=== PATIENT | female | born 1995 | race Caucasian/White ===

== ENCOUNTER 2023-02-17 13:00 | Outpatient (OUT) | payer BC, SELFPAY ==
--- NOTE | 2023-02-17 13:05 | US_ITS ---
[address] [address] Patient Name: DARRIUS VERGARA MRN: [id number] date: 1995 Sex: F Assigned Patient Location: US Current Patient Location: US Accession/Order Number: [id number] Exam Date: 02/17/2023 13:05 Report Date: 02/17/2023 15:37 At the request of: KATHY KIMBLE Procedure: US OB transvaginal EXAMINATION: US OB transvaginal HISTORY: MISSED MENSES COMPARISON: No relevant comparison available. FINDINGS: GESTATIONAL SAC: Present and normal appearing. YOLK SAC: Present and normal appearing. POLE: Present and normal appearing. CARDIAC: Present. UTERUS: Normal size and appearance. OVARIES: Right: Normal. Left: Normal. CERVIX: 3.3 cm in length and closed. CUL-DE-SAC: Normal. OTHER: None. AGE BY LMP: 8 weeks 3 days LASHELL BY LMP: 09/26/2023 AGE BY US CRL: 8 weeks 2 days LASHELL BY US CRL: 09/27/2023 US/US OB transvaginal IMPRESSION: 1. Single live intrauterine . Electronically authenticated by: CR MORENO Date: 02/17/2023 15:37
== END 2023-02-17 13:01 | disposition home or self-care (01) ==
LOC: US 13:00
PROVIDERS: Visit Provider Obstetrics & Gynecology
DX: Z34.91 Encounter for supervision of normal pregnancy, unspecified, first trimester (principal); Z3A.08 8 weeks gestation of pregnancy; N92.6 Irregular menstruation, unspecified
CPT/HCPCS: 76817

== ENCOUNTER 2023-03-01 14:10 | Outpatient (OUT) | payer BC, SELFPAY ==
--- OUTSIDE RECORDS SUMMARY | 2023-03-01 14:13 | XMS_ITS | CCD ---
Author Name Unknown Address [address] [place] [address] Organization [facility] Care Team Providers [facility] Manager Name Role Phone Mirna Bennett Primary Care Provider NO FAMILY, PHYSICIAN Primary Care Provider Unava Jammie Levy Attending Provider Mirna Bennett Primary Care Provider [phone] SAMSA, ANA Admitting Unavailable SAMSA, ANA Attending Unavailable SAMSA, ANA Consulting Unavailable SAMSA, ANA Admitting Unavailable SAMSA, ANA Attending Unavailable SAMSA, ANA Consulting Unavailable AGUBOSIM, KELSEY Consulting Unavailable RAAD, YARITZA Consulting Unavailable DR KATHY KIMBLE Admitting Unavailable SHYANNE, DR CHAVEZ Attending Unavailable DR KATHY KIMBLE Consulting Unavailable Julieth Winkler Unavailable Jammie Terry Unavailable Mirna Bennett MD Primary Care Provider ELICIA GONZALEZ Referring Unavailable MIRNA BENNETT Primary Care Unavailable ELICIA GONZALEZ Referring Unavailable MIRNA BENNETT Primary Care Unavailable Allergies Allergy Classification Reported Allergen(s) Allergy Type Date of Onset Reaction(s) Facility (2 sources) Amoxicillin-Pot Clavulanate Propensity to adverse reactions to drug 7 Other (See Comments) [facility] Phone: (3 sources) Bismuth-Containin g Compounds Propensity to adverse reactions to drug 6 [facility] Phone: (1 source) bismuth subsalicylate Drug Allergy 8 [facility] Repository (5 sources) bismuth subsalicylate Drug Allergy 1 hives, Other (See Comments) [facility] Medications Current Medications Medication Drug Class(es) Dates Sig (Normalized) Sig (Original) amoxicillin 500 mg oral capsule (1 source) Penicillin-class Antibacterial Start: 04-12-2022 take 1 capsule by mouth every eight hours Amoxicillin 500 MG 1 capsule Orally three times a day for 10 day(s) Mar, Active citalopram 10 mg oral tablet (4 sources) Serotonin Reuptake Inhibitor Start: 11-01-2017 take 1 tablet by mouth once daily citalopram (CELEXA) 10 MG tablet Take 1 tablet by mouth daily 30 tablet 3 12/17/2019 Active 21 day ethinyl estradiol 0.306332 mg/hr / etonogestrel 0.005 mg/hr vaginal system (7 sources) Progestin, Estrogen Start: 06-13-2018 NUVARING 0.12-0.015 MG/24HR vaginal ring NuvaRing Active fluocinonide 0.5 mg/ml topical cream (2 sources) Corticosteroid Start: 07-24-2019 fluocinonide (LIDEX) 0.05 % cream Apply topically 2 times daily. 60 g 1 07/24/2019 Active hydrocortisone 10 mg/ml / neomycin 3.5 mg/ml / polymyxin b 27705 unt/ml otic suspension (1 source) Aminoglycoside Antibacterial, Polymyxin-class Antibacterial, Corticosteroid Start: 04-12-2022 Ovlypfdy-Gwzhcztby-MX 3.5-49681-2 3 drops left ear Three times a day for 7 days Mar, Active ibuprofen 800 mg oral tablet (3 sources) Nonsteroidal Anti-inflammatory Drug Start: 07-03-2018 take 1 tablet by mouth three times daily as needed ibuprofen (ADVIL;MOTRIN) 800 MG tablet Take 800 mg by mouth 3 times daily as needed 0 07/03/2018 Active methylPREDNISolone 4 mg oral tablet (1 source) Corticosteroid Start: 11-30-2021 methylPREDNISolone 4 MG as directed Orally Once a day for 6 days Nov, Active omeprazole 20 mg delayed release oral capsule (4 sources) Proton Pump Inhibitor Start: 12-17-2019 take 1 capsule by mouth twice daily omeprazole (PRILOSEC) 20 MG delayed release capsule Take 1 capsule by mouth 2 times daily 30 capsule 3 12/17/2019 Active Start: 11-01-2017 take 1 capsule by mo [facility] once daily omeprazole (PRILOSEC) 40 MG delayed release capsule TAKE 1 CAPSULE BY MOUTH DAILY 30 capsule 1 11/01/2017 Active Phentermine (1 source) Sympathomimetic Amine Anorectic Adipex-P Active 0.25 mg, 0.5 mg dose 1.5 ml semaglutide 1.34 mg/ml pen injector (1 source) Ozempic (0.25 or 0.5 MG/DOSE) 2 MG/1.5ML Subcutaneous for 56 Days Active triamcinolone acetonide 1 mg/ml topical cream (2 sources) Corticosteroid Start: 06-29-2018 triamcinolone (KENALOG) 0.1 % cream Indications: Bug bite, initial encounter Apply topically 2 times daily. 45 g 0 06/29/2018 Active Wrist Splint/Right XL - (1 source) Wrist Splint/Rig ht XL - as directed Active Completed/Discontinued Medications Medication Drug Class(es) Dates Sig (Normalized) Sig (Original) ioversol (OPTIRAY) 74 % injection 100 mL (1 source) Start: 02-12-2022 End: 02-12-2022 ioversol (OPTIRAY) 74 % injection 100 mL promethazine hydrochloride 25 mg oral tablet (4 sources) Phenothiazine Start: 01-25-2022 End: 02-14-2022 take 1 tablet by mouth four times daily as needed for nausea promethazine (PHENERGAN) 25 MG tablet Take 1 tablet by mouth 4 times daily as needed for Nausea 40 tablet 1 01/25/2022 02/14/2022 Phenergan Active Problems Active Problems Problem Classification Problem Date Documented Date Episodic/Chronic Abdominal pain (2 sources) Right upper quadrant pain; Translations: [RUQ pain] Episodic Allergic reactions (3 sources) Atopic dermatitis; Translations: [Intrinsic (allergic) eczema] Onset: 07-24-2019 07-24-2019 Chronic Anxiety disorders (3 sources) Mixed anxiety and depressive disorder; Translations: [Other specified anxiety disorders] Onset: 05-26-2015 05-26-2015 Chronic Esophageal disorders (3 sources) Gastroesophageal reflux disease; Translations: [Gastro-esophageal reflux disease without esophagitis] Onset: 04-27-2016 04-27-2016 Chronic Immunizations and screening for infectious disease (5 sources) Encounter for screening for human papillomavirus (HPV); Translations: [Contact with and (suspected) exposure to other viral communicable diseases] Onset: 08-13-2021 Resolved: 11-11-2021 Episodic Other connective tissue disease (1 source) Trochanteric bursitis of left hip; Translations: [Trochanteric bursitis, left hip] Onset: 01-25-2022 01-25-2022 Episodic Other ear and sense organ disorders (1 source) Unspecified acute noninfective otitis externa, left ear Episodic Other injuries and conditions due to external causes (4 sources) Food in respiratory tract, part unspecified causing asphyxiation, initial encounter; Translations: [FOOD RESP TRACT PRT UNS ASPHYX INIT] Onset: 06-04-2021 Episodic Other lower respiratory disease (1 source) Dyspnea, unspecified; Translations: [DYSPNEA UNSPECIFIED] Onset: 06-09-2021 Episodic Other nutritional; endocrine; and metabolic disorders (1 source) Obesity, unspecified; Translations: [OBESITY UNSPECIFIED] Onset: 06-09-2021 Chronic Other nutritional; endocrine; and metabolic disorders (1 source) Body mass index (BMI) 33.0-33.9, adult; Translations: [BODY MASS INDEX BMI 33.0-33.9 ADULT] Onset: 06-09-2021 Chronic Other screening for suspected conditions (not mental disorders or infectious disease) (4 sources) Encounter for screening for malignant neoplasm of cervix; Translations: [ENC SCREENING MALIG NEOPLASM CERV] Onset: 08-12-2021 Episodic Other skin disorders (1 source) Foreign body granuloma of the skin and subcutaneous tissue Episodic Otitis media and related conditions (1 source) Otitis media, unspecified, left ear Episodic Sprains and strains (2 sources) Acetabular labrum tear; Translations: [Other sprain of left hip, initial encounter] Onset: 02-12-2022 Episodic Substance-related disorders (1 source) Nicotine dependence, cigarettes, uncomplicated; Translations: [NICOTINE DEPEND CIGARETTES UNCOMP] Onset: 06-09-2021 Chronic Unclassified (1 source) COUGH, UNSPECIFIED; Translations: [COUGH, UNSPECIFIED] Onset: 06-09-2021 Unclassified (1 source) PERSONAL HISTORY OF COVID-19; Translations: [PERSONAL HISTORY OF COVID-19] Onset: 06-09-2021 Unclassified (1 source) CONTACT W/AND (SUSP) EXPOS COVID-19; Translations: [CONTACT W/AND (SUSP) EXPOS COVID-19] Onset: 06-04-2021 Past or Other Problems Problem Classification Problem Date Documented Da te Episodic/Chronic Esophageal disorders (3 sources) Chalasia of lower esophageal sphincter; 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] Onset: 02-29-2016 12-01-2016 Episodic Nausea and vomiting (3 sources) Nausea and vomiting; Translations: [Nausea with vomiting, unspecified] Onset: 10-13-2016 10-13-2016 Episodic Other and unspecified benign neoplasm (3 sources) Benign neoplastic disease; Translations: [Melanocytic nevi, unspecified] Onset: 05-26-2015 05-26-2015 Episodic Other connective tissue disease (1 source) Pain in left finger(s) Onset: 08-17-2021 Resolved: 08-17-2021 Episodic Other connective tissue disease (1 source) Other enthesopathies, not elsewhere classified Onset: 08-17-2021 Resolved: 08-17-2021 Episodic Other infections; including parasitic (3 sources) Infestation by Sarcoptes scabiei rosmery hominis; Translations: [Scabies] Onset: 05-26-2015 Resolved: 09-29-2016 09-29-2016 Episodic Other non-traumatic joint disorders (2 sources) Knee pain; Translations: [Knee pain] Onset: 05-26-2015 05-26-2015 Episodic Other non-traumatic joint disorders (1 source) Pain in unspecified knee; Translations: [Pain in joint, lower leg] Onset: 05-26-2015 05-26-2015 Episodic Unclassified (2 sources) Patient encounter status; Translations: [Visit for gynecologic examination] Onset: 05-26-2015 Resolved: 11-24-2017 11-24-2017 Viral infection (3 sources) Plane wart; Translations: [Other viral warts] Onset: 05-26-2015 05-26-2015 Episodic Viral infection (1 source) COVID-19 Onset: 11-11-2021 Resolved: 11-11-2021 Results Test Name Value Interpretation Reference Range Facility IR INJ ARTHROGRAM HIP LEFTon 02-13-2022 IR INJ ARTHROGRAM HIP LEFT EXAMINATION: FLUOROSCOPIC GUIDED LEFT HIP ARTHROGRAM, 02/12/2022 8:45 am COMPARISON: None. HISTORY: ORDERING SYSTEM PROVIDED HISTORY: Tear of left acetabular labrum, initial encounter TECHNOLOGIST PROVIDED HISTORY: Is the patient ?->No FLUOROSCOPY DOSE AND TYPE OR TIME AND EXPOSURES: 54 seconds; D AP 83 cGy cm2 PROCEDURE: ELEMENTARY TUTOR: Gaudencio Chávez MD Informed consent was obtained and universal protocol was observed. Time out was performed with confirmation of patient identity, procedure to be performed and site. A skin entry site was selected with fluoroscopy. Under standard sterile condition, local anesthesia with subcutaneous 1% lidocaine was administered. A 22 gauge spinal needle was inserted into the left hip joint under fluoroscopic guidance. Approximately 15 mL of a standard mixture of iodinated contrast and gadolinium (0.2 cc ProHance in 50 cc Optiray 300) was injected. The needle was removed, spot images were obtained and a sterile bandage was placed. Spot views show adequate filling of the joint space. Patient is sent for subsequent MRI. EBL: None IMPRESSION: Successful fluoroscopic-guided left hip arthrogram. Patient was transferred to MRI for further imaging. Interpreted by: Gaudencio Chávez MD Signed by: Gaudencio Chávez MD 02/12/22 Final result Normal [facility] IR INJ ARTHROGRAM HIP LEFTon 02-12-2022 Successful fluoroscopic-guided left hip arthrogram. Patient was transferred to MRI for further imaging. [facility] RIS CONSOLIDATED EXAMINATION: FLUOROSCOPIC GUIDED LEFT HIP ARTHROGRAM, 02/12/2022 8:45 am COMPARISON: None. HISTORY: ORDERING SYSTEM PROVIDED HISTORY: Tear of left acetabular labrum, initial encounter TECHNOLOGIST PROVIDED HISTORY: Is the patient ?->No FLUOROSCOPY DOSE AND TYPE OR TIME AND EXPOSURES: 54 seconds; D AP 83 cGy cm2 PROCEDURE: ELEMENTARY TUTOR: Gaudencio Chávez MD Informed consent was obtained and universal protocol was observed. Time out was performed with confirmation of patient identity, procedure to be performed and site. A skin entry site was selected with fluoroscopy. Under standard sterile condition, local anesthesia with subcutaneous 1% lidocaine was administered. A 22 gauge spinal needle was inserted into the left hip joint under fluoroscopic guidance. Approximately 15 mL of a standard mixture of iodinated contrast and gadolinium (0.2 cc ProHance in 50 cc Optiray 300) was injected. The needle was removed, spot images were obtained and a sterile bandage was placed. Spot views show adequate filling of the joint space. Patient is sent for subsequent MRI. EBL: None [facility] RIS Gaudencio Escalona MD - 02/12/2022 EXAMINATION: FLUOROSCOPIC GUIDED LEFT HIP ARTHROGRAM, 02/12/2022 8:45 am COMPARISON: None. HISTORY: ORDERING SYSTEM PROVIDED HISTORY: Tear of left acetabular labrum, initial encounter TECHNOLOGIST PROVIDED HISTORY: Is the patient ?->No FLUOROSCOPY DOSE AND TYPE OR TIME AND EXPOSURES: 54 seconds; D AP 83 cGy cm2 PROCEDURE: ELEMENTARY TUTOR: Gaudencio Chávez MD Informed consent was obtained and universal protocol was observed. Time out was performed with confirmation of patient identity, procedure to be performed and site. A skin entry site was selected with fluoroscopy. Under standard sterile condition, local anesthesia with subcutaneous 1% lidocaine was administered. A 22 gauge spinal needle was inserted into the left hip joint under fluoroscopic guidance. Approximately 15 mL of a standard mixture of iodinated contrast and gadolinium (0.2 cc ProHance in 50 cc Optiray 300) was injected. The needle was removed, spot images were obtained and a sterile bandage was placed. Spot views show adequate filling of the joint space. Patient is sent for subsequent MRI. EBL: None IMPRESSION: Successful fluoroscopic-guided left hip arthrogram. Patient was transferred to MRI for further imaging. [facility] Phone: Radiology Study observation (narrative) [facility] Phone: IR INJ ARTHROGRAM HIP LEFTOr dered By: Gaudencio Chávez on 02-12-2022 [facility] Phone: MRI HIP LEFT W CONTRASTon MRI HIP LEFT W CONTRAST EXAMINATION: MRI OF THE LEFT HIP WITH CONTRAST, 02/12/2022 9:23 am TECHNIQUE: Multiplanar multisequence MRI of the left hip was performed with the administration of intravenous contrast. COMPARISON: Left hip plain radiographs from 12/14/2021, left hip arthrogram from 02/12/2022 HISTORY: ORDERING SYSTEM PROVIDED HISTORY: Tear of left acetabular labrum, initial encounter TECHNOLOGIST PROVIDED HISTORY: STAT Creatinine as needed:->No 26-year-old female with suspected left acetabular labral tear FINDINGS: BONE MARROW: Bone marrow signal intensity within the visualized osseous structures is within normal limits. No left femoral head AVN. HIP JOINT: Moderate contrast in the left hip joint space consistent with preceding arthrogram. Left femoral head properly located within the left acetabulum without clear evidence for acute fracture, dislocation or femoral head flattening. LABRUM: No left acetabular labral tear. No paralabral cyst formation. BURSAE: No significant fluid in the left iliopsoas or greater trochanteric bursa. SCIATIC NERVE: Visualized left-sided sciatic nerve demonstrates normal course, contour, and caliber on limited coronal T1-weighted imaging. MUSCLES / TENDONS: Visualized muscles/tendons appear grossly intact without evidence of tearing. INTRAPELVIC CONTENTS / SOFT TISSUES: Limited images of the intrapelvic contents demonstrate no acute abnormality. IMPRESSION: 1. No left acetabular labral tear or paralabral cyst formation. 2. No acute osseous abnormality. No left femoral head AVN. RECOMMENDATIONS: Unavailable Interpreted by: Anthony Villanueva MD Signed by: Anthony Villanueva MD 02/12/22 Final result Normal [facility] SARS-CoV-2 (COVID-19) RNA NA A+probe Ql (Resp)on 11-11-2021 SARS-CoV-2 (COVID-19) RNA ANNABELLE+probe Ql (Unsp spec) Positive [facility] Other PAP ACOG PANEL 2: 21 to 29on 08-17-2021 . . Normal [facility] Comment on above: Performed By: #### [id number] #### [facility] [address] [address] [address] Cesar Young Age Gdln ACOG Testing - Normal [facility] Comment on above: Performed By: #### [id number] #### [facility] [address] [place], [place] [address] Dr. Cesar Young DIAGNOSIS: Comment [facility] Comment on above: Result Comment: NEGA TIVE FOR INTRAEPITHELIAL LESION OR MALIGNANCY. Performed By: #### [id number] #### [facility] [address] [place], [place] [address] Dr. Cesar Young Methodology: Comment [facility] Comment on above: Result Comment: This liquid based ThinPrep(R) pap test was screened with the use of an image guided system. Performed By: #### [id number] #### [facility] [address] [place] [address] Dr. Cesar Young Note: Comment Normal [facility] Comment on above: Result Comment: The Pap smear is a screening test designed to aid in the detection of premalignant and malignant conditions of the uterine cervix. It is not a diagnostic procedure and should not be used as the sole means of detecting cervical cancer. Both false-positive and false-negative reports do occur. . Performed By: #### [id number] #### [facility] [address] [place] [address] Dr. Cesar Young Performed by: Comment Normal [facility] Comment on above: Result Comment: Linda Taveras, Value Advisor (ASCP) Performed By: #### [id number] #### [facility] [address] [place] [address] Dr. Cesar Young Reflex Criteria: Comment Normal [facility] Comment on above: Result Comment: The HPV DNA reflex criteria were not met with this specimen result therefore, no HPV testing was performed. . Performed By: #### [id number] #### [facility] [address] [place] [address] Dr. Cesar Young Specimen adequacy: Comment Normal [facility] Comment on above: Result Comment: Sati sfactory for evaluation. Endocervical and/or squamous metaplastic cells (endocervical component) are present. Performed By: #### [id number] #### [facility] [address] [place] [address] Dr. Cesar Young XR hand LT min 3V*on 022 XR hand LT min 3V* [facility] [place] [address] [place] [address] XRay Report Signed Patient: Vianey Chen MR#: [id number] 0 : 1995 Acct:[id number] Age/Sex: 26 / F ADM Date: 08/17/21 Loc: XDUCLY Room: Type: [facility] Attending Dr: Julieth Winkler NP-C Copies to: DAVID Salmeron Ordering Provider: DAVID Salmeron Date of Service: 08/17/21 XR/XR hand LT min 3V*: Pain of left thumb LEFT HAND - 4 views CLINICAL DATA: Patient injured left hand yesterday and has bruising, pain and swelling over the metacarpal phalangeal joint of the thumb and at the distal first metacarpal COMPARISON: None AP, lateral and oblique views were obtained along with a supplemental lateral view at the thumb. There is no evidence of fracture or dislocation. There are no significant soft tissue abnormalities. XR/XR hand LT min 3V* IMPRESSION: NO ACUTE BONY INJURY. Impression dictated by: Ailin Borrego M.D.08/17/2021 2:53 PM Dictation Location: [place] [address] Transcribed By: [facility] 08/17/21 1453 Dictated By: Ailin Borrego MD 08/17/21 1451 Signed By: 08/17/21 145 Normal [facility] XR hand LT min 3V* [facility] Other XR hand LT min 3V* [facility] Other XR hand LT min 3V* [address] [place] [address] [facility] Other XR hand LT min 3V* [place] [address] [facility] Other XR hand LT min 3V* XRay Report [facility] Other XR hand LT min 3V* Signed [facility] Other XR hand LT min 3V* Patient: Vianey Chen MR#: [id number] [facility] Other XR hand LT min 3V* 0 [facility] Other XR hand LT min 3V* : 1995 Acct:[id number] [facility] Other XR hand LT min 3V* Age/Sex: 26 / F ADM Date: 08/17/21 [facility] Other XR hand LT min 3V* Loc: XDUCLY Room: Type: [facility] Other XR hand LT min 3V* Attending Dr: Julieth HERNANDEZ [facility] Other XR hand LT min 3V* Copies to: DAVID Salmeron [facility] Other XR hand LT min 3V* Ordering Provider: DAVID Salmeron [facility] Other XR hand LT min 3V* Date of Service: 08/17/21 [facility] Other XR hand LT min 3V* XR/XR hand LT min 3V*: Pain of left thumb [facility] Other XR hand LT min 3V* LEFT HAND - 4 views [facility] Other XR hand LT min 3V* CLINICAL DATA: Patient injured left hand yesterday and has bruising, pain and swelling over the [facility] Other XR hand LT min 3V* metacarpal phalangea l joint of the thumb and at the distal first metacarpal [facility] Other XR hand LT min 3V* COMPARISON: None [facility] Other XR hand LT min 3V* AP, lateral and oblique views were obtained along with a supplemental lateral view at the thumb. [facility] Other XR hand LT min 3V* There is no evidence of fracture or dislocation. There are no significant soft tissue [facility] Other XR hand LT min 3V* abnormalities. No rt [employer] Other XR hand LT min 3V* XR/XR hand LT min 3V* [facility] Other XR hand LT min 3V* IMPRESSION: [facility] Other XR hand LT min 3V* NO ACUTE BONY INJURY. [facility] Other XR hand LT min 3V* Impression dictated by: Ailin Borrego M.D.08/17/2021 2:53 PM [facility] Other XR hand LT min 3V* Dictation Location: [facility] Other XR hand LT min 3V* Transcribed By: PWS 08/17/21 1453 [facility] Other XR hand LT min 3V* Dictated By: Ailin Borrego MD 08/17/21 145 [employer] Other XR hand LT min 3V* Signed By: [facility] Other XR hand LT min 3V* 08/17/21 1453 [facility] Other PREG HCG QUALon 06-04-2021 , QUAL Negative Normal NEGATIVE [facility] Comment on above: Performed By: #### P REG #### [facility] [address] [address] [address] Cesar Young [facility]on SARS-CoV-2 (COVID-19) RNA ANNABELLE+probe Ql (Unsp spec) Not detected Normal NOT DETECTED [facility] Comment on above: Result Comment: This test is not yet approved or cleared by the [place] FDA. When there are no FDA-approved or cleared tests available, and other criteria are met, FDA can make tests available under an emergency access mechanism called an Emergency Use Authorization (EUA). The EUA for this test is supported by the Service Cleaner of Health and Human Service's (HHS's) declaration that circumstances exist to justify the emergency use of in vitro diagnostics for the detection and/or diagnosis of the virus that causes COVID-19. This EUA will remain in effect (meaning this test can be used) for the duration of the COVID-19 declaration justifying emergency of IVDs, unless it is terminated or revoked by FDA (after which the test may no longer be used). When diagnostic testing is negative, the possibility of a false negative should be considered in the context of a patient's recent exposures and the presence of clinical signs and symptoms consistent with SARS-CoV-2. Performed By: #### [facility] #### [facility] [address] [place], [place] [address] Dr. Cesar Young [id number] 03-28-2021 SARS-CoV-2 (COVID-19) RNA ANNABELLE+probe Ql (Unsp spec) Normal [facility] Comment on above: Performed By: #### C OVID #### [address] [address] [place] [address] Consultant Intern: Vijay Tinsley MD SARS-CoV-2 (COVID-19) RNA ANNABELLE+probe Ql (Unsp spec) Detected Abnormal [facility] Comment on above: Result Comment: The specimen is POSITIVE for SARS-Cov-2, the novel coronavirus associated with COVID-19. Millie SARS-CoV-2 for use on the [employer]/8800 Systems is a real-time RT-PCR test intended for the qualitative detection of nucleic acids from SARS-CoV-2 in clinician-collected nasal, nasopharyngeal, and oropharyngeal swab specimens from individuals who meet COVID-19 clinical and/or epidemiological criteria. [facility] SARS-CoV-2 is for use only under Emergency Use Authorization (EUA) in laboratories certified under Clinical Laboratory Improvement Amendments of 1988 (CLIA), 42 U.S.C. ?263a, that meet requirements to perform high or moderate complexity tests. An individual without symptoms of COVID-19 and who is not shedding SARS-CoV-2 virus would expect to have a negative (not detected) result in this assay. Fact sheet for Healthcare Providers: https://www.fda.gov/media/416050/download Fact sheet for Patients: https://www.fda.gov/media/596140/download METHODOLOGY: RT-PCR Results reported to the appropriate Health Department Performed By: #### C OVID #### [facility] [address] [place], [place] [address] Consultant Intern: Vijay Tinsley MD [id number] 03-27-2021 SARS-CoV-2 (COVID-19) RNA ANNABELLE+probe Ql (Unsp spec) NOT REPORTED Normal [facility] Comment on above: Performed By: #### C OVID #### [facility] [address] [place] [address] Consultant Intern: Vijay Tinsley MD CBC Auto Differentialon 04-01 Basophils (Bld) [#/Vol] 0.10 10*3/uL [facility] Phone: Basophils/100 WBC (Bld) 1 % 0 - 2 % [facility] Phone: Differential Type NOT REPORTED [facility] Phone: Eosinophils (Bld) [#/Vol] 0.20 10*3/uL [facility] Phone: Eosinophils/100 WBC (Bld) 2 % 0 - 4 % [facility] Phone: Erythrocyte distribution width (RBC) [Ratio] 13.9 % 11.5 - 14.9 % [facility] Phone: Hematocrit (Bld) [Volume fraction] 43.1 % 36 - 46 % [facility] Phone: Hemoglobin (Bld) [Mass/Vol] 14.2 g/dL 12 - 16 g/dL [facility] Phone: Lymphocytes (Bld) [#/Vol] 2.10 10*3/uL [facility] Phone: Lymphocytes/100 WBC (Bld) 25 % 24 - 44 % [facility] Phone: MCH (RBC) [Entitic mass] 28.7 pg 26 - 34 pg [facility] Phone: MCHC (RBC) [Mass/Vol] 33.0 g/dL 31 - 37 g/dL [facility] Work Phone: MCV (RBC) [Entitic vol] 87.2 fL 80 - 100 fL [email or web address] Work Phone: Monocytes (Bld) [#/Vol] 0.60 10*3/uL [facility] Work Phone: Monocytes/100 WBC (Bld) 7 % 1 - 7 % [email or web address] Work Phone: Platelet mean volume (Bld) [Entitic vol] 7.7 fL 6 - 12 fL [email or web address] Work Phone: Platelets (Bld) [#/Vol] 359 10*3/uL [email or web address] Work Phone: Platelets (Bld) [#/Vol] NOT REPORTED [facility] Work Phone: RBC (Bld) [#/Vol] 4.94 10*6/uL 4 - 5.2 m/uL [facility] Work Phone: RBC morphology finding Nom (Bld) NOT REPORTED [facility] Work Phone: Segmented neutrophils/100 WBC (Bld) 65 % 36 - 66 % [facility] Work Phone: Segs Absolute 5.40 [facility] Work Phone: WBC (Bld) [#/Vol] NOT REPORTED per 100 WBC [facility] Work Phone: WBC (Bld) [#/Vol] 8.4 10*3/uL [facility] Work Phone: WBC Morphology NOT REPORTED [facility] Work Phone: Comprehensive Metabolic Pane dawit 04-24-2020 Albumin [Mass/Vol] 3.9 g/dL 3.5 - 5.2 g/dL [facility] Work Phone: Albumin/Globulin [Mass ratio] NOT REPORTED [facility] Work Phone: ALP [Catalytic activity/Vol] 59 U/L 35 - 104 U/L [facility] Phone: ALT [Catalytic activity/Vol] 19 U/L 5 - 33 U/L [facility] Phone: Anion gap [Moles/Vol] 10 mmol/L 9 - 17 mmol/L [facility] Phone: AST [Catalytic activity/Vol] 15 U/L <32 [facility] Phone: Bilirubin Ql (U) <0.15 Low 0.3 - 1.2 mg/dL [facility] Phone: Bun/Cre Ratio NOT REPORTED [facility] Work Phone: Calcium [Mass/Vol] 9.2 mg/dL 8.6 - 10. 4 mg/dL [facility] Phone: Chloride [Moles/Vol] 104 mmol/L 98 - 107 mmol/L [facility] Phone: CO2 [Moles/Vol] 25 mmol/L 20 - 31 mmol/L [facility] Phone: Creatinine [Mass/Vol] 0.68 mg/dL 0.5 - 0.9 mg/dL [facility] Phone: GFR >60 >60 mL/min [facility] Phone: GFR Non- >60 >60 mL/min [facility] Phone: GFR/1.73 sq M predicted among non-blacks MDRD (S/P/Bld) [Vol rate/Area] [facility] Phone: Comment on above: Average GFR for 20-2 9 years old: 116 mL/min/1.73sq m Chronic Kidney Disease: <60 mL/min/1.73sq m Kidney failure: <15 mL/min/1.73sq m eGFR calculated using average adult body mass. Additional eGFR calculator available at: http://www.COCC.com/multiple_crcl_2012.htm GFR/1.73 sq M predicted among non-blacks MDRD (S/P/Bld) [Vol rate/Area] NOT REPORTED [facility] Phone: Glucose [Mass/Vol] 135 mg/dL High 70 - 99 mg/dL [facility] [employer] Phone: Interpretation and review of laboratory results Abnormal [facility] Phone: Potassium [Moles/Vol] 3.7 mmol/L 3.7 - 5.3 mmol/L [facility] Phone: Protein [Mass/Vol] 7.1 g/dL 6.4 - 8.3 g/dL [employer] Phone: Sodium [Moles/Vol] 139 mmol/L 135 - 144 mmol/L [facility] Phone: Urea nitrogen [Mass/Vol] 11 mg/dL 6 - 20 mg/dL [facility] Phone: Otheron 04-24-2020 Immature granulocytes (Bld) [#/Vol] NOT REPORTED 0 % [facility] Phone: US GALLBLADDER RUQon 04-24- 021 Unremarkable right upper quadrant ultrasound. [facility] Phone: EXAMINATION: RIGHT UPPER QUADRANT ULTRASOUND 04/24/2020 8:04 am COMPARISON: None. HISTORY: ORDERING SYSTEM PROVIDED HISTORY: RUQ pain FINDINGS: LIVER: The liver demonstrates normal echogenicity without evidence of intrahepatic biliary ductal dilatation. Liver length is 15.1 cm. Portal vein demonstrates hepatopetal flow. BILIARY SYSTEM: Gallbladder is unremarkable without evidence of pericholecystic fluid, wall thickening or stones. Negative sonographic Nelson's sign. Common bile duct is within normal limits measuring 4 mm. RIGHT KIDNEY: The right kidney is grossly unremarkable without evidence of hydronephrosis. PANCREAS: Visualized portions of the pancreas are unremarkable. OTHER: No evidence of right upper quadrant ascites. [facility] Phone: Erick, [employer] Incoming Radiant Results From [employer] - 04/24/2020 8:18 AM EST EXAMINATION: RIGHT UPPER QUADRANT ULTRASOUND 04/24/2020 8:04 am COMPARISON: None. HISTORY: ORDERING SYSTEM PROVIDED HISTORY: RUQ pain FINDINGS: LIVER: The liver demonstrates normal echogenicity without evidence of intrahepatic biliary ductal dilatation. Liver length is 15.1 cm. Portal vein demonstrates hepatopetal flow. BILIARY SYSTEM: Gallbladder is unremarkable without evidence of pericholecystic fluid, wall thickening or stones. Negative sonographic Nelson's sign. Common bile duct is within normal limits measuring 4 mm. RIGHT KIDNEY: The right kidney is grossly unremarkable without evidence of hydronephrosis. PANCREAS: Visualized portions of the pancreas are unremarkable. OTHER: No evidence of right upper quadrant ascites. IMPRESSION: Unremarkable right upper quadrant ultrasound. [facility] Phone: Vital Signs Date Time Vital Sign Value Performing Clinician Facility 04-12-2022 10:30-0500 Body height 152.4 cm Julieth Agarwalmond Other [facility] Other 04-12-2022 10:30-0500 Body mass index (BMI) [Ratio] 41.59 kg/m2 Julieth Agarwalmond Other [facility] Other 04-12-2022 10:30-0500 Body temperature 98.5 [degF] Julieth Agarwalmond Other [facility] Other 04-12-2022 10:30-0500 Body weight 96.62 kg Julieth Agarwalmond Other [facility] Other 04-12-2022 10:30-0500 Diastolic blood pressure 87 mm[Hg] Julieth Agarwalmond Other [facility] Other 04-12-2022 10:30-0500 Respiratory rate 18 /min Julieth Cathi Other [facility] 04-12-2022 10:30-0500 SaO2% (BldA) [Mass fraction] 98 % Julieth Winkler Other [facility] 04-12-2022 10:30-0500 Systolic blood pressure 141 mm[Hg] Julieth Winlker Other [facility] 11-30-2021 17:00-0400 Body height 152.4 cm Jammie Mara Other [facility] Other 11-30-2021 17:00-0400 Body mass index (BMI) [Ratio] 39.06 kg/m2 Jammie Mara Other [facility] 11-30-2021 17:00-0400 Body temperature 97.6 [degF] Jammie Terry Other [facility] Other 11-30-2021 17:00-0400 Body weight 90.72 kg Jammie Mara Other [facility] Other 11-30-2021 17:00-0400 Diastolic blood pressure 84 mm[Hg] Jammie Terry Other [facility] Other 11-30-2021 17:00-0400 Respiratory rate 18 /min Jammie Mara Other [facility] Other 11-30-2021 17:00-0400 SaO2% (BldA) [Mass fraction] 99 % Jammie Terry Other [facility] 11-30-2021 17:00-0400 Systolic blood pressure 132 mm[Hg] Jammie Terry Other [facility] 11-11-2021 10:30-0400 Body height 152.4 cm Julieth Winkler Other [facility] Other 11-11-2021 10:30-0400 Body mass index (BMI) [Ratio] 37.1 kg/m2 Julieth Cathi Other [facility] Other 11-11-2021 10:30-0400 Body temperature 98.1 [degF] Julieth Cathi Other [facility] 11-11-2021 10:30-0400 Body weight 86.18 kg Julieth Agarwalmond Other [facility] Other 11-11-2021 10:30-0400 Respiratory rate 18 /min Julieth Winkler Other [facility] Other 11-11-2021 10:30-0400 SaO2% (BldA) [Mass fraction] 99 % Julieth Winkler Other [facility] 08-17-2021 14:55-0400 Body height 152.4 cm Julieth Cathi Other [facility] 08-17-2021 14:55-0400 Body mass index (BMI) [Ratio] 39.84 kg/m2 Julieth Cathi Other [facility] 08-17-2021 14:55-0400 Body temperature 97.8 [degF] Julieth Cathi Other [facility] Other 08-17-2021 14:55-0400 Body weight 92.53 kg Julieth Winkler Other [facility] Other 08-17-2021 14:55-0400 Diastolic blood pressure 74 mm[Hg] Julieth Winkler Other [facility] 08-17-2021 14:55-0400 Respiratory rate 18 /min Julieth Winkler Other [facility] 08-17-2021 14:55-0400 SaO2% (BldA) [Mass fraction] 99 % Julieth Winkler Other [facility] Other 08-17-2021 14:55-0400 Systolic blood pressure 134 mm[Hg] Julieth Winkler Other [facility] Other Encounters Encounter Date Encounter Type Care Provider Facility Start: 02-17-2023 End: 02-17-2023 ambulatory Not Available Start: 04-12-2022 End: 04-12-2022 ambulatory Julieth Winkler Other [facility] Other Start: 04-12-2022 Office outpatient vi sit 15 minutes Julieth Winkler [facility] Start: 02-12-2022 End: 02-15-2022 ambulatory ELICIA GONZALEZ [facility] Start: 02-12-2022 End: 02-14-2022 Subsequent hospital visit by physician [facility] Ir Nurse 1 [facility] Special Procedures Comment on above: Tear of left acetabu lar labrum, initial encounter Start: 11-30-2021 End: 11-30-2021 ambulatory Jammie Terry Other [facility] Other Start: 11-30-2021 Office outpatient vi sit 15 minutes Jammie Terry [facility] Start: 11-11-2021 End: 11-11-2021 ambulatory Julieth Winkler Other [facility] Start: 11-11-2021 Office outpatient vi sit 15 minutes Julieth Cathi [facility] Start: 08-17-2021 End: 08-17-2021 ambulatory Julieth Winkler Other [facility] Start: 08-17-2021 Office outpatient vi sit 15 minutes Julieth Cathi [facility] Start: 08-12-2021 End: 08-12-[address] KATHY KIMBLE Facility:[facility]1 Start: 06-04-2021 Encounter for preprocedural laboratory examination [facility] Start: 06-04-2021 End: 06-04-2021 ambulatory [facility] Facility:[facility]1 Start: 06-02-2021 End: 06-03-2021 ambulatory [facility] Facility:[facility] Start: 06-02-2021 End: 06-03-2021 Encounter for preprocedural laboratory examination [facility] Facility:[facility] Start: 07-01-2020 End: 07-01-2020 Patient encounter procedure PHYSICIAN NO FAMILY -Ultrasound [facility] Start: 06-27-2020 End: 06-27-2020 Patient encounter procedure [facility]IC[facility] Start: 04-24-2020 End: 04-24-2020 Subsequent hospital visit by physician Mirna FERNÁNDEZ Laboratory Comment on above: RUQ pain Start: 04-24-2020 End: 04-26-2020 Subsequent hospital visit by physician Ultrasound Rm 105 [facility] Ultrasound Comment on above: RUQ pain Start: 05-26-2015 End: 11-24-2017 Patient encounter status [facility] 104 [facility] Procedures Date Procedure Procedure Detail Performing Clinician Start: 02-12-2022 IR ARTHROGRAM HIP LEFT Elicia Gonzalez [facility] Work Phone: Start: 06-27-2020 Plain X-ray of left tibia and left fibula PHYSICIAN NO FAMILY Start: 06-27-2020 Radiologic examinati on of knee PHYSICIAN NO FAMILY Start: 04-24-2020 Blood count complete auto&auto difrntl wbc Camron Alicea Work Phone: Start: 04-24-2020 Comprehensive metabo lic panel Camron Alicea Work Phone: Start: 04-24-2020 Us abdominal real ti me w/image limited Camron Alicea Work Phone: Plan of Treatment Date Care Activity Detail Author Start: 03-27-2022 Depression Monitoring Depression Mon itoring [facility] Start: 09-28-2021 Influenza vaccination Flu vaccine (# 1) [facility] Start: 04-22-2021 Influenza vaccination Flu vaccine (# 1) [facility] Phone: Comment on above: Postponed from 10/29 (Patient Refused) Start: 04-22-2021 Pneumococcal 0-64 ye ars Vaccine (1 of 1 - PPSV23) Pneumococcal 0-64 years Vaccine (1 of 1 - PPSV23) [facility] Phone: Comment on above: Postponed from 02/19 (Patient Refused) Start: 04-07-2021 DTaP/Tdap/Td vaccine (7 - Td or Tdap) DTaP/Tdap/Td vaccine (7 - Td or Tdap) [facility] Start: 04-07-2021 DTaP/Tdap/Td vaccine (7 - Td) DTaP/Tdap/Td vaccine (7 - Td) [facility] Phone: Start: 07-01-2020 Duplex scan of lower limb veins US venous duplex LE [facility] Start: 02-20-2016 Screening for malign ant neoplasm of cervix [facility] Start: 2013 Hepatitis C screening Hepatitis C sc reen [employer] Start: 2010 HIV screening HIV screen [facility] [employer] Start: 2001 Pneumococcal 0-64 ye ars Vaccine (1 - PCV) Pneumococcal 0-64 years Vaccine (1 - PCV) [facility] Start: 1995 COVID-19 Vaccine (#1) COVID-19 Vacci ne (#1) [employer] Start: 1995 Hepatitis C screening Hepatitis C sc melissaanya [facility] Phone: End: 02-12-2022 IR INJ ARTHROGRAM HIP LEFT IR INJ ARTHROGRAM HIP LEFT Imaging Routine Tear of left acetabular labrum, initial encounter 1 Occurrences starting 02/12/2022 until 02/12/2022 [facility] Phone: Comment on above: 1 Occurrences starti ng 02/12/2022 until 02/12/2022 Immunizations Immunization Date Immunization Notes Care Provider Fa lilia 04-07-2011 human papilloma viru s vaccine, quadrivalent [facility] Phone: 04-07-2011 tetanus toxoid, redu julia diphtheria toxoid, and acellular pertussis vaccine, adsorbed [facility] Phone: 02-04-2010 influenza virus vacc ine, unspecified formulation [facility] Phone: 12-23-2009 human papilloma viru s vaccine, quadrivalent [facility] Phone: 12-23-2009 meningococcal ACWY vaccine, unspecified formulation [facility] Phone: 04-23-2009 human papilloma viru s vaccine, quadrivalent [facility] Phone: 10-21-2000 diphtheria, tetanus toxoids and acellular pertussis vaccine [facility] Phone: 10-21-2000 measles, mumps and r ubella virus vaccine [facility] Phone: 07-25-1997 diphtheria, tetanus toxoids and acellular pertussis vaccine [facility] Phone: 07-25-1997 hepatitis B vaccine, adult dosage [facility] Phone: 07-25-1997 hepatitis B vaccine, unspecified formulation [facility] Phone: 07-25-1997 Hib, unspecified [facility] Bennett [facility] Work Phone: 07-19-1997 poliovirus vaccine, unspecified formulation Mirna Bennett [facility] Work Phone: 09-27-1996 diphtheria, tetanus toxoids and acellular pertussis vaccine Mirna Bennett [facility] Work Phone: 09-27-1996 Hib, unspecified Mirna Bennett [facility] Work Phone: 09-27-1996 measles, mumps and r ubella virus vaccine [facility] [employer] Phone: 09-27-1996 poliovirus vaccine, unspecified formulation Mirna Bennett [facility] Work Phone: 1995 diphtheria, tetanus toxoids and acellular pertussis vaccine Mirna Bennett [facility] Work Phone: 1995 Hib, unspecified Mirna Bennett [facility] Work Phone: 1995 poliovirus vaccine, unspecified formulation Mirna Bennett [facility] [employer] Phone: 1995 diphtheria, tetanus toxoids and acellular pertussis vaccine Mirna Bennett [facility] [employer] Phone: 1995 hepatitis B vaccine, adult dosage [facility] Work Phone: 1995 hepatitis B vaccine, unspecified formulation [facility] Work Phone: 1995 Hib, unspecified Mirna Bennett [facility] Work Phone: 1995 poliovirus vaccine, unspecified formulation Mirna [facility] Work Phone: 1995 hepatitis B vaccine, adult dosage [facility] Work Phone: 1995 hepatitis B vaccine, unspecified formulation Mirna [facility] Work Phone: Payers Date Payer Category Payer Unknown [id number] 2.16.84 [id number] 1995 Unknown [id number] 2.16.84 [id number] 1995 Unknown [id number] 2.16.84 [id number] 1995 Unknown [id number] 2.16.8 [id number] 1995 Unknown [id number] 2.16.8 [id number] 1995 Unknown [id number] 1959 Unknown [id number] Self-pay Self Pay [id number] Unknown Self Pay [id number] Unknown Self Pay [id number] Social History Date Type Detail Facility Start: 04-22-2020 End: 12-16-2021 Tobacco smoking status LAIS Current every day smoker MAI MCCLELLAND [employer] History of tobacco use Cigarette Smoker [facility] [employer] Phone: Start: 04-22-2020 End: 12-16-2021 Cigarettes smoked current (pack per day) - Reported [facility] Phone: Start: 04-22-2020 End: 12-16-2021 Tobacco use and exposure Never used [facility] Phone: Start: 04-22-2020 End: 02-05-2022 Alcohol intake Current drinker of alcohol (finding) [facility] Phone: Start: 03-24-2015 Alcohol Comment occasional [employer] Work Phone: Start: 1995 Sex Assigned At Not on file M [employer] Work Phone: Start: 1995 Sex Assigned At Female F [facility] Sex Assigned At Sex Assigned At Bir th [facility] Other Start: 02-03-2022 History SDOH Physica l Activity DPW 0 [facility] Phone: Start: 03-27-2021 History SDOH Financial 5 [facility] Phone: Start: 02-03-2022 History SDOH IPV Fear 2 [facility] Phone: Start: 03-27-2021 History SDOH Food Worry 1 [facility] Phone: Start: 01-26-2022 End: 02-05-2022 Exposure to SARS-CoV-2 (event) Not sure [employer] Goals Date Patient Goal Desired Activity /State Evaluation note 04-12-2022 Note Date & Type Note Facility 04-12-2022 Evaluation note Encounter Date Diagnosis Assessment Notes Mar, Left otitis media, unspecified otitis media type (ICD-10 - H66.92) Middle ear infection: adult home care material was printed Drink plenty fluids, get plenty of rest. Take the amoxicillin as prescribed until gone. Use eardrops as prescribed. Take Tylenol or Motrin as needed for aches pains or fevers. Follow-up with your family physician if no improvement in 2 to 3 days. Mar, Acute otitis externa of left ear, unspecified type (ICD-10 - H60.502) [facility] Other History of Present illness Narrative 02-12-2022 Analia Sin RN - 02/12/2022 8:30 AM EST Note Date & Type Note Facility 02-12-2022 History of Presen t illness Narrative Patient tolerated left hip injections without distress. Dry dressing to site. Patient to MRI for further imaging. documented in this encounter [email or web address] Work Phone: Evaluation note 11-30-2021 Note Date & Type Note Facility 11-30-2021 Evaluation note Encounter Date Diagnosis Assessment Notes Nov, Tattoo reaction (ICD-10 - L92.3) Use medication as directed. complete all doses. Recommend unscented soap to area [facility] Other Evaluation note 11-11-2021 Note Date & Type Note Facility 11-11-2021 Evaluation note Encounter Date Diagnosis Assessment Notes Oct, Contact with and (suspected) exposure to other viral communicable diseases (ICD-10 - Z20.828) Oct, COVID-19 (ICD-10 - U07.1) Discharge Instructions for COVID-19 (Suspected or Confirmed ) material was printed Drink plenty fluids, get plenty of rest. Take Tylenol or Motrin as needed for aches pains or fever. You must quarantine for 5 days after the onset of your symptoms of COVID. Follow-up with your family physician if no improvement in 2 to 3 days. [facility] Other Evaluation note 08-17-2021 Note Date & Type Note Facility 08-17-2021 Evaluation note Encounter Date Diagnosis Assessment Notes Jul, Pain of left thumb (ICD-10 - M79.645) Jul, Thumb tendonitis (ICD-10 - M77.8) Jul, Other Wear the splint is much as possible. Take ibuprofen up to 600 mg up to 3 times a day with food as needed for pain and swelling. Follow-up with your family physician if no improvement in 5 to 7 days, Tendonitis home care material was printed [facility] Other Evaluation note Note Date & Type Note Facility Evaluation note No Assessments Information [facility] Evaluation note Note Date & Type Note Facility Evaluation note Diagnosis Tear of left acetabular labrum, initial encounter documented in this encounter [employer] Phone: History general Narrative - Reported Note Date & Type Note Facility History general Narrative - Reported Type Surgical History laparoscopy female Surgical History appendectomy Surgical History bronchoscopy [facility] Other History general Narrative - Reported Note Date & Type Note Facility History general Narrative - Reported Type Medical History Esophageal reflux Surgical History laparoscopy female Surgical History appendectomy Surgical History bronchoscopy [facility] Other Hospital Discharge instructions Attachments Note Date & Type Note Facility Hospital Discharge instructions The following attachments cannot be sent through Care Everywhere.Joint Injections (Czech)documented in this encounter [facility] Phone: Assessments Diagnosis RUQ pain Abdominal pain, right upper quadrant Diagnosis RUQ pain Abdominal pain, right upper quadrant Advance Directives No Advanced Directives Records FoundDocuments on File Type Date Recorded Patient Lead Radiologic Technologist Expl anation ACP-Advance Directive ACP-Power of Stock Buyer Documents on File Type Date Recorded Patient Lead Radiologic Technologist Expl anation ACP-Advance Directive ACP-Power of Stock Buyer Advance Directive Response Recorded Date/ Time Advance Directives No October 09, 2017 12:18pm Reason for Referral Status Reason Specialty Diagnoses / Procedures Referre d By Contact Referred To Contact Closed Radiology Diagnoses RUQ pain Procedures [place] [address] [place] [address] Specialty Diagnoses / Procedures Referred By Contac t Referred To Contact Radiology Diagnoses Tear of left acetabular labrum, initial encounter Procedures IR [place] [address] [place] [address] Referral ID Status Reason Start Date Expiration Date Visits Re quested Visits Authorized [id number] Closed 02/12/2022 02/12/2023 1 1 Specialty Diagnoses / Procedures Referred By Contac t Referred To Contact Radiology Diagnoses Tear of left acetabular labrum, initial encounter S73.192A (ICD-10-CM) - Tear of left acetabular labrum, initial encounter Procedures IR INJ ARTHROGRAM HIP LEFT OR INJECTION HIP ARTHROGRAM [id number] - OR [place]JE[place] [address] [place] [address] Referral ID Status Reason Start Date Expiration Date Visits Re quested Visits Authorized [id number] Closed 02/05/2022 02/05/2023 1 1 Chief Complaint and Reason for Visit Chief Complaint Tenderness of left c retirement Summary Purpose Family History No Family History Records FoundNo Family History Records FoundNo Family History Records FoundNo Family History Records FoundNo Family History Records Found Additional Source Comments Reason for Visit (unrecogniz ed section and content) Status Reason Specialty Diagnoses / Procedures Referre d By Contact Referred To Contact Closed Radiology Diagnoses RUQ pain Procedures [place] [address] [place] [phone] Specialty Diagnoses / Procedures Referred By Contac t Referred To Contact Radiology Diagnoses Tear of left acetabular labrum, initial encounter S73.192A (ICD-10-CM) - Tear of left acetabular labrum, initial encounter Procedures IR INJ ARTHROGRAM HIP LEFT OR INJECTION HIP ARTHROGRAM [id number] - OR [place] [address] [place] [address] Referral ID Status Reason Start Date Expiration Date Visits Re quested Visits Authorized [id number] Closed 02/05/2022 02/05/2023 1 1 INFORMATION SOURCE (unrecogn ized section and content) DATE CREATED AUTHOR 03/29/2021 [facility] DATE CREATED AUTHOR AUTHOR'S ORGANIZ ATION 08/17/2021 [facility] DATE CREATED AUTHOR AUTHOR'S ORGANIZ ATION 08/18/2021 [facility] DATE CREATED AUTHOR AUTHOR'S ORGANIZ ATION 02/18/2022 [facility] DATE CREATED AUTHOR AUTHOR'S ORGANIZ ATION 02/18/2023 [facility] EP[employer] Care Teams (unrecognized sec tion and content) Senior Center Manager Relationship Specialty [place] [id number] [address] [address] [place] [address] [place] [address] PCP - General Family Medicine 03/11/15 FOR RECORDS PERTAINING TO PATIENTS WHO ARE OR HAVE BEEN ENROLLED IN A CHEMICAL DEPENDENCY/SUBSTANCEABUSE PROGRAM, SOME INFORMATION MAY BE OMITTED. This clinical summary was aggregated from multiple sources. Caution should be exercised in using it in the provision of clinical care. This summary normalizes information from multiple sources, and as a consequence, information in this document may materially change the coding, format and clinical context of patient data. In addition, data may be omitted in some cases. CLINICAL DECISIONS SHOULD BE BASED ON THE PRIMARY CLINICAL RECORDS. [employer] provides no warranty or guarantee of the accuracy or completeness of information in this document.
[2023-03-01 14:31] LABS: BOX Test Sent Out Y
[2023-03-01 14:33] LABS: Basophils Absolute Auto 0.1 10^3/uL (0.0-0.1); Basophils Percent Auto 0.6 % (0.2-2.0); Eosinophils Absolute Auto 0.1 10^3/uL (0.0-0.7); Eosinophils Percent Auto 0.9 % (0.9-7.0); Immature Granulocytes Abs Auto 0.03 10^3/uL (0.00-0.03); Immature Granulocytes Pct Auto 0.3 % (0.0-0.5); Lymphocytes Absolute Auto 1.9 10^3/uL (1.2-3.8); Lymphocytes Percent Auto 19.4 % (20.5-60.0); Mean Corpuscular HGB Conc 33.3 g/dL (29.9-35.2); Mean Corpuscular Hemoglobin 29.9 pg (26.7-34.0); Mean Corpuscular Volume 89.7 fL (81.0-99.0); Mean Platelet Volume 9.8 fL (9.5-13.5); Monocytes Absolute Auto 0.6 10^3/uL (0.3-0.8); Monocytes Percent Auto 5.8 % (1.7-12.0); Neutrophils Absolute Auto 7.3 10^3/uL (1.4-6.5); Platelet Count 355 10^3/uL (150-450); Red Blood Count 4.68 10^6/uL (4.20-5.40); Red Cell Distribution Width 13.3 % (11.0-15.0)
[2023-03-01 15:59] LABS: Estimated Average Glucose 100 mg/dL; Glycohemoglobin A1C 5.1 % (4.5-6.2)
[2023-03-01 16:58] LABS: Thyroid Stimulating Hormone 1.055 uIU/mL (0.358-3.740)
[2023-03-02 07:09] LABS: HBsAg Screen Negative (Negative); HIV Ab/p24 Ag Screen Non Reactive (Non Reactive)
[2023-03-02 08:10] LABS: HCV Ab Non Reactive (Non Reactive)
[2023-03-02 12:08] LABS: Rapid Plasma Reagin, Quant Non Reactive titer (NonRea<1:1)
== END 2023-03-01 14:11 | disposition home or self-care (01) ==
LOC: LAB 14:10
PROVIDERS: Visit Provider Obstetrics & Gynecology
DX: N92.6 Irregular menstruation, unspecified (principal); Z36.0 Encounter for antenatal screening for chromosomal anomalies
CPT/HCPCS: 36415; 83036; 84443; 85025; 86592; 86762; 86803; 86850; 86900; 86901; 87086; 87340; 87389

== ENCOUNTER 2023-04-14 21:38 | Outpatient (REF) | payer BC, SELFPAY ==
--- OUTSIDE RECORDS SUMMARY | 2023-04-14 21:42 | XMS_ITS | CCD ---
Author Name Unknown Address [address] [place] [address] Organization [facility] Care Team Providers Care Printed Circuit Board Panels Developer Name Role Phone Mirna Bennett Primary Care Provider NO FAMILY, PHYSICIAN Primary Care Provider Unava Jammie Levy Attending Provider Mirna eBnnett Primary Care Provider SAMSA, ANA Admitting Unavailable SAMSA ANA Attending Unavailable SAMSA, ANA Consulting Unavailable SAMSA, ANA Admitting Unavailable SAMSA, ANA Attending Unavailable SAMSA, ANA Consulting Unavailable AGUBOSIM, KELSEY Consulting Unavailable RAAD, YARITZA Consulting Unavailable DR KATHY KIMBLE Admitting Unavailable DR KATHY KIBMLE Attending Unavailable DR KATHY KIMBLE Consulting Unavailable Julieth Winkler Unavailable Jammie Terry Unavailable Mirna Bennett MD Primary Care Provider ELICIA GONZALEZ Referring Unavailable MIRNA BENNETT Primary Care Unavailable ELICIA GONZALEZ Referring Unavailable MIRNA BENNETT Primary Care Unavailable KATHY KIMBLE Attending Unavailable Allergies Allergy Classification Reported Allergen(s) Allergy Type Date of Onset Reaction(s) Facility (2 sources) Amoxicillin-Pot Clavulanate Propensity to adverse reactions to drug 7 Other (See Comments) [facility] Phone: (3 sources) Bismuth-Containin g Compounds Propensity to adverse reactions to drug 6 Hives [facility] Phone: (1 source) bismuth subsalicylate Drug Allergy 8 [facility] Rep[facility] (5 sources) bismuth subsalicylate Drug Allergy 1 hives, Other (See Comments) [facility] Medications Current Medications Medication Drug Class(es) Dates [...] 3 12/17/2019 Active 21 day ethinyl estradiol 0.508283 mg/hr / etonogestrel 0.005 mg/hr vaginal system (7 sources) Progestin, Estrogen Start: 06-13-2018 NUVARING 0.12-0.015 MG/24HR vaginal ring NuvaRing Active fluocinonide 0.5 mg/ml topical cream (2 sources) Corticosteroid Start: 07-24-2019 fluocinonide (LIDEX) 0.05 % cream Apply topically 2 times daily. 60 g 1 07/24/2019 Active hydrocortisone 10 mg/ml / neomycin 3.5 mg/ml / polymyxin b 11997 unt/ml otic suspension (1 source) Aminoglycoside Antibacterial, Polymyxin-class Antibacterial, Corticosteroid Start: 04-12-2022 Ulhcmwog-Iugrrkgdd-YH 3.5-68749-7 3 drops left ear Three times a [...] Active Start: 11-01-2017 take 1 capsule by [facility] once daily omeprazole (PRILOSEC) 40 MG delayed [...] seconds; D AP 83 cGy cm2 PROCEDURE: OCCUPATIONAL HEALTH SPECIALIST: Gaudencio Chávez MD Informed consent was obtained [...] Gaudencio Chávez MD 02/12/22 Final result Normal [facility] [place] IR INJ ARTHROGRAM HIP LEFTon 02-12-2022 Successful fluoroscopic-guided left hip arthrogram. Patient was transferred to MRI for further imaging. [facility] RIS CONSOLIDATED EXAMINATION: FLUOROSCOPIC GUIDED LEFT HIP ARTHROGRAM, 02/12/2022 8:45 am COMPARISON: None. HISTORY: ORDERING SYSTEM PROVIDED HISTORY: Tear of left acetabular labrum, initial encounter TECHNOLOGIST PROVIDED HISTORY: Is the patient ?->No FLUOROSCOPY DOSE AND TYPE OR TIME AND EXPOSURES: 54 seconds; D AP 83 cGy cm2 PROCEDURE: OCCUPATIONAL HEALTH SPECIALIST: Gaudencio Chávez MD Informed consent was obtained [...] is sent for subsequent MRI. EBL: None [facility] Gaudencio Chávez MD - 02/12/2022 EXAMINATION: FLUOROSCOPIC GUIDED LEFT HIP ARTHROGRAM, 02/12/2022 8:45 am COMPARISON: None. HISTORY: ORDERING SYSTEM PROVIDED HISTORY: Tear of left acetabular labrum, initial encounter TECHNOLOGIST PROVIDED HISTORY: Is the patient ?->No FLUOROSCOPY DOSE AND TYPE OR TIME AND EXPOSURES: 54 seconds; D AP 83 cGy cm2 PROCEDURE: OCCUPATIONAL HEALTH SPECIALIST: Gaudencio Chávez MD Informed consent was obtained [...] was transferred to MRI for further imaging. [employer] Phone: Radiology Study observation (narrative) [facility] Phone: IR INJ ARTHROGRAM HIP LEFTOr dered By: Gaudencio Chávez on 02-12-2022 [employer] Phone: MRI HIP LEFT W CONTRASTon MRI [...] Anthony Villanueva MD 02/12/22 Final result Normal [facility] SARS-CoV-2 (COVID-19) RNA NA A+probe Ql (Resp)on 11-11-2021 SARS-CoV-2 (COVID-19) RNA ANNABELLE+probe Ql (Unsp spec) Positive [facility] Other PAP ACOG PANEL 2: 21 to 29on 08-17-2021 . . Normal [facility] Comment on above: Performed By: #### [id number] #### [facility] [address] [address] [address] Cesar Young Age Gdln ACOG Testing - Normal [facility] Comment on above: Performed By: #### [id number] #### [facility] [address] [place], [place] [address] Dr. Cesar Young DIAGNOSIS: Comment [facility] Comment on above: Result Comment: NEGA TIVE FOR INTRAEPITHELIAL LESION OR MALIGNANCY. Performed By: #### [id number] #### [facility] [address] [address] [address] Cesar Young Methodology: Comment [facility] Comment on above: Result Comment: This liquid based ThinPrep(R) pap test was screened with the use of an image guided system. Performed By: #### 4 [id number] #### [facility] [address] [place] [address] Dr. Cesar Young Note: Comment Normal [facility] Comment on above: Result Comment: The Pap smear is a screening test designed to aid in the detection of premalignant and malignant conditions of the uterine cervix. It is not a diagnostic procedure and should not be used as the sole means of detecting cervical cancer. Both false-positive and false-negative reports do occur. . Performed By: #### [id number] #### [facility] [address] [place] [address] Dr. Cesar Young Performed by: Comment Normal [facility] Comment on above: Result Comment: Linda Taveras Machine Operator Hop Worker (ASCP) Performed By: #### 4 [id number] #### [facility] [address] [place] [address] Dr. Cesar Young Reflex Criteria: Comment Normal [facility] Comment on above: Result Comment: The HPV DNA reflex criteria were not met with this specimen result therefore, no HPV testing was performed. . Performed By: #### 4 [id number] #### [facility] [address] [place] [address] Dr. Cesar Young Specimen adequacy: Comment Normal [facility] Comment on above: Result Comment: Sati sfactory for evaluation. Endocervical and/or squamous metaplastic cells (endocervical component) are present. Performed By: #### 4 [id number] #### [facility] [address] [place] [address] Dr. Cesar Young XR hand LT min 3V*on 022 XR hand LT min 3V* [facility] Main [place] [address] [place] [address] XRay Report Signed Patient: Vianey Chen MR#: [id number] 0 : 1995 Acct:[id number] Age/Sex: 26 / F ADM Date: 08/17/21 Loc: XDUCLY Room: Type: [facility] Attending Dr: Juliethmark HERNANDEZ Copies to: DAVID Salmeron Ordering Provider: DAVID [...] Ailin Borrego M.D.08/17/2021 2:53 PM Dictation Location: [place] [address] Transcribed By: [facility] 08/17/21 145 Dictated By: Ailin Borrego MD 08/17/21 145 Signed By: 08/17/21 145 Normal [facility] XR hand LT min 3V* [facility] [employer] Other XR hand LT min 3V* [facility] [employer] Other XR hand LT min 3V* [address] [place] [address] [place] [employer] Other XR hand LT min 3V* [place] [address] [facility] Other XR hand LT min 3V* XRay Report [facility] Other XR hand LT min 3V* Signed [facility] Other XR hand LT min 3V* Patient: Vianey Chen MR#: [id number] [place] [employer] Other XR hand LT min 3V* 0 [facility] Other XR hand LT min 3V* : 1995 Acct:[id number] [facility] Other XR hand LT min 3V* Age/Sex: 26 / F ADM Date: 08/17/21 [facility] Other XR hand LT min 3V* Loc: XDUCLY Room: Type: REG CLI [facility] Other XR hand LT min 3V* Attending Dr: Julieth HERNANDEZ [facility] Other XR hand LT min 3V* Copies to: DAVID Salmeron [facility] Other XR hand LT min 3V* Ordering Provider: DAVID Salmeron [employer] Other XR hand LT min 3V* Date of Service: 08/17/21 [facility] [employer] Other XR hand LT min 3V* XR/XR hand LT min 3V*: Pain of left thumb [employer] Other XR hand LT min 3V* LEFT HAND - 4 views [employer] Other XR hand LT min 3V* CLINICAL DATA: Patient injured left hand yesterday and has bruising, pain and swelling over the [employer] Other XR hand LT min 3V* metacarpal phalangea l joint of the thumb and at the distal first metacarpal [employer] Other XR hand LT min 3V* COMPARISON: None [facility] Other XR hand LT min 3V* AP, lateral and oblique views were obtained along with a supplemental lateral view at the thumb. [employer] Other XR hand LT min 3V* There is no evidence of fracture or dislocation. There are no significant soft tissue [employer] Other XR hand LT min 3V* abnormalities. No rt [employer] Other XR hand LT min 3V* XR/XR hand LT min 3V* [employer] Other XR hand LT min 3V* IMPRESSION: [employer] Other XR hand LT min 3V* NO ACUTE BONY INJURY. [facility] Other XR hand LT min 3V* Impression dictated by: Ailin Borrego M.D.08/17/2021 2:53 PM [facility] Other XR hand LT min 3V* Dictation Location: [facility] [employer] Other XR hand LT min 3V* Transcribed By: GONZALO 08/17/21 1453 [employer] Other XR hand LT min 3V* Dictated By: Ailin Borrego MD 08/17/21 145 [employer] Other XR hand LT min 3V* Signed By: [facility] Other XR hand LT min 3V* 08/17/[address] [place] [address] [employer] Other PREG HCG QUALon 06-04-2021 , QUAL Negative Normal NEGATIVE [facility] Comment on above: Performed By: #### P REG #### [facility] [address] [address] [address] Cesar Young Covid-19 PCR (CVDTB)on SARS-CoV-2 (COVID-19) RNA ANNABELLE+probe Ql (Unsp spec) Not detected Normal NOT DETECTED [facility] Comment on above: Result Comment: This test is not yet approved or cleared by the [place] FDA. When there are no FDA-approved or cleared tests available, and other criteria are met, FDA can make tests available under an emergency access mechanism called an Emergency Use Authorization (EUA). The EUA for this test is supported by the [place] of Health and Human Service's (HHS's) declaration [...] consistent with SARS-CoV-2. Performed By: #### C [facility] #### [facility] [address] [place], [place] [address] Dr. Cesar Young [id number] 03-28-2021 SARS-CoV-2 (COVID-19) RNA ANNABELLE+probe Ql (Unsp spec) Normal [facility] Comment on above: Performed By: #### C OVID #### [facility] [address] [place] [address] Mft: Vijay Tinsley MD SARS-CoV-2 (COVID-19) RNA ANNABELLE+probe Ql (Unsp spec) Detected Abnormal NOTDET [facility] Comment on above: Result Comment: The specimen is POSITIVE for SARS-Cov-2, the novel coronavirus associated with COVID-19. Millie SARS-CoV-2 for use on the Millie 6800/8800 Systems is a real-time RT-PCR test intended [...] this assay. Fact sheet for Healthcare Providers: https://www.fda.gov/media/608660/download Fact sheet for Patients: https://www.fda.gov/media/155364/download METHODOLOGY: RT-PCR Results reported to the appropriate Health Department Performed By: #### C OVID #### [facility] [address] [place], [place] [id number] Mft: Vijay Tinsley MD [id number] 03-27-2021 SARS-CoV-2 (COVID-19) RNA ANNABELLE+probe Ql (Unsp spec) NOT REPORTED Normal [facility] Comment on above: Performed By: #### C OVID #### [facility] [address] [place] [address] Mft: Vijay Tinsley MD CBC Auto Differentialon 04-01 Basophils (Bld) [#/Vol] 0.10 10*3/uL [facility] Phone: Basophils/100 WBC (Bld) 1 % 0 - 2 % [facility] Phone: Differential Type NOT REPORTED [facility] Phone: Eosinophils (Bld) [#/Vol] 0.20 10*3/uL [facility] Phone: Eosinophils/100 WBC (Bld) 2 % 0 - 4 % [facility] Phone: Erythrocyte distribution width (RBC) [Ratio] 13.9 % 11.5 - 14.9 % [facility] Phone: Hematocrit (Bld) [Volume fraction] 43.1 % 36 - 46 % [facility] Phone: Hemoglobin (Bld) [Mass/Vol] 14.2 g/dL 12 - 16 g/dL [facility] Phone: Lymphocytes (Bld) [#/Vol] 2.10 10*3/uL [facility] Phone: Lymphocytes/100 WBC (Bld) 25 % 24 - 44 % [facility] Phone: MCH (RBC) [Entitic mass] 28.7 pg 26 - 34 pg [facility] Phone: MCHC (RBC) [Mass/Vol] 33.0 g/dL 31 - 37 g/dL [employer] Work Phone: MCV (RBC) [Entitic vol] 87.2 fL 80 - 100 fL [facility] Work Phone: Monocytes (Bld) [#/Vol] 0.60 10*3/uL [facility] Work Phone: Monocytes/100 WBC (Bld) 7 % 1 - 7 % [facility] Work Phone: Platelet mean volume (Bld) [Entitic vol] 7.7 fL 6 - 12 fL [facility] Work Phone: Platelets (Bld) [#/Vol] 359 10*3/uL [facility] Work Phone: Platelets (Bld) [#/Vol] NOT REPORTED [facility] [employer] Work Phone: RBC (Bld) [#/Vol] 4.94 10*6/uL 4 - 5.2 m/uL [facility] [employer] Work Phone: RBC morphology finding Nom (Bld) NOT REPORTED [facility] [employer] Work Phone: Segmented neutrophils/100 WBC (Bld) 65 % 36 - 66 % [facility] Work Phone: Segs Absolute 5.40 [facility] Work Phone: WBC (Bld) [#/Vol] NOT REPORTED per 100 WBC [facility] [employer] Work Phone: WBC (Bld) [#/Vol] 8.4 10*3/uL [facility] [employer] Work Phone: WBC Morphology NOT REPORTED [facility] Work Phone: Comprehensive Metabolic Pane dawit 04-24-2020 Albumin [Mass/Vol] 3.9 g/dL 3.5 - 5.2 g/dL [facility] [employer] Work Phone: Albumin/Globulin [Mass ratio] NOT REPORTED [facility] Phone: ALP [Catalytic activity/Vol] 59 U/L 35 - 104 U/L [employer] Work Phone: ALT [Catalytic activity/Vol] 19 U/L 5 - 33 U/L [facility] Phone: Anion gap [Moles/Vol] 10 mmol/L 9 - 17 mmol/L [facility] Phone: AST [Catalytic activity/Vol] 15 U/L <32 [facility] Phone: Bilirubin Ql (U) <0.15 Low 0.3 - 1.2 mg/dL [facility] Phone: Bun/Cre Ratio NOT REPORTED [employer] [facility] Work Phone: Calcium [Mass/Vol] 9.2 mg/dL 8.6 - 10. 4 mg/dL [facility] Phone: Chloride [Moles/Vol] 104 mmol/L 98 - 107 mmol/L [facility] Phone: CO2 [Moles/Vol] 25 mmol/L 20 - 31 mmol/L [facility] Phone: Creatinine [Mass/Vol] 0.68 mg/dL 0.5 - 0.9 mg/dL [facility] Phone: GFR >60 >60 mL/min [facility] Phone: GFR Non- >60 >60 mL/min [facility] Phone: GFR/1.73 sq M predicted among non-blacks MDRD (S/P/Bld) [Vol rate/Area] [facility] Phone: Comment on above: Average GFR for 20-2 9 years old: 116 mL/min/1.73sq m Chronic Kidney Disease: <60 mL/min/1.73sq m Kidney failure: <15 mL/min/1.73sq m eGFR calculated using average adult body mass. Additional eGFR calculator available at: http://www.[facility].Months Of Me/multiple_crcl_2012.htm GFR/1.73 sq M predicted among non-blacks MDRD (S/P/Bld) [Vol rate/Area] NOT REPORTED [facility] Phone: Glucose [Mass/Vol] 135 mg/dL High 70 - 99 mg/dL [facility] [employer] Phone: Interpretation and review of laboratory results Abnormal [facility] Phone: Potassium [Moles/Vol] 3.7 mmol/L 3.7 - 5.3 mmol/L [facility] Phone: Protein [Mass/Vol] 7.1 g/dL 6.4 - 8.3 g/dL [employer] Phone: Sodium [Moles/Vol] 139 mmol/L 135 - 144 mmol/L [facility] Phone: Urea nitrogen [Mass/Vol] 11 mg/dL 6 - 20 mg/dL [facility] Phone: Otheron 04-24-2020 Immature granulocytes (Bld) [#/Vol] NOT REPORTED 0 % [facility] Phone: US GALLBLADDER RUQon 04-24- 021 Unremarkable right upper quadrant ultrasound. [facility] Phone: EXAMINATION: RIGHT UPPER QUADRANT ULTRASOUND 04/24/2020 [...] No evidence of right upper quadrant ascites. [facility] Phone: Erick, Mhpn Incoming Radiant Results From [facility] - 04/24/2020 8:18 AM EST EXAMINATION: RIGHT [...] ascites. IMPRESSION: Unremarkable right upper quadrant ultrasound. [facility] Phone: Vital Signs Date Time Vital Sign Value Performing Clinician Facility 04-12-2022 10:30-0500 Body height 152.4 cm Julieth Agarwalmond Other [facility] Other 04-12-2022 10:30-0500 Body mass index (BMI) [Ratio] 41.59 kg/m2 Julieth Agarwalmond Other [facility] Other 04-12-2022 10:30-0500 Body temperature 98.5 [degF] Julieth Agarwalmond Other [facility] Other 04-12-2022 10:30-0500 Body weight 96.62 kg Julieth Agarwalmond Other [facility] Other 04-12-2022 10:30-0500 Diastolic blood pressure 87 mm[Hg] Julieth Agarwalmond Other [facility] Other 04-12-2022 10:30-0500 Respiratory rate 18 /min Julieth Agarwalmond Other [facility] Other 04-12-2022 10:30-0500 SaO2% (BldA) [Mass fraction] 98 % Julieth Winkler Other [facility] Other 04-12-2022 10:30-0500 Systolic blood pressure 141 mm[Hg] Julieth Winkler Other [facility] Other 11-30-2021 17:00-0400 Body height 152.4 cm Jammie Phelpsault Other [facility] Other 11-30-2021 17:00-0400 Body mass index (BMI) [Ratio] 39.06 kg/m2 Jammie Phelpsault Other [facility] Other 11-30-2021 17:00-0400 Body temperature 97.6 [degF] Jammie Mara Other [facility] Other 11-30-2021 17:00-0400 Body weight 90.72 kg Jammie Phelpsault Other [facility] Other 11-30-2021 17:00-0400 Diastolic blood pressure 84 mm[Hg] Jammie Mara Other [facility] Other 11-30-2021 17:00-0400 Respiratory rate 18 /min Jammie Mara Other [facility] Other 11-30-2021 17:00-0400 SaO2% (BldA) [Mass fraction] 99 % Jammie Mara Other [facility] Other 11-30-2021 17:00-0400 Systolic blood pressure 132 mm[Hg] Jammie Terry Other [facility] Other 11-11-2021 10:30-0400 Body height 152.4 cm Julieth Winkler Other [facility] Other 11-11-2021 10:30-0400 Body mass index (BMI) [Ratio] 37.1 kg/m2 Julieth Cathi Other [facility] Other 11-11-2021 10:30-0400 Body temperature 98.1 [degF] Julieth Cathi Other [facility] Other 11-11-2021 10:30-0400 Body weight 86.18 kg Julieth Cathi Other [facility] Other 11-11-2021 10:30-0400 Respiratory rate 18 /min Julieth Cathi Other [facility] Other 11-11-2021 10:30-0400 SaO2% (BldA) [Mass fraction] 99 % Julieth Cathi Other [facility] Other 08-17-2021 14:55-0400 Body height 152.4 cm Julieth Cathi Other [facility] Other 08-17-2021 14:55-0400 Body mass index (BMI) [Ratio] 39.84 kg/m2 Julieth Cathi Other [facility] Other 08-17-2021 14:55-0400 Body temperature 97.8 [degF] Julieth Cathi Other [facility] Other 08-17-2021 14:55-0400 Body weight 92.53 kg Julieth Agarwalmond Other [facility] Other 08-17-2021 14:55-0400 Diastolic blood pressure 74 mm[Hg] Julieth Cathi Other [facility] Other 08-17-2021 14:55-0400 Respiratory rate 18 /min Julieth Cathi Other [facility] Other 08-17-2021 14:55-0400 SaO2% (BldA) [Mass fraction] 99 % Julieth Cathi Other [facility] Other 08-17-2021 14:55-0400 Systolic blood pressure 134 mm[Hg] Julieth Cathi Other [facility] Other Encounters Encounter Date Encounter Type Care Provider Facility Start: 03-17-2023 End: 03-17-2023 ambulatory KATHY SHYANNE Not Available Start: 02-17-2023 End: 02-17-2023 ambulatory KATHY SHYANNE Not Available Start: 04-12-2022 End: 04-12-2022 ambulatory Julieth Cathi Other [facility] Other Start: 04-12-2022 Office outpatient vi sit 15 minutes Julieth Winkler [facility] Start: 02-12-2022 End: 02-15-2022 ambulatory ELICIA GONZALEZ [facility] [place] Start: 02-12-2022 End: 02-14-2022 Subsequent hospital visit by physician [facility] Nurse 1 [facility] Special Procedures Comment on above: Tear of left acetabu lar labrum, initial encounter Start: 11-30-2021 End: 11-30-2021 ambulatory Jammie Terry Other [facility] Other Start: 11-30-2021 Office outpatient vi sit 15 minutes Jammie Terry [facility] Start: 11-11-2021 End: 11-11-2021 ambulatory Julieth Winkler Other [facility] Other Start: 11-11-2021 Office outpatient vi sit 15 minutes Julieth Cathi [facility] Start: 08-17-2021 End: 08-17-2021 ambulatory Julieth Agarwalmond Other [facility] Other Start: 08-17-2021 Office outpatient vi sit 15 minutes Julieth Cathi [facility] Start: 08-12-2021 End: 08-12-[address] KATHY KIMBLE Facility:[facility] Start: 06-04-2021 Encounter for preprocedural laboratory examination [facility] Start: 06-04-2021 End: 06-04-2021 ambulatory [facility] Facility:[facility]1 Start: 06-02-2021 End: 06-03-2021 ambulatory [facility] Facility:[facility]1 Start: 06-02-2021 End: 06-03-2021 Encounter for preprocedural laboratory examination [facility] Facility: Start: 07-01-2020 End: 07-01-2020 Patient encounter procedure PHYSICIAN NO FAMILY -Ultrasound [facility] Start: 06-27-2020 End: 06-27-2020 Patient encounter procedure PHYSICIAN NO FAMILY -[facility] Start: 04-24-2020 End: 04-24-2020 Subsequent hospital visit by physician Mirna FERNÁNDEZ Laboratory Comment on above: RUQ pain Start: 04-24-2020 End: 04-26-2020 Subsequent hospital visit by physician [facility] 105 [facility] Ultrasound Comment on above: RUQ pain Start: 05-26-2015 End: 11-24-2017 Patient encounter status [facility] 104 [facility] Procedures Date Procedure Procedure Detail Performing Clinician Start: 02-12-2022 IR ARTHROGRAM HIP LEFT Elicia REEVES Work Phone: Start: 06-27-2020 Plain X-ray of left tibia and left fibula PHYSICIAN NO FAMILY Start: 06-27-2020 Radiologic examinati on of knee PHYSICIAN NO FAMILY Start: 04-24-2020 Blood count complete auto&auto difrntl wbc Camron Faye Alicea Work Phone: Start: 04-24-2020 Comprehensive metabo lic panel Camron Alicea Work Phone: Start: 04-24-2020 Us abdominal real ti me w/image limited Camron Faye [facility] Work Phone: Plan of Treatment Date Care Activity Detail Author Start: 03-27-2022 Depression Monitoring Depression Mon itoring [employer] Start: 09-28-2021 Influenza vaccination Flu vaccine (# 1) [employer] Start: 04-22-2021 Influenza vaccination Flu vaccine (# 1) [employer] Phone: Comment on above: Postponed from 10/29 (Patient Refused) Start: 04-22-2021 Pneumococcal 0-64 ye ars Vaccine (1 of 1 - PPSV23) Pneumococcal 0-64 years Vaccine (1 of 1 - PPSV23) [employer] Phone: Comment on above: Postponed from 02/19 (Patient Refused) Start: 04-07-2021 DTaP/Tdap/Td vaccine (7 - Td or Tdap) DTaP/Tdap/Td vaccine (7 - Td or Tdap) [employer] Start: 04-07-2021 DTaP/Tdap/Td vaccine (7 - Td) DTaP/Tdap/Td vaccine (7 - Td) [employer] Phone: Start: 07-01-2020 Duplex scan of lower limb veins US venous duplex LE [facility] Start: 02-20-2016 Screening for malign ant neoplasm of cervix [employer] Start: 2013 Hepatitis C screening Hepatitis C sc reen [employer] Start: 2010 HIV screening HIV screen [facility] [employer] [employer] Start: 2001 Pneumococcal 0-64 ye ars Vaccine (1 - PCV) Pneumococcal 0-64 years Vaccine (1 - PCV) [employer] Start: 1995 COVID-19 Vaccine (#1) COVID-19 Vacci ne (#1) [employer] Start: 1995 Hepatitis C screening Hepatitis C sc jyothi [employer] Phone: End: 02-12-2022 IR INJ ARTHROGRAM HIP LEFT IR INJ ARTHROGRAM HIP LEFT Imaging Routine Tear of left acetabular labrum, initial encounter 1 Occurrences starting 02/12/2022 until 02/12/2022 [employer] Phone: Comment on above: 1 Occurrences starti ng 02/12/2022 until 02/12/2022 Immunizations Immunization Date Immunization Notes Care Provider Parker rodrigues 04-07-2011 human papilloma viru s vaccine, quadrivalent [employer] Phone: 04-07-2011 tetanus toxoid, redu julia diphtheria toxoid, and acellular pertussis vaccine, adsorbed [employer] Phone: 02-04-2010 influenza virus vacc ine, unspecified formulation [employer] Phone: 12-23-2009 human papilloma viru s vaccine, quadrivalent [employer] Phone: 12-23-2009 meningococcal ACWY vaccine, unspecified formulation [employer] Phone: 04-23-2009 human papilloma viru s vaccine, quadrivalent [employer] Phone: 10-21-2000 diphtheria, tetanus toxoids and acellular pertussis vaccine [employer] Phone: 10-21-2000 measles, mumps and r ubella virus vaccine [employer] Phone: 07-25-1997 diphtheria, tetanus toxoids and acellular pertussis vaccine [employer] Phone: 07-25-1997 hepatitis B vaccine, adult dosage [facility] [employer] Work Phone: 07-25-1997 hepatitis B vaccine, unspecified formulation Mirna Bennett [facility] Work Phone: 07-25-1997 Hib, unspecified [facility] Work Phone: 07-19-1997 poliovirus vaccine, unspecified formulation Mirna Bennett [facility] Work Phone: 09-27-1996 diphtheria, tetanus toxoids and acellular pertussis vaccine Mirna [facility] Work Phone: 09-27-1996 Hib, unspecified Mirna Bennett [facility] Work Phone: 09-27-1996 measles, mumps and r ubella virus vaccine [facility] Work Phone: 09-27-1996 poliovirus vaccine, unspecified formulation Mirna [facility] Work Phone: 1995 diphtheria, tetanus toxoids and acellular pertussis vaccine Mirna [facility] Work Phone: 1995 Hib, unspecified Mirna Bennett [facility] Work Phone: 1995 poliovirus vaccine, unspecified formulation [facility] Work Phone: 1995 diphtheria, tetanus toxoids and acellular pertussis vaccine Mirna [facility] Work Phone: 1995 hepatitis B vaccine, adult dosage [facility] Work Phone: 1995 hepatitis B vaccine, unspecified formulation Mirna [facility] Work Phone: 1995 Hib, unspecified Mirna Bennett [facility] Work Phone: 1995 poliovirus vaccine, unspecified formulation Mirna [facility] Work Phone: 1995 hepatitis B vaccine, adult dosage [facility] Work Phone: 1995 hepatitis B vaccine, unspecified formulation [facility] Bennett [facility] Work Phone: Payers Date Payer Category Payer Unknown [id number] 2.16.84 [id number] 1995 Unknown [id number] 2.16.84 [id number] 1995 Unknown [id number] 2.16.84 [id number] 1995 Unknown [id number] 2.16.8 [id number] 1995 Unknown [id number] 2.16.8 [id number] 1995 Unknown [id number] 2.16.84 [id number] 1995 Unknown [id number] 1959 Unknown [id number] Self-pay Self Pay [id number] Unknown Self Pay [id number] Unknown Self Pay [id number] Social History Date Type Detail Facility Start: 04-22-2020 End: 12-16-2021 Tobacco smoking status NCIS Current every day smoker [facility] of tobacco use Cigarette Smoker [facility] [employer] Phone: Start: 04-22-2020 End: 12-16-2021 Cigarettes smoked current (pack per day) - Reported [facility] Work Phone: Start: 04-22-2020 End: 12-16-2021 Tobacco use and exposure Never used [employer] Phone: Start: 04-22-2020 End: 02-05-2022 Alcohol intake Current drinker of alcohol (finding) [employer] Phone: Start: 03-24-2015 Alcohol Comment occasional [employer] Work Phone: Start: 1995 Sex Assigned At Not on file [employer] Work Phone: Start: 1995 Sex Assigned At Female F [facility] Sex Assigned At Sex Assigned At Bir th [facility] Other Start: 02-03-2022 History SDOH Physica l Activity DPW 0 [facility]ON [employer] Phone: Start: 03-27-2021 History SDOH Financial 5 BON [employer] Work Phone: Start: 02-03-2022 History SDOH IPV Fear 2 B ON [employer] Phone: Start: 03-27-2021 History SDOH Food Worry 1 [facility] [employer] Phone: Start: 01-26-2022 End: 02-05-2022 Exposure to SARS-CoV-2 (event) Not sure [facility] [employer] Goals Date Patient Goal Desired Activity /State [...] left ear, unspecified type (ICD-10 - H60.502) [employer] Other History of Present illness Narrative 02-12-2022 Analia Sin RN - 02/12/2022 8:30 AM EST Note Date & Type Note Facility 02-12-2022 History of Presen t illness Narrative Patient tolerated left hip injections without distress. Dry dressing to site. Patient to MRI for further imaging. documented in this encounter [employer] Phone: Evaluation note 11-30-2021 Note Date & Type Note Facility 11-30-2021 Evaluation note Encounter Date Diagnosis Assessment Notes Nov, Tattoo reaction (ICD-10 - L92.3) Use medication as directed. complete all doses. Recommend unscented soap to [facility] [employer] Other Evaluation note 11-11-2021 Note Date & [...] no improvement in 2 to 3 days. [employer] Other Evaluation note 08-17-2021 Note Date & [...] days, Tendonitis home care material was printed [employer] Other Evaluation note Note Date & Type Note Facility Evaluation note No Assessments Information Avail able [facility] Evaluation note Note Date & Type Note Facility Evaluation note Diagnosis Tear of left acetabular labrum, initial encounter documented in this encounter [employer] Phone: History general Narrative - Reported Note Date & Type Note Facility History general Narrative - Reported Type Surgical History laparoscopy female Surgical History appendectomy Surgical History bronchoscopy [employer] Other History general Narrative - Reported Note Date & Type Note Facility History general Narrative - Reported Type Medical History Esophageal reflux Surgical History laparoscopy female Surgical History appendectomy Surgical History bronchoscopy [employer] Other Hospital Discharge instructions Attachments Note Date & Type Note Facility Hospital Discharge instructions The following attachments cannot be sent through Care Everywhere.Joint Injections (Uzbek)documented in this encounter [employer] Phone: Assessments Diagnosis RUQ pain Abdominal pain, right upper quadrant Diagnosis RUQ pain Abdominal pain, right upper quadrant Advance Directives No Advanced Directives Records FoundDocuments on File Type Date Recorded 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 ACP-Advance Directive ACP-Power of Pipe Layer Documents on File Type Date Recorded 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 ACP-Advance Directive ACP-Power of Pipe Layer Advance Directive Response Recorded Date/ Time Advance Directives No October 09, 2017 12:18pm Reason for Referral Status Reason Specialty Diagnoses / Procedures Referre d By Contact Referred To Contact Closed Radiology Diagnoses RUQ pain Procedures [place] [address] [facility] [place] [address] Specialty Diagnoses / Procedures Referred By Contac t Referred To Contact Radiology Diagnoses Tear of left acetabular labrum, initial encounter Procedures IR INJ [place] [address] [place] [address] Referral ID Status Reason Start Date Expiration Date Visits Re quested Visits Authorized [id number] Closed 02/12/2022 02/12/2023 1 1 Specialty Diagnoses / Procedures Referred By Contac t Referred To Contact Radiology Diagnoses Tear of left acetabular labrum, initial encounter S73.192A (ICD-10-CM) - Tear of left acetabular labrum, initial encounter Procedures IR INJ ARTHROGRAM HIP LEFT MD INJECTION HIP ARTHROGRAM [id number] - MD [place]JECTION [place] [address] [place] [address] Referral ID Status Reason Start Date Expiration Date Visits Re quested Visits Authorized [id number] Closed 02/05/2022 02/05/2023 1 1 Chief Complaint and Reason for Visit Chief Complaint Tenderness of left c sancho Summary Purpose Family History No Family History Records FoundNo Family History Records FoundNo Family History Records FoundNo Family History Records FoundNo Family History Records Found Additional Source Comments Reason for Visit (unrecogniz ed section and content) Status Reason Specialty Diagnoses / Procedures Referre d By Contact Referred To Contact Closed Radiology Diagnoses RUQ pain Procedures [place] [address] [place] [address] Specialty Diagnoses / Procedures Referred By Hiltonac t Referred To Contact Radiology Diagnoses Tear of left acetabular labrum, initial encounter S73.192A (ICD-10-CM) - Tear of left acetabular labrum, initial encounter Procedures IR INJ ARTHROGRAM HIP LEFT MD INJECTION HIP ARTHROGRAM [id number] - MD [place]JE[place] [address] [place] [address] Referral ID Status Reason Start Date Expiration Date Visits Re quested Visits Authorized [id number] Closed 02/05/2022 02/05/2023 1 1 INFORMATION SOURCE (unrecogn ized section and content) DATE CREATED AUTHOR 03/29/2021 [facility] DATE CREATED AUTHOR AUTHOR'S ORGANIZ ATION 08/17/2021 [facility] DATE CREATED AUTHOR AUTHOR'S ORGANIZ ATION 08/18/2021 [facility] DATE CREATED AUTHOR AUTHOR'S ORGANIZ ATION 02/18/2022 [facility] DATE CREATED AUTHOR AUTHOR'S ORGANIZ ATION 03/18/2023 [facility] Care Teams (unrecognized sec tion and content) [employer] Developer Relationship Specialty [place] [address] [facility] [place] [address] PCP - General Family Medicine 03/11/15 FOR [...] BE BASED ON THE PRIMARY CLINICAL RECORDS. [employer] provides no warranty or guarantee of the accuracy or completeness of information in this document.
[2023-04-19 14:09] LABS: Age Gdln ACOG Testing Note (.); IGP, rfx Aptima HPV ASCU Note (.)
== END 2023-04-14 21:39 | disposition home or self-care (01) ==
LOC: LAB 21:38
PROVIDERS: Visit Provider Obstetrics & Gynecology
DX: Z01.419 Encounter for gynecological examination (general) (routine) without abnormal findings (principal)
CPT/HCPCS: G0145

== ENCOUNTER 2023-05-12 09:16 | Outpatient (OUT) | payer BC, SELFPAY ==
--- NOTE | 2023-05-12 09:17 | US_ITS ---
[address] [address] Patient Name: DARRIUS VERGARA MRN: [id number] date: 1995 Sex: F Assigned Patient Location: [facility] Current Patient Location: [facility] Accession/Order Number: [id number] Exam Date: 05/12/2023 09:18 Report Date: 05/12/2023 11:05 At the request of: KATHY KIMBLE Procedure: US OB anatomy EXAMINATION: US OB anatomy, US OB cervical length HISTORY: anatomic survey Z36.89 COMPARISON: No relevant comparison available. TECHNIQUE: Transabdominal sonographic examination was performed for obstetrical and evaluation. FINDINGS: Number: 1 Heart Rate: 141.0 bpm H.B. /min Amniotic Fluid Volume: Subjectively normal Placental Location: Posterior with lower margin 3.6 cm from os. Cervix Length: 2.6 cm, closed. ANATOMY: Normal Structures -cerebellum, choroid plexus, cisterna magna, lateral cerebral ventricles, orbits, midline falx, hard palate, stomach, kidneys, bladder, umbilical cord insertion into abdomen, three-vessel cord, cervical spine, thoracic spine, lumbar spine, sacral spine, right upper extremity, left upper extremity, right lower extremity, left lower extremity. SUBOPTIMALLY SEEN: Four-chamber heart and cardiac outflow tracts, nasal bones, feet and ankles. ABNORMALITIES: None BIOMETRY: BPD: 4.8 cm 20 weeks 4 days ; 53% HC: 18.2 cm 20 weeks 4 days; 49% AC: 15.6 cm 20 weeks 5 days; 55% FL: 3.2 cm 19 weeks 6 days; 24% EFW:350.2 grams; 43% FL/AC: 20.4 FL/BPD: 66.3 HC/AC: 1.2 GESTATIONAL AGE: Age by EDC: 20 weeks 3 days LASHELL by EDC: 09/26/2023 Age by current US: 20 weeks 3 days LASHELL by current US: 09/26/2023 US/US OB anatomy IMPRESSION: 1. Single live intrauterine with growth detailed above. 2. Short cervix 2.6 cm in length. 3. Inadequate evaluation of the four-chamber heart, cardiac outflow tracts, nasal bones, and the feet and ankles due to patient body habitus and position. Ankles were crossed during entire time of the study; clubfoot cannot be excluded. Electronically authenticated by: CR MORENO Date: 05/12/2023 11:05
--- NOTE | 2023-05-12 09:18 | US_ITS ---
[address] [address] Patient Name: DARRIUS VERGARA MRN: [id number] date: 1995 Sex: F Assigned Patient Location: [facility] Current Patient Location: [facility] Accession/Order Number: [id number] Exam Date: 05/12/2023 09:18 Report Date: 05/12/2023 11:05 At the request of: KATHY KIMBLE Procedure: US OB cervical length EXAMINATION: US OB anatomy, US OB cervical length HISTORY: anatomic survey Z36.89 COMPARISON: No relevant comparison available. TECHNIQUE: Transabdominal sonographic examination was performed for obstetrical and evaluation. FINDINGS: Number: 1 Heart Rate: 141.0 bpm H.B. /min Amniotic Fluid Volume: Subjectively normal Placental Location: Posterior with lower margin 3.6 cm from os. Cervix Length: 2.6 cm, closed. ANATOMY: Normal Structures -cerebellum, choroid plexus, cisterna magna, lateral cerebral ventricles, orbits, midline falx, hard palate, stomach, kidneys, bladder, umbilical cord insertion into abdomen, three-vessel cord, cervical spine, thoracic spine, lumbar spine, sacral spine, right upper extremity, left upper extremity, right lower extremity, left lower extremity. SUBOPTIMALLY SEEN: Four-chamber heart and cardiac outflow tracts, nasal bones, feet and ankles. ABNORMALITIES: None BIOMETRY: BPD: 4.8 cm 20 weeks 4 days ; 53% HC: 18.2 cm 20 weeks 4 days; 49% AC: 15.6 cm 20 weeks 5 days; 55% FL: 3.2 cm 19 weeks 6 days; 24% EFW:350.2 grams; 43% FL/AC: 20.4 FL/BPD: 66.3 HC/AC: 1.2 GESTATIONAL AGE: Age by EDC: 20 weeks 3 days LASHELL by EDC: 09/26/2023 Age by current US: 20 weeks 3 days LASHELL by current US: 09/26/2023 US/US OB cervical length IMPRESSION: 1. Single live intrauterine with growth detailed above. 2. Short cervix 2.6 cm in length. 3. Inadequate evaluation of the four-chamber heart, cardiac outflow tracts, nasal bones, and the feet and ankles due to patient body habitus and position. Ankles were crossed during entire time of the study; clubfoot cannot be excluded. Electronically authenticated by: CR MORENO Date: 05/12/2023 11:05
--- OUTSIDE RECORDS SUMMARY | 2023-05-12 09:25 | XMS_ITS | CCD ---
Author Name Unknown Address [address] [place] [address] Organization [facility] Care Team Providers Care Jet Blade Polisher Name Role Phone Mirna Bennett Primary Care Provider NO FAMILY, PHYSICIAN Primary Care Provider Unava Jammie Levy Attending Provider [phone] Mirna Bennett Primary Care Provider SAMSA, ANA Admitting Unavailable SAMSA ANA Attending Unavailable SAMSA ANA Consulting Unavailable SAMSA ANA Admitting Unavailable SAMSA ANA Attending Unavailable SAMSA ANA Consulting Unavailable AGUBOSIM, KELSEY Consulting Unavailable RAAD, YARITZA Consulting Unavailable DR KATHY PERRY Admitting Unavailable DR KATHY PERRY Attending Unavailable DR KATHY PERRY Consulting Unavailable Julieth Winkler Unavailable Jammie Terry Unavailable Mirna Bennett MD Primary Care Provider ELICIA GONZALEZ Referring Unavailable MIRNA BENNETT Primary Care Unavailable ELICIA GONZALEZ Referring Unavailable MIRNA BENNETT Primary Care Unavailable Unavailable Primary Care Provider UnavailKATHY Stapleton Attending Unavailable KATHY PERRY Attending Unavailable Allergies Allergy Classification Reported Allergen(s) Allergy Type Date of Onset Reaction(s) Facility (2 sources) Amoxicillin-Pot Clavulanate Propensity to adverse reactions to drug 11-17-19 17 Other (See Comments) [facility] Phone: (3 sources) Bismuth-Containin g Compounds Propensity to adverse reactions to drug 03-24-19 16 Hives [facility] Phone: (1 source) bismuth subsalicylate Drug Allergy 10-10-19 18 [facility] (5 sources) bismuth subsalicylate Drug Allergy 12-03-19 21 hives, Other (See Comments) [facility] (2 sources) bismuth subsalicylate Drug Allergy 12-03-19 21 Hives [facility] Work Phone: (2 sources) Bismuth-Containin g Compounds Drug Intolerance 03-24-19 16 Hives [facility] Medications Current Medications Medication Drug Class(es) Dates [...] 3 12/17/2019 Active 21 day ethinyl estradiol 0.281039 mg/hr / etonogestrel 0.005 mg/hr vaginal system (7 sources) Progestin, Estrogen Start: 06-13-2018 NUVARING 0.12-0.015 MG/24HR vaginal ring NuvaRing Active fluocinonide 0.5 mg/ml topical cream (2 sources) Corticosteroid Start: 07-24-2019 fluocinonide (LIDEX) 0.05 % cream Apply topically 2 times daily. 60 g 1 07/24/2019 Active hydrocortisone 10 mg/ml / neomycin 3.5 mg/ml / polymyxin b 84311 unt/ml otic suspension (1 source) Aminoglycoside Antibacterial, Polymyxin-class Antibacterial, Corticosteroid Start: 04-12-2022 Nrlczuvf-Nlszxlwwh-ML 3.5-66366-4 3 drops left ear Three times a [...] Start: 11-01-2017 take 1 capsule by mo ut once daily omeprazole (PRILOSEC) 40 MG delayed release capsule TAKE 1 CAPSULE BY MOUTH DAILY 30 capsule 1 11/01/2017 Active Phentermine (1 source) Sympathomimetic Amine Anorectic Adipex-P Active Vit-Fe Fumarate-FA ( Plus/Iron) 27-1 MG tablet (2 sources) Start: 023 End: 024 take 1 tablet by mouth in the morning Vit-Fe Fumarate-FA ( Plus/Iron) 27-1 MG tablet Indications: Missed menses Take 1 tablet by mouth in the morning. 90 tablet 3 02/17/2023 02/17/2024 Active 0.25 mg, 0.5 mg dose 1.5 ml semaglutide 1.34 mg/ml pen injector (1 source) Ozempic (0.25 or 0.5 MG/DOSE) 2 MG/1.5ML Subcutaneous for 56 Days Active triamcinolone acetonide 1 mg/ml topical cream (2 sources) Corticosteroid Start: 019 triamcinolone (KENALOG) 0.1 % cream Indications: Bug [...] Chronic Immunizations and screening for infectious disease (7 sources) Encounter for screening for human papillomavirus (HPV); Translations: [Contact with and (suspected) exposure to other viral communicable diseases] Onset: 08-13-2021 Resolved: 11-11-2021 Episodic Joint disorders and dislocations; trauma-related (2 sources) Chondromalacia of patella; Translations: [Chondromalacia patellae, unspecified knee] Onset: 08-16-2022 08-16-2022 Chronic Other connective tissue disease (1 source) Trochanteric [...] BMI 33.0-33.9 ADULT] Onset: 06-09-2021 Chronic Other and delivery including normal (2 sources) Second trimester ; Translations: [Encounter for supervision of normal , unspecified, second trimester] 04-14-2023 Episodic Other screening for suspected conditions (not mental disorders or infectious disease) (8 sources) Encounter for screening for malignant neoplasm of cervix; Translations: [Patient encounter status] Onset: 08-12-2021 Episodic Other skin disorders (1 source) Foreign body granuloma of the skin and subcutaneous tissue Episodic Otitis media and related conditions (1 source) Otitis media, unspecified, left ear Episodic Sprains and strains (2 sources) Acetabular labrum tear; Translations: [Other sprain of left hip, initial encounter] Onset: 02-12-2022 Episodic Substance-related disorders (3 sources) Nicotine dependence, cigarettes, uncomplicated; Translations: [Smoker] Onset: 06-09-2021 08-16-2022 Chronic Unclassified (1 source) COUGH, UNSPECIFIED; Translations: [...] Test Name Value Interpretation Reference Range Facility Urinalysis macro (dipstick) panel (U)on 04-14-2023 Bilirubin, UA Negative Negative - 4(70) +++ mg/dL [facility] Blood, UA Negative Negative - 50 Bill/mcL [facility] Clarity, UA Clear [facility] re Color, UA Yellow [facility] Glucose, UA Negative Negative - 1999(110) ++++ mg/dL [facility] Interpretation and review of laboratory results Abnormal [facility] Ketones, UA Positive Negative - 160(16) ++++ mg/dL [facility] Comment on above: 40 mg Leukocytes, UA Negative Negative - 500+++ Simon/mcL [facility] Nitrite, UA Negative Negative - Positive [facility] pH, UA 7.0 5 - 9 [facility] Protein, UA Trace Negative - 1999(20) ++++ mg/dL [facility] Spec Grav, UA 1.025 1 - 1.03 [facility] Urobilinogen, UA 0.2 0.2 - 12 mg/dL [facility] IR INJ ARTHROGRAM HIP LEFTon 02-13-2022 IR INJ ARTHROGRAM HIP LEFT EXAMINATION: FLUOROSCOPIC GUIDED LEFT HIP ARTHROGRAM, 02/12/2022 8:45 am COMPARISON: None. HISTORY: ORDERING SYSTEM PROVIDED HISTORY: Tear of left acetabular labrum, initial encounter TECHNOLOGIST PROVIDED HISTORY: Is the patient ?->No FLUOROSCOPY DOSE AND TYPE OR TIME AND EXPOSURES: 54 seconds; D AP 83 cGy cm2 PROCEDURE: LIVE GAMES DEALER: Gaudencio Chávez MD Informed consent was obtained [...] Gaudencio Chávez MD 02/12/22 Final result Normal [facility] IR INJ ARTHROGRAM HIP LEFTon 02-12-2022 Successful fluoroscopic-guided left hip arthrogram. Patient was transferred to MRI for further imaging. [facility] RIS CONSOLIDATED EXAMINATION: FLUOROSCOPIC GUIDED LEFT HIP ARTHROGRAM, 02/12/2022 8:45 am COMPARISON: None. HISTORY: ORDERING SYSTEM PROVIDED HISTORY: Tear of left acetabular labrum, initial encounter TECHNOLOGIST PROVIDED HISTORY: Is the patient ?->No FLUOROSCOPY DOSE AND TYPE OR TIME AND EXPOSURES: 54 seconds; D AP 83 cGy cm2 PROCEDURE: LIVE GAMES DEALER: Gaudencio Chávez MD Informed consent was obtained [...] is sent for subsequent MRI. EBL: None [facility] Gaudencio Chávez MD - 02/12/2022 EXAMINATION: FLUOROSCOPIC GUIDED LEFT HIP ARTHROGRAM, 02/12/2022 8:45 am COMPARISON: None. HISTORY: ORDERING SYSTEM PROVIDED HISTORY: Tear of left acetabular labrum, initial encounter TECHNOLOGIST PROVIDED HISTORY: Is the patient ?->No FLUOROSCOPY DOSE AND TYPE OR TIME AND EXPOSURES: 54 seconds; D AP 83 cGy cm2 PROCEDURE: LIVE GAMES DEALER: Gaudencio Chávez MD Informed consent was obtained [...] was transferred to MRI for further imaging. [facility] Work Phone: Radiology Study observation (narrative) [employer] Phone: IR INJ ARTHROGRAM HIP LEFTOr dered By: Gaudencio Chávez on 02-12-2022 [facility] Work Phone: MRI HIP LEFT W CONTRASTon MRI [...] Anthony Villanueva MD 02/12/22 Final result Normal [facility] SARS-CoV-2 (COVID-19) RNA NA A+probe Ql (Resp)on 11-11-2021 SARS-CoV-2 (COVID-19) RNA ANNABELLE+probe Ql (Unsp spec) Positive [facility] Other PAP ACOG PANEL 2: 21 to 29on 08-17-2021 . . [facility] Comment on above: Performed By: #### [id number] #### [facility] [address] [address] [address] Cesar Young Age Gdln ACOG Testing - Normal [facility] Comment on above: Performed By: #### [id number] #### [facility] [address] [place], [place] [address] Dr. Cesar Young DIAGNOSIS: Comment [facility] Comment on above: Result Comment: NEGA TIVE FOR INTRAEPITHELIAL LESION OR MALIGNANCY. Performed By: #### [id number] #### [facility] [address] [address] [address] Cesar Young Methodology: Comment [facility] Comment on above: Result Comment: This liquid based ThinPrep(R) pap test was screened with the use of an image guided system. Performed By: #### [id number] #### [facility] [address] [place] [address] Dr. Cesar Young Note: Comment Normal [facility] Comment on above: Result Comment: The Pap smear is a screening test designed to aid in the detection of premalignant and malignant conditions of the uterine cervix. It is not a diagnostic procedure and should not be used as the sole means of detecting cervical cancer. Both false-positive and false-negative reports do occur. . Performed By: #### [id number] #### [facility] [address] [place] [address] Dr. Cesar Young Performed by: Comment Normal [facility] Comment on above: Result Comment: Linda Taveras Pcas (ASCP) Performed By: #### [id number] #### [facility] [address] [place] [address] Dr. Cesar Young Reflex Criteria: Comment Normal [facility] Comment on above: Result Comment: The HPV DNA reflex criteria were not met with this specimen result therefore, no HPV testing was performed. . Performed By: #### 4 [id number] #### [facility] [address] [place] [address] Dr. Cesar Young Specimen adequacy: Comment Normal [facility] Comment on above: Result Comment: Sati sfactory for evaluation. Endocervical and/or squamous metaplastic cells (endocervical component) are present. Performed By: #### [id number] #### [facility] [address] [place] [address] Dr. Cesar Young XR hand LT min 3V*on 022 XR hand LT min 3V* [facility] Main [place] [address] [place] [address] XRay Report Signed Patient: Vianey Chen MR#: [id number] 0 : 1995 Acct:[id number] Age/Sex: 26 / F ADM Date: 08/17/21 Loc: XDUCLY [facility] Dr: Julieth HERNANDEZ Copies to: DAVID Salmeron Ordering Provider: [...] Ailin Borrego M.D.08/17/2021 2:53 PM Dictation Location: [place] [address] Transcribed By: [facility] 08/17/21 1453 Dictated By: Ailin Borrego MD 08/17/21 145 Signed By: 08/17/21 145 Normal [facility] XR hand LT min 3V* [facility] [place] [employer] Other XR hand LT min 3V* [facility] [employer] Other XR hand LT min 3V* [address] [place] [address] [employer] Other XR hand LT min 3V* [place] [address] [facility] Other XR hand LT min 3V* XRay Report [facility] Other XR hand LT min 3V* Signed [facility] Other XR hand LT min 3V* Patient: Vianey Chen MR#: [id number] [employer] Other XR hand LT min 3V* 0 [facility] Other XR hand LT min 3V* : 1995 Acct:[id number] [facility] Other XR hand LT min 3V* Age/Sex: 26 / F ADM Date: 08/17/21 [facility] Other XR hand LT min 3V* Loc: XDUCLY Room: Type: REG CLI [facility] Other XR hand LT min 3V* Attending Dr: Julieth HERNANDEZ [facility] Other XR hand LT min 3V* Copies to: DAVID Salmeron [facility] Other XR hand LT min 3V* Ordering Provider: DAVID Salmeron [facility] Other XR hand LT min 3V* Date of Service: 08/17/21 [facility] Other XR hand LT min 3V* XR/XR hand LT min 3V*: Pain of left thumb [facility] Other XR hand LT min 3V* LEFT HAND - 4 views [facility] Other XR hand LT min 3V* CLINICAL DATA: Patient injured left hand yesterday and has bruising, pain and swelling over the [facility] Other XR hand LT min 3V* metacarpal phalangea l joint of the thumb and at the distal first metacarpal [facility] Other XR hand LT min 3V* COMPARISON: None [facility] Other XR hand LT min 3V* AP, lateral and oblique views were obtained along with a supplemental lateral view at the thumb. [facility] Other XR hand LT min 3V* There is no evidence of fracture or dislocation. There are no significant soft tissue [facility] Other XR hand LT min 3V* abnormalities. No rt [employer] Other XR hand LT min 3V* XR/XR hand LT min 3V* [facility] Other XR hand LT min 3V* IMPRESSION: [facility] Other XR hand LT min 3V* NO ACUTE BONY INJURY. [facility] Other XR hand LT min 3V* Impression dictated by: Ailin Borrego M.D.08/17/2021 2:53 PM [facility] Other XR hand LT min 3V* Dictation Location: [facility] Other XR hand LT min 3V* Transcribed By: GONZALO 08/17/21 [facility] Other XR hand LT min 3V* Dictated By: Ailin Borrego MD 08/17/21 [facility] Other XR hand LT min 3V* Signed By: [facility] Other XR hand LT min 3V* 08/17/[address] [place] [address] [employer] Other PREG HCG QUALon 06-04-2021 , QUAL Negative Normal NEGATIVE [facility] Comment on above: Performed By: #### P REG #### [facility] [address] [address] [address] Cesar Young Covid-19 PCR (CVDTB)on SARS-CoV-2 (COVID-19) RNA ANNABELLE+probe Ql (Unsp spec) Not detected Normal NOT DETECTED [facility] Comment on above: Result Comment: This test is not yet approved or cleared by the [place] FDA. When there are no FDA-approved or cleared tests available, and other criteria are met, FDA can make tests available under an emergency access mechanism called an Emergency Use Authorization (EUA). The EUA for this test is supported by the [place] of Health and Human Service's (HHS's) declaration [...] consistent with SARS-CoV-2. Performed By: #### [facility] #### [facility] [address] [place], [place] [address] Dr. Cesar Young [id number] 03-28-2021 SARS-CoV-2 (COVID-19) RNA ANNABELLE+probe Ql (Unsp spec) Normal [facility] Comment on above: Performed By: #### C OVID #### [facility] [address] [place] [address] Jeweler Apprentice: Vijay Tinsley MD SARS-CoV-2 (COVID-19) RNA ANNABELLE+probe Ql (Unsp spec) Detected Abnormal NOTDET [facility] Comment on above: Result Comment: The specimen [...] this assay. Fact sheet for Healthcare Providers: https://www.fda.gov/media/481281/download Fact sheet for Patients: https://www.fda.gov/media/068387/download METHODOLOGY: RT-PCR Results reported to the appropriate Health Department Performed By: #### C OVID #### [facility] [address] [place], [place] [id number] Jeweler Apprentice: Vijay Tinsley MD [id number] 03-27-2021 SARS-CoV-2 (COVID-19) RNA ANNABELLE+probe Ql (Unsp spec) NOT REPORTED Normal [facility] Comment on above: Performed By: #### C OVID #### [facility] [address] [place] [address] Jeweler Apprentice: Vijay Tinsley MD CBC Auto Differentialon 04-01 Basophils (Bld) [#/Vol] 0.10 10*3/uL [facility] Phone: Basophils/100 WBC (Bld) 1 % 0 - 2 % [facility] Phone: Differential Type NOT REPORTED [facility] Phone: Eosinophils (Bld) [#/Vol] 0.20 10*3/uL [facility] Phone: Eosinophils/100 WBC (Bld) 2 % 0 - 4 % [facility] Phone: Erythrocyte distribution width (RBC) [Ratio] 13.9 % 11.5 - 14.9 % [facility] Phone: Hematocrit (Bld) [Volume fraction] 43.1 % 36 - 46 % [facility] Phone: Hemoglobin (Bld) [Mass/Vol] 14.2 g/dL 12 - 16 g/dL [facility] Phone: Lymphocytes (Bld) [#/Vol] 2.10 10*3/uL [facility] Phone: Lymphocytes/100 WBC (Bld) 25 % 24 - 44 % [facility] Phone: MCH (RBC) [Entitic mass] 28.7 pg 26 - 34 pg [facility] Phone: MCHC (RBC) [Mass/Vol] 33.0 g/dL 31 - 37 g/dL [facility] Work Phone: MCV (RBC) [Entitic vol] 87.2 fL 80 - 100 fL [facility] Phone: Monocytes (Bld) [#/Vol] 0.60 10*3/uL [facility] [employer] Work Phone: Monocytes/100 WBC (Bld) 7 % 1 - 7 % [facility] Phone: Platelet mean volume (Bld) [Entitic vol] 7.7 fL 6 - 12 fL [facility] Phone: Platelets (Bld) [#/Vol] 359 10*3/uL [facility] [employer] Work Phone: Platelets (Bld) [#/Vol] NOT REPORTED [facility] Work Phone: RBC (Bld) [#/Vol] 4.94 10*6/uL 4 - 5.2 m/uL [facility] [employer] Work Phone: RBC morphology finding Nom (Bld) NOT REPORTED [facility] Work Phone: Segmented neutrophils/100 WBC (Bld) 65 % 36 - 66 % [facility] [employer] Work Phone: Segs Absolute 5.40 [facility] Work Phone: WBC (Bld) [#/Vol] NOT REPORTED per 100 WBC [facility] [employer] Work Phone: WBC (Bld) [#/Vol] 8.4 10*3/uL [facility] [employer] Work Phone: WBC Morphology NOT REPORTED [facility] Work Phone: Comprehensive Metabolic Pane dawit 04-24-2020 Albumin [Mass/Vol] 3.9 g/dL 3.5 - 5.2 g/dL [facility] [employer] Work Phone: Albumin/Globulin [Mass ratio] NOT REPORTED [facility] Phone: ALP [Catalytic activity/Vol] 59 U/L 35 - 104 U/L [facility] Work Phone: ALT [Catalytic activity/Vol] 19 U/L 5 - 33 U/L [facility] Phone: Anion gap [Moles/Vol] 10 mmol/L 9 - 17 mmol/L [facility] Phone: AST [Catalytic activity/Vol] 15 U/L <32 [facility] Phone: Bilirubin Ql (U) <0.15 Low 0.3 - 1.2 mg/dL [facility] Phone: Bun/Cre Ratio NOT REPORTED [employer] [facility] Work Phone: Calcium [Mass/Vol] 9.2 mg/dL 8.6 - 10. 4 mg/dL [facility] Phone: Chloride [Moles/Vol] 104 mmol/L 98 - 107 mmol/L [facility] Phone: CO2 [Moles/Vol] 25 mmol/L 20 - 31 mmol/L [facility] Phone: Creatinine [Mass/Vol] 0.68 mg/dL 0.5 - 0.9 mg/dL [facility] Phone: GFR >60 >60 mL/min [facility] Phone: GFR Non- >60 >60 mL/min [facility] Phone: GFR/1.73 sq M predicted among non-blacks MDRD (S/P/Bld) [Vol rate/Area] [facility] Phone: Comment on above: Average GFR for 20-2 9 years old: 116 mL/min/1.73sq m Chronic Kidney Disease: <60 mL/min/1.73sq m Kidney failure: <15 mL/min/1.73sq m eGFR calculated using average adult body mass. Additional eGFR calculator available at: http://www.[employer].Cook Taste Eat/multiple_crcl_2012.htm GFR/1.73 sq M predicted among non-blacks MDRD (S/P/Bld) [Vol rate/Area] NOT REPORTED [facility] Phone: Glucose [Mass/Vol] 135 mg/dL High 70 - 99 mg/dL [facility] [employer] Phone: Interpretation and review of laboratory results Abnormal [facility] Phone: Potassium [Moles/Vol] 3.7 mmol/L 3.7 - 5.3 mmol/L [facility] Phone: Protein [Mass/Vol] 7.1 g/dL 6.4 - 8.3 g/dL [facility] [employer] Phone: Sodium [Moles/Vol] 139 mmol/L 135 - 144 mmol/L [facility] Phone: Urea nitrogen [Mass/Vol] 11 mg/dL 6 - 20 mg/dL [facility] Phone: Otheron 04-24-2020 Immature granulocytes (Bld) [#/Vol] NOT REPORTED 0 % [facility] Phone: US GALLBLADDER RUQon 04-24- 021 Unremarkable right upper quadrant ultrasound. [facility] Phone: EXAMINATION: RIGHT UPPER QUADRANT ULTRASOUND 04/24/2020 [...] No evidence of right upper quadrant ascites. [facility] Phone: Erick, [facility] Incoming Radiant Results From [employer] [facility] - 04/24/2020 8:18 AM EST EXAMINATION: RIGHT [...] ascites. IMPRESSION: Unremarkable right upper quadrant ultrasound. [facility] Phone: Vital Signs Date Time Vital Sign Value Performing Clinician Facility 04-14-2023 10:54-0500 Body mass index (BMI) [Ratio] 44.14 kg/m2 [facility] Phone: [facility] 04-14-2023 10:54-0500 Body weight 102.51 kg [facility] Phone: [facility] 04-14-2023 10:54-0500 Diastolic blood pressure 70 mm[Hg] [facility] Phone: [facility] 04-14-2023 10:54-0500 Systolic blood pressure 120 mm[Hg] [facility] Phone: [facility] 04-12-2022 10:30-0500 Body height 152.4 cm Julieth Winkler Other [facility] Other 04-12-2022 10:30-0500 Body mass index (BMI) [Ratio] 41.59 kg/m2 Jluieth Winkler Other [facility] Other 04-12-2022 10:30-0500 Body temperature 98.5 [degF] Julieth Agarwalmond Other [facility] Other 04-12-2022 10:30-0500 Body weight 96.62 kg Julieth Winkler Other [facility] Other 04-12-2022 10:30-0500 Diastolic blood pressure 87 mm[Hg] Julieth Cathi Other [facility] Other 04-12-2022 10:30-0500 Respiratory rate 18 /min Julieth Agarwalmond Other [facility] Other 04-12-2022 10:30-0500 SaO2% (BldA) [Mass fraction] 98 % Julieth Winkler Other [facility] Other 04-12-2022 10:30-0500 Systolic blood pressure 141 mm[Hg] Julieth Winkler Other [facility] Other 11-30-2021 17:00-0400 Body height 152.4 cm Jammie Phelpsault Other [facility] Other 11-30-2021 17:00-0400 Body mass index (BMI) [Ratio] 39.06 kg/m2 Jammie Mara Other [facility] Other 11-30-2021 17:00-0400 Body temperature 97.6 [degF] Jammie Terry Other [facility] Other 11-30-2021 17:00-0400 Body weight 90.72 kg Jammie Mara Other [facility] Other 11-30-2021 17:00-0400 Diastolic blood pressure 84 mm[Hg] Jammie Terry Other [facility] Other 11-30-2021 17:00-0400 Respiratory rate 18 /min Jammie Terry Other [facility] Other 11-30-2021 17:00-0400 SaO2% (BldA) [Mass fraction] 99 % Jammie Terry Other [facility] Other 11-30-2021 17:00-0400 Systolic blood pressure 132 mm[Hg] Jammie Terry Other [facility] Other 11-11-2021 10:30-0400 Body height 152.4 cm Julieth Agarwalmond Other [facility] Other 11-11-2021 10:30-0400 Body mass index (BMI) [Ratio] 37.1 kg/m2 Julieth Agarwalmond Other [facility] Other 11-11-2021 10:30-0400 Body temperature 98.1 [degF] Julieth Agarwalmond Other [facility] Other 11-11-2021 10:30-0400 Body weight 86.18 kg Julieth Agarwalmond Other [facility] Other 11-11-2021 10:30-0400 Respiratory rate 18 /min Julieth Agarwalmond Other [facility] Other 11-11-2021 10:30-0400 SaO2% (BldA) [Mass fraction] 99 % Julieth Cathi Other [facility] Other 08-17-2021 14:55-0400 Body height 152.4 cm Julieth Winkler Other [facility] Other 08-17-2021 14:55-0400 Body mass index (BMI) [Ratio] 39.84 kg/m2 Julieth Winkler Other [facility] Other 08-17-2021 14:55-0400 Body temperature 97.8 [degF] Julieth Winkler Other [facility] Other 08-17-2021 14:55-0400 Body weight 92.53 kg Julieth Agarwalmond Other [facility] Other 08-17-2021 14:55-0400 Diastolic blood pressure 74 mm[Hg] Julieth Agarwalmond Other [facility] Other 08-17-2021 14:55-0400 Respiratory rate 18 /min Julieth Winkler Other [facility] Other 08-17-2021 14:55-0400 SaO2% (BldA) [Mass fraction] 99 % Julieth Winkler Other [facility] Other 08-17-2021 14:55-0400 Systolic blood pressure 134 mm[Hg] Julieth Cathi Other [facility] Other Encounters Encounter Date Encounter Type Care Provider Facility Start: 04-14-2023 End: 04-14-2023 ambulatory KATHY PERRY Not Available Start: 04-14-2023 End: 04-14-2023 Patient encounter procedure Kathy Perry DO Work Phone: [facility] Start: 04-14-2023 End: 04-14-2023 Periodic preventive med est patient 18-39 yrs Kathy Perry DO Work Phone: [facility] Comment on above: Well woman exam with routine gynecological exam; Exposure to STD; Encounter for anatomic survey; Need for maternal serum alpha-protein (MSAFP) screening; Second trimester Start: 03-17-2023 End: 03-17-2023 ambulatory KATHY PERRY Not Available Start: 02-17-2023 End: 02-17-2023 ambulatory KATHY SHYANNE Not Available Start: 04-12-2022 End: 04-12-2022 ambulatory Julieth Winkler Other [facility] Other Start: 04-12-2022 Office outpatient vi sit 15 minutes Julieth Cathi [facility] Start: 02-12-2022 End: 02-15-2022 ambulatory [facility] Start: 02-12-2022 End: 02-14-2022 Subsequent hospital visit by physician [facility] Nurse [facility] Special Procedures Comment on above: Tear of left acetabu lar labrum, initial encounter Start: 11-30-2021 End: 11-30-2021 ambulatory Jammie Terry Other [facility] Other Start: 11-30-2021 Office outpatient vi sit 15 minutes Jammie Terry [facility] Start: 11-11-2021 End: 11-11-2021 ambulatory Julieth Winkler Other [facility] Other Start: 11-11-2021 Office outpatient vi sit 15 minutes Julieth Cathi [facility] Start: 08-17-2021 End: 08-17-2021 ambulatory Julieth Winkler Other [facility] Other Start: 08-17-2021 Office outpatient vi sit 15 minutes Julieth Cathi [facility] Start: 08-12-2021 End: 06-15-[address] KATHY PERRY Facility:H1 Start: 06-04-2021 Encounter for preprocedural laboratory examination [facility] Start: 06-04-2021 End: 06-04-2021 ambulatory ANA [facility] Facility:H1 Start: 06-02-2021 End: 06-03-[address] [facility] Facility:H1 Start: 06-02-2021 End: 06-03-2021 Encounter for preprocedural laboratory examination ANA [facility] Facility: Start: 07-01-2020 End: 07-01-2020 Patient encounter procedure PHYSICIAN NO FAMILY -[facility] [place] Start: 06-27-2020 End: 06-27-2020 Patient encounter procedure [facility]YSICIAN [facility] Start: 04-24-2020 End: 04-24-2020 Subsequent hospital visit by physician Mirna FERNÁNDEZ Laboratory Comment on above: RUQ pain Start: 04-24-2020 End: 04-26-2020 Subsequent hospital visit by physician Ultrasound Rm [facility] Ultrasound Comment on above: RUQ pain Start: 05-26-2015 End: 11-24-2017 Patient encounter status [facility] Procedures Date Procedure Procedure Detail Performing Clinician Start: 04-14-2023 Urnls dip stick/tabl et rgnt non-auto w/o micrscp Kathy Perry DO Work Phone: Start: 02-12-2022 IR ARTHROGRAM HIP LEFT Elicia [...] Treatment Date Care Activity Detail Author Start: 04-14-2023 End: 05-13-2023 Alpha fetoprotein, maternal Alpha fetoprotein, maternal Lab Routine Need for maternal serum alpha-protein (MSAFP) screening Expected: 04/14/2023 (Approximate), Expires: 05/13/2023 [facility] Comment on above: Expected: 04/14/2023 (Approximate), Expires: 05/13/2023 Start: 04-14-2023 End: 04-14-2024 US for US OB ANATOMY SINGLE W US OB CERVICAL LENGTH Imaging Routine Encounter for anatomic survey Expected: 04/14/2023 (Approximate), Expires: 04/14/2024 [facility] Comment on above: Expected: 04/14/2023 (Approximate), Expires: 04/14/2024 Start: 03-27-2022 Depression Monitoring [facility] Start: 09-28-2021 Influenza vaccination Flu vaccine (# 1) [facility] [employer] Start: 04-22-2021 Influenza vaccination Flu vaccine (# 1) [employer] Phone: Comment on above: Postponed from 10/29 (Patient Refused) Start: 04-22-2021 Pneumococcal 0-64 ye ars Vaccine (1 of 1 - PPSV23) Pneumococcal 0-64 years Vaccine (1 of 1 - PPSV23) [employer] Phone: Comment on above: Postponed from 02/19 (Patient Refused) Start: 04-07-2021 DTaP/Tdap/Td vaccine (7 - Td or Tdap) DTaP/Tdap/Td vaccine (7 - Td or Tdap) [facility] Start: 04-07-2021 DTaP/Tdap/Td vaccine (7 - Td) DTaP/Tdap/Td vaccine (7 - Td) [employer] Phone: Start: 07-01-2020 Duplex scan of lower limb veins US venous duplex LE [facility] Start: 02-20-2016 Screening for malign ant neoplasm of cervix [facility] Start: 2013 Hepatitis C screening Hepatitis C sc reen [facility] Start: 2010 HIV screening HIV screen [facility] [employer] Start: 2001 Pneumococcal 0-64 ye ars Vaccine (1 - PCV) Pneumococcal 0-64 years Vaccine (1 - PCV) [facility] [employer] Start: 1995 COVID-19 Vaccine (#1) COVID-19 Vacci ne (#1) [facility] Start: 1995 Hepatitis C screening Hepatitis C ut jyothi [employer] Phone: CHLAMYDIA TRACHOMATI S (GENITO/STI) CHLAMYDIA TRACHOMATIS (GENITO/STI) Lab Routine Exposure to STD Ordered: 04/14/2023 [facility] Comment on above: Ordered: 04/14/2023 Cytology Cervical or vaginal smear or scraping study Pap Smear Pathology and Cytology Routine Well woman exam with routine gynecological exam Ordered: 04/14/2023 [facility] [employer] Work Phone: Comment on above: Ordered: 04/14/2023 End: 02-12-2022 IR INJ ARTHROGRAM HIP LEFT IR INJ ARTHROGRAM HIP LEFT Imaging Routine Tear of left acetabular labrum, initial encounter 1 Occurrences starting 02/12/2022 until 02/12/2022 [facility] [employer] Phone: Comment on above: 1 Occurrences starti ng 02/12/2022 until 02/12/2022 Neisseria gonorrhoea e DNA [Presence] in Unspecified specimen by ANNABELLE with probe detection Neisseria gonorrhea DNA probe, direct Lab Routine Exposure to STD Ordered: 04/14/2023 [facility] Comment on above: Ordered: 04/14/2023 SURESWAB(R) ADVANCED VAGINITIS PLUS, TMA SURESWAB(R) ADVANCED VAGINITIS PLUS, TMA Pathology and Cytology Routine Exposure to STD Ordered: 04/14/2023 [facility] Comment on above: Ordered: 04/14/2023 Immunizations Immunization Date Immunization Notes Care Provider Parker rodrigues 04-07-2011 human papilloma viru s vaccine, quadrivalent [facility] [employer] Phone: 04-07-2011 tetanus toxoid, redu julia diphtheria toxoid, and acellular pertussis vaccine, adsorbed [employer] Phone: 02-04-2010 influenza virus vacc ine, unspecified formulation [facility] Phone: 12-23-2009 human papilloma viru s vaccine, quadrivalent [facility] Phone: 12-23-2009 meningococcal ACWY vaccine, unspecified formulation [facility] Phone: 04-23-2009 human papilloma viru s vaccine, quadrivalent [facility] Work Phone: 10-21-2000 diphtheria, tetanus toxoids and acellular pertussis vaccine [facility] [employer] Phone: 10-21-2000 measles, mumps and r ubella virus vaccine [facility] Phone: 07-25-1997 diphtheria, tetanus toxoids and acellular pertussis vaccine [facility] Phone: 07-25-1997 hepatitis B vaccine, adult dosage [facility] Work Phone: 07-25-1997 hepatitis B vaccine, unspecified formulation [facility] Phone: 07-25-1997 Hib, unspecified [facility] Work Phone: 07-19-1997 poliovirus vaccine, unspecified formulation [facility] Phone: 09-27-1996 diphtheria, tetanus toxoids and acellular pertussis vaccine [facility] Phone: 09-27-1996 Hib, unspecified [facility] Work Phone: 09-27-1996 measles, mumps and r ubella virus vaccine [facility] Phone: 09-27-1996 poliovirus vaccine, unspecified formulation [facility] Phone: 1995 diphtheria, tetanus toxoids and acellular pertussis vaccine [employer] Phone: 1995 Hib, unspecified Mirna Canales [facility] Work Phone: 1995 poliovirus vaccine, unspecified formulation Mirna Bennett [employer] Phone: 1995 diphtheria, tetanus toxoids and acellular pertussis vaccine [employer] Phone: 1995 hepatitis B vaccine, adult dosage [facility] Phone: 1995 hepatitis B vaccine, unspecified formulation [employer] Phone: 1995 Hib, unspecified Mirna Canales [facility] Work Phone: 1995 poliovirus vaccine, unspecified formulation [employer] Phone: 1995 hepatitis B vaccine, adult dosage [facility] [employer] Phone: 1995 hepatitis B vaccine, unspecified formulation [employer] Phone: Payers Date Payer Category Payer Unknown BCBS BCBS [id number] 2022-Present [phone] [address] [place] [address] [id number] 1995 Unknown [id number] 1995 Unknown [id number] 1995 Unknown [id number] 1995 Unknown [id number] 1995 Unknown [id number] 1995 Unknown [id number] 1995 Unknown [id number] 1995 Unknown [id number] 1959 Unknown [id number] Self-pay Self Pay [id number] Unknown Self Pay [id number] Unknown Self Pay [id number] Social History Date Type Detail Facility Start: 02-28-2007 End: 08-14-2022 Tobacco smoking status ALIS Current every day smoker [facility]LELL[facility] [employer] Start: 02-28-2007 History of tobacco use Cigarette Smo ker [employer] Phone: Start: 04-22-2020 End: 08-14-2022 Cigarettes smoked current (pack per day) - Reported [employer] Phone: Start: 04-22-2020 End: 12-16-2021 Tobacco use and exposure Never used [employer] Phone: Start: 04-22-2020 End: 03-17-2023 Alcohol intake Current drinker of alcohol (finding) [employer] Phone: Start: 03-24-2015 Alcohol Comment occasional [employer] Work Phone: Start: 1995 Sex Assigned At Not on file [employer] Phone: Start: 1995 Sex Assigned At Female F [facility] Start: 08-14-2022 Sex Assigned At N [employer]y [employer] Other Start: 02-03-2022 History SDOH Physica l Activity DPW 0 [employer] Work Phone: Start: 03-27-2021 History SDOH Financial 5 [employer] Work Phone: Start: 02-03-2022 History SDOH IPV Fear 2 B [facility] [employer] Phone: Start: 03-27-2021 History SDOH Food Worry 1 [facility] [employer] Phone: Start: 01-26-2022 End: 02-05-2022 Exposure to SARS-CoV-2 (event) Not sure [employer] [employer] Start: 08-14-2022 Alcohol Comment 1-2 drinks les s than monthly in the past year [facility] Start: 01-03-2023 [facility] Go[facility] Date Patient Goal Desired Activity /State Clinical Notes 08-17-2021 to 04-14-2023 Lauren Crystal MA - 04/14/2023 10:20 AM EST Note Date & Type Note Facility 04-14-2023 History of Presen t illness Narrative Reason for Appointment: Patient ID: Vianey Vergara is a 28 y.o. female who presents for Routine Visit Patient presents today for Annual Exam and Return OB appointment. Pt is 16 weeks and 3 days. Current Medications: has a current medication list which includes the following prescription(s): plus/iron. 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 Smoker 08/16/2022 Resolved Ambulatory Problems Diagnosis Date Noted No Resolved Ambulatory Problems Past Medical History: Diagnosis Date GERD (gastroesophageal reflux disease) Respiratory obstruction-inhaled food Family History Problem Relation Name Age of Onset Hypotension Mother Social History Tobacco Use Smoking status: Every Day Types: Cigarettes Start date: 02/28/2007 Smokeless tobacco: Not on file Substance Use Topics Alcohol use: Yes Comment: 1-2 drinks less than monthly in the past year Drug use: Not on file Past Surgical History: Procedure Laterality Date APPENDECTOMY BRONCHOSCOPY PELVIC LAPAROSCOPY Allergies Allergen Reactions Bismuth Subsalicylate Hives Other Reaction(s): Other (See Comments) Bismuth-Containing Compounds Hives Review of Systems: Review of Systems All other systems reviewed and are negative. Objective Physical Exam Constitutional: Appearance: Normal appearance. She is well-developed. Genitourinary: Vulva normal. Cardiovascular: Rate and Rhythm: Normal rate and regular rhythm. Pulmonary: Effort: Pulmonary effort is normal. Breath sounds: Normal breath sounds. Abdominal: General: Bowel sounds are normal. There is no distension. Palpations: Abdomen is soft. Tenderness: There is no abdominal tenderness. There is no guarding or rebound. Musculoskeletal: General: No swelling. Normal range of motion. Right lower leg: No edema. Left lower leg: No edema. Neurological: Mental Status: She is alert and oriented to person, place, and time. Skin: General: Skin is warm and dry. Psychiatric: Mood and Affect: Mood normal. Behavior: Behavior normal. Vitals and nursing note reviewed. Exam conducted with a beauty culturist apprentice present. Vitals: Estimated body mass index is 44.14 kg/m as calculated from the following: Height as of 07/12/22: 5'. Weight as of this encounter: 226 lb. BP: 120/70 Patient's last menstrual period was 12/20/2022. Assessment/Plan Encounter Diagnoses Name Primary? Well woman exam with routine gynecological exam Exposure to STD Encounter for anatomic survey Need for maternal serum alpha-protein (MSAFP) screening Second trimester Pt is having her annual/cx done at this visit. Pt has no issues except round ligament pain. Pt was given her 20 week anatomy US to have done prior to her next visit in 4 weeks. Pt was also given her MSAFP order do have done at [facility]. Documented by Lauren Crystal MA on behalf of: Kathy Perry DO documented in this encounter [facility] 04-12-2022 Evaluation note Encounter Date Diagnosis Assessment [...] left ear, unspecified type (ICD-10 - H60.502) [employer] Other 12-16-2022 History of Present illness Narrative* Analia Sin RN - 02/12/2022 8:30 AM EST Patient tolerated left hip injections without distress. Dry dressing to site. Patient to MRI for further imaging. [facility] [employer] Phone: [phone] 472-565210-03-2022 Evaluation note* Encounter Date Diagnosis Assessment Notes Treatment Notes Treatment Clinical Notes Nov, Tattoo reaction (ICD-10 - L92.3) Use medication as directed. complete all doses. Recommend unscented soap to area [facility] Other 09-14-2022 Evaluation note* Encounter Date Diagnosis Assessment Notes Treatment Notes Treatment Clinical Notes Oct, Contact with and (suspected) exposure [...] no improvement in 2 to 3 days. [facility] Other 06-20-2022 Evaluation note* Encounter Date Diagnosis Assessment Notes Treatment Notes Treatment Clinical Notes Jul, Pain of left thumb (ICD-10 - M79.645) Jul, Thumb tendonitis (ICD-10 - M77.8) Jul, Other Wear the splint is much as possible. Take ibuprofen up to 600 mg up to 3 times a day with food as needed for pain and swelling. Follow-up with your family physician if no improvement in 5 to 7 days, Tendonitis home care material was printed [facility] Other Evaluation noteNo Assessments Information Available [facility] Diagnosis Tear of left acetabular labrum, initial encounter documented in this encounter [employer] Phone: evaluation note* Diagnosis Well woman exam with routine gynecological exam Routine gynecological examination Exposure to STD Encounter for anatomic survey Need for maternal serum alpha-protein (MSAFP) screening Second trimester state, incidental [facility] - Reported* Type Description Date Surgical History laparoscopy female Surgical History appendectomy Surgical History bronchoscopy [facility] Other History general Narrative - Reported* Type Description Date Medical History Esophageal reflux Surgical History laparoscopy female Surgical History appendectomy Surgical History bronchoscopy [facility] Other Hospital Discharge instructions* Attachments The following attachments cannot be sent through Care Everywhere. 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 Advance Directive Response Recorded Date/ Time Advance Directives No October 09, 2017 12:18pm Reason for Referral Status Reason Specialty Diagnoses / Procedures Referre d By Contact Referred To Contact Closed Radiology Diagnoses RUQ pain Procedures US GALLBLADDER RUQ Camron Alicea, LALA [address] [place] [address] Specialty Diagnoses / Procedures Referred By Contac t Referred To Contact Radiology Diagnoses Tear of left acetabular labrum, initial encounter Procedures IR [place] [address] [place] [address] Referral ID Status Reason Start Date Expiration Date Visits Re quested Visits Authorized [id number] Closed 02/12/2022 02/12/2023 1 1 Specialty Diagnoses / Procedures Referred By Contac t Referred To Contact Radiology Diagnoses Tear of left acetabular labrum, initial encounter S73.192A (ICD-10-CM) - Tear of left acetabular labrum, initial encounter Procedures IR INJ ARTHROGRAM HIP LEFT W[place] INJECTION HIP ARTHROGRAM [address]2013 - [place]JE[place] [address] [place] [address] Referral ID Status Reason Start Date Expiration Date Visits Re quested Visits Authorized [id number] Closed 02/05/2022 02/05/2023 1 1 Chief Complaint [...] RUQ pain Procedures US GALLBLADDER RUQ Camron Alicea, LALA [address] [place] [id number] Specialty Diagnoses / Procedures Referred By Contac t Referred To Contact Radiology Diagnoses Tear of left acetabular labrum, initial encounter S73.192A (ICD-10-CM) - Tear of left acetabular labrum, initial encounter Procedures IR INJ ARTHROGRAM HIP LEFT [place] INJECTION HIP ARTHROGRAM [id number] - [place]JE[place] [address] [place] [address] Referral ID Status Reason Start Date Expiration Date Visits Re quested Visits Authorized [id number] Closed 02/05/2022 02/05/2023 1 1 Reason Comments Routine Visit INFORMATION SOURCE (unrecogn ized section and content) DATE CREATED AUTHOR 03/29/2021 [facility] DATE CREATED AUTHOR AUTHOR'S ORGANIZ ATION 08/17/2021 [facility] DATE CREATED AUTHOR AUTHOR'S ORGANIZ ATION 08/18/2021 [facility] DATE CREATED AUTHOR AUTHOR'S ORGANIZ ATION 02/18/2022 [facility] DATE CREATED AUTHOR AUTHOR'S ORGANIZ ATION 04/16/[address] 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 [employer] provides no warranty or guarantee of the accuracy or completeness of information in this document.
== END 2023-05-12 09:17 | disposition home or self-care (01) ==
LOC: NOMS 09:16
PROVIDERS: Visit Provider Obstetrics & Gynecology
DX: Z36.89 Encounter for other specified antenatal screening (principal); Z3A.20 20 weeks gestation of pregnancy
CPT/HCPCS: 76805; 76817

== ENCOUNTER 2023-05-26 09:53 | Outpatient (OUT) | payer BC, SELFPAY ==
--- NOTE | 2023-05-26 09:56 | US_ITS ---
[address] [address] Patient Name: DARRIUS VERGARA MRN: [id number] date: 1995 Sex: F Assigned Patient Location: Current Patient Location: Accession/Order Number: [id number] Exam Date: 05/26/2023 09:58 Report Date: 05/26/2023 11:07 At the request of: KATHY KIMBLE Procedure: US OB cervical length EXAMINATION: US OB cervical length HISTORY: screening for cervical length Z36.86 COMPARISON: No relevant comparison available. FINDINGS: Position: Cephalic presentation, longitudinal lie Heart rate: 158 bpm Cervix: 3.8 cm, closed US/US OB cervical length IMPRESSION: Closed cervix measuring 3.8 cm in length Electronically authenticated by: ELDER GONZALEZ Date: 05/26/2023 11:07
--- OUTSIDE RECORDS SUMMARY | 2023-05-26 10:10 | XMS_ITS | CCD ---
Author Organization [facility] Care Team Providers Care Manager Front Office Name Role Phone Mirna Bennett Primary Care Provider NO FAMILY, PHYSICIAN Primary Care Provider Unava Jammie Levy Attending Provider Mirna Bennett Primary Care Provider SAMSA ANA Admitting Unavailable SAMSA ANA Attending Unavailable SAMSA ANA Consulting Unavailable SAMSA, ANA Admitting Unavailable SAMSA, ANA Attending Unavailable SAMSA ANA Consulting Unavailable AGUBOSIM KELSEY Consulting Unavailable RAAD, YARITZA Consulting Unavailable DR KATHY PERRY Admitting Unavailable SHYANNE, DR CHAVEZ Attending Unavailable DR KATHY PERRY Consulting Unavailable Julieth Winkler Unavailable Jammie Terry Unavailable Mirna Bennett MD Primary Care Provider ELICIA GONZALEZ Referring Unavailable MIRNA BENNETT Primary Care Unavailable ELICIA GONZALEZ Referring Unavailable MIRNA BENNETT Primary Care Unavailable Unavailable Primary Care Provider UnavailKATHY Stapleton Attending Unavailable KATHY PERRY Attending Unavailable AUBREY CYR Attending Unavailable Allergies Allergy Classification Reported Allergen(s) Allergy Type Date of Onset Reaction(s) Facility (2 sources) Amoxicillin-Pot Clavulanate Propensity to adverse reactions to drug 11-17-19 17 Other (See Comments) [employer] Phone: (3 sources) Bismuth-Containin g Compounds Propensity to adverse reactions to drug 03-24-19 16 Hives [employer] Phone: (1 source) bismuth subsalicylate Drug Allergy 10-10-19 18 [facility] Repository (5 sources) bismuth subsalicylate Drug Allergy 12-03-19 21 hives, Other (See Comments) [facility] (2 sources) bismuth subsalicylate Drug Allergy 12-03-19 [...] 3 12/17/2019 Active 21 day ethinyl estradiol 0.034334 mg/hr / etonogestrel 0.005 mg/hr vaginal system (7 sources) Progestin, Estrogen Start: 06-13-2018 NUVARING 0.12-0.015 MG/24HR vaginal ring NuvaRing Active fluocinonide 0.5 mg/ml topical cream (2 sources) Corticosteroid Start: 07-24-2019 fluocinonide (LIDEX) 0.05 % cream Apply topically 2 times daily. 60 g 1 07/24/2019 Active hydrocortisone 10 mg/ml / neomycin 3.5 mg/ml / polymyxin b 18531 unt/ml otic suspension (1 source) Aminoglycoside Antibacterial, Polymyxin-class Antibacterial, Corticosteroid Start: 04-12-2022 Odqmcpzn-Rvisrboam-IG 3.5-37615-6 3 drops left ear Three times a [...] Start: 11-01-2017 take 1 capsule by mo uth once daily omeprazole (PRILOSEC) 40 MG delayed [...] UA Negative Negative - 4(70) +++ mg/dL [facility] Blood, UA Negative Negative - 50 Bill/mcL [facility] Clarity, UA Clear [facility] re Color, UA Yellow [facility]car e Glucose, UA Negative Negative - 1999(110) ++++ mg/dL [facility] Interpretation and review of laboratory results Abnormal [facility] Healthca re Ketones, UA Positive Negative - 160(16) ++++ mg/dL [facility] Comment on above: 40 mg Leukocytes, UA Negative Negative - 500+++ Simon/mcL [facility] Nitrite, UA Negative Negative - Positive [facility] pH, UA 7.0 5 - 9 [facility] Healthcar e Protein, UA Trace Negative - 1999(20) ++++ mg/dL [facility] Spec Grav, UA 1.025 1 - 1.03 [facility] Urobilinogen, UA 0.2 0.2 - 12 mg/dL [facility] IR INJ ARTHROGRAM HIP LEFTon 02-13-2022 IR INJ ARTHROGRAM HIP LEFT EXAMINATION: FLUOROSCOPIC GUIDED LEFT HIP ARTHROGRAM, 02/12/2022 8:45 am COMPARISON: None. HISTORY: ORDERING SYSTEM PROVIDED HISTORY: Tear of left acetabular labrum, initial encounter TECHNOLOGIST PROVIDED HISTORY: Is the patient ?->No FLUOROSCOPY DOSE AND TYPE OR TIME AND EXPOSURES: 54 seconds; D AP 83 cGy cm2 PROCEDURE: COMMUNICATIONS PROFESSOR: Gaudencio Chávez MD Informed consent was obtained [...] Gaudencio Chávez MD 02/12/22 Final result Normal [facility] IR INJ ARTHROGRAM HIP LEFTon 02-12-2022 Successful fluoroscopic-guided left hip arthrogram. Patient was transferred to MRI for further imaging. [facility] CONSOLID[facility] EXAMINATION: FLUOROSCOPIC GUIDED LEFT HIP ARTHROGRAM, 02/12/2022 8:45 am COMPARISON: None. HISTORY: ORDERING SYSTEM PROVIDED HISTORY: Tear of left acetabular labrum, initial encounter TECHNOLOGIST PROVIDED HISTORY: Is the patient ?->No FLUOROSCOPY DOSE AND TYPE OR TIME AND EXPOSURES: 54 seconds; D AP 83 cGy cm2 PROCEDURE: COMMUNICATIONS PROFESSOR: Gaudencio Chávez MD Informed consent was obtained [...] is sent for subsequent MRI. EBL: None [facility] RIS CONSOLIDATED Gaudencio Chávez MD - 02/12/2022 EXAMINATION: FLUOROSCOPIC GUIDED LEFT HIP ARTHROGRAM, 02/12/2022 8:45 am COMPARISON: None. HISTORY: ORDERING SYSTEM PROVIDED HISTORY: Tear of left acetabular labrum, initial encounter TECHNOLOGIST PROVIDED HISTORY: Is the patient ?->No FLUOROSCOPY DOSE AND TYPE OR TIME AND EXPOSURES: 54 seconds; D AP 83 cGy cm2 PROCEDURE: COMMUNICATIONS PROFESSOR: Gaudencio Chávez MD Informed consent was obtained [...] was transferred to MRI for further imaging. [facility] Phone: Radiology Study observation (narrative) [facility] Phone: IR INJ ARTHROGRAM HIP LEFTOr dered By: Gaudencio Chávez on 02-12-2022 [facility] Phone: MRI HIP LEFT W CONTRASTon MRI [...] Anthony Villanueva MD 02/12/22 Final result Normal [facility] SARS-CoV-2 (COVID-19) RNA NA A+probe Ql (Resp)on 11-11-2021 SARS-CoV-2 (COVID-19) RNA ANNABELLE+probe Ql (Unsp spec) Positive [facility] Other PAP ACOG PANEL 2: 21 to 29on 08-17-2021 . . Normal [facility] Comment on above: Performed By: #### [id number] #### [facility] [address] [address] [address] Cesar Young Age Gdln ACOG Testing - Normal [facility] Comment on above: Performed By: #### [id number] #### [facility] [address] [place], [place] [address] Dr. Cesar Young DIAGNOSIS: Comment Normal [facility] Comment on above: Result Comment: NEGA TIVE FOR INTRAEPITHELIAL LESION OR MALIGNANCY. Performed By: #### [id number] #### [facility] [address] [place], [place] [address] Dr. Cesar Young Methodology: Comment Normal [facility] Comment on above: Result Comment: This liquid based ThinPrep(R) pap test was screened with the use of an image guided system. Performed By: #### [id number] #### [facility] [address] [place] [address] Dr. Cesar Young Note: Comment Normal [facility] Comment on above: Result Comment: The Pap smear is a screening test designed to aid in the detection of premalignant and malignant conditions of the uterine cervix. It is not a diagnostic procedure and should not be used as the sole means of detecting cervical cancer. Both false-positive and false-negative reports do occur. . Performed By: #### [id number] #### [facility] [address] [place] [address] Dr. Cesar Young Performed by: Comment Normal [facility] Comment on above: Result Comment: Linda Taveras Family Psychologist (ASCP) Performed By: #### [id number] #### [facility] [address] [place] [address] Dr. Cesar Young Reflex Criteria: Comment Normal [facility] Comment on above: Result Comment: The HPV DNA reflex criteria were not met with this specimen result therefore, no HPV testing was performed. . Performed By: #### [id number] #### [facility] [address] [place] [address] Dr. Cesar Young Specimen adequacy: Comment Normal [facility] Comment on above: Result Comment: Sati sfactory for evaluation. Endocervical and/or squamous metaplastic cells (endocervical component) are present. Performed By: #### [id number] #### [facility] [address] [place] [address] Dr. Cesar Young XR hand LT min 3V*on 022 XR hand LT min 3V* [facility] Main [place] [address] [place] [address] XRay Report Signed Patient: Vianey Chen MR#: [id number] 0 : 1995 Acct:[id number] Age/Sex: 26 / F ADM Date: 08/17/21 Loc: XDUCLY Room: Type: [facility] Attending Dr: Julieth HERNANDEZ Copies to: DAVID [...] Ailin Borrego M.D.08/17/2021 2:53 PM Dictation Location: [place] [address] Transcribed By: [facility] 08/17/21 1453 Dictated By: Ailin Borrego MD 08/17/21 145 Signed By: 08/17/211452 Normal [facility] XR hand LT min 3V* [facility] [employer] Other XR hand LT min 3V* [facility] Other XR hand LT min 3V* [address] [place] [address] [facility] Other XR hand LT min 3V* [place] [address] [facility] Other XR hand LT min 3V* XRay Report [facility] Other XR hand LT min 3V* Signed [facility] Other XR hand LT min 3V* Patient: Vianey Chen MR#: [id number] [facility] Other XR hand LT min 3V* 0 [facility] Other XR hand LT min 3V* : 1995 Acct:[id number] [facility] Other XR hand LT min 3V* Age/Sex: 26 / F ADM Date: 08/17/21 [facility] Other XR hand LT min 3V* Loc: XDUCLY Room: Type: REG CLI [facility] Other XR hand LT min 3V* Attending Dr: Julieth HERNANDEZ [facility] Other XR hand LT min 3V* Copies to: DAVID Salmeron [facility] Other XR hand LT min 3V* Ordering Provider: DAVID Salmeron [facility] Other XR hand LT min 3V* Date of Service: 08/17/21 [facility] Other XR hand LT min 3V* XR/XR hand LT min 3V*: Pain of left thumb [facility] Other XR hand LT min 3V* LEFT HAND - 4 views [facility] Other XR hand LT min 3V* CLINICAL DATA: Patient injured left hand yesterday and has bruising, pain and swelling over the [facility] Other XR hand LT min 3V* metacarpal phalangea l joint of the thumb and at the distal first metacarpal [facility] Other XR hand LT min 3V* COMPARISON: None [facility] Other XR hand LT min 3V* AP, lateral and oblique views were obtained along with a supplemental lateral view at the thumb. [facility] Other XR hand LT min 3V* There is no evidence of fracture or dislocation. There are no significant soft tissue [facility] Other XR hand LT min 3V* abnormalities. No rt [facility] Other XR hand LT min 3V* XR/XR hand LT min 3V* [facility] Other XR hand LT min 3V* IMPRESSION: [facility] Other XR hand LT min 3V* NO ACUTE BONY INJURY. [facility] Other XR hand LT min 3V* Impression dictated by: Ailin Borrego M.D.08/17/2021 2:53 PM [facility] Other XR hand LT min 3V* Dictation Location: RADIO-PC-13 [facility] Other XR hand LT min 3V* Transcribed By: PWS 08/17/21 1453 [facility] Other XR hand LT min 3V* Dictated By: Ailin Borrego MD 08/17/21 [facility] Other XR hand LT min 3V* Signed By: [facility] Other XR hand LT min 3V* 08/17/21 1453 Nor [facility] Other PREG HCG QUALon 06-04-2021 , QUAL Negative Normal NEGATIVE [facility] Comment on above: Performed By: #### P REG #### [facility] [address] [address] [address] Cesar Young Covid-19 PCR (CVDTB)on SARS-CoV-2 (COVID-19) RNA ANNABELLE+probe Ql (Unsp spec) Not detected Normal NOT DETECTED [facility] Comment on above: Result Comment: This test is not yet approved or cleared by the [place] FDA. When there are no FDA-approved or cleared tests available, and other criteria are met, FDA can make tests available under an emergency access mechanism called an Emergency Use Authorization (EUA). The EUA for this test is supported by the [employer] Driver of Health and Human Service's (HHS's) declaration [...] consistent with SARS-CoV-2. Performed By: #### C VDTB #### [facility] [address], [place] [address] Dr. Cesar Young [id number] 03-28-2021 SARS-CoV-2 (COVID-19) RNA ANNABELLE+probe Ql (Unsp spec) Normal [facility] Comment on above: Performed By: #### C OVID #### [employer] [facility] [place] [address] Snack Bar Attendant: Vijay Tinsley MD SARS-CoV-2 (COVID-19) RNA ANNABELLE+probe Ql (Unsp spec) Detected Abnormal NOTDET [facility] Comment on above: Result Comment: The [...] this assay. Fact sheet for Healthcare Providers: https://www.fda.gov/media/496548/download Fact sheet for Patients: https://www.fda.gov/media/868268/download METHODOLOGY: RT-PCR Results reported to the appropriate Health Department Performed By: #### C OVID #### [employer] [address] [place] [address] Snack Bar Attendant: Vijay Tinsley MD [id number] 03-27-2021 SARS-CoV-2 (COVID-19) RNA ANNABELLE+probe Ql (Unsp spec) NOT REPORTED Normal [facility] Comment on above: Performed By: #### C OVID #### [employer] [address] [place] [address] Snack Bar Attendant: Vijay Tinsley MD CBC Auto Differentialon 04-01 Basophils (Bld) [#/Vol] 0.10 10*3/uL [employer] Phone: Basophils/100 WBC (Bld) 1 % 0 - 2 % [employer] Phone: Differential Type NOT REPORTED [employer] Phone: Eosinophils (Bld) [#/Vol] 0.20 10*3/uL [employer] Phone: Eosinophils/100 WBC (Bld) 2 % 0 - 4 % [employer] Phone: Erythrocyte distribution width (RBC) [Ratio] 13.9 % 11.5 - 14.9 % [employer] Phone: Hematocrit (Bld) [Volume fraction] 43.1 % 36 - 46 % [employer] Phone: Hemoglobin (Bld) [Mass/Vol] 14.2 g/dL 12 - 16 g/dL [employer] Phone: Lymphocytes (Bld) [#/Vol] 2.10 10*3/uL [employer] Phone: Lymphocytes/100 WBC (Bld) 25 % 24 - 44 % [employer] Phone: MCH (RBC) [Entitic mass] 28.7 pg 26 - 34 pg [employer] Phone: MCHC (RBC) [Mass/Vol] 33.0 g/dL 31 - 37 g/dL [employer] Work Phone: MCV (RBC) [Entitic vol] 87.2 fL 80 - 100 fL [facility] [employer] Work Phone: Monocytes (Bld) [#/Vol] 0.60 10*3/uL [facility] [employer] Work Phone: Monocytes/100 WBC (Bld) 7 % 1 - 7 % [facility] [employer] Work Phone: Platelet mean volume (Bld) [Entitic vol] 7.7 fL 6 - 12 fL [facility] [employer] Work Phone: Platelets (Bld) [#/Vol] 359 10*3/uL [facility] [employer] Work Phone: Platelets (Bld) [#/Vol] NOT REPORTED [facility] [employer] Work Phone: RBC (Bld) [#/Vol] 4.94 10*6/uL 4 - 5.2 m/uL [facility] [employer] Work Phone: RBC morphology finding Nom (Bld) NOT REPORTED [facility] [employer] Work Phone: Segmented neutrophils/100 WBC (Bld) 65 % 36 - 66 % [facility] [employer] Work Phone: Segs Absolute 5.40 [email or web address] [facility] Work Phone: WBC (Bld) [#/Vol] NOT REPORTED per 100 WBC [facility] [employer] Work Phone: WBC (Bld) [#/Vol] 8.4 10*3/uL [facility] [employer] Work Phone: WBC Morphology NOT REPORTED [facility] Work Phone: Comprehensive Metabolic Pane dawit 04-24-2020 Albumin [Mass/Vol] 3.9 g/dL 3.5 - 5.2 g/dL [facility] [employer] Work Phone: Albumin/Globulin [Mass ratio] NOT REPORTED [facility] [employer] Work Phone: ALP [Catalytic activity/Vol] 59 U/L 35 - 104 U/L [employer] Phone: ALT [Catalytic activity/Vol] 19 U/L 5 - 33 U/L [employer] Phone: Anion gap [Moles/Vol] 10 mmol/L 9 - 17 mmol/L [employer] Phone: AST [Catalytic activity/Vol] 15 U/L <32 [employer] Phone: Bilirubin Ql (U) <0.15 Low 0.3 - 1.2 mg/dL [employer] Phone: Bun/Cre Ratio NOT REPORTED [employer] [facility] Work Phone: Calcium [Mass/Vol] 9.2 mg/dL 8.6 - 10. 4 mg/dL [employer] Phone: Chloride [Moles/Vol] 104 mmol/L 98 - 107 mmol/L [employer] Phone: CO2 [Moles/Vol] 25 mmol/L 20 - 31 mmol/L [employer] Phone: Creatinine [Mass/Vol] 0.68 mg/dL 0.5 - 0.9 mg/dL [employer] Phone: GFR >60 >60 mL/min [employer] Phone: GFR Non- >60 >60 mL/min [employer] Phone: GFR/1.73 sq M predicted among non-blacks MDRD (S/P/Bld) [Vol rate/Area] [employer] Phone: Comment on above: Average GFR for 20-2 9 years old: 116 mL/min/1.73sq m Chronic Kidney Disease: <60 mL/min/1.73sq m Kidney failure: <15 mL/min/1.73sq m eGFR calculated using average adult body mass. Additional eGFR calculator available at: http://www.SprainGo.com/multiple_crcl_2012.htm GFR/1.73 sq M predicted among non-blacks MDRD (S/P/Bld) [Vol rate/Area] NOT REPORTED [employer] Phone: Glucose [Mass/Vol] 135 mg/dL High 70 - 99 mg/dL [facility] [employer] Phone: Interpretation and review of laboratory results Abnormal [facility] Phone: Potassium [Moles/Vol] 3.7 mmol/L 3.7 - 5.3 mmol/L [facility] Phone: Protein [Mass/Vol] 7.1 g/dL 6.4 - 8.3 g/dL [facility] [employer] Phone: Sodium [Moles/Vol] 139 mmol/L 135 - 144 mmol/L [facility] Phone: Urea nitrogen [Mass/Vol] 11 mg/dL 6 - 20 mg/dL [facility] Phone: Otheron 04-24-2020 Immature granulocytes (Bld) [#/Vol] NOT REPORTED 0 % [employer] Phone: US GALLBLADDER RUQon 04-24- 021 Unremarkable right upper quadrant ultrasound. [employer] Phone: EXAMINATION: RIGHT UPPER QUADRANT ULTRASOUND 04/24/2020 [...] No evidence of right upper quadrant ascites. [employer] Phone: Erick, Mhpn Incoming Radiant Results From [employer] - 04/24/2020 8:18 AM EST EXAMINATION: RIGHT [...] ascites. IMPRESSION: Unremarkable right upper quadrant ultrasound. [employer] Work Phone: Vital Signs Date Time Vital Sign Value Performing Clinician Facility 04-14-2023 10:54-0500 Body mass index (BMI) [Ratio] 44.14 kg/m2 [facility] Phone: [facility] [employer] 04-14-2023 10:54-0500 Body weight 102.51 kg [facility] Phone: [facility] [employer] 04-14-2023 10:54-0500 Diastolic blood pressure 70 mm[Hg] [facility] Phone: [facility] [employer] 04-14-2023 10:54-0500 Systolic blood pressure 120 mm[Hg] [facility] Phone: [facility] [employer] 04-12-2022 10:30-0500 Body height 152.4 cm Julieth Winkler Other [facility] Other 04-12-2022 10:30-0500 Body mass index (BMI) [Ratio] 41.59 kg/m2 Julieth Winkler Other [facility] Other 04-12-2022 10:30-0500 Body temperature 98.5 [degF] Julieth Winkler Other [facility] Other 04-12-2022 10:30-0500 Body weight 96.62 kg Julieth Winkler Other [facility] Other 04-12-2022 10:30-0500 Diastolic blood pressure 87 mm[Hg] Julieth Winkler Other [facility] Other 04-12-2022 10:30-0500 Respiratory rate 18 /min Julieth Winkler Other [facility] Other 04-12-2022 10:30-0500 SaO2% (BldA) [Mass fraction] 98 % Julieth Winkler Other [facility] Other 04-12-2022 10:30-0500 Systolic blood pressure 141 mm[Hg] Julieth Winkler Other [facility] Other 11-30-2021 17:00-0400 Body height 152.4 cm Jammie Mara Other [facility] Other 11-30-2021 17:00-0400 Body mass index (BMI) [Ratio] 39.06 kg/m2 Jammie Terry Other [facility] Other 11-30-2021 17:00-0400 Body temperature 97.6 [degF] Jammie Terry Other [facility] Other 11-30-2021 17:00-0400 Body weight 90.72 kg Jammie Terry Other [facility] Other 11-30-2021 17:00-0400 Diastolic blood pressure 84 mm[Hg] Jammie Terry Other [facility] Other 11-30-2021 17:00-0400 Respiratory rate 18 /min Jammie Terry Other [facility] Other 11-30-2021 17:00-0400 SaO2% (BldA) [Mass fraction] 99 % Jammie Terry Other [facility] Other 11-30-2021 17:00-0400 Systolic blood pressure 132 mm[Hg] Jammie Terry Other [facility] Other 11-11-2021 10:30-0400 Body height 152.4 cm Julieth Winkler Other [facility] Other 11-11-2021 10:30-0400 Body mass index (BMI) [Ratio] 37.1 kg/m2 Julieth Winkler Other [facility] Other 11-11-2021 10:30-0400 Body temperature 98.1 [degF] Julieth Winkler Other [facility] Other 11-11-2021 10:30-0400 Body weight 86.18 kg Julieth Agarwalmond Other [facility] Other 11-11-2021 10:30-0400 Respiratory rate 18 /min Julieth Agarwalmond Other [facility] Other 11-11-2021 10:30-0400 SaO2% (BldA) [Mass fraction] 99 % Julieth Agarwalmond Other [facility] Other 06-20-2022 14:55-0400 Body height 152.4 cm Julieth Winkler Other [facility] Other 08-17-2021 14:55-0400 Body mass index (BMI) [Ratio] 39.84 kg/m2 Julieth Winkler Other [facility] Other 08-17-2021 14:55-0400 Body temperature 97.8 [degF] Julieht Winkler Other [facility] Other 08-17-2021 14:55-0400 Body weight 92.53 kg Julieth Winkler Other [facility] Other 08-17-2021 14:55-0400 Diastolic blood pressure 74 mm[Hg] Julieth Agarwalmond Other [facility] Other 08-17-2021 14:55-0400 Respiratory rate 18 /min Julieth Winkler Other [facility] Other 08-17-2021 14:55-0400 SaO2% (BldA) [Mass fraction] 99 % Julieth Winkler Other [facility] Other 08-17-2021 14:55-0400 Systolic blood pressure 134 mm[Hg] Julieth Winkler Other [facility] Other Encounters Encounter Date Encounter Type Care Provider Facility Start: 05-12-2023 End: 05-12-2023 ambulatory AUBREY CYR Not Available Start: 04-14-2023 End: 04-14-2023 ambulatory KATHY PERRY Not Available Start: 04-14-2023 End: 04-14-2023 Patient encounter procedure Kathy Perry DO Work Phone: [facility] Start: 04-14-2023 End: 04-14-2023 Periodic preventive med est patient 18-39 yrs Kathy Perry DO Work Phone: [facility] Comment on above: Well woman exam with routine gynecological exam; Exposure to STD; Encounter for anatomic survey; Need for maternal serum alpha-protein (MSAFP) screening; Second trimester Start: 03-17-2023 End: 03-17-2023 ambulatory KATHY PERRY Not Available Start: 02-17-2023 End: 02-17-2023 ambulatory KATHY PERRY Not Available Start: 04-12-2022 End: 04-12-2022 ambulatory Julieth Winkler Other [facility] Other Start: 04-12-2022 Office outpatient vi sit 15 minutes Julieth Cathi [facility] Start: 02-12-2022 End: 02-15-2022 ambulatory [facility] Start: 02-12-2022 End: 02-14-2022 Subsequent hospital visit by physician [facility] Ir Nurse [facility] Special Procedures Comment on above: Tear of left acetabu lar labrum, initial encounter Start: 11-30-2021 End: 11-30-2021 ambulatory Jammie Terry Other [facility] Other Start: 11-30-2021 Office outpatient vi sit 15 minutes Jammie Terry [facility] Start: 11-11-2021 End: 11-11-2021 ambulatory Julieth Winkler Other [facility] Other Start: 11-11-2021 Office outpatient vi sit 15 minutes Julieth Cathi [facility] Start: 08-17-2021 End: 08-17-2021 ambulatory Julieth Winkler Other [facility] Other Start: 08-17-2021 Office outpatient vi sit 15 minutes Julieth Cathi [facility] Start: 08-12-2021 End: 08-12-[address] KATHY PERRY Facility:[facility] Start: 06-04-2021 Encounter for preprocedural laboratory examination ANA SOMERS [facility] Start: 06-04-2021 End: 06-04-2021 ambulatory ANA SOMERS Facility:[facility] Start: 06-02-2021 End: 06-03-2021 ambulatory [facility] Facility:[facility] Start: 06-02-2021 End: 06-03-2021 Encounter for preprocedural laboratory examination ANA SOMERS Facility:[facility] Start: 07-01-2020 End: 07-01-2020 Patient encounter procedure PHYSICIAN NO FAMILY -Ultrasound [facility] [place] Start: 06-27-2020 End: 06-27-2020 Patient encounter procedure [facility]ICIAN [facility] Start: 04-24-2020 End: 04-24-2020 Subsequent hospital visit by physician Mirna FERNÁNDEZ Laboratory Comment on above: RUQ pain Start: 04-24-2020 End: 04-26-2020 Subsequent hospital visit by physician [facility] Rm [facility] Ultrasound Comment on above: RUQ pain Start: 05-26-2015 End: 11-24-2017 Patient encounter status [facility] Procedures Date Procedure Procedure Detail Performing Clinician Start: 04-14-2023 Urnls dip stick/tabl et rgnt non-auto w/o micrscp Kathy Perry DO Work Phone: Start: 02-12-2022 IR ARTHROGRAM HIP LEFT Elicia Tadeo REEVES Work Phone: Start: 06-27-2020 Plain X-ray [...] (MSAFP) screening Expected: 04/14/2023 (Approximate), Expires: 05/13/2023 [place] [facility] Comment on above: Expected: 04/14/2023 (Approximate), Expires: 05/13/2023 Start: 04-14-2023 End: 04-14-2024 US for US OB ANATOMY SINGLE W US OB CERVICAL LENGTH Imaging Routine Encounter for anatomic survey Expected: 04/14/2023 (Approximate), Expires: 04/14/2024 [facility] Comment on above: Expected: 04/14/2023 (Approximate), Expires: 04/14/2024 Start: 03-27-2022 Depression Monitoring Depression Mon itoring [employer] Start: 09-28-2021 Influenza vaccination Flu vaccine (# 1) [employer] Start: 04-22-2021 Influenza vaccination Flu vaccine (# 1) [employer] Phone: Comment on above: Postponed from 10/29 (Patient Refused) Start: 04-22-2021 Pneumococcal 0-64 ye ars Vaccine (1 of 1 - PPSV23) Pneumococcal 0-64 years Vaccine (1 of 1 - PPSV23) [employer] Phone: Comment on above: Postponed from 02/19 (Patient Refused) Start: 04-07-2021 DTaP/Tdap/Td vaccine (7 - Td or Tdap) DTaP/Tdap/Td vaccine (7 - Td or Tdap) [employer] Start: 04-07-2021 DTaP/Tdap/Td vaccine (7 - Td) DTaP/Tdap/Td vaccine (7 - Td) [employer] Phone: Start: 07-01-2020 Duplex scan of lower limb veins US venous duplex [facility] Start: 02-20-2016 Screening for malign ant neoplasm of cervix [employer] Start: 2013 Hepatitis C screening Hepatitis C sc reen [facility] [employer] Start: 2010 HIV screening HIV screen [facility] [employer] Start: 2001 Pneumococcal 0-64 ye ars Vaccine (1 - PCV) Pneumococcal 0-64 years Vaccine (1 - PCV) [facility]: 1995 COVID-19 Vaccine (#1) COVID-19 Vacci ne (#1) [facility] Start: 1995 Hepatitis C screening Hepatitis C sc jyothi [employer] Phone: CHLAMYDIA TRACHOMATI S (GENITO/STI) CHLAMYDIA TRACHOMATIS (GENITO/STI) Lab Routine Exposure to STD Ordered: 04/14/2023 [facility] Comment on above: Ordered: 04/14/2023 Cytology Cervical or vaginal smear or scraping study Pap Smear Pathology and Cytology Routine Well woman exam with routine gynecological exam Ordered: 04/14/2023 [facility] [employer] Work Phone: Comment on above: Ordered: 04/14/2023 End: 02-12-2022 IR INJ ARTHROGRAM HIP LEFT IR INJ ARTHROGRAM HIP LEFT Imaging Routine Tear of left acetabular labrum, initial encounter 1 Occurrences starting 02/12/2022 until 02/12/2022 [facility] [employer] Phone: Comment on above: 1 Occurrences starti ng 02/12/2022 until 02/12/2022 Neisseria gonorrhoea e DNA [Presence] in Unspecified specimen by ANNABELLE with probe detection Neisseria gonorrhea DNA probe, direct Lab Routine Exposure to STD Ordered: 04/14/2023 [facility] Healthcare Comment on above: Ordered: 04/14/2023 SURESWAB(R) ADVANCED VAGINITIS PLUS, TMA SURESWAB(R) ADVANCED VAGINITIS PLUS, TMA Pathology and Cytology Routine Exposure to STD Ordered: 04/14/2023 [facility] Healthcare Comment on above: Ordered: 04/14/2023 Immunizations Immunization Date Immunization Notes Care Provider Parker rodrigues 04-07-2011 human papilloma viru s vaccine, quadrivalent [facility] [employer] Phone: 04-07-2011 tetanus toxoid, redu julia diphtheria toxoid, and acellular pertussis vaccine, adsorbed [employer] Phone: 02-04-2010 influenza virus vacc ine, unspecified formulation [facility] Phone: 12-23-2009 human papilloma viru s vaccine, quadrivalent [facility] [employer] Phone: 12-23-2009 meningococcal ACWY vaccine, unspecified formulation [facility] [employer] Phone: 04-23-2009 human papilloma viru s vaccine, quadrivalent [facility] Work Phone: 10-21-2000 diphtheria, tetanus toxoids and acellular pertussis vaccine [facility] [employer] Phone: 10-21-2000 measles, mumps and r ubella virus vaccine [facility] Phone: 07-25-1997 diphtheria, tetanus toxoids and acellular pertussis vaccine [facility] [employer] Phone: 07-25-1997 hepatitis B vaccine, adult dosage [facility] [address] [facility] Work Phone: 07-25-1997 hepatitis B vaccine, unspecified formulation [facility] Phone: 07-25-1997 Hib, unspecified [facility] Work Phone: 07-19-1997 poliovirus vaccine, unspecified formulation [facility] Phone: 09-27-1996 diphtheria, tetanus toxoids and acellular pertussis vaccine [facility] [employer] Phone: 09-27-1996 Hib, unspecified Mirna [facility] Work Phone: 09-27-1996 measles, mumps and r ubella virus vaccine [facility] Phone: 09-27-1996 poliovirus vaccine, unspecified formulation [facility] [employer] Phone: 1995 diphtheria, tetanus toxoids and acellular pertussis vaccine [employer] Phone: 1995 Hib, unspecified [facility] Work Phone: 1995 poliovirus vaccine, unspecified formulation [employer] Phone: 1995 diphtheria, tetanus toxoids and acellular pertussis vaccine [employer] Phone: 1995 hepatitis B vaccine, adult dosage [facility] [address] [facility] [employer] Work Phone: 1995 hepatitis B vaccine, unspecified formulation [employer] Phone: 1995 Hib, unspecified Mirna Bennett [facility] Work Phone: 1995 poliovirus vaccine, unspecified formulation [employer] Phone: 1995 hepatitis B vaccine, adult dosage [facility] [address] [facility] [employer] Phone: 1995 hepatitis B vaccine, unspecified formulation [employer] Phone: Payers Date Payer Category Payer Unknown BCBS BCBS [id number] 2022-Present [phone] [address] [place] [address] [id number] 1995 Unknown [id number] 1995 Unknown [id number] 1995 Unknown [id number] 1995 Unknown [id number] 1995 Unknown [id number] 1995 Unknown [id number] 1995 Unknown [id number] 1995 Unknown [id number] 1995 Unknown [id number] 1959 Unknown [id number] Self-pay Self Pay [id number] Unknown Self Pay [id number] Unknown Self Pay [id number] Social History Date Type Detail Facility Start: 02-28-2007 End: 08-14-2022 Tobacco smoking status TNIS Current every day smoker [facility] [employer] Start: 02-28-2007 History of tobacco use Cigarette Smo ker [employer] Phone: Start: 04-22-2020 End: 08-14-2022 Cigarettes smoked current (pack per day) - Reported [employer] Phone: Start: 04-22-2020 End: 12-16-2021 Tobacco use and exposure Never used [employer] Phone: Start: 04-22-2020 End: 03-17-2023 Alcohol intake Current drinker of alcohol (finding) [employer] Phone: Start: 03-24-2015 Alcohol Comment occasional [employer] Work Phone: Start: 1995 Sex Assigned At Not on file M [employer] Work Phone: Start: 1995 Sex Assigned At Female F [facility] Start: 08-14-2022 Sex Assigned At N [employer] Other Start: 02-03-2022 History SDOH Physica l Activity DPW 0 BON [employer] Work Phone: Start: 03-27-2021 History SDOH Financial 5 BON [employer] Work Phone: Start: 02-03-2022 History SDOH IPV Fear 2 B ON [employer] Work Phone: Start: 03-27-2021 History SDOH Food Worry 1 BON [employer] Phone: Start: 01-26-2022 End: 02-05-2022 Exposure to SARS-CoV-2 (event) Not sure [employer] [employer] Start: 08-14-2022 Alcohol Comment 1-2 drinks les [...] nursing note reviewed. Exam conducted with a chemical librarian present. Vitals: Estimated body mass index is [...] her MSAFP order do have done at [facility]. Documented by Lauren Crystal MA on behalf of: Kathy Perry DO documented in this encounter [facility] 04-12-2022 Evaluation note Encounter Date Diagnosis [...] left ear, unspecified type (ICD-10 - H60.502) [employer] Other 12-16-2022 History of Present illness Narrative* Analia Sin RN - 02/12/2022 8:30 AM EST Patient tolerated left hip injections without distress. Dry dressing to site. Patient to MRI for further imaging. [facility] [employer] Work Phone: [phone] Evaluation note* Encounter Date Diagnosis Assessment Notes Treatment Notes Treatment Clinical Notes Nov, Tattoo reaction (ICD-10 - L92.3) Use medication as directed. complete all doses. Recommend unscented soap to [facility] [employer] Other 09-14-2022 Evaluation note* Encounter Date Diagnosis [...] no improvement in 2 to 3 days. [employer] Other 06-20-2022 Evaluation note* Encounter Date Diagnosis [...] days, Tendonitis home care material was printed [employer] Other Evaluation noteNo Assessments Information Available [facility] Diagnosis Tear of left acetabular labrum, initial encounter documented in this encounter [facility] [employer] Phone: evaluation note* Diagnosis Well woman exam with routine gynecological exam Routine gynecological examination Exposure to STD Encounter for anatomic survey Need for maternal serum alpha-protein (MSAFP) screening Second trimester state, incidental documented in this encounter [facility] N[facility] - Reported* Type Description Date Surgical History laparoscopy female Surgical History appendectomy Surgical History bronchoscopy [employer] Other History general Narrative - Reported* Type Description Date Medical History Esophageal reflux Surgical History laparoscopy female Surgical History appendectomy Surgical History bronchoscopy [facility] Other Hospital Discharge instructions* Attachments The following attachments cannot be sent through Care Everywhere. 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 Advance Directive Response Recorded Date/ Time Advance Directives No October 09, 2017 12:18pm Reason for Referral Status Reason Specialty Diagnoses / Procedures Referre d By Contact Referred To Contact Closed Radiology Diagnoses RUQ pain Procedures [place] [address] [place] [address] Specialty Diagnoses / Procedures Referred By Contac t Referred To Contact Radiology Diagnoses Tear of left acetabular labrum, initial encounter Procedures IR [place] [address] [place] [address] Referral ID Status Reason Start Date Expiration Date Visits Re quested Visits Authorized [id number] Closed 02/12/2022 02/12/2023 1 1 Specialty Diagnoses / Procedures Referred By Anupama t Referred To Contact Radiology Diagnoses Tear of left acetabular labrum, initial encounter S73.192A (ICD-10-CM) - Tear of left acetabular labrum, initial encounter Procedures IR INJ ARTHROGRAM HIP LEFT HI INJECTION HIP ARTHROGRAM [id number] - HI INJECTION HIP ARTHROGRAM Elicia Gonzalez PA [address] [place] [id number] Referral ID Status Reason Start Date Expiration Date Visits Re quested Visits Authorized [id number] Closed 02/05/2022 02/05/2023 1 1 Chief Complaint and Reason for Visit Chief Complaint Tenderness of left c correction Summary Purpose Family History No Family History Records FoundNo Family History Records FoundNo Family History Records FoundNo Family History Records FoundNo Family History Records Found Additional Source Comments Reason for Visit (unrecogniz ed section and content) Status Reason Specialty Diagnoses / Procedures Referre d By Contact Referred To Contact Closed Radiology Diagnoses RUQ pain Procedures [place] [address] [place] [address] Specialty Diagnoses / Procedures Referred By Anupama t Referred To Contact Radiology Diagnoses Tear of left acetabular labrum, initial encounter S73.192A (ICD-10-CM) - Tear of left acetabular labrum, initial encounter Procedures IR INJ ARTHROGRAM HIP LEFT HI INJECTION HIP ARTHROGRAM - HI INJECTION HIP ARTHROGRAM Elicia Gonzalez PA [address] [place] [address] Referral ID Status Reason Start Date Expiration Date Visits Re quested Visits Authorized [id number] Closed 02/05/2022 02/05/2023 1 1 Reason Comments Routine Visit INFORMATION SOURCE (unrecogn ized section and content) DATE CREATED AUTHOR 03/29/2021 [facility] DATE CREATED AUTHOR AUTHOR'S ORGANIZ ATION 08/17/2021 [facility] DATE CREATED AUTHOR AUTHOR'S ORGANIZ ATION 08/18/2021 [facility] DATE CREATED AUTHOR AUTHOR'S ORGANIZ ATION 02/18/2022 [facility] DATE CREATED AUTHOR AUTHOR'S ORGANIZ ATION 05/13/2023 [facility] [employer] Care Teams (unrecognized sec tion and content) Manager Front Office Relationship Specialty [place] [address] [facility] [place] [address] [place] [address] PCP - General Family Medicine 03/11/15 FOR [...] BE BASED ON THE PRIMARY CLINICAL RECORDS. [employer] provides no warranty or guarantee of the accuracy or completeness of information in this document.
== END 2023-05-26 09:54 | disposition home or self-care (01) ==
LOC: US 09:53
PROVIDERS: Visit Provider Obstetrics & Gynecology
DX: Z36.86 Encounter for antenatal screening for cervical length (principal)
CPT/HCPCS: 76817

== ENCOUNTER 2023-06-14 08:43 | Outpatient (OUT) | payer BC, SELFPAY ==
--- NOTE | 2023-06-14 08:45 | US_ITS ---
[address] [address] Patient Name: DARRIUS VERGARA MRN: [id number] date: 1995 Sex: F Assigned Patient Location: [facility] Current Patient Location: [facility] Accession/Order Number: [id number] Exam Date: 06/14/2023 08:46 Report Date: 06/14/2023 10:45 At the request of: KATHY KIMBLE Procedure: US OB follow up EXAMINATION: US OB follow up HISTORY: INCOMPLETE ANATOMY FOLLOW UP COMPARISON: 05/12/2023 FINDINGS: position: Cephalic presentation, longitudinal lie Heart rate: 144 bpm Normal observed anatomy: Four-chamber heart, RVOT, LVOT, nasal bone Abnormal anatomy: Left clubfoot Clinical age: 25 weeks 1 day Clinical LASHELL: 09/26/2023 US/US OB follow up IMPRESSION: Left clubfoot. Further evaluation is recommended Electronically authenticated by: ELDER GONZALEZ Date: 06/14/2023 10:45
--- OUTSIDE RECORDS SUMMARY | 2023-06-14 09:00 | XMS_ITS | CCD ---
Author Organization [facility] Care Team Providers Care Weatherseal Technician Name Role Phone Mirna Bennett Primary Care Provider NO FAMILY, PHYSICIAN Primary Care Provider Unava Jammie Levy Attending Provider [phone] Mirna Bennett Primary Care Provider SAMSA ANA Admitting Unavailable SAMSA ANA Attending Unavailable SAMSA ANA Consulting Unavailable SAMSA, ANA Admitting Unavailable SAMSA, ANA Attending Unavailable SAMSA ANA Consulting Unavailable AGUBOSIM KELSEY Consulting Unavailable RAAD, YARITZA Consulting Unavailable DR KATHY PERRY Admitting Unavailable SHYANNE, DR CHAVEZ Attending Unavailable DR KATHY PERRY Consulting Unavailable Julieth Winkler Unavailable Jammei Terry Unavailable Mirna Bennett MD Primary Care [...] to drug 11-17-19 17 Other (See Comments) [employer] Phone: (3 sources) Bismuth-Containin g Compounds Propensity to adverse reactions to drug 03-24-19 16 Hives [employer] Phone: (1 source) bismuth subsalicylate Drug Allergy 10-10-19 18 [facility] (5 sources) bismuth subsalicylate Drug Allergy 12-03-19 21 hives, Other (See Comments) [facility] (2 sources) bismuth subsalicylate Drug Allergy 12-03-19 [...] 3 12/17/2019 Active 21 day ethinyl estradiol 0.174127 mg/hr / etonogestrel 0.005 mg/hr vaginal system (7 sources) Progestin, Estrogen Start: 06-13-2018 NUVARING 0.12-0.015 MG/24HR vaginal ring NuvaRing Active fluocinonide 0.5 mg/ml topical cream (2 sources) Corticosteroid Start: 07-24-2019 fluocinonide (LIDEX) 0.05 % cream Apply topically 2 times daily. 60 g 1 07/24/2019 Active hydrocortisone 10 mg/ml / neomycin 3.5 mg/ml / polymyxin b 07984 unt/ml otic suspension (1 source) Aminoglycoside Antibacterial, Polymyxin-class Antibacterial, Corticosteroid Start: 04-12-2022 Uuokogov-Uptlveoki-LZ 3.5-76195-8 3 drops left ear Three times a [...] UA Negative Negative - 4(70) +++ mg/dL [facility] Blood, UA Negative Negative - 50 Bill/mcL [facility] Clarity, UA Clear [facility] Healthar re Color, UA Yellow [facility] Healthcar e Glucose, UA Negative Negative - 1999(110) ++++ mg/dL [facility] Interpretation and review of laboratory results Abnormal [facility] Healthca re Ketones, UA Positive Negative - 160(16) ++++ mg/dL [facility] Comment on above: 40 mg Leukocytes, UA Negative Negative - 500+++ Simon/mcL [facility] Nitrite, UA Negative Negative - Positive [facility] pH, UA 7.0 5 - 9 [facility] Protein, UA Trace Negative - 1999(20) ++++ mg/dL [facility] Spec Grav, UA 1.025 1 - 1.03 [facility] Urobilinogen, UA 0.2 0.2 - 12 mg/dL [facility] IR INJ ARTHROGRAM HIP LEFTon 02-13-2022 IR INJ ARTHROGRAM HIP LEFT EXAMINATION: FLUOROSCOPIC GUIDED LEFT HIP ARTHROGRAM, 02/12/2022 8:45 am COMPARISON: None. HISTORY: ORDERING SYSTEM PROVIDED HISTORY: Tear of left acetabular labrum, initial encounter TECHNOLOGIST PROVIDED HISTORY: Is the patient ?->No FLUOROSCOPY DOSE AND TYPE OR TIME AND EXPOSURES: 54 seconds; D AP 83 cGy cm2 PROCEDURE: HARD ROCK MINER: Gaudencio Chávez MD Informed consent was obtained [...] Gaudencio Chávez MD 02/12/22 Final result Normal [facility] IR INJ ARTHROGRAM HIP LEFTon 02-12-2022 Successful fluoroscopic-guided left hip arthrogram. Patient was transferred to MRI for further imaging. [facility] CONSOL[facility] EXAMINATION: FLUOROSCOPIC GUIDED LEFT HIP ARTHROGRAM, 02/12/2022 8:45 am COMPARISON: None. HISTORY: ORDERING SYSTEM PROVIDED HISTORY: Tear of left acetabular labrum, initial encounter TECHNOLOGIST PROVIDED HISTORY: Is the patient ?->No FLUOROSCOPY DOSE AND TYPE OR TIME AND EXPOSURES: 54 seconds; D AP 83 cGy cm2 PROCEDURE: HARD ROCK MINER: Gaudencio Chávez MD Informed consent was obtained [...] is sent for subsequent MRI. EBL: None [facility] CONSOLIDATED Gaudencio Chávez MD - 02/12/2022 EXAMINATION: FLUOROSCOPIC GUIDED LEFT HIP ARTHROGRAM, 02/12/2022 8:45 am COMPARISON: None. HISTORY: ORDERING SYSTEM PROVIDED HISTORY: Tear of left acetabular labrum, initial encounter TECHNOLOGIST PROVIDED HISTORY: Is the patient ?->No FLUOROSCOPY DOSE AND TYPE OR TIME AND EXPOSURES: 54 seconds; D AP 83 cGy cm2 PROCEDURE: HARD ROCK MINER: Gaudencio Chávez MD Informed consent was obtained [...] was transferred to MRI for further imaging. [employer] Phone: Radiology Study observation (narrative) [employer] Phone: IR INJ ARTHROGRAM HIP LEFTOr dered By: Gaudencio Chávez on 02-12-2022 [employer] Phone: MRI HIP LEFT W CONTRASTon MRI [...] Anthony Villanueva MD 02/12/22 Final result Normal [facility] SARS-CoV-2 (COVID-19) RNA NA A+probe Ql (Resp)on 11-11-2021 SARS-CoV-2 (COVID-19) RNA ANNABELLE+probe Ql (Unsp spec) Positive [email or web address] Other PAP ACOG PANEL 2: 21 to 29on 08-17-2021 . . Normal [facility] Comment on above: Performed By: #### [id number] #### [facility] [address] [address] [address] Cesar Young Age Gdln ACOG Testing - Normal [facility] Comment on above: Performed By: #### [id number] #### [facility] [address] [place], [place] [address] Dr. Cesar Young DIAGNOSIS: Comment Normal [facility] Comment on above: Result Comment: NEGA TIVE FOR INTRAEPITHELIAL LESION OR MALIGNANCY. Performed By: #### [id number] #### [facility] [address] [place], [place] [address] Dr. Cesar Young Methodology: Comment Normal [facility] Comment on above: Result Comment: This liquid based ThinPrep(R) pap test was screened with the use of an image guided system. Performed By: #### [id number] #### [facility] [address] [place] [address] Dr. Cesar Young Note: Comment Normal [facility] Comment on above: Result Comment: The Pap smear is a screening test designed to aid in the detection of premalignant and malignant conditions of the uterine cervix. It is not a diagnostic procedure and should not be used as the sole means of detecting cervical cancer. Both false-positive and false-negative reports do occur. . Performed By: #### [id number] #### [facility] [address] [place] [address] Dr. Cesar Young Performed by: Comment Normal [facility] Comment on above: Result Comment: Linda Taveras Superintendent Maintenance Airports (ASCP) Performed By: #### 4 [id number] #### [facility] [address] [place] [address] Dr. Cesar Young Reflex Criteria: Comment Normal [facility] Comment on above: Result Comment: The HPV DNA reflex criteria were not met with this specimen result therefore, no HPV testing was performed. . Performed By: #### 4 [id number] #### [facility] [address] [place] [address] Dr. Cesar Young Specimen adequacy: Comment Normal [facility] Comment on above: Result Comment: Sati sfactory for evaluation. Endocervical and/or squamous metaplastic cells (endocervical component) are present. Performed By: #### 4 [id number] #### [facility] [address] [place] [address] Dr. Cesar Young XR hand LT min 3V*on 022 XR hand LT min 3V* [facility] [place] [address] [place] [address] XRay Report Signed Patient: Vianey Chen MR#: [id number] 0 : 1995 Acct:[id number] Age/Sex: 26 / F ADM Date: 08/17/21 Loc: XDUCLY Room: Type: [facility] Attending Dr: Julieth HERNANDEZ Copies to: DAVID [...] Ailin Borrego M.D.08/17/2021 2:53 PM Dictation Location: [place] [address] Transcribed By: [facility] 08/17/21 1453 Dictated By: Ailin Borrego MD 08/17/21 145 Signed By: 08/17/211452 Normal [facility] XR hand LT min 3V* [facility] [employer] Other XR hand LT min 3V* [facility] [email or web address] Other XR hand LT min 3V* [address] [place] [address] [email or web address] Other XR hand LT min 3V* [place] [address] [email or web address] Other XR hand LT min 3V* XRay Report [email or web address] Other XR hand LT min 3V* Signed [email or web address] Other XR hand LT min 3V* Patient: Vianey Chen MR#: [id number] [email or web address] Other XR hand LT min 3V* 0 [email or web address] Other XR hand LT min 3V* : 1995 Acct:[id number] [email or web address] Other XR hand LT min 3V* Age/Sex: 26 / F ADM Date: 08/17/21 [email or web address] Other XR hand LT min 3V* Loc: XDUCLY Room: Type: REG CLI [email or web address] Other XR hand LT min 3V* Attending Dr: Julieth HERNANDEZ [email or web address] Other XR hand LT min 3V* Copies to: DAVID Salmeron [email or web address] Other XR hand LT min 3V* Ordering Provider: DAVID Salmeron [email or web address] Other XR hand LT min 3V* Date of Service: 08/17/21 [email or web address] Other XR hand LT min 3V* XR/XR hand LT min 3V*: Pain of left thumb [email or web address] Other XR hand LT min 3V* LEFT HAND - 4 views [email or web address] Other XR hand LT min 3V* CLINICAL DATA: Patient injured left hand yesterday and has bruising, pain and swelling over the [email or web address] Other XR hand LT min 3V* metacarpal phalangea l joint of the thumb and at the distal first metacarpal [email or web address] Other XR hand LT min 3V* COMPARISON: None [email or web address] Other XR hand LT min 3V* AP, lateral and oblique views were obtained along with a supplemental lateral view at the thumb. [email or web address] Other XR hand LT min 3V* There is no evidence of fracture or dislocation. There are no significant soft tissue [email or web address] Other XR hand LT min 3V* abnormalities. No rt [employer] Other XR hand LT min 3V* XR/XR hand LT min 3V* [email or web address] Other XR hand LT min 3V* IMPRESSION: [email or web address] Other XR hand LT min 3V* NO ACUTE BONY INJURY. [email or web address] Other XR hand LT min 3V* Impression dictated by: Ailin Borrego M.D.08/17/2021 2:53 PM [email or web address] Other XR hand LT min 3V* Dictation Location: RADIO-PC-13 [email or web address] Other XR hand LT min 3V* Transcribed By: PWS 08/17/21 1453 [email or web address] Other XR hand LT min 3V* Dictated By: Ailin Borrego MD 08/17/21 [facility] [email or web address] Other XR hand LT min 3V* Signed By: [email or web address] Other XR hand LT min 3V* 08/17/21 1453 Nor [employer] Other PREG HCG QUALon 06-04-2021 , QUAL Negative Normal NEGATIVE [facility] Comment on above: Performed By: #### P REG #### [facility] [address] [address] [address] Cesar Young Covid-19 PCR (CVDTB)on SARS-CoV-2 (COVID-19) RNA ANNABELLE+probe Ql (Unsp spec) Not detected Normal NOT DETECTED [facility] Comment on above: Result Comment: This test is not yet approved or cleared by the [place] FDA. When there are no FDA-approved or cleared tests available, and other criteria are met, FDA can make tests available under an emergency access mechanism called an Emergency Use Authorization (EUA). The EUA for this test is supported by the [employer] of Health and Human Service's (HHS's) declaration [...] SARS-CoV-2. Performed By: #### C VDTB #### [facility] [address] [place], [place] [address] Dr. Cesar Young [id number] 03-28-2021 SARS-CoV-2 (COVID-19) RNA ANNABELLE+probe Ql (Unsp spec) Normal [facility] Comment on above: Performed By: #### C OVID #### [employer] [facility] [place] [address] Sweatband Cutting Machine Operator: Vijay Tinsley MD SARS-CoV-2 (COVID-19) RNA ANNABELLE+probe Ql (Unsp spec) Detected Abnormal NOTDET [facility] Comment on above: Result Comment: The [...] this assay. Fact sheet for Healthcare Providers: https://www.fda.gov/media/705303/download Fact sheet for Patients: https://www.fda.gov/media/004614/download METHODOLOGY: RT-PCR Results reported to the appropriate Health Department Performed By: #### C OVID #### [employer] [address] [place] [address] Sweatband Cutting Machine Operator: Vijay Tinsley MD [id number] 03-27-2021 SARS-CoV-2 (COVID-19) RNA ANNABELLE+probe Ql (Unsp spec) NOT REPORTED Normal [facility] Comment on above: Performed By: #### C OVID #### [employer] [address] [place] [address] Sweatband Cutting Machine Operator: Vijay Tinsley MD CBC Auto Differentialon 04-01 Basophils (Bld) [#/Vol] 0.10 10*3/uL [employer] Phone: Basophils/100 WBC (Bld) 1 % 0 - 2 % [employer] Phone: Differential Type NOT REPORTED [employer] Phone: Eosinophils (Bld) [#/Vol] 0.20 10*3/uL [employer] Phone: Eosinophils/100 WBC (Bld) 2 % 0 - 4 % [employer] Phone: Erythrocyte distribution width (RBC) [Ratio] 13.9 % 11.5 - 14.9 % [employer] Phone: Hematocrit (Bld) [Volume fraction] 43.1 % 36 - 46 % [employer] Phone: Hemoglobin (Bld) [Mass/Vol] 14.2 g/dL 12 - 16 g/dL [employer] Phone: Lymphocytes (Bld) [#/Vol] 2.10 10*3/uL [employer] Phone: Lymphocytes/100 WBC (Bld) 25 % 24 - 44 % [employer] Phone: MCH (RBC) [Entitic mass] 28.7 pg 26 - 34 pg [employer] Phone: MCHC (RBC) [Mass/Vol] 33.0 g/dL 31 - 37 g/dL [employer] Work Phone: MCV (RBC) [Entitic vol] 87.2 fL 80 - [address] [facility] [employer] Work Phone: Monocytes (Bld) [#/Vol] 0.60 10*3/uL [facility] [employer] Work Phone: Monocytes/100 WBC (Bld) 7 % 1 - 7 % [facility] [employer] Work Phone: Platelet mean volume (Bld) [Entitic vol] 7.7 fL 6 - [address] [facility] [employer] Work Phone: Platelets (Bld) [#/Vol] 359 10*3/uL [facility] [employer] Work Phone: Platelets (Bld) [#/Vol] NOT REPORTED [facility] [employer] Work Phone: RBC (Bld) [#/Vol] 4.94 10*6/uL 4 - 5.2 m/uL [facility] [employer] Work Phone: RBC morphology finding Nom (Bld) NOT REPORTED [facility] [employer] Work Phone: Segmented neutrophils/100 WBC (Bld) 65 % 36 - 66 % [facility] [employer] Work Phone: Segs Absolute 5.40 [employer] [facility] Work Phone: WBC (Bld) [#/Vol] NOT REPORTED per 100 WBC [facility] [employer] Work Phone: WBC (Bld) [#/Vol] 8.4 10*3/uL [facility] [employer] Work Phone: WBC Morphology NOT REPORTED [facility] Work Phone: Comprehensive Metabolic Pane dawit 04-24-2020 Albumin [Mass/Vol] 3.9 g/dL 3.5 - 5.2 g/dL [facility] [employer] Work Phone: Albumin/Globulin [Mass ratio] NOT REPORTED [facility] [employer] Work Phone: ALP [Catalytic activity/Vol] 59 U/L 35 - 104 U/L [employer] Phone: ALT [Catalytic activity/Vol] 19 U/L 5 - 33 U/L [employer] Phone: Anion gap [Moles/Vol] 10 mmol/L 9 - 17 mmol/L [employer] Phone: AST [Catalytic activity/Vol] 15 U/L <32 [employer] Phone: Bilirubin Ql (U) <0.15 Low 0.3 - 1.2 mg/dL [employer] Phone: Bun/Cre Ratio NOT REPORTED [employer] [facility] Work Phone: Calcium [Mass/Vol] 9.2 mg/dL 8.6 - 10. 4 mg/dL [employer] Phone: Chloride [Moles/Vol] 104 mmol/L 98 - 107 mmol/L [employer] Phone: CO2 [Moles/Vol] 25 mmol/L 20 - 31 mmol/L [employer] Phone: Creatinine [Mass/Vol] 0.68 mg/dL 0.5 - 0.9 mg/dL [employer] Phone: GFR >60 >60 mL/min [employer] Phone: GFR Non- >60 >60 mL/min [employer] Phone: GFR/1.73 sq M predicted among non-blacks MDRD (S/P/Bld) [Vol rate/Area] [employer] Phone: Comment on above: Average GFR for 20-2 9 years old: 116 mL/min/1.73sq m Chronic Kidney Disease: <60 mL/min/1.73sq m Kidney failure: <15 mL/min/1.73sq m eGFR calculated using average adult body mass. Additional eGFR calculator available at: http://www.[employer].com/multiple_crcl_2012.htm GFR/1.73 sq M predicted among non-blacks MDRD (S/P/Bld) [Vol rate/Area] NOT REPORTED [employer] Phone: Glucose [Mass/Vol] 135 mg/dL High 70 - 99 mg/dL [facility] [employer] Phone: Interpretation and review of laboratory results Abnormal [facility] Phone: Potassium [Moles/Vol] 3.7 mmol/L 3.7 - 5.3 mmol/L [facility] Phone: Protein [Mass/Vol] 7.1 g/dL 6.4 - 8.3 g/dL [employer] Phone: Sodium [Moles/Vol] 139 mmol/L 135 - 144 mmol/L [facility] Phone: Urea nitrogen [Mass/Vol] 11 mg/dL 6 - 20 mg/dL [facility] Phone: Otheron 04-24-2020 Immature granulocytes (Bld) [#/Vol] NOT REPORTED 0 % [employer] Phone: US GALLBLADDER RUQon 04-24- 021 Unremarkable right upper quadrant ultrasound. [employer] Phone: EXAMINATION: RIGHT UPPER QUADRANT ULTRASOUND 04/24/2020 [...] No evidence of right upper quadrant ascites. [employer] Phone: Erick, M[employer] Incoming Radiant Results From [facility] - 04/24/2020 8:18 AM EST EXAMINATION: RIGHT [...] ascites. IMPRESSION: Unremarkable right upper quadrant ultrasound. [employer] Work Phone: Vital Signs Date Time Vital Sign Value Performing Clinician Facility 04-14-2023 10:54-0500 Body mass index (BMI) [Ratio] 44.14 kg/m2 shoutr Phone: [facility] [employer] 04-14-2023 10:54-0500 Body weight 102.51 kg shoutr Phone: [facility] [employer] 04-14-2023 10:54-0500 Diastolic blood pressure 70 mm[Hg] shoutr Phone: [facility] [employer] 04-14-2023 10:54-0500 Systolic blood pressure 120 mm[Hg] shoutr Phone: [facility] [employer] 04-12-2022 10:30-0500 Body height 152.4 cm Julieth Winkler Other [email or web address] Other 04-12-2022 10:30-0500 Body mass index (BMI) [Ratio] 41.59 kg/m2 Julieth Winkler Other [email or web address] Other 04-12-2022 10:30-0500 Body temperature 98.5 [degF] Julieth Winkler Other [email or web address] Other 04-12-2022 10:30-0500 Body weight 96.62 kg Julieth Winkler Other [email or web address] Other 04-12-2022 10:30-0500 Diastolic blood pressure 87 mm[Hg] Julieth Winkler Other [email or web address] Other 04-12-2022 10:30-0500 Respiratory rate 18 /min Julieth Winkler Other [email or web address] Other 04-12-2022 10:30-0500 SaO2% (BldA) [Mass fraction] 98 % Julieth Winkler Other [email or web address] Other 04-12-2022 10:30-0500 Systolic blood pressure 141 mm[Hg] Julieth Winkler Other [email or web address] Other 11-30-2021 17:00-0400 Body height 152.4 cm Jammie Mara Other [email or web address] Other 11-30-2021 17:00-0400 Body mass index (BMI) [Ratio] 39.06 kg/m2 Jammie Terry Other [email or web address] Other 11-30-2021 17:00-0400 Body temperature 97.6 [degF] Jammie Terry Other [email or web address] Other 11-30-2021 17:00-0400 Body weight 90.72 kg Jammie Terry Other [email or web address] Other 11-30-2021 17:00-0400 Diastolic blood pressure 84 mm[Hg] Jammie Terry Other [email or web address] Other 11-30-2021 17:00-0400 Respiratory rate 18 /min Jammie Terry Other [email or web address] Other 11-30-2021 17:00-0400 SaO2% (BldA) [Mass fraction] 99 % Jammie Terry Other [email or web address] Other 11-30-2021 17:00-0400 Systolic blood pressure 132 mm[Hg] Jammie Terry Other [email or web address] Other 11-11-2021 10:30-0400 Body height 152.4 cm Julieth Winkler Other [email or web address] Other 11-11-2021 10:30-0400 Body mass index (BMI) [Ratio] 37.1 kg/m2 Julieth Winkler Other [email or web address] Other 11-11-2021 10:30-0400 Body temperature 98.1 [degF] Julieth Winkler Other [email or web address] Other 11-11-2021 10:30-0400 Body weight 86.18 kg Julieth Agarwalmond Other [email or web address] Other 11-11-2021 10:30-0400 Respiratory rate 18 /min Julieth Agarwalmond Other [email or web address] Other 11-11-2021 10:30-0400 SaO2% (BldA) [Mass fraction] 99 % Julieth Agarwalmond Other [email or web address] Other 06-20-2022 14:55-0400 Body height 152.4 cm Julieth Winkler Other [email or web address] Other 08-17-2021 14:55-0400 Body mass index (BMI) [Ratio] 39.84 kg/m2 Julieth Winkler Other [email or web address] Other 08-17-2021 14:55-0400 Body temperature 97.8 [degF] Julieth Winkler Other [email or web address] Other 08-17-2021 14:55-0400 Body weight 92.53 kg Julieth Winkler Other [email or web address] Other 08-17-2021 14:55-0400 Diastolic blood pressure 74 mm[Hg] Julieth Agarwalmond Other [email or web address] Other 08-17-2021 14:55-0400 Respiratory rate 18 /min Julieth Winkler Other [email or web address] Other 08-17-2021 14:55-0400 SaO2% (BldA) [Mass fraction] 99 % Julieth Winkler Other [email or web address] Other 08-17-2021 14:55-0400 Systolic blood pressure 134 mm[Hg] Julieth Winkler Other [email or web address] Other Encounters Encounter Date Encounter Type Care Provider Facility Start: 05-12-2023 End: 05-12-2023 ambulatory AUBREY CYR Not Available Start: 04-14-2023 End: 04-14-2023 ambulatory KATHY PERRY Not Available Start: 04-14-2023 End: 04-14-2023 Patient encounter procedure Kathy Perry DO Work Phone: [facility] Start: 04-14-2023 End: 04-14-2023 Periodic preventive med est patient 18-39 yrs Kathy Perry DO Work Phone: [facility] Comment on above: Well woman exam with routine gynecological exam; Exposure to STD; Encounter for anatomic survey; Need for maternal serum alpha-protein (MSAFP) screening; Second trimester Start: 03-17-2023 End: 03-17-2023 ambulatory KATHY PERRY Not Available Start: 02-17-2023 End: 02-17-2023 ambulatory KATHY PERRY Not Available Start: 04-12-2022 End: 04-12-2022 ambulatory Julieth Winkler Other [email or web address] Other Start: 04-12-2022 Office outpatient vi sit 15 minutes Julieth Cathi [facility] Start: 02-12-2022 End: 02-15-2022 ambulatory [facility] Start: 02-12-2022 End: 02-14-2022 Subsequent hospital visit by physician [facility] Nurse 1 [facility] Special Procedures Comment on above: Tear of left acetabu lar labrum, initial encounter Start: 11-30-2021 End: 11-30-2021 ambulatory Jammie Terry Other [email or web address] Other Start: 11-30-2021 Office outpatient vi sit 15 minutes Jammie Terry [facility] Start: 11-11-2021 End: 11-11-2021 ambulatory Julieth Winkler Other [email or web address] Other Start: 11-11-2021 Office outpatient vi sit 15 minutes Julieth Cathi [facility] Start: 08-17-2021 End: 08-17-2021 ambulatory Julieth Winkler Other [email or web address] Other Start: 08-17-2021 Office outpatient vi sit 15 minutes Julieth Cathi [facility] Start: 08-12-2021 End: 08-12-[address] KATHY PERRY Facility:[facility] Start: 06-04-2021 Encounter for preprocedural laboratory examination ANA SOMERS [facility] Start: 06-04-2021 End: 06-04-2021 ambulatory ANA SOMERS Facility:[facility] Start: 06-02-2021 End: 06-03-2021 ambulatory ANA [facility] Facility:[facility] Start: 06-02-2021 End: 06-03-2021 Encounter for preprocedural laboratory examination ANA SOMERS Facility:[facility] Start: 07-01-2020 End: 07-01-2020 Patient encounter procedure PHYSICIAN NO FAMILY -Ultrasound [place] Start: 06-27-2020 End: 06-27-2020 Patient encounter procedure [facility]ICIAN [facility] Start: 04-24-2020 End: 04-24-2020 Subsequent hospital visit by physician Mirna FERNÁNDEZ Laboratory Comment on above: RUQ pain Start: 04-24-2020 End: 04-26-2020 Subsequent hospital visit by physician Reinier [facility] Rm 105 [facility] Ultrasound Comment on above: RUQ pain Start: 05-26-2015 End: 11-24-2017 Patient encounter status [facility] 104 [facility] Procedures Date Procedure Procedure Detail Performing [...] (MSAFP) screening Expected: 04/14/2023 (Approximate), Expires: 05/13/2023 [facility] Comment on above: Expected: 04/14/2023 (Approximate), Expires: 05/13/2023 Start: 04-14-2023 End: 04-14-2024 US for US OB ANATOMY SINGLE W US OB CERVICAL LENGTH Imaging Routine Encounter for anatomic survey Expected: 04/14/2023 (Approximate), Expires: 04/14/2024 [facility] Comment on above: Expected: 04/14/2023 (Approximate), Expires: 04/14/2024 Start: 03-27-2022 Depression Monitoring Depression Mon itoring [employer] Start: 09-28-2021 Influenza vaccination Flu vaccine (# 1) [employer] Start: 04-22-2021 Influenza vaccination Flu vaccine (# 1) [employer] Phone: Comment on above: Postponed from 10/29 (Patient Refused) Start: 04-22-2021 Pneumococcal 0-64 ye ars Vaccine (1 of 1 - PPSV23) Pneumococcal 0-64 years Vaccine (1 of 1 - PPSV23) [employer] Phone: Comment on above: Postponed from 02/19 (Patient Refused) Start: 04-07-2021 DTaP/Tdap/Td vaccine (7 - Td or Tdap) DTaP/Tdap/Td vaccine (7 - Td or Tdap) [employer] Start: 04-07-2021 DTaP/Tdap/Td vaccine (7 - Td) DTaP/Tdap/Td vaccine (7 - Td) [employer] Phone: Start: 07-01-2020 Duplex scan of lower limb veins US venous duplex [facility] Start: 02-20-2016 Screening for malign ant neoplasm of cervix [employer] Start: 2013 Hepatitis C screening Hepatitis C sc reen [facility] [employer] Start: 2010 HIV screening HIV screen [facility] [employer] Start: 2001 Pneumococcal 0-64 ye ars Vaccine (1 - PCV) Pneumococcal 0-64 years Vaccine (1 - PCV) [facility] Start: 1995 COVID-19 Vaccine (#1) COVID-19 Vacci ne (#1) [facility] Start: 1995 Hepatitis C screening Hepatitis C sc jyothi [employer] Phone: CHLAMYDIA TRACHOMATI S (GENITO/STI) CHLAMYDIA TRACHOMATIS (GENITO/STI) Lab Routine Exposure to STD Ordered: 04/14/2023 [facility] Healthcare Comment on above: Ordered: 04/14/2023 Cytology Cervical or vaginal smear or scraping study Pap Smear Pathology and Cytology Routine Well woman exam with routine gynecological exam Ordered: 04/14/2023 [facility] [employer] Work Phone: Comment on above: Ordered: 04/14/2023 End: 02-12-2022 IR INJ ARTHROGRAM HIP LEFT IR INJ ARTHROGRAM HIP LEFT Imaging Routine Tear of left acetabular labrum, initial encounter 1 Occurrences starting 02/12/2022 until 02/12/2022 [facility] [employer] Phone: Comment on above: 1 Occurrences starti ng 02/12/2022 until 02/12/2022 Neisseria gonorrhoea e DNA [Presence] in Unspecified specimen by ANNABELLE with probe detection Neisseria gonorrhea DNA probe, direct Lab Routine Exposure to STD Ordered: 04/14/2023 [facility] Healthcare Comment on above: Ordered: 04/14/2023 SURESWAB(R) ADVANCED VAGINITIS PLUS, TMA SURESWAB(R) ADVANCED VAGINITIS PLUS, TMA Pathology and Cytology Routine Exposure to STD Ordered: 04/14/2023 [facility] Healthcare Comment on above: Ordered: 04/14/2023 Immunizations Immunization Date Immunization Notes Care Provider Parker rodrigues 04-07-2011 human papilloma viru s vaccine, quadrivalent [facility] [employer] Phone: 04-07-2011 tetanus toxoid, redu julia diphtheria toxoid, and acellular pertussis vaccine, adsorbed [employer] Phone: 02-04-2010 influenza virus vacc ine, unspecified formulation [facility] Phone: 12-23-2009 human papilloma viru s vaccine, quadrivalent [facility] [employer] Phone: 12-23-2009 meningococcal ACWY vaccine, unspecified formulation [facility] [employer] Phone: 04-23-2009 human papilloma viru s vaccine, quadrivalent [facility] Work Phone: 10-21-2000 diphtheria, tetanus toxoids and acellular pertussis vaccine [facility] [employer] Phone: 10-21-2000 measles, mumps and r ubella virus vaccine [facility] Phone: 07-25-1997 diphtheria, tetanus toxoids and acellular pertussis vaccine [facility] [employer] Phone: 07-25-1997 hepatitis B vaccine, adult dosage [facility] [address] [facility] Work Phone: 07-25-1997 hepatitis B vaccine, unspecified formulation [facility] Phone: 07-25-1997 Hib, unspecified [facility] Work Phone: 07-19-1997 poliovirus vaccine, unspecified formulation [facility] Phone: 09-27-1996 diphtheria, tetanus toxoids and acellular pertussis vaccine [facility] [employer] Phone: 09-27-1996 Hib, unspecified [facility] Work Phone: 09-27-1996 measles, mumps and r ubella virus vaccine [facility] Phone: 09-27-1996 poliovirus vaccine, unspecified formulation [facility] [employer] Phone: 1995 diphtheria, tetanus toxoids and acellular pertussis vaccine [employer] Phone: 1995 Hib, unspecified [facility] Work Phone: 1995 poliovirus vaccine, unspecified formulation [employer] Phone: 1995 diphtheria, tetanus toxoids and acellular pertussis vaccine [employer] Phone: 1995 hepatitis B vaccine, adult dosage [facility] [address] [facility] [employer] Work Phone: 1995 hepatitis B vaccine, unspecified formulation [employer] Phone: 1995 Hib, unspecified [facility] Work Phone: 1995 poliovirus vaccine, unspecified formulation [employer] Phone: 1995 hepatitis B vaccine, adult dosage [facility] [address] [facility] [email or web address] Phone: 1995 hepatitis B vaccine, unspecified formulation [employer] Phone: Payers Date Payer Category Payer Unknown BCBS BCBS [id number] 2022-Present [phone] [address] [place] [address] [id number] 1995 Unknown [id number] 1995 Unknown [id number] 1995 Unknown [id number] 1995 Unknown [id number] 1995 Unknown [id number] 1995 Unknown [id number] 1995 Unknown [id number] 1995 Unknown [id number] 1995 Unknown [id number] 1959 Unknown [id number] Self-pay Self Pay [id number] Unknown Self Pay [id number] Unknown Self Pay [id number] Social History Date Type Detail Facility Start: 02-28-2007 End: 08-14-2022 Tobacco smoking status [facility] Current every day smoker [facility] [employer] Start: 02-28-2007 History of tobacco use Cigarette Smo ker [employer] Phone: Start: 04-22-2020 End: 08-14-2022 Cigarettes smoked current (pack per day) - Reported [employer] Phone: Start: 04-22-2020 End: 12-16-2021 Tobacco use and exposure Never used [employer] Phone: Start: 04-22-2020 End: 03-17-2023 Alcohol intake Current drinker of alcohol (finding) [employer] Phone: Start: 03-24-2015 Alcohol Comment occasional [employer] Work Phone: Start: 1995 Sex Assigned At Not on file M [employer] Work Phone: Start: 1995 Sex Assigned At Female F [facility] Start: 08-14-2022 Sex Assigned At N [place] Other Start: 02-03-2022 History SDOH Physica l Activity DPW 0 [facility] [employer] Work Phone: Start: 03-27-2021 History SDOH Financial 5 [facility] [employer] Work Phone: Start: 02-03-2022 History SDOH IPV Fear 2 B ON [employer] Work Phone: Start: 03-27-2021 History SDOH Food Worry 1 [facility] [email or web address] Phone: Start: 01-26-2022 End: 02-05-2022 Exposure to SARS-CoV-2 (event) Not sure [facility] [employer] Start: 08-14-2022 Alcohol Comment 1-2 drinks les [...] nursing note reviewed. Exam conducted with a retail zone specialist present. Vitals: Estimated body mass index is [...] her MSAFP order do have done at [facility]. Documented by Lauren Crystal MA on behalf of: Kathy Perry DO documented in this encounter [facility] 04-12-2022 Evaluation note Encounter Date Diagnosis [...] left ear, unspecified type (ICD-10 - H60.502) [email or web address] Other 12-16-2022 History of Present illness Narrative* Analia Sin RN - 02/12/2022 8:30 AM EST Patient tolerated left hip injections without distress. Dry dressing to site. Patient to MRI for further imaging. [facility] [employer] Work Phone: [phone] 144-648810-03-2022 Evaluation note* Encounter Date Diagnosis Assessment Notes Treatment Notes Treatment Clinical Notes Nov, Tattoo reaction (ICD-10 - L92.3) Use medication as directed. complete all doses. Recommend unscented soap to [facility] [email or web address] Other 09-14-2022 Evaluation note* Encounter Date Diagnosis [...] no improvement in 2 to 3 days. [email or web address] Other 06-20-2022 Evaluation note* Encounter Date Diagnosis [...] days, Tendonitis home care material was printed [email or web address] Other Evaluation noteNo Assessments Information Available [facility] Diagnosis Tear of left acetabular labrum, initial encounter documented in this encounter [facility] [email or web address] Phone: evaluation note* Diagnosis Well woman exam with routine gynecological exam Routine gynecological examination Exposure to STD Encounter for anatomic survey Need for maternal serum alpha-protein (MSAFP) screening Second trimester state, incidental documented [facility] - Reported* Type Description Date Surgical History laparoscopy female Surgical History appendectomy Surgical History bronchoscopy [email or web address] Other History general Narrative - Reported* Type Description Date Medical History Esophageal reflux Surgical History laparoscopy female Surgical History appendectomy Surgical History bronchoscopy [email or web address] Other Hospital Discharge instructions* Attachments The following attachments cannot be sent through Care Everywhere. 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 ACP-Advance Directive [employer] Advance Directive Response Recorded Date/ Time Advance Directives No October 09, 2017 12:18pm Reason for Referral Status Reason Specialty Diagnoses / Procedures Referre d By Contact Referred To Contact Closed Radiology Diagnoses RUQ pain Procedures [place] [address] [place] [address] Specialty Diagnoses / Procedures Referred By Contac t Referred To Contact Radiology Diagnoses Tear of left acetabular labrum, initial encounter Procedures IR [place] [address] [place] [address] Referral ID Status Reason Start Date Expiration Date Visits Re quested Visits Authorized [id number] Closed 02/12/2022 02/12/2023 1 1 Specialty Diagnoses / Procedures Referred By Anupama t Referred To Contact Radiology Diagnoses Tear of left acetabular labrum, initial encounter S73.192A (ICD-10-CM) - Tear of left acetabular labrum, initial encounter Procedures IR INJ ARTHROGRAM HIP LEFT CT INJECTION HIP ARTHROGRAM [id number] - CT INJECTION HIP ARTHROGRAM Elicia Gonzalez PA [address] [place] [id number] Referral ID Status Reason Start Date Expiration Date Visits Re quested Visits Authorized [id number] Closed 02/05/2022 02/05/2023 1 1 Chief Complaint and Reason for Visit Chief Complaint Tenderness of left c assisted Summary Purpose Family History No Family History Records FoundNo Family History Records FoundNo Family History Records FoundNo Family History Records FoundNo Family History Records Found Additional Source Comments Reason for Visit (unrecogniz ed section and content) Status Reason Specialty Diagnoses / Procedures Referre d By Contact Referred To Contact Closed Radiology Diagnoses RUQ pain Procedures [place] [address] [place] [address] Specialty Diagnoses / Procedures Referred By Anupama t Referred To Contact Radiology Diagnoses Tear of left acetabular labrum, initial encounter S73.192A (ICD-10-CM) - Tear of left acetabular labrum, initial encounter Procedures IR INJ ARTHROGRAM HIP LEFT CT INJECTION HIP ARTHROGRAM - CT INJECTION HIP ARTHROGRAM Elicia Gonzalez PA [address] [place] [id number] Referral ID Status Reason Start Date Expiration Date Visits Re quested Visits Authorized [id number] Closed 02/05/2022 02/05/2023 1 1 Reason Comments Routine Visit INFORMATION SOURCE (unrecogn ized section and content) DATE CREATED AUTHOR 03/29/2021 [place] DATE CREATED AUTHOR AUTHOR'S ORGANIZ ATION 08/17/2021 [facility] DATE CREATED AUTHOR AUTHOR'S ORGANIZ ATION 08/18/2021 [facility] DATE CREATED AUTHOR AUTHOR'S ORGANIZ ATION 02/18/2022 [facility] DATE CREATED AUTHOR AUTHOR'S ORGANIZ ATION 05/13/2023 [facility] [employer] Care Teams (unrecognized sec tion and content) Weatherse[employer] Technician Relationship Specialty [place] [address] [facility] [place] [place] [address] [place] [address] PCP - General Family Medicine 03/11/15 FOR [...] BE BASED ON THE PRIMARY CLINICAL RECORDS. [employer] provides no warranty or guarantee of the accuracy or completeness of information in this document.
== END 2023-06-14 08:44 | disposition home or self-care (01) ==
LOC: NOMS 08:44
PROVIDERS: Visit Provider Obstetrics & Gynecology
DX: Z36.2 Encounter for other antenatal screening follow-up (principal); O35.HXX0 Maternal care for other (suspected) fetal abnormality and damage, fetal lower extremities anomalies, not applicable or unspecified; Z3A.25 25 weeks gestation of pregnancy
CPT/HCPCS: 76816

== ENCOUNTER 2023-06-23 10:09 | Outpatient (OUT) | payer BC, SELFPAY ==
--- OUTSIDE RECORDS SUMMARY | 2023-06-23 10:30 | XMS_ITS | CCD ---
Author Organization [facility] Care Team Providers Care Hired Worker Name Role Phone Mirna Bennett Primary Care Provider NO FAMILY, PHYSICIAN Primary Care Provider Unava ilJammie Bhatti Attending Provider [phone] Mirna Bennett Primary Care Provider SAMSA ANA Admitting Unavailable SAMSA, ANA Attending Unavailable SAMSA, ANA Consulting Unavailable SAMSA, ANA Admitting Unavailable SAMSA ANA Attending Unavailable SAMSAANA Consulting Unavailable AGUBOSIM, KELSEY Consulting Unavailable RAADYARITZA Bagley Consulting Unavailable DR KATHY PERRY Admitting Unavailable VICKY, DR CHAVEZ Attending Unavailable VICKY, DR CHAVEZ Consulting Unavailable Julieth Winkler Unavailable Jammie Terry Unavailable Rehan RIVERA, Mirna Jacobs Primary Care Provider ELICIA GONZALEZ Referring Unavailable MIRNA BENNETT Primary Care Unavailable ELICIA GONZALEZ Referring Unavailable MIRNA BENNETT Primary Care Unavailable Unavailable Primary Care Provider UnavailKATHY Stapleton Attending Unavailable KATHY PERRY Attending Unavailable AUBREY CYR Attending Unavailable KATHY PERRY Attending Unavailable Allergies Allergy Classification Reported Allergen(s) Allergy Type Date of Onset Reaction(s) Facility (2 sources) Amoxicillin-Pot Clavulanate Propensity to adverse reactions to drug 11-17-19 17 Other (See Comments) [facility] [employer] Phone: (3 sources) Bismuth-Containin g Compounds Propensity to adverse reactions to drug 03-24-19 16 Hives [facility] Phone: (1 source) bismuth subsalicylate Drug Allergy 10-10-19 18 [facility] Repository (5 sources) bismuth subsalicylate Drug Allergy 12-03-19 21 hives, Other (See Comments) [facility] (2 sources) bismuth subsalicylate Drug Allergy 12-03-19 [...] 3 12/17/2019 Active 21 day ethinyl estradiol 0.914989 mg/hr / etonogestrel 0.005 mg/hr vaginal system (7 sources) Progestin, Estrogen Start: 06-13-2018 NUVARING 0.12-0.015 MG/24HR vaginal ring NuvaRing Active fluocinonide 0.5 mg/ml topical cream (2 sources) Corticosteroid Start: 07-24-2019 fluocinonide (LIDEX) 0.05 % cream Apply topically 2 times daily. 60 g 1 07/24/2019 Active hydrocortisone 10 mg/ml / neomycin 3.5 mg/ml / polymyxin b 85227 unt/ml otic suspension (1 source) Aminoglycoside Antibacterial, Polymyxin-class Antibacterial, Corticosteroid Start: 04-12-2022 Agodrnty-Yjaxjmnqh-OS 3.5-81517-8 3 drops left ear Three times a [...] UA Negative Negative - 4(70) +++ mg/dL [facility] Blood, UA Negative Negative - 50 Bill/mcL [facility] Clarity, UA Clear [facility] Color, UA Yellow [facility] Glucose, UA Negative Negative - 1999(110) ++++ mg/dL [facility] Interpretation and review of laboratory results Abnormal [facility] Ketones, UA Positive Negative - 160(16) ++++ mg/dL [facility] Comment on above: 40 mg Leukocytes, UA Negative Negative - 500+++ Simon/mcL [facility] Nitrite, UA Negative Negative - Positive [facility] pH, UA 7.0 5 - 9 [facility] Protein, UA Trace Negative - 2000(20) ++++ mg/dL [facility] Spec Grav, UA 1.025 1 - 1.03 [facility] Urobilinogen, UA 0.2 0.2 - 12 mg/dL [facility] IR INJ ARTHROGRAM HIP LEFTon 02-13-2022 IR INJ ARTHROGRAM HIP LEFT EXAMINATION: FLUOROSCOPIC GUIDED LEFT HIP ARTHROGRAM, 02/12/2022 8:45 am COMPARISON: None. HISTORY: ORDERING SYSTEM PROVIDED HISTORY: Tear of left acetabular labrum, initial encounter TECHNOLOGIST PROVIDED HISTORY: Is the patient ?->No FLUOROSCOPY DOSE AND TYPE OR TIME AND EXPOSURES: 54 seconds; D AP 83 cGy cm2 PROCEDURE: FUSELAGE FRAMER: Gaudencio Chávez MD Informed consent was obtained [...] Gaudencio Chávez MD 02/12/22 Final result Normal [facility] IR INJ ARTHROGRAM HIP LEFTon 02-12-2022 Successful fluoroscopic-guided left hip arthrogram. Patient was transferred to MRI for further imaging. [facility] EXAMINATION: FLUOROSCOPIC GUIDED LEFT HIP ARTHROGRAM, 02/12/2022 8:45 am COMPARISON: None. HISTORY: ORDERING SYSTEM PROVIDED HISTORY: Tear of left acetabular labrum, initial encounter TECHNOLOGIST PROVIDED HISTORY: Is the patient ?->No FLUOROSCOPY DOSE AND TYPE OR TIME AND EXPOSURES: 54 seconds; D AP 83 cGy cm2 PROCEDURE: FUSELAGE FRAMER: Gaudencio Chávez MD Informed consent was obtained [...] is sent for subsequent MRI. EBL: None [facility] Gaudencio Chávez MD - 02/12/2022 EXAMINATION: FLUOROSCOPIC GUIDED LEFT HIP ARTHROGRAM, 02/12/2022 8:45 am COMPARISON: None. HISTORY: ORDERING SYSTEM PROVIDED HISTORY: Tear of left acetabular labrum, initial encounter TECHNOLOGIST PROVIDED HISTORY: Is the patient ?->No FLUOROSCOPY DOSE AND TYPE OR TIME AND EXPOSURES: 54 seconds; D AP 83 cGy cm2 PROCEDURE: FUSELAGE FRAMER: Gaudencio Chávez MD Informed consent was obtained [...] was transferred to MRI for further imaging. [employer] Phone: Radiology Study observation (narrative) [facility] Phone: IR INJ ARTHROGRAM HIP LEFTOr dered By: Gaudencio Chávez on 02-12-2022 [employer] [facility] Phone: MRI HIP LEFT W CONTRASTon MRI [...] Anthony Villanueva MD 02/12/22 Final result Normal [facility] SARS-CoV-2 (COVID-19) RNA NA A+probe Ql (Resp)on 11-11-2021 SARS-CoV-2 (COVID-19) RNA ANNABELLE+probe Ql (Unsp spec) Positive [employer] Other PAP ACOG PANEL 2: 21 to 29on 08-17-2021 . . Normal [facility] Comment on above: Performed By: #### [id number] #### [facility] [address] [address] [address] Cesar Young Age Gdln ACOG Testing 21- Normal [facility] Comment on above: Performed By: #### [id number] #### [facility] [address] [address] [address] Cesar Young DIAGNOSIS: Comment Normal [facility] Comment on above: Result Comment: NEGA TIVE FOR INTRAEPITHELIAL LESION OR MALIGNANCY. Performed By: #### [id number] #### [facility] [address] [address] [address] Cesar Young Methodology: Comment Normal [facility] Comment on above: Result Comment: This liquid based ThinPrep(R) pap test was screened with the use of an image guided system. Performed By: #### [id number] #### [facility] [address] [place] [address] Dr. Cesar Young Note: Comment Normal [facility] Comment on above: Result Comment: The Pap smear is a screening test designed to aid in the detection of premalignant and malignant conditions of the uterine cervix. It is not a diagnostic procedure and should not be used as the sole means of detecting cervical cancer. Both false-positive and false-negative reports do occur. . Performed By: #### [id number] #### [facility] [address] [place] [address] Dr. Cesar Young Performed by: Comment Normal [facility] Comment on above: Result Comment: Linda Taveras Credit Front Office Developer (ASCP) Performed By: #### [id number] #### [facility] [address] [place] [address] Dr. Cesar Young Reflex Criteria: Comment Normal [facility] Comment on above: Result Comment: The HPV DNA reflex criteria were not met with this specimen result therefore, no HPV testing was performed. . Performed By: #### 4 [id number] #### [facility] [address] [place] [address] Dr. Cesar Young Specimen adequacy: Comment Normal [facility] Comment on above: Result Comment: Sati sfactory for evaluation. Endocervical and/or squamous metaplastic cells (endocervical component) are present. Performed By: #### 4 [id number] #### [facility] [address] [place] [address] Dr. Cesar Young XR hand LT min 3V*on 022 XR hand LT min 3V* [facility] Main [place] [address] [place] [address] XRay Report Signed Patient: Vianey Chen MR#: [id number] 0 : 1995 Acct:[id number] Age/Sex: 26 / F ADM Date: 08/17/21 Loc: [facility] Room: Type: [facility] Attending Dr: Julieth HERNANDEZ Copies to: [...] Ailin Borrego M.D.08/17/2021 2:53 PM Dictation Location: [place] [address] Transcribed By: [facility] 08/17/21 1453 Dictated By: Ailin Borrego MD 08/17/21 1451 Signed By: 08/17/21 145 Normal [facility] XR hand LT min 3V* [facility] [employer] Other XR hand LT min 3V* [facility] Main [facility] [employer] Other XR hand LT min 3V* [address] [place] [address] [employer] Other XR hand LT min 3V* [place] [address] [employer] Other XR hand LT min 3V* XRay Report [employer] Other XR hand LT min 3V* Signed [employer] Other XR hand LT min 3V* Patient: Vianey Chen MR#: [id number] [employer] Other XR hand LT min 3V* 0 [employer] Other XR hand LT min 3V* : 1995 Acct:[id number] [employer] Other XR hand LT min 3V* Age/Sex: 26 / F ADM Date: 08/17/21 [employer] Other XR hand LT min 3V* Loc: [facility] Room: Type: REG CLI [employer] Other XR hand LT min 3V* Attending Dr: Julieth HERNANDEZ [employer] Other XR hand LT min 3V* Copies to: DAVID Salmeron [employer] Other XR hand LT min 3V* Ordering Provider: DAVID Salmeron [employer] Other XR hand LT min 3V* Date of Service: 08/17/21 [employer] Other XR hand LT min 3V* XR/XR hand LT min 3V*: Pain of left thumb [employer] Other XR hand LT min 3V* LEFT HAND - 4 views [employer] Other XR hand LT min 3V* CLINICAL DATA: Patient injured left hand yesterday and has bruising, pain and swelling over the [employer] Other XR hand LT min 3V* metacarpal phalangea l joint of the thumb and at the distal first metacarpal [employer] Other XR hand LT min 3V* COMPARISON: None [employer] Other XR hand LT min 3V* AP, lateral and oblique views were obtained along with a supplemental lateral view at the thumb. [employer] Other XR hand LT min 3V* There is no evidence of fracture or dislocation. There are no significant soft tissue [employer] Other XR hand LT min 3V* abnormalities. No rt [employer] Other XR hand LT min 3V* XR/XR hand LT min 3V* [employer] Other XR hand LT min 3V* IMPRESSION: [employer] Other XR hand LT min 3V* NO ACUTE BONY INJURY. [employer] Other XR hand LT min 3V* Impression dictated by: Ailin Borrego M.D.08/17/2021 2:53 PM [employer] Other XR hand LT min 3V* Dictation Location: RADIO-PC-13 [employer] Other XR hand LT min 3V* Transcribed By: GONZALO 08/17/21 1453 [employer] Other XR hand LT min 3V* Dictated By: Ailin Borrego MD 08/17/21 [facility] [employer] Other XR hand LT min 3V* Signed By: [employer] Other XR hand LT min 3V* 08/17/21 1453 Nor [employer] Other PREG HCG QUALon 06-04-2021 , QUAL Negative Normal NEGATIVE [facility] Comment on above: Performed By: #### P REG #### [facility] [address] [place] [address] Dr. Cesar Young [facility]-19 [facility]on SARS-CoV-2 (COVID-19) RNA ANNABELLE+probe Ql (Unsp spec) Not detected Normal NOT DETECTED [facility] Comment on above: Result Comment: This test is not yet approved or cleared by the [place] FDA. When there are no FDA-approved or cleared tests available, and other criteria are met, FDA can make tests available under an emergency access mechanism called an Emergency Use Authorization (EUA). The EUA for this test is supported by the Joint Cutter of Health and Human Service's (HHS's) declaration [...] SARS-CoV-2. Performed By: #### C VDTB #### [facility] [address] [address] [address] Cesar Young [id number] 03-28-2021 SARS-CoV-2 (COVID-19) RNA ANNABELLE+probe Ql (Unsp spec) Normal [facility] Comment on above: Performed By: #### C OVID #### [facility] [employer] [facility] [place] [address] Agent Broker: Vijay Tinsley MD SARS-CoV-2 (COVID-19) RNA ANNABELLE+probe Ql (Unsp spec) Detected Abnormal NOTDET [facility] Comment on above: Result Comment: The [...] this assay. Fact sheet for Healthcare Providers: https://www.fda.gov/media/559574/download Fact sheet for Patients: https://www.fda.gov/media/172426/download METHODOLOGY: RT-PCR Results reported to the appropriate Health Department Performed By: #### C OVID #### [facility] [address] [place], [place] [id number] Agent Broker: Vijay Tinsley MD [id number] 03-27-2021 SARS-CoV-2 (COVID-19) RNA ANNABELLE+probe Ql (Unsp spec) NOT REPORTED Normal [facility] Comment on above: Performed By: #### C OVID #### [facility] [address] [place], [place] [id number] Agent Broker: Vijay Tinsley MD CBC Auto Differentialon 04-01 Basophils (Bld) [#/Vol] 0.10 10*3/uL [facility] Phone: Basophils/100 WBC (Bld) 1 % 0 - 2 % [employer] Phone: Differential Type NOT REPORTED [facility] [facility] Phone: Eosinophils (Bld) [#/Vol] 0.20 10*3/uL [employer] Phone: Eosinophils/100 WBC (Bld) 2 % 0 - 4 % [employer] Phone: Erythrocyte distribution width (RBC) [Ratio] 13.9 % 11.5 - 14.9 % [facility] Phone: Hematocrit (Bld) [Volume fraction] 43.1 % 36 - 46 % [facility] [facility] Phone: Hemoglobin (Bld) [Mass/Vol] 14.2 g/dL 12 - 16 g/dL [facility] Phone: Lymphocytes (Bld) [#/Vol] 2.10 10*3/uL [facility] Phone: Lymphocytes/100 WBC (Bld) 25 % 24 - 44 % [facility] [facility] Phone: MCH (RBC) [Entitic mass] 28.7 pg 26 - 34 pg [facility] [facility] Phone: MCHC (RBC) [Mass/Vol] 33.0 g/dL 31 - 37 g/dL [facility] Phone: MCV (RBC) [Entitic vol] 87.2 fL 80 - 100 fL [facility] Phone: Monocytes (Bld) [#/Vol] 0.60 10*3/uL [facility] [employer] Work Phone: Monocytes/100 WBC (Bld) 7 % 1 - 7 % [facility] [employer] Work Phone: Platelet mean volume (Bld) [Entitic vol] 7.7 fL 6 - 12 fL [facility] [employer] Work Phone: Platelets (Bld) [#/Vol] 359 10*3/uL [facility] [employer] Work Phone: Platelets (Bld) [#/Vol] NOT REPORTED [facility] [employer] Work Phone: RBC (Bld) [#/Vol] 4.94 10*6/uL 4 - 5.2 m/uL [facility] [employer] Work Phone: RBC morphology finding Nom (Bld) NOT REPORTED [facility] [employer] Work Phone: Segmented neutrophils/100 WBC (Bld) 65 % 36 - 66 % [facility] [employer] Work Phone: Segs Absolute 5.40 [facility] Work Phone: WBC (Bld) [#/Vol] NOT REPORTED per 100 WBC [facility] [employer] Work Phone: WBC (Bld) [#/Vol] 8.4 10*3/uL [facility] [employer] Work Phone: WBC Morphology NOT REPORTED [facility] Work Phone: Comprehensive Metabolic Pane dawit 04-24-2020 Albumin [Mass/Vol] 3.9 g/dL 3.5 - 5.2 g/dL [facility] [employer] Work Phone: Albumin/Globulin [Mass ratio] NOT REPORTED [facility] [employer] Work Phone: ALP [Catalytic activity/Vol] 59 U/L 35 - 104 U/L [facility] Phone: ALT [Catalytic activity/Vol] 19 U/L 5 - 33 U/L [facility] [facility] Phone: Anion gap [Moles/Vol] 10 mmol/L 9 - 17 mmol/L [facility] Phone: AST [Catalytic activity/Vol] 15 U/L <32 [facility] Phone: Bilirubin Ql (U) <0.15 Low 0.3 - 1.2 mg/dL [facility] Phone: Bun/Cre Ratio NOT REPORTED [employer] Work Phone: Calcium [Mass/Vol] 9.2 mg/dL 8.6 - 10. 4 mg/dL [facility] Phone: Chloride [Moles/Vol] 104 mmol/L 98 - 107 mmol/L [facility] Phone: CO2 [Moles/Vol] 25 mmol/L 20 - 31 mmol/L [facility] Phone: Creatinine [Mass/Vol] 0.68 mg/dL 0.5 - 0.9 mg/dL [facility] Phone: GFR >60 >60 mL/min [facility] Phone: GFR Non- >60 >60 mL/min [facility] Phone: GFR/1.73 sq M predicted among non-blacks MDRD (S/P/Bld) [Vol rate/Area] [facility] Phone: Comment on above: Average GFR for 20-2 9 years old: 116 mL/min/1.73sq m Chronic Kidney Disease: <60 mL/min/1.73sq m Kidney failure: <15 mL/min/1.73sq m eGFR calculated using average adult body mass. Additional eGFR calculator available at: http://www.globalrph.com/multiple_crcl_2012.htm GFR/1.73 sq M predicted among non-blacks MDRD (S/P/Bld) [Vol rate/Area] NOT REPORTED [facility] Phone: Glucose [Mass/Vol] 135 mg/dL High 70 - 99 mg/dL [facility] [employer] Phone: Interpretation and review of laboratory results Abnormal [facility] Phone: Potassium [Moles/Vol] 3.7 mmol/L 3.7 - 5.3 mmol/L [facility] Phone: Protein [Mass/Vol] 7.1 g/dL 6.4 - 8.3 g/dL [employer] Phone: Sodium [Moles/Vol] 139 mmol/L 135 - 144 mmol/L [facility] Phone: Urea nitrogen [Mass/Vol] 11 mg/dL 6 - 20 mg/dL [facility] Phone: Otheron 04-24-2020 Immature granulocytes (Bld) [#/Vol] NOT REPORTED 0 % [facility] Phone: US GALLBLADDER RUQon 04-24- 021 Unremarkable right upper quadrant ultrasound. [facility] Phone: EXAMINATION: RIGHT UPPER QUADRANT ULTRASOUND 04/24/2020 [...] No evidence of right upper quadrant ascites. [facility] Phone: Erick, M[employer] Incoming Radiant Results From [employer] - 04/24/2020 8:18 AM EST EXAMINATION: RIGHT [...] ascites. IMPRESSION: Unremarkable right upper quadrant ultrasound. [email or web address] Work Phone: Vital Signs Date Time Vital Sign Value Performing Clinician Facility 04-14-2023 10:54-0500 Body mass index (BMI) [Ratio] 44.14 kg/m2 [employer] Phone: [facility] 04-14-2023 10:54-0500 Body weight 102.51 kg [employer] Phone: [facility] [employer] 04-14-2023 10:54-0500 Diastolic blood pressure 70 mm[Hg] [employer] Phone: [facility] [employer] 04-14-2023 10:54-0500 Systolic blood pressure 120 mm[Hg] [employer] Phone: [facility] [employer] 04-12-2022 10:30-0500 Body height 152.4 cm Julieth Winkler Other [employer] Other 04-12-2022 10:30-0500 Body mass index (BMI) [Ratio] 41.59 kg/m2 Julieth Winkler Other [employer] Other 04-12-2022 10:30-0500 Body temperature 98.5 [degF] Julieth Winkler Other [employer] Other 04-12-2022 10:30-0500 Body weight 96.62 kg Julieth Winkler Other [employer] Other 04-12-2022 10:30-0500 Diastolic blood pressure 87 mm[Hg] Julieth Winkler Other [employer] Other 04-12-2022 10:30-0500 Respiratory rate 18 /min Julieth Winkler Other [employer] Other 04-12-2022 10:30-0500 SaO2% (BldA) [Mass fraction] 98 % Julieth Winkler Other [employer] Other 04-12-2022 10:30-0500 Systolic blood pressure 141 mm[Hg] Julieth Winkler Other [employer] Other 11-30-2021 17:00-0400 Body height 152.4 cm Jammie Mara Other [employer] Other 11-30-2021 17:00-0400 Body mass index (BMI) [Ratio] 39.06 kg/m2 Jammie Mara Other [employer] Other 11-30-2021 17:00-0400 Body temperature 97.6 [degF] Jammie Mara Other [employer] Other 11-30-2021 17:00-0400 Body weight 90.72 kg Jammie Mara Other [employer] Other 11-30-2021 17:00-0400 Diastolic blood pressure 84 mm[Hg] Jammie Terry Other [employer] Other 11-30-2021 17:00-0400 Respiratory rate 18 /min Jammie Terry Other [employer] Other 11-30-2021 17:00-0400 SaO2% (BldA) [Mass fraction] 99 % Jammie Terry Other [employer] Other 11-30-2021 17:00-0400 Systolic blood pressure 132 mm[Hg] Jammie Terry Other [employer] Other 11-11-2021 10:30-0400 Body height 152.4 cm Julieth Agarwalmond Other [employer] Other 11-11-2021 10:30-0400 Body mass index (BMI) [Ratio] 37.1 kg/m2 Julieth Cathi Other [employer] Other 11-11-2021 10:30-0400 Body temperature 98.1 [degF] Julieth Cathi Other [employer] Other 11-11-2021 10:30-0400 Body weight 86.18 kg Julieth Cathi Other [employer] Other 11-11-2021 10:30-0400 Respiratory rate 18 /min Julieth Cathi Other [employer] Other 11-11-2021 10:30-0400 SaO2% (BldA) [Mass fraction] 99 % Julieth Cathi Other [employer] Other 08-17-2021 14:55-0400 Body height 152.4 cm Julieth Cathi Other [employer] Other 08-17-2021 14:55-0400 Body mass index (BMI) [Ratio] 39.84 kg/m2 Julieth Winkler Other [employer] Other 08-17-2021 14:55-0400 Body temperature 97.8 [degF] Julieth Winkler Other [employer] Other 08-17-2021 14:55-0400 Body weight 92.53 kg Julieth Winkler Other [employer] Other 08-17-2021 14:55-0400 Diastolic blood pressure 74 mm[Hg] Julieth Winkler Other [employer] Other 08-17-2021 14:55-0400 Respiratory rate 18 /min Julieth Winkler Other [employer] Other 08-17-2021 14:55-0400 SaO2% (BldA) [Mass fraction] 99 % Julieth Winkler Other [employer] Other 08-17-2021 14:55-0400 Systolic blood pressure 134 mm[Hg] Julieth Winkler Other [employer] Other Encounters Encounter Date Encounter Type Care Provider Facility Start: 06-14-2023 End: 06-14-2023 ambulatory KATHY PERRY Not Available Start: 05-12-2023 End: 05-12-2023 ambulatory AUBREY CYR Not Available Start: 04-14-2023 End: 04-14-2023 ambulatory KATHY PERRY Not Available Start: 04-14-2023 End: 04-14-2023 Patient encounter procedure Kathy Perry DO Work Phone: [facility] Start: 04-14-2023 End: 04-14-2023 Periodic preventive med est patient 18-39 yrs Kathy Curielo DO Work Phone: [facility] Comment on above: Well woman exam with routine gynecological exam; Exposure to STD; Encounter for anatomic survey; Need for maternal serum alpha-protein (MSAFP) screening; Second trimester Start: 03-17-2023 End: 03-17-2023 ambulatory KATHY CURIELO Not Available Start: 02-17-2023 End: 02-17-2023 ambulatory KATHY MCKAYZIO Not Available Start: 04-12-2022 End: 04-12-2022 ambulatory Julieth Cathi Other [employer] Other Start: 04-12-2022 Office outpatient vi sit 15 minutes Julieth Cathi [facility] Start: 02-12-2022 End: 02-15-2022 ambulatory [facility] Start: 02-12-2022 End: 02-14-2022 Subsequent hospital visit by physician [facility] Nurse 1 [facility] Special Procedures Comment on above: Tear of left acetabu lar labrum, initial encounter Start: 11-30-2021 End: 11-30-2021 ambulatory Jammie Terry Other [employer] Other Start: 11-30-2021 Office outpatient vi sit 15 minutes Jammie Terry [facility] Start: 11-11-2021 End: 11-11-2021 ambulatory Julieth Cathi Other [employer] Other Start: 11-11-2021 Office outpatient vi sit 15 minutes Julieth Cathi [facility] Start: 08-17-2021 End: 08-17-2021 ambulatory Julieth Cathi Other [employer] Other Start: 08-17-2021 Office outpatient vi sit 15 minutes Julieth Cathi [facility] Start: 08-12-2021 End: 08-12-[address] KATHY PERRY Facility:[facility] Start: 06-04-2021 Encounter for preprocedural laboratory examination ANA [facility] Start: 06-04-2021 End: 06-04-2021 ambulatory ANA [facility] Facility:[facility] Start: 06-02-2021 End: 06-03-2021 ambulatory ANA [facility] Facility:[facility] Start: 06-02-2021 End: 06-03-2021 Encounter for preprocedural laboratory examination [facility] Facility: Start: 07-01-2020 End: 07-01-2020 Patient encounter procedure PHYSICIAN NO FAMILY -Ultrasound [facility] Start: 06-27-2020 End: 06-27-2020 Patient encounter procedure [facility]IC[facility] Start: 04-24-2020 End: 04-24-2020 Subsequent hospital visit by physician Mirna FERNÁNDEZ Laboratory Comment on above: RUQ pain Start: 04-24-2020 End: 04-26-2020 Subsequent hospital visit by physician Reinier Ultrasound Rm 105 [facility] Ultrasound Comment on above: RUQ pain Start: 05-26-2015 End: 11-24-2017 Patient encounter status [facility] 104 [facility] Procedures Date Procedure Procedure Detail Performing Clinician [...] (MSAFP) screening Expected: 04/14/2023 (Approximate), Expires: 05/13/2023 [facility] Healthcare Comment on above: Expected: 04/14/2023 (Approximate), Expires: 05/13/2023 Start: 04-14-2023 End: 04-14-2024 US for US OB ANATOMY SINGLE W US OB CERVICAL LENGTH Imaging Routine Encounter for anatomic survey Expected: 04/14/2023 (Approximate), Expires: 04/14/2024 [facility] Healthcare Comment on above: Expected: 04/14/2023 (Approximate), Expires: 04/14/2024 Start: 03-27-2022 Depression [facility] [employer] Start: 09-28-2021 Influenza vaccination Flu vaccine (# 1) [employer] Start: 04-22-2021 Influenza vaccination Flu vaccine (# 1) [employer] Phone: Comment on above: Postponed from 10/29 (Patient Refused) Start: 04-22-2021 Pneumococcal 0-64 ye ars Vaccine (1 of 1 - PPSV23) Pneumococcal 0-64 years Vaccine (1 of 1 - PPSV23) [employer] Phone: Comment on above: Postponed from 02/19 (Patient Refused) Start: 04-07-2021 DTaP/Tdap/Td vaccine (7 - Td or Tdap) DTaP/Tdap/Td vaccine (7 - Td or Tdap) [employer] Start: 04-07-2021 DTaP/Tdap/Td vaccine (7 - Td) DTaP/Tdap/Td vaccine (7 - Td) [employer] Phone: Start: 07-01-2020 Duplex scan of lower limb veins US venous duplex [facility] Start: 02-20-2016 Screening for malign ant neoplasm of cervix [employer] Start: 2013 Hepatitis C screening Hepatitis C celina roe [facility] Probity Start: 2010 HIV screening HIV screen [facility] Probity Start: 2001 Pneumococcal 0-64 ye ars Vaccine (1 - PCV) Pneumococcal 0-64 years Vaccine (1 - PCV) [facility] Probity Start: 1995 COVID-19 Vaccine (#1) COVID-19 Vacci ne (#1) [facility] Probity Start: 1995 Hepatitis C screening Hepatitis C celina roe [facility] [employer] Phone: CHLAMYDIA TRACHOMATI S (GENITO/STI) CHLAMYDIA TRACHOMATIS (GENITO/STI) Lab Routine Exposure to STD Ordered: 04/14/2023 [facility] Comment on above: Ordered: 04/14/2023 Cytology Cervical or vaginal smear or scraping study Pap Smear Pathology and Cytology Routine Well woman exam with routine gynecological exam [facility]: [facility]14[facility]23 [facility]: Comment on above: Ordered: 04/14/2023 End: 02-12-2022 IR INJ ARTHROGRAM HIP LEFT IR INJ ARTHROGRAM HIP LEFT Imaging Routine Tear of left acetabular labrum, initial encounter 1 Occurrences starting 02/12/2022 until 02/12/[address] [facility] [employer] Phone: Comment on above: 1 Occurrences starti ng 02/12/2022 until 02/12/2022 Neisseria gonorrhoea e DNA [Presence] in Unspecified specimen by ANNABELLE with probe detection Neisseria gonorrhea DNA probe, direct Lab Routine Exposure to STD Ordered: 04/14/2023 [facility] Comment on above: Ordered: 04/14/2023 SURESWAB(R) ADVANCED VAGINITIS PLUS, TMA SURESWAB(R) ADVANCED VAGINITIS PLUS, TMA Pathology and Cytology Routine Exposure to STD Ordered: 04/14/2023 [facility] [employer] Comment on above: Ordered: 04/14/2023 Immunizations Immunization Date Immunization Notes Care Provider Parker rodrigues 04-07-2011 human papilloma viru s vaccine, quadrivalent Mirna Rising Phone: 04-07-2011 tetanus toxoid, redu julia diphtheria toxoid, and acellular pertussis vaccine, adsorbed [facility] [employer] Phone: 02-04-2010 influenza virus vacc ine, unspecified formulation [facility] Phone: 12-23-2009 human papilloma viru s vaccine, quadrivalent [facility] Phone: 12-23-2009 meningococcal ACWY vaccine, unspecified formulation [facility] Phone: 04-23-2009 human papilloma viru s vaccine, quadrivalent [facility] [employer] Phone: 10-21-2000 diphtheria, tetanus toxoids and acellular pertussis vaccine [facility] Phone: 10-21-2000 measles, mumps and r ubella virus vaccine [facility] Phone: 07-25-1997 diphtheria, tetanus toxoids and acellular pertussis vaccine [facility] Phone: 07-25-1997 hepatitis B vaccine, adult dosage [facility] [employer] Phone: 07-25-1997 hepatitis B vaccine, unspecified formulation [facility] Phone: 07-25-1997 Hib, unspecified [facility] Work Phone: 07-19-1997 poliovirus vaccine, unspecified formulation [facility] Phone: 09-27-1996 diphtheria, tetanus toxoids and acellular pertussis vaccine [facility] [employer] Phone: 09-27-1996 Hib, unspecified [facility] Work Phone: 09-27-1996 measles, mumps and r ubella virus vaccine [facility] Phone: 09-27-1996 poliovirus vaccine, unspecified formulation [facility] [employer] Phone: 1995 diphtheria, tetanus toxoids and acellular pertussis vaccine [facility]na Rising Phone: 1995 Hib, unspecified Mirna Bennett [facility] Work Phone: 1995 poliovirus vaccine, unspecified formulation [employer] Phone: 1995 diphtheria, tetanus toxoids and acellular pertussis vaccine [employer] Phone: 1995 hepatitis B vaccine, adult dosage [facility] [address] [facility] [employer] Phone: 1995 hepatitis B vaccine, unspecified formulation [employer] Phone: 1995 Hib, unspecified Mirna Rehan [facility] Work Phone: 1995 poliovirus vaccine, unspecified formulation [employer] Phone: 1995 hepatitis B vaccine, adult dosage [facility] 104 [facility] [employer] Phone: 1995 hepatitis B vaccine, unspecified formulation [employer] Phone: Payers Date Payer Category Payer Unknown BCBS BCBS [id number] 2022-[facility] [phone] [address] [place] [address] [id number] 1995 Unknown [id number] 1995 Unknown [id number] 1995 Unknown [id number] 1995 Unknown [id number] 1995 Unknown [id number] 1995 Unknown [id number] 1995 Unknown [id number] [id number] 1995 Unknown [id number] 1995 Unknown [id number] [id number] 1995 Unknown [id number] 1959 Unknown [id number] Self-pay Self Pay [id number] Unknown Self Pay [id number] Unknown Self Pay [id number] Social History Date Type Detail Facility Start: 02-28-2007 End: 08-14-2022 Tobacco smoking status IAIS Current every day smoker [facility] [employer] Start: 02-28-2007 History of tobacco use Cigarette Smo ker [employer] Phone: Start: 04-22-2020 End: 08-14-2022 Cigarettes smoked current (pack per day) - Reported [employer] Phone: Start: 04-22-2020 End: 12-16-2021 Tobacco use and exposure Never used [employer] Phone: Start: 04-22-2020 End: 03-17-2023 Alcohol intake Current drinker of alcohol (finding) [employer] Phone: Start: 03-24-2015 Alcohol Comment occasional [employer] Work Phone: Start: 1995 Sex Assigned At Not on file M [employer] Work Phone: Start: 1995 Sex Assigned At Female F [facility] Start: 08-14-2022 Sex Assigned At N [facility] [employer] Other Start: 02-03-2022 History SDOH Physica l Activity DPW 0 [facility] [employer] Work Phone: Start: 03-27-2021 History SDOH Financial 5 [facility]ON [employer] Phone: Start: 02-03-2022 History SDOH IPV Fear 2 B ON [employer] Phone: Start: 03-27-2021 History SDOH Food Worry 1 [facility] [employer] Phone: Start: 01-26-2022 End: 02-05-2022 Exposure to SARS-CoV-2 (event) Not sure [employer] Start: 08-14-2022 Alcohol Comment 1-2 drinks les [...] nursing note reviewed. Exam conducted with a general internist present. Vitals: Estimated body mass index is [...] her MSAFP order do have done at [facility]. Documented by Lauren Crystal MA on behalf of: Kathy Perry DO documented in this encounter [facility] 04-12-2022 Evaluation note Encounter Date Diagnosis Assessment [...] left ear, unspecified type (ICD-10 - H60.502) [employer] Other 12-16-2022 History of Present illness Narrative* Analia Sin RN - 02/12/2022 8:30 AM EST Patient tolerated left hip injections without distress. Dry dressing to site. Patient to MRI for further imaging. [facility] [employer] Phone: [phone] Evaluation note* Encounter Date Diagnosis Assessment Notes Treatment Notes Treatment Clinical Notes Nov, Tattoo reaction (ICD-10 - L92.3) Use medication as directed. complete all doses. Recommend unscented soap to [facility] [employer] Other 09-14-2022 Evaluation note* Encounter Date Diagnosis [...] no improvement in 2 to 3 days. [employer] Other 06-20-2022 Evaluation note* Encounter Date Diagnosis [...] days, Tendonitis home care material was printed [employer] Other Evaluation noteNo Assessments Information Available [facility]* Diagnosis Tear of left acetabular labrum, initial encounter documented in this encounter [facility] [employer] Phone: evaluation note* Diagnosis Well woman exam with routine gynecological exam Routine gynecological examination Exposure to STD Encounter for anatomic survey Need for maternal serum alpha-protein (MSAFP) screening Second trimester state, incidental documented [facility] encounter [facility] N[facility]ative - Reported* Type Description Date Surgical History laparoscopy female Surgical History appendectomy Surgical History bronchoscopy [employer] Other History general Narrative - Reported* Type Description Date Medical History Esophageal reflux Surgical History laparoscopy female Surgical History appendectomy Surgical History bronchoscopy [employer] Other Hospital Discharge instructions* Attachments The following attachments cannot be sent through Care Everywhere. 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 ACP-Advance Directive ACP-Power of Cat Sitter Advance Directive Response Recorded Date/ Time Advance Directives No October 09, 2017 12:18pm Reason for Referral Status Reason Specialty Diagnoses / Procedures Referre d By Contact Referred To Contact Closed Radiology Diagnoses RUQ pain Procedures [place] [address] [place] [address] Specialty Diagnoses / Procedures Referred By Contac t Referred To Contact Radiology Diagnoses Tear of left acetabular labrum, initial encounter Procedures IR [place] [address] [place] [address] Referral ID Status Reason Start Date Expiration Date Visits Re quested Visits Authorized [id number] Closed 02/12/2022 02/12/2023 1 1 Specialty Diagnoses / Procedures Referred By Contac t Referred To Contact Radiology Diagnoses Tear of left acetabular labrum, initial encounter S73.192A (ICD-10-CM) - Tear of left acetabular labrum, initial encounter Procedures IR INJ ARTHROGRAM HIP LEFT [place] INJECTION HIP ARTHROGRAM [address] - [place]JE[place] [address] [place] [address] Referral ID Status Reason Start Date Expiration Date Visits Re quested Visits Authorized [id number] Closed 02/05/2022 02/05/2023 1 1 Chief Complaint and Reason for Visit Chief Complaint Tenderness of left c [facility] Summary Purpose Family History No Family History Records FoundNo Family History Records FoundNo Family History Records FoundNo Family History Records FoundNo Family History Records Found Additional Source Comments Reason for Visit (unrecogniz ed section and content) Status Reason Specialty Diagnoses / Procedures Referre d By Contact Referred To Contact Closed Radiology Diagnoses RUQ pain Procedures [place] [address] [employer] [facility] [place] [address] Specialty Diagnoses / Procedures Referred By Contac t Referred To Contact Radiology Diagnoses Tear of left acetabular labrum, initial encounter S73.192A (ICD-10-CM) - Tear of left acetabular labrum, initial encounter Procedures IR INJ ARTHROGRAM HIP LEFT [place] INJECTION HIP ARTHROGRAM [address] - [place]JE[place] [address] [place] [address] Referral ID Status Reason Start Date Expiration Date Visits Re quested Visits Authorized [id number] Closed 02/05/2022 02/05/2023 1 1 Reason Comments Routine Visit INFORMATION SOURCE (unrecogn ized section and content) DATE CREATED AUTHOR 03/29/2021 [facility] DATE CREATED AUTHOR AUTHOR'S ORGANIZ ATION 08/17/2021 [facility] DATE CREATED AUTHOR AUTHOR'S ORGANIZ ATION 08/18/2021 [facility] DATE CREATED AUTHOR AUTHOR'S ORGANIZ ATION 02/18/2022 [facility] DATE CREATED AUTHOR AUTHOR'S ORGANIZ ATION 06/15/2023 [facility] d[facility] Specialists [employer] Care Teams (unrecognized sec tion and content) 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 [place] [address] [place] [address] PCP - General Family Medicine 03/11/15 FOR [...] BE BASED ON THE PRIMARY CLINICAL RECORDS. [employer] provides no warranty or guarantee of the accuracy or completeness of information in this document.
[2023-06-23 11:34] LABS: Glucose 1 Hour 146 mg/dL (<130)
[2023-06-23 16:07] LABS: Basophils Percent Auto 0.3 % (0.2-2.0); Eosinophils Absolute Auto 0.1 10^3/uL (0.0-0.7); Eosinophils Percent Auto 0.6 % (0.9-7.0); Hematocrit 37.5 % (36.0-48.0); Hemoglobin 11.8 g/dL (12.0-16.0); Immature Granulocytes Abs Auto 0.05 10^3/uL (0.00-0.03); Immature Granulocytes Pct Auto 0.3 % (0.0-0.5); Lymphocytes Absolute Auto 1.8 10^3/uL (1.2-3.8); Lymphocytes Percent Auto 11.3 % (20.5-60.0); Mean Corpuscular HGB Conc 31.5 g/dL (29.9-35.2); Mean Corpuscular Hemoglobin 28.9 pg (26.7-34.0); Mean Corpuscular Volume 91.7 fL (81.0-99.0); Mean Platelet Volume 10.7 fL (9.5-13.5); Monocytes Absolute Auto 0.7 10^3/uL (0.3-0.8); Monocytes Percent Auto 4.4 % (1.7-12.0); Neutrophils Absolute Auto 13.3 10^3/uL (1.4-6.5); Neutrophils Percent Auto 83.1 % (43.0-75.0); Platelet Count 350 10^3/uL (150-450); Red Blood Count 4.09 10^6/uL (4.20-5.40); Red Cell Distribution Width 14.9 % (11.0-15.0)
== END 2023-06-23 10:10 | disposition home or self-care (01) ==
LOC: LAB 10:10
PROVIDERS: Visit Provider Obstetrics & Gynecology
DX: Z13.1 Encounter for screening for diabetes mellitus (principal)
CPT/HCPCS: 36415; 82950; 85025

== ENCOUNTER 2023-07-01 07:18 | Outpatient (OUT) | payer BC, SELFPAY ==
--- OUTSIDE RECORDS SUMMARY | 2023-07-01 07:21 | XMS_ITS | CCD ---
Author Organization [facility] Care Team Providers Care Tie Cutter Name Role Phone Mirna Bennett Primary Care Provider NO FAMILY, PHYSICIAN Primary Care Provider Unava ilJammie Bhatti Attending Provider [phone] Mirna Bennett Primary Care Provider [phone] SAMSA ANA Admitting Unavailable SAMSA, ANA Attending Unavailable SAMSA, ANA Consulting Unavailable SAMSA, ANA Admitting Unavailable SAMSA ANA Attending Unavailable SAMSAANA Consulting Unavailable AGUBOSIM, KELSEY Consulting Unavailable RAADYARITZA Bagley Consulting Unavailable DR KATHY PERRY Admitting Unavailable SHYANNE, DR CHAVEZ Attending Unavailable SHYANNE, DR CHAVEZ Consulting Unavailable Julieth Winkler Unavailable Jammie Terry Unavailable Rehan RIVERA, Mirna Jacobs Primary Care Provider [phone] ELICIA GONZALEZ Referring Unavailable MIRNA BENNETT Primary [...] to drug 11-17-19 17 Other (See Comments) [facility] Phone: (3 sources) Bismuth-Containin g Compounds Propensity to adverse reactions to drug 03-24-19 16 Hives [facility] Phone: (1 source) bismuth subsalicylate Drug Allergy 10-10-19 18 The [facility] (5 sources) bismuth subsalicylate Drug Allergy 12-03-19 21 hives, Other (See Comments) [facility] (2 sources) bismuth subsalicylate Drug Allergy 12-03-19 [...] 3 12/17/2019 Active 21 day ethinyl estradiol 0.820596 mg/hr / etonogestrel 0.005 mg/hr vaginal system (7 sources) Progestin, Estrogen Start: 06-13-2018 NUVARING 0.12-0.015 MG/24HR vaginal ring NuvaRing Active fluocinonide 0.5 mg/ml topical cream (2 sources) Corticosteroid Start: 07-24-2019 fluocinonide (LIDEX) 0.05 % cream Apply topically 2 times daily. 60 g 1 07/24/2019 Active hydrocortisone 10 mg/ml / neomycin 3.5 mg/ml / polymyxin b 59429 unt/ml otic suspension (1 source) Aminoglycoside Antibacterial, Polymyxin-class Antibacterial, Corticosteroid Start: 04-12-2022 Zfbvehsr-Kurtlwonk-YN 3.5-41979-4 3 drops left ear Three times a [...] UA Negative Negative - 4(70) +++ mg/dL [facility] Blood, UA Negative Negative - 50 Bill/mcL [facility] Clarity, UA Clear [facility] Color, UA Yellow [facility] Glucose, UA Negative Negative - 1999(110) ++++ mg/dL [facility] Interpretation and review of laboratory results Abnormal [facility] Ketones, UA Positive Negative - 160(16) ++++ mg/dL [facility] Comment on above: 40 mg Leukocytes, UA Negative Negative - 500+++ Simon/mcL [facility] Nitrite, UA Negative Negative - Positive [facility] pH, UA 7.0 5 - 9 [facility] Protein, UA Trace Negative - 2000(20) ++++ mg/dL [facility] Spec Grav, UA 1.025 1 - 1.03 [facility] Urobilinogen, UA 0.2 0.2 - 12 mg/dL [facility] INJ ARTHROGRAM HIP LEFTon 02-13-2022 IR INJ ARTHROGRAM HIP LEFT EXAMINATION: FLUOROSCOPIC GUIDED LEFT HIP ARTHROGRAM, 02/12/2022 8:45 am COMPARISON: None. HISTORY: ORDERING SYSTEM PROVIDED HISTORY: Tear of left acetabular labrum, initial encounter TECHNOLOGIST PROVIDED HISTORY: Is the patient ?->No FLUOROSCOPY DOSE AND TYPE OR TIME AND EXPOSURES: 54 seconds; D AP 83 cGy cm2 PROCEDURE: RECRUITING SCHEDULER: Gaudencio Chávez MD Informed consent was obtained [...] Gaudencio Chávez MD 02/12/22 Final result Normal [facility] IR INJ ARTHROGRAM HIP LEFTon 02-12-2022 Successful fluoroscopic-guided left hip arthrogram. Patient was transferred to MRI for further imaging. [facility] EXAMINATION: FLUOROSCOPIC GUIDED LEFT HIP ARTHROGRAM, 02/12/2022 8:45 am COMPARISON: None. HISTORY: ORDERING SYSTEM PROVIDED HISTORY: Tear of left acetabular labrum, initial encounter TECHNOLOGIST PROVIDED HISTORY: Is the patient ?->No FLUOROSCOPY DOSE AND TYPE OR TIME AND EXPOSURES: 54 seconds; D AP 83 cGy cm2 PROCEDURE: RECRUITING SCHEDULER: Gaudencio Chávez MD Informed consent was obtained [...] is sent for subsequent MRI. EBL: None [facility] Gaudencio Chávez MD - 02/12/2022 EXAMINATION: FLUOROSCOPIC GUIDED LEFT HIP ARTHROGRAM, 02/12/2022 8:45 am COMPARISON: None. HISTORY: ORDERING SYSTEM PROVIDED HISTORY: Tear of left acetabular labrum, initial encounter TECHNOLOGIST PROVIDED HISTORY: Is the patient ?->No FLUOROSCOPY DOSE AND TYPE OR TIME AND EXPOSURES: 54 seconds; D AP 83 cGy cm2 PROCEDURE: RECRUITING SCHEDULER: Gaudencio Chávez MD Informed consent was obtained [...] was transferred to MRI for further imaging. [facility] Phone: Radiology Study observation (narrative) [facility] Phone: IR INJ ARTHROGRAM HIP LEFTOr dered By: Gaudencio Chávez on 02-12-2022 [facility] Phone: MRI HIP LEFT W CONTRASTon MRI [...] Anthony Villanueva MD 02/12/22 Final result Normal [facility] SARS-CoV-2 (COVID-19) RNA NA A+probe Ql (Resp)on 11-11-2021 SARS-CoV-2 (COVID-19) RNA ANNABELLE+probe Ql (Unsp spec) Positive [employer] Other PAP ACOG PANEL 2: 21 to 29on 08-17-2021 . . Normal [facility] Comment on above: Performed By: #### [id number] #### [facility] [address] [address] [address] Cesar Young Age Gdln ACOG Testing 21- Normal [facility] Comment on above: Performed By: #### [id number] #### [facility] [address] [address] [address] Cesar Young DIAGNOSIS: Comment Normal [facility] Comment on above: Result Comment: NEGA TIVE FOR INTRAEPITHELIAL LESION OR MALIGNANCY. Performed By: #### [id number] #### [facility] [address] [address] [address] Cesar Young Methodology: Comment Normal [facility] Comment on above: Result Comment: This liquid based ThinPrep(R) pap test was screened with the use of an image guided system. Performed By: #### [id number] #### [facility] [address] [place] [address] Dr. Cesar Young Note: Comment Normal [facility] Comment on above: Result Comment: The Pap smear is a screening test designed to aid in the detection of premalignant and malignant conditions of the uterine cervix. It is not a diagnostic procedure and should not be used as the sole means of detecting cervical cancer. Both false-positive and false-negative reports do occur. . Performed By: #### [id number] #### [facility] [address] [place] [address] Dr. Cesar Young Performed by: Comment Normal [facility] Comment on above: Result Comment: Linda Taveras Remote Coders (ASCP) Performed By: #### [id number] #### [facility] [address] [place] [address] Dr. Cesar Young Reflex Criteria: Comment Normal [facility] Comment on above: Result Comment: The HPV DNA reflex criteria were not met with this specimen result therefore, no HPV testing was performed. . Performed By: #### 4 [id number] #### [facility] [address] [place] [address] Dr. Cesar Young Specimen adequacy: Comment Normal [facility] Comment on above: Result Comment: Sati sfactory for evaluation. Endocervical and/or squamous metaplastic cells (endocervical component) are present. Performed By: #### 4 [id number] #### [facility] [address] [place] [address] Dr. Cesar Young XR hand LT min 3V*on 022 XR hand LT min 3V* [facility] [place] [address] [place] [address] XRay Report Signed Patient: Vianey Chen MR#: [id number] 0 : 1995 Acct:[id number] Age/Sex: 26 / F ADM Date: 08/17/21 Loc: [facility] Room: Type: [facility] Attending Dr: Julieth HERNANDEZ Copies to: [...] Ailin Borrego M.D.08/17/2021 2:53 PM Dictation Location: [place] [address] Transcribed By: [facility] 08/17/21 1453 Dictated By: Ailin Borrego MD 08/17/21 1451 Signed By: 08/17/21 145 Normal [facility] XR hand LT min 3V* [facility] [employer] Other XR hand LT min 3V* [facility] [employer] Other XR hand LT min 3V* [address] [place] [address] [employer] Other XR hand LT min 3V* [place] [address] [employer] Other XR hand LT min 3V* XRay Report [employer] Other XR hand LT min 3V* Signed [employer] Other XR hand LT min 3V* Patient: Vianey Chen MR#: [id number] [employer] Other XR hand LT min 3V* 0 [employer] Other XR hand LT min 3V* : 1995 Acct:[id number] [employer] Other XR hand LT min 3V* Age/Sex: 26 / F ADM Date: 08/17/21 [employer] Other XR hand LT min 3V* Loc: [facility] Room: Type: REG CLI [employer] Other XR hand LT min 3V* Attending Dr: Julieth HERNANDEZ [employer] Other XR hand LT min 3V* Copies to: DAVID Salmeron [employer] Other XR hand LT min 3V* Ordering Provider: DAVID Salmeron [employer] Other XR hand LT min 3V* Date of Service: 08/17/21 [employer] Other XR hand LT min 3V* XR/XR hand LT min 3V*: Pain of left thumb [employer] Other XR hand LT min 3V* LEFT HAND - 4 views [employer] Other XR hand LT min 3V* CLINICAL DATA: Patient injured left hand yesterday and has bruising, pain and swelling over the [employer] Other XR hand LT min 3V* metacarpal phalangea l joint of the thumb and at the distal first metacarpal [employer] Other XR hand LT min 3V* COMPARISON: None [employer] Other XR hand LT min 3V* AP, lateral and oblique views were obtained along with a supplemental lateral view at the thumb. [employer] Other XR hand LT min 3V* There is no evidence of fracture or dislocation. There are no significant soft tissue [employer] Other XR hand LT min 3V* abnormalities. No rt [facility] Other XR hand LT min 3V* XR/XR hand LT min 3V* [employer] Other XR hand LT min 3V* IMPRESSION: [employer] Other XR hand LT min 3V* NO ACUTE BONY INJURY. [employer] Other XR hand LT min 3V* Impression dictated by: Ailin Borrego M.D.08/17/2021 2:53 PM [employer] Other XR hand LT min 3V* Dictation Location: [id number]-13 [employer] Other XR hand LT min 3V* Transcribed By: GONZALO 08/17/21 1453 [employer] Other XR hand LT min 3V* Dictated By: Ailin Borrego MD 08/17/21 [facility] [employer] Other XR hand LT min 3V* Signed By: [employer] Other XR hand LT min 3V* 08/17/21 1453 [facility] Other PREG HCG QUALon 06-04-2021 , QUAL Negative Normal NEGATIVE [facility] Comment on above: Performed By: #### P REG #### [facility] [address] [place] [address] Dr. Cesar Young [facility] SARS-CoV-2 (COVID-19) RNA ANNABELLE+probe Ql (Unsp spec) Not detected Normal NOT DETECTED [facility] Comment on above: Result Comment: This test is not yet approved or cleared by the [place] FDA. When there are no FDA-approved or cleared tests available, and other criteria are met, FDA can make tests available under an emergency access mechanism called an Emergency Use Authorization (EUA). The EUA for this test is supported by the [place] of Health and Human Service's (HHS's) declaration [...] SARS-CoV-2. Performed By: #### C VDTB #### [facility] [address] [address] [address] Cesar Young [id number] 03-28-2021 SARS-CoV-2 (COVID-19) RNA ANNABELLE+probe Ql (Unsp spec) Normal [facility] Comment on above: Performed By: #### C OVID #### [facility] [employer] [facility] [place] [address] Hand Pleater: Vijay Tinsley MD SARS-CoV-2 (COVID-19) RNA ANNABELLE+probe Ql (Unsp spec) Detected Abnormal NOTDET [facility] Comment on above: Result Comment: The [...] this assay. Fact sheet for Healthcare Providers: https://www.fda.gov/media/013966/download Fact sheet for Patients: https://www.fda.gov/media/871024/download METHODOLOGY: RT-PCR Results reported to the appropriate Health Department Performed By: #### C OVID #### [facility] [address] [place], [place] [id number] Hand Pleater: Vijay Tinsley MD [id number] 03-27-2021 SARS-CoV-2 (COVID-19) RNA ANNABELLE+probe Ql (Unsp spec) NOT REPORTED Normal [facility] Comment on above: Performed By: #### C OVID #### [facility] [address] [place], [place] [id number] Hand Pleater: Vijay Tinsley MD CBC Auto Differentialon 04-01 Basophils (Bld) [#/Vol] 0.10 10*3/uL [facility] Phone: Basophils/100 WBC (Bld) 1 % 0 - 2 % [facility] Phone: Differential Type NOT REPORTED [facility] Phone: Eosinophils (Bld) [#/Vol] 0.20 10*3/uL [facility] Phone: Eosinophils/100 WBC (Bld) 2 % 0 - 4 % [facility] Phone: Erythrocyte distribution width (RBC) [Ratio] 13.9 % 11.5 - 14.9 % [facility] Phone: Hematocrit (Bld) [Volume fraction] 43.1 % 36 - 46 % [facility] Phone: Hemoglobin (Bld) [Mass/Vol] 14.2 g/dL 12 - 16 g/dL [facility] Phone: Lymphocytes (Bld) [#/Vol] 2.10 10*3/uL [facility] Phone: Lymphocytes/100 WBC (Bld) 25 % 24 - 44 % [facility] Phone: MCH (RBC) [Entitic mass] 28.7 pg 26 - 34 pg [facility] Phone: MCHC (RBC) [Mass/Vol] 33.0 g/dL 31 - 37 g/dL [facility] Phone: MCV (RBC) [Entitic vol] 87.2 fL 80 - 100 fL [facility] Work Phone: Monocytes (Bld) [#/Vol] 0.60 10*3/uL [facility] [employer] Work Phone: Monocytes/100 WBC (Bld) 7 % 1 - 7 % [facility] [employer] Work Phone: Platelet mean volume (Bld) [Entitic vol] 7.7 fL 6 - 12 fL [facility] [employer] Work Phone: Platelets (Bld) [#/Vol] 359 10*3/uL [facility] [employer] Work Phone: Platelets (Bld) [#/Vol] NOT REPORTED [facility] [employer] Work Phone: RBC (Bld) [#/Vol] 4.94 10*6/uL 4 - 5.2 m/uL [facility] [employer] Work Phone: RBC morphology finding Nom (Bld) NOT REPORTED [facility] [employer] Work Phone: Segmented neutrophils/100 WBC (Bld) 65 % 36 - 66 % [facility] [employer] Work Phone: Segs Absolute 5.40 [facility] Work Phone: WBC (Bld) [#/Vol] NOT REPORTED per 100 WBC [facility] [employer] Work Phone: WBC (Bld) [#/Vol] 8.4 10*3/uL [facility] [employer] Work Phone: WBC Morphology NOT REPORTED [facility] Work Phone: Comprehensive Metabolic Pane dawit 04-24-2020 Albumin [Mass/Vol] 3.9 g/dL 3.5 - 5.2 g/dL [facility] [employer] Work Phone: Albumin/Globulin [Mass ratio] NOT REPORTED [facility] [employer] Work Phone: ALP [Catalytic activity/Vol] 59 U/L 35 - 104 U/L [facility] Phone: ALT [Catalytic activity/Vol] 19 U/L 5 - 33 U/L [facility] Phone: Anion gap [Moles/Vol] 10 mmol/L 9 - 17 mmol/L [facility] Phone: AST [Catalytic activity/Vol] 15 U/L <32 [facility] Phone: Bilirubin Ql (U) <0.15 Low 0.3 - 1.2 mg/dL [facility] Phone: Bun/Cre Ratio NOT REPORTED [employer] Work Phone: Calcium [Mass/Vol] 9.2 mg/dL 8.6 - 10. 4 mg/dL [facility] Phone: Chloride [Moles/Vol] 104 mmol/L 98 - 107 mmol/L [facility] Phone: CO2 [Moles/Vol] 25 mmol/L 20 - 31 mmol/L [facility] Phone: Creatinine [Mass/Vol] 0.68 mg/dL 0.5 - 0.9 mg/dL [facility] Phone: GFR >60 >60 mL/min [facility] Phone: GFR Non- >60 >60 mL/min [facility] Phone: GFR/1.73 sq M predicted among non-blacks MDRD (S/P/Bld) [Vol rate/Area] [facility] Phone: Comment on above: Average GFR for 20-2 9 years old: 116 mL/min/1.73sq m Chronic Kidney Disease: <60 mL/min/1.73sq m Kidney failure: <15 mL/min/1.73sq m eGFR calculated using average adult body mass. Additional eGFR calculator available at: http://www.globalrph.com/multiple_crcl_2012.htm GFR/1.73 sq M predicted among non-blacks MDRD (S/P/Bld) [Vol rate/Area] NOT REPORTED [facility] Phone: Glucose [Mass/Vol] 135 mg/dL High 70 - 99 mg/dL [facility] [employer] Phone: Interpretation and review of laboratory results Abnormal [facility] Phone: Potassium [Moles/Vol] 3.7 mmol/L 3.7 - 5.3 mmol/L [facility] Phone: Protein [Mass/Vol] 7.1 g/dL 6.4 - 8.3 g/dL [employer] Phone: Sodium [Moles/Vol] 139 mmol/L 135 - 144 mmol/L [facility] Phone: Urea nitrogen [Mass/Vol] 11 mg/dL 6 - 20 mg/dL [facility] Phone: Otheron 04-24-2020 Immature granulocytes (Bld) [#/Vol] NOT REPORTED 0 % [facility] Phone: US GALLBLADDER RUQon 04-24- 021 Unremarkable right upper quadrant ultrasound. [facility] Phone: EXAMINATION: RIGHT UPPER QUADRANT ULTRASOUND 04/24/2020 [...] No evidence of right upper quadrant ascites. [facility] Phone: Erick, [employer] Incoming Radiant Results From [employer] - 04/24/2020 8:18 AM EST EXAMINATION: RIGHT [...] ascites. IMPRESSION: Unremarkable right upper quadrant ultrasound. [employer] Work Phone: Vital Signs Date Time Vital Sign Value Performing Clinician Facility 04-14-2023 10:54-0500 Body mass index (BMI) [Ratio] 44.14 kg/m2 [employer] Phone: [facility] [employer] 04-14-2023 10:54-0500 Body weight 102.51 kg [employer] Phone: [facility] [employer] 04-14-2023 10:54-0500 Diastolic blood pressure 70 mm[Hg] [employer] Phone: [facility] [employer] 04-14-2023 10:54-0500 Systolic blood pressure 120 mm[Hg] [employer] Phone: [facility] [employer] 04-12-2022 10:30-0500 Body height 152.4 cm Julieth Winkler Other [employer] Other 04-12-2022 10:30-0500 Body mass index (BMI) [Ratio] 41.59 kg/m2 Julieth Winkler Other [employer] Other 04-12-2022 10:30-0500 Body temperature 98.5 [degF] Julieth Winkler Other [employer] Other 04-12-2022 10:30-0500 Body weight 96.62 kg Julieth Winkler Other [employer] Other 04-12-2022 10:30-0500 Diastolic blood pressure 87 mm[Hg] Julieth Winkler Other [employer] Other 04-12-2022 10:30-0500 Respiratory rate 18 /min Julieth Winkler Other [employer] Other 04-12-2022 10:30-0500 SaO2% (BldA) [Mass fraction] 98 % Julieth Winkler Other [employer] Other 04-12-2022 10:30-0500 Systolic blood pressure 141 mm[Hg] Julieth Winkler Other [employer] Other 11-30-2021 17:00-0400 Body height 152.4 cm Jammie Mara Other [employer] Other 11-30-2021 17:00-0400 Body mass index (BMI) [Ratio] 39.06 kg/m2 Jammie Mara Other [employer] Other 11-30-2021 17:00-0400 Body temperature 97.6 [degF] Jammie Mara Other [employer] Other 11-30-2021 17:00-0400 Body weight 90.72 kg Jammie Mara Other [employer] Other 11-30-2021 17:00-0400 Diastolic blood pressure 84 mm[Hg] Jammie Terry Other [employer] Other 11-30-2021 17:00-0400 Respiratory rate 18 /min Jammie Terry Other [employer] Other 11-30-2021 17:00-0400 SaO2% (BldA) [Mass fraction] 99 % Jammie Terry Other [employer] Other 11-30-2021 17:00-0400 Systolic blood pressure 132 mm[Hg] Jammie Terry Other [employer] Other 11-11-2021 10:30-0400 Body height 152.4 cm Julieth Agarwalmond Other [employer] Other 11-11-2021 10:30-0400 Body mass index (BMI) [Ratio] 37.1 kg/m2 Julieth Cathi Other [employer] Other 11-11-2021 10:30-0400 Body temperature 98.1 [degF] Julieth Cathi Other [employer] Other 11-11-2021 10:30-0400 Body weight 86.18 kg Julieth Cathi Other [employer] Other 11-11-2021 10:30-0400 Respiratory rate 18 /min Julieth Cathi Other [employer] Other 11-11-2021 10:30-0400 SaO2% (BldA) [Mass fraction] 99 % Julieth Cathi Other [employer] Other 08-17-2021 14:55-0400 Body height 152.4 cm Julieth Cathi Other [employer] Other 08-17-2021 14:55-0400 Body mass index (BMI) [Ratio] 39.84 kg/m2 Julieth Winkler Other [employer] Other 08-17-2021 14:55-0400 Body temperature 97.8 [degF] Julieth Winkler Other [employer] Other 08-17-2021 14:55-0400 Body weight 92.53 kg Julieth Winkler Other [employer] Other 08-17-2021 14:55-0400 Diastolic blood pressure 74 mm[Hg] Julieth Winkler Other [employer] Other 08-17-2021 14:55-0400 Respiratory rate 18 /min Julieth Winkler Other [employer] Other 08-17-2021 14:55-0400 SaO2% (BldA) [Mass fraction] 99 % Julieth Winkler Other [employer] Other 08-17-2021 14:55-0400 Systolic blood pressure 134 mm[Hg] Julieth Winkler Other [employer] Other Encounters Encounter Date Encounter Type Care Provider Facility Start: 06-14-2023 End: 06-14-2023 ambulatory KATHY PERRY Not Available Start: 05-12-2023 End: 05-12-2023 ambulatory AUBREY CYR Not Available Start: 04-14-2023 End: 04-14-2023 ambulatory KATHY PERRY Not Available Start: 04-14-2023 End: 04-14-2023 Patient encounter procedure Kathy Perry DO Work Phone: [facility] Start: 04-14-2023 End: 04-14-2023 Periodic preventive med est patient 18-39 yrs Kathy Curielo DO Work Phone: [facility] OB Comment on above: Well woman exam with routine gynecological exam; Exposure to STD; Encounter for anatomic survey; Need for maternal serum alpha-protein (MSAFP) screening; Second trimester Start: 03-17-2023 End: 03-17-2023 ambulatory KATHY CURIELO Not Available Start: 02-17-2023 End: 02-17-2023 ambulatory KATHY MCKAYZIO Not Available Start: 04-12-2022 End: 04-12-2022 ambulatory Julieth Cathi Other [employer] Other Start: 04-12-2022 Office outpatient vi sit 15 minutes Julieth Cathi [facility] Start: 02-12-2022 End: 02-15-2022 ambulatory [facility] Start: 02-12-2022 End: 02-14-2022 Subsequent hospital visit by physician [facility] Nurse [facility] Procedures Comment on above: Tear of left acetabu lar labrum, initial encounter Start: 11-30-2021 End: 11-30-2021 ambulatory Jammie Terry Other [employer] Other Start: 11-30-2021 Office outpatient vi sit 15 minutes Jammie Terry [facility] Start: 11-11-2021 End: 11-11-2021 ambulatory Julieth Cathi Other [employer] Other Start: 11-11-2021 Office outpatient vi sit 15 minutes Julieth Cathi [facility] Start: 08-17-2021 End: 08-17-2021 ambulatory Julieth Cathi Other [employer] Other Start: 08-17-2021 Office outpatient vi sit 15 minutes Julieth Cathi [facility] Start: 08-12-2021 End: 08-12-[address] KATHY PERRY Facility:[facility] Start: 06-04-2021 Encounter for preprocedural laboratory examination [facility] Start: 06-04-2021 End: 06-04-2021 ambulatory [facility] Facility:[facility] Start: 06-02-2021 End: 06-03-2021 ambulatory ANA [facility] Facility:[facility] Start: 06-02-2021 End: 06-03-2021 Encounter for preprocedural laboratory examination [facility] Facility: Start: 07-01-2020 End: 07-01-2020 Patient encounter procedure PHYSICIAN NO FAMILY -Ultrasound [facility] Start: 06-27-2020 End: 06-27-2020 Patient encounter procedure PHYSICIAN NO FAMILY -[facility] Start: 04-24-2020 End: 04-24-2020 Subsequent hospital visit by physician Mirna FERNÁNDEZ Laboratory Comment on above: RUQ pain Start: 04-24-2020 End: 04-26-2020 Subsequent hospital visit by physician Reinier Ultrasound Rm [facility] Ultrasound Comment on above: RUQ pain Start: 05-26-2015 End: 11-24-2017 Patient encounter status [facility] Procedures Date Procedure Procedure Detail Performing Clinician [...] (MSAFP) screening Expected: 04/14/2023 (Approximate), Expires: 05/13/2023 [facility] Healthcare Comment on above: Expected: 04/14/2023 (Approximate), Expires: 05/13/2023 Start: 04-14-2023 End: 04-14-2024 US for US OB ANATOMY SINGLE W US OB CERVICAL LENGTH Imaging Routine Encounter for anatomic survey Expected: 04/14/2023 (Approximate), Expires: 04/14/2024 [facility] Comment on above: Expected: 04/14/2023 (Approximate), Expires: 04/14/2024 Start: 03-27-2022 [facility] [employer] Start: 09-28-2021 Influenza vaccination Flu vaccine (# 1) [employer] Start: 04-22-2021 Influenza vaccination Flu vaccine (# 1) [employer] Phone: Comment on above: Postponed from 10/29 (Patient Refused) Start: 04-22-2021 Pneumococcal 0-64 ye ars Vaccine (1 of 1 - PPSV23) Pneumococcal 0-64 years Vaccine (1 of 1 - PPSV23) [employer] Phone: Comment on above: Postponed from 02/19 (Patient Refused) Start: 04-07-2021 DTaP/Tdap/Td vaccine (7 - Td or Tdap) DTaP/Tdap/Td vaccine (7 - Td or Tdap) [employer] Start: 04-07-2021 DTaP/Tdap/Td vaccine (7 - Td) DTaP/Tdap/Td vaccine (7 - Td) [employer] Phone: Start: 07-01-2020 Duplex scan of lower limb veins US venous duplex [facility] Start: 02-20-2016 Screening for malign ant neoplasm of cervix [employer] Start: 2013 Hepatitis C screening Hepatitis C celina roe [facility] [employer] Start: 2010 HIV screening HIV screen [facility] [employer] Start: 2001 Pneumococcal 0-64 ye ars Vaccine (1 - PCV) Pneumococcal 0-64 years Vaccine (1 - PCV) [facility] [employer] Start: 1995 COVID-19 Vaccine (#1) COVID-19 Vacci ne (#1) [facility] [employer] Start: 1995 Hepatitis C screening Hepatitis C celina roe [facility] [employer] Phone: CHLAMYDIA TRACHOMATI S (GENITO/STI) CHLAMYDIA TRACHOMATIS (GENITO/STI) Lab Routine Exposure to STD Ordered: 04/14/2023 [facility] Comment on above: Ordered: 04/14/2023 Cytology Cervical or vaginal smear or scraping study Pap Smear Pathology and Cytology Routine Well woman exam with routine gynecological exam Ordered: 04/14/2023 [facility] Phone: Comment on above: Ordered: 04/14/2023 End: 02-12-2022 IR INJ ARTHROGRAM HIP LEFT IR INJ ARTHROGRAM HIP LEFT Imaging Routine Tear of left acetabular labrum, initial encounter 1 Occurrences starting 02/12/2022 until 02/12/2022 [facility] [employer] Phone: Comment on above: 1 Occurrences starti ng 02/12/2022 until 02/12/2022 Neisseria gonorrhoea e DNA [Presence] in Unspecified specimen by ANNABELLE with probe detection Neisseria gonorrhea DNA probe, direct Lab Routine Exposure to STD Ordered: 04/14/2023 [facility] Comment on above: Ordered: 04/14/2023 SURESWAB(R) ADVANCED VAGINITIS PLUS, TMA SURESWAB(R) ADVANCED VAGINITIS PLUS, TMA Pathology and Cytology Routine Exposure to STD Ordered: 04/14/2023 [facility] [employer] Comment on above: Ordered: 04/14/2023 Immunizations Immunization Date Immunization Notes Care Provider Parker rodrigues 04-07-2011 human papilloma viru s vaccine, quadrivalent [employer] Phone: 04-07-2011 tetanus toxoid, redu julia diphtheria toxoid, and acellular pertussis vaccine, adsorbed [facility] [employer] Phone: 02-04-2010 influenza virus vacc ine, unspecified formulation [facility] Phone: 12-23-2009 human papilloma viru s vaccine, quadrivalent [facility] Phone: 12-23-2009 meningococcal ACWY vaccine, unspecified formulation [facility] Phone: 04-23-2009 human papilloma viru s vaccine, quadrivalent [facility] [employer] Phone: 10-21-2000 diphtheria, tetanus toxoids and acellular pertussis vaccine [facility] Phone: 10-21-2000 measles, mumps and r ubella virus vaccine [facility] Phone: 07-25-1997 diphtheria, tetanus toxoids and acellular pertussis vaccine [facility] Phone: 07-25-1997 hepatitis B vaccine, adult dosage [facility] [employer] Phone: 07-25-1997 hepatitis B vaccine, unspecified formulation [facility] Phone: 07-25-1997 Hib, unspecified [facility] Work Phone: 07-19-1997 poliovirus vaccine, unspecified formulation [facility] Phone: 09-27-1996 diphtheria, tetanus toxoids and acellular pertussis vaccine [facility] [employer] Phone: 09-27-1996 Hib, unspecified [facility] Work Phone: 09-27-1996 measles, mumps and r ubella virus vaccine [facility] Phone: 09-27-1996 poliovirus vaccine, unspecified formulation [facility] [employer] Phone: 1995 diphtheria, tetanus toxoids and acellular pertussis vaccine [employer] Phone: 1995 Hib, unspecified Mirna Bennett [facility] Work Phone: 1995 poliovirus vaccine, unspecified formulation [employer] Phone: 1995 diphtheria, tetanus toxoids and acellular pertussis vaccine [employer] Phone: 1995 hepatitis B vaccine, adult dosage [facility] [address] [facility] [employer] Phone: 1995 hepatitis B vaccine, unspecified formulation [employer] Phone: 1995 Hib, unspecified Mirna Rehan [facility] Work Phone: 1995 poliovirus vaccine, unspecified formulation [employer] Phone: 1995 hepatitis B vaccine, adult dosage [facility] [address] [facility] [employer] Phone: 1995 hepatitis B vaccine, unspecified formulation [employer] Phone: Payers Date Payer Category Payer Unknown BCBS BCBS [id number] 2022[facility] [phone] [address] [place] [address] [id number] 1995 Unknown [id number] 1995 Unknown [id number] 1995 Unknown [id number] 1995 Unknown [id number] 1995 Unknown [id number] 1995 Unknown [id number] 1995 Unknown [id number] 1995 Unknown [id number] 1995 Unknown [id number] 1995 Unknown [id number] 1959 Unknown [id number] Self-pay Self Pay [id number] Unknown Self Pay [id number] Unknown Self Pay [id number] Social History Date Type Detail Facility Start: 02-28-2007 End: 08-14-2022 Tobacco smoking status WIIS Current every day smoker [facility] [employer] Start: 02-28-2007 History of tobacco use Cigarette Smo ker [employer] Phone: Start: 04-22-2020 End: 08-14-2022 Cigarettes smoked current (pack per day) - Reported [employer] Phone: Start: 04-22-2020 End: 12-16-2021 Tobacco use and exposure Never used [employer] Phone: Start: 04-22-2020 End: 03-17-2023 Alcohol intake Current drinker of alcohol (finding) [employer] Phone: Start: 03-24-2015 Alcohol Comment occasional [employer] Work Phone: Start: 1995 Sex Assigned At Not on file M [employer] Work Phone: Start: 1995 Sex Assigned At Female F [facility] Start: 08-14-2022 Sex Assigned At N [facility] Other Start: 02-03-2022 History SDOH Physica l Activity DPW 0 [employer] Work Phone: Start: 03-27-2021 History SDOH Financial 5 BON [employer] Phone: Start: 02-03-2022 History SDOH IPV Fear 2 B ON [employer] Phone: Start: 03-27-2021 History SDOH Food Worry 1 BON [employer] Phone: Start: 01-26-2022 End: 02-05-2022 Exposure to SARS-CoV-2 (event) Not sure [employer] Start: 08-14-2022 Alcohol Comment 1-2 drinks les [...] nursing note reviewed. Exam conducted with a radiology assistant present. Vitals: Estimated body mass index is [...] her MSAFP order do have done at [facility]. Documented by Lauren Crystal MA on behalf of: Kathy Perry DO documented in this encounter [facility] 04-12-2022 Evaluation note Encounter [...] left ear, unspecified type (ICD-10 - H60.502) [employer] Other 12-16-2022 History of Present illness Narrative* Analia Sin RN - 02/12/2022 8:30 AM EST Patient tolerated left hip injections without distress. Dry dressing to site. Patient to MRI for further imaging. documented [facility] [employer] Phone: [phone] Evaluation note* Encounter Date Diagnosis Assessment Notes Treatment Notes Treatment Clinical Notes Nov, Tattoo reaction (ICD-10 - L92.3) Use medication as directed. complete all doses. Recommend unscented soap to [facility] [employer] Other 09-14-2022 Evaluation note* Encounter Date [...] no improvement in 2 to 3 days. [employer] Other 06-20-2022 Evaluation note* Encounter Date [...] days, Tendonitis home care material was printed [employer] Other Evaluation noteNo Assessments Information Available [facility]* Diagnosis Tear of left acetabular labrum, initial encounter documented in this encounter [facility] [employer] Phone: evaluation note* Diagnosis Well woman exam with routine gynecological exam Routine gynecological examination Exposure to STD Encounter for anatomic survey Need for maternal serum alpha-protein (MSAFP) screening Second trimester state, incidental documented in this encounter [facility] N[facility]ative - Reported* Type Description Date Surgical History laparoscopy female Surgical History appendectomy Surgical History bronchoscopy [employer] Other History general Narrative - Reported* Type Description Date Medical History Esophageal reflux Surgical History laparoscopy female Surgical History appendectomy Surgical History bronchoscopy [employer] Other Hospital Discharge instructions* Attachments The following attachments cannot be sent through Care Everywhere. 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 Expl anation ACP-Advance Directive ACP-Power of Flask Cleaner Advance Directive Response Recorded Date/ Time Advance Directives No October 09, 2017 12:18pm Reason for Referral Status Reason Specialty Diagnoses / Procedures Referre d By Contact Referred To Contact Closed Radiology Diagnoses RUQ pain Procedures [place] [address] [place] [address] Specialty Diagnoses / Procedures Referred By Contac t Referred To Contact Radiology Diagnoses Tear of left acetabular labrum, initial encounter Procedures IR [place] [address] [place] [address] Referral ID Status Reason Start Date Expiration Date Visits Re quested Visits Authorized [id number] Closed 02/12/2022 02/12/2023 1 1 Specialty Diagnoses / Procedures Referred By Contac t Referred To Contact Radiology Diagnoses Tear of left acetabular labrum, initial encounter S73.192A (ICD-10-CM) - Tear of left acetabular labrum, initial encounter Procedures IR INJ ARTHROGRAM HIP LEFT IA INJECTION HIP ARTHROGRAM [id number] - [place]JE[place] [address] [place] [address] Referral ID Status Reason Start Date Expiration Date Visits Re quested Visits Authorized [id number] Closed 02/05/2022 02/05/2023 1 1 Chief Complaint and Reason for Visit Chief Complaint Tenderness of left c fpc Summary Purpose Family History No Family History Records FoundNo Family History Records FoundNo Family History Records FoundNo Family History Records FoundNo Family History Records Found Additional Source Comments Reason for Visit (unrecogniz ed section and content) Status Reason Specialty Diagnoses / Procedures Referre d By Contact Referred To Contact Closed Radiology Diagnoses RUQ pain Procedures [place] [address] [employer] [facility] [address] Specialty Diagnoses / Procedures Referred By Contac t Referred To Contact Radiology Diagnoses Tear of left acetabular labrum, initial encounter S73.192A (ICD-10-CM) - Tear of left acetabular labrum, initial encounter Procedures IR INJ ARTHROGRAM HIP LEFT IA INJECTION HIP ARTHROGRAM 12558 - [place] [address] [place] [address] Referral ID Status Reason Start Date Expiration Date Visits Re quested Visits Authorized [id number] Closed 02/05/2022 02/05/2023 1 1 Reason Comments Routine Visit INFORMATION SOURCE (unrecogn ized section and content) DATE CREATED AUTHOR 03/29/2021 [facility] DATE CREATED AUTHOR AUTHOR'S ORGANIZ ATION 08/17/2021 [facility] DATE CREATED AUTHOR AUTHOR'S ORGANIZ ATION 08/18/2021 [facility] DATE CREATED AUTHOR AUTHOR'S ORGANIZ ATION 02/18/2022 [facility] DATE CREATED AUTHOR AUTHOR'S ORGANIZ ATION 06/15/2023 [facility] [employer] Care Teams (unrecognized sec tion and content) Tie Cutter Relationship Specialty [place] [address] [place] [address] [place] [address] PCP - General Family Medicine 03/11/15 FOR [...] BE BASED ON THE PRIMARY CLINICAL RECORDS. [employer] provides no warranty or guarantee of the accuracy or completeness of information in this document.
[2023-07-01 09:07] LABS: Glucose Fasting 93 mg/dL (<95)
[2023-07-01 10:39] LABS: Glucose 1 Hour 165 mg/dL (<180)
[2023-07-01 10:51] LABS: Glucose 2 Hour 172 mg/dL (<155)
[2023-07-01 11:30] LABS: Glucose 3 Hour 122 mg/dL (<140)
== END 2023-07-01 07:19 | disposition home or self-care (01) ==
LOC: LAB 07:18
PROVIDERS: Visit Provider Obstetrics & Gynecology
DX: R73.09 Other abnormal glucose (principal)
CPT/HCPCS: 36415; 82951; 82952

== ENCOUNTER 2023-08-04 07:05 | Outpatient (OUT) | payer BC, SELFPAY ==
--- NOTE | 2023-08-04 | US_ITS ---
[address] [address] Patient Name: DARRIUS VERGARA MRN: [facility]:[id number] date: 1995 Sex: F Assigned Patient Location: [facility] Current Patient Location: [facility] Accession/Order Number: [id number] Exam Date: 08/04/2023 12:50 Report Date: 08/04/2023 13:38 At the request of: KATHY KIMBLE Procedure: US OB BPP w non-stress EXAMINATION: US OB BPP w non-stress HISTORY: CLUB FOOT OF FETUS [id number] COMPARISON: Ultrasound OB follow-up 06/14/2023 TECHNIQUE: Ultrasound biophysical profile was performed in the radiology department. BREATHING MOVEMENTS: 2.0 GROSS BODY MOVEMENTS: 2.0 TONE: 2.0 QUALITATIVE AMNIOTIC FLUID VOLUME: 2.0 PRESENTATION: CEPHALIC HEART RATE: 133.7 bpm bpm. AMNIOTIC FLUID VOLUME: 19.1 cm GESTATIONAL AGE: 32 weeks 3 days CONCLUSION: Total biophysical profile score 8.0. Electronically authenticated by: CR MORENO Date: 08/04/2023 13:38
--- OUTSIDE RECORDS SUMMARY | 2023-08-04 07:08 | XMS_ITS | CCD ---
Author Organization [facility] ion Partnership [facility] Care Team Providers Care Program Assistant Name Role Phone Mirna Bennett Primary Care Provider NO FAMILY, PHYSICIAN Primary Care Provider Unava ilJammie Bhatti Attending Provider Mirna Bennett Primary Care Provider SAMSA ANA Admitting Unavailable SAMSA, ANA Attending Unavailable SAMSA, ANA Consulting Unavailable SAMSA, ANA Admitting Unavailable SAMSA, ANA Attending Unavailable SAMSA ANA Consulting Unavailable AGUBOSIM KELSEY Consulting Unavailable RAAD YARITZA Consulting Unavailable VICKY, DR CHAVEZ Admitting Unavailable VICKY, DR CHAVEZ Attending Unavailable VICKY, DR CHAVEZ Consulting Unavailable Julieth Winkler Unavailable Jammie Terry Unavailable Mirna Bennett MD Primary Care Provider ELICIA GONZALEZ Referring Unavailable MIRNA BENNETT Primary Care Unavailable ELICIA GONZALEZ Referring Unavailable MIRNA BENNETT Primary Care Unavailable Unavailable Primary Care Provider UnavailMIRNA Martinez Referring Unavailable MIRNA BENNETT Primary Care Unavailable ALBERTO JOHNSON Attending Unavailable KATHY PERRY Attending Unavailable KATHY PERRY Attending Unavailable AUBREY CYR Attending Unavailable KATHY PERYR Attending Unavailable KATHY PERRY Attending Unavailable KATHY PERRY Attending Unavailable Allergies Allergy Classification Reported Allergen(s) Allergy Type Date of Onset Reaction(s) Facility (2 sources) Amoxicillin-Pot Clavulanate Propensity to adverse reactions to drug 11-17-19 17 Other (See Comments) [employer] Phone: (3 sources) Bismuth-Containin g Compounds Propensity to adverse reactions to drug 03-24-19 16 [facility] Work Phone: (1 source) bismuth subsalicylate Drug Allergy 10-10-19 18 [facility] (5 sources) bismuth subsalicylate Drug Allergy 12-03-19 21 hives, Other (See Comments) [facility] (2 sources) bismuth subsalicylate Drug Allergy 12-03-19 21 Hives [facility] Work Phone: (2 sources) Bismuth-Containin g Compounds Drug Intolerance 03-24-19 16 [facility] (1 source) bismuth subcarbonate; Translations: [BISMUTH SUBCARBONATE] Drug Allergy 08-16-19 17 [facility] Rep[facility] Medications Current Medications Medication Drug Class(es) Dates [...] 3 12/17/2019 Active 21 day ethinyl estradiol 0.815997 mg/hr / etonogestrel 0.005 mg/hr vaginal system (7 sources) Progestin, Estrogen Start: 06-13-2018 NUVARING 0.12-0.015 MG/24HR vaginal ring NuvaRing Active fluocinonide 0.5 mg/ml topical cream (2 sources) Corticosteroid Start: 07-24-2019 fluocinonide (LIDEX) 0.05 % cream Apply topically 2 times daily. 60 g 1 07/24/2019 Active hydrocortisone 10 mg/ml / neomycin 3.5 mg/ml / polymyxin b 17658 unt/ml otic suspension (1 source) Aminoglycoside Antibacterial, Polymyxin-class Antibacterial, Corticosteroid Start: 04-12-2022 Fctanmgm-Uwvnyaxxd-QA 3.5-63152-4 3 drops left ear Three times a [...] Start: 11-01-2017 take 1 capsule by mo [facility] once daily omeprazole (PRILOSEC) [...] unspecified knee] Onset: 08-16-2022 08-16-2022 Chronic Other complications of ; puerperium affecting management of mother (1 source) Maternal care for (suspected) abnormality and damage, unspecified, not applicable or unspecified; Translations: [Maternal care for (suspected) abnormality and damage, unspecified, not applicable or unspecified] Onset: 07-11-2023 Episodic Other complications of (1 source) Obesity complicating , unspecified trimester; Translations: [Obesity complicating , unspecified trimester] Onset: 07-11-2023 Chronic Other connective tissue disease (1 source) [...] conditions (not mental disorders or infectious disease) (9 sources) Encounter for screening for malignant neoplasm of cervix; Translations: [Patient encounter status] Onset: 08-12-2021 Episodic Other skin disorders (1 source) Foreign body granuloma of the skin and subcutaneous tissue Episodic Otitis media and related conditions (1 source) Otitis media, unspecified, left ear Episodic Residual codes; unclassified (1 source) 29 weeks gestation of ; Translations: [29 weeks gestation of ] Onset: 07-11-2023 Episodic Sprains and strains (2 sources) Acetabular [...] [CONTACT W/AND (SUSP) EXPOS COVID-19] Onset: 06-04-2021 Unclassified (1 source) left club foot Onset: 07-11-2023 Past or Other Problems Problem Classification Problem [...] UA Negative Negative - 4(70) +++ mg/dL [facility] Blood, UA Negative Negative - 50 Bill/mcL [facility] Clarity, UA Clear [facility] Color, UA Yellow [facility] Glucose, UA Negative Negative - 1999(110) ++++ mg/dL [facility] Interpretation and review of laboratory results Abnormal [facility] Ketones, UA Positive Negative - 160(16) ++++ mg/dL [facility] Comment on above: 40 mg Leukocytes, UA Negative Negative - 500+++ Simon/mcL [facility] Nitrite, UA Negative Negative - Positive [facility] pH, UA 7.0 5 - 9 [facility] Protein, UA Trace Negative - 1999(20) ++++ mg/dL [facility] Spec Grav, UA 1.025 1 - 1.03 [facility] Urobilinogen, UA 0.2 0.2 - 12 mg/dL [facility] INJ ARTHROGRAM HIP LEFTon 02-13-2022 IR INJ ARTHROGRAM HIP LEFT EXAMINATION: FLUOROSCOPIC GUIDED LEFT HIP ARTHROGRAM, 02/12/2022 8:45 am COMPARISON: None. HISTORY: ORDERING SYSTEM PROVIDED HISTORY: Tear of left acetabular labrum, initial encounter TECHNOLOGIST PROVIDED HISTORY: Is the patient ?->No FLUOROSCOPY DOSE AND TYPE OR TIME AND EXPOSURES: 54 seconds; D AP 83 cGy cm2 PROCEDURE: PUMPING PLANT OPERATOR: Gaudencio Chávez MD Informed consent was obtained [...] Gaudencio Chávez MD 02/12/22 Final result Normal [facility] IR INJ ARTHROGRAM HIP LEFTon 02-12-2022 Successful fluoroscopic-guided left hip arthrogram. Patient was transferred to MRI for further imaging. [facility] CONSOLIDATED EXAMINATION: FLUOROSCOPIC GUIDED LEFT HIP ARTHROGRAM, 02/12/2022 8:45 am COMPARISON: None. HISTORY: ORDERING SYSTEM PROVIDED HISTORY: Tear of left acetabular labrum, initial encounter TECHNOLOGIST PROVIDED HISTORY: Is the patient ?->No FLUOROSCOPY DOSE AND TYPE OR TIME AND EXPOSURES: 54 seconds; D AP 83 cGy cm2 PROCEDURE: PUMPING PLANT OPERATOR: Gaudencio Chávez MD Informed consent was obtained [...] is sent for subsequent MRI. EBL: None [facility] CONSOLIDATED Gaudencio Chávez MD - 02/12/2022 EXAMINATION: FLUOROSCOPIC GUIDED LEFT HIP ARTHROGRAM, 02/12/2022 8:45 am COMPARISON: None. HISTORY: ORDERING SYSTEM PROVIDED HISTORY: Tear of left acetabular labrum, initial encounter TECHNOLOGIST PROVIDED HISTORY: Is the patient ?->No FLUOROSCOPY DOSE AND TYPE OR TIME AND EXPOSURES: 54 seconds; D AP 83 cGy cm2 PROCEDURE: PUMPING PLANT OPERATOR: Gaudencio Chávez MD Informed consent was obtained [...] was transferred to MRI for further imaging. [facility] Work Phone: Radiology Study observation (narrative) [employer] Phone: IR INJ ARTHROGRAM HIP LEFTOr dered By: Gaudencio Chávez on 02-12-2022 [employer] Phone: MRI HIP LEFT W CONTRASTon MRI [...] Anthony Villanueva MD 02/12/22 Final result Normal [facility] SARS-CoV-2 (COVID-19) RNA NA A+probe Ql (Resp)on 11-11-2021 SARS-CoV-2 (COVID-19) RNA ANNABELLE+probe Ql (Unsp spec) Positive [employer] Other PAP ACOG PANEL 2: 21 to 29on 08-17-2021 . . Normal [facility] [place] Comment on above: Performed By: #### [id number] #### [facility] [address] [place] [address] Dr. Cesar Young Age Gdln ACOG Testing 21- [facility] Comment on above: Performed By: #### [id number] #### [facility] [address] [address] [address] Cesar Young DIAGNOSIS: Comment [facility] Comment on above: Result Comment: NEGA TIVE FOR INTRAEPITHELIAL LESION OR MALIGNANCY. Performed By: #### [id number] #### [facility] [address] [place] [address] Dr. Cesar Young Methodology: Comment [facility] Comment on above: Result Comment: This liquid based ThinPrep(R) pap test was screened with the use of an image guided system. Performed By: #### [id number] #### [facility] [address] [place] [address] Dr. Cesar Young Note: Comment [facility] Comment on above: Result Comment: The Pap smear is a screening test designed to aid in the detection of premalignant and malignant conditions of the uterine cervix. It is not a diagnostic procedure and should not be used as the sole means of detecting cervical cancer. Both false-positive and false-negative reports do occur. . Performed By: #### [id number] #### [facility] [address] [place] [address] Dr. Cesar Young Performed by: Comment Normal [facility] Comment on above: Result Comment: Linda Taveras Professional Nursing Assistant (ASCP) Performed By: #### [id number] #### [facility] [address] [place] [address] Dr. Cesar Young Reflex Criteria: Comment [facility] Comment on above: Result Comment: The HPV DNA reflex criteria were not met with this specimen result therefore, no HPV testing was performed. . Performed By: #### [id number] #### [facility] [address] [address] [address] Cesar Young Specimen adequacy: Comment Normal [facility] Comment on above: Result Comment: Sati sfactory for evaluation. Endocervical and/or squamous metaplastic cells (endocervical component) are present. Performed By: #### 4 [id number] #### [facility] [address] [address] [address] Cesar Young XR hand LT min 3V*on 022 XR hand LT min 3V* [place] [address] XRay Report Signed Patient: Vianey Chen MR#: [id number] 0 : 1995 Acct:[id number] Age/Sex: 26 / F ADM Date: 08/17/21 Loc: [facility] Room: Type: [facility] Attending Dr: Julieth HERNANDEZ Copies to: DAVID [...] M.D.08/17/2021 2:53 PM Dictation Location: [place] [address] Transcribed By: [facility] 08/17/21 145 Dictated By: Ailin Borrego MD 08/17/211450 Signed By: 08/17/211452 Normal [facility] XR hand LT min 3V* [facility] [employer] Other XR hand LT min 3V* [facility] [employer] Other XR hand LT min 3V* [facility] [employer] Other XR hand LT min 3V* SNEHAL Nicolas [address] [employer] Other XR hand LT min 3V* XRay Report [employer] Other XR hand LT min 3V* Signed [employer] Other XR hand LT min 3V* Patient: Vianey Chen MR#: [id number] [employer] Other XR hand LT min 3V* 0 [employer] Other XR hand LT min 3V* : 1995 Acct:[id number] [employer] Other XR hand LT min 3V* Age/Sex: 26 / F ADM Date: 08/17/21 [employer] Other XR hand LT min 3V* Loc: [facility] Room: Type: [facility] [employer] Other XR hand LT min 3V* Attending Dr: Julieth HERNANDEZ [employer] Other XR hand LT min 3V* Copies to: DAVID Salmeron [employer] Other XR hand LT min 3V* Ordering Provider: DAVID Salmeron [employer] Other XR hand LT min 3V* Date of Service: 08/17/21 [employer] Other XR hand LT min 3V* XR/XR hand LT min 3V*: Pain of left thumb [employer] Other XR hand LT min 3V* LEFT HAND - 4 views [employer] Other XR hand LT min 3V* CLINICAL DATA: Patient injured left hand yesterday and has bruising, pain and swelling over the [employer] Other XR hand LT min 3V* metacarpal phalangea l joint of the thumb and at the distal first metacarpal [employer] Other XR hand LT min 3V* COMPARISON: None [employer] Other XR hand LT min 3V* AP, lateral and oblique views were obtained along with a supplemental lateral view at the thumb. [employer] Other XR hand LT min 3V* There is no evidence of fracture or dislocation. There are no significant soft tissue [employer] Other XR hand LT min 3V* abnormalities. No rt [employer] Other XR hand LT min 3V* XR/XR hand LT min 3V* [employer] Other XR hand LT min 3V* IMPRESSION: [employer] Other XR hand LT min 3V* NO ACUTE BONY INJURY. [employer] Other XR hand LT min 3V* Impression dictated by: Ailin Borrego M.D.08/17/2021 2:53 PM [employer] Other XR hand LT min 3V* Dictation Location: [place] [address] [employer] Other XR hand LT min 3V* Transcribed By: GONZALO 08/17/21 [facility] [employer] Other XR hand LT min 3V* Dictated By: Ailin Borrego MD 08/17/21 [facility] [employer] Other XR hand LT min 3V* Signed By: [employer] Other XR hand LT min 3V* 08/17/[address] [place] [address] [employer] Other PREG HCG QUALon 06-04-2021 , QUAL Negative Normal NEGATIVE [facility] Comment on above: Performed By: #### P REG #### [facility] [address], [place] [address] Dr. Cesar Young Covid-19 PCR (CVDTB)on SARS-CoV-2 (COVID-19) RNA ANNABELLE+probe Ql (Unsp spec) Not detected Normal NOT DETECTED [facility] Comment on above: Result Comment: This test is not yet approved or cleared by the [place] FDA. When there are no FDA-approved or cleared tests available, and other criteria are met, FDA can make tests available under an emergency access mechanism called an Emergency Use Authorization (EUA). The EUA for this test is supported by the [place] Tier of Health and Human Service's (HHS's) declaration [...] SARS-CoV-2. Performed By: #### C VDTB #### [facility] [address], [place] [address] Dr. Cesar Young [id number] 03-28-2021 SARS-CoV-2 (COVID-19) RNA ANNABELLE+probe Ql (Unsp spec) Normal [facility] Comment on above: Performed By: #### C OVID #### [place] [id number] Display Decorator: Vijay Tinsley MD SARS-CoV-2 (COVID-19) RNA ANNABELLE+probe Ql (Unsp spec) Detected Abnormal NOTDET [facility] Comment on above: Result Comment: The specimen is POSITIVE for SARS-Cov-2, the novel coronavirus associated with COVID-19. Millie SARS-CoV-2 for use on the Millie [employer]/8800 Systems is a real-time RT-PCR test intended [...] this assay. Fact sheet for Healthcare Providers: https://www.fda.gov/media/788817/download Fact sheet for Patients: https://www.fda.gov/media/252041/download METHODOLOGY: RT-PCR Results reported to the appropriate Health Department Performed By: #### C OVID #### [facility] [address] [place] [address] [id number] Display Decorator: Vijay Tinsley MD [id number] 03-27-2021 SARS-CoV-2 (COVID-19) RNA ANNABELLE+probe Ql (Unsp spec) NOT REPORTED Normal [facility] Comment on above: Performed By: #### C OVID #### [facility] [address] [place] [address] [id number] Display Decorator: Vijay Tinsley MD CBC Auto Differentialon 04-01 Basophils (Bld) [#/Vol] 0.10 10*3/uL [employer] Phone: Basophils/100 WBC (Bld) 1 % 0 - 2 % [employer] Phone: Differential Type NOT REPORTED [employer] Phone: Eosinophils (Bld) [#/Vol] 0.20 10*3/uL [employer] Phone: Eosinophils/100 WBC (Bld) 2 % 0 - 4 % [employer] Phone: Erythrocyte distribution width (RBC) [Ratio] 13.9 % 11.5 - 14.9 % [employer] Phone: Hematocrit (Bld) [Volume fraction] 43.1 % 36 - 46 % [employer] Phone: Hemoglobin (Bld) [Mass/Vol] 14.2 g/dL 12 - 16 g/dL [employer] Phone: Lymphocytes (Bld) [#/Vol] 2.10 10*3/uL [employer] Phone: Lymphocytes/100 WBC (Bld) 25 % 24 - 44 % [employer] Phone: MCH (RBC) [Entitic mass] 28.7 pg 26 - 34 pg [employer] Phone: MCHC (RBC) [Mass/Vol] 33.0 g/dL 31 - 37 g/dL [employer] Phone: MCV (RBC) [Entitic vol] 87.2 fL 80 - 100 fL [employer] Phone: Monocytes (Bld) [#/Vol] 0.60 10*3/uL [employer] Phone: Monocytes/100 WBC (Bld) 7 % 1 - 7 % [employer] Phone: Platelet mean volume (Bld) [Entitic vol] 7.7 fL 6 - 12 fL [employer] Phone: Platelets (Bld) [#/Vol] 359 10*3/uL [employer] Phone: Platelets (Bld) [#/Vol] NOT REPORTED [employer] Phone: RBC (Bld) [#/Vol] 4.94 10*6/uL 4 - 5.2 m/uL [employer] Phone: RBC morphology finding Nom (Bld) NOT REPORTED [employer] Work Phone: Segmented neutrophils/100 WBC (Bld) 65 % 36 - 66 % [facility] [employer] Work Phone: Segs Absolute 5.40 [facility] Work Phone: WBC (Bld) [#/Vol] NOT REPORTED per 100 WBC [facility] [employer] Work Phone: WBC (Bld) [#/Vol] 8.4 10*3/uL [facility] [employer] Work Phone: WBC Morphology NOT REPORTED [facility] Work Phone: Comprehensive Metabolic Pane dawit 04-24-2020 Albumin [Mass/Vol] 3.9 g/dL 3.5 - 5.2 g/dL [place] [employer] Work Phone: Albumin/Globulin [Mass ratio] NOT REPORTED [facility] [employer] Work Phone: ALP [Catalytic activity/Vol] 59 U/L 35 - 104 U/L [facility] [employer] Work Phone: ALT [Catalytic activity/Vol] 19 U/L 5 - 33 U/L [facility] [employer] Work Phone: Anion gap [Moles/Vol] 10 mmol/L 9 - 17 mmol/L [facility] [employer] Work Phone: AST [Catalytic activity/Vol] 15 U/L <32 [facility] [employer] Work Phone: Bilirubin Ql (U) <0.15 Low 0.3 - 1.2 mg/dL [facility] [employer] Work Phone: Bun/Cre Ratio NOT REPORTED [facility] Work Phone: Calcium [Mass/Vol] 9.2 mg/dL 8.6 - 10. 4 mg/dL [facility] [employer] Work Phone: Chloride [Moles/Vol] 104 mmol/L 98 - 107 mmol/L [facility] [employer] Work Phone: CO2 [Moles/Vol] 25 mmol/L 20 - 31 mmol/L [facility] Phone: Creatinine [Mass/Vol] 0.68 mg/dL 0.5 - 0.9 mg/dL [facility] Phone: GFR >60 >60 mL/min [facility] Phone: GFR Non- >60 >60 mL/min [facility] Phone: GFR/1.73 sq M predicted among non-blacks MDRD (S/P/Bld) [Vol rate/Area] [facility] Phone: Comment on above: Average GFR for 20-2 9 years old: 116 mL/min/1.73sq m Chronic Kidney Disease: <60 mL/min/1.73sq m Kidney failure: <15 mL/min/1.73sq m eGFR calculated using average adult body mass. Additional eGFR calculator available at: http://www.[employer]/multiple_crcl_2012.htm GFR/1.73 sq M predicted among non-blacks MDRD (S/P/Bld) [Vol rate/Area] NOT REPORTED [facility] Phone: Glucose [Mass/Vol] 135 mg/dL High 70 - 99 mg/dL [facility] [employer] Phone: Interpretation and review of laboratory results Abnormal [facility] Phone: Potassium [Moles/Vol] 3.7 mmol/L 3.7 - 5.3 mmol/L [facility] Phone: Protein [Mass/Vol] 7.1 g/dL 6.4 - 8.3 g/dL [place] [employer] Phone: Sodium [Moles/Vol] 139 mmol/L 135 - 144 mmol/L [facility] Phone: Urea nitrogen [Mass/Vol] 11 mg/dL 6 - 20 mg/dL [facility] Phone: Otheron 02-25-2021 Immature granulocytes (Bld) [#/Vol] NOT REPORTED 0 % [employer] Phone: US GALLBL[employer]DER RUQon 021 Unremarkable right upper quadrant ultrasound. [employer] Phone: EXAMINATION: RIGHT UPPER QUADRANT ULTRASOUND 04/24/2020 [...] No evidence of right upper quadrant ascites. [employer] Phone: [place], [facility] Incoming Radiant Results From [employer] - 04/24/2020 8:18 AM EST EXAMINATION: RIGHT [...] ascites. IMPRESSION: Unremarkable right upper quadrant ultrasound. [employer] Phone: Vital Signs Date Time Vital Sign Value Performing Clinician Facility 04-14-2023 10:54-0500 Body mass index (BMI) [Ratio] 44.14 kg/m2 [employer] Phone: [facility] 04-14-2023 10:54-0500 Body weight 102.51 kg Kathy Vicky DO Work Phone: [facility] [email or web address] 04-14-2023 10:54-0500 Diastolic blood pressure 70 mm[Hg] Kathy Vicky DO Work Phone: [facility] [email or web address] 04-14-2023 10:54-0500 Systolic blood pressure 120 mm[Hg] Kathy Vicky DO Work Phone: [facility] 04-12-2022 10:30-0500 Body height 152.4 cm Julieth Cathi Other [employer] Other 04-12-2022 10:30-0500 Body mass index (BMI) [Ratio] 41.59 kg/m2 Julieth Cathi Other [employer] Other 04-12-2022 10:30-0500 Body temperature 98.5 [degF] Julieth Cathi Other [employer] Other 04-12-2022 10:30-0500 Body weight 96.62 kg Julieth Cathi Other [employer] Other 04-12-2022 10:30-0500 Diastolic blood pressure 87 mm[Hg] Julieth Cathi Other [employer] Other 04-12-2022 10:30-0500 Respiratory rate 18 /min Julieth Cathi Other [employer] Other 04-12-2022 10:30-0500 SaO2% (BldA) [Mass fraction] 98 % Julieth Cathi Other [employer] Other 04-12-2022 10:30-0500 Systolic blood pressure 141 mm[Hg] Juliethmark Winkler Other [employer] Other 11-30-2021 17:00-0400 Body height 152.4 cm Jammie Terry Other [employer] Other 11-30-2021 17:00-0400 Body mass index (BMI) [Ratio] 39.06 kg/m2 Jammie Terry Other [employer] Other 11-30-2021 17:00-0400 Body temperature 97.6 [degF] Jammie Terry Other [employer] Other 11-30-2021 17:00-0400 Body weight 90.72 kg Jammie Terry Other [employer] Other 11-30-2021 17:00-0400 Diastolic blood pressure 84 mm[Hg] Jammie Terry Other [employer] Other 11-30-2021 17:00-0400 Respiratory rate 18 /min Jammie Terry Other [employer] Other 11-30-2021 17:00-0400 SaO2% (BldA) [Mass fraction] 99 % Jammie Terry Other [employer] Other 11-30-2021 17:00-0400 Systolic blood pressure 132 mm[Hg] Jammie Terry Other [employer] Other 11-11-2021 10:30-0400 Body height 152.4 cm Julieth Winkler Other [employer] Other 11-11-2021 10:30-0400 Body mass index (BMI) [Ratio] 37.1 kg/m2 Julieth Cathi Other [employer] Other 11-11-2021 10:30-0400 Body temperature 98.1 [degF] Julieth Cathi Other [employer] Other 11-11-2021 10:30-0400 Body weight 86.18 kg Julieth Cathi Other [employer] Other 11-11-2021 10:30-0400 Respiratory rate 18 /min Julieth Cathi Other [employer] Other 11-11-2021 10:30-0400 SaO2% (BldA) [Mass fraction] 99 % Julieth Cathi Other [employer] Other 08-17-2021 14:55-0400 Body height 152.4 cm Julieth Cathi Other [employer] Other 08-17-2021 14:55-0400 Body mass index (BMI) [Ratio] 39.84 kg/m2 Julieth Cathi Other [employer] Other 08-17-2021 14:55-0400 Body temperature 97.8 [degF] Julieth Cathi Other [employer] Other 08-17-2021 14:55-0400 Body weight 92.53 kg Julieth Cathi Other [employer] Other 08-17-2021 14:55-0400 Diastolic blood pressure 74 mm[Hg] Julieth Cathi Other [employer] Other 08-17-2021 14:55-0400 Respiratory rate 18 /min Julieth Cathi Other [employer] Other 08-17-2021 14:55-0400 SaO2% (BldA) [Mass fraction] 99 % Julieth Cathi Other [employer] Other 08-17-2021 14:55-0400 Systolic blood pressure 134 mm[Hg] Julieth Cathi Other [employer] Other Encounters Encounter Date Encounter Type Care Provider Facility Start: 07-19-2023 End: 07-19-2023 ambulatory KATHY VICKY Not Available Start: 07-11-2023 End: 07-11-2023 ambulatory [facility] Start: 07-07-2023 End: 07-07-2023 ambulatory KATHY VICKY Not Available Start: 06-14-2023 End: 06-14-2023 ambulatory KATHY VICKY Not Available Start: 05-12-2023 End: 05-12-2023 ambulatory AUBREY CYR Not Available Start: 04-14-2023 End: 04-14-2023 ambulatory KATHY VICKY Not Available Start: 04-14-2023 End: 04-14-2023 Patient encounter procedure Kathy Vicky DO Work Phone: [facility] Start: 04-14-2023 End: 04-14-2023 Periodic preventive med est patient 18-39 yrs Kathy Vicky DO Work Phone: [facility] Comment on above: Well woman exam with routine gynecological exam; Exposure to STD; Encounter for anatomic survey; Need for maternal serum alpha-protein (MSAFP) screening; Second trimester Start: 03-17-2023 End: 03-17-2023 ambulatory KATHY VICKY Not Available Start: 02-17-2023 End: 02-17-2023 ambulatory KATHY VICKY Not Available Start: 04-12-2022 End: 04-12-2022 ambulatory Julieth Winkler Other [employer] Other Start: 04-12-2022 Office outpatient vi sit 15 minutes Julieth Cathi [facility] Start: 02-12-2022 End: 02-15-2022 ambulatory ELICIA GONZALEZ [facility] Start: 02-12-2022 End: 02-14-2022 Subsequent hospital visit by physician Reinier Ir Nurse 1 [facility] Special Procedures Comment on above: Tear of left acetabu lar labrum, initial encounter Start: 11-30-2021 End: 11-30-2021 ambulatory Jammie Terry Other [employer] Other Start: 11-30-2021 Office outpatient vi sit 15 minutes Jammie Mara [facility] Start: 11-11-2021 End: 11-11-2021 ambulatory Julieth Cathi Other [employer] Other Start: 11-11-2021 Office outpatient vi sit 15 minutes Julieth Cathi [facility] Start: 08-17-2021 End: 08-17-2021 ambulatory Julieth Cathi Other [employer] Other Start: 08-17-2021 Office outpatient vi sit 15 minutes Julieth Cathi [facility] Start: 08-12-2021 End: 08-12-[address] KATHY PERRY Facility:H1 Start: 06-04-2021 Encounter for preprocedural laboratory examination [facility] Start: 06-04-2021 End: 06-04-2021 ambulatory [facility] Facility:H1 Start: 06-02-2021 End: 06-03-2021 ambulatory [facility] Facility:[facility]1 Start: 06-02-2021 End: 06-03-2021 Encounter for preprocedural laboratory examination [facility] Facility:H1 Start: 07-01-2020 End: 07-01-2020 Patient encounter procedure PHYSICIAN NO FAMILY -Ultrasound [facility] [place] Start: 06-27-2020 End: 06-27-2020 Patient encounter procedure [facility]ICIAN [facility] Start: 04-24-2020 End: 04-24-2020 Subsequent hospital visit by physician Mirna FERNÁNDEZ Laboratory Comment on above: RUQ pain Start: 04-24-2020 End: 04-26-2020 Subsequent hospital visit by physician Ultrasound Rm 105 [facility] Ultrasound Comment on above: RUQ pain Start: 05-26-2015 End: 11-24-2017 Patient encounter status [facility] [address] [facility] Procedures Date Procedure Procedure Detail Performing Clinician Start: 04-14-2023 Urnls dip stick/tabl et rgnt non-auto w/o micrscp Kathy Vicky DO Work Phone: Start: 02-12-2022 IR ARTHROGRAM [...] (MSAFP) screening Expected: 04/14/2023 (Approximate), Expires: 05/13/2023 [facility] Comment on above: Expected: 04/14/2023 (Approximate), Expires: 05/13/2023 Start: 04-14-2023 End: 04-14-2024 US for US OB ANATOMY SINGLE W US OB CERVICAL LENGTH Imaging Routine Encounter for anatomic survey Expected: 04/14/2023 (Approximate), Expires: 04/14/2024 [facility] Comment on above: Expected: 04/14/2023 (Approximate), Expires: 04/14/2024 Start: 03-27-2022 Depression Monitoring Depression Mon itoring [facility] Start: 09-28-2021 Influenza vaccination Flu vaccine (# 1) [facility] Start: 04-22-2021 [facility] Comment on above: Postponed from 10/29 (Patient Refused) Start: 04-22-2021 Pneumococcal 0-64 ye ars Vaccine (1 of 1 - PPSV23) Pneumococcal 0-64 years Vaccine (1 of 1 - PPSV23) [facility]: Comment on above: Postponed from 02/19 (Patient Refused) Start: 04-07-2021 DTaP/Tdap/Td vaccine (7 - Td or Tdap) DTaP/Tdap/Td vaccine (7 - Td or Tdap) [facility] Start: 04-07-2021 DTaP/Tdap/Td vaccine (7 - Td) DTaP/Tdap/Td vaccine (7 - Td) [facility]: Start: 07-01-2020 Duplex scan of lower limb veins US venous duplex [facility] Start: 02-20-2016 Screening for malign ant neoplasm of cervix [facility] Start: 2013 Hepatitis C screening Hepatitis C [facility] Start: 2010 HIV screening HIV screen [facility] Start: 2001 Pneumococcal 0-64 ye ars Vaccine (1 - PCV) Pneumococcal 0-64 years Vaccine (1 - PCV) [facility] Start: 1995 COVID-19 Vaccine (#1) COVID-19 Vacci ne (#1) [facility] Start: 1995 Hepatitis C screening Hepatitis C [facility] [employer] Phone: CHLAMYDIA TRACHOMATI S (GENITO/STI) CHLAMYDIA TRACHOMATIS (GENITO/STI) Lab Routine Exposure to STD Ordered: 04/14/[address] [facility] Comment on above: Ordered: 04/14/2023 Cytology Cervical or vaginal smear or scraping study Pap Smear Pathology and Cytology Routine Well woman exam with routine gynecological exam Ordered: 04/14/2023 [facility] [email or web address] Work Phone: Comment on above: Ordered: 04/14/2023 End: 02-12-2022 IR INJ ARTHROGRAM HIP LEFT IR INJ ARTHROGRAM HIP LEFT Imaging Routine Tear of left acetabular labrum, initial encounter 1 Occurrences starting 02/12/2022 until 02/12/2022 MAI KRYSTIN [employer] Phone: Comment on above: 1 Occurrences starti ng 02/12/2022 until 02/12/2022 Neisseria gonorrhoea e DNA [Presence] in Unspecified specimen by ANNABELLE with probe detection Neisseria gonorrhea DNA probe, direct Lab Routine Exposure to STD Ordered: 04/14/2023 [facility] Comment on above: Ordered: 04/14/2023 SURESWAB(R) ADVANCED VAGINITIS PLUS, TMA SURESWAB(R) ADVANCED VAGINITIS PLUS, TMA Pathology and Cytology Routine Exposure to STD Ordered: 04/14/2023 [facility] Comment on above: Ordered: 04/14/2023 Immunizations Immunization Date Immunization Notes Care Provider Parker rodrigues 04-07-2011 human papilloma viru s vaccine, quadrivalent [employer] Phone: 04-07-2011 tetanus toxoid, redu julia diphtheria toxoid, and acellular pertussis vaccine, adsorbed [employer] Phone: 02-04-2010 influenza virus vacc ine, unspecified formulation [employer] Phone: 12-23-2009 human papilloma viru s vaccine, quadrivalent [employer] Phone: 12-23-2009 meningococcal ACWY vaccine, unspecified formulation [employer] Phone: 04-23-2009 human papilloma viru s vaccine, quadrivalent [employer] Phone: 10-21-2000 diphtheria, tetanus toxoids and acellular pertussis vaccine [employer] Phone: 10-21-2000 measles, mumps and r ubella virus vaccine [employer] Work Phone: 07-25-1997 diphtheria, tetanus toxoids and acellular pertussis vaccine [employer] Work Phone: 07-25-1997 hepatitis B vaccine, adult dosage [facility] [employer] Work Phone: 07-25-1997 hepatitis B vaccine, unspecified formulation [employer] Work Phone: 07-25-1997 Hib, unspecified Mirna Bennett [facility] Work Phone: 07-19-1997 poliovirus vaccine, unspecified formulation [employer] Work Phone: 09-27-1996 diphtheria, tetanus toxoids and acellular pertussis vaccine [employer] Work Phone: 09-27-1996 Hib, unspecified Mirna Bennett [facility] Work Phone: 09-27-1996 measles, mumps and r ubella virus vaccine [employer] Work Phone: 09-27-1996 [facility], unspecified [facility] Work Phone: 1995 diphtheria, tetanus toxoids and acellular pertussis vaccine [employer] Phone: 1995 Hib, unspecified Mirna Bennett [facility] Work Phone: 1995 poliovirus vaccine, unspecified formulation [employer] Work Phone: 1995 diphtheria, tetanus toxoids and acellular pertussis vaccine [employer] Work Phone: 1995 hepatitis B vaccine, adult dosage [facility] [employer] Work Phone: 1995 hepatitis B vaccine, unspecified formulation [employer] Work Phone: 1995 Hib, unspecified Mirna Bennett [facility] [employer] Work Phone: 1995 poliovirus vaccine, unspecified formulation Mirna Bennett [facility] Work Phone: 1995 hepatitis B vaccine, adult dosage [facility] Work Phone: 1995 hepatitis B vaccine, unspecified formulation Mirna Bennett [facility] Work Phone: Payers Date Payer Category Payer Unknown BCBS BCBS [id number] 2022-Present [phone] [address] [place] [address] [id number] 1995 Unknown [id number] [id number] 1995 Unknown [id number] [id number] 1995 Unknown [id number] [id number] 1995 Unknown [id number] [id number] 1995 Unknown [id number] [id number] 1995 Unknown [id number] [id number] 1995 Unknown [id number] [id number] 1995 Unknown [id number] 2.16.840.1.123746.3.579.2.1259 1995 Unknown [id number] 2.16.840.1.520931.3.579.2.1259 1995 Unknown [id number] [id number] 1995 Unknown [id number] 2.16.840.1.536050.3.579.2.9 1995 Unknown [id number] [id number] 1995 Unknown [id number] [id number] 1995 Unknown [id number] [id number] 1959 Unknown [id number] Self-pay Self Pay [id number] Unknown Self Pay [id number] Unknown Self Pay [id number] Social History Date Type Detail Facility Start: 02-28-2007 End: 08-14-2022 Tobacco smoking status [facility] Current every day smoker MAI MCCLELLAND [employer] Start: 02-28-2007 History of tobacco use Cigarette Smo ker [employer] Phone: Start: 04-22-2020 End: 08-14-2022 Cigarettes smoked current (pack per day) - Reported [employer] Phone: Start: 04-22-2020 End: 12-16-2021 Tobacco use and exposure Never used [employer] Phone: Start: 04-22-2020 End: 03-17-2023 Alcohol intake Current drinker of alcohol (finding) [employer] Phone: Start: 03-24-2015 Alcohol Comment occasional [employer] [facility] Work Phone: Start: 1995 Sex Assigned At Not on file M [employer] Work Phone: Start: 1995 Sex Assigned At Female F [facility] Start: 08-14-2022 Sex Assigned At N [facility] [employer] Other Start: 02-03-2022 History SDOH Physica l Activity DPW 0 [facility] [employer] Work Phone: Start: 03-27-2021 History SDOH Financial 5 [facility] [employer] Work Phone: Start: 02-03-2022 History SDOH IPV Fear 2 B ON [employer] Phone: Start: 03-27-2021 History SDOH Food Worry 1 BON [employer] Phone: Start: 01-26-2022 End: 02-05-2022 Exposure to SARS-CoV-2 (event) Not sure [employer] Start: 08-14-2022 Alcohol Comment 1-2 drinks les [...] nursing note reviewed. Exam conducted with a full stack php developer present. Vitals: Estimated body mass index is [...] her MSAFP order do have done at [facility]. Documented by Lauren Crystal MA on behalf of: Kathy Perry DO documented in this encounter [facility] 04-12-2022 Evaluation note Encounter Date Diagnosis Assessment [...] left ear, unspecified type (ICD-10 - H60.502) [employer] Other 12-16-2022 History of Present illness Narrative* Analia Sin RN - 02/12/2022 8:30 AM EST Patient tolerated left hip injections without distress. Dry dressing to site. Patient to MRI for further imaging. [facility] Phone: [phone] 340-491110-03-2022 Evaluation note* Encounter Date Diagnosis Assessment Notes Treatment Notes Treatment Clinical Notes Nov, Tattoo reaction (ICD-10 - L92.3) Use medication as directed. complete all doses. Recommend unscented soap to area [employer] Other 09-14-2022 Evaluation note* Encounter Date Diagnosis [...] no improvement in 2 to 3 days. [employer] Other 06-20-2022 Evaluation note* Encounter Date Diagnosis [...] days, Tendonitis home care material was printed [employer] Other Evaluation noteNo Assessments Information Available [facility] Diagnosis Tear of left acetabular labrum, initial encounter documented in this encounter [facility] [employer] Phone: evaluation note* Diagnosis Well woman exam with routine gynecological exam Routine gynecological examination Exposure to STD Encounter for anatomic survey Need for maternal serum alpha-protein (MSAFP) screening Second trimester state, incidental documented in this encounter [facility] N[facility]ative - Reported* Type Description Date Surgical History laparoscopy female Surgical History appendectomy Surgical History bronchoscopy [employer] Other History general Narrative - Reported* Type Description Date Medical History Esophageal reflux Surgical History laparoscopy female Surgical History appendectomy Surgical History bronchoscopy [employer] Other Hospital Discharge instructions* Attachments The following attachments cannot be sent through Care Everywhere. * Joint Injections (Khmer) [facility] [employer] Phone: Assessments Diagnosis RUQ pain Abdominal pain, right upper quadrant Diagnosis RUQ pain Abdominal pain, right upper quadrant Advance Directives No Advanced Directives Records FoundDocuments on File Type Date Recorded Patient Critical Care Physician Expl anation ACP-Advance Directive ACP-Power of [employer] Material Inspector Documents on File Type Date Recorded Patient Critical Care Physician Expl anation ACP-Advance Directive ACP-Power of [employer] Material Inspector Advance Directive Response Recorded Date/ Time Advance Directives No October 09, 2017 12:18pm Reason for Referral Status Reason Specialty Diagnoses / Procedures Referre d By Contact Referred To Contact Closed Radiology Diagnoses RUQ pain Procedures US GALLBLADDER RUQ Camron Alicea, LALA [address] [place] [address] Specialty Diagnoses / Procedures Referred By Contac t Referred To Contact Radiology Diagnoses Tear of left acetabular labrum, initial encounter Procedures IR [place] [address] [place] [address] Referral ID Status Reason Start Date Expiration Date Visits Re quested Visits Authorized [id number] Closed 02/12/2022 02/12/2023 1 1 Specialty Diagnoses / Procedures Referred By Anupama t Referred To Contact Radiology Diagnoses Tear of left acetabular labrum, initial encounter S73.192A (ICD-10-CM) - Tear of left acetabular labrum, initial encounter Procedures IR INJ ARTHROGRAM HIP LEFT AR INJECTION HIP ARTHROGRAM - AR [place]JECTION [place] [address] [place] [address] Referral ID Status Reason Start Date Expiration Date Visits Re quested Visits Authorized [id number] Closed 02/05/2022 02/05/2023 1 1 Chief Complaint and Reason for Visit Chief Complaint Tenderness of left c snf Summary Purpose Family History No Family History [...] Procedures [place] [address] [place] [address] Specialty Diagnoses / Procedures Referred By Anupama martinez Referred To Contact Radiology Diagnoses Tear of left acetabular labrum, initial encounter S73.192A (ICD-10-CM) - Tear of left acetabular labrum, initial encounter Procedures IR INJ ARTHROGRAM HIP LEFT AR INJECTION HIP ARTHROGRAM - AR [place]JE[place] [address] [place] [address] Referral ID Status Reason Start Date Expiration Date Visits Re quested Visits Authorized [id number] Closed 02/05/2022 02/05/2023 1 1 Reason Comments Routine Visit INFORMATION SOURCE (unrecogn ized section and content) DATE CREATED AUTHOR 03/29/2021 [facility] DATE CREATED AUTHOR AUTHOR'S ORGANIZ ATION 08/17/2021 [facility] DATE CREATED AUTHOR AUTHOR'S ORGANIZ ATION 08/18/2021 [facility] DATE CREATED AUTHOR AUTHOR'S ORGANIZ ATION 02/18/2022 [facility] DATE CREATED AUTHOR AUTHOR'S ORGANIZ ATION 07/12/2023 [facility] DATE CREATED AUTHOR AUTHOR'S ORGANIZ ATION 07/21/2023 [facility] Specialists [employer] Care Teams (unrecognized sec tion and content) Program Assistant Relationship Specialty [place] [address] [facility] [place] [address] PCP - General Family Medicine 03/11/15 FOR [...] BE BASED ON THE PRIMARY CLINICAL RECORDS. [employer] [facility]. provides no warranty or guarantee of the accuracy or completeness of information in this document.
[2023-08-04 13:14] VITALS: BP 128/71; PULSE 85
== END 2023-08-04 13:59 | disposition home or self-care (01) ==
LOC: US 07:05 → FBC 12:44
PROVIDERS: Visit Provider Obstetrics & Gynecology
DX: O35.HXX0 Maternal care for other (suspected) fetal abnormality and damage, fetal lower extremities anomalies, not applicable or unspecified (principal); Z3A.32 32 weeks gestation of pregnancy
CPT/HCPCS: 76818

== ENCOUNTER 2023-08-17 07:12 | Outpatient (OUT) | payer BC, SELFPAY ==
--- OUTSIDE RECORDS SUMMARY | 2023-08-17 07:14 | XMS_ITS | CCD ---
Author Organization [facility] Care Team Providers Care Home Care Nurse Name Role Phone Mirna Bennett Primary Care Provider NO FAMILY, PHYSICIAN Primary Care Provider Unava Jammie Levy Attending Provider Mirna Bennett Primary Care Provider SAMSA ANA Admitting Unavailable SAMSA, ANA Attending Unavailable SAMSA ANA Consulting Unavailable SAMSA, ANA Admitting Unavailable SAMSA, ANA Attending Unavailable SAMSAANA Consulting Unavailable AGUBOSIM KELSEY Consulting Unavailable RAAD YARITZA Consulting Unavailable DR KATHY PERRY Admitting [...] CYR Attending Unavailable KATHY PERRY Attending Unavailable KATHY PERRY Attending Unavailable KATHY PERRY Attending Unavailable KATHY PERRY Attending Unavailable MIRNA BENNETT Referring Unavailable MIRNA BENNETT Primary Care Unavailable ALBERTO JOHNSON Attending Unavailable MIRNA BENNETT Referring Unavailable MIRNA BENNETT Primary Care Unavailable PERRY BURT Attending Unavailable Allergies Allergy Classification Reported Allergen(s) Allergy Type Date of Onset Reaction(s) Facility (2 sources) Amoxicillin-Pot Clavulanate Propensity to adverse reactions to drug 11-17-19 17 Other (See Comments) [facility] Phone: (3 sources) Bismuth-Containin g Compounds Propensity to adverse reactions to drug 03-24-19 16 [facility] Work Phone: (1 source) bismuth subsalicylate Drug Allergy 10-10-19 18 [facility] (5 sources) bismuth subsalicylate Drug Allergy 12-03-19 21 hives, Other (See Comments) [facility] (2 sources) bismuth subsalicylate Drug Allergy 12-03-19 21 Hives [facility] Work Phone: (2 sources) Bismuth-Containin g Compounds Drug Intolerance 03-24-19 16 [facility] (1 source) bismuth subcarbonate; Translations: [BISMUTH [...] 3 12/17/2019 Active 21 day ethinyl estradiol 0.580871 mg/hr / etonogestrel 0.005 mg/hr vaginal system (7 sources) Progestin, Estrogen Start: 06-13-2018 NUVARING 0.12-0.015 MG/24HR vaginal ring NuvaRing Active fluocinonide 0.5 mg/ml topical cream (2 sources) Corticosteroid Start: 07-24-2019 fluocinonide (LIDEX) 0.05 % cream Apply topically 2 times daily. 60 g 1 07/24/2019 Active hydrocortisone 10 mg/ml / neomycin 3.5 mg/ml / polymyxin b 19903 unt/ml otic suspension (1 source) Aminoglycoside Antibacterial, Polymyxin-class Antibacterial, Corticosteroid Start: 04-12-2022 Xljwfnqm-Ltajtpmbj-OG 3.5-63172-8 3 drops left ear Three times a [...] EXPOS COVID-19] Onset: 06-04-2021 Unclassified (1 source) Maternal care for other (suspected) abnormality and damage, lower extremities anomalies, not applicable or unspecified; Translations: [Maternal care for other (suspected) abnormality and damage, lower extremities anomalies, not applicable or unspecified] Onset: 08-10-2023 Unclassified (1 source) left club foot Onset: [...] UA Negative Negative - 4(70) +++ mg/dL [facility] Blood, UA Negative Negative - 50 Bill/mcL [facility] Clarity, UA Clear [facility] Color, UA Yellow [facility] Glucose, UA Negative Negative - 2000(110) ++++ mg/dL [facility] Interpretation and review of laboratory results Abnormal [facility] re Ketones, UA Positive Negative - 160(16) ++++ mg/dL [facility] Comment on above: 40 mg Leukocytes, UA Negative Negative - 500+++ Simon/mcL [facility] Nitrite, UA Negative Negative - Positive [facility] pH, UA 7.0 5 - 9 [facility] e Protein, UA Trace Negative - 2000(20) ++++ mg/dL [facility] Spec Grav, UA 1.025 1 - 1.03 [facility] Urobilinogen, UA 0.2 0.2 - 12 mg/dL [facility] IR INJ ARTHROGRAM HIP LEFTon 02-13-2022 IR INJ ARTHROGRAM HIP LEFT EXAMINATION: FLUOROSCOPIC GUIDED LEFT HIP ARTHROGRAM, 02/12/2022 8:45 am COMPARISON: None. HISTORY: ORDERING SYSTEM PROVIDED HISTORY: Tear of left acetabular labrum, initial encounter TECHNOLOGIST PROVIDED HISTORY: Is the patient ?->No FLUOROSCOPY DOSE AND TYPE OR TIME AND EXPOSURES: 54 seconds; D AP 83 cGy cm2 PROCEDURE: MAKE READY WORKER: Gaudencio Chávez MD Informed consent was obtained [...] Gaudencio Chávez MD 02/12/22 Final result Normal [facility] IR INJ ARTHROGRAM HIP LEFTon [...] seconds; D AP 83 cGy cm2 PROCEDURE: MAKE READY WORKER: Gaudencio Chávez MD Informed consent was obtained [...] seconds; D AP 83 cGy cm2 PROCEDURE: MAKE READY WORKER: Gaudencio Chávez MD Informed consent was obtained [...] was transferred to MRI for further imaging. [employer] Phone: Radiology Study observation (narrative) [employer] Phone: IR INJ ARTHROGRAM HIP LEFTOr dered By: Gaudencio Chávez on 02-12-2022 [employer] Phone: MRI HIP LEFT W CONTRASTon MRI [...] Anthony Villanueva MD 02/12/22 Final result Normal [facility] SARS-CoV-2 (COVID-19) RNA NA A+probe Ql (Resp)on 11-11-2021 SARS-CoV-2 (COVID-19) RNA ANNABELLE+probe Ql (Unsp spec) Positive [facility] Other PAP ACOG PANEL 2: 21 to 29on 08-17-2021 . . Normal [facility] [place] [facility] Comment on above: Performed By: #### [id number] #### [facility] [address] [place] [address] Dr. Cesar Young Age Gdln ACOG Testing [facility] Comment on above: Performed By: #### [id number] #### [facility] [address] [place] [address] Dr. Cesar Young DIAGNOSIS: Comment [facility] Comment on above: Result Comment: NEGA TIVE FOR INTRAEPITHELIAL LESION OR MALIGNANCY. Performed By: #### [id number] #### [facility] [address] [place] [address] Dr. Cesar Young Methodology: Comment [facility] Comment on above: Result Comment: This liquid based ThinPrep(R) pap test was screened with the use of an image guided system. Performed By: #### [id number] #### [facility] [address] [place] [address] Dr. Cesar Young Note: Comment [facility] Comment on above: Result Comment: The Pap smear is a screening test designed to aid in the detection of premalignant and malignant conditions of the uterine cervix. It is not a diagnostic procedure and should not be used as the sole means of detecting cervical cancer. Both false-positive and false-negative reports do occur. . Performed By: #### [id number] #### [facility] [address] [place] [address] Dr. Cesar Young Performed by: Comment [facility] Comment on above: Result Comment: Linda Taveras, Manager Department (ASCP) Performed By: #### [id number] #### [facility] [address] [place] [address] Dr. Cesar Young Reflex Criteria: Comment Normal [facility] Comment on above: Result Comment: The HPV DNA reflex criteria were not met with this specimen result therefore, no HPV testing was performed. . Performed By: #### [id number] #### [facility] Laboratory [address] [address] [address] Cesar Young Specimen adequacy: Comment Normal [facility] Comment on above: Result Comment: Sati sfactory for evaluation. Endocervical and/or squamous metaplastic cells (endocervical component) are present. Performed By: #### [id number] #### [facility] Laboratory [address] [place] [address] Dr. Cesar Young XR hand LT min 3V*on 022 XR hand LT min 3V* [facility] [place] [address] [place] [address] XRay Report Signed Patient: Vianey Chen MR#: [id number] 0 : 1995 Acct:[id number] Age/Sex: 26 / F ADM Date: 08/17/21 Loc: XDUCLY Room: Type: [facility] Attending Dr: Julieth HERNANDEZ Copies to: DAVID [...] Ailin Borrego M.D.08/17/2021 2:53 PM Dictation Location: [id number] Transcribed By: GONZALO 08/17/21 1453 Dictated By: Ailin Borrego MD 08/17/21 1451 Signed By: 08/17/21 1453 Normal [facility] XR hand LT min 3V* [facility] [employer] Other XR hand LT min 3V* [facility] [place] [employer] Other XR hand LT min 3V* [address] [facility] Other XR hand LT min 3V* [place] [address] [employer] Other XR hand LT min 3V* XRay Report [facility] Other XR hand LT min 3V* Signed [facility] Other XR hand LT min 3V* Patient: Vianey Chen MR#: [id number] [facility] Other XR hand LT min 3V* 0 [facility] Other XR hand LT min 3V* : 1995 Acct:[id number] [facility] Other XR hand LT min 3V* Age/Sex: 26 / F ADM Date: 08/17/21 [facility] Other XR hand LT min 3V* Loc: XDUCLY Room: Type: REG CLI [facility] Other XR hand LT min 3V* Attending Dr: Julieth HERNANDEZ [facility] Other XR hand LT min 3V* Copies to: DAVID Salmeron [facility] Other XR hand LT min 3V* Ordering Provider: DAVID Salmeron [employer] Other XR hand LT min 3V* Date of Service: 08/17/21 [facility] Other XR hand LT min 3V* XR/XR hand LT min 3V*: Pain of left thumb [facility] Other XR hand LT min 3V* LEFT HAND - 4 views [facility] Other XR hand LT min 3V* CLINICAL DATA: Patient injured left hand yesterday and has bruising, pain and swelling over the [employer] Other XR hand LT min 3V* metacarpal phalangea l joint of the thumb and at the distal first metacarpal [facility] Other XR hand LT min 3V* COMPARISON: None [facility] Other XR hand LT min 3V* AP, lateral and oblique views were obtained along with a supplemental lateral view at the thumb. [facility] Other XR hand LT min 3V* There is no evidence of fracture or dislocation. There are no significant soft tissue [facility] Other XR hand LT min 3V* abnormalities. No rt [employer] Other XR hand LT min 3V* XR/XR hand LT min 3V* [facility] Other XR hand LT min 3V* IMPRESSION: [facility] Other XR hand LT min 3V* NO ACUTE BONY INJURY. [facility] Other XR hand LT min 3V* Impression dictated by: Ailin Borrego M.D.08/17/2021 2:53 PM [facility] Other XR hand LT min 3V* Dictation Location: [place] [address] [facility] Other XR hand LT min 3V* Transcribed By: GONZALO 08/17/21 1453 [facility] Other XR hand LT min 3V* Dictated By: Ailin Borrego MD 08/17/21 1451 [facility] [employer] Other XR hand LT min 3V* Signed By: [facility] [employer] Other XR hand LT min 3V* 08/17/21 1453 [facility] [employer] Other PREG HCG QUALon 06-04-2021 , QUAL Negative Normal NEGATIVE [facility] Comment on above: Performed By: #### P REG #### [facility] [address] [place], [place] [address] Dr. Cesar Young [facility] SARS-CoV-2 (COVID-19) RNA ANNABELLE+probe Ql (Unsp spec) Not detected Normal NOT DETECTED [facility] Comment on above: Result Comment: This test is not yet approved or cleared by the [place] FDA. When there are no FDA-approved or cleared tests available, and other criteria are met, FDA can make tests available under an emergency access mechanism called an Emergency Use Authorization (EUA). The EUA for this test is supported by the [place] of Health and Human Service's (HHS's) declaration [...] consistent with SARS-CoV-2. Performed By: #### C VDTBH #### [facility] [address] [place], [place] [address] Dr. Cesar Young [id number] 03-28-2021 SARS-CoV-2 (COVID-19) RNA ANNABELLE+probe Ql (Unsp spec) Normal [facility] Comment on above: Performed By: #### C OVID #### [facility] [address] [place] [address] [id number] Basketball Coach: Vijay Tinsley MD SARS-CoV-2 (COVID-19) RNA ANNABELLE+probe Ql (Unsp spec) Detected Abnormal NOTDET [facility] Comment on above: Result Comment: The specimen is POSITIVE for SARS-Cov-2, the novel coronavirus associated with COVID-19. Millie SARS-CoV-2 for use on the [employer]8800 [employer] is a real-time RT-PCR test intended [...] this assay. Fact sheet for Healthcare Providers: https://www.fda.gov/media/343758/download Fact sheet for Patients: https://www.fda.gov/media/323224/download METHODOLOGY: RT-PCR Results reported to the appropriate Health Department Performed By: #### C OVID #### [facility] [employer] [address] [place] [address] [id number] Basketball Coach: MD RADHA Hinkle-CoV-2on 03-27-2021 SARS-CoV-2 (COVID-19) RNA ANNABELLE+probe Ql (Unsp spec) NOT REPORTED Normal [facility] Comment on above: Performed By: #### C OVID #### [facility] [employer] [address] [place] [address] [id number] Basketball Coach: Vijay Tinsley MD CBC Auto Differentialon 04-01 Basophils (Bld) [#/Vol] 0.10 10*3/uL [facility] [employer] Work Phone: Basophils/100 WBC (Bld) 1 % 0 - 2 % [facility] Phone: Differential Type NOT REPORTED [facility] Phone: Eosinophils (Bld) [#/Vol] 0.20 10*3/uL [employer] Phone: Eosinophils/100 WBC (Bld) 2 % 0 - 4 % [facility] Phone: Erythrocyte distribution width (RBC) [Ratio] 13.9 % 11.5 - 14.9 % [employer] Phone: Hematocrit (Bld) [Volume fraction] 43.1 % 36 - 46 % [facility] Phone: Hemoglobin (Bld) [Mass/Vol] 14.2 g/dL 12 - 16 g/dL [employer] Phone: Lymphocytes (Bld) [#/Vol] 2.10 10*3/uL [facility] Phone: Lymphocytes/100 WBC (Bld) 25 % 24 - 44 % [facility] Phone: MCH (RBC) [Entitic mass] 28.7 pg 26 - 34 pg [facility] Phone: MCHC (RBC) [Mass/Vol] 33.0 g/dL 31 - 37 g/dL [facility] Phone: MCV (RBC) [Entitic vol] 87.2 fL 80 - 100 fL [facility] Phone: Monocytes (Bld) [#/Vol] 0.60 10*3/uL [employer] Phone: Monocytes/100 WBC (Bld) 7 % 1 - 7 % [employer] Phone: Platelet mean volume (Bld) [Entitic vol] 7.7 fL 6 - 12 fL [facility] Phone: Platelets (Bld) [#/Vol] 359 10*3/uL [facility] Phone: Platelets (Bld) [#/Vol] NOT REPORTED [facility] [employer] Work Phone: RBC (Bld) [#/Vol] 4.94 10*6/uL 4 - 5.2 m/uL [facility] Work Phone: RBC morphology finding Nom (Bld) NOT REPORTED [facility] [employer] Work Phone: Segmented neutrophils/100 WBC (Bld) 65 % 36 - 66 % [facility] [employer] Work Phone: Segs Absolute 5.40 [facility] Work Phone: WBC (Bld) [#/Vol] NOT REPORTED per 100 WBC [facility] [employer] Work Phone: WBC (Bld) [#/Vol] 8.4 10*3/uL [facility] [employer] Work Phone: WBC Morphology NOT REPORTED [facility] [employer] [facility] Work Phone: Comprehensive Metabolic Pane dawit 04-24-2020 Albumin [Mass/Vol] 3.9 g/dL 3.5 - 5.2 g/dL [facility] [employer] Work Phone: Albumin/Globulin [Mass ratio] NOT REPORTED [facility] [employer] Work Phone: ALP [Catalytic activity/Vol] 59 U/L 35 - 104 U/L [facility] [employer] Work Phone: ALT [Catalytic activity/Vol] 19 U/L 5 - 33 U/L [facility] [employer] Work Phone: Anion gap [Moles/Vol] 10 mmol/L 9 - 17 mmol/L [facility] [employer] Work Phone: AST [Catalytic activity/Vol] 15 U/L <32 [facility] [employer] Work Phone: Bilirubin Ql (U) <0.15 Low 0.3 - 1.2 mg/dL [facility] [employer] Work Phone: Bun/Cre Ratio NOT REPORTED [facility] Work Phone: Calcium [Mass/Vol] 9.2 mg/dL 8.6 - 10. 4 mg/dL [facility] [employer] Phone: Chloride [Moles/Vol] 104 mmol/L 98 - 107 mmol/L [facility] [employer] Phone: CO2 [Moles/Vol] 25 mmol/L 20 - 31 mmol/L [facility] [employer] Phone: Creatinine [Mass/Vol] 0.68 mg/dL 0.5 - 0.9 mg/dL [facility] [employer] Phone: GFR >60 >60 mL/min [facility] [employer] Phone: GFR Non- >60 >60 mL/min [facility] [employer] Phone: GFR/1.73 sq M predicted among non-blacks MDRD (S/P/Bld) [Vol rate/Area] [facility] [employer] Phone: Comment on above: Average GFR for 20-2 9 years old: 116 mL/min/1.73sq m Chronic Kidney Disease: <60 mL/min/1.73sq m Kidney failure: <15 mL/min/1.73sq m eGFR calculated using average adult body mass. Additional eGFR calculator available at: http://www.[employer]/multiple_crcl_2012.htm GFR/1.73 sq M predicted among non-blacks MDRD (S/P/Bld) [Vol rate/Area] NOT REPORTED [facility] [employer] Work Phone: Glucose [Mass/Vol] 135 mg/dL High 70 - 99 mg/dL [facility] [employer] Work Phone: Interpretation and review of laboratory results Abnormal [facility] [employer] Work Phone: Potassium [Moles/Vol] 3.7 mmol/L 3.7 - 5.3 mmol/L [facility] [employer] Phone: Protein [Mass/Vol] 7.1 g/dL 6.4 - 8.3 g/dL [employer] Phone: Sodium [Moles/Vol] 139 mmol/L 135 - 144 mmol/L [facility] Phone: Urea nitrogen [Mass/Vol] 11 mg/dL 6 - 20 mg/dL [employer] Phone: Otheron 04-24-2020 Immature granulocytes (Bld) [#/Vol] NOT REPORTED 0 % [employer] Phone: US GALLBLADDER RUQon 021 Unremarkable right upper quadrant ultrasound. [facility] Phone: EXAMINATION: RIGHT UPPER QUADRANT ULTRASOUND 04/24/2020 [...] No evidence of right upper quadrant ascites. [employer] Phone: Erick, pn Incoming Radiant Results From [employer] - 04/24/2020 8:18 AM EST EXAMINATION: RIGHT [...] ascites. IMPRESSION: Unremarkable right upper quadrant ultrasound. [facility] Phone: Vital Signs Date Time Vital Sign Value Performing Clinician Facility 04-14-2023 10:54-0500 Body mass index (BMI) [Ratio] 44.14 kg/m2 Kathy Vicky DO Work Phone: [facility] 04-14-2023 10:54-0500 Body weight 102.51 kg Kathy Vicky DO Work Phone: [facility] 04-14-2023 10:54-0500 Diastolic blood pressure 70 mm[Hg] Kathy Vicky DO Work Phone: [facility] 04-14-2023 10:54-0500 Systolic blood pressure 120 mm[Hg] Kathy Vicky DO Work Phone: [facility] 04-12-2022 10:30-0500 Body height 152.4 cm Julieth Winkler Other [facility] Other 04-12-2022 10:30-0500 Body mass index (BMI) [Ratio] 41.59 kg/m2 Julieth Cathi Other [facility] Other 04-12-2022 10:30-0500 Body temperature 98.5 [degF] Julieth Cathi Other [facility] Other 04-12-2022 10:30-0500 Body weight 96.62 kg Julieth Cathi Other [facility] Other 04-12-2022 10:30-0500 Diastolic blood pressure 87 mm[Hg] Julieth Wnikler Other [facility] Other 04-12-2022 10:30-0500 Respiratory rate 18 /min Julieth Winkler Other [facility] Other 04-12-2022 10:30-0500 SaO2% (BldA) [Mass fraction] 98 % Julieth Winkler Other [facility] Other 04-12-2022 10:30-0500 Systolic blood pressure 141 mm[Hg] Julieth Winkler Other [facility] Other 11-30-2021 17:00-0400 Body height 152.4 cm Jammie Phelpsault Other [facility] Other 11-30-2021 17:00-0400 Body mass index (BMI) [Ratio] 39.06 kg/m2 Jammie Phelpsault Other [facility] Other 11-30-2021 17:00-0400 Body temperature 97.6 [degF] Jammie Mara Other [employer] Other 11-30-2021 17:00-0400 Body weight 90.72 kg Jammie Phelpsault Other [employer] Other 11-30-2021 17:00-0400 Diastolic blood pressure 84 mm[Hg] Jammie Mara Other [employer] Other 11-30-2021 17:00-0400 Respiratory rate 18 /min Jammie Mara Other [employer] Other 11-30-2021 17:00-0400 SaO2% (BldA) [Mass fraction] 99 % Jammie Mara Other [employer] Other 11-30-2021 17:00-0400 Systolic blood pressure 132 mm[Hg] Jammie Mara Other [employer] Other 11-11-2021 10:30-0400 Body height 152.4 cm Julieth Cathi Other [employer] Other 11-11-2021 10:30-0400 Body mass index (BMI) [Ratio] 37.1 kg/m2 Julieth Cathi Other [employer] Other 11-11-2021 10:30-0400 Body temperature 98.1 [degF] Julieth Cathi Other [employer] Other 11-11-2021 10:30-0400 Body weight 86.18 kg Julieth Cathi Other [employer] Other 11-11-2021 10:30-0400 Respiratory rate 18 /min Julieth Cathi Other [employer] Other 11-11-2021 10:30-0400 SaO2% (BldA) [Mass fraction] 99 % Julieth Cathi Other [facility] Other 08-17-2021 14:55-0400 Body height 152.4 cm Julieth Cathi Other [facility] Other 08-17-2021 14:55-0400 Body mass index (BMI) [Ratio] 39.84 kg/m2 Julieth Cathi Other [employer] Other 08-17-2021 14:55-0400 Body temperature 97.8 [degF] Julieth Cathi Other [employer] Other 08-17-2021 14:55-0400 Body weight 92.53 kg Julieth Cathi Other [employer] Other 08-17-2021 14:55-0400 Diastolic blood pressure 74 mm[Hg] Julieth Winkler Other [employer] Other 08-17-2021 14:55-0400 Respiratory rate 18 /min Julieth Agarwalmond Other [employer] Other 08-17-2021 14:55-0400 SaO2% (BldA) [Mass fraction] 99 % Julieth Winkler Other [employer] Other 08-17-2021 14:55-0400 Systolic blood pressure 134 mm[Hg] Julieth Agarwalmond Other [employer] Other Encounters Encounter Date Encounter Type Care Provider Facility Start: 08-10-2023 End: 08-10-2023 ambulatory [facility] Start: 08-04-2023 End: 08-04-2023 ambulatory KATHY VICKY Not Available Start: 07-19-2023 End: 07-19-2023 ambulatory KATHY VICKY Not Available Start: 07-11-2023 End: 07-11-2023 ambulatory [facility] Start: 07-07-2023 End: 07-07-2023 ambulatory KATHY VICKY Not Available Start: 06-14-2023 End: 06-14-2023 ambulatory KATHY VICKY Not Available Start: 05-12-2023 End: 05-12-2023 ambulatory AUBREY GER Not Available Start: 04-14-2023 End: 04-14-2023 Patient encounter procedure Kathy Vicky DO Work Phone: [facility] Start: 04-14-2023 End: 04-14-2023 Periodic preventive med est patient 18-39 yrs Kathy Vciky DO Work Phone: [facility] OB Comment on above: Well woman exam with routine gynecological exam; Exposure to STD; Encounter for anatomic survey; Need for maternal serum alpha-protein (MSAFP) screening; Second trimester Start: 04-14-2023 End: 04-14-2023 ambulatory KATHY PERRY Not Available Start: 03-17-2023 End: 03-17-2023 ambulatory KATHY PERRY Not Available Start: 02-17-2023 End: 02-17-2023 ambulatory KATHY PERRY Not Available Start: 04-12-2022 End: 04-12-2022 ambulatory Julieth Winkler Other [facility] Other Start: 04-12-2022 Office outpatient vi sit 15 minutes Julieth Cathi [facility] Start: 02-12-2022 End: 02-15-2022 ambulatory ELICIA [facility] Start: 02-12-2022 End: 02-14-2022 Subsequent hospital visit by physician [facility] Special Procedures Comment on above: Tear of left acetabu lar labrum, initial encounter Start: 11-30-2021 End: 11-30-2021 ambulatory Jammie Terry Other [employer] Other Start: 11-30-2021 Office outpatient vi sit 15 minutes Jammie Terry [facility] Start: 11-11-2021 End: 11-11-2021 ambulatory Julieth Winkler Other [employer] Other Start: 11-11-2021 Office outpatient vi sit 15 minutes Julieth Cathi [facility] Start: 08-17-2021 End: 08-17-2021 ambulatory Julieth Winkler Other [employer] Other Start: 08-17-2021 Office outpatient vi sit 15 minutes Julieth Cathi [facility] Start: 08-12-2021 End: 08-12-[address] KATHY PERRY Facility: Start: 06-04-2021 Encounter for preprocedural laboratory examination [facility] Start: 06-04-2021 End: 06-04-2021 ambulatory [facility] Facility:H1 Start: 06-02-2021 End: 06-03-2021 ambulatory [facility] Facility:H1 Start: 06-02-2021 End: 06-03-2021 Encounter for preprocedural laboratory examination [facility] Facility: Start: 07-01-2020 End: 07-01-2020 Patient encounter procedure PHYSICIAN NO FAMILY -Ultrasound [place] Start: 06-27-2020 End: 06-27-2020 Patient encounter procedure PHYSICIAN NO [facility]ILY [facility] Start: 04-24-2020 End: 04-24-2020 Subsequent hospital visit by physician Mirna FERNÁNDEZ Laboratory Comment on above: RUQ pain Start: 04-24-2020 End: 04-26-2020 Subsequent hospital visit by physician [facility] Ultrasound Comment on above: RUQ pain Start: 05-26-2015 End: 11-24-2017 Patient encounter status [facility] [address] [facility] [facility] Procedures Date Procedure Procedure Detail Performing Clinician [...] (MSAFP) screening Expected: 04/14/2023 (Approximate), Expires: 05/13/2023 [facility] Comment on above: Expected: 04/14/2023 (Approximate), Expires: 05/13/2023 Start: 04-14-2023 End: 04-14-2024 US for US OB ANATOMY SINGLE W US OB CERVICAL LENGTH Imaging Routine Encounter for anatomic survey Expected: 04/14/2023 (Approximate), Expires: 04/14/2024 [facility] Comment on above: Expected: 04/14/2023 (Approximate), Expires: 04/14/2024 Start: 03-27-2022 Depression Monitoring [facility] Start: 09-28-2021 Influenza vaccination Flu vaccine (# 1) [facility] [employer] Start: 04-22-2021 Influenza vaccination Flu vaccine (# 1) [employer] Phone: Comment on above: Postponed from 10/29 (Patient Refused) Start: 04-22-2021 Pneumococcal 0-64 ye ars Vaccine (1 of 1 - PPSV23) Pneumococcal 0-64 years Vaccine (1 of 1 - PPSV23) [employer] Phone: Comment on above: Postponed from 02/19 (Patient Refused) Start: 04-07-2021 DTaP/Tdap/Td vaccine (7 - Td or Tdap) DTaP/Tdap/Td vaccine (7 - Td or Tdap) [facility] Start: 04-07-2021 DTaP/Tdap/Td vaccine (7 - Td) DTaP/Tdap/Td vaccine (7 - Td) [employer] Phone: Start: 07-01-2020 Duplex scan of lower limb veins US venous duplex [facility] Start: 02-20-2016 Screening for malign ant neoplasm of cervix [facility] [employer] Start: 2013 Hepatitis C screening Hepatitis C sc reen [facility] Start: 2010 HIV screening HIV screen [facility] [employer] Start: 2001 Pneumococcal 0-64 ye ars Vaccine (1 - PCV) Pneumococcal 0-64 years Vaccine (1 - PCV) [employer] [facility] Start: 1995 COVID-19 Vaccine (#1) COVID-19 Vacci ne (#1) [employer] [facility] Start: 1995 Hepatitis C screening Hepatitis C la jyothi [employer] Phone: CHLAMYDIA TRACHOMATI S (GENITO/STI) CHLAMYDIA TRACHOMATIS (GENITO/STI) Lab Routine Exposure to STD Ordered: 04/14/[address] [facility] Comment on above: Ordered: 04/14/2023 Cytology Cervical or vaginal smear or scraping study Pap Smear Pathology and Cytology Routine Well woman exam with routine gynecological exam Ordered: 04/14/2023 [facility] [employer] Work Phone: Comment on above: Ordered: 04/14/2023 End: 02-12-2022 IR INJ ARTHROGRAM HIP LEFT IR INJ ARTHROGRAM HIP LEFT Imaging Routine Tear of left acetabular labrum, initial encounter 1 Occurrences starting 02/12/2022 until 02/12/2022 [employer] Phone: Comment on above: 1 Occurrences starti ng 02/12/2022 until 02/12/2022 Neisseria gonorrhoea e DNA [Presence] in Unspecified specimen by ANNABELLE with probe detection Neisseria gonorrhea DNA probe, direct Lab Routine Exposure to STD Ordered: 04/14/[address] [facility] Comment on above: Ordered: 04/14/2023 SURESWAB(R) ADVANCED VAGINITIS PLUS, TMA SURESWAB(R) ADVANCED VAGINITIS PLUS, TMA Pathology and Cytology Routine Exposure to STD Ordered: 04/14/[address] [facility] Comment on above: Ordered: 04/14/2023 Immunizations Immunization Date Immunization Notes Care Provider Fa lilia 04-07-2011 human papilloma viru s vaccine, quadrivalent [employer] Phone: 04-07-2011 tetanus toxoid, redu julia diphtheria toxoid, and acellular pertussis vaccine, adsorbed [employer] Phone: 02-04-2010 influenza virus vacc ine, unspecified formulation [employer] Phone: 12-23-2009 human papilloma viru s vaccine, quadrivalent [facility] [employer] Phone: 12-23-2009 meningococcal ACWY vaccine, unspecified formulation [facility] [employer] Phone: 04-23-2009 human papilloma viru s vaccine, quadrivalent [facility] [employer] Phone: 10-21-2000 diphtheria, tetanus toxoids and acellular pertussis vaccine [facility] [employer] Phone: 10-21-2000 measles, mumps and r ubella virus vaccine [facility] [employer] Phone: 07-25-1997 diphtheria, tetanus toxoids and acellular pertussis vaccine [facility] [employer] Phone: 07-25-1997 hepatitis B vaccine, adult dosage [facility] [address] [facility] Work Phone: 07-25-1997 hepatitis B vaccine, unspecified formulation [facility] [employer] Phone: 07-25-1997 Hib, unspecified Mirna [facility] Work Phone: 07-19-1997 poliovirus vaccine, unspecified formulation [facility] [employer] Phone: 09-27-1996 diphtheria, tetanus toxoids and acellular pertussis vaccine [facility] [employer] Phone: 09-27-1996 Hib, unspecified [facility] Work Phone: 09-27-1996 measles, mumps and r ubella virus vaccine [facility] [employer] Phone: 09-27-1996 poliovirus vaccine, unspecified formulation [facility] [employer] Phone: 1995 diphtheria, tetanus toxoids and acellular pertussis vaccine [facility] [employer] Phone: 1995 Hib, unspecified [facility] Work Phone: 1995 poliovirus vaccine, unspecified formulation Mirna Bennett [employer] Phone: 1995 diphtheria, tetanus toxoids and acellular pertussis vaccine [employer] Phone: 1995 hepatitis B vaccine, adult dosage [facility] [address] [facility] [employer] Work Phone: 1995 hepatitis B vaccine, unspecified formulation [employer] Phone: 1995 Hib, unspecified Mirna Bennett [employer] [facility] Work Phone: 1995 poliovirus vaccine, unspecified formulation [employer] Phone: 1995 hepatitis B vaccine, adult dosage [address] [employer] Work Phone: 1995 hepatitis B vaccine, unspecified formulation [employer] Phone: Payers Date Payer Category Payer Unknown BCBS BCBS [id number] 2022-Present [phone] [address] [place] [address] [id number] 1995 Unknown [id number] [id number] 1995 Unknown [id number] 2.16.840.1.887995.3.579.2.593 1995 Unknown [id number] 2.16.840.1.846510.3.579.2.593 1995 Unknown [id number] 2.16.840.1.097327.3.579.2.176 1995 Unknown [id number] 2.16.840.1.490205.3.579.2.176 1995 Unknown [id number] 2.16.840.1.182167.3.579.2.1259 1995 Unknown [id number] 2.16.840.1.628630.3.579.2.1259 1995 Unknown [id number] 2.16.840.1.892587.3.579.2.1259 1995 Unknown [id number] 2.16.840.1.414342.3.579.2.1259 1995 Unknown [id number] 2.16.840.1.035421.3.579.2.9 1995 Unknown [id number] 2.16.840.1.592737.3.579.2.1259 1995 Unknown [id number] 2.16.840.1.636212.3.579.2.9 1995 Unknown [id number] 2.16.840.1.651606.3.579.2.1259 1995 Unknown [id number] 2.16.840.1.743049.3.579.2.1286 1995 Unknown [id number] 2.16.840.1.964458.3.579.2.1286 1995 Unknown [id number] 2.16.840.1.580110.3.579.2.6 1995 Unknown [id number] 2.16.840.1.949068.3.579.2.1286 1959 Unknown [id number] [id number] Self-pay Self Pay [id number] Unknown Self Pay [id number] Unknown Self Pay [id number] Social History Date Type Detail Facility Start: 02-28-2007 End: 08-14-2022 Tobacco smoking status NHIS Current every day smoker [facility] [employer] Start: 02-28-2007 History of tobacco use Cigarette Smo ker [employer] Phone: Start: 04-22-2020 End: 08-14-2022 Cigarettes smoked current (pack per day) - Reported [employer] Phone: Start: 04-22-2020 End: 12-16-2021 Tobacco use and exposure Never used [employer] Phone: Start: 04-22-2020 End: 03-17-2023 Alcohol intake Current drinker of alcohol (finding) [employer] Phone: Start: 03-24-2015 Alcohol Comment occasional [employer] Work Phone: Start: 1995 Sex Assigned At Not on file [employer] Work Phone: Start: 1995 Sex Assigned At Female F [facility] Start: 08-14-2022 Sex Assigned At [place] [employer] Other Start: 02-03-2022 History SDOH Physica l Activity DPW 0 [facility] [employer] Phone: Start: 03-27-2021 History SDOH Financial 5 [facility] [employer] Work Phone: Start: 02-03-2022 History SDOH IPV Fear 2 [facility] [employer] Work Phone: Start: 03-27-2021 History SDOH Food Worry 1 [facility] [employer] Work Phone: Start: 01-26-2022 End: 02-05-2022 Exposure to SARS-CoV-2 (event) Not sure [facility] [employer] Start: 08-14-2022 Alcohol Comment 1-2 drinks les s than monthly in the past year [facility] Start: 01-03-[address] [facility] hcare Goals Date Patient Goal Desired Activity /State Clinical Notes 08-17-2021 to 04-14-2023 Lauren Crystal JOHN - 04/14/2023 10:20 AM EST Note Date [...] nursing note reviewed. Exam conducted with a inventory clerk present. Vitals: Estimated body mass index is [...] her MSAFP order do have done at [facility]. Documented by Lauren Crystal MA on behalf of: Kathy Perry DO documented in this encounter [facility] 04-12-2022 Evaluation note Encounter Date Diagnosis Assessment [...] left ear, unspecified type (ICD-10 - H60.502) [employer] Other 12-16-2022 History of Present illness Narrative* Analia Sin RN - 02/12/2022 8:30 AM EST Patient tolerated left hip injections without distress. Dry dressing to site. Patient to MRI for further imaging. documented in this [facility] Phone: [phone] Evaluation note* Encounter Date Diagnosis Assessment Notes Treatment Notes Treatment Clinical Notes Nov, Tattoo reaction (ICD-10 - L92.3) Use medication as directed. complete all doses. Recommend unscented soap to area [facility] Other 09-14-2022 Evaluation note* Encounter Date Diagnosis [...] no improvement in 2 to 3 days. [employer] Other 06-20-2022 Evaluation note* Encounter Date Diagnosis [...] days, Tendonitis home care material was printed [employer] Other Evaluation noteNo Assessments Information Available [facility] Diagnosis Tear of left acetabular labrum, initial encounter documented in this encounter [facility] Phone: evaluation note* Diagnosis Well woman exam with routine gynecological exam Routine gynecological examination Exposure to STD Encounter for anatomic survey Need for maternal serum alpha-protein (MSAFP) screening Second trimester state, incidental [facility] N[facility] - Reported* Type Description Date Surgical History laparoscopy female Surgical History appendectomy Surgical History bronchoscopy [facility] Other History general Narrative - Reported* Type Description Date Medical History Esophageal reflux Surgical History laparoscopy female Surgical History appendectomy Surgical History bronchoscopy [facility] Other Hospital Discharge instructions* Attachments The following attachments cannot be sent through Care Everywhere. * Joint Injections (Faroese) documented in this encounterBON [employer] Work Phone: Assessments Diagnosis RUQ pain Abdominal pain, right upper quadrant Diagnosis RUQ pain Abdominal pain, right upper quadrant Advance Directives No Advanced Directives Records FoundDocuments on File Type Date Recorded Patient Manager Transportation Planning Expl anation ACP-Advance Directive ACP-Power of Sofa Inspector Documents on File Type Date Recorded Patient Manager Transportation Planning Expl anation ACP-Advance Directive ACP-Power of Sofa Inspector Advance Directive Response Recorded Date/ Time Advance Directives No October 09, 2017 12:18pm Reason for Referral Status Reason Specialty Diagnoses / Procedures Referre d By Contact Referred To Contact Closed Radiology Diagnoses RUQ pain Procedures [place] [address] [place] [address] Specialty Diagnoses / Procedures Referred By Contac t Referred To Contact Radiology Diagnoses Tear of left acetabular labrum, initial encounter Procedures IR [place] [address] [place] [address] Referral ID Status Reason Start Date Expiration Date Visits Re quested Visits Authorized [id number] Closed 02/12/2022 02/12/2023 1 1 Specialty Diagnoses / Procedures Referred By Contac t Referred To Contact Radiology Diagnoses Tear of left acetabular labrum, initial encounter S73.192A (ICD-10-CM) - Tear of left acetabular labrum, initial encounter Procedures IR INJ ARTHROGRAM HIP LEFT NV INJECTION HIP ARTHROGRAM 41905 - NV [place]JE[place] [address] [place] [address] Referral ID Status Reason Start Date Expiration Date Visits Re quested Visits Authorized [id number] Closed 02/05/2022 02/05/2023 1 1 Chief Complaint [...] Procedures [place] [address] [place] [place] [address] Specialty Diagnoses / Procedures Referred By Contac t Referred To Contact Radiology Diagnoses Tear of left acetabular labrum, initial encounter S73.192A (ICD-10-CM) - Tear of left acetabular labrum, initial encounter Procedures IR INJ ARTHROGRAM HIP LEFT NV INJECTION HIP ARTHROGRAM [id number] - NV [place]JE[place] [address] [place] [address] Referral ID Status Reason Start Date Expiration Date Visits Re quested Visits Authorized [id number] Closed 02/05/2022 02/05/2023 1 1 Reason Comments Routine Visit INFORMATION SOURCE (unrecogn ized section and content) DATE CREATED AUTHOR 03/29/2021 [facility] DATE CREATED AUTHOR AUTHOR'S ORGANIZ ATION 08/17/2021 [facility] DATE CREATED AUTHOR AUTHOR'S ORGANIZ ATION 08/18/2021 [facility] DATE CREATED AUTHOR AUTHOR'S ORGANIZ ATION 02/18/2022 [facility] DATE CREATED AUTHOR AUTHOR'S ORGANIZ ATION 08/05/[address] [facility] DATE CREATED AUTHOR AUTHOR'S ORGANIZ ATION 08/11/2023 [facility] Care Teams (unrecognized sec tion and content) Home Care Nurse Relationship Specialty [place] [address] [place] [place] [address] PCP - General Family Medicine 03/11/15 FOR [...] BE BASED ON THE PRIMARY CLINICAL RECORDS. [employer] [facility]. provides no warranty or guarantee of the accuracy or completeness of information in this document.
--- NOTE | 2023-08-17 10:10 | US_ITS ---
[address] [address] Patient Name: DARRIUS VERGARA MRN: [id number] date: 1995 Sex: F Assigned Patient Location: [facility] Current Patient Location: [facility] Accession/Order Number: [id number] Exam Date: 08/17/2023 10:18 Report Date: 08/17/2023 11:26 At the request of: KATHY KIMBLE Procedure: US OB BPP w non-stress EXAMINATION: US OB BPP w non-stress HISTORY:CLUB FOOT OF FETUS [id number].[id number] COMPARISON: No relevant comparison available. TECHNIQUE: Ultrasound biophysical profile was performed in the radiology department. BREATHING MOVEMENTS: 2 GROSS BODY MOVEMENTS: 2 TONE: 2 QUALITATIVE AMNIOTIC FLUID VOLUME: 2 PRESENTATION: CEPHALIC HEART RATE: 148.35 bpm AMNIOTIC FLUID VOLUME: 16.03 cm GESTATIONAL AGE: 89 Day US/US OB BPP w non-stress IMPRESSION: Total biophysical profile score: 8 Electronically authenticated by: CR MORENO Date: 08/17/2023 11:26
[2023-08-17 10:43] VITALS: BP 121/78; PULSE 96
== END 2023-08-17 11:20 | disposition home or self-care (01) ==
LOC: US 07:12 → FBC 10:03
PROVIDERS: Visit Provider Obstetrics & Gynecology
DX: O35.HXX0 Maternal care for other (suspected) fetal abnormality and damage, fetal lower extremities anomalies, not applicable or unspecified (principal); Z3A.34 34 weeks gestation of pregnancy
CPT/HCPCS: 76818

== ENCOUNTER 2023-08-22 07:05 | Outpatient (OUT) | payer BC, SELFPAY ==
--- OUTSIDE RECORDS SUMMARY | 2023-08-22 07:20 | XMS_ITS | CCD ---
Author Organization [facility] Care Team Providers Care Exhaust Emissions Inspector Name Role Phone Mirna Bennett Primary Care Provider NO FAMILY, PHYSICIAN Primary Care Provider Unava Jammie Levy Attending Provider Mirna Bennett Primary Care Provider [phone] SAMSA ANA Admitting Unavailable SAMSA, ANA Attending [...] Primary Care Unavailable PERRY BURT Attending Unavailable KATHY PERRY Attending Unavailable KATHY PERRY Attending Unavailable AUBREY CYR Attending Unavailable KATHY PERRY Attending Unavailable KATHY PERRY Attending Unavailable KATHY PERRY Attending Unavailable KATHY PERRY Attending Unavailable KATHY PERRY Attending Unavailable Allergies Allergy Classification Reported Allergen(s) Allergy Type Date of Onset Reaction(s) Facility (2 sources) Amoxicillin-Pot Clavulanate Propensity to adverse reactions to drug 11-17-19 17 Other (See Comments) [facility] Work Phone: (3 sources) Bismuth-Containin g Compounds Propensity to adverse reactions to drug 03-24-19 16 [facility] Work Phone: (1 source) bismuth subsalicylate Drug Allergy 10-10-19 18 [facility] (5 sources) bismuth subsalicylate Drug Allergy 12-03-19 21 hives, Other (See Comments) [facility] (2 sources) bismuth subsalicylate Drug Allergy 12-03-19 21 Hives [facility] Work Phone: (2 sources) Bismuth-Containin g Compounds Drug Intolerance 03-24-19 16 [facility] (1 source) bismuth subcarbonate; Translations: [BISMUTH [...] 3 12/17/2019 Active 21 day ethinyl estradiol 0.746106 mg/hr / etonogestrel 0.005 mg/hr vaginal system (7 sources) Progestin, Estrogen Start: 06-13-2018 NUVARING 0.12-0.015 MG/24HR vaginal ring NuvaRing Active fluocinonide 0.5 mg/ml topical cream (2 sources) Corticosteroid Start: 07-24-2019 fluocinonide (LIDEX) 0.05 % cream Apply topically 2 times daily. 60 g 1 07/24/2019 Active hydrocortisone 10 mg/ml / neomycin 3.5 mg/ml / polymyxin b 34137 unt/ml otic suspension (1 source) Aminoglycoside Antibacterial, Polymyxin-class Antibacterial, Corticosteroid Start: 04-12-2022 Moikvmtm-Bzijybsel-PI 3.5-30581-2 3 drops left ear Three times a [...] Negative - 4(70) +++ mg/dL [facility] Blood, UA Negative Negative - 50 Bill/mcL [facility] Clarity, UA Clear [facility] re Color, UA Yellow [facility] Glucose, UA Negative Negative - 2000(110) ++++ mg/dL [facility] Interpretation and review of laboratory results Abnormal [facility] re Ketones, UA Positive Negative - 160(16) ++++ mg/dL [facility] Comment on above: 40 mg Leukocytes, UA Negative Negative - 500+++ Simon/mcL [facility] Nitrite, UA Negative Negative - Positive [facility] pH, UA 7.0 5 - 9 [facility] e Protein, UA Trace Negative - 2000(20) ++++ mg/dL [facility] Spec Grav, UA 1.025 1 - 1.03 [facility] Urobilinogen, UA 0.2 0.2 - 12 mg/dL [facility] IR INJ ARTHROGRAM HIP LEFTon 02-13-2022 IR INJ ARTHROGRAM HIP LEFT EXAMINATION: FLUOROSCOPIC GUIDED LEFT HIP ARTHROGRAM, 02/12/2022 8:45 am COMPARISON: None. HISTORY: ORDERING SYSTEM PROVIDED HISTORY: Tear of left acetabular labrum, initial encounter TECHNOLOGIST PROVIDED HISTORY: Is the patient ?->No FLUOROSCOPY DOSE AND TYPE OR TIME AND EXPOSURES: 54 seconds; D AP 83 cGy cm2 PROCEDURE: GRAIN UNLOADER: Gaudencio Chávez MD Informed consent was obtained [...] Gaudencio Chávez MD 02/12/22 Final result Normal [facility] IR INJ ARTHROGRAM HIP LEFTon 02-12-2022 Successful fluoroscopic-guided left hip arthrogram. Patient was transferred to MRI for further imaging. [facility] EXAMINATION: FLUOROSCOPIC GUIDED LEFT HIP ARTHROGRAM, 02/12/2022 8:45 am COMPARISON: None. HISTORY: ORDERING SYSTEM PROVIDED HISTORY: Tear of left acetabular labrum, initial encounter TECHNOLOGIST PROVIDED HISTORY: Is the patient ?->No FLUOROSCOPY DOSE AND TYPE OR TIME AND EXPOSURES: 54 seconds; D AP 83 cGy cm2 PROCEDURE: GRAIN UNLOADER: Gaudencio Chávez MD Informed consent was obtained [...] is sent for subsequent MRI. EBL: None [facility] Gaudencio Chávez MD - 02/12/2022 EXAMINATION: FLUOROSCOPIC GUIDED LEFT HIP ARTHROGRAM, 02/12/2022 8:45 am COMPARISON: None. HISTORY: ORDERING SYSTEM PROVIDED HISTORY: Tear of left acetabular labrum, initial encounter TECHNOLOGIST PROVIDED HISTORY: Is the patient ?->No FLUOROSCOPY DOSE AND TYPE OR TIME AND EXPOSURES: 54 seconds; D AP 83 cGy cm2 PROCEDURE: GRAIN UNLOADER: Gaudencio Chávez MD Informed consent was obtained [...] was transferred to MRI for further imaging. [employer] Phone: Radiology Study observation (narrative) [employer] Phone: IR INJ ARTHROGRAM HIP LEFTOr dered By: Gaudencio Chávez on 02-12-2022 [employer] Phone: MRI HIP LEFT W CONTRASTon MRI [...] Anthony Villanueva MD 02/12/22 Final result Normal [facility] SARS-CoV-2 (COVID-19) RNA NA A+probe Ql (Resp)on 11-11-2021 SARS-CoV-2 (COVID-19) RNA ANNABELLE+probe Ql (Unsp spec) Positive Epic! Other PAP ACOG PANEL 2: 21 to 29on 08-17-2021 . . Normal [facility] Comment on above: Performed By: #### [id number] #### [facility] [address] [place] [address] Dr. Cesar Young Age Gdln ACOG Testing - [facility] Comment on above: Performed By: #### [id number] #### [facility] [address] [place] [address] Dr. Cesar Young DIAGNOSIS: Comment [facility] Comment on above: Result Comment: NEGA TIVE FOR INTRAEPITHELIAL LESION OR MALIGNANCY. Performed By: #### [id number] #### [facility] [address] [place] [address] Dr. Cesar Young Methodology: Comment [facility] Comment on above: Result Comment: This liquid based ThinPrep(R) pap test was screened with the use of an image guided system. Performed By: #### [id number] #### [facility] [address] [place] [address] Dr. Cesar Young Note: Comment [facility] Comment on above: Result Comment: The Pap smear is a screening test designed to aid in the detection of premalignant and malignant conditions of the uterine cervix. It is not a diagnostic procedure and should not be used as the sole means of detecting cervical cancer. Both false-positive and false-negative reports do occur. . Performed By: #### [id number] #### [facility] [address] [place] [address] Dr. Cesar Young Performed by: Comment Normal [facility] Comment on above: Result Comment: Linda Taveras, Metallurgical Specialist (ASCP) Performed By: #### [id number] #### [facility] [address] [place] [address] Dr. Cesar Young Reflex Criteria: Comment Normal [facility] Comment on above: Result Comment: The HPV DNA reflex criteria were not met with this specimen result therefore, no HPV testing was performed. . Performed By: #### [id number] #### [facility] [address] [address] [address] Cesar Young Specimen adequacy: Comment Normal [facility] Comment on above: Result Comment: Sati sfactory for evaluation. Endocervical and/or squamous metaplastic cells (endocervical component) are present. Performed By: #### 4 [id number] #### [facility] [address] [place] [address] Dr. Cesar Young XR hand LT min 3V*on 022 XR hand LT min 3V* [facility] [place] [address] [place] [address] XRay Report Signed Patient: Vianey Chen MR#: [id number] 0 : 1995 Acct:[id number] Age/Sex: 26 / F ADM Date: 08/17/21 Loc: [facility] Room: Type: [facility] Attending Dr: Julieth HERNANDEZ Copies to: [...] Ailin Borrego M.D.08/17/2021 2:53 PM Dictation Location: RADIO--13 Transcribed By: PWS 08/17/21 1453 Dictated By: Ailin Borrego MD 08/17/21 1451 Signed By: 08/17/21 1453 Normal [facility] XR hand LT min 3V* [facility] Sien Other XR hand LT min 3V* [facility] Sien Other XR hand LT min 3V* [address] [place] [address] Sien Other XR hand LT min 3V* [place] [address] Epic! Other XR hand LT min 3V* XRay Report Epic! Other XR hand LT min 3V* Signed Epic! Other XR hand LT min 3V* Patient: Vianey Chen MR#: [id number] Epic! Other XR hand LT min 3V* 0 Epic! Other XR hand LT min 3V* : 1995 Acct:[id number] Epic! Other XR hand LT min 3V* Age/Sex: 26 / F ADM Date: 08/17/21 Epic! Other XR hand LT min 3V* Loc: [facility] Room: Type: REG CLI Epic! Other XR hand LT min 3V* Attending Dr: Julieth HERNANDEZ Epic! Other XR hand LT min 3V* Copies to: DAVID Salmeron Epic! Other XR hand LT min 3V* Ordering Provider: DAVID Salmeron Epic! Other XR hand LT min 3V* Date of Service: 08/17/21 Epic! Other XR hand LT min 3V* XR/XR hand LT min 3V*: Pain of left thumb Epic! Other XR hand LT min 3V* LEFT HAND - 4 views Epic! Other XR hand LT min 3V* CLINICAL DATA: Patient injured left hand yesterday and has bruising, pain and swelling over the Epic! Other XR hand LT min 3V* metacarpal phalangea l joint of the thumb and at the distal first metacarpal Epic! Other XR hand LT min 3V* COMPARISON: None Epic! Other XR hand LT min 3V* AP, lateral and oblique views were obtained along with a supplemental lateral view at the thumb. Epic! Other XR hand LT min 3V* There is no evidence of fracture or dislocation. There are no significant soft tissue Epic! Other XR hand LT min 3V* abnormalities. No rt Sien Other XR hand LT min 3V* XR/XR hand LT min 3V* Epic! Other XR hand LT min 3V* IMPRESSION: Epic! Other XR hand LT min 3V* NO ACUTE BONY INJURY. Epic! Other XR hand LT min 3V* Impression dictated by: Ailin Borrego M.D.08/17/2021 2:53 PM Epic! Other XR hand LT min 3V* Dictation Location: [place] [address] Epic! Other XR hand LT min 3V* Transcribed By: GONZALO 08/17/21 1453 Epic! Other XR hand LT min 3V* Dictated By: Ailin Borrego MD 08/17/21 1451 [facility] [employer] Other XR hand LT min 3V* Signed By: [place] Sien Other XR hand LT min 3V* 08/17/[address] [facility] [employer] Other PREG HCG QUALon 06-04-2021 , QUAL Negative Normal NEGATIVE [facility] Comment on above: Performed By: #### P REG #### [facility] [address] [place] [address] [id number] [address] Cesar Young Covid-19 PCR (CVDTBH)on SARS-CoV-2 (COVID-19) RNA ANNABELLE+probe Ql (Unsp spec) Not detected Normal NOT DETECTED [facility] Comment on above: Result Comment: This test is not yet approved or cleared by the [place] FDA. When there are no FDA-approved or cleared tests available, and other criteria are met, FDA can make tests available under an emergency access mechanism called an Emergency Use Authorization (EUA). The EUA for this test is supported by the Manager [place] of Health and Human Service's (HHS's) declaration [...] SARS-CoV-2. Performed By: #### C VDTBH #### [facility] [address] [place], [place] [address] Dr. Cesar Young [id number] 03-28-2021 SARS-CoV-2 (COVID-19) RNA ANNABELLE+probe Ql (Unsp spec) Normal [facility] Comment on above: Performed By: #### C OVID #### [facility] [place], [place] [id number] [employer] Operator: Vijay Tinsley MD SARS-CoV-2 (COVID-19) RNA ANNABELLE+probe Ql (Unsp spec) Detected Abnormal NOTDET [facility] Comment on above: Result Comment: The specimen is POSITIVE for SARS-Cov-2, the novel coronavirus associated with COVID-19. Millie SARS-CoV-2 for use on the [employer] is a real-time RT-PCR test intended [...] this assay. Fact sheet for Healthcare Providers: https://www.fda.gov/media/346011/download Fact sheet for Patients: https://www.fda.gov/media/353105/download METHODOLOGY: RT-PCR Results reported to the appropriate Health Department Performed By: #### C OVID #### [facility] [employer] [address] [place] [address] [id number] [employer] Operator: MD RADHA Hinkle-CoV-2on 03-27-2021 SARS-CoV-2 (COVID-19) RNA ANNABELLE+probe Ql (Unsp spec) NOT REPORTED Normal [facility] Comment on above: Performed By: #### C OVID #### [facility] [employer] [address] [place] [address] [id number] [employer] Operator: Vijay Tinsley MD CBC Auto Differentialon 04-01 Basophils (Bld) [#/Vol] 0.10 10*3/uL [facility] [employer] Work Phone: Basophils/100 WBC (Bld) 1 % 0 - 2 % [employer] Phone: Differential Type NOT REPORTED [employer] Phone: Eosinophils (Bld) [#/Vol] 0.20 10*3/uL [employer] Phone: Eosinophils/100 WBC (Bld) 2 % 0 - 4 % [employer] Phone: Erythrocyte distribution width (RBC) [Ratio] 13.9 % 11.5 - 14.9 % [employer] Phone: Hematocrit (Bld) [Volume fraction] 43.1 % 36 - 46 % [employer] Phone: Hemoglobin (Bld) [Mass/Vol] 14.2 g/dL 12 - 16 g/dL [employer] Phone: Lymphocytes (Bld) [#/Vol] 2.10 10*3/uL [employer] Phone: Lymphocytes/100 WBC (Bld) 25 % 24 - 44 % [employer] Phone: MCH (RBC) [Entitic mass] 28.7 pg 26 - 34 pg [employer] Phone: MCHC (RBC) [Mass/Vol] 33.0 g/dL 31 - 37 g/dL [employer] Phone: MCV (RBC) [Entitic vol] 87.2 fL 80 - 100 fL [employer] Phone: Monocytes (Bld) [#/Vol] 0.60 10*3/uL [employer] Phone: Monocytes/100 WBC (Bld) 7 % 1 - 7 % [employer] Phone: Platelet mean volume (Bld) [Entitic vol] 7.7 fL 6 - 12 fL [employer] Phone: Platelets (Bld) [#/Vol] 359 10*3/uL [facility] [employer] Work Phone: Platelets (Bld) [#/Vol] NOT REPORTED [facility] [employer] Work Phone: RBC (Bld) [#/Vol] 4.94 10*6/uL 4 - 5.2 m/uL [facility] Work Phone: RBC morphology finding Nom (Bld) NOT REPORTED [facility] [employer] Work Phone: Segmented neutrophils/100 WBC (Bld) 65 % 36 - 66 % [facility] [employer] Work Phone: Segs Absolute 5.40 [facility] Work Phone: WBC (Bld) [#/Vol] NOT REPORTED per 100 WBC [facility] [employer] Work Phone: WBC (Bld) [#/Vol] 8.4 10*3/uL [facility] [employer] Work Phone: WBC Morphology NOT REPORTED [facility] Work Phone: Comprehensive Metabolic Pane dawit 04-24-2020 Albumin [Mass/Vol] 3.9 g/dL 3.5 - 5.2 g/dL [facility] [employer] Work Phone: Albumin/Globulin [Mass ratio] NOT REPORTED [facility] [employer] Work Phone: ALP [Catalytic activity/Vol] 59 U/L 35 - 104 U/L [facility] [employer] Work Phone: ALT [Catalytic activity/Vol] 19 U/L 5 - 33 U/L [facility] [employer] Work Phone: Anion gap [Moles/Vol] 10 mmol/L 9 - 17 mmol/L [facility] [employer] Work Phone: AST [Catalytic activity/Vol] 15 U/L <32 [facility] [employer] Work Phone: Bilirubin Ql (U) <0.15 Low 0.3 - 1.2 mg/dL [facility] [employer] Work Phone: Bun/Cre Ratio NOT REPORTED [facility] Work Phone: Calcium [Mass/Vol] 9.2 mg/dL 8.6 - 10. 4 mg/dL [facility] Phone: Chloride [Moles/Vol] 104 mmol/L 98 - 107 mmol/L [facility] [employer] Phone: CO2 [Moles/Vol] 25 mmol/L 20 - 31 mmol/L [facility] Work Phone: Creatinine [Mass/Vol] 0.68 mg/dL 0.5 - 0.9 mg/dL [facility] [employer] Phone: GFR >60 >60 mL/min [facility] Phone: GFR Non- >60 >60 mL/min [facility] Phone: GFR/1.73 sq M predicted among non-blacks MDRD (S/P/Bld) [Vol rate/Area] [facility] [employer] Phone: Comment on above: Average GFR for 20-2 9 years old: 116 mL/min/1.73sq m Chronic Kidney Disease: <60 mL/min/1.73sq m Kidney failure: <15 mL/min/1.73sq m eGFR calculated using average adult body mass. Additional eGFR calculator available at: http://www.ChowNow.Publimind/multiple_crcl_2012.htm GFR/1.73 sq M predicted among non-blacks MDRD (S/P/Bld) [Vol rate/Area] NOT REPORTED [facility] Phone: Glucose [Mass/Vol] 135 mg/dL High 70 - 99 mg/dL [facility] Work Phone: Interpretation and review of laboratory results Abnormal [facility] [employer] Phone: Potassium [Moles/Vol] 3.7 mmol/L 3.7 - 5.3 mmol/L [facility] [employer] Phone: Protein [Mass/Vol] 7.1 g/dL 6.4 - 8.3 g/dL [employer] Phone: Sodium [Moles/Vol] 139 mmol/L 135 - 144 mmol/L [employer] Phone: Urea nitrogen [Mass/Vol] 11 mg/dL 6 - 20 mg/dL [employer] Phone: Otheron 04-24-2020 Immature granulocytes (Bld) [#/Vol] NOT REPORTED 0 % [employer] Phone: US GALLBLADDER RUQon 021 Unremarkable right upper quadrant ultrasound. [employer] Phone: EXAMINATION: RIGHT UPPER QUADRANT ULTRASOUND 04/24/2020 [...] No evidence of right upper quadrant ascites. [employer] Phone: Erick, pn Incoming Radiant Results From [employer] - 04/24/2020 8:18 AM EST EXAMINATION: RIGHT [...] ascites. IMPRESSION: Unremarkable right upper quadrant ultrasound. [employer] Work Phone: Vital Signs Date Time Vital Sign Value Performing Clinician Facility 04-14-2023 10:54-0500 Body mass index (BMI) [Ratio] 44.14 kg/m2 Kathy Vicky DO Work Phone: [facility] 04-14-2023 10:54-0500 Body weight 102.51 kg Kathy Vicky DO Work Phone: [facility] 04-14-2023 10:54-0500 Diastolic blood pressure 70 mm[Hg] Wote Vicky DO Work Phone: [facility] 04-14-2023 10:54-0500 Systolic blood pressure 120 mm[Hg] Kathy Vicky nothingGrinder Work Phone: [facility] 04-12-2022 10:30-0500 Body height 152.4 cm Julieth Winkler Other [employer] Other 04-12-2022 10:30-0500 Body mass index (BMI) [Ratio] 41.59 kg/m2 Julieth Cathi Other [facility]! Other 04-12-2022 10:30-0500 Body temperature 98.5 [degF] Julieth Cathi Other [facility]! Other 04-12-2022 10:30-0500 Body weight 96.62 kg Julieth Cathi Other [facility]! Other 04-12-2022 10:30-0500 Diastolic blood pressure 87 mm[Hg] Julieth Cathi Other [facility]! Other 04-12-2022 10:30-0500 Respiratory rate 18 /min Julieth Winkler Other [employer]! Other 04-12-2022 10:30-0500 SaO2% (BldA) [Mass fraction] 98 % Julieth Winkler Other [facility]! Other 04-12-2022 10:30-0500 Systolic blood pressure 141 mm[Hg] Julieth Winkler Other [employer]! Other 11-30-2021 17:00-0400 Body height 152.4 cm Jammie Phelpsault Other [employer]! Other 11-30-2021 17:00-0400 Body mass index (BMI) [Ratio] 39.06 kg/m2 Jammie Phelpsault Other [employer]! Other 11-30-2021 17:00-0400 Body temperature 97.6 [degF] Jammie Mara Other Epic! Other 11-30-2021 17:00-0400 Body weight 90.72 kg Jammie Phelpsault Other [employer]! Other 11-30-2021 17:00-0400 Diastolic blood pressure 84 mm[Hg] Jammie Mara Other Epic! Other 11-30-2021 17:00-0400 Respiratory rate 18 /min Jammie Phelpsault Other Epic! Other 11-30-2021 17:00-0400 SaO2% (BldA) [Mass fraction] 99 % Jammie Mara Other Epic! Other 11-30-2021 17:00-0400 Systolic blood pressure 132 mm[Hg] Jammie Mara Other Epic! Other 11-11-2021 10:30-0400 Body height 152.4 cm Julieth Cathi Other [employer]! Other 11-11-2021 10:30-0400 Body mass index (BMI) [Ratio] 37.1 kg/m2 Julieth Cathi Other [facility]! Other 11-11-2021 10:30-0400 Body temperature 98.1 [degF] Julieth Cathi Other [facility]! Other 11-11-2021 10:30-0400 Body weight 86.18 kg Julieth Cathi Other [facility]! Other 11-11-2021 10:30-0400 Respiratory rate 18 /min Julieth Cathi Other [facility]! Other 11-11-2021 10:30-0400 SaO2% (BldA) [Mass fraction] 99 % Julieth Cathi Other [facility]! Other 08-17-2021 14:55-0400 Body height 152.4 cm Julieth Cathi Other [facility]! Other 08-17-2021 14:55-0400 Body mass index (BMI) [Ratio] 39.84 kg/m2 Julieth Cathi Other [facility]! Other 08-17-2021 14:55-0400 Body temperature 97.8 [degF] Julieth Cathi Other [employer]! Other 08-17-2021 14:55-0400 Body weight 92.53 kg Julieth Cathi Other [facility]! Other 08-17-2021 14:55-0400 Diastolic blood pressure 74 mm[Hg] Julieth Winkler Other [facility]! Other 08-17-2021 14:55-0400 Respiratory rate 18 /min Julieth Agarwalmond Other Epic! Other 08-17-2021 14:55-0400 SaO2% (BldA) [Mass fraction] 99 % Julieth Winkler Other [facility]! Other 08-17-2021 14:55-0400 Systolic blood pressure 134 mm[Hg] Julieth Winkler Other Epic! Other Encounters Encounter Date Encounter Type Care Provider Facility Start: 08-17-2023 End: 08-17-2023 ambulatory KATHY VICKY Not Available Start: 08-10-2023 End: 08-10-2023 ambulatory [facility] Start: 08-04-2023 End: 08-04-2023 ambulatory KATHY VICKY Not Available Start: 07-19-2023 End: 07-19-2023 ambulatory KATHY VICKY Not Available Start: 07-11-2023 End: 07-11-2023 ambulatory [facility] Start: 07-07-2023 End: 07-07-2023 ambulatory KATHY VICKY Not Available Start: 06-14-2023 End: 06-14-2023 ambulatory KATHY VICKY Not Available Start: 05-12-2023 End: 05-12-2023 ambulatory AUBREY CYR Not Available Start: 04-14-2023 End: 04-14-2023 Patient encounter procedure Kathy Vicky DO Work Phone: [facility] Start: 04-14-2023 End: 04-14-2023 Periodic preventive med est patient 18-39 yrs Kathy Vicky DO Work Phone: [facility] Comment on above: Well woman exam with routine gynecological exam; Exposure to STD; Encounter for anatomic survey; Need for maternal serum alpha-protein (MSAFP) screening; Second trimester Start: 04-14-2023 End: 04-14-2023 ambulatory KATHY VICKY Not Available Start: 03-17-2023 End: 03-17-2023 ambulatory KATHY VICKY Not Available Start: 02-17-2023 End: 02-17-2023 ambulatory KATHY VICKY Not Available Start: 04-12-2022 End: 04-12-2022 ambulatory Julieth Cathi Other Epic! Other Start: 04-12-2022 Office outpatient vi sit 15 minutes Julieth Cathi [facility] Start: 02-12-2022 End: 02-15-2022 ambulatory [facility] Start: 02-12-2022 End: 02-14-2022 Subsequent hospital visit by physician [facility] Ir Nurse 1 [facility] Special Procedures Comment on above: Tear of left acetabu lar labrum, initial encounter Start: 11-30-2021 End: 11-30-2021 ambulatory Jammie Terry Other [facility]! Other Start: 11-30-2021 Office outpatient vi sit 15 minutes Jammie Terry [facility] Start: 11-11-2021 End: 11-11-2021 ambulatory Julieth Cathi Other [facility]! Other Start: 11-11-2021 Office outpatient vi sit 15 minutes Julieth Cathi [facility] Start: 08-17-2021 End: 08-17-2021 ambulatory Julieth Cathi Other [facility]! Other Start: 08-17-2021 Office outpatient vi sit 15 minutes Julieth Cathi [facility] Start: 08-12-2021 End: 08-12-[address] KATHY PERRY Facility:[facility] Start: 06-04-2021 Encounter for preprocedural laboratory examination ANA SOMERS [facility] Start: 06-04-2021 End: 06-04-2021 ambulatory ANA SOMERS Facility:[facility] Start: 06-02-2021 End: 06-03-2021 ambulatory [facility] Facility:[facility] Start: 06-02-2021 End: 06-03-2021 Encounter for preprocedural laboratory examination ANA SOMERS Facility:[facility] Start: 07-01-2020 End: 07-01-2020 Patient encounter procedure PHYSICIAN NO FAMILY -[facility] [place] Start: 06-27-2020 End: 06-27-2020 Patient encounter procedure PHYSICIAN [facility] Start: 04-24-2020 End: 04-24-2020 Subsequent hospital visit by physician Mirna FERNÁNDEZ Laboratory Comment on above: RUQ pain Start: 04-24-2020 End: 04-26-2020 Subsequent hospital visit by physician Reinier Ultrasound Rm 105 [facility] Ultrasound Comment on above: RUQ pain Start: 05-26-2015 End: 11-24-2017 Patient encounter status [facility] 104 [facility] Procedures Date Procedure Procedure Detail Performing [...] (MSAFP) screening Expected: 04/14/2023 (Approximate), Expires: 05/13/2023 [facility] Comment on above: Expected: 04/14/2023 (Approximate), Expires: 05/13/2023 Start: 04-14-2023 End: 04-14-2024 US for US OB ANATOMY SINGLE W US OB CERVICAL LENGTH Imaging Routine Encounter for anatomic survey Expected: 04/14/2023 (Approximate), Expires: 04/14/2024 [facility] Comment on above: Expected: 04/14/2023 (Approximate), Expires: 04/14/2024 Start: 03-27-2022 Depression Monitoring Depression Mon itoring [employer] Start: 09-28-2021 Influenza vaccination Flu vaccine (# 1) [employer] Start: 04-22-2021 Influenza vaccination Flu vaccine (# 1) [employer] Phone: Comment on above: Postponed from 10/29 (Patient Refused) Start: 04-22-2021 Pneumococcal 0-64 ye ars Vaccine (1 of 1 - PPSV23) Pneumococcal 0-64 years Vaccine (1 of 1 - PPSV23) [employer] Phone: Comment on above: Postponed from 02/19 (Patient Refused) Start: 04-07-2021 DTaP/Tdap/Td vaccine (7 - Td or Tdap) DTaP/Tdap/Td vaccine (7 - Td or Tdap) [employer] Start: 04-07-2021 DTaP/Tdap/Td vaccine (7 - Td) DTaP/Tdap/Td vaccine (7 - Td) [employer] Phone: Start: 07-01-2020 Duplex scan of lower limb veins US venous duplex [facility] Start: 02-20-2016 Screening for malign ant neoplasm of cervix [facility] [employer] Start: 2013 Hepatitis C screening Hepatitis C sc reen [facility] [employer] Start: 2010 HIV screening [facility] Start: 2001 Pneumococcal 0-64 ye ars Vaccine (1 - PCV) Pneumococcal 0-64 years Vaccine (1 - PCV) [facility] [employer] Start: 1995 COVID-19 Vaccine (#1) COVID-19 Vacci ne (#1) [facility] Start: 1995 Hepatitis C screening Hepatitis C sc jyothi [employer] Phone: CHLAMYDIA TRACHOMATI S (GENITO/STI) CHLAMYDIA TRACHOMATIS (GENITO/STI) Lab Routine Exposure to STD Ordered: 04/14/2023 [facility] Comment on above: Ordered: 04/14/2023 Cytology Cervical or vaginal smear or scraping study Pap Smear Pathology and Cytology Routine Well woman exam with routine gynecological exam Ordered: 04/14/2023 [facility] [employer] Work Phone: Comment on above: Ordered: 04/14/2023 End: 02-12-2022 IR INJ ARTHROGRAM HIP LEFT IR INJ ARTHROGRAM HIP LEFT Imaging Routine Tear of left acetabular labrum, initial encounter 1 Occurrences starting 02/12/2022 until 02/12/2022 [facility] [employer] Phone: Comment on above: 1 Occurrences starti ng 02/12/2022 until 02/12/2022 Neisseria gonorrhoea e DNA [Presence] in Unspecified specimen by ANNABELLE with probe detection Neisseria gonorrhea DNA probe, direct Lab Routine Exposure to STD Ordered: 04/14/2023 [facility] Comment on above: Ordered: 04/14/2023 SURESWAB(R) ADVANCED VAGINITIS PLUS, TMA SURESWAB(R) ADVANCED VAGINITIS PLUS, TMA Pathology and Cytology Routine Exposure to STD Ordered: 04/14/2023 [facility] Comment on above: Ordered: 04/14/2023 Immunizations Immunization Date Immunization Notes Care Provider Parker rodrigues 04-07-2011 human papilloma viru s vaccine, quadrivalent Mirna [employer] Phone: 04-07-2011 tetanus toxoid, redu julia diphtheria toxoid, and acellular pertussis vaccine, adsorbed [employer] Phone: 02-04-2010 influenza virus vacc ine, unspecified formulation [facility] [employer] Phone: 12-23-2009 human papilloma viru s vaccine, quadrivalent [facility] [employer] Phone: 12-23-2009 meningococcal ACWY vaccine, unspecified formulation [facility] [employer] Phone: 04-23-2009 human papilloma viru s vaccine, quadrivalent [facility] Work Phone: 10-21-2000 diphtheria, tetanus toxoids and acellular pertussis vaccine [facility] [employer] Phone: 10-21-2000 measles, mumps and r ubella virus vaccine [facility] Phone: 07-25-1997 diphtheria, tetanus toxoids and acellular pertussis vaccine [facility] [employer] Phone: 07-25-1997 hepatitis B vaccine, adult dosage [facility] 104 [facility] Work Phone: 07-25-1997 hepatitis B vaccine, unspecified formulation [facility] Phone: 07-25-1997 Hib, unspecified [facility] Work Phone: 07-19-1997 poliovirus vaccine, unspecified formulation [facility] Phone: 09-27-1996 diphtheria, tetanus toxoids and acellular pertussis vaccine [facility] [employer] Phone: 09-27-1996 Hib, unspecified [facility] Work Phone: 09-27-1996 measles, mumps and r ubella virus vaccine [facility] Phone: 09-27-1996 poliovirus vaccine, unspecified formulation [facility] [employer] Phone: 1995 diphtheria, tetanus toxoids and acellular pertussis vaccine [employer] Phone: 1995 Hib, unspecified Mirna Bennett [facility] Work Phone: 1995 poliovirus vaccine, unspecified formulation [employer] Phone: 1995 diphtheria, tetanus toxoids and acellular pertussis vaccine [employer] Phone: 1995 hepatitis B vaccine, adult dosage [facility] 104 [facility] [employer] Phone: 1995 hepatitis B vaccine, unspecified formulation [employer] Phone: 1995 Hib, unspecified Mirna Bennett [employer] [facility] Work Phone: 1995 poliovirus vaccine, unspecified formulation [employer] Phone: 1995 hepatitis B vaccine, adult dosage [facility] 104 [facility] [employer] Phone: 1995 hepatitis B vaccine, unspecified formulation [employer] Phone: Payers Date Payer Category Payer Unknown BCBS BCBS [id number] 2022-Present [phone] [address] [place] [address] [id number] 1995 Unknown [id number] 2.16.840.1.157399.3.579.2.593 1995 Unknown [id number] 2.16.840.1.626145.3.579.2.593 1995 Unknown [id number] 2.16.840.1.277722.3.579.2.593 1995 Unknown [id number] 2.16.840.1.557619.3.579.2.176 1995 Unknown [id number] 2.16.840.1.676902.3.579.2.176 1995 Unknown [id number] 2.16.840.1.498741.3.579.2.1286 1995 Unknown [id number] 2.16.840.1.060867.3.579.2.1286 1995 Unknown [id number] 2.16.840.1.305519.3.579.2.1286 1995 Unknown [id number] 2.16.840.1.570575.3.579.2.1286 1995 Unknown [id number] 2.16.840.1.721723.3.579.2.1259 1995 Unknown [id number] 2.16.840.1.188603.3.579.2.9 1995 Unknown [id number] 2.16.840.1.002299.3.579.2.1259 1995 Unknown [id number] 2.16.840.1.206774.3.579.2.9 1995 Unknown [id number] 2.16.840.1.111299.3.579.2.9 1995 Unknown [id number] 2.16.840.1.745175.3.579.2.9 1995 Unknown [id number] 2.16.840.1.125611.3.579.2.1259 1995 Unknown [id number] 2.16.840.1.922878.3.579.2.9 1995 Unknown [id number] 2.16.840.1.321777.3.579.2.1259 1959 Unknown [id number] [id number] Self-pay Self Pay [id number] Unknown Self Pay [id number] Unknown Self Pay [id number] Social History Date Type Detail Facility Start: 02-28-2007 End: 08-14-2022 Tobacco smoking status NVIS Current every day smoker [facility] [employer] Start: 02-28-2007 History of tobacco use Cigarette Smo ker [employer] Phone: Start: 04-22-2020 End: 08-14-2022 Cigarettes smoked current (pack per day) - Reported [employer] Phone: Start: 04-22-2020 End: 12-16-2021 Tobacco use and exposure Never used [employer] Phone: Start: 04-22-2020 End: 03-17-2023 Alcohol intake Current drinker of alcohol (finding) [employer] Work Phone: Start: 03-24-2015 Alcohol Comment occasional [employer] Work Phone: Start: 1995 Sex Assigned At Not on file M [employer] Work Phone: Start: 1995 Sex Assigned At Female F [facility] Start: 08-14-2022 Sex Assigned At N [facility] Other Start: 02-03-2022 History SDOH Physica l Activity DPW 0 [facility] [employer] Work Phone: Start: 03-27-2021 History SDOH Financial 5 [facility] [employer] Work Phone: Start: 02-03-2022 History SDOH IPV Fear 2 [facility] [employer] Phone: Start: 03-27-2021 History SDOH Food Worry 1 [employer] Work Phone: Start: 01-26-2022 End: 02-05-2022 Exposure to SARS-CoV-2 (event) Not sure [facility] Start: 08-14-2022 Alcohol Comment 1-2 drinks les s than monthly in the past year [facility] Start: 01-03-2023 [facility] Go[facility] Date Patient Goal Desired Activity /State Clinical Notes 08-17-2021 to 04-14-2023 Lauren CrystalJOHN - 04/14/2023 10:20 AM EST Note Date [...] nursing note reviewed. Exam conducted with a ed special education teacher present. Vitals: Estimated body mass index is [...] her MSAFP order do have done at [facility]. Documented by Lauren Crystal MA on behalf of: Kathy Perry DO documented in this encounter [facility] 04-12-2022 Evaluation note Encounter Date Diagnosis [...] left ear, unspecified type (ICD-10 - H60.502) [employer]! Other 12-16-2022 History of Present illness Narrative* Analia Sin RN - 02/12/2022 8:30 AM EST Patient tolerated left hip injections without distress. Dry dressing to site. Patient to MRI for further imaging. [facility] [employer] Phone: [phone]) [phone] Evaluation note* Encounter Date Diagnosis Assessment Notes Treatment Notes Treatment Clinical Notes Nov, Tattoo reaction (ICD-10 - L92.3) Use medication as directed. complete all doses. Recommend unscented soap to area [employer]! Other 09-14-2022 Evaluation note* Encounter Date Diagnosis [...] no improvement in 2 to 3 days. [employer]! Other 06-20-2022 Evaluation note* Encounter Date Diagnosis [...] days, Tendonitis home care material was printed Epic! Other Evaluation noteNo Assessments Information Available [facility] Diagnosis Tear of left acetabular labrum, initial encounter documented in this encounter [facility] [employer] Phone: evaluation note* Diagnosis Well woman exam with routine gynecological exam Routine gynecological examination Exposure to STD Encounter for anatomic survey Need for maternal serum alpha-protein (MSAFP) screening Second trimester state, incidental documented in [facility] N[facility]ative - Reported* Type Description Date Surgical History laparoscopy female Surgical History appendectomy Surgical History bronchoscopy Epic! Other History general Narrative - Reported* Type Description Date Medical History Esophageal reflux Surgical History laparoscopy female Surgical History appendectomy Surgical History bronchoscopy Epic! Other Hospital Discharge instructions* Attachments The following attachments cannot be sent through Care Everywhere. * Joint Injections (Turkish) documented in this encounterBON [employer] 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 ACP-Advance Directive ACP-Power of Material Flow Analyst Advance Directive Response Recorded Date/ Time Advance Directives No October 09, 2017 12:18pm Reason for Referral Status Reason Specialty Diagnoses / Procedures Referre d By Contact Referred To Contact Closed Radiology Diagnoses RUQ pain Procedures [place] [address] [place] [address] Specialty Diagnoses / Procedures Referred By Contac t Referred To Contact Radiology Diagnoses Tear of left acetabular labrum, initial encounter Procedures IR [place] [address] [place] [address] Referral ID Status Reason Start Date Expiration Date Visits Re quested Visits Authorized [id number] Closed 02/12/2022 02/12/2023 1 1 Specialty Diagnoses / Procedures Referred By Contac t Referred To Contact Radiology Diagnoses Tear of left acetabular labrum, initial encounter S73.192A (ICD-10-CM) - Tear of left acetabular labrum, initial encounter Procedures IR INJ ARTHROGRAM HIP LEFT SC INJECTION HIP ARTHROGRAM 54523 - SC [place] [address] [place] [address] Referral ID Status Reason Start Date Expiration Date Visits Re quested Visits Authorized [id number] Closed 02/05/2022 02/05/2023 1 1 Chief Complaint and Reason for Visit Chief Complaint Tenderness of left c detention Summary Purpose Family History No Family History [...] Procedures [place] [address] [facility] [place] [address] Specialty Diagnoses / Procedures Referred By Anupama martinez Referred To Contact Radiology Diagnoses Tear of left acetabular labrum, initial encounter S73.192A (ICD-10-CM) - Tear of left acetabular labrum, initial encounter Procedures IR INJ ARTHROGRAM HIP LEFT SC INJECTION HIP ARTHROGRAM 50567 - SC [place]JE[place] [address] [place] [address] Referral ID Status Reason Start Date Expiration Date Visits Re quested Visits Authorized [id number] Closed 02/05/2022 02/05/2023 1 1 Reason Comments Routine Visit INFORMATION SOURCE (unrecogn ized section and content) DATE CREATED AUTHOR 03/29/2021 [facility] DATE CREATED AUTHOR AUTHOR'S ORGANIZ ATION 08/17/2021 [facility] DATE CREATED AUTHOR AUTHOR'S ORGANIZ ATION 08/18/2021 [facility] DATE CREATED AUTHOR AUTHOR'S ORGANIZ ATION 02/18/2022 [facility] DATE CREATED AUTHOR AUTHOR'S ORGANIZ ATION 08/11/2023 [facility] DATE CREATED AUTHOR AUTHOR'S ORGANIZ ATION 08/19/2023 [facility] dical Specialists [employer] Care Teams (unrecognized sec tion and content) Exhaust Emissions Inspector Relationship Specialty [place] [address] [facility] [place] [address] PCP - General Family Medicine 03/11/15 FOR [...] BE BASED ON THE PRIMARY CLINICAL RECORDS. [employer] [facility]. provides no warranty or guarantee of the accuracy or completeness of information in this document.
[2023-08-22 18:02] VITALS: BP 129/80; PULSE 74
== END 2023-08-22 18:45 | disposition home or self-care (01) ==
LOC: FBCO 07:19 → FBC 17:54
PROVIDERS: Visit Provider Obstetrics & Gynecology
DX: O35.8XX0 Maternal care for other (suspected) fetal abnormality and damage, not applicable or unspecified (principal)
CPT/HCPCS: 59025

== ENCOUNTER 2023-08-25 07:01 | Outpatient (OUT) | payer BC, SELFPAY ==
--- NOTE | 2023-08-25 | US_ITS ---
[address] [address] Patient Name: DARRIUS VERGARA MRN: [id number] date: 1995 Sex: F Assigned Patient Location: [facility] Current Patient Location: [facility] Accession/Order Number: [id number] Exam Date: 08/25/2023 10:15 Report Date: 08/25/2023 10:54 At the request of: KATHY KIMBLE Procedure: US OB BPP w non-stress EXAMINATION: US OB BPP w non-stress HISTORY: Club foot of fetus [id number] COMPARISON: No relevant comparison available. TECHNIQUE: Ultrasound biophysical profile was performed in the radiology department. non-reactive stress testing was performed by nursing staff in the birthing center. FINDINGS: BREATHING MOVEMENTS: 2 GROSS BODY MOVEMENTS: 2 TONE: 2 QUALITATIVE AMNIOTIC FLUID VOLUME: 2 PRESENTATION: CEPHALIC HEART RATE: 135 bpm AMNIOTIC FLUID VOLUME: 14.7 cm GESTATIONAL AGE: 35 weeks 3 days US/US OB BPP w non-stress IMPRESSION: Total biophysical profile score: 8 Electronically authenticated by: ELDER GONZALEZ Date: 08/25/2023 10:54
--- OUTSIDE RECORDS SUMMARY | 2023-08-25 07:03 | XMS_ITS | CCD ---
Author Organization [facility] Care Team Providers Care Furnace Attendant Name Role Phone Mirna Bennett Primary Care Provider NO FAMILY, PHYSICIAN Primary Care Provider Unava Jammie Levy Attending Provider [phone] Mirna Bennett Primary Care Provider [phone] SAMSA ANA Admitting Unavailable SAMSA, ANA Attending [...] PERRY Attending Unavailable KATHY PERRY Attending Unavailable ABUREY CYR Attending Unavailable KATHY PERRY Attending Unavailable [...] to adverse reactions to drug 03-24-19 16 [facility] Work Phone: (1 source) bismuth subsalicylate Drug Allergy 10-10-19 18 [facility] (5 sources) bismuth subsalicylate Drug Allergy 12-03-19 21 hives, Other (See Comments) [facility] (2 sources) bismuth subsalicylate Drug Allergy 12-03-19 21 Hives [facility] Work Phone: (2 sources) Bismuth-Containin g Compounds Drug Intolerance 03-24-19 16 [facility] (1 source) bismuth subcarbonate; Translations: [BISMUTH [...] 3 12/17/2019 Active 21 day ethinyl estradiol 0.165243 mg/hr / etonogestrel 0.005 mg/hr vaginal system (7 sources) Progestin, Estrogen Start: 06-13-2018 NUVARING 0.12-0.015 MG/24HR vaginal ring NuvaRing Active fluocinonide 0.5 mg/ml topical cream (2 sources) Corticosteroid Start: 07-24-2019 fluocinonide (LIDEX) 0.05 % cream Apply topically 2 times daily. 60 g 1 07/24/2019 Active hydrocortisone 10 mg/ml / neomycin 3.5 mg/ml / polymyxin b 32758 unt/ml otic suspension (1 source) Aminoglycoside Antibacterial, Polymyxin-class Antibacterial, Corticosteroid Start: 04-12-2022 Npgbzztl-Zrufqhoof-PR 3.5-43186-8 3 drops left ear Three times a [...] UA Negative Negative - 4(70) +++ mg/dL [facility] Blood, UA Negative Negative - 50 Bill/mcL [facility] Clarity, UA Clear [facility] re Color, UA Yellow [facility] Glucose, UA Negative Negative - 2000(110) ++++ mg/dL [facility] Interpretation and review of laboratory results Abnormal [facility] re Ketones, UA Positive Negative - 160(16) ++++ mg/dL [facility] Comment on above: 40 mg Leukocytes, UA Negative Negative - 500+++ Simon/mcL [facility] Nitrite, UA Negative Negative - Positive [facility] pH, UA 7.0 5 - 9 [facility] e Protein, UA Trace Negative - 2000(20) ++++ mg/dL [facility] Spec Grav, UA 1.025 1 - 1.03 [facility] Urobilinogen, UA 0.2 0.2 - 12 mg/dL [facility] e IR INJ ARTHROGRAM HIP LEFTon 02-13-2022 IR INJ ARTHROGRAM HIP LEFT EXAMINATION: FLUOROSCOPIC GUIDED LEFT HIP ARTHROGRAM, 02/12/2022 8:45 am COMPARISON: None. HISTORY: ORDERING SYSTEM PROVIDED HISTORY: Tear of left acetabular labrum, initial encounter TECHNOLOGIST PROVIDED HISTORY: Is the patient ?->No FLUOROSCOPY DOSE AND TYPE OR TIME AND EXPOSURES: 54 seconds; D AP 83 cGy cm2 PROCEDURE: SAP TECHNICAL ARCHITECT: Gaudencio Chávez MD Informed consent was obtained [...] Gaudencio Chávez MD 02/12/22 Final result Normal [facility] IR INJ ARTHROGRAM HIP LEFTon 02-12-2022 Successful fluoroscopic-guided left hip arthrogram. Patient was transferred to MRI for further imaging. [facility] EXAMINATION: FLUOROSCOPIC GUIDED LEFT HIP ARTHROGRAM, 02/12/2022 8:45 am COMPARISON: None. HISTORY: ORDERING SYSTEM PROVIDED HISTORY: Tear of left acetabular labrum, initial encounter TECHNOLOGIST PROVIDED HISTORY: Is the patient ?->No FLUOROSCOPY DOSE AND TYPE OR TIME AND EXPOSURES: 54 seconds; D AP 83 cGy cm2 PROCEDURE: SAP TECHNICAL ARCHITECT: Gaudencio Chávez MD Informed consent was obtained [...] is sent for subsequent MRI. EBL: None [facility] Gaudencio Chávez MD - 02/12/2022 EXAMINATION: FLUOROSCOPIC GUIDED LEFT HIP ARTHROGRAM, 02/12/2022 8:45 am COMPARISON: None. HISTORY: ORDERING SYSTEM PROVIDED HISTORY: Tear of left acetabular labrum, initial encounter TECHNOLOGIST PROVIDED HISTORY: Is the patient ?->No FLUOROSCOPY DOSE AND TYPE OR TIME AND EXPOSURES: 54 seconds; D AP 83 cGy cm2 PROCEDURE: SAP TECHNICAL ARCHITECT: Gaudencio Chávez MD Informed consent was obtained [...] was transferred to MRI for further imaging. [employer] Phone: Radiology Study observation (narrative) [employer] Phone: IR INJ ARTHROGRAM HIP LEFTOr dered By: Gaudencio Chávez on 02-12-2022 Linkage Phone: MRI HIP LEFT W CONTRASTon MRI [...] Anthony Villanueva MD 02/12/22 Final result Normal [facility] SARS-CoV-2 (COVID-19) RNA NA A+probe Ql (Resp)on 11-11-2021 SARS-CoV-2 (COVID-19) RNA ANNABELLE+probe Ql (Unsp spec) Positive [employer] Other PAP ACOG PANEL 2: 21 to 29on 08-17-2021 . . Normal [facility] Comment on above: Performed By: #### [id number] #### [facility] [address] [place] [address] Dr. Cesar Young Age Gdln ACOG Testing - [facility] Comment on above: Performed By: #### [id number] #### [facility] [address] [place] [address] Dr. Cesar Young DIAGNOSIS: Comment [facility] Comment on above: Result Comment: NEGA TIVE FOR INTRAEPITHELIAL LESION OR MALIGNANCY. Performed By: #### [id number] #### [facility] [address] [place] [address] Dr. Cesar Young Methodology: Comment [facility] Comment on above: Result Comment: This liquid based ThinPrep(R) pap test was screened with the use of an image guided system. Performed By: #### 4 [id number] #### [facility] [address] [place] [address] Dr. Cesar Young Note: Comment [facility] Comment on above: Result Comment: The Pap smear is a screening test designed to aid in the detection of premalignant and malignant conditions of the uterine cervix. It is not a diagnostic procedure and should not be used as the sole means of detecting cervical cancer. Both false-positive and false-negative reports do occur. . Performed By: #### 4 [id number] #### [facility] [address] [place] [address] Dr. Cesar Young Performed by: Comment Normal [facility] Comment on above: Result Comment: Linda Taveras, Professor Of Art (ASCP) Performed By: #### 4 [id number] #### [facility] [address] [place] [address] Dr. Cesar Young Reflex Criteria: Comment Normal [facility] Comment on above: Result Comment: The HPV DNA reflex criteria were not met with this specimen result therefore, no HPV testing was performed. . Performed By: #### 4 [id number] #### [facility] [address] [address] [address] Cesar Young Specimen adequacy: Comment Normal [facility] Comment on above: Result Comment: Sati sfactory for evaluation. Endocervical and/or squamous metaplastic cells (endocervical component) are present. Performed By: #### 4 [id number] #### [facility] [address] [place] [address] Dr. Cesar Young XR hand LT min 3V*on 022 XR hand LT min 3V* [facility] [place] [address] [place] [address] XRay Report Signed Patient: Vianey Chen MR#: [id number] 0 : 1995 Acct:[id number] Age/Sex: 26 / F ADM Date: 08/17/21 Loc: [facility] Room: Type: [facility] Attending Dr: Julieth HERNANDEZ Copies to: DAVID [...] 08/17/21 1451 Signed By: 08/17/21 1453 Normal [facility] XR hand LT min 3V* [facility] [employer] Other XR hand LT min 3V* [facility] [employer] Other XR hand LT min 3V* [address] [place] [address] [employer] Other XR hand LT min 3V* [place] [address] [employer] Other XR hand LT min 3V* XRay Report [employer] Other XR hand LT min 3V* Signed [employer] Other XR hand LT min 3V* Patient: Vianey Chen MR#: [id number] [employer] Other XR hand LT min 3V* 0 [employer] Other XR hand LT min 3V* : 1995 Acct:[id number] [employer] Other XR hand LT min 3V* Age/Sex: 26 / F ADM Date: 08/17/21 [employer] Other XR hand LT min 3V* Loc: [facility] Room: Type: REG CLI [employer] Other XR hand LT min 3V* Attending Dr: Julieth HERNANDEZ [employer] Other XR hand LT min 3V* Copies to: DAVID Salmeron [employer] Other XR hand LT min 3V* Ordering Provider: DAVID Salmeron [employer] Other XR hand LT min 3V* Date of Service: 08/17/21 [employer] Other XR hand LT min 3V* XR/XR hand LT min 3V*: Pain of left thumb [employer] Other XR hand LT min 3V* LEFT HAND - 4 views [employer] Other XR hand LT min 3V* CLINICAL DATA: Patient injured left hand yesterday and has bruising, pain and swelling over the [employer] Other XR hand LT min 3V* metacarpal phalangea l joint of the thumb and at the distal first metacarpal [employer] Other XR hand LT min 3V* COMPARISON: None [employer] Other XR hand LT min 3V* AP, lateral and oblique views were obtained along with a supplemental lateral view at the thumb. [employer] Other XR hand LT min 3V* There is no evidence of fracture or dislocation. There are no significant soft tissue [employer] Other XR hand LT min 3V* abnormalities. No rt [employer] Other XR hand LT min 3V* XR/XR hand LT min 3V* [employer] Other XR hand LT min 3V* IMPRESSION: [employer] Other XR hand LT min 3V* NO ACUTE BONY INJURY. [employer] Other XR hand LT min 3V* Impression dictated by: Ailin Borrego M.D.08/17/2021 2:53 PM [employer] Other XR hand LT min 3V* Dictation Location: [place] [address] [employer] Other XR hand LT min 3V* Transcribed By: GONZALO 08/17/21 1453 [employer] Other XR hand LT min 3V* Dictated By: Ailin Borrego MD 08/17/21 1451 [facility] [employer] Other XR hand LT min 3V* Signed By: [place] [employer] Other XR hand LT min 3V* 08/17/21 1453 [facility] [employer] Other PREG HCG QUALon 06-04-2021 , QUAL Negative Normal NEGATIVE [facility] Comment on above: Performed By: #### P REG #### [facility] [address] [place] [address] Cesar Young Covid-19 PCR (CVDTBH)on SARS-CoV-2 (COVID-19) RNA ANNABELLE+probe Ql (Unsp spec) Not detected Normal NOT DETECTED [facility] Comment on above: Result Comment: This test is not yet approved or cleared by the [place] FDA. When there are no FDA-approved or cleared tests available, and other criteria are met, FDA can make tests available under an emergency access mechanism called an Emergency Use Authorization (EUA). The EUA for this test is supported by the Freezer Worker of Health and Human Service's (HHS's) declaration [...] SARS-CoV-2. Performed By: #### C VDTBH #### [facility] [address] [place], [place] [address] Dr. Cesar Young [id number] 03-28-2021 SARS-CoV-2 (COVID-19) RNA ANNABELLE+probe Ql (Unsp spec) Normal [facility] Comment on above: Performed By: #### C OVID #### [facility] [place], [place] [id number] Metal Worker: Vijay Tinsley MD SARS-CoV-2 (COVID-19) RNA ANNABELLE+probe Ql (Unsp spec) Detected Abnormal NOTDET [facility] Comment on above: Result Comment: The specimen is POSITIVE for SARS-Cov-2, the novel coronavirus associated with COVID-19. Millie SARS-CoV-2 for use on the [employer]/8800 Systems is a real-time RT-PCR test intended [...] this assay. Fact sheet for Healthcare Providers: https://www.fda.gov/media/959850/download Fact sheet for Patients: https://www.fda.gov/media/750352/download METHODOLOGY: RT-PCR Results reported to the appropriate Health Department Performed By: #### C OVID #### [facility] [address] [place] [address] [id number] Metal Worker: MD RADHA Hinkle-CoV-2on 03-27-2021 SARS-CoV-2 (COVID-19) RNA ANNABELLE+probe Ql (Unsp spec) NOT REPORTED Normal [facility] Comment on above: Performed By: #### C OVID #### [facility] [address] [place] [address] [id number] Metal Worker: Vijay Tinsley MD CBC Auto Differentialon 04-01 Basophils (Bld) [#/Vol] 0.10 10*3/uL [facility] Work Phone: Basophils/100 WBC (Bld) 1 % 0 - 2 % [employer] Phone: Differential Type NOT REPORTED [employer] Phone: Eosinophils (Bld) [#/Vol] 0.20 10*3/uL [employer] Phone: Eosinophils/100 WBC (Bld) 2 % 0 - 4 % [employer] Phone: Erythrocyte distribution width (RBC) [Ratio] 13.9 % 11.5 - 14.9 % [employer] Phone: Hematocrit (Bld) [Volume fraction] 43.1 % 36 - 46 % [employer] Phone: Hemoglobin (Bld) [Mass/Vol] 14.2 g/dL 12 - 16 g/dL [employer] Phone: Lymphocytes (Bld) [#/Vol] 2.10 10*3/uL [employer] Phone: Lymphocytes/100 WBC (Bld) 25 % 24 - 44 % [employer] Phone: MCH (RBC) [Entitic mass] 28.7 pg 26 - 34 pg [employer] Phone: MCHC (RBC) [Mass/Vol] 33.0 g/dL 31 - 37 g/dL [employer] Phone: MCV (RBC) [Entitic vol] 87.2 fL 80 - 100 fL [employer] Phone: Monocytes (Bld) [#/Vol] 0.60 10*3/uL [employer] Phone: Monocytes/100 WBC (Bld) 7 % 1 - 7 % [employer] Phone: Platelet mean volume (Bld) [Entitic vol] 7.7 fL 6 - 12 fL [employer] Phone: Platelets (Bld) [#/Vol] 359 10*3/uL [facility] Work Phone: Platelets (Bld) [#/Vol] NOT REPORTED [facility] Work Phone: RBC (Bld) [#/Vol] 4.94 10*6/uL 4 - 5.2 m/uL [facility] Work Phone: RBC morphology finding Nom (Bld) NOT REPORTED [facility] Work Phone: Segmented neutrophils/100 WBC (Bld) 65 % 36 - 66 % [facility] Work Phone: Segs Absolute 5.40 [facility] Work Phone: WBC (Bld) [#/Vol] NOT REPORTED per 100 WBC [facility] Work Phone: WBC (Bld) [#/Vol] 8.4 10*3/uL [facility] Work Phone: WBC Morphology NOT REPORTED [facility] Work Phone: Comprehensive Metabolic Pane dawit 04-24-2020 Albumin [Mass/Vol] 3.9 g/dL 3.5 - 5.2 g/dL [facility] Work Phone: Albumin/Globulin [Mass ratio] NOT REPORTED [facility] Work Phone: ALP [Catalytic activity/Vol] 59 U/L 35 - 104 U/L [facility] Work Phone: ALT [Catalytic activity/Vol] 19 U/L 5 - 33 U/L [facility] Work Phone: Anion gap [Moles/Vol] 10 mmol/L 9 - 17 mmol/L [facility] Work Phone: AST [Catalytic activity/Vol] 15 U/L <32 [facility] Work Phone: Bilirubin Ql (U) <0.15 Low 0.3 - 1.2 mg/dL [facility] Work Phone: Bun/Cre Ratio NOT REPORTED [facility] Work Phone: Calcium [Mass/Vol] 9.2 mg/dL 8.6 - 10. 4 mg/dL [facility] Phone: Chloride [Moles/Vol] 104 mmol/L 98 - 107 mmol/L [facility] [employer] Phone: CO2 [Moles/Vol] 25 mmol/L 20 - 31 mmol/L [facility] Work Phone: Creatinine [Mass/Vol] 0.68 mg/dL 0.5 - 0.9 mg/dL [facility] [employer] Phone: GFR >60 >60 mL/min [facility] Phone: GFR Non- >60 >60 mL/min [facility] Phone: GFR/1.73 sq M predicted among non-blacks MDRD (S/P/Bld) [Vol rate/Area] [facility] [employer] Phone: Comment on above: Average GFR for 20-2 9 years old: 116 mL/min/1.73sq m Chronic Kidney Disease: <60 mL/min/1.73sq m Kidney failure: <15 mL/min/1.73sq m eGFR calculated using average adult body mass. Additional eGFR calculator available at: http://www.PERORA.zhouwu/multiple_crcl_2012.htm GFR/1.73 sq M predicted among non-blacks MDRD (S/P/Bld) [Vol rate/Area] NOT REPORTED [facility] Phone: Glucose [Mass/Vol] 135 mg/dL High 70 - 99 mg/dL [facility] Work Phone: Interpretation and review of laboratory results Abnormal [facility] [employer] Phone: Potassium [Moles/Vol] 3.7 mmol/L 3.7 - 5.3 mmol/L [facility] [employer] Phone: Protein [Mass/Vol] 7.1 g/dL 6.4 - 8.3 g/dL [employer] Phone: Sodium [Moles/Vol] 139 mmol/L 135 - 144 mmol/L [employer] Phone: Urea nitrogen [Mass/Vol] 11 mg/dL 6 - 20 mg/dL [employer] Phone: Otheron 04-24-2020 Immature granulocytes (Bld) [#/Vol] NOT REPORTED 0 % [employer] Phone: US GALLBLADDER RUQon 021 Unremarkable right upper quadrant ultrasound. [employer] Phone: EXAMINATION: RIGHT UPPER QUADRANT ULTRASOUND 04/24/2020 [...] No evidence of right upper quadrant ascites. [employer] Phone: Erick, pn Incoming Radiant Results From [employer] - 04/24/2020 8:18 AM EST EXAMINATION: RIGHT [...] ascites. IMPRESSION: Unremarkable right upper quadrant ultrasound. [facility] Work Phone: Vital Signs Date Time Vital Sign Value Performing Clinician Facility 04-14-2023 10:54-0500 Body mass index (BMI) [Ratio] 44.14 kg/m2 Kathy Vicky DO Work Phone: [facility] 04-14-2023 10:54-0500 Body weight 102.51 kg Kathy Vicky DO Work Phone: [facility] 04-14-2023 10:54-0500 Diastolic blood pressure 70 mm[Hg] [place] Vicky DO Work Phone: [facility] 04-14-2023 10:54-0500 Systolic blood pressure 120 mm[Hg] Kathy Vicky Looker Work Phone: [facility] 04-12-2022 10:30-0500 Body height 152.4 cm Julieth Winkler Other [employer] Other 04-12-2022 10:30-0500 Body mass index (BMI) [Ratio] 41.59 kg/m2 Julieth Cathi Other [employer] Other 04-12-2022 10:30-0500 Body temperature 98.5 [degF] Julieth Cathi Other [employer] Other 04-12-2022 10:30-0500 Body weight 96.62 kg Julieth Cathi Other [employer] Other 04-12-2022 10:30-0500 Diastolic blood pressure 87 mm[Hg] Julieth Cathi Other [employer] Other 04-12-2022 10:30-0500 Respiratory rate 18 /min Julieth Winkler Other [employer] Other 04-12-2022 10:30-0500 SaO2% (BldA) [Mass fraction] 98 % Julieth Winkler Other [employer] Other 04-12-2022 10:30-0500 Systolic blood pressure 141 mm[Hg] Julieth Winkler Other [employer] Other 11-30-2021 17:00-0400 Body height 152.4 cm Jammie Phelpsault Other [employer] Other 11-30-2021 17:00-0400 Body mass index (BMI) [Ratio] 39.06 kg/m2 Jammie Phelpsault Other [employer] Other 11-30-2021 17:00-0400 Body temperature 97.6 [degF] Jammie Mara Other [employer] Other 11-30-2021 17:00-0400 Body weight 90.72 kg Jammie Phelpsault Other [employer] Other 11-30-2021 17:00-0400 Diastolic blood pressure 84 mm[Hg] Jammie Mara Other [employer] Other 11-30-2021 17:00-0400 Respiratory rate 18 /min Jammie Phelpsault Other [employer] Other 11-30-2021 17:00-0400 SaO2% (BldA) [Mass fraction] 99 % Jammie Mara Other [employer] Other 11-30-2021 17:00-0400 Systolic blood pressure 132 mm[Hg] Jammie Mara Other [employer] Other 11-11-2021 10:30-0400 Body height 152.4 cm Julieth Cathi Other [employer] Other 11-11-2021 10:30-0400 Body mass index (BMI) [Ratio] 37.1 kg/m2 Julieth Cathi Other [employer] Other 11-11-2021 10:30-0400 Body temperature 98.1 [degF] Julieth Cathi Other [employer] Other 11-11-2021 10:30-0400 Body weight 86.18 kg Julieth Cathi Other [employer] Other 11-11-2021 10:30-0400 Respiratory rate 18 /min Julieth Cathi Other [employer] Other 11-11-2021 10:30-0400 SaO2% (BldA) [Mass fraction] 99 % Julieth Cathi Other [employer] Other 08-17-2021 14:55-0400 Body height 152.4 cm Julieth Cathi Other [employer] Other 08-17-2021 14:55-0400 Body mass index (BMI) [Ratio] 39.84 kg/m2 Julieth Cathi Other [employer] Other 08-17-2021 14:55-0400 Body temperature 97.8 [degF] Julieth Cathi Other [employer] Other 08-17-2021 14:55-0400 Body weight 92.53 kg Julieth Cathi Other [employer] Other 08-17-2021 14:55-0400 Diastolic blood pressure 74 mm[Hg] Julieth Winkler Other [employer] Other 08-17-2021 14:55-0400 Respiratory rate 18 /min Julieth Agarwalmond Other [employer] Other 08-17-2021 14:55-0400 SaO2% (BldA) [Mass fraction] 99 % Julieth Winkler Other [employer] Other 08-17-2021 14:55-0400 Systolic blood pressure 134 mm[Hg] Julieth Winkler Other [employer] Other Encounters Encounter Date Encounter Type Care Provider Facility Start: 08-17-2023 End: 08-17-2023 ambulatory KATHY VICKY Not Available Start: 08-10-2023 End: 08-10-2023 ambulatory [facility] Start: 08-04-2023 End: 08-04-2023 ambulatory KATHY VICKY Not Available Start: 07-19-2023 End: 07-19-2023 ambulatory KATHY VICKY Not Available Start: 07-11-2023 End: 07-11-2023 ambulatory [facility] Start: 07-07-2023 End: 07-07-2023 ambulatory KATHY VICKY Not Available Start: 06-14-2023 End: 06-14-2023 ambulatory KATHY VICKY Not Available Start: 05-12-2023 End: 05-12-2023 ambulatory AUBREY YCR Not Available Start: 04-14-2023 End: 04-14-2023 Patient encounter procedure Kathy Vicky DO Work Phone: [facility] Start: 04-14-2023 End: 04-14-2023 Periodic preventive med est patient 18-39 yrs Kathy Vicky DO Work Phone: [facility] OB Comment on above: Well woman exam with routine gynecological exam; Exposure to STD; Encounter for anatomic survey; Need for maternal serum alpha-protein (MSAFP) screening; Second trimester Start: 04-14-2023 End: 04-14-2023 ambulatory KATHY VICKY Not Available Start: 03-17-2023 End: 03-17-2023 ambulatory KATHY VICKY Not Available Start: 02-17-2023 End: 02-17-2023 ambulatory AKTHY VICKY Not Available Start: 04-12-2022 End: 04-12-2022 ambulatory Julieth Cathi Other [employer] Other Start: 04-12-2022 Office outpatient vi sit 15 minutes Julieth Cathi [facility] Start: 02-12-2022 End: 02-15-2022 ambulatory [facility] Start: 02-12-2022 End: 02-14-2022 Subsequent hospital visit by physician [facility] Nurse [facility] Special Procedures Comment on above: Tear of left acetabu lar labrum, initial encounter Start: 11-30-2021 End: 11-30-2021 ambulatory Jammie Terry Other [employer] Other Start: 11-30-2021 Office outpatient vi sit 15 minutes Jammie Terry [facility] Start: 11-11-2021 End: 11-11-2021 ambulatory Julieth Cathi Other [employer] Other Start: 11-11-2021 Office outpatient vi sit 15 minutes Julieth Cathi [facility] Start: 08-17-2021 End: 08-17-2021 ambulatory Julieth Cathi Other [employer] Other Start: 08-17-2021 Office outpatient vi sit 15 minutes Julieth Cathi [facility] Start: 08-12-2021 End: 08-12-[address] KATHY PERRY Facility:[facility] Start: 06-04-2021 Encounter for preprocedural laboratory examination ANA SOMERS [facility] Start: 06-04-2021 End: 06-04-2021 ambulatory ANA SOMERS Facility:[facility] Start: 06-02-2021 End: 06-03-2021 ambulatory ANA [facility] Facility:[facility] Start: 06-02-2021 End: 06-03-2021 Encounter for preprocedural laboratory examination ANA SOMERS Facility:[facility] Start: 07-01-2020 End: 07-01-2020 Patient encounter procedure PHYSICIAN NO FAMILY -Ultrasound [facility] [place] Start: 06-27-2020 End: 06-27-2020 Patient encounter procedure PHYSICIAN [facility] Start: 04-24-2020 End: 04-24-2020 Subsequent hospital visit by physician Mirna FERNÁNDEZ Laboratory Comment on above: RUQ pain Start: 04-24-2020 End: 04-26-2020 Subsequent hospital visit by physician Reniier [facility] Rm [facility] Ultrasound Comment on above: RUQ pain Start: 05-26-2015 End: 11-24-2017 Patient encounter status [facility] Procedures Date Procedure Procedure Detail Performing [...] (MSAFP) screening Expected: 04/14/2023 (Approximate), Expires: 05/13/2023 [facility] Comment on above: Expected: 04/14/2023 (Approximate), Expires: 05/13/2023 Start: 04-14-2023 End: 04-14-2024 US for US OB ANATOMY SINGLE W US OB CERVICAL LENGTH Imaging Routine Encounter for anatomic survey Expected: 04/14/2023 (Approximate), Expires: 04/14/2024 [facility] Comment on above: Expected: 04/14/2023 (Approximate), Expires: 04/14/2024 Start: 03-27-2022 Depression Monitoring Depression Mon itoring [facility] Start: 09-28-2021 Influenza vaccination Flu vaccine (# 1) [facility] Start: 04-22-2021 Influenza vaccination Flu vaccine (# 1) [employer] Phone: Comment on above: Postponed from 10/29 (Patient Refused) Start: 04-22-2021 Pneumococcal 0-64 ye ars Vaccine (1 of 1 - PPSV23) Pneumococcal 0-64 years Vaccine (1 of 1 - PPSV23) [employer] Phone: Comment on above: Postponed from 02/19 (Patient Refused) Start: 04-07-2021 DTaP/Tdap/Td vaccine (7 - Td or Tdap) DTaP/Tdap/Td vaccine (7 - Td or Tdap) Xero Start: 04-07-2021 DTaP/Tdap/Td vaccine (7 - Td) DTaP/Tdap/Td vaccine (7 - Td) [employer] Phone: Start: 07-01-2020 Duplex scan of lower limb veins US venous duplex [facility] Start: 02-20-2016 Screening for malign ant neoplasm of cervix [facility] [employer] Start: 2013 Hepatitis C screening Hepatitis C sc reen [facility] Start: 2010 [facility]: 2001 Pneumococcal 0-64 ye ars Vaccine (1 - PCV) Pneumococcal 0-64 years Vaccine (1 - PCV) [facility] [employer] Start: 1995 COVID-19 Vaccine (#1) COVID-19 Vacci ne (#1) [facility] Start: 1995 Hepatitis C screening Hepatitis C sc jyothi [employer] Phone: CHLAMYDIA TRACHOMATI S (GENITO/STI) CHLAMYDIA TRACHOMATIS (GENITO/STI) Lab Routine Exposure to STD Ordered: 04/14/2023 [facility] Healthcare Comment on above: Ordered: 04/14/2023 Cytology Cervical or vaginal smear or scraping study Pap Smear Pathology and Cytology Routine Well woman exam with routine gynecological exam Ordered: 04/14/2023 [facility] [employer] Work Phone: Comment on above: Ordered: 04/14/2023 End: 02-12-2022 IR INJ ARTHROGRAM HIP LEFT IR INJ ARTHROGRAM HIP LEFT Imaging Routine Tear of left acetabular labrum, initial encounter 1 Occurrences starting 02/12/2022 until 02/12/[address] [facility] [employer] Phone: Comment on above: 1 Occurrences starti ng 02/12/2022 until 02/12/2022 Neisseria gonorrhoea e DNA [Presence] in Unspecified specimen by ANNABELLE with probe detection Neisseria gonorrhea DNA probe, direct Lab Routine Exposure to STD Ordered: 04/14/2023 [facility] Healthcare Comment on above: Ordered: 04/14/2023 SURESWAB(R) ADVANCED VAGINITIS PLUS, TMA SURESWAB(R) ADVANCED VAGINITIS PLUS, TMA Pathology and Cytology Routine Exposure to STD Ordered: 04/14/2023 [facility] Healthcare Comment on above: Ordered: 04/14/2023 Immunizations Immunization Date Immunization Notes Care Provider Parker rodrigues 04-07-2011 human papilloma viru s vaccine, quadrivalent Mir[facility] [employer] Phone: 04-07-2011 tetanus toxoid, redu julia diphtheria toxoid, and acellular pertussis vaccine, adsorbed [employer] Phone: 02-04-2010 influenza virus vacc ine, unspecified formulation [facility] [employer] Phone: 12-23-2009 human papilloma viru s vaccine, quadrivalent [facility] [employer] Phone: 12-23-2009 meningococcal ACWY vaccine, unspecified formulation [facility] [employer] Phone: 04-23-2009 human papilloma viru s vaccine, quadrivalent [facility] Work Phone: 10-21-2000 diphtheria, tetanus toxoids and acellular pertussis vaccine [facility] [employer] Phone: 10-21-2000 measles, mumps and r ubella virus vaccine [facility] Phone: 07-25-1997 diphtheria, tetanus toxoids and acellular pertussis vaccine [facility] [employer] Phone: 07-25-1997 hepatitis B vaccine, adult dosage [facility] Work Phone: 07-25-1997 hepatitis B vaccine, unspecified formulation [facility] Phone: 07-25-1997 Hib, unspecified [facility] Work Phone: 07-19-1997 poliovirus vaccine, unspecified formulation [facility] Phone: 09-27-1996 diphtheria, tetanus toxoids and acellular pertussis vaccine [facility] [employer] Phone: 09-27-1996 Hib, unspecified [facility] Work Phone: 09-27-1996 measles, mumps and r ubella virus vaccine [facility] Phone: 09-27-1996 poliovirus vaccine, unspecified formulation [facility] [employer] Phone: 1995 diphtheria, tetanus toxoids and acellular pertussis vaccine [employer] Phone: 1995 Hib, unspecified Mirna Bennett [employer] [facility] Work Phone: 1995 poliovirus vaccine, unspecified formulation [employer] Phone: 1995 diphtheria, tetanus toxoids and acellular pertussis vaccine [employer] Phone: 1995 hepatitis B vaccine, adult dosage [facility] [address] [facility] [employer] Phone: 1995 hepatitis B vaccine, unspecified formulation [employer] Phone: 1995 Hib, unspecified Mirna Bennett [employer] [facility] Work Phone: 1995 poliovirus vaccine, unspecified formulation [employer] Phone: 1995 hepatitis B vaccine, adult dosage [facility] [address] [facility] [employer] Phone: 1995 hepatitis B vaccine, unspecified formulation [employer] Phone: Payers Date Payer Category Payer Unknown BCBS BCBS [id number] 2022-Present [phone] [address] [place] [address] [id number] 1995 Unknown [id number] [id number]3 1995 Unknown [id number] 2.16.840.1.409127.3.579.2.593 1995 Unknown [id number] 2.16.840.1.400481.3.579.2.593 1995 Unknown [id number] 2.16.840.1.287536.3.579.2.176 1995 Unknown [id number] 2.16.840.1.546870.3.579.2.176 1995 Unknown [id number] 2.16.840.1.426798.3.579.2.1286 1995 Unknown [id number] 2.16.840.1.417240.3.579.2.1286 1995 Unknown [id number] 2.16.840.1.316605.3.579.2.1286 1995 Unknown [id number] 2.16.840.1.274053.3.579.2.1286 1995 Unknown [id number] 2.16.840.1.909880.3.579.2.1259 1995 Unknown [id number] 2.16.840.1.802925.3.579.2.9 1995 Unknown [id number] 2.16.840.1.976034.3.579.2.1259 1995 Unknown [id number] 2.16.840.1.742202.3.579.2.9 1995 Unknown [id number] 2.16.840.1.672687.3.579.2.9 1995 Unknown [id number] 2.16.840.1.284668.3.579.2.9 1995 Unknown [id number] 2.16.840.1.475396.3.579.2.1259 1995 Unknown [id number] 2.16.840.1.730973.3.579.2.9 1995 Unknown [id number] 2.16.840.1.521179.3.579.2.1259 1959 Unknown [id number] [id number] [id number] Self-pay Self Pay [id number] Unknown Self Pay [id number] Unknown Self Pay [id number] Social History Date Type Detail Facility Start: 02-28-2007 End: 08-14-2022 Tobacco smoking status MNIS Current every day smoker [facility] Start: 02-28-2007 History of tobacco use Cigarette Smo ker [employer] Phone: Start: 04-22-2020 End: 08-14-2022 Cigarettes smoked current (pack per day) - Reported [employer] Phone: Start: 04-22-2020 End: 12-16-2021 Tobacco use and exposure Never used [employer] Phone: Start: 04-22-2020 End: 03-17-2023 Alcohol intake Current drinker of alcohol (finding) [employer] Work Phone: Start: 03-24-2015 Alcohol Comment occasional [employer] Work Phone: Start: 1995 Sex Assigned At Not on file M [employer] Work Phone: Start: 1995 Sex Assigned At Female F [facility] Start: 08-14-2022 Sex Assigned At N [facility] [employer] Other Start: 02-03-2022 History SDOH Physica l Activity DPW 0 [facility] Work Phone: Start: 03-27-2021 History SDOH Financial 5 [facility] Work Phone: Start: 02-03-2022 History SDOH IPV Fear 2 B ON [employer] Phone: Start: 03-27-2021 History SDOH Food Worry 1 [facility] Work Phone: Start: 01-26-2022 End: 02-05-2022 Exposure to SARS-CoV-2 (event) Not sure [facility] Start: 08-14-2022 Alcohol Comment 1-2 drinks les [...] nursing note reviewed. Exam conducted with a per diem registered nurse present. Vitals: Estimated body mass index is [...] her MSAFP order do have done at [facility]. Documented by Lauren Crystal MA on behalf of: Kathy Perry DO documented in this encounter [facility] 04-12-2022 Evaluation note Encounter Date Diagnosis Assessment [...] left ear, unspecified type (ICD-10 - H60.502) [employer] Other 12-16-2022 History of Present illness Narrative* Analia Sin RN - 02/12/2022 8:30 AM EST Patient tolerated left hip injections without distress. Dry dressing to site. Patient to MRI for further imaging. [facility] [employer] Phone: [phone]) [phone] Evaluation note* Encounter Date Diagnosis Assessment Notes Treatment Notes Treatment Clinical Notes Nov, Tattoo reaction (ICD-10 - L92.3) Use medication as directed. complete all doses. Recommend unscented soap to area [employer] Other 09-14-2022 Evaluation note* Encounter Date Diagnosis [...] no improvement in 2 to 3 days. [employer] Other 06-20-2022 Evaluation note* Encounter Date Diagnosis [...] days, Tendonitis home care material was printed [employer] Other Evaluation noteNo Assessments Information Available [facility]* Diagnosis Tear of left acetabular labrum, initial encounter documented in this encounter [facility] [employer] Phone: evaluation note* Diagnosis Well woman exam with routine gynecological exam Routine gynecological examination Exposure to STD Encounter for anatomic survey Need for maternal serum alpha-protein (MSAFP) screening Second trimester state, incidental documented in [facility] N[facility] - Reported* Type Description Date Surgical History laparoscopy female Surgical History appendectomy Surgical History bronchoscopy [employer] Other History general Narrative - Reported* Type Description Date Medical History Esophageal reflux Surgical History laparoscopy female Surgical History appendectomy Surgical History bronchoscopy [employer] Other Hospital Discharge instructions* Attachments The following attachments cannot be sent through Care Everywhere. * Joint Injections (Estonian) [facility] Work Phone: Assessments Diagnosis RUQ pain Abdominal pain, right upper quadrant Diagnosis RUQ pain Abdominal pain, right upper quadrant Advance Directives No Advanced Directives Records FoundDocuments on File Type Date Recorded Patient Porter Luggage Expl anation ACP-Advance Directive ACP-Power of Regional Director Of Finance Documents on File Type Date Recorded Patient Porter Luggage Expl anation ACP-Advance Directive ACP-Power of Regional Director Of Finance Advance Directive Response Recorded Date/ Time Advance Directives No October 09, 2017 12:18pm Reason for Referral Status Reason Specialty Diagnoses / Procedures Referre d By Contact Referred To Contact Closed Radiology Diagnoses RUQ pain Procedures [place] [address] [place] [address] Specialty Diagnoses / Procedures Referred By Contac t Referred To Contact Radiology Diagnoses Tear of left acetabular labrum, initial encounter Procedures IR [place] [address] [place] [address] Referral ID Status Reason Start Date Expiration Date Visits Re quested Visits Authorized [id number] Closed 02/12/2022 02/12/2023 1 1 Specialty Diagnoses / Procedures Referred By Contac t Referred To Contact Radiology Diagnoses Tear of left acetabular labrum, initial encounter S73.192A (ICD-10-CM) - Tear of left acetabular labrum, initial encounter Procedures IR INJ ARTHROGRAM HIP LEFT AR INJECTION HIP ARTHROGRAM [id number] - AR [place]JE[place] [address] [place] [address] Referral ID Status Reason Start Date Expiration Date Visits Re quested Visits Authorized [id number] Closed 02/05/2022 02/05/2023 1 1 Chief Complaint and Reason for Visit Chief Complaint Tenderness of left c longterm Summary Purpose Family History No Family History [...] Procedures [place] [address] [facility] [place] [address] Specialty Diagnoses / Procedures Referred By Anupama martinez Referred To Contact Radiology Diagnoses Tear of left acetabular labrum, initial encounter S73.192A (ICD-10-CM) - Tear of left acetabular labrum, initial encounter Procedures IR INJ ARTHROGRAM HIP LEFT AR INJECTION HIP ARTHROGRAM [id number] - AR [place]JE[place] [address] [place] [address] Referral ID Status Reason Start Date Expiration Date Visits Re quested Visits Authorized [id number] Closed 02/05/2022 02/05/2023 1 1 Reason Comments Routine Visit INFORMATION SOURCE (unrecogn ized section and content) DATE CREATED AUTHOR 03/29/2021 [facility] DATE CREATED AUTHOR AUTHOR'S ORGANIZ ATION 08/17/2021 [facility] DATE CREATED AUTHOR AUTHOR'S ORGANIZ ATION 08/18/2021 [facility] DATE CREATED AUTHOR AUTHOR'S ORGANIZ ATION 02/18/2022 [facility] DATE CREATED AUTHOR AUTHOR'S ORGANIZ ATION 08/11/2023 [facility] DATE CREATED AUTHOR AUTHOR'S ORGANIZ ATION 08/19/2023 [facility] EPIC Care Teams (unrecognized sec tion and content) Furnace Attendant Relationship Specialty [place] [address] [facility] [place] [address] [place] [address] PCP - General Family Medicine 03/11/15 FOR [...] BE BASED ON THE PRIMARY CLINICAL RECORDS. [facility]. provides no warranty or guarantee of the accuracy or completeness of information in this document.
[2023-08-25 10:31] VITALS: BP 133/79; PULSE 82
== END 2023-08-25 11:05 | disposition home or self-care (01) ==
LOC: US 07:01 → FBC 09:58
PROVIDERS: Visit Provider Obstetrics & Gynecology
DX: O35.HXX0 Maternal care for other (suspected) fetal abnormality and damage, fetal lower extremities anomalies, not applicable or unspecified (principal); Z3A.35 35 weeks gestation of pregnancy
CPT/HCPCS: 76818

== ENCOUNTER 2023-08-30 18:42 | Outpatient (REF) | payer BC, SELFPAY ==
--- OUTSIDE RECORDS SUMMARY | 2023-08-30 18:47 | XMS_ITS | CCD ---
Author Organization [facility] Care Team Providers Care Manager Golf Name Role Phone Mirna Bennett Primary Care Provider NO FAMILY, PHYSICIAN Primary Care Provider Unava Jammie Levy Attending Provider Mirna Bennett Primary Care Provider [phone] SAMSA ANA Admitting Unavailable SAMSA, ANA Attending [...] to adverse reactions to drug 03-24-19 16 [facility] Work Phone: (1 source) bismuth subsalicylate Drug Allergy 10-10-19 18 [facility] (5 sources) bismuth subsalicylate Drug Allergy 12-03-19 21 hives, Other (See Comments) [facility] (2 sources) bismuth subsalicylate Drug Allergy 12-03-19 21 Hives [facility] Work Phone: (2 sources) Bismuth-Containin g Compounds Drug Intolerance 03-24-19 [facility] (1 source) bismuth subcarbonate; Translations: [...] 3 12/17/2019 Active 21 day ethinyl estradiol 0.283911 mg/hr / etonogestrel 0.005 mg/hr vaginal system (7 sources) Progestin, Estrogen Start: 06-13-2018 NUVARING 0.12-0.015 MG/24HR vaginal ring NuvaRing Active fluocinonide 0.5 mg/ml topical cream (2 sources) Corticosteroid Start: 07-24-2019 fluocinonide (LIDEX) 0.05 % cream Apply topically 2 times daily. 60 g 1 07/24/2019 Active hydrocortisone 10 mg/ml / neomycin 3.5 mg/ml / polymyxin b 43202 unt/ml otic suspension (1 source) Aminoglycoside Antibacterial, Polymyxin-class Antibacterial, Corticosteroid Start: 04-12-2022 Lruvsfbd-Tdagapnxb-LQ 3.5-47738-2 3 drops left ear Three times a [...] UA Negative Negative - 4(70) +++ mg/dL [facility] Blood, UA Negative Negative - 50 Bill/mcL [facility] Clarity, UA Clear [facility] re Color, UA Yellow [facility] e Glucose, UA Negative Negative - 2000(110) ++++ mg/dL [facility] Interpretation and review of laboratory results Abnormal [facility] re Ketones, UA Positive Negative - 160(16) ++++ mg/dL [facility] Comment on above: 40 mg Leukocytes, UA Negative Negative - 500+++ Simon/mcL [facility] Nitrite, UA Negative Negative - Positive [facility] pH, UA 7.0 5 - 9 [facility] e Protein, UA Trace Negative - 2000(20) ++++ mg/dL [facility] Spec Grav, UA 1.025 1 - 1.03 [facility] Urobilinogen, UA 0.2 0.2 - 12 mg/dL [facility] e IR INJ ARTHROGRAM HIP LEFTon 02-13-2022 IR INJ ARTHROGRAM HIP LEFT EXAMINATION: FLUOROSCOPIC GUIDED LEFT HIP ARTHROGRAM, 02/12/2022 8:45 am COMPARISON: None. HISTORY: ORDERING SYSTEM PROVIDED HISTORY: Tear of left acetabular labrum, initial encounter TECHNOLOGIST PROVIDED HISTORY: Is the patient ?->No FLUOROSCOPY DOSE AND TYPE OR TIME AND EXPOSURES: 54 seconds; D AP 83 cGy cm2 PROCEDURE: CYBER SECURITY SYSTEMS ENGINEER: Gaudencio Chávez MD Informed consent was obtained [...] MD 02/12/22 Final result Normal [facility] IR INJ ARTHROGRAM HIP LEFTon 02-12-2022 Successful fluoroscopic-guided left hip arthrogram. Patient was transferred to MRI for further imaging. [facility] EXAMINATION: FLUOROSCOPIC GUIDED LEFT HIP ARTHROGRAM, 02/12/2022 8:45 am COMPARISON: None. HISTORY: ORDERING SYSTEM PROVIDED HISTORY: Tear of left acetabular labrum, initial encounter TECHNOLOGIST PROVIDED HISTORY: Is the patient ?->No FLUOROSCOPY DOSE AND TYPE OR TIME AND EXPOSURES: 54 seconds; D AP 83 cGy cm2 PROCEDURE: CYBER SECURITY SYSTEMS ENGINEER: Gaudencio Chávez MD Informed consent was obtained [...] is sent for subsequent MRI. EBL: None [facility] Gaudencio Chávez MD - 02/12/2022 EXAMINATION: FLUOROSCOPIC GUIDED LEFT HIP ARTHROGRAM, 02/12/2022 8:45 am COMPARISON: None. HISTORY: ORDERING SYSTEM PROVIDED HISTORY: Tear of left acetabular labrum, initial encounter TECHNOLOGIST PROVIDED HISTORY: Is the patient ?->No FLUOROSCOPY DOSE AND TYPE OR TIME AND EXPOSURES: 54 seconds; D AP 83 cGy cm2 PROCEDURE: CYBER SECURITY SYSTEMS ENGINEER: Gaudencio Chávez MD Informed consent was obtained [...] was transferred to MRI for further imaging. [employer] Phone: Radiology Study observation (narrative) [employer] Phone: IR INJ ARTHROGRAM HIP LEFTOr dered By: Gaudencio Chávez on 02-12-2022 [employer] Phone: MRI HIP LEFT W CONTRASTon MRI [...] MD 02/12/22 Final result Normal [facility] SARS-CoV-2 (COVID-19) RNA NA A+probe Ql (Resp)on 11-11-2021 SARS-CoV-2 (COVID-19) RNA ANNABELLE+probe Ql (Unsp spec) Positive [facility] Other PAP ACOG PANEL 2: 21 to 29on 08-17-2021 . . Normal [facility] Comment on above: Performed By: #### [id number] #### [facility] [address] [place] [address] Dr. Cesar Young Age Gdln ACOG Testing - [facility] Comment on above: Performed By: #### [id number] #### [facility] [address] [place] [address] Dr. Cesar Young DIAGNOSIS: Comment [facility] Comment on above: Result Comment: NEGA TIVE FOR INTRAEPITHELIAL LESION OR MALIGNANCY. Performed By: #### [id number] #### [facility] [address] [place] [address] Dr. Cesar Young Methodology: Comment [facility] Comment on above: Result Comment: This liquid based ThinPrep(R) pap test was screened with the use of an image guided system. Performed By: #### [id number] #### [facility] [address] [place] [address] Dr. Cesar Young Note: Comment [facility] Comment on above: Result Comment: The Pap smear is a screening test designed to aid in the detection of premalignant and malignant conditions of the uterine cervix. It is not a diagnostic procedure and should not be used as the sole means of detecting cervical cancer. Both false-positive and false-negative reports do occur. . Performed By: #### [id number] #### [facility] [address] [place] [address] Dr. Cesar Young Performed by: Comment Normal [facility] Comment on above: Result Comment: Linda Taveras, Outpatient Interviewing Clerk (ASCP) Performed By: #### [id number] #### [facility] [address] [place] [address] Dr. Cesar Young Reflex Criteria: Comment Normal [facility] Comment on above: Result Comment: The HPV DNA reflex criteria were not met with this specimen result therefore, no HPV testing was performed. . Performed By: #### [id number] #### [facility] [address] [address] [address] Cesar Young Specimen adequacy: Comment Normal [facility] Comment on above: Result Comment: Sati sfactory for evaluation. Endocervical and/or squamous metaplastic cells (endocervical component) are present. Performed By: #### [id number] #### [facility] [address] [place] [address] Dr. Cesar Young XR hand LT min 3V*on 022 XR hand LT min 3V* [facility] [place] [address] [place] [address] XRay Report Signed Patient: Vianey Chen MR#: [id number] 0 : 1995 Acct:[id number] Age/Sex: 26 / F ADM Date: 08/17/21 Loc: [facility] Room: Type: [facility] Attending Dr: Julieth HERNANDEZ Copies to: DAVID [...] 08/17/21 1451 Signed By: 08/17/21 1453 Normal [facility] XR hand LT min 3V* [facility] [employer] Other XR hand LT min 3V* [facility] [employer] Other XR hand LT min 3V* [address] [place] [address] [employer] Other XR hand LT min 3V* [place] [address] [facility] Other XR hand LT min 3V* XRay Report [facility] Other XR hand LT min 3V* Signed [facility] Other XR hand LT min 3V* Patient: Vianey Chen MR#: [id number] [facility] Other XR hand LT min 3V* 0 [facility] Other XR hand LT min 3V* : 1995 Acct:[id number] [facility] Other XR hand LT min 3V* Age/Sex: 26 / F ADM Date: 08/17/21 [facility] Other XR hand LT min 3V* Loc: [facility] Room: Type: REG CLI [facility] Other XR hand LT min 3V* Attending Dr: Julieth HERNANDEZ [facility] Other XR hand LT min 3V* Copies to: DAVID Salmeron [facility] Other XR hand LT min 3V* Ordering Provider: DAVID Salmeron [facility] Other XR hand LT min 3V* Date of Service: 08/17/21 [facility] Other XR hand LT min 3V* XR/XR hand LT min 3V*: Pain of left thumb [facility] Other XR hand LT min 3V* LEFT HAND - 4 views [facility] Other XR hand LT min 3V* CLINICAL DATA: Patient injured left hand yesterday and has bruising, pain and swelling over the [facility] Other XR hand LT min 3V* metacarpal phalangea l joint of the thumb and at the distal first metacarpal [facility] Other XR hand LT min 3V* COMPARISON: None [facility] Other XR hand LT min 3V* AP, lateral and oblique views were obtained along with a supplemental lateral view at the thumb. [facility] Other XR hand LT min 3V* There is no evidence of fracture or dislocation. There are no significant soft tissue [facility] Other XR hand LT min 3V* abnormalities. No rt [employer] Other XR hand LT min 3V* XR/XR hand LT min 3V* [facility] Other XR hand LT min 3V* IMPRESSION: [facility] Other XR hand LT min 3V* NO ACUTE BONY INJURY. [facility] Other XR hand LT min 3V* Impression dictated by: Ailin Borrego M.D.08/17/2021 2:53 PM [facility] Other XR hand LT min 3V* Dictation Location: [place] [address] [facility] Other XR hand LT min 3V* Transcribed By: GONZALO 08/17/21 1453 [facility] Other XR hand LT min 3V* Dictated By: Aiiln Borrego MD 08/17/21 1451 Located Within [facility] [employer] Other XR hand LT min 3V* Signed By: [place] [facility] Other XR hand LT min 3V* 08/17/21 1453 [facility] [employer] Other PREG HCG QUALon 06-04-2021 , QUAL Negative Normal NEGATIVE [facility] Comment on above: Performed By: #### P REG #### [facility] [address] [place] [id number] [address] Cesar Young Covid-19 PCR (CVDTBH)on SARS-CoV-2 (COVID-19) RNA ANNABELLE+probe Ql (Unsp spec) Not detected Normal NOT DETECTED [facility] Comment on above: Result Comment: This test is not yet approved or cleared by the [place] FDA. When there are no FDA-approved or cleared tests available, and other criteria are met, FDA can make tests available under an emergency access mechanism called an Emergency Use Authorization (EUA). The EUA for this test is supported by the [place] of Health and Human Service's (HHS's) declaration [...] SARS-CoV-2. Performed By: #### C VDTBH #### [facility] [address] [place], [place] [address] Dr. Cesar Young [id number] 03-28-2021 SARS-CoV-2 (COVID-19) RNA ANNABELLE+probe Ql (Unsp spec) Normal [facility] Comment on above: Performed By: #### C OVID #### [facility] [place], [place] [id number] Senior Policy Associate: Vijay Tinsley MD SARS-CoV-2 (COVID-19) RNA ANNABELLE+probe Ql (Unsp spec) Detected Abnormal NOTDET [facility] Comment on above: Result Comment: The specimen is POSITIVE for SARS-Cov-2, the novel coronavirus associated with COVID-19. Millie SARS-CoV-2 for use on the [employer]8800 [employer] is a real-time RT-PCR test intended [...] this assay. Fact sheet for Healthcare Providers: https://www.fda.gov/media/546093/download Fact sheet for Patients: https://www.fda.gov/media/630686/download METHODOLOGY: RT-PCR Results reported to the appropriate Health Department Performed By: #### C OVID #### [facility] [address] [place] [address] [id number] Senior Policy Associate: MD RADHA Hinkle-CoV-2on 03-27-2021 SARS-CoV-2 (COVID-19) RNA ANNABELLE+probe Ql (Unsp spec) NOT REPORTED Normal [facility] Comment on above: Performed By: #### C OVID #### [facility] [address] [place] [address] [id number] Senior Policy Associate: Vijay Tinsley MD CBC Auto Differentialon 04-01 Basophils (Bld) [#/Vol] 0.10 10*3/uL [facility] [employer] Work Phone: Basophils/100 WBC (Bld) 1 % 0 - 2 % [employer] Phone: Differential Type NOT REPORTED [employer] Phone: Eosinophils (Bld) [#/Vol] 0.20 10*3/uL [employer] Phone: Eosinophils/100 WBC (Bld) 2 % 0 - 4 % [employer] Phone: Erythrocyte distribution width (RBC) [Ratio] 13.9 % 11.5 - 14.9 % [employer] Phone: Hematocrit (Bld) [Volume fraction] 43.1 % 36 - 46 % [employer] Phone: Hemoglobin (Bld) [Mass/Vol] 14.2 g/dL 12 - 16 g/dL [employer] Phone: Lymphocytes (Bld) [#/Vol] 2.10 10*3/uL [employer] Phone: Lymphocytes/100 WBC (Bld) 25 % 24 - 44 % [employer] Phone: MCH (RBC) [Entitic mass] 28.7 pg 26 - 34 pg [employer] Phone: MCHC (RBC) [Mass/Vol] 33.0 g/dL 31 - 37 g/dL [employer] Phone: MCV (RBC) [Entitic vol] 87.2 fL 80 - 100 fL [employer] Phone: Monocytes (Bld) [#/Vol] 0.60 10*3/uL [employer] Phone: Monocytes/100 WBC (Bld) 7 % 1 - 7 % [employer] Phone: Platelet mean volume (Bld) [Entitic vol] 7.7 fL 6 - 12 fL [employer] Phone: Platelets (Bld) [#/Vol] 359 10*3/uL [facility] [employer] Work Phone: Platelets (Bld) [#/Vol] NOT REPORTED [facility] [employer] Work Phone: RBC (Bld) [#/Vol] 4.94 10*6/uL 4 - 5.2 m/uL [facility] [employer] Work Phone: RBC morphology finding Nom (Bld) NOT REPORTED [facility] [employer] Work Phone: Segmented neutrophils/100 WBC (Bld) 65 % 36 - 66 % [facility] [employer] Work Phone: Segs Absolute 5.40 [facility] Work Phone: WBC (Bld) [#/Vol] NOT REPORTED per 100 WBC [facility] [employer] Work Phone: WBC (Bld) [#/Vol] 8.4 10*3/uL [facility] [employer] Work Phone: WBC Morphology NOT REPORTED [facility] Work Phone: Comprehensive Metabolic Pane dawit 04-24-2020 Albumin [Mass/Vol] 3.9 g/dL 3.5 - 5.2 g/dL [facility] [employer] Work Phone: Albumin/Globulin [Mass ratio] NOT REPORTED [facility] [employer] Work Phone: ALP [Catalytic activity/Vol] 59 U/L 35 - 104 U/L [facility] [employer] Work Phone: ALT [Catalytic activity/Vol] 19 U/L 5 - 33 U/L [facility] [employer] Work Phone: Anion gap [Moles/Vol] 10 mmol/L 9 - 17 mmol/L [facility] [employer] Work Phone: AST [Catalytic activity/Vol] 15 U/L <32 [facility] [employer] Work Phone: Bilirubin Ql (U) <0.15 Low 0.3 - 1.2 mg/dL [facility] [employer] Work Phone: Bun/Cre Ratio NOT REPORTED [facility] Work Phone: Calcium [Mass/Vol] 9.2 mg/dL 8.6 - 10. 4 mg/dL [facility] Phone: Chloride [Moles/Vol] 104 mmol/L 98 - 107 mmol/L [facility] [employer] Phone: CO2 [Moles/Vol] 25 mmol/L 20 - 31 mmol/L [facility] [employer] Work Phone: Creatinine [Mass/Vol] 0.68 mg/dL 0.5 - 0.9 mg/dL [facility] [employer] Phone: GFR >60 >60 mL/min [facility] Phone: GFR Non- >60 >60 mL/min [facility] Phone: GFR/1.73 sq M predicted among non-blacks MDRD (S/P/Bld) [Vol rate/Area] [facility] [employer] Phone: Comment on above: Average GFR for 20-2 9 years old: 116 mL/min/1.73sq m Chronic Kidney Disease: <60 mL/min/1.73sq m Kidney failure: <15 mL/min/1.73sq m eGFR calculated using average adult body mass. Additional eGFR calculator available at: http://www.[employer]/multiple_crcl_2012.htm GFR/1.73 sq M predicted among non-blacks MDRD (S/P/Bld) [Vol rate/Area] NOT REPORTED [facility] Phone: Glucose [Mass/Vol] 135 mg/dL High 70 - 99 mg/dL [facility] [employer] Work Phone: Interpretation and review of laboratory results Abnormal [facility] [employer] Phone: Potassium [Moles/Vol] 3.7 mmol/L 3.7 - 5.3 mmol/L [facility] [employer] Phone: Protein [Mass/Vol] 7.1 g/dL 6.4 - 8.3 g/dL [employer] Phone: Sodium [Moles/Vol] 139 mmol/L 135 - 144 mmol/L [employer] Phone: Urea nitrogen [Mass/Vol] 11 mg/dL 6 - 20 mg/dL [employer] Phone: Otheron 04-24-2020 Immature granulocytes (Bld) [#/Vol] NOT REPORTED 0 % [employer] Phone: US GALLBLADDER RUQon 021 Unremarkable right upper quadrant ultrasound. [employer] Phone: EXAMINATION: RIGHT UPPER QUADRANT ULTRASOUND 04/24/2020 [...] No evidence of right upper quadrant ascites. [employer] Phone: Erick, pn Incoming Radiant Results From [employer] - 04/24/2020 8:18 AM EST EXAMINATION: RIGHT [...] ascites. IMPRESSION: Unremarkable right upper quadrant ultrasound. [employer] Work Phone: Vital Signs Date Time Vital Sign Value Performing Clinician Facility 04-14-2023 10:54-0500 Body mass index (BMI) [Ratio] 44.14 kg/m2 Kathy Vicky DO Work Phone: [facility] 04-14-2023 10:54-0500 Body weight 102.51 kg Kathy Vicky DO Work Phone: [facility] 04-14-2023 10:54-0500 Diastolic blood pressure 70 mm[Hg] [email or web address] Vicky DO Work Phone: [facility] 04-14-2023 10:54-0500 Systolic blood pressure 120 mm[Hg] Kathy Vicky [employer] Work Phone: [facility] 04-12-2022 10:30-0500 Body height 152.4 cm Julieth Winkler Other [facility] Other 04-12-2022 10:30-0500 Body mass index (BMI) [Ratio] 41.59 kg/m2 Julieth Cathi Other [facility] Other 04-12-2022 10:30-0500 Body temperature 98.5 [degF] Julieth Cathi Other [facility] Other 04-12-2022 10:30-0500 Body weight 96.62 kg Julieth Cathi Other [facility] Other 04-12-2022 10:30-0500 Diastolic blood pressure 87 mm[Hg] Julieth Cathi Other [facility] Other 04-12-2022 10:30-0500 Respiratory rate 18 /min Julieth Winkler Other [facility] Other 04-12-2022 10:30-0500 SaO2% (BldA) [Mass fraction] 98 % Julieth Winkler Other [facility] Other 04-12-2022 10:30-0500 Systolic blood pressure 141 mm[Hg] Julieth Winkler Other [facility] Other 11-30-2021 17:00-0400 Body height 152.4 cm Jammie Phelpsault Other [facility] Other 11-30-2021 17:00-0400 Body mass index (BMI) [Ratio] 39.06 kg/m2 Jammie Phelpsault Other [facility] Other 11-30-2021 17:00-0400 Body temperature 97.6 [degF] Jammie Mara Other [facility] Other 11-30-2021 17:00-0400 Body weight 90.72 kg Jammie Phelpsault Other [facility] Other 11-30-2021 17:00-0400 Diastolic blood pressure 84 mm[Hg] Jammie Mara Other [facility] Other 11-30-2021 17:00-0400 Respiratory rate 18 /min Jammie Phelpsault Other [facility] Other 11-30-2021 17:00-0400 SaO2% (BldA) [Mass fraction] 99 % Jammie Mara Other [facility] Other 11-30-2021 17:00-0400 Systolic blood pressure 132 mm[Hg] Jammie Mara Other [facility] Other 11-11-2021 10:30-0400 Body height 152.4 cm Julieth Cathi Other [facility] Other 11-11-2021 10:30-0400 Body mass index (BMI) [Ratio] 37.1 kg/m2 Julieth Cathi Other [facility] Other 11-11-2021 10:30-0400 Body temperature 98.1 [degF] Julieth Cathi Other [facility] Other 11-11-2021 10:30-0400 Body weight 86.18 kg Julieth Cathi Other [facility] Other 11-11-2021 10:30-0400 Respiratory rate 18 /min Julieth Cathi Other [facility] Other 11-11-2021 10:30-0400 SaO2% (BldA) [Mass fraction] 99 % Julieth Cathi Other [facility] Other 08-17-2021 14:55-0400 Body height 152.4 cm Julieth Cathi Other [facility] Other 08-17-2021 14:55-0400 Body mass index (BMI) [Ratio] 39.84 kg/m2 Julieth Cathi Other [facility] Other 08-17-2021 14:55-0400 Body temperature 97.8 [degF] Julieth Cathi Other [facility] Other 08-17-2021 14:55-0400 Body weight 92.53 kg Julieth Cathi Other [facility] Other 08-17-2021 14:55-0400 Diastolic blood pressure 74 mm[Hg] Julieth Winkler Other [facility] Other 08-17-2021 14:55-0400 Respiratory rate 18 /min Julieth Agarwalmond Other [facility] Other 08-17-2021 14:55-0400 SaO2% (BldA) [Mass fraction] 99 % Julieth Winkler Other [facility] Other 08-17-2021 14:55-0400 Systolic blood pressure 134 mm[Hg] Julieth Winkler Other [facility] Other Encounters Encounter Date Encounter Type Care Provider Facility Start: 08-17-2023 End: 08-17-2023 ambulatory KATHY VICKY Not Available Start: 08-10-2023 End: 08-10-2023 ambulatory [facility] Start: 08-04-2023 End: 08-04-2023 ambulatory KATHY VICKY Not Available Start: 07-19-2023 End: 07-19-2023 ambulatory KATHY VICKY Not Available Start: 07-11-2023 End: 07-11-2023 ambulatory [facility] Start: 07-07-2023 End: 07-07-2023 ambulatory KATHY VICKY Not Available Start: 06-14-2023 End: 06-14-2023 ambulatory KATHY VICKY Not Available Start: 05-12-2023 End: 05-12-2023 ambulatory AUBREY CYR Not Available Start: 04-14-2023 End: 04-14-2023 Patient encounter procedure Kathy Vicky DO Work Phone: [facility] Start: 04-14-2023 End: 04-14-2023 Periodic preventive med est patient 18-39 yrs Kathy Vicky DO Work Phone: [facility] Comment on above: Well woman exam with routine gynecological exam; Exposure to STD; Encounter for anatomic survey; Need for maternal serum alpha-protein (MSAFP) screening; Second trimester Start: 04-14-2023 End: 04-14-2023 ambulatory KATHY VICKY Not Available Start: 03-17-2023 End: 03-17-2023 ambulatory KATHY VICKY Not Available Start: 02-17-2023 End: 02-17-2023 ambulatory KATHY VICKY Not Available Start: 04-12-2022 End: 04-12-2022 ambulatory Julieth Cathi Other [facility] Other Start: 04-12-2022 Office outpatient vi sit 15 minutes Julieth Cathi [facility] Start: 02-12-2022 End: 02-15-2022 ambulatory [facility] Start: 02-12-2022 End: 02-14-2022 Subsequent hospital visit by physician [facility] Comment on above: Tear of left acetabu lar labrum, initial encounter Start: 11-30-2021 End: 11-30-2021 ambulatory Jammie Terry Other [facility] Other Start: 11-30-2021 Office outpatient vi sit 15 minutes Jammie Terry [facility] Start: 11-11-2021 End: 11-11-2021 ambulatory Julieth Cathi Other [facility] Other Start: 11-11-2021 Office outpatient vi sit 15 minutes Julieth Cathi [facility] Start: 08-17-2021 End: 08-17-2021 ambulatory Julieth Cathi Other [facility] Other Start: 08-17-2021 Office outpatient vi sit 15 minutes Julieth Cathi [facility] Start: 08-12-2021 End: 08-12-[address] KATHY PERRY Facility:[facility] Start: 06-04-2021 Encounter for preprocedural laboratory examination ANA SOMERS [facility] Start: 06-04-2021 End: 06-04-2021 ambulatory ANA SOMERS Facility:[facility] Start: 06-02-2021 End: 06-03-2021 ambulatory [facility]NA [facility] Facility:[facility] Start: 06-02-2021 End: 06-03-2021 Encounter for preprocedural laboratory examination ANA SOMERS Facility:[facility] Start: 07-01-2020 End: 07-01-2020 Patient encounter procedure PHYSICIAN NO FAMILY -Ultrasound [facility] [place] Start: 06-27-2020 End: 06-27-2020 Patient encounter procedure PHYSICIAN [facility] Start: 04-24-2020 End: 04-24-2020 Subsequent hospital visit by physician Mirna FERNÁNDEZ Laboratory Comment on above: RUQ pain Start: 04-24-2020 End: 04-26-2020 Subsequent hospital visit by physician [facility] Comment on above: RUQ pain Start: 05-26-2015 End: 11-24-2017 Patient encounter status [facility] Procedures Date Procedure Procedure [...] (MSAFP) screening Expected: 04/14/2023 (Approximate), Expires: 05/13/2023 [facility] Comment on above: Expected: 04/14/2023 (Approximate), Expires: 05/13/2023 Start: 04-14-2023 End: 04-14-2024 US for US OB ANATOMY SINGLE W US OB CERVICAL LENGTH Imaging Routine Encounter for anatomic survey Expected: 04/14/2023 (Approximate), Expires: 04/14/2024 [facility] Healthcare Comment on above: Expected: 04/14/2023 (Approximate), Expires: 04/14/2024 Start: 03-27-2022 Depression Monitoring Depression Mon itoring [email or web address] Start: 09-28-2021 Influenza vaccination Flu vaccine (# 1) [email or web address] Start: 04-22-2021 Influenza vaccination Flu vaccine (# 1) [employer] Phone: Comment on above: Postponed from 10/29 (Patient Refused) Start: 04-22-2021 Pneumococcal 0-64 ye ars Vaccine (1 of 1 - PPSV23) Pneumococcal 0-64 years Vaccine (1 of 1 - PPSV23) [employer] Phone: Comment on above: Postponed from 02/19 (Patient Refused) Start: 04-07-2021 DTaP/Tdap/Td vaccine (7 - Td or Tdap) DTaP/Tdap/Td vaccine (7 - Td or Tdap) [email or web address] Start: 04-07-2021 DTaP/Tdap/Td vaccine (7 - Td) DTaP/Tdap/Td vaccine (7 - Td) [employer] Phone: Start: 07-01-2020 Duplex scan of lower limb veins US venous duplex [facility] Start: 02-20-2016 Screening for malign ant neoplasm of cervix [facility] [employer] Start: 2013 Hepatitis C screening Hepatitis C sc reen [facility] [employer] Start: 2010 HIV screening [facility] Start: 2001 Pneumococcal 0-64 ye ars Vaccine (1 - PCV) Pneumococcal 0-64 years Vaccine (1 - PCV) [facility] [employer] Start: 1995 COVID-19 Vaccine (#1) COVID-19 Vacci ne (#1) [facility] Start: 1995 Hepatitis C screening Hepatitis C sc jyothi [employer] Phone: CHLAMYDIA TRACHOMATI S (GENITO/STI) CHLAMYDIA TRACHOMATIS (GENITO/STI) Lab Routine Exposure to STD Ordered: 04/14/2023 [facility] Comment on above: Ordered: 04/14/2023 Cytology Cervical or vaginal smear or scraping study Pap Smear Pathology and Cytology Routine Well woman exam with routine gynecological exam Ordered: 04/14/2023 [facility] [employer] Phone: Comment on above: Ordered: 04/14/2023 End: 02-12-2022 IR INJ ARTHROGRAM HIP LEFT IR INJ ARTHROGRAM HIP LEFT Imaging Routine Tear of left acetabular labrum, initial encounter 1 Occurrences starting 02/12/2022 until 02/12/2022 [facility] [employer] Phone: Comment on above: 1 Occurrences starti ng 02/12/2022 until 02/12/2022 Neisseria gonorrhoea e DNA [Presence] in Unspecified specimen by ANNABELLE with probe detection Neisseria gonorrhea DNA probe, direct Lab Routine Exposure to STD Ordered: 04/14/2023 [facility] Healthcare Comment on above: Ordered: 04/14/2023 SURESWAB(R) ADVANCED VAGINITIS PLUS, TMA SURESWAB(R) ADVANCED VAGINITIS PLUS, TMA Pathology and Cytology Routine Exposure to STD Ordered: 04/14/2023 [facility] Comment on above: Ordered: 04/14/2023 Immunizations Immunization Date Immunization Notes Care Provider Parker rodrigues 04-07-2011 human papilloma viru s vaccine, quadrivalent [facility] [employer] Phone: 04-07-2011 tetanus toxoid, redu julia diphtheria toxoid, and acellular pertussis vaccine, adsorbed [employer] Phone: 02-04-2010 influenza virus vacc ine, unspecified formulation [facility] [employer] Phone: 12-23-2009 human papilloma viru s vaccine, quadrivalent [facility] [employer] Phone: 12-23-2009 meningococcal ACWY vaccine, unspecified formulation [facility] [employer] Phone: 04-23-2009 human papilloma viru s vaccine, quadrivalent [facility] Work Phone: 10-21-2000 diphtheria, tetanus toxoids and acellular pertussis vaccine [facility] [employer] Phone: 10-21-2000 measles, mumps and r ubella virus vaccine [facility] Phone: 07-25-1997 diphtheria, tetanus toxoids and acellular pertussis vaccine [facility] [employer] Phone: 07-25-1997 hepatitis B vaccine, adult dosage [facility] [address] [facility] Work Phone: 07-25-1997 hepatitis B vaccine, unspecified formulation [facility] Phone: 07-25-1997 Hib, unspecified [facility] Work Phone: 07-19-1997 poliovirus vaccine, unspecified formulation [facility] Phone: 09-27-1996 diphtheria, tetanus toxoids and acellular pertussis vaccine [facility] [employer] Phone: 09-27-1996 Hib, unspecified [facility] Work Phone: 09-27-1996 measles, mumps and r ubella virus vaccine [facility] Phone: 09-27-1996 poliovirus vaccine, unspecified formulation [facility] [employer] Phone: 1995 diphtheria, tetanus toxoids and acellular pertussis vaccine [employer] Phone: 1995 Hib, unspecified Mirna Bennett [employer] Work Phone: 1995 poliovirus vaccine, unspecified formulation [employer] Phone: 1995 diphtheria, tetanus toxoids and acellular pertussis vaccine [employer] Phone: 1995 hepatitis B vaccine, adult dosage [facility] [address] [facility] [employer] Phone: 1995 hepatitis B vaccine, unspecified formulation [employer] Phone: 1995 Hib, unspecified Mirna Bennett [employer] [facility] Work Phone: 1995 poliovirus vaccine, unspecified formulation [employer] Phone: 1995 hepatitis B vaccine, adult dosage [facility] [address] [facility] [employer] Phone: 1995 hepatitis B vaccine, unspecified formulation [employer] Phone: Payers Date Payer Category Payer Unknown BCBS BCBS [id number] 2022-Present [phone] [address] [place] [address] [id number] 1995 Unknown [id number] [id number] 1995 Unknown [id number] 2.16.840.1.258230.3.579.2.593 1995 Unknown [id number] 2.16.840.1.739462.3.579.2.593 1995 Unknown [id number] 2.16.840.1.135255.3.579.2.176 1995 Unknown [id number] 2.16.840.1.905895.3.579.2.176 1995 Unknown [id number] 2.16.840.1.182374.3.579.2.1286 1995 Unknown [id number] 2.16.840.1.983005.3.579.2.1286 1995 Unknown [id number] 2.16.840.1.374174.3.579.2.1286 1995 Unknown [id number] 2.16.840.1.067333.3.579.2.1286 1995 Unknown [id number] 2.16.840.1.951895.3.579.2.1259 1995 Unknown [id number] 2.16.840.1.051269.3.579.2.9 1995 Unknown [id number] 2.16.840.1.293337.3.579.2.1259 1995 Unknown [id number] 2.16.840.1.628984.3.579.2.9 1995 Unknown [id number] 2.16.840.1.580046.3.579.2.9 1995 Unknown [id number] 2.16.840.1.048317.3.579.2.9 1995 Unknown [id number] 2.16.840.1.370711.3.579.2.1259 1995 Unknown [id number] 2.16.840.1.350322.3.579.2.9 1995 Unknown [id number] 2.16.840.1.648765.3.579.2.1259 1959 Unknown [id number] [id number] [id number] Self-pay Self Pay [id number] Unknown Self Pay [id number] Unknown Self Pay [id number] Social History Date Type Detail Facility Start: 02-28-2007 End: 08-14-2022 Tobacco smoking status ALIS Current every day smoker [facility] Start: 02-28-2007 History of tobacco use Cigarette Smo ker [employer] Phone: Start: 04-22-2020 End: 08-14-2022 Cigarettes smoked current (pack per day) - Reported [employer] Phone: Start: 04-22-2020 End: 12-16-2021 Tobacco use and exposure Never used [employer] Phone: Start: 04-22-2020 End: 03-17-2023 Alcohol intake Current drinker of alcohol (finding) [employer] Work Phone: Start: 03-24-2015 Alcohol Comment occasional [employer] Work Phone: Start: 1995 Sex Assigned At Not on file [facility] Work Phone: Start: 1995 Sex Assigned At Female F [facility] Start: 08-14-2022 Sex Assigned At N [facility] [employer] Other Start: 02-03-2022 History SDOH Physica l Activity DPW 0 [facility] [employer] Work Phone: Start: 03-27-2021 History SDOH Financial 5 [facility] [employer] Work Phone: Start: 02-03-2022 History SDOH IPV Fear 2 B ON [employer] Phone: Start: 03-27-2021 History SDOH Food Worry 1 [facility] [employer] Work Phone: Start: 01-26-2022 End: 02-05-2022 Exposure to SARS-CoV-2 (event) Not sure [facility] Start: 08-14-2022 Alcohol Comment 1-2 [...] nursing note reviewed. 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 Vitals: Estimated body mass index is [...] her MSAFP order do have done at [facility]. Documented by Lauren Crystal MA on behalf of: Kathy Perry DO documented in this encounter [facility] 04-12-2022 Evaluation note Encounter Date Diagnosis [...] left ear, unspecified type (ICD-10 - H60.502) [facility] Other 12-16-2022 History of Present illness Narrative* Analia Sin RN - 02/12/2022 8:30 AM EST Patient tolerated left hip injections without distress. Dry dressing to site. [facility] to MRI for further imaging. [facility] [employer] Phone: [phone] Evaluation note* Encounter Date Diagnosis Assessment Notes Treatment Notes Treatment Clinical Notes Nov, Tattoo reaction (ICD-10 - L92.3) Use medication as directed. complete all doses. Recommend unscented soap to area [facility] Other 09-14-2022 Evaluation note* Encounter Date Diagnosis [...] no improvement in 2 to 3 days. [facility] Other 06-20-2022 Evaluation note* Encounter Date Diagnosis [...] days, Tendonitis home care material was printed [facility] Other Evaluation noteNo Assessments Information Available [facility]* Diagnosis Tear of left acetabular labrum, initial encounter documented in this encounter [facility] [employer] Phone: evaluation note* Diagnosis Well woman exam with routine gynecological exam Routine gynecological examination Exposure to STD Encounter for anatomic survey Need for maternal serum alpha-protein (MSAFP) screening Second trimester state, incidental documented in this encounter [facility] N[facility]ative - Reported* Type Description Date Surgical History laparoscopy female Surgical History appendectomy Surgical History bronchoscopy [facility] Other History general Narrative - Reported* Type Description Date Medical History Esophageal reflux Surgical History laparoscopy female Surgical History appendectomy Surgical History bronchoscopy [facility] Other Hospital Discharge instructions* Attachments The following attachments cannot be sent through Care Everywhere. * Joint Injections (Sinhala) documented in [facility] Work Phone: Assessments Diagnosis RUQ pain Abdominal pain, right upper quadrant Diagnosis RUQ pain Abdominal pain, right upper quadrant Advance Directives No Advanced Directives Records FoundDocuments on File Type Date Recorded Patient [employer] Team Member Expl anation ACP-Advance Directive ACP-Power of Channel Program Manager Documents on File Type Date Recorded Patient [employer] Team Member Expl anation ACP-Advance Directive ACP-Power of Channel Program Manager Advance Directive Response Recorded Date/ Time Advance Directives No October 09, 2017 12:18pm Reason for Referral Status Reason Specialty Diagnoses / Procedures Referre d By Contact Referred To Contact Closed Radiology Diagnoses RUQ pain Procedures [place] [address] [place] [address] Specialty Diagnoses / Procedures Referred By Contac t Referred To Contact Radiology Diagnoses Tear of left acetabular labrum, initial encounter Procedures IR [place] [address] [place] [address] Referral ID Status Reason Start Date Expiration Date Visits Re quested Visits Authorized [id number] Closed 02/12/2022 02/12/2023 1 1 Specialty Diagnoses / Procedures Referred By Contac t Referred To Contact Radiology Diagnoses Tear of left acetabular labrum, initial encounter S73.192A (ICD-10-CM) - Tear of left acetabular labrum, initial encounter Procedures IR INJ ARTHROGRAM HIP LEFT [place] INJECTION HIP ARTHROGRAM [address]6330 - [place]JE[place] [address] [place] [address] Referral ID Status Reason Start Date Expiration Date Visits Re quested Visits Authorized [id number] Closed 02/05/2022 02/05/2023 1 1 Chief Complaint [...] Procedures [place] [address] [facility] [place] [address] Specialty Diagnoses / Procedures Referred By Anupama martinez Referred To Contact Radiology Diagnoses Tear of left acetabular labrum, initial encounter S73.192A (ICD-10-CM) - Tear of left acetabular labrum, initial encounter Procedures IR INJ ARTHROGRAM HIP LEFT IL INJECTION HIP ARTHROGRAM [address]47[address] - [place]JE[place] [address] [place] [address] Referral ID Status Reason Start Date Expiration Date Visits Re quested Visits Authorized [id number] Closed 02/05/2022 02/05/2023 1 1 Reason Comments Routine Visit INFORMATION SOURCE (unrecogn ized section and content) DATE CREATED AUTHOR 03/29/2021 [facility] DATE CREATED AUTHOR AUTHOR'S ORGANIZ ATION 08/17/2021 [facility] DATE CREATED AUTHOR AUTHOR'S ORGANIZ ATION 08/18/2021 [facility] DATE CREATED AUTHOR AUTHOR'S ORGANIZ ATION 02/18/2022 [facility] DATE CREATED AUTHOR AUTHOR'S ORGANIZ ATION 08/11/2023 [facility] DATE CREATED AUTHOR AUTHOR'S ORGANIZ ATION 08/19/2023 [facility] d[facility] Specialists [employer] Care Teams (unrecognized sec tion and content) Manager Golf Relationship Specialty [place] [address] [facility] [place] [address] PCP - General Family Medicine 03/11/15 FOR [...] BE BASED ON THE PRIMARY CLINICAL RECORDS. [employer] [facility]. provides no warranty or guarantee of the accuracy or completeness of information in this document.
== END 2023-08-30 18:43 | disposition home or self-care (01) ==
LOC: LAB 18:42
PROVIDERS: Visit Provider Obstetrics & Gynecology
DX: Z34.93 Encounter for supervision of normal pregnancy, unspecified, third trimester (principal)
CPT/HCPCS: 87081

== ENCOUNTER 2023-09-07 07:16 | Outpatient (OUT) | payer BC, SELFPAY ==
--- NOTE | 2023-09-07 10:53 | US_ITS ---
[address] [address] Patient Name: DARRIUS VERGARA MRN: [id number] date: 1995 Sex: F Assigned Patient Location: [facility] Current Patient Location: [facility] Accession/Order Number: [id number] Exam Date: 09/07/2023 11:00 Report Date: 09/07/2023 11:29 At the request of: KATHY KIMBLE Procedure: US OB BPP w non-stress EXAMINATION: US OB BPP w non-stress HISTORY: Club foot of fetus COMPARISON: 08/25/2023 TECHNIQUE: Ultrasound biophysical profile was performed in the radiology department. non-reactive stress testing was performed by nursing staff in the birthing center. FINDINGS: BREATHING MOVEMENTS: 2 GROSS BODY MOVEMENTS: 2 TONE: 2 QUALITATIVE AMNIOTIC FLUID VOLUME: 2 PRESENTATION: CEPHALIC HEART RATE: 147.54 bpm AMNIOTIC FLUID VOLUME: 25.5 cm GESTATIONAL AGE: 37 weeks 2 days US/US OB BPP w non-stress IMPRESSION: Total biophysical profile score: 8 Electronically authenticated by: ELDER GONZALEZ Date: 09/07/2023 11:29
[2023-09-07 11:14] VITALS: BP 134/80; PULSE 85
== END 2023-09-07 11:45 | disposition home or self-care (01) ==
LOC: US 07:16 → FBC 10:51
PROVIDERS: Visit Provider Obstetrics & Gynecology
DX: O35.HXX0 Maternal care for other (suspected) fetal abnormality and damage, fetal lower extremities anomalies, not applicable or unspecified (principal); Z3A.37 37 weeks gestation of pregnancy
CPT/HCPCS: 76818

== ENCOUNTER 2023-09-09 16:01 | Inpatient (IN) | payer BC, SELFPAY ==
[2023-09-09] VITALS (11 sets, daily range): BP systolic 128–154; BP diastolic 66–90; PULSE 77–88; TEMP 36.6
[2023-09-09 17:01] LABS: Hematocrit 35.9 % (36.0-48.0); Mean Corpuscular HGB Conc 33.4 g/dL (29.9-35.2); Mean Corpuscular Hemoglobin 28.8 pg (26.7-34.0); Mean Corpuscular Volume 86.1 fL (81.0-99.0); Mean Platelet Volume 10.7 fL (9.5-13.5); Platelet Count 385 10^3/uL (150-450); Red Blood Count 4.17 10^6/uL (4.20-5.40); White Blood Count 11.7 10^3/uL (4.0-11.0)
[2023-09-09] MEDS: DINOPROSTONE 10 MG VAG INSERT.ER VAGINAL (17:15)
[2023-09-09 18:46] LABS: Amphetamine Screen Urine NEGATIVE (NEGATIVE); Barbiturates Screen Urine NEGATIVE (NEGATIVE); Benzodiazepines Screen Urine NEGATIVE (NEGATIVE); Buprenorphine Screen Urine NEGATIVE (NEGATIVE); Cannabinoid Screen Urine NEGATIVE (NEGATIVE); Cocaine Screen Urine NEGATIVE (NEGATIVE); Methadone Screen Urine NEGATIVE (NEGATIVE); Methamphetamines Screen Urine NEGATIVE (NEGATIVE); Opiate Screen Urine NEGATIVE (NEGATIVE); Oxycodone Screen Urine NEGATIVE (NEGATIVE); Phencyclidine Screen Urine NEGATIVE (NEGATIVE); Tricyclic Antidepressant Urine NEGATIVE (NEGATIVE)
[2023-09-09] MEDS: CALCIUM CARBONATE 500 MG (200MG ELEMENTAL) TAB CHEW PO (22:11)
[2023-09-09] MEDS: LABETALOL HCL 100 MG TABLET PO (22:11)
[2023-09-10] VITALS (54 sets, daily range): BP systolic 96–137; BP diastolic 52–86; PULSE 70–90; TEMP 36.2–36.6; O2SAT 95–99
[2023-09-10] MEDS: OXYTOCIN/0.9 % SODIUM CHLORIDE 10 UNITS/500 ML PLAST..BAG 6 UNIT IV (08:30)
[2023-09-10] MEDS: LABETALOL HCL 100 MG TABLET PO ×2 (08:43→21:07)
[2023-09-10] MEDS: CALCIUM CARBONATE 500 MG (200MG ELEMENTAL) TAB CHEW PO (08:43)
--- NOTE | 2023-09-10 09:35 | P.OBHP_ITS ---
OB - H&P: HPI History of Present Illness Chief complaint: INDUCTION : 1 Para: 0 Gestational age based on last menstrual period: 37 3/7wks Narrative: 27 yo with ho preeclampsia controlled with labetalol, presents for induction of labor, pt had cervidil placed, History of Present Dating criteria: LMP confirmed by 1st trimester US care: good care Ultrasounds: normal 1st trimester US and normal mid trimester US complications: preeclampsia Labs Blood type: A (+) positive Rubella: immune RPR/VDLR: nonreactive GBS status: negative HBsAG: negative Review of Systems ROS Status of ROS: 10 or more systems reviewed and unremarkable except as noted in history and below [facility] Medical History (Updated 09/10/23 @ 09:40 by Alvarado Perry DO) Hypertension affecting ?O16.9 - Unspecified maternal hypertension, unspecified trimester (ICD-10) GERD (gastroesophageal reflux disease) ?K21.9 - Gastro-esophageal reflux disease without esophagitis (ICD-10) Surgical History History of exploratory laparotomy ?Z98.890 - Other specified postprocedural states (ICD-10) History of appendectomy ?Z90.49 - Acquired absence of other specified parts of digestive tract (ICD- 10) Meds Home Medications and Allergies Home Medications ?Medication ?Instructions ?Recorded ?Confirmed ?Type vits,calcium 21-iron fum 1 tab PO DAILY 08/04/23 09/09/23 History 14 mg iron-folic acid 400 mcg tablet ( Complete) labetalol 100 mg tablet mg PO Q12H 09/09/23 History Allergies Allergy/AdvReac Type Severity Reaction Status Date / Time bismuth subsalicylate Allergy Intermediate Hives Verified 08/04/23 13:52 [From Pepto-Bismol] Exam Constitutional Vital Signs, click to edit/add: Last Vital Signs Temp 97.5 F L 09/10/23 08:06 Pulse 77 09/10/23 09:08 Resp 16 09/09/23 18:27 BP 137/80 09/10/23 09:08 Documenting provider has reviewed patient's vital signs: yes Common normals: no apparent distress Respiratory Common normals: normal respiratory effort and clear to auscultation bilaterally Cardio Common normals: regular rate and regular rhythm GI Common normals: Normal to inspection, nondistended, normoactive bowel sounds present Extremity Common normals: no calf tenderness Results Labs Labs: Short CBC 09/09/23 Range/Units 16:50 WBC 11.7 H (4.0-11.0) 10^3/uL Hgb 12.0 (12.0-16.0) g/dL Hct 35.9 L (36.0-48.0) % Plt Count 385 (150-450) 10^3/uL OB - A/P Assessment and Plan (1) Intrauterine : (2) Preeclampsia: Assessment and Plan: cont labetalol (3) Anxiety: (4) heart deceleration: Assessment and Plan: pt remote from delivery, non reactive tracing, decreased variablity, dt being remote from delivery and baby being able to tolerate trial of labor, all options discussed with patient will proceed to or, consent obtained, mmc reviewed procedure reviewed, all questions answered
[2023-09-10] MEDS: CITRIC ACID/SODIUM CITRATE 30 ML SOLUTION ORACIT SHOHL'S SOLN PO (09:48)
[2023-09-10] MEDS: FAMOTIDINE/PF 20 MG/2 ML VIAL IV (09:48)
[2023-09-10] MEDS: 0.9 % SODIUM CHLORIDE 1,000 ML 1000 ML IV (09:48)
[2023-09-10] MEDS: METOCLOPRAMIDE HCL 10 MG/2 ML VIAL IVP (09:48)
[2023-09-10] MEDS: CEFAZOLIN SODIUM/DEXTROSE,ISO 2 GM/50 ML PIGGYBACK IV ×2 (09:48→17:07)
--- NOTE | 2023-09-10 10:55 | PM.ONB ---
Brief Operative Note Date of procedure: 09/10/23 Pre-op diagnosis general: iup at 37 3/7wks, preeclampsia, failure to induce Post-op diagnosis: same as pre-op Procedure: NAME OF PROCEDURE: [ section ] PROCEDURE: Patient was taken back to the Operating Room where she was given a spinal anesthesia with Duramorph without difficulty. She was prepped and draped in the normal sterile fashion. A Pfannenstiel skin incision was then made 2 cm above the symphysis pubis and carried down to underlying rectus fascia using a Bovie. The fascia was incised in the midline and extended laterally using Tripp scissors. Two Neyda clamps were placed on the superior aspect of the fascia and dissected off the underlying rectus muscles. The same was performed on the inferior aspect as well. The muscles were then in the midline. Peritoneum was identified and entered bluntly. The peritoneum was then extended superiorly and inferiorly with good visualization of the bladder. The bladder blade was inserted. A low transverse incision was made on the patient's uterus and extended laterally digitally. The was then delivered atraumatically after the bladder blade was removed in the cephalic position. The cord was clamped and cut. Cord blood was obtained. The infant was handed off to awaiting team. The patient's placenta was spontaneously delivered. The uterus was then exteriorized. The uterus was cleared of all clots and debris. The bladder blade was reinserted. The patient's uterine incision was closed using #0 Vicryl in a running lock fashion. Excellent hemostasis was assured. The uterus was then returned to the patient's abdomen. The patient's abdomen was copiously irrigated using warm saline. Peritoneal gutters were cleared of all clots and debris. Again excellent hemostasis was assured. The patient's peritoneum was closed using 3-0 Vicryl in a running fashion. The patient's fascia was closed using #0 Vicryl in a running fashion. The patient's skin was closed using 4-0 Vicryl subcuticularly. The patient tolerated the procedure well. Sponge, lap, and needle counts were correct x2. The patient was taken to the Recovery Room in stable condition. Anesthesia: spinal Surgeon: Alvarado Perry Corrosion Control Technician: Demetria Mendez Estimated blood loss (mL): 575 Pathology: other (placenta) Condition: stable Disposition: PACU Urinary Catheter Management Urinary Catheter Management Urethral: Cath placed during this visit: yes Urethral indwelling: No Insertion date: 09/10/23 Insertion time: 09:37
--- NOTE | 2023-09-10 11:01 | PM.OBPRCCS ---
Procedure Pre-op/Post-op diagnoses: Pre-Op/Post-Op Diagnoses Operation Date: 09/10/23 10:00 <No data on this case meets the specified criteria> Procedure: Procedures Operation Date: 09/10/23 10:00 Actual Procedure Side Surgeon p Not Applicable Alvarado Perry DO Restaurant Host/Hostess: Demetria Mendez Estimated blood loss (mL): 575 Disposition: PACU Anesthesia type: Spinal
[2023-09-10] MEDS: OXYTOCIN/0.9 % SODIUM CHLORIDE 20 UNITS/1,000 ML PLAST..BAG 125 UNIT IV (13:22)
[2023-09-10] MEDS: KETOROLAC TROMETHAMINE 30 MG/ML VIAL IVP ×2 (17:05→22:42)
--- NOTE | 2023-09-10 17:49 | RESP.RT ---
Done per nursing
[2023-09-10] MEDS: ACETAMINOPHEN 500 MG TABLET 1000 MG PO (18:36)
[2023-09-10] MEDS: ENOXAPARIN SODIUM 40 MG/0.4 ML SYRINGE SUBQ (22:42)
[2023-09-11 02:08] VITALS: BP 118/63; PULSE 83
[2023-09-11] MEDS: KETOROLAC TROMETHAMINE 30 MG/ML VIAL IVP (05:32)
[2023-09-11 06:19] LABS: Basophils Percent Auto 0.2 % (0.2-2.0); Hematocrit 30.1 % (36.0-48.0); Hemoglobin 9.7 g/dL (12.0-16.0); Immature Granulocytes Abs Auto 0.06 10^3/uL (0.00-0.03); Immature Granulocytes Pct Auto 0.4 % (0.0-0.5); Lymphocytes Percent Auto 12.6 % (20.5-60.0); Mean Corpuscular HGB Conc 32.2 g/dL (29.9-35.2); Mean Corpuscular Volume 90.1 fL (81.0-99.0); Neutrophils Absolute Auto 13.2 10^3/uL (1.4-6.5); Neutrophils Percent Auto 80.8 % (43.0-75.0); Platelet Count 301 10^3/uL (150-450); Red Blood Count 3.34 10^6/uL (4.20-5.40); Red Cell Distribution Width 14.6 % (11.0-15.0); White Blood Count 16.3 10^3/uL (4.0-11.0)
[2023-09-11 08:11] VITALS: BP 128/68; PULSE 78; TEMP 36.9
[2023-09-11] MEDS: ACETAMINOPHEN 500 MG TABLET 1000 MG PO ×2 (08:16→17:41)
[2023-09-11] MEDS: DOCUSATE SODIUM 100 MG CAPSULE PO ×2 (08:16→21:11)
[2023-09-11] MEDS: LABETALOL HCL 100 MG TABLET PO ×2 (08:16→21:11)
--- NOTE | 2023-09-11 10:01 | PM.OBPN ---
OB - PN: Subj Subjective Patient comments: no complaints [place] status: doing well Exam Constitutional Vital Signs, click to edit/add: Last Vital Signs Temp 97.9 F 09/10/23 17:04 Pulse 78 09/11/23 08:11 Resp 14 09/10/23 17:04 BP 128/68 09/11/23 08:11 Pulse Ox 98 09/10/23 17:04 O2 Del Method Room Air 09/10/23 17:04 Documenting provider has reviewed patient's vital signs: yes Common normals: no apparent distress General appearance: cooperative HENMT Common normals: normocephalic Eye Common normals: EOMs intact bilaterally Neck & C-Spine Common normals: full ROM Lymph Lymphatic: no lymphadenopathy noted Chest Common normals: inspection of chest normal Respiratory Common normals: normal respiratory effort Effort & inspection: able to speak in complete sentences Auscultation: clear to auscultation bilaterally Cardio Common normals: regular rate and regular rhythm Rate: regular rate Rhythm: regular rhythm GI Common normals: Normal to inspection, nondistended, normoactive bowel sounds present Common normals: no CVA tenderness Back & Pelvis Common normals: no CVA tenderness Extremity Common normals: normal to inspection Neuro Common normals: oriented x3 Sensorium/orientation: awake, alert, oriented to person, oriented to place, oriented to time and orientation impaired Psych Common normals: mental status grossly normal, thought process normal and cooperative Results Labs Labs: Short CBC 09/11/23 Range/Units 06:03 WBC 16.3 H (4.0-11.0) 10^3/uL Hgb 9.7 L (12.0-16.0) g/dL Hct 30.1 L (36.0-48.0) % Plt Count 301 (150-450) 10^3/uL Urinary Catheter Management Urinary Catheter Management Urethral: Cath placed during this visit: yes Urethral indwelling: No Insertion date: 09/10/23 Insertion time: 09:37 2-way Urethral: Cath placed during this visit: no OB - PN: A/P Assessment and Plan (1) Intrauterine : (2) Preeclampsia: (3) Anxiety: (4) heart deceleration: Plan - day: 1 Plan: routine postop care Time Spent with Patient Time: Total time spent is greater than 50% in coordination of care (as documented) at patient's floor/unit and/or counseling patient: Total time spent with greater than 50% in coordination of care (as documented) at patient's floor/unit and/or counseling patient: less than 15 minutes
[2023-09-11] MEDS: IBUPROFEN 400 MG TABLET 800 MG PO ×2 (11:37→17:41)
[2023-09-11 17:23] VITALS: BP 131/76; PULSE 85
[2023-09-11 17:27] VITALS: TEMP 36.6
[2023-09-11 21:11] VITALS: BP 137/75; PULSE 78
[2023-09-12 02:10] VITALS: BP 118/66; PULSE 76
[2023-09-12] MEDS: ACETAMINOPHEN 500 MG TABLET 1000 MG PO ×2 (02:17→11:27)
[2023-09-12] MEDS: ENOXAPARIN SODIUM 40 MG/0.4 ML SYRINGE SUBQ (02:18)
[2023-09-12] MEDS: IBUPROFEN 400 MG TABLET 800 MG PO ×2 (02:18→08:25)
[2023-09-12 08:29] VITALS: BP 134/69; PULSE 72
[2023-09-12 08:30] VITALS: PULSE 72; TEMP 36.8
[2023-09-12] MEDS: DOCUSATE SODIUM 100 MG CAPSULE PO (08:47)
[2023-09-12] MEDS: LABETALOL HCL 100 MG TABLET PO (08:47)
--- NOTE | 2023-09-12 13:03 | PM.OBPN ---
OB - PN: Subj Subjective Patient comments: no complaints and pain well controlled [place] status: doing well Exam Constitutional Vital Signs, click to edit/add: Last Vital Signs Temp 98.2 F 09/12/23 08:30 Pulse 72 09/12/23 08:30 Resp 16 09/12/23 08:30 BP 134/69 09/12/23 08:29 Pulse Ox 98 09/10/23 17:04 O2 Del Method Room Air 09/12/23 08:30 Documenting provider has reviewed patient's vital signs: yes Common normals: no apparent distress Respiratory Common normals: normal respiratory effort and clear to auscultation bilaterally Cardio Common normals: regular rate and regular rhythm GI Common normals: Normal to inspection, nondistended, normoactive bowel sounds present Extremity Common normals: no calf tenderness Urinary Catheter Management Urinary Catheter Management Urethral: Cath placed during this visit: yes Urethral indwelling: No Insertion date: 09/10/23 Insertion time: 09:37 2-way Urethral: Cath placed during this visit: no OB - PN: A/P Assessment and Plan (1) Intrauterine : (2) Preeclampsia: (3) Anxiety: (4) heart deceleration: Plan - day: 2 Plan: routine postop care, discharge home and other (fu 1wk) Time Spent with Patient Time: Total time spent is greater than 50% in coordination of care (as documented) at patient's floor/unit and/or counseling patient: Total time spent with greater than 50% in coordination of care (as documented) at patient's floor/unit and/or counseling patient: less than 15 minutes
== END 2023-09-12 17:23 | disposition home or self-care (01) | DRG 788 ==
PROVIDERS: Admitting Provider Obstetrics & Gynecology; Visit Provider Obstetrics & Gynecology
PROC: 10D00Z1 Extraction of Products of Conception, Low, Open Approach (ICD-10-PCS; CPT 59514; principal; 2023-09-10 10:00)
DX: O11.4 Pre-existing hypertension with pre-eclampsia, complicating childbirth (principal); O10.92 Unspecified pre-existing hypertension complicating childbirth; O62.0 Primary inadequate contractions; O76 Abnormality in fetal heart rate and rhythm complicating labor and delivery; O99.62 Diseases of the digestive system complicating childbirth; Z3A.37 37 weeks gestation of pregnancy; Z37.0 Single live birth; O99.344 Other mental disorders complicating childbirth; F41.9 Anxiety disorder, unspecified; Z87.891 Personal history of nicotine dependence; K21.9 Gastro-esophageal reflux disease without esophagitis
CPT/HCPCS: 36415; 51702; 59050; 64488; 80307; 85025; 85027; 86850; 86900; 86901; 94667; 94668; 96372; 96374; 96375; 96376; J0131; J0665; J0690; J1100; J1650; J1885; J2274; J2371; J2405; J2590; J2765

== ENCOUNTER 2024-04-17 20:36 | Outpatient (REF) | payer BC, SELFPAY ==
--- OUTSIDE RECORDS SUMMARY | 2024-04-17 20:39 | XMS_ITS | CCD ---
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 Name Role Phone Mirna Bennett Primary Care Provider NO FAMILY, PHYSICIAN Primary Care Provider Unava Jammie Levy Attending Provider Mirna Bennett Primary Care Provider SAMSA ANA Admitting Unavailable SAMSAANA Attending Unavailable SAMSAANA Consulting Unavailable SAMSA ANA Admitting Unavailable SAMSAANA Attending Unavailable SAMSA ANA Consulting Unavailable AGUBOSIM KELSEY Consulting Unavailable RAAD, YARITZA Consulting Unavailable DR ALVARADO PERRY Admitting Unavailable VICKY, DR CHAVEZ Attending Unavailable DR ALVARADO PERRY Consulting Unavailable Julieth Winkler Unavailable Jammie Terry Unavailable Mirna Bennett MD Primary Care Provider ELICIA GONZALEZ Referring Unavailable MIRNA BENNETT Primary Care Unavailable ELICIA GONZALEZ Referring Unavailable MIRNA BENNETT Primary Care Unavailable Unavailable Primary Care Provider UnavailMIRNA Martinez Referring Unavailable MIRNA BENNETT Primary Care Unavailable LEO JOHNSON Attending Unavailable MIRNA BENNETT Referring Unavailable MIRNA BENNETT Primary Care Unavailable PERRY YBARRA Attending Unavailable MD Mirna Bennett Primary Care Provider [phone] DO Alvarado Perry Attending Provider [phone] Mirna Bennett Primary Care Unavailable Alvarado Perry Attending Unavailable Alvarado Perry Admitting Unavailable ALVARADO PERRY Attending Unavailable ALVARADO PERRY Attending Unavailable AUBREY CYR Attending Unavailable ALVARADO PERRY Attending Unavailable ALVARADO PERRY Attending Unavailable ALVARADO PERRY Attending Unavailable VICKY, ALVARADO Attending Unavailable VICKY, ALVARADO Attending Unavailable VICKY, ALVARADO Attending Unavailable VICKY, ALVARADO Attending Unavailable AUBREY CYR Attending Unavailable AUBREY CYR Attending Unavailable ALVARADO PERRY Attending Unavailable Mrina Bennett MD Primary Care Provider [phone] MIRNA BENNETT Primary Care Unavailable GRADY HENSLEY Attending Unavailable MIRNA BENNETT Primary Care Unavailable DONNA TARANGO Attending Unavailable MIRNA BENNETT Primary Care Unavailable SWAPNA TAYLOR Attending Unavailable Allergies Allergy Classification Reported Allergen(s) Allergy Type Date of Onset Reaction(s) Facility (2 sources) Amoxicillin-Pot Clavulanate Propensity to adverse reactions to drug 11-17-19 17 Other (See Comments) [employer] Work Phone: (3 sources) Bismuth-Containin g Compounds Propensity to adverse reactions to drug 03-24-19 16 [facility] Work Phone: (1 source) bismuth subsalicylate Drug Allergy 10-10-19 18 [facility] Repository (5 sources) bismuth subsalicylate Drug Allergy 12-03-19 21 hives, Other (See Comments) [facility] (4 sources) bismuth subsalicylate Drug Allergy 12-03-19 21 [facility] Work Phone: (4 sources) Bismuth-Containin g Compounds Drug Intolerance 03-24-[address] [facility] (7 sources) bismuth subcarbonate; Translations: [BISMUTH SUBCARBONATE] Drug Allergy 08-16-19 17 [facility] Repository (1 source) bismuth subsalicylate Drug Allergy 04-12-19 23 [facility] Repository Medications Current Medications Medication Drug Class(es) Dates Sig (Normalized) Sig (Original) [id number] 200 actuat albuterol 0.09 mg/actuat metered dose inhaler (4 sources) beta2-Adrenergic Agonist Start: 03-04-2021 take 2 puff(s) by inhalation every four hours as needed for wheezing albuterol (PROVENTIL HFA;VENTOLIN HFA) 90 mcg/actuation inhaler Indications: Upper respiratory tract infection, unspecified type , GRANDA (dyspnea on exertion) Inhale 2 puffs every 4 (four) hours as needed for wheezing. 18 g 03/04/2021 Active amoxicillin 500 mg oral capsule (1 source) [...] mouth daily 30 tablet 3 12/17/2019 Active cyclobenzaprine hydrochloride 10 mg oral tablet (4 sources) Muscle Relaxant Start: 12-14-2021 take 1 tablet by mouth twice daily as needed for muscle spasms cyclobenzaprine (FLEXERIL) 10 mg tablet Take 1 tablet (10 mg total) by mouth 2 (two) times a day as needed for muscle spasms. 10 tablet 12/14/2021 Active 21 day ethinyl estradiol 0.220027 mg/hr / etonogestrel 0.005 mg/hr vaginal system (11 sources) Progestin, Estrogen Start: 10-20-2023 End: 11-17-2023 etonogestrel-ethinyl estradiol (Nuvaring) 0.12-0.015 MG/24HR vaginal ring Indications: 6 weeks follow-up , Encounter for initial prescription of vaginal ring hormonal contraceptive Insert 1 Ring into the vagina every 28 (twenty-eight) days for 28 days Insert vaginal ring for 3 weeks, then remove for 1 week. 1 each 10/20/2023 11/17/2023 Active Start: 06-13-2018 NUVARING 0.12- 0.015 MG/24HR vaginal ring End: 07-11-2023 etonogestreL-ethinyl estradi oL (NUVARING) 0.12-0.015 mg/24 hr vaginal ring Insert 1 each into the vagina every 28 days. Insert vaginally and leave in place for 3 consecutive weeks, then remove for 1 week. 07/11/2023 Discontinued () NuvaRing Active fluocinonide 0.5 mg/ml topical cream (2 sources) Corticosteroid Start: 07-24-2019 fluocinonide (LIDEX) 0.05 % cream Apply topically 2 times daily. 60 g 1 07/24/2019 Active FLUoxetine 10 mg oral capsule (4 sources) Serotonin Reuptake Inhibitor take 1 capsule by mouth in the morning FLUoxetine (PROzac) 10 mg capsule Take 1 capsule (10 mg total) by mouth in the morning. Active hydrocortisone 10 mg/ml / neomycin 3.5 mg/ml / polymyxin b 81131 unt/ml otic suspension (1 source) Aminoglycoside Antibacterial, Polymyxin-class Antibacterial, Corticosteroid Start: 04-12-2022 Xrgtoaei-Doqfzggpi-GD 3.5-04537-1 3 drops left ear Three times a day for 7 days Mar, Active methylPREDNISolone 4 mg oral tablet (1 [...] Start: 11-01-2017 take 1 capsule by [facility] once daily omeprazole (PRILOSEC) 40 MG delayed release capsule TAKE 1 CAPSULE BY MOUTH DAILY 30 capsule 1 11/01/2017 Active Phentermine (1 source) Sympathomimetic Amine Anorectic Adipex-P Active PNV no.95/ferrous fum/folic ac ( ORAL) (4 sources) PNV no.95/ferrou s fum/folic ac ( ORAL) Take by mouth. Active predniSONE 20 mg oral tablet (4 sources) Start: 022 take 2 tablets by mouth in the morning predniSONE (DELTASONE) 20 mg tablet Take 2 tablets (40 mg total) by mouth in the morning. 10 tablet 12/14/2021 Active Vit-Fe Fumarate-FA ( Plus/Iron) 27-1 MG [...] Drug Class(es) Dates Sig (Normalized) Sig (Original) ibuprofen 800 mg oral tablet (5 sources) Nonsteroidal Anti-inflammatory Drug Start: 12-14-2021 End: 07-11-2023 take 1 tablet by mouth every eight hours as needed for pain ibuprofen (MOTRIN) 800 mg tablet Take 1 tablet (800 mg total) by mouth every 8 (eight) hours as needed for pain. 21 tablet 12/14/2021 07/11/2023 Discontinued () Start: 07-03-2018 take 1 tablet by rey th three times daily as needed ibuprofen (ADVIL;MOTRIN) 800 MG tablet Take 800 mg by mouth 3 times daily as needed 0 07/03/2018 Active ioversol (OPTIRAY) 74 % injection 100 mL (1 source) Start: 02-12-2022 End: 02-12-2022 ioversol (OPTIRAY) 74 % injection 100 mL labetalol hydrochloride 100 mg oral tablet (2 sources) beta-Adrenergic Jennifer Start: 08-30-2023 End: 10-20-2023 take 1 tablet by mouth in the morning labetalol (Normodyne) 100 MG tablet Indications: Hypertension during in third trimester, unspecified hypertension in type Take 1 tablet (100 mg) by mouth in the morning and 1 tablet (100 mg) before bedtime. 60 tablet 11 08/30/2023 10/20/2023 Discontinued (Other) promethazine hydrochloride 25 mg oral tablet (4 sources) Phenothiazine Start: 01-25-2022 End: 02-14-2022 take 1 tablet by mouth four times daily as needed for nausea promethazine (PHENERGAN) 25 MG tablet Take 1 tablet by mouth 4 times daily as needed for Nausea 40 tablet 1 01/25/2022 02/14/2022 Phenergan Active Problems Active Problems Problem Classification Problem Date Documented Date Episodic/Chronic Abdominal pain (3 sources) Right upper quadrant pain; Translations: [Abdominal pain] Onset: 04-10-2024 Episodic Allergic reactions (3 sources) Atopic dermatitis; Translations: [Intrinsic (allergic) eczema] Onset: 07-24-2019 07-24-2019 Chronic Anxiety disorders (3 sources) Mixed anxiety and depressive disorder; Translations: [Other specified anxiety disorders] Onset: 05-26-2015 05-26-2015 Chronic E Codes: Fall (2 sources) Fall Onset: 04-10-2024 Esophageal disorders (3 sources) Gastroesophageal reflux disease; Translations: [Gastro-esophageal reflux disease without esophagitis] Onset: 04-27-2016 04-27-2016 Chronic Essential hypertension (4 sources) Hypertensive disorder; Translations: [Essential (primary) hypertension] Onset: 07-11-2023 07-11-2023 Chronic Gastritis and duodenitis (1 source) Acute gastritis without bleeding; Translations: [Acute gastritis without bleeding] Onset: 04-10-2024 Episodic Hypertension complicating ; childbirth and the puerperium (1 source) Hypertension complicating ; Translations: [Unspecified maternal hypertension, third trimester] 08-10-2023 Chronic Immunizations and screening for infectious disease (7 sources) Encounter for screening for human papillomavirus (HPV); Translations: [Contact with and (suspected) exposure to other viral communicable diseases] Onset: 08-13-2021 Resolved: 11-11-2021 Episodic Joint disorders and dislocations; trauma-related (4 sources) Chondromalacia of patella; Translations: [Chondromalacia patellae, [...] , unspecified trimester] Onset: 07-11-2023 Chronic Other complications of (5 sources) Maternal obesity complicating , childbirth and the puerperium, antepartum; Translations: [Obesity complicating , third trimester] Onset: 07-11-2023 07-11-2023 Chronic Other connective tissue disease (1 [...] UNS ASPHYX INIT] Onset: 06-04-2021 Episodic Other injuries and conditions due to external causes (1 source) Unspecified injury of right elbow, initial encounter; Translations: [Unspecified injury of right elbow, initial encounter] Onset: 01-28-2024 Episodic Other lower respiratory disease (1 source) Dyspnea, unspecified; Translations: [DYSPNEA UNSPECIFIED] Onset: 06-09-2021 Episodic Other non-traumatic joint disorders (1 source) Pain in right elbow; Translations: [Pain in right elbow] Onset: 04-10-2024 Episodic Other non-traumatic joint disorders (1 source) Pain in right wrist; Translations: [Pain in right wrist] Onset: 04-10-2024 Episodic Other non-traumatic joint disorders (1 source) Pain in elbow Onset: 01-28-2024 Episodic Other nutritional; endocrine; and metabolic disorders [...] initial encounter] Onset: 02-12-2022 Episodic Substance-related disorders (5 sources) Nicotine dependence, cigarettes, uncomplicated; Translations: [Smoker] Onset: 06-09-2021 08-16-2022 Chronic Thyroid disorders (4 sources) Goiter; Translations: [Nontoxic goiter, unspecified] Onset: 07-11-2023 07-11-2023 Chronic Unclassified (1 source) COUGH, UNSPECIFIED; Translations: [...] (1 source) left club foot Onset: 07-11-2023 Unclassified (1 source) Rt elbow pain Onset: 01-28-2024 Past or Other Problems Problem Classification Problem Date Documented Da te Episodic/Chronic Contraceptive and procreative management (2 sources) Patient encounter status; Translations: [Encounter for initial prescription of vaginal ring hormonal contraceptive] 10-20-2023 Episodic Esophageal disorders (3 sources) Chalasia of lower esophageal sphincter; 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] Onset: 02-29-2016 12-01-2016 Episodic Nausea and vomiting (3 sources) Nausea and vomiting; Translations: [Nausea with vomiting, unspecified] Onset: 10-13-2016 10-13-2016 Episodic Other and unspecified benign neoplasm (3 sources) Benign neoplastic disease; Translations: [Melanocytic nevi, unspecified] Onset: 05-26-2015 05-26-2015 Episodic Other complications of ; puerperium affecting management of mother (5 sources) Disorder of structure; Translations: [Club foot of fetus affecting antepartum care of mother, single or unspecified fetus] Onset: 07-11-2023 07-11-2023 Episodic Other complications of (5 sources) Abnormal placenta affecting management of mother; Translations: [Other malformation of placenta, unspecified trimester] Onset: 07-11-2023 07-11-2023 Episodic Other connective tissue disease (1 source) [...] joint, lower leg] Onset: 05-26-2015 05-26-2015 Episodic Other and delivery including normal (4 sources) Second trimester ; Translations: [Encounter for supervision of normal , unspecified, second trimester] 04-14-2023 Episodic Residual codes; unclassified (1 source) Gestation period, 29 weeks; Translations: [29 weeks gestation of ] 07-11-2023 Episodic Residual codes; unclassified (1 source) Gestation period, 33 weeks; Translations: [33 weeks gestation of ] 08-10-2023 Episodic Unclassified (2 sources) Patient encounter status; Translations: [Visit for gynecologic examination] Onset: 05-26-2015 Resolved: 11-24-2017 11-24-2017 Viral infection (3 sources) Plane wart; Translations: [Other viral warts] Onset: 05-26-2015 05-26-2015 Episodic Viral infection (1 source) COVID-19 Onset: 11-11-2021 Resolved: 11-11-2021 NEGATED: Highlighted row has been ruled out!Unclassified (1 source) No known active problems 07-09-2017 Results Test Name Value Interpretation Reference Range Facility CBC AND AUTO DIFFon 04-10-19 25 ABSOLUTE BASOPHIL 0.0 X10E9/L Normal 0.0-0.2 [facility] Comment on above: Performed By: #### C MP, CBCA, 3040-3, 20577-9 #### [facility] ([id number]) [address] [address] ABSOLUTE NEUTROPHIL 15.2 X10E9/L High 1.5-6.6 [facility] Comment on above: Performed By: #### C MP, CBCA, 3040-3, #### [facility] ([id number]) [address] [address] Basophils/100 WBC (Bld) 0.3 % Normal [facility] Comment on above: Performed By: #### C MP, CBCA, 3040-3, #### [facility] ([id number]) [address] [address] Eosinophils (Bld) [#/Vol] 0.0 10*3/uL Normal 0.0-0.4 [facility] Comment on above: Performed By: #### C MP, CBCA, 3040-3, #### [facility] ([id number]) [address] [place] [address] Eosinophils/100 WBC (Bld) 0.2 % Normal [facility] Comment on above: Performed By: #### C MP, CBCA, 3040-3, 92772-1 #### [facility] ([id number]) [address] [place] [address] Erythrocyte distribution width (RBC) [Ratio] 14.9 % Normal 11.5-15.0 [facility] Comment on above: Performed By: #### C MP, CBCA, 3040-3, 37229-8 #### [facility] ([id number]) [address] [place] [address] Hematocrit (Bld) [Volume fraction] 42.7 % Normal 35-47 [facility] Comment on above: Performed By: #### C YURI, CBCA, 3039-04, #### [facility] ([id number]) [address] [place] [address] Hemoglobin (Bld) [Mass/Vol] 14.3 g/dL Normal 11.7-15.5 [facility] Comment on above: Performed By: #### C YURI, CBCA, 3039-04, #### [facility] ([id number]) [address] [address] Lymphocytes (Bld) [#/Vol] 0.6 10*3/uL Low 1.0-3.5 [facility] Comment on above: Performed By: #### C YURI, CBCA, 3039-04, #### [facility] ([id number]) [address] [place] [address] Lymphocytes/100 WBC (Bld) 3.7 % Normal [facility] Comment on above: Performed By: #### C YURI, CBCA, 3039-04, #### [facility] ([id number]) [address] [place] [address] MCH (RBC) [Entitic mass] 27.9 pg Normal 27-34 [facility] Comment on above: Performed By: #### C YURI, CBCA, 3039-04, #### [facility] ([id number]) [address] [place] [address] MCHC (RBC) [Mass/Vol] 33.4 g/dL Normal 32-36 [facility] Comment on above: Performed By: #### C MP, CBCA, 3039-04, #### [facility] ([id number]) [address] [place] [address] MCV (RBC) [Entitic vol] 84 fL Normal 80-100 [facility] Comment on above: Performed By: #### C MP, CBCA, 0-3, #### [facility] ([id number]) [address] [place] [address] Monocytes (Bld) [#/Vol] 0.6 10*3/uL Normal 0-0.9 [facility] Comment on above: Performed By: #### C MP, CBCA, 0-3, #### [facility] ([id number]) [address] [address] Monocytes/100 WBC (Bld) 3.5 % Normal [facility] Comment on above: Performed By: #### C MP, CBCA, 3, #### [facility] ([id number]) [address] [address] Neutrophils/100 WBC (Bld) 92.3 % Normal [facility] Comment on above: Performed By: #### C MP, CBCA, 3039-04, #### [facility] ([id number]) [address] [address] Platelet mean volume (Bld) [Entitic vol] 8.2 fL Normal 7-12 [facility] Comment on above: Performed By: #### C MP, CBCA, 3, #### [facility] ([id number]) [address] [address] Platelets (Bld) [#/Vol] 368 10*3/uL Normal 150-450 [facility] Comment on above: Performed By: #### C MP, CBCA, 0-3, #### [facility] ([id number]) [address] [address] RBC COUNT 5.11 X10E12/L Normal 3.80-5.20 [facility] Comment on above: Performed By: #### C MP, CBCA, 0-3, #### [facility] ([id number]) [address] [place] [address] WBC (Bld) [#/Vol] 16.4 10*3/uL High 4.0-11.0 [facility] Comment on above: Performed By: #### C ZAID WELCH, 0-3, #### [facility] ([id number]) [address] [place] [address] COMPREHENSIVE METABOLIC PANE All 04-10-2024 Albumin [Mass/Vol] 3.4 g/dL Normal 3.2-5.3 [facility] Comment on above: Performed By: #### C ZAID WELCH, 0-3, #### [facility] ([id number]) [address] [place] [address] ALP [Catalytic activity/Vol] 63 U/L Normal 39-130 [facility] Comment on above: Performed By: #### C ZAID WELCH, 3, #### [facility] ([id number]) [address] [place] [address] ALT [Catalytic activity/Vol] 17 U/L Normal 0-31 [facility] Comment on above: Performed By: #### C ZAID WELCH, 3, #### [facility] ([id number]) [address] [place] [address] Anion gap [Moles/Vol] 12 mmol/L Normal 5-15 [facility] Comment on above: Performed By: #### C ZAID WELCH, 03, #### [facility] ([id number]) [address] [place] [address] AST [Catalytic activity/Vol] 20 U/L Normal 0-41 [facility] Comment on above: Performed By: #### C YURI CBCA, 3040-3, #### [facility] ([id number]) [address] [place] [address] Bilirubin [Mass/Vol] 0.6 mg/dL Normal 0.3-1.2 [facility] Comment on above: Performed By: #### C ZAID WELCH, 3, #### [facility] ([id number]) [address] [place] [address] Calcium [Mass/Vol] 8.8 mg/dL Normal 8.5-10.5 [facility] Comment on above: Performed By: #### C ZAID WELCH, 3, #### [facility] ([id number]) [address] [place] [address] Chloride [Moles/Vol] 104 mmol/L Normal 98-109 [facility] Comment on above: Performed By: #### C ZAID WELCH, 3, #### [facility] ([id number]) [address] [address] CO2 [Moles/Vol] 23 mmol/L Normal 22-32 [facility] Comment on above: Performed By: #### C ZAID WELCH, 3039-04, #### [facility] ([id number]) [address] [address] Creatinine [Mass/Vol] 0.76 mg/dL Normal 0.40-1.00 [facility] Comment on above: Result Comment: METH OD TRACEABLE TO IDMS STANDARD Performed By: #### C ZAID WELCH, 3, #### [facility] ([id number]) [address] [address] eGFR (CKD-EPI) NON-RACE DEPENDENT >90 Normal >59 [facility] Comment on above: Result Comment: Reported eGFR is based on the CKD-EPI 2020 equation that does not use a race coefficient. Performed By: #### C ZAID WELCH, 3, #### [facility] ([id number]) [address] [place] [address] Glucose [Mass/Vol] 124 mg/dL High 65-99 [facility] Comment on above: Performed By: #### C ZAID WELCH, 0-3, 77343-6 #### [facility] ([id number]) [address] [place] [address] Potassium [Moles/Vol] 4.0 mmol/L Normal 3.5-5.0 [facility] Comment on above: Performed By: #### C MP, CBCA, 3040-3, 72443-0 #### [facility] ([id number]) [address] [address] Protein [Mass/Vol] 7.5 g/dL Normal 6.0-8.0 [facility] Comment on above: Performed By: #### C MP, CBCA, 3040-3, 23269-8 #### [facility] ([id number]) [address] [place] [address] Sodium [Moles/Vol] 139 mmol/L Normal 134-146 [facility] Comment on above: Performed By: #### C MP, CBCA, 3040-3, 48382-5 #### [facility] ([id number]) [address] [place] [address] Urea nitrogen [Mass/Vol] 11 mg/dL Normal 5-23 [facility] Comment on above: Performed By: #### C MP, CBCA, 3040-3, 04210-3 #### [facility] ([id number]) [address] [place] [address] CT ABDOMEN AND PELVIS WO CON Ton 04-10-2024 CT ABDOMEN AND PELVIS WO CONT CT ABDOMEN AND PELVIS WO CONT CT ABDOMEN AND PELVIS WO CONT 04/10/2024 10:04 PM INDICATION: Abdominal pain, acute, nonlocalized COMPARISON: 04/26/2019 TECHNIQUE: Noncontrast CT images of the abdomen and pelvis were obtained. All CT scans at this facility use dose modulation, iterative reconstruction, and/or weight based dosing when appropriate to reduce radiation dose to as low as reasonably achievable. FINDINGS: LOWER THORAX: Calcified nodule of right lung base. LIVER: Unremarkable, without focal lesion. BILIARY SYSTEM: No biliary ductal dilatation. SPLEEN: Nonenlarged. PANCREAS: Unremarkable, no focal lesion or inflammatory change. ADRENAL GLANDS: Unremarkable. KIDNEYS/URETERS: No hydronephrosis. No focal renal lesion. No renal stones present. No ureteral dilatation. URINARY BLADDER: Prominence of anterior bladder, likely relate to urachal remnant. STOMACH/BOWEL: Nondilated. No areas of thickening or inflammatory change. REPRODUCTIVE: Vaginal ring device in place. PERITONEUM: No free intraperitoneal air. No ascites. LYMPH NODES: No lymphadenopathy. VASCULATURE: No abdominal aortic aneurysm. ABDOMINAL WALL: Unremarkable. OSSEOUS STRUCTURES: No suspicious osseous lesions. IMPRESSION: No definite acute process within the abdomen or pelvis. Finalized by Curly Rocha DO on 04/10/2024 10:28 PM Normal [facility] HCG ( test) Ql (U)o n 04-10-2024 Beta HCG ( test) Ql (U) Negative Normal NEG [facility] Comment on above: Performed By: #### 2 106-3 #### [facility] ([id number]) [address] [place] [address] LIPASEon 04-10-2024 Lipase [Catalytic activity/Vol] 29 U/L Normal 17-40 [facility] Comment on above: Performed By: #### C ZAID WELCH, 3040-3, 23973-6 #### [facility] ([id number]) [address] [place] [address] MAGNESIUMon 04-10-2024 Magnesium [Mass/Vol] 1.8 mg/dL Normal 1.8-2.6 [facility] Comment on above: Performed By: #### C ZAID WELCH, 3040-3, 37754-1 #### [facility] ([id number]) [address] [place] [address]71 URN MACROSCOPIC NURon 2024 ER EXTRA URINES ER EXTRA URINE ORDER IN PROCESS Normal [facility] Comment on above: Performed By: #### N UM #### [facility] ([id number]) [address] [place] [address] XR ELBOW RT MIN 3 VWSon - XR ELBOW RT MIN 3 VWS XR ELBOW RT MIN 3 VWS 3 VIEWS RIGHT ELBOW HISTORY: Fall, pain COMPARISON: 01/28/2024 IMPRESSION: * No acute fracture or malalignment in the right elbow. * No right elbow joint effusion. Finalized by Ana Narvaez MD on 04/10/2024 12:35 PM Normal [facility] XR WRIST RT MIN 3 VWSon 02 XR WRIST RT MIN 3 VWS XR WRIST RT MIN 3 VWS History: Fall. Right wrist pain Exam/Technique: AP, lateral, oblique views of the wrist Comparison: None Available Findings: There is no evidence of fracture, malalignment or an acute bony abnormality. The lateral view shows normal alignment of the distal radius, lunate and capitate. IMPRESSION: * No acute findings. Finalized by Dick Whitmore DO on 04/10/2024 12:36 PM Normal [facility] XR ELBOW RT MIN 3 VWSon 12-31 XR ELBOW RT MIN 3 VWS XR ELBOW RT MIN 3 VWS HISTORY: A 28-year-old female with the history of the fall 3 days ago. Complaining of the right elbow pain. TECHNIQUE: Right elbow: 3 views COMPARISON: No relevant prior studies are available for comparison. FINDINGS: There is no evidence of fracture, dislocation or acute bony pathology. Bones and joints are intact. No abnormal fat pad sign is identified. IMPRESSION: * No evidence of fracture, joint effusion or acute bony pathology in the right elbow. Finalized by Rory Roldan MD on 01/28/2024 1:26 PM Normal [facility] All 09-10-2023 L Specimen: [id number] Received: 09/12/23 Status: SHWETA Shelton Num: [id number] Spec Type: Surgical Subm Dr: Alvarado Perry Tissues: A Placenta - 3rd Trimester (Greater than 28 weeks) (PLACENTA) Procedures: HE/5, Gross/Micro L5 Age/ Patient Sex Location Account Attending Physician Darrius Vergara 28/F LABELL [id number] Alvarado Perry SPEC NUM: [id number] RECD: 09/12/23 STATUS: SHWETA SHELTON NUM: [id number] CHERRI: 09/10/[address]: Alvarado Perry ENTERED: 09/12/23 [facility] DR: Brianna,Lab SPEC TYPE: Surgical DEPT: LATISHA [place] ORDERED: HE, Gross/Micro L5 ORDERED: HE, Gross/Micro L5 Pathological Diagnosis Placental removal, section delivery -Mature third trimester placenta with three-vessel cord, small for gestational age (404 gm, <10 percentile) -No evidence of acute chorioamnionitis, funisitis, or villitis -No features of maternal decidual vasculopathy -Incidental 1 large and still evolving intervillous Thrombo-hematoma (at least 2 cm) -Incidental 1 gross focus of placental disruption without associated PMN response -No other significant histopathological changes, except mild prominent amniotic epithelial cells at the surface Clinical Information 37w 3d, , HTN, intolerance of labor. Gross Description Received in formalin labeled with the patient's name, date of and placenta is a betancourt placental disc with attached membranes, and attached umbilical cord. The 25.4 x 1.2 cm, three-vessel, jerome umbilical cord inserts eccentrically into the chorionic plate, 1.3 cm from the placental disc margin. The cord has normal spiraling with no knots or lesions present. The marginally inserted, complete membranes are jerome, slippery and translucent, with the point of rupture 11.4 cm from the disc margin. Intramembranous blood vessels are absent. ---- Specimen: [id number] Received: 09/12/23 Status: SHWETA Shelton Num: [id number] Spec Type: Surgical Subm Dr: Alvarado Perry Tissues: A Placenta - 3rd Trimester (Greater than 28 weeks) (PLACENTA) Procedures: , Gross/Micro L5 ---- Patient: Darrius Vergara [id number] (Continued) ---- Specimen: [id number] Received: 09/12/23 (Continued) Gross Description (Continued) Signed (signature on file) Evon Young MD 09/15/23 1846 ---- Specimen: [id number] Received: 09/12/23 Status: SHWETA Shelton Num: [id number] Spec Type: Surgical Subm Dr: Alvarado Perry Tissues: A Placenta - 3rd Trimester (Greater than 28 weeks) (PLACENTA) Procedures: JACQUE/Kelley Slater/Emiliana Montiel ---- Patient: Darrius Vergara [id number] (Continued) ---- Specimen: [id number] Received: 09/12/23-8 (Continued) Gross Description (Continued) The chorionic plate is villalobos-blue with patent vessels that span out magistrally over the surface. The maternal surface has intact, lobulated cotyledons. There is a 6.3 x 1.5 cm hemorrhagic area of possible abruption along the maternal surface of the disc comprising of approximately 25% of the disc. Sectioning demonstrates a firm jerome-yellow nodule measuring 1.8 x 0.7 x 0.6 cm. The remaining parenchyma is pink-red and spongiform. The 14.4 x 14.1 x 3.4 cm placental disc, devoid of membranes and cord, has a trimmed weight of 404 grams. Summary of sections: A1: umbilical cord at end and membrane roll including possible site of rupture A2: umbilical cord at placental end and parenchyma adjacent to cord insertion site A3: random mid-zonal section A4: Possible site of abruption A5: Jerome-yellow nodule TW Microscopic Description Microscopic examinations are performed supporting the above interpretation CPT Codes 60565 ---- ---- Specimen: [id number] Received: 09/12/23-1258 Status: SHWETA Shelton Num: [id number] Spec Type: Surgical Subm Dr: Alvarado Perry Tissues: A Placenta - 3rd Trimester (Greater than 28 weeks) (PLACENTA) Procedures: HE/5, Gross/Micro L5 ---- Patient: Darrius Vergara [id number] (Continued) (more content not included)... Normal [facility] Ultrasound officeon 06-17-19 Radiology Study observation (narrative) [facility] Radiology Study observation (narrative) [facility] Radiology Study observation (narrative) [facility] Radiology Study observation (narrative) [facility] Radiology Study observation (narrative) [facility] No Panel Informationon 06-13 SEE SCANNED REPORT MANUAL LY TRANSCRIBED RESULTS [facility] Ultrasound officeon 05-26-19 24 SEE SCANNED REPORT MANUAL LY TRANSCRIBED RESULTS [facility] Ultrasound officeon 05-12-19 24 SEE SCANNED REPORT MANUAL LY TRANSCRIBED RESULTS [facility] Chlamydia/GC by PCR Júnior Sw abon 04-14-2023 Chlamydia Dna(Pcr) Negative [facility] Gonorrhoeae Dna(Pcr) Negative [facility] Urinalysis macro (dipstick) panel (U)on 04-14-2023 Bilirubin, UA Negative Negative - 4(70) +++ mg/dL [facility] Blood, UA Negative Negative - 50 Bill/mcL [facility] Clarity, UA Clear [facility] re Color, UA Yellow [facility] Glucose, UA Negative Negative - 1999(110) ++++ mg/dL [facility] Interpretation and review of laboratory results Abnormal [facility] re Ketones, UA Positive Negative - 160(16) ++++ mg/dL [facility] Comment on above: 40 mg Leukocytes, UA Negative Negative - 500+++ Simon/mcL [facility] Nitrite, UA Negative Negative - Positive [facility] pH, UA 7.0 5 - 9 [facility] Protein, UA Trace Negative - 1999(20) ++++ mg/dL [facility] Spec Grav, UA 1.025 1 - 1.03 [facility] Urobilinogen, UA 0.2 0.2 - 12 mg/dL [facility] Unlisted Genetic Teston 02-28 SEE SCANNED REPORT MANUAL LY TRANSCRIBED RESULTS [facility] HIV 1&2 AB/AG Screen (P24 AG )on 03-02-2023 HIV 1&2 AB/AG Non-Reactive [facility] Hepatitis B surface antigeno n 03-02-2023 Hepatitis B Surface Antigen Negative [facility] No Panel Informationon 03-02 [facility] Rubella IGG immune statuson 03-02-2023 Rubella immune IgG 5.50 [facility] Syphilis Total(Unknown Syphi lis Status)on 03-02-[address]23 Syph[address] Non-Re[address] [facility] No Panel Informationon 03-01 [facility] TSHon 03-01-2023 Thyroid Stimulating (3Rd Generation) Hormone/ Tsh 1.055 [facility] Type and screenon 03-01-2023 Abo/Rh(D) Positive [facility] Ultrasound officeon 02-18-20 SEE SCANNED REPORT MANUAL LY TRANSCRIBED RESULTS [facility] IR INJ ARTHROGRAM HIP LEFTon 02-13-2022 IR INJ ARTHROGRAM HIP LEFT EXAMINATION: FLUOROSCOPIC GUIDED LEFT HIP ARTHROGRAM, 02/12/2022 8:45 am COMPARISON: None. HISTORY: ORDERING SYSTEM PROVIDED HISTORY: Tear of left acetabular labrum, initial encounter TECHNOLOGIST PROVIDED HISTORY: Is the patient ?->No FLUOROSCOPY DOSE AND TYPE OR TIME AND EXPOSURES: 54 seconds; D AP 83 cGy cm2 PROCEDURE: CONSTRUCTION PLANT OPERATOR: Gaudencio Chávez MD Informed consent [...] MD 02/12/22 Final result Normal [facility] IR INJ ARTHROGRAM HIP LEFTon 02-12-2022 Successful fluoroscopic-guided left hip arthrogram. Patient was transferred to MRI for further imaging. [facility] EXAMINATION: FLUOROSCOPIC GUIDED LEFT HIP ARTHROGRAM, 02/12/2022 8:45 am COMPARISON: None. HISTORY: ORDERING SYSTEM PROVIDED HISTORY: Tear of left acetabular labrum, initial encounter TECHNOLOGIST PROVIDED HISTORY: Is the patient ?->No FLUOROSCOPY DOSE AND TYPE OR TIME AND EXPOSURES: 54 seconds; D AP 83 cGy cm2 PROCEDURE: CONSTRUCTION PLANT OPERATOR: Gaudencio Chávez MD Informed consent [...] is sent for subsequent MRI. EBL: None [facility] Gaudencio Chávez MD - 02/12/2022 EXAMINATION: FLUOROSCOPIC GUIDED LEFT HIP ARTHROGRAM, 02/12/2022 8:45 am COMPARISON: None. HISTORY: ORDERING SYSTEM PROVIDED HISTORY: Tear of left acetabular labrum, initial encounter TECHNOLOGIST PROVIDED HISTORY: Is the patient ?->No FLUOROSCOPY DOSE AND TYPE OR TIME AND EXPOSURES: 54 seconds; D AP 83 cGy cm2 PROCEDURE: CONSTRUCTION PLANT OPERATOR: Gaudencio Chávez MD Informed consent [...] was transferred to MRI for further imaging. [employer] Phone: Radiology Study observation (narrative) [employer] Phone: IR INJ ARTHROGRAM HIP LEFTOr dered By: Gaudencio Chávez on 02-12-2022 [employer] Phone: MRI HIP LEFT W CONTRASTon MRI [...] MD 02/12/22 Final result Normal [facility] SARS-CoV-2 (COVID-19) RNA NA A+probe Ql (Resp)on 11-11-2021 SARS-CoV-2 (COVID-19) RNA ANNABELLE+probe Ql (Unsp spec) Positive [employer] Other PAP ACOG PANEL 2: 21 to 29on 08-17-2021 . . Normal [facility] Comment on above: Performed By: #### [id number] #### [facility] [address] [place] [address] Dr. Cesar Young Age Gdln ACOG Testing 21- Normal [facility] Comment on above: Performed By: #### [id number] #### [facility] [address] [address] [address] Cesar Young DIAGNOSIS: Comment Normal [facility] Comment on above: Result Comment: NEGA TIVE FOR INTRAEPITHELIAL LESION OR MALIGNANCY. Performed By: #### [id number] #### [facility] [address] [address] [address] Cesar Young Methodology: Comment [facility] Comment on above: Result Comment: This liquid based ThinPrep(R) pap test was screened with the use of an image guided system. Performed By: #### 4 [id number] #### [facility] [address] [address] [address] Cesar Young Note: Comment Normal [facility] Comment on above: Result Comment: The Pap smear is a screening test designed to aid in the detection of premalignant and malignant conditions of the uterine cervix. It is not a diagnostic procedure and should not be used as the sole means of detecting cervical cancer. Both false-positive and false-negative reports do occur. . Performed By: #### 4 [id number] #### [facility] [address] [address] [address] Cesar Young Performed by: Comment Normal [facility] Comment on above: Result Comment: Linda Taveras, Hr Shared Services Consultant (ASCP) Performed By: #### 4 [id number] #### [facility] [address] [address] [address] Cesar Young Reflex Criteria: Comment Normal [facility] Comment on above: Result Comment: The HPV DNA reflex criteria were not met with this specimen result therefore, no HPV testing was performed. . Performed By: #### 4 [id number] #### [facility] [address] [address] [address] Cesar Yuong Specimen adequacy: Comment Normal [facility] Comment on above: Result Comment: Sati sfactory for evaluation. Endocervical and/or squamous metaplastic cells (endocervical component) are present. Performed By: #### 4 [id number] #### [facility] [address] [address] [address] Cesar Young XR hand LT min 3V*on 022 XR hand LT min 3V* [facility] [employer] Other XR hand LT min 3V* [facility] [employer] Other XR hand LT min 3V* [address] [place] [address] [employer] Other XR hand LT min 3V* [place] [address] [employer] Other XR hand LT min 3V* XRay Report [employer] Other XR hand LT min 3V* Signed [employer] Other XR hand LT min 3V* Patient: Nellie Chen MR#: [id number] [employer] Other XR hand LT min 3V* 0 [employer] Other XR hand LT min 3V* : 1995 Acct:[id number] [employer] Other XR hand LT min 3V* Age/Sex: 26 / F ADM Date: 08/17/21 [employer] Other XR hand LT min 3V* Loc: XDUCLY Room: Type: [facility] [employer] Other XR hand LT min 3V* Attending Dr: Julieth HERNANDEZ [employer] Other XR hand LT min 3V* Copies to: DAVID Salmeron [employer] Other XR hand LT min 3V* Ordering Provider: DAVID Salmeron [employer] Other XR hand LT min 3V* Date of Service: 08/17/21 [employer] Other XR hand LT min 3V* XR/XR hand LT min 3V*: Pain of left thumb [employer] Other XR hand LT min 3V* LEFT HAND - 4 views [employer] Other XR hand LT min 3V* CLINICAL DATA: Patie nt injured left hand yesterday and has bruising, pain and swelling over the [employer] Other XR hand LT min 3V* metacarpal phalangea l joint of the thumb and at the distal first metacarpal [employer] Other XR hand LT min 3V* COMPARISON: None [employer] Other XR hand LT min 3V* AP, lateral and oblique views were obtained along with a supplemental lateral view at the thumb. [employer] Other XR hand LT min 3V* There is no evidence of fracture or dislocation. There are no significant soft tissue [facility] [employer] Other XR hand LT min 3V* abnormalities. No rt [employer] Other XR hand LT min 3V* XR/XR hand LT min 3V* [employer] Other XR hand LT min 3V* IMPRESSION: [employer] Other XR hand LT min 3V* NO ACUTE BONY INJURY. [employer] Other XR hand LT min 3V* Impression dictated by: Ailin Borrego M.D.08/17/2021 2:53 PM [employer] Other XR hand LT min 3V* Dictation Location: [place] [address] [employer] Other XR hand LT min 3V* Transcribed By: GONZALO 08/17/21 [facility] [employer] Other XR hand LT min 3V* Dictated By: Ailin Borrego MD 08/17/21 [facility] [employer] Other XR hand LT min 3V* Signed By: [employer] Other XR hand LT min 3V* 08/17/[address] [place] [address] [employer] Other PREG HCG QUALon 06-04-2021 , QUAL Negative Normal NEGATIVE [facility] Comment on above: Performed By: #### P REG #### [facility] [address] [address] [address] Cesar Young Covid-19 PCR ([facility]on SARS-CoV-2 (COVID-19) RNA ANNABELLE+probe Ql (Unsp spec) Not detected Normal NOT DETECTED [facility] Comment on above: Result Comment: This test is not yet approved or cleared by the [place] FDA. When there are no FDA-approved or cleared tests available, and other criteria are met, FDA can make tests available under an emergency access mechanism called an Emergency Use Authorization (EUA). The EUA for this test is supported by the [place] of Health and Human Service's (HHS's) declaration [...] consistent with SARS-CoV-2. Performed By: #### C [facility] #### [facility] [address] [address] [address] Cesar Young [id number] 03-28-2021 SARS-CoV-2 (COVID-19) RNA ANNABELLE+probe Ql (Unsp spec) Normal [facility] Comment on above: Performed By: #### C OVID #### [address] [place] [address] [employer] Cover Machine Operator: Vijay Tinsley MD SARS-CoV-2 (COVID-19) RNA ANNABELLE+probe Ql (Unsp spec) [facility]ed [facility] Comment on above: Result Comment: The specimen is POSITIVE for SARS-Cov-2, the novel coronavirus associated with COVID-19. Júnior SARS-CoV-2 for use on the Júnior [employer]/8800 [employer] is a real-time RT-PCR test intended for the qualitative detection of nucleic acids from SARS-CoV-2 in clinician-collected nasal, nasopharyngeal, and oropharyngeal swab specimens from individuals who meet COVID-19 clinical and/or epidemiological criteria. Júnior SARS-CoV-2 is for use only under Emergency [...] this assay. Fact sheet for Healthcare Providers: https://www.fda.gov/media/145848/download Fact sheet for Patients: https://www.fda.gov/media/332532/download METHODOLOGY: RT-PCR Results reported to the appropriate Health Department Performed By: #### C OVID #### [email or web address] [address] [place] [address] [id number] [employer] Cover Machine Operator: Vijay Tinsley MD [id number] 03-27-2021 SARS-CoV-2 (COVID-19) RNA ANNABELLE+probe Ql (Unsp spec) NOT REPORTED Normal [facility] Comment on above: Performed By: #### C OVID #### [email or web address] [facility] [place], [place] [id number] [employer] Cover Machine Operator: Vijay Tinsley MD CBC Auto Differentialon 04-01 Basophils (Bld) [#/Vol] 0.10 10*3/uL [employer] Phone: Basophils/100 WBC (Bld) 1 % 0 - 2 % [employer] Phone: Differential Type NOT REPORTED [employer] Phone: Eosinophils (Bld) [#/Vol] 0.20 10*3/uL [employer] Phone: Eosinophils/100 WBC (Bld) 2 % 0 - 4 % [employer] Phone: Erythrocyte distribution width (RBC) [Ratio] 13.9 % 11.5 - 14.9 % [employer] Phone: Hematocrit (Bld) [Volume fraction] 43.1 % 36 - 46 % [employer] Phone: Hemoglobin (Bld) [Mass/Vol] 14.2 g/dL 12 - 16 g/dL [employer] Phone: Lymphocytes (Bld) [#/Vol] 2.10 10*3/uL [employer] Work Phone: Lymphocytes/100 WBC (Bld) 25 % 24 - 44 % [employer] Phone: MCH (RBC) [Entitic mass] 28.7 pg 26 - 34 pg [employer] Work Phone: MCHC (RBC) [Mass/Vol] 33.0 g/dL 31 - 37 g/dL [employer] Phone: MCV (RBC) [Entitic vol] 87.2 fL 80 - 100 fL [employer] Phone: Monocytes (Bld) [#/Vol] 0.60 10*3/uL [employer] Phone: Monocytes/100 WBC (Bld) 7 % 1 - 7 % [employer] Work Phone: Platelet mean volume (Bld) [Entitic vol] 7.7 fL 6 - 12 fL [employer] Phone: Platelets (Bld) [#/Vol] 359 10*3/uL [employer] Phone: Platelets (Bld) [#/Vol] NOT REPORTED [employer] Phone: RBC (Bld) [#/Vol] 4.94 10*6/uL 4 - 5.2 m/uL [facility] [employer] Work Phone: RBC morphology finding Nom (Bld) NOT REPORTED [employer] Phone: Segmented neutrophils/100 WBC (Bld) 65 % 36 - 66 % [employer] Work Phone: Segs Absolute 5.40 [employer] Work Phone: WBC (Bld) [#/Vol] NOT REPORTED per 100 WBC [employer] Work Phone: WBC (Bld) [#/Vol] 8.4 10*3/uL [employer] Work Phone: WBC Morphology NOT REPORTED [employer] [facility] Work Phone: Comprehensive Metabolic Pane all 04-24-2020 Albumin [Mass/Vol] 3.9 g/dL 3.5 - 5.2 g/dL [employer] Work Phone: Albumin/Globulin [Mass ratio] NOT REPORTED [facility] Work Phone: ALP [Catalytic activity/Vol] 59 U/L 35 - 104 U/L [employer] Work Phone: ALT [Catalytic activity/Vol] 19 U/L 5 - 33 U/L [employer] Phone: Anion gap [Moles/Vol] 10 mmol/L 9 - 17 mmol/L [employer] Work Phone: AST [Catalytic activity/Vol] 15 U/L <32 [employer] Work Phone: Bilirubin Ql (U) <0.15 Low 0.3 - 1.2 mg/dL [employer] Phone: Bun/Cre Ratio NOT REPORTED [facility] Center[facility]es[facility] Digital[facility] ([employer])[facility] Work Phone: Calcium [Mass/Vol] 9.2 mg/dL 8.6 - 10. 4 mg/dL [employer] Work Phone: Chloride [Moles/Vol] 104 mmol/L 98 - 107 mmol/L [employer] Work Phone: CO2 [Moles/Vol] 25 mmol/L 20 - 31 mmol/L [employer] Work Phone: Creatinine [Mass/Vol] 0.68 mg/dL 0.5 - 0.9 mg/dL [employer] Phone: GFR >60 >60 mL/min [employer] Work Phone: GFR Non- >60 >60 mL/min [employer] Phone: GFR/1.73 sq M predicted among non-blacks MDRD (S/P/Bld) [Vol rate/Area] [employer] Phone: Comment on above: Average GFR for 20-2 9 years old: 116 mL/min/1.73sq m Chronic Kidney Disease: <60 mL/min/1.73sq m Kidney failure: <15 mL/min/1.73sq m eGFR calculated using average adult body mass. Additional eGFR calculator available at: http://www.[employer]/multiple_crcl_2012.htm GFR/1.73 sq M predicted among non-blacks MDRD (S/P/Bld) [Vol rate/Area] NOT REPORTED [employer] Phone: Glucose [Mass/Vol] 135 mg/dL High 70 - 99 mg/dL [employer] Phone: Interpretation and review of laboratory results Abnormal [employer] Phone: Potassium [Moles/Vol] 3.7 mmol/L 3.7 - 5.3 mmol/L [employer] Phone: Protein [Mass/Vol] 7.1 g/dL 6.4 - 8.3 g/dL [employer] Phone: Sodium [Moles/Vol] 139 mmol/L 135 - 144 mmol/L [employer] Phone: Urea nitrogen [Mass/Vol] 11 mg/dL 6 - 20 mg/dL [employer] Phone: Otheron 04-24-2020 Immature granulocytes (Bld) [#/Vol] NOT REPORTED 0 % [employer] Phone: US GALLBLADDER RUQon 021 Unremarkable right upper quadrant ultrasound. [employer] Phone: EXAMINATION: RIGHT UPPER QUADRANT ULTRASOUND 04/24/2020 [...] No evidence of right upper quadrant ascites. [employer] Phone: Erick, pn Incoming Radiant Results From [email or web address] - 04/24/2020 8:18 AM EST EXAMINATION: RIGHT [...] ascites. IMPRESSION: Unremarkable right upper quadrant ultrasound. [employer] Phone: Vital Signs Date Time Vital Sign Value Performing Clinician Facility 10-20-2023 11:51-0400 Body mass index (BMI) [Ratio] 43.55 kg/m2 [employer] Phone: [facility] 10-20-2023 11:51-0400 Body weight 101.15 kg [employer] Phone: [facility] 10-20-2023 11:51-0400 Diastolic blood pressure 70 mm[Hg] [employer] Phone: [facility] 10-20-2023 11:51-0400 Systolic blood pressure 116 mm[Hg] [employer] Phone: [facility] 08-10-2023 08:29-0400 Body mass index (BMI) [Ratio] 47.65 kg/m2 Perry Ybarra MD Work Phone: [facility] 08-10-2023 08:29-0400 Body weight 110.68 kg Perry Ybarra MD Work Phone: [facility] 08-10-2023 08:29-0400 Diastolic blood pressure 80 mm[Hg] Perry Ybarra MD Work Phone: [facility] 08-10-2023 08:29-0400 Heart rate 83 /min Perry Ybarra MD Work Phone: [facility] 08-10-2023 08:29-0400 Systolic blood pressure 121 mm[Hg] Perry Ybarra MD Work Phone: [facility] 07-11-2023 14:01-0400 Body mass index (BMI) [Ratio] 47.07 kg/m2 Leo Johnson MD Work Phone: [facility] 07-11-2023 14:01-0400 Body weight 109.32 kg Leo Johnson MD Work Phone: [facility] 07-11-2023 14:01-0400 Diastolic blood pressure 76 mm[Hg] Leo Johnson MD Work Phone: [facility] 07-11-2023 14:01-0400 Systolic blood pressure 114 mm[Hg] Leo Jonhson MD Work Phone: [facility] 04-14-2023 10:54-0500 Body mass index (BMI) [Ratio] 44.14 kg/m2 Alvarado Vicky DO Work Phone: [facility] 04-14-2023 10:54-0500 Body weight 102.51 kg Alvarado Vicky DO Work Phone: [facility] 04-14-2023 10:54-0500 Diastolic blood pressure 70 mm[Hg] Alvarado Vicky DO Work Phone: [facility] 04-14-2023 10:54-0500 Systolic blood pressure 120 mm[Hg] Alvarado Perry DO Work Phone: [facility] 04-12-2022 10:30-0500 Body height 152.4 cm Julieth Winkler Other [employer] Other 04-12-2022 10:30-0500 Body mass index (BMI) [Ratio] 41.59 kg/m2 Julieth Cathi Other [employer] Other 04-12-2022 10:30-0500 Body temperature 98.5 [degF] Julieth Cathi Other [employer] Other 04-12-2022 10:30-0500 Body weight 96.62 kg Julieth Cathi Other [employer] Other 04-12-2022 10:30-0500 Diastolic blood pressure 87 mm[Hg] Julieth Cathi Other [employer] Other 04-12-2022 10:30-0500 Respiratory rate 18 /min Julieth Cathi Other [employer] Other 04-12-2022 10:30-0500 SaO2% (BldA) [Mass fraction] 98 % Julieth Cathi Other [employer] Other 04-12-2022 10:30-0500 Systolic blood pressure 141 mm[Hg] Julieth Cathi Other [employer] Other 11-30-2021 17:00-0400 Body height 152.4 cm Jammie Terry Other [employer] Other 11-30-2021 17:00-0400 Body mass index (BMI) [Ratio] 39.06 kg/m2 Jammie Terry Other [employer] Other 11-30-2021 17:00-0400 Body temperature 97.6 [degF] Jammie Terry Other [employer] Other 11-30-2021 17:00-0400 Body weight 90.72 kg Jammie Terry Other [employer] Other 11-30-2021 17:00-0400 Diastolic blood pressure 84 mm[Hg] Jammie Terry Other [employer] Other 11-30-2021 17:00-0400 Respiratory rate 18 /min Jammie Terry Other [employer] Other 11-30-2021 17:00-0400 SaO2% (BldA) [Mass fraction] 99 % Jammie Terry Other [employer] Other 11-30-2021 17:00-0400 Systolic blood pressure 132 mm[Hg] Jammie Terry Other [employer] Other 11-11-2021 10:30-0400 Body height 152.4 cm Julieth Agarwalmond Other [employer] Other 11-11-2021 10:30-0400 Body mass index (BMI) [Ratio] 37.1 kg/m2 Julieth Cathi Other [employer] Other 11-11-2021 10:30-0400 Body temperature 98.1 [degF] Julieth Winkler Other [employer] Other 11-11-2021 10:30-0400 Body weight 86.18 kg Julieth Agarwalmond Other [employer] Other 11-11-2021 10:30-0400 Respiratory rate 18 /min Julieth Cathi Other [employer] Other 11-11-2021 10:30-0400 SaO2% (BldA) [Mass fraction] 99 % Julieth Cathi Other [employer] Other 08-17-2021 14:55-0400 Body height 152.4 cm Julieth Cathi Other [employer] Other 08-17-2021 14:55-0400 Body mass index (BMI) [Ratio] 39.84 kg/m2 Julieth Cathi Other [employer] Other 08-17-2021 14:55-0400 Body temperature 97.8 [degF] Julieth Cathi Other [employer] Other 08-17-2021 14:55-0400 Body weight 92.53 kg Julieth Cathi Other [employer] Other 08-17-2021 14:55-0400 Diastolic blood pressure 74 mm[Hg] Julieth Cathi Other [employer] Other 08-17-2021 14:55-0400 Respiratory rate 18 /min Julieth Cathi Other [employer] Other 08-17-2021 14:55-0400 SaO2% (BldA) [Mass fraction] 99 % Julieth Cathi Other [employer] [facility] [employer] Other 08-17-2021 14:55-0400 Systolic blood pressure 134 mm[Hg] Julieth Winkler Other [employer] Other Encounters Encounter Date Encounter Type Care Provider Facility Start: 04-10-2024 End: 04-10-2024 Emergency department patient visit MIRNA BENNETT [facility] Start: 04-10-2024 End: 04-10-2024 Emergency department patient visit MIRNA BENNETT [facility] Start: 01-28-2024 End: 01-28-2024 Emergency department patient visit MIRNA BENNETT [facility] Start: 10-20-2023 End: 10-20-2023 care visit Alvarado Costao DO Work Phone: [facility] Comment on above: 6 weeks f ollow-up; Encounter for initial prescription of vaginal ring hormonal contraceptive Start: 10-20-2023 End: 10-20-2023 ambulatory ALVARADO VICKY Not Available Start: 09-27-2023 End: 09-27-2023 ambulatory AUBREY CYR Not Available Start: 09-15-2023 End: 09-15-2023 ambulatory AUBREY CYR Not Available Start: 09-10-2023 End: 09-10-2023 ambulatory MD Mirna Bennett Work Phone: [facility] Work Phone: Start: 09-10-2023 End: 09-10-2023 Departed Referred MD Mirna Bennett Work Phone: [facility] Start: 09-06-2023 End: 09-06-2023 ambulatory ALVARADO VICKY Not Available Start: 08-30-2023 End: 08-30-2023 ambulatory ALVARADO VICKY Not Available Start: 08-17-2023 End: 08-17-2023 ambulatory ALVARADO VICKY Not Available Start: 08-10-2023 End: 08-10-2023 Office outpatient visit 25 minutes Perry Ybarra MD Work Phone: [facility] Comment on above: 33 weeks gestation o f (Primary Dx); Club foot of fetus affecting antepartum care of mother, single or unspecified fetus; Obesity affecting in third trimester, unspecified obesity type; Marginal insertion of umbilical cord affecting management of mother; Hypertension affecting in third trimester Start: 08-10-2023 End: 08-10-2023 ambulatory [facility] Start: 08-04-2023 End: 08-04-2023 ambulatory ALVARADO VCIKY Not Available Start: 07-19-2023 End: 07-19-2023 ambulatory ALVARADO VICKY Not Available Start: 07-12-2023 End: 07-12-2023 Telephone encounter Edith Galvez RN [facility] Start: 07-11-2023 End: 07-11-2023 Office consultation new/estab patient 60 min Leo Johnson MD Work Phone: [facility] Comment on above: 29 weeks gestation o f (Primary Dx); Club foot of fetus affecting antepartum care of mother, single or unspecified fetus; Obesity affecting in third trimester, unspecified obesity type; Marginal insertion of umbilical cord affecting management of mother; Enlarged thyroid gland; Hypertension, unspecified type Start: 07-11-2023 End: 07-11-2023 ambulatory [facility] Start: 07-07-2023 End: 07-07-2023 ambulatory ALVARADO VICKY Not Available Start: 06-17-2023 End: 06-17-2023 Chart abstracting Leo Johnson MD Work Phone: [facility] Start: 06-14-2023 End: 06-14-2023 ambulatory ALVARADO VICKY Not Available Start: 05-12-2023 End: 05-12-2023 ambulatory AUBREY CYR Not Available Start: 04-14-2023 End: 04-14-2023 Patient encounter procedure Alvarado Vicky DO Work Phone: [facility] Start: 04-14-2023 End: 04-14-2023 Periodic preventive med est patient 18-39 yrs Alvarado Vicky DO Work Phone: [facility] Comment on above: Well woman exam with routine gynecological exam; Exposure to STD; Encounter for anatomic survey; Need for maternal serum alpha-protein (MSAFP) screening; Second trimester Start: 04-14-2023 End: 04-14-2023 ambulatory ALVARADO VICKY Not Available Start: 03-17-2023 End: 03-17-2023 ambulatory ALVARADO VICKY Not Available Start: 02-17-2023 End: 02-17-2023 ambulatory ALVARADO VICKY Not Available Start: 04-12-2022 End: 04-12-2022 ambulatory Julieth Cathi Other [employer] Other Start: 04-12-2022 Office outpatient vi sit 15 minutes Julieth Cathi [facility] Start: 02-12-2022 End: 02-15-2022 ambulatory ELICIA [facility] Start: 02-12-2022 End: 02-14-2022 Subsequent hospital visit by physician Reinier Ir Nurse [facility] [place] [facility] Comment on above: Tear of left acetabu lar labrum, initial encounter Start: 11-30-2021 End: 11-30-2021 ambulatory Jammie Terry Other [employer] Other Start: 11-30-2021 Office outpatient vi sit 15 minutes Jammie Terry [facility] Start: 11-11-2021 End: 11-11-2021 ambulatory Julieth Cathi Other [employer] Other Start: 11-11-2021 Office outpatient vi sit 15 minutes Julieth Cathi [facility] Start: 08-17-2021 End: 08-17-2021 ambulatory Julieth Cathi Other [employer] Other Start: 08-17-2021 Office outpatient vi sit 15 minutes Julieth Cathi [facility] Start: 08-12-2021 End: 08-12-[address] ALVARADO PERRY Facility:[facility]1 Start: 06-04-2021 Encounter for preprocedural laboratory examination ANA S[facility] Start: 06-04-2021 End: 06-04-2021 ambulatory ANA [facility] Facility:[facility] Start: 06-02-2021 End: 06-03-2021 ambulatory ANA [facility] Facility:[facility] Start: 06-02-2021 End: 06-03-2021 Encounter for preprocedural laboratory examination ANA [facility] Facility:[facility] Start: 07-01-2020 End: 07-01-2020 Patient encounter procedure PHYSICIAN NO [facility] -Ultrasound [facility] [place] [facility] Start: 06-27-2020 End: 06-27-2020 Patient encounter procedure [facility]ICIAN [facility] Start: 04-24-2020 End: 04-24-2020 Subsequent hospital visit by physician Mirna [facility]ERN[facility] Comment on above: RUQ pain Start: 04-24-2020 End: 04-26-2020 Subsequent hospital visit by physician Reinier Ultrasound R[facility] [address] [place] [facility] Comment on above: RUQ pain Start: 05-26-2015 End: 11-24-[address] [facility] Procedures Date Procedure Procedure Detail Performing Clinician Start: 06-14-2023 US OFFICE Not In Sys tem Ref Prov Start: 05-26-2023 US OFFICE Not In Sys tem Ref Prov Start: 05-12-2023 US OFFICE Not In Sys tem Ref Prov Start: 04-14-2023 CHLAMYDIA/GC BY PCR JÚNIOR SWAB Not In System Ref Prov Start: 04-14-2023 Urnls dip stick/tabl et rgnt non-auto w/o micrscp Alvarado Perry DO Work Phone: Start: 03-02-2023 HIV 1&2 AB/AG SCREEN (P24 AG) Not In System Ref Prov Start: 03-02-2023 Iaad ia hepatitis b surface antigen Not In System Ref Prov Start: 03-02-2023 Syphilis test non-treponemal antibody qual Not In System Ref Prov Start: 03-01-2023 Antibody screen Foster Johnson MD Work Phone: Start: 03-01-2023 Assay of thyroid stimulating hormone tsh Not In System Ref Prov Start: 03-01-2023 TYPE AND SCREEN Not In System Ref Prov Start: 03-01-2023 UNLISTED GENETIC TEST N ot In System Ref Prov Start: 02-17-2023 US OFFICE Not In Sys tem Ref Prov Start: 02-12-2022 IR ARTHROGRAM HIP LEFT Elicia [...] Treatment Date Care Activity Detail Author Start: 08-09-2024 Adult BMI Screening Adult BMI Screen ing [facility] Start: 08-09-2024 Tobacco Screening Tobacco Screening [facility] Start: 07-10-2024 Adult BMI Screening Adult BMI Screen ing [facility] Start: 07-10-2024 Tobacco Screening Tobacco Screening [facility] Start: 04-17-2024 End: 04-17-2024 Patient encounter procedure 04/17/2024 11:00 AM EST Office Visit [facility] [address] [place] [id number] Alvarado Perry, DO [address] [place] [address] [facility] Start: 10-30-2023 Influenza vaccination Influenza Vacc ine [facility] Start: 08-10-2023 End: 08-10-2023 Patient encounter procedure [facility] Start: 08-09-2023 End: 08-09-2023 Patient encounter procedure [facility] Start: 07-11-2023 End: 07-11-2023 Patient encounter procedure [facility] Start: 04-14-2023 End: 05-13-2023 Alpha fetoprotein, maternal Alpha fetoprotein, maternal Lab Routine Need for maternal serum alpha-protein (MSAFP) screening Expected: 04/14/2023 (Approximate), Expires: 05/13/2023 [facility] Comment on above: Expected: 04/14/2023 (Approximate), Expires: 05/13/2023 Start: 04-14-2023 End: 04-14-2024 US for US OB ANATOMY SINGLE W US OB CERVICAL LENGTH Imaging Routine Encounter for anatomic survey Expected: 04/14/2023 (Approximate), Expires: 04/14/2024 [facility] Comment on above: Expected: 04/14/2023 (Approximate), Expires: 04/14/2024 Start: 12-14-2022 Adult BMI Screening Adult BMI Screen ing [facility] Start: 12-14-2022 Tobacco Screening Tobacco Screening [facility] Start: 03-27-2022 [facility] Start: 09-28-2021 Influenza vaccination Flu vaccine (# 1) [facility] Start: 04-22-2021 Influenza vaccination Flu vaccine (# 1) [employer] Phone: Comment on above: Postponed from 10/29 (Patient Refused) Start: 04-22-2021 Pneumococcal 0-64 ye ars Vaccine (1 of 1 - PPSV23) Pneumococcal 0-64 years Vaccine (1 of 1 - PPSV23) [employer] Phone: Comment on above: Postponed from 02/19 (Patient Refused) Start: 04-07-2021 DTaP,Tdap and Td Vaccines (7 - Td or Tdap) DTaP,Tdap and Td Vaccines (7 - Td or Tdap) [facility] Start: 04-07-2021 DTaP/Tdap/Td vaccine (7 - Td or Tdap) DTaP/Tdap/Td vaccine (7 - Td or Tdap) [facility] Start: 04-07-2021 DTaP/Tdap/Td vaccine (7 - Td) DTaP/Tdap/Td vaccine (7 - Td) [employer] Phone: Start: 07-01-2020 Duplex scan of lower limb veins US venous duplex LE [facility] Start: 02-20-2016 Screening for malign ant neoplasm of cervix [facility] Start: 2013 Hepatitis C screening Hepatitis C fl jyothi [facility] Start: 2010 HIV screening HIV screen [facility] [employer] Start: 2007 Depression Screening Depression [facility] Start: 2001 Pneumococcal 0-64 ye ars Vaccine (1 - PCV) Pneumococcal 0-64 years Vaccine (1 - PCV) [facility] Start: 1995 COVID-19 Vaccine (#1) COVID-19 Vacci ne (#1) [facility] [employer] Start: 1995 Hepatitis C screening [facility] [employer] Work Phone: CHLAMYDIA TRACHOMATI S (GENITO/STI) CHLAMYDIA TRACHOMATIS (GENITO/STI) Lab Routine Exposure to STD Ordered: 04/14/2023 [facility] Comment on above: Ordered: 04/14/2023 Cytology Cervical or vaginal smear or scraping study Pap Smear Pathology and Cytology Routine Well woman exam with routine gynecological exam Ordered: 04/14/2023 [employer] Work Phone: Comment on above: Ordered: 04/14/2023 End: 02-12-2022 IR INJ ARTHROGRAM HIP LEFT IR INJ ARTHROGRAM HIP LEFT Imaging Routine Tear of left acetabular labrum, initial encounter 1 Occurrences starting 02/12/2022 until 02/12/2022 [facility]: Comment on above: 1 Occurrences starti ng 02/12/2022 until 02/12/2022 Neisseria gonorrhoea e DNA [Presence] in Unspecified specimen by ANNABELLE with probe detection Neisseria gonorrhea DNA probe, direct Lab Routine Exposure to STD Ordered: 04/14/2023 [facility] Comment on above: Ordered: 04/14/2023 SURESWAB(R) ADVANCED VAGINITIS PLUS, TMA SURESWAB(R) ADVANCED VAGINITIS PLUS, TMA Pathology and Cytology Routine Exposure to STD Ordered: 04/14/2023 [facility] Comment on above: Ordered: 04/14/2023 Immunizations Immunization Date Immunization Notes Care Provider Parker rodrigues 04-07-2011 human papilloma viru s vaccine, quadrivalent [facility] [employer] Phone: 04-07-2011 tetanus toxoid, redu julia diphtheria toxoid, and acellular pertussis vaccine, adsorbed [facility] Work Phone: 02-04-2010 influenza virus vacc ine, unspecified formulation [facility] [employer] Phone: 12-23-2009 human papilloma viru s vaccine, quadrivalent [facility] [employer] Phone: 12-23-2009 meningococcal ACWY vaccine, unspecified formulation [facility] [employer] Phone: 04-23-2009 human papilloma viru s vaccine, quadrivalent [facility] Work Phone: 10-21-2000 diphtheria, tetanus toxoids and acellular pertussis vaccine [facility] [employer] Phone: 10-21-2000 measles, mumps and r ubella virus vaccine [facility] [employer] Phone: 07-25-1997 diphtheria, tetanus toxoids and acellular pertussis vaccine [facility] [employer] Phone: 07-25-1997 hepatitis B vaccine, adult dosage [facility] [address] [facility] Work Phone: 07-25-1997 hepatitis B vaccine, unspecified formulation [facility] [employer] Phone: 07-25-1997 Hib, unspecified [facility] [employer] Work Phone: 07-19-1997 poliovirus vaccine, unspecified formulation [facility] [employer] Phone: 09-27-1996 diphtheria, tetanus toxoids and acellular pertussis vaccine [facility] Phone: 09-27-1996 Hib, unspecified Mirna Coleman [facility] Work Phone: 09-27-1996 measles, mumps and r ubella virus vaccine [facility] [employer] Phone: 09-27-1996 poliovirus vaccine, unspecified formulation [employer] [facility] [employer] Phone: 1995 diphtheria, tetanus toxoids and acellular pertussis vaccine Mirna [facility] [employer] Work Phone: 1995 Hib, unspecified [facility] Bennett [facility] Work Phone: 1995 poliovirus vaccine, unspecified formulation [employer] [facility] [employer] Phone: 1995 diphtheria, tetanus toxoids and acellular pertussis vaccine [employer] [facility] [employer] Phone: 1995 hepatitis B vaccine, adult dosage [facility] [employer] Phone: 1995 hepatitis B vaccine, unspecified formulation [employer] [facility] [employer] Phone: 1995 Hib, unspecified Mirna Bennett [facility] Work Phone: 1995 poliovirus vaccine, unspecified formulation [employer] [facility] [employer] Phone: 1995 hepatitis B vaccine, adult dosage [facility] [employer] Work Phone: 1995 hepatitis B vaccine, unspecified formulation [employer] [facility] [employer] Phone: Payers Date Payer Category Payer Self-pay [id number] 2018 Unknown [id number] 1995 Unknown [id number] 2.16.840.1.180053.3.579.2.5 93 1995 Unknown [id number] 2.16.840.1.497178.3.579.2.5 93 1995 Unknown [id number] 2.16.840.1.094360.3.579.2.5 93 1995 Unknown [id number] 2.16.840.1.508609.3.579.2.1 76 1995 Unknown [id number] 2.16.840.1.782549.3.579.2.1 76 1995 Unknown [id number] 2.16.840.1.591237.3.579.2.1 286 1995 Unknown [id number] 2.16.840.1.097496.3.579.2.1 286 1995 Unknown [id number] 2.16840.1.060844.3.579.2.1 286 1995 Unknown [id number] 2.16.840.1.429598.3.579.2.1 286 1995 Unknown [id number] 2.16.840.1.893541.3.579.2.1 259 1995 Unknown [id number] 2.16.840.1.534142.3.579.2.1 259 1995 Unknown [id number] 2.16.840.1.773022.3.579.2.1 259 1995 Unknown [id number] 2.16.840.1.822224.3.579.2.1 259 1995 Unknown [id number] 2.16.840.1.241134.3.579.2.1 259 1995 Unknown [id number] 2.16.840.1.175121.3.579.2.1 259 1995 Unknown [id number] 2.16.840.1.030247.3.579.2.1 259 1995 Unknown [id number] 2.16.840.1.539984.3.579.2.1 259 1995 Unknown [id number] 2.16.840.1.119816.3.579.2.1 259 1995 Unknown [id number] 2.16.840.1.395573.3.579.2.1 259 1995 Unknown [id number] 2.16.840.1.255490.3.579.2.1 259 1995 Unknown [id number] 2.16.840.1.508319.3.579.2.1 259 1995 Unknown [id number] 2.16.840.1.766062.3.579.2.1 259 1995 Unknown [id number] 2.16.840.1.403355.3.579.2.1 259 1995 Unknown [id number] 2.16.840.1.323660.3.579.2.1 286 1995 Unknown [id number] 2.16.840.1.358409.3.579.2.1 286 1995 Unknown [id number] 2.16.840.1.292286.3.579.2.1 286 1959 Unknown [id number] 1.2.840.688867.1.13.239.2.7 .[id number] Unknown [id number] Unknown Self Pay [id number] Unknown [id number] 2.16.840.1.559385.3.579.2.5 31 Worker's Compensation [employer] Misc [id number] Social History Date Type Detail Facility Start: 04-22-2020 End: 06-17-2023 Tobacco smoking status WYIS Current every day smoker [facility] Start: 02-28-2007 History of tobacco use Cigarette Smo ker [employer] Phone: Start: 03-16-2020 End: 04-22-2020 Cigarettes smoked current (pack per day) - Reported [employer] Phone: Start: 04-22-2020 End: 07-11-2023 Tobacco use and exposure Never used [employer] Phone: Start: 04-22-2020 End: 10-20-2023 Alcohol intake Current drinker of alcohol (finding) [employer] Phone: Start: 03-24-2015 Alcohol Comment occasional [employer] Work Phone: Start: 1995 Sex Assigned At Not on file [employer] Work Phone: Start: 1995 Sex Assigned At Female F [facility] Start: 03-16-2020 End: 08-14-[address] [facility] [employer] Other Start: 02-03-2022 History SDOH Physica l Activity DPW 0 [facility] [employer] Phone: Start: 03-27-2021 History SDOH Financial 5 [facility] [employer] Phone: Start: 02-03-2022 History SDOH IPV Fear 2 [facility] Work Phone: Start: 03-27-2021 History SDOH Food Worry 1 [facility] [employer] Phone: Start: 01-26-2022 End: 02-05-2022 Exposure to SARS-CoV-2 (event) Not sure [facility] Start: 08-14-2022 Alcohol Comment 1-2 drinks les s than monthly in the past year [facility] Start: 01-03-2023 [facility] Start: 06-17-2023 End: 08-10-2023 Alcoholic beverage intake Ex-drinker (finding) [facility] Childcare Unknown [facility] Start: 07-11-2023 Tobacco smoking stat [facility] Ex-smoker [facility] History of tobacco use Current smoker [facility] Goals Date Patient Goal Desired Activity /State Clinical Notes 08-17-2021 to 10-20-2023 Risa Tolbert LPN - 10/20/2023 11:40 AM Tamika Ybarra MD - 08/10/2023 9:00 AM Caroline Galvez RN - 08/10/2023 9:00 AM EDTTelephone Encounter - Edith Galvez RN - 07/12/2023 1:24 PM EDT Note Date & Type Note Facility 10-20-2023 History of Present illness Narrative Reason for Appointment: Patient ID: Darrius Vergara is a 28 y.o. female who presents for Care Patient presents today for Post Follow Up appointment. MEDICATIONS Current Outpatient Medications Medication Instructions etonogestrel-ethinyl estradiol (Nuvaring) 0.12-0.015 MG/24HR vaginal ring 1 Ring, Vaginal, Every 28 days, Insert vaginal ring for 3 weeks, then remove for 1 week. 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 Smoker 08/16/2022 Resolved Ambulatory Problems Diagnosis Date Noted No Resolved Ambulatory Problems Past Medical History: Diagnosis Date GERD (gastroesophageal reflux disease) Respiratory obstruction-inhaled food HISTORY PAST MEDICAL HISTORY SOCIAL HISTORY Past Medical History: Diagnosis Date GERD (gastroesophageal reflux disease) Respiratory obstruction-inhaled food Smoker Social History Tobacco Use Smoking status: Every Day Types: Cigarettes Start date: 02/28/2007 Smokeless tobacco: Not on file Substance Use Topics Alcohol use: Yes Comment: 1-2 drinks less than monthly in the past year Drug use: Not on file FAMILY HISTORY Family History Problem Relation Name Age of Onset Hypotension Mother SURGICAL HISTORY Past Surgical History: Procedure Laterality Date APPENDECTOMY BRONCHOSCOPY SECTION, LOW TRANSVERSE 09/10/2023 PELVIC LAPAROSCOPY REVIEW OF SYSTEMS Review of Systems: Review of Systems All other systems reviewed and are negative. OBJECTIVE Objective: Physical Exam Constitutional: Appearance: Normal appearance. She is well-developed. Cardiovascular: Rate and Rhythm: Normal rate and regular rhythm. Pulmonary: Effort: Pulmonary effort is normal. Breath sounds: Normal breath sounds. Abdominal: General: A surgical scar is present. Bowel sounds are normal. There is no [...] nursing note reviewed. Exam conducted with a e commerce merchant present. Vitals: Estimated body mass index is 43.55 kg/m as calculated from the following: Height as of 09/15/23: 5'. Weight as of this encounter: 223 lb. BP: 116/70 No LMP recorded. ASSESSMENT & PLAN ICD-10-CM 1. 6 weeks follow-up Z39.2 etonogestrel-ethinyl estradiol (Nuvaring) 0.12-0.015 MG/24HR vaginal ring 2. Encounter for initial prescription of vaginal ring hormonal contraceptive Z30.015 etonogestrel-ethinyl estradiol (Nuvaring) 0.12-0.015 MG/24HR vaginal ring Post Follow Up: Patient is doing well with no complaints at this time. Patient presents today for 6 week visit. Patient is s/p delivery. Patient states depression but denies suicidal and homicidal ideations. All options were discussed with the patient regarding control and patient desires NuvaRing. Follow Up: Patient is to return for annual unless needed otherwise. Documented by Risa Tolbert LPN on behalf of: Alvarado Perry DO documented in this encounter [facility] 08-10-2023 History of Present illness Narrative REASON FOR OFFICE VISIT: Follow up left clubfoot, chronic hypertension HISTORY OF PRESENT ILLNESS: Darrius Vergara is a pleasant 28 y.o. at 33w2d due on Estimated Date of Delivery: 09/26/23 . has been complicated by: clubfoot Marginal cord insertion Obesity Suspected Chronic hypertension Tobacco use, stopped during Currently the patient has no complaints. The patient denies headaches, vision changes, nausea, vomiting, right upper quadrant/epigastric pain, SOB or chest pain. She denies contractions, vaginal bleeding, leaking of fluid. She reports good movement. Patient Active Problem List Diagnosis Club foot, , affecting care of mother, antepartum Obesity affecting in third trimester Marginal insertion of umbilical cord affecting management of mother Enlarged thyroid gland Hypertension OB History Para Term AB Living 1 SAB IAB Ectopic Multiple Live Births # Outcome Date GA Lbr Rufino/2nd Weight Sex Type Anes PTL Lv 1 Current Allergies Allergen Reactions Bismuth Subcarbonate Hives Current Outpatient Medications: albuterol (PROVENTIL HFA;VENTOLIN HFA) 90 mcg/actuation inhaler, Inhale 2 puffs every 4 (four) hours as needed for wheezing., Disp: 18 g, Rfl: 0 PNV no.95/ferrous fum/folic ac ( ORAL), Take by mouth., Disp: , Rfl: cyclobenzaprine (FLEXERIL) 10 mg tablet, Take 1 tablet (10 mg total) by mouth 2 (two) times a day as needed for muscle spasms. (Patient not taking: Reported on 07/11/2023), Disp: 10 tablet, Rfl: 0 FLUoxetine (PROzac) 10 mg capsule, Take 1 capsule (10 mg total) by mouth in the morning. (Patient not taking: Reported on 07/11/2023), Disp: , Rfl: predniSONE (DELTASONE) 20 mg tablet, Take 2 tablets (40 mg total) by mouth in the morning. (Patient not taking: Reported on 07/11/2023), Disp: 10 tablet, Rfl: 0 REVIEW OF SYSTEMS: Head and Neck: Negative for any dizziness and headaches. Cardiovascular and Respiratory System: Denies any chest pain, shortness of breath, and coughing. Abdominal and System: Denies any abdominal pain, nausea, vomiting, vaginal bleeding, and vaginal discharge REVIEW OF ULTRASOUND. Pertinent Ultrasound findings are see report. PHYSICAL EXAMINATION: BP 121/80 Pulse 83 Wt 110.7 kg (244 lb) LMP 12/20/2022 BMI 47.65 kg/m . Well-appearing, no acute distress Normal gait well oriented in time place and person. Respirations not labored, speaking comfortably in complete sentences Gravid abdomen OVERALL ASSESMENT -Darrius Vergara is a pleasant 28 y.o. at 33w0d -left clubfoot -suspected chronic hypertension -marginal cord insertion -obesity -history of smoking, stopped during Counseling Please refer to my partners previous counseling. Summary of Recommendations: Patient not taking baby aspirin, was recommended at 12 weeks by primary OB. Patient states she simply forgot. recommend baseline EKG, through primary OB recommend baseline preeclampsia labs, through primary OB. The patient desires to have them done locally if she has elevated blood pressure greater than 140/90 please perform preeclampsia workup. Educated on signs symptoms of preeclampsia serial growth assessments every 4 weeks, through primary OB surveillance is recommended to start at 32 weeks with weekly NST/DVP, or earlier if poorly controlled HTN, FGR, or preeclampsia. Increase NST x2 week at 36 weeks please schedule through OB office ( testing recommended in the presence of BMI, concern for chronic hypertension, and anomaly) vaginal delivery preferred reserved section for routine indications IF she delivers by , recommend and medication for VTE prevention (LMWH) during delivery hospitalization. delivery from 38 0/7 weeks to 39 6/7 weeks of gestation for women with chronic hypertension who are not prescribed medication or from 37 0/7 weeks to 39 6/7 weeks of gestation for women whose chronic hypertension is well-controlled with medication. please notify roof bolter helper the patient will need to be referred to pediatric Orthopedic surgery location of delivery local hospital DISPOSITION: At this point the patient is in complete care of her senior account director. Patient does not have ultrasound and office visit scheduled with us. Thank you for allowing me to participate in the care of Darrius Vergara. If there any questions please do not hesitate to contact us. Total time spent was 35 minutes: Preparing to see the patient (e.g., review of tests) Obtaining and/or reviewing separately obtained history Performing a medically appropriate examination and/or evaluation Counseling and educating the patient/family/caregiver Ordering medications, tests, or procedures Referring and communicating with other health eye care professional (not separately reported) Documenting clinical information in the electronic or other health record Perry Ybarra MD Maternal- Medicine [facility] [address] [place] [address] [facility], the CDC, and other organizations representing maternal and public health professionals recommend that , , and lactating people and those considering receive the COVID-19 vaccination. Vaccination is the best method to reduce maternal and complications of SARS-CoV-2 infection. This document was created with [employer] technology. Though I make every effort to review the dictation as it is transcribed, on occasion the spoken word can be misinterpreted by the technology leading to inappropriate words, phrases, or sentences. This note is addressed to the requesting provider as a consultation for clinical guidance. Specific medical abbreviations are occasionally used and those are generally approved by the [place]?Board of?Obstetrics and?Gynecology?as well as?Lana parrish abbreviations. The above plan of care was based solely on the diagnoses for which a consultation was requested. ?More frequent testing may be indicated based on her other medical/obstetrical conditions. The management of other or medical conditions is beyond the scope of requested consultation and will continue to be followed by the primary senior account director or primary care provider. Note to patient: The Century Cures Act makes medical notes like these available to patients in the interest of transparency. However, be advised this is a medical document. It is intended as peer to peer communication. It is written in medical language and may contain abbreviations or verbiage that are unfamiliar. It may appear blunt or direct. Medical documents are intended to carry relevant information, facts as evident, and the clinical opinion of the practitioner. Headache/epigastric pain/blurry vision/swelling? no Cramping/contractions? no Abnormal vaginal discharge? no Spotting or vaginal bleeding? no Loss of fluid like your water may have broken? no Recent ER visits or hospitalizations? no Any concerns that you would like me to mention to the provider today? no documented in this encounter [facility] 07-12-2023 Miscellaneous Notes Called patient to inform of change in schedule. No answer, left VM to please call scheduling office if needing to reschedule documented in this encounter [facility] 07-12-2023 Telephone encounter Note Called patient to inform of change in schedule. No answer, left VM to please call scheduling office if needing to reschedule [facility] 07-11-2023 History of Present illness Narrative [facility] Maternal- Medicine Consult Note Reason For Consult: left club foot HPI: Darrius Vergara is a 28 y.o. at 29w0d with Estimated Date of Delivery: 09/26/23 based on LMP=US at regarding Chief Complaint Patient presents with left club foot I have reviewed the pertinent available patient records including but not limited to notes, labs and images She presents today with a family relative. She reports that she is doing well. She reports normal movements and she denies leakage of fluid, contractions or vaginal bleeding. She denies fever, chills, nausea, vomiting, shortness of breath, chest pain, headache, blurry vision, right upper quadrant pain or edema. Complications: left club foot, No other sonographic anomalies on ultrasound today Marginal cord insertion Obesity Smoking - stopped during 12 ppd History of elevated blood pressures suspected chronic hypertension. She is not on antihpertensive medications. She tells me she has never been diagnosed with a hypertension. Elevated blood pressures were noted at multiple emergency room visits. The patient tells me that when she has been going to the emergency room it has been in the setting of pain and she has noted then she has elevated blood pressure Today her blood pressure is normal and she denies any signs and symptoms of preeclampsia 08/15/2016 11/08/2016 11/14/2016 02/18/2017 03/03/2017 07/09/2017 11/13/2017 Reported Vitals SYSTOLIC 100 112 108 128 138 ! 106 106 SYSTOLIC 130 136 131 137 ! DIASTOLIC 62 71 62 70 108 (H) 68 57 DIASTOLIC 73 90 68 92 (H) Pulse 88 69 108 87 90 87 74 Pulse 84 80 92 Temp 36.3 C 37.0 C 36.8 C 36.8 C 36.5 C 37.1 C 36.7 C Resp 14 18 28 ! 17 18 21 18 Resp 20 22 18 07/03/2018 04/26/2019 03/16/2020 03/04/2021 05/12/2021 05/21/2021 12/14/2021 Reported Vitals SYSTOLIC 122 115 143 155 163 ! 148 141 ! SYSTOLIC 121 SYSTOLIC 121 DIASTOLIC 77 78 89 72 112 (H) 82 93 (H) DIASTOLIC 70 DIASTOLIC 70 Pulse 91 84 102 115 101 89 Temp 36.8 C 36.9 C 36.7 C 36.8 C 36.8 C 37.0 C 36.1 C Resp 18 18 18 18 16 20 18 Resp 28 ! 07/11/2023 Reported Vitals SYSTOLIC 114 DIASTOLIC 76 Pulse Temp Resp Legend: ! Abnormal (H) High Cell free DNA low risk male fetus Carrier screen negative see media tab Denies family history of: Learning difficulties, congenital anomalies, DVT/VTE, early-onset cancer, early-onset cardiac disease or other inherited conditions Denies smoking, alcohol or other substance use in Recent hospitalization: no Review of systems: Review of systems was noncontributory OB Hx: OB History Para Term AB Living 1 SAB IAB Ectopic Multiple Live Births # Outcome Date GA Lbr Rufino/2nd Weight Sex Type Anes PTL Lv 1 Current PMH: Past Medical History: Diagnosis Date Anxiety Chondromalacia of patella Fracture of arm Gastritis Gastritis GERD (gastroesophageal reflux disease) PSHIST: Past Surgical History: Procedure Laterality Date APPENDECTOMY BRONCHOSCOPY PELVIC LAPAROSCOPY Allergies: Allergies Allergen Reactions Bismuth Subcarbonate Hives Meds: Current Outpatient Medications: albuterol (PROVENTIL HFA;VENTOLIN HFA) 90 mcg/actuation inhaler, Inhale 2 puffs every 4 (four) hours as needed for wheezing., Disp: 18 g, Rfl: 0 PNV no.95/ferrous fum/folic ac ( ORAL), Take by mouth., Disp: , Rfl: cyclobenzaprine (FLEXERIL) 10 mg tablet, Take 1 tablet (10 mg total) by mouth 2 (two) times a day as needed for muscle spasms. (Patient not taking: Reported on 07/11/2023), Disp: 10 tablet, Rfl: 0 FLUoxetine (PROzac) 10 mg capsule, Take 1 capsule (10 mg total) by mouth in the morning. (Patient not taking: Reported on 07/11/2023), Disp: , Rfl: predniSONE (DELTASONE) 20 mg tablet, Take 2 tablets (40 mg total) by mouth in the morning. (Patient not taking: Reported on 07/11/2023), Disp: 10 tablet, Rfl: 0 SH: Social History Socioeconomic History Marital status: Single Spouse name: Not on file Number of children: Not on file Years of education: Not on file Highest education level: Not on file Occupational History Not on file Tobacco Use Smoking status: Former Current packs/day: 0.50 Average packs/day: 0.5 packs/day for 7.0 years (3.5 ttl pk-yrs) Types: Cigarettes Smokeless tobacco: Never Vaping Use Vaping status: Never Used Substance and Sexual Activity Alcohol use: Not Currently Drug use: Not Currently Types: Marijuana Sexual activity: Yes Partners: Male Other Topics Concern Not on file Social History Narrative Not on file Social Determinants of Health Financial Resource Strain: Low Risk (03/27/2021) Received from [facility] Overall Financial Resource Strain (CARDIA) Difficulty of Paying Living Expenses: Not hard at all Food Insecurity: No Food Insecurity (03/27/2021) Received from [facility] Hunger Vital Sign Worried About Running Out of Food in the Last Year: Never true Ran Out of Food in the Last Year: Never true Transportation Needs: Not on file Physical Activity: Unknown (02/03/2022) Received from [facility] Exercise Vital Sign Days of Exercise per Week: 0 days Minutes of Exercise per Session: Not on file Stress: Not on file Social Connections: Not on file Interpersonal Safety: Not At Risk (02/03/2022) Received from [facility] Humiliation, Afraid, Rape, and Kick questionnaire Fear of Current or Ex-Partner: No Emotionally Abused: No Physically Abused: No Sexually Abused: No Housing Instability: Not on file Physical Exam: Vital Signs Vitals: 07/11/23 1401 BP: 114/76 Physical Exam: Gen: Not in acute distress, alert and oriented. Neck: enlarged thyroid Eyes: Pupils equal and reactive Chest: Nonlabored breathing Cardiac: Pulse was regular on vital signs assessment Abdomen: Gravid Skin/extremities: Appears intact. No visible lesions MS:no visible edema Neuro: No focal deficits Notes/Imaging/Labs reviewed Abstract on 06/17/2023 Component Date Value Ref Range Status Syphilis 03/02/2023 non-reactive Final Rubella immune IgG 03/02/2023 5.50 Final HIV 1&2 AB/AG 03/02/2023 non-reactive Final Hepatitis B Surface Antigen 03/02/2023 negative Final Thyroid Stimulating (3Rd Generatio* 03/01/2023 1.055 Final Abo/Rh(D) 03/01/2023 A Positive Final Antibody Screen 03/01/2023 negative Final Chlamydia Dna(Pcr) 04/14/2023 negative Final Gonorrhoeae Dna(Pcr) 04/14/2023 negative Final Ultrasound findings Pertinent Ultrasound findings are IMPRESSION: 1. Single intrauterine with size consistent with dates. 2. Left club foot visualized. 3. No other sonographic evidence of gross structural abnormality identified 4. Amniotic fluid volume assessment (DVP) is normal. Assessment/Plan 28 y.o. @ at 29w0d with Estimated Date of Delivery: 09/26/23 here for consultation regardin. 29 weeks gestation of 2. Club foot of fetus affecting antepartum care of mother, single or unspecified fetus The prevalence rate of clubfoot varies from 0.9 to 7 per 1000 live births in different populations. Most of the studies reported that the incidence of clubfoot is higher in male than in female (2:1), and this ratio is consistent in all ethnic population. 50% of the cases are either bilateral or unilateral clubfoot. The causes of clubfoot are still not clearly known and it remains controversial. Previous studies have reported a number of theories to describe the causes of clubfoot including vascular, environmental, genetic, abnormal position in utero, and anatomical factors. Mostly clubfoot present as a defect (idiopathic congenital club foot), and around 20% of the clubfoot deformities are associated with other conditions (see below). Especially, clubfoot associated with distal arthrogryposis, meningomyelocele, and is considered a main etiological factor among the involvement of nervous system disorders. In addition, the causes of clubfoot are also associated with some risk factors such as male gender , and diabetes for example. Chromosome abnormalities (30% complex, 2% isolated), including trisomy 18, 13, 21; 4p, 18q, and 22q11.2 deletion syndromes; sex chromosome abnormalities; microdeletions; or duplications. Genetic syndromes such as Torres; Eric; PierreRobin; Alarcon-Shokeir; Meckel-Marta; Guadarrama-LemliOpitz; Ellison; TARP (Talipes equinovarus, Atrial septal defect, Maciej sequence, Persistence of left superior vena cava); and Lambert, among others Skeletal dysplasias such as Guajardo van Creveld syndrome, diastrophic dysplasia, chondrodysplasia punctata, camptomelic dysplasia, atelosteogenesis, and mesomelic dysplasia Neuromuscular conditions that include arthrogryposis multiplex congenita, myotonic dystrophy, and spinal muscular atrophy Other neurologic abnormalities such as neural tube defects, holoprosencephaly, and hydranencephaly Extrinsic factors that can affect foot position in utero include oligohydramnios, breech presentation, M llerian anomalies, multiple gestation, amniotic band sequence, or amniocentesis at <15 weeks of gestation Clubfoot can be classified into four types based on the causes and treatment responses: 1) Postural, 2) Idiopathic, 3) Neurogenic, 4) Syndromic. Diagnostic testing (amniocentesis or chorionic villus sampling) with chromosomal microarray analysis (CHIEF CONSOLE OPERATOR) should be offered when a club foot is detected. Also MRI should be considered especially if other anomalies are detected. Today there is an isolated left club foot. No other sonographic anomalies. Amniocentesis was discussed and the risks were reviewed including but not limited to loss 1 in 800, infection, bleeding, leakage of fluid, labor. The patient for now declines and desires to further discuss with her significant other. She will let us know if she desires to proceed with a an amniocentesis. MRI was reviewed and the patient declined. The prognosis depends on associated conditions but is generally excellent for isolated clubfoot. and neurodevelopmental and musculoskeletal issues are more likely with complex cases. The current usual approach to therapy is the [place] method, which involves foot manipulation, serial casting, bracing, and monitoring for and treatment of relapse if it occurs. About 12-50% will require surgical treatment and pediatric orthopedic consult is recommended. 3. Obesity affecting in third trimester, unspecified obesity type Body mass index is 47.07 kg/m . The patient has a BMI of > 40, which is a risk factor for adverse outcomes in . These possible complications including increased risks for miscarriage in the first trimester, congenital anomalies, hypertensive disorders of including preeclampsia, diabetes mellitus, demise, and delivery (with subsequent risks of wound infection, wound complications otherwise, and/or VTE). While we do not recommend weight loss during (inadequate weight gain and weight loss are associated with increased risks of growth restriction or SGA), we discussed the importance of a healthy diet and exercise. Her goal for weight gain throughout gestation should be 11-20 pounds. Due to the inability to monitor growth using fundal height measurements, serial growth assessment via US is recommended. in the setting of increased risk of demise she will qualify for surveillance. For obesity BMI >40 ACOG suggests the following: - Inadequate weight gain and gestational weight loss should not be encouraged, as this is associated with increased risk of SGA. - Nutrition counseling. - Screening for gestational diabetes in obese women at the first visit and again at 24-28 weeks if the initial screen is negative. - Screening for ANA at the first visit, with referral to Sleep Medicine if ANA is suspected - Consideration for antepartum anesthesia consultation for women with a BMI>40 kg/m2, and especially in those women with ANA. - Place SCDs prior to cesaeran, and continue . For women with a BMI>40 kg/m2, consider prophylactic low molecular weight heparin therapy for 3-5 days after or vaginal delivery. This is in addition to the use of sequential compression devices for the first 12-24 hours after surgery. For this extreme obesity, evidence favors a weight-based regimen of 0.5 mg/kg every 12 hours as thromboprophylaxis. 4. Marginal insertion of umbilical cord affecting management of mother Approximately five to seven percent of pregnancies have a marginal cord insertion. The primary association of concern with marginal cord insertion is poor growth, although the evidence for this association is not robust. In the setting of the marginal cord insertion, follow up assessment for growth in the third trimester is recommended. 5. History of elevated blood pressures suspected chronic hypertension. She is not on antihpertensive medications. She tells me she has never been diagnosed with a hypertension. Elevated blood pressures were noted at multiple emergency room visits. The patient tells me that when she has been going to the emergency room it has been in the setting of pain and she has noted then she has elevated blood pressure. Chronic hypertension (CHTN) is defined as either a history of hypertension prior to or a blood pressure of >140/90 prior to 20 weeks of gestation. Hypertension occurs in 1-5% of women. Maternal complications include worsening HTN, superimposed preeclampsia, eclampsia, HELLP syndrome. complications include growth restriction, oligohydramnios, placental abruption, , and . The more severe the hypertension, the higher the incidence of the above complications. In addition hypertension is associated with a long-term risk for adverse cardiovascular events thus would recommend baseline maternal echocardiogram and EKG if she has not had one done. Reviewed the physiologic changes in with normal physiologic decrease in systemic vascular resistance leads to a decrease in blood pressure, with its kristy at mid gestation, followed by return to prepregnancy levels by the third trimester. It is sometimes difficult to distinguish preeclampsia from a hypertensive crisis later in , as such, I recommend getting baseline labs to help distinguish these later in . Baseline labs include: LFTs, CBC, creatinine, urine analysis, protein creatinine ratio for proteinuria assessment. Medical therapy recommendations: In conclusion, the CHAP trial provides evidence that the treatment of mild chronic hypertension in , compared to no treatment unless hypertension becomes severe, reduces the risk of maternal and morbidity without increasing the risk of SGA infants or other morbidities. Based on the available evidence, [facility] recommends treatment with antihypertensive therapy for mild chronic hypertension in to a goal BP <140/90 mm Hg. Patients with treated chronic hypertension should continue established antihypertensive therapy during or change to a regimen compatible with to achieve this treatment goal. ACEI and ARB are absolutely contraindicated in , and care should be exercised regarding the use of diuretics such as furosemide and hydrochlorothiazide. In general, for the initial treatment of women with chronic hypertension who require pharmacologic therapy, labetalol, methyldopa or nifedipine are recommended. Continue to monitor blood pressure, with a goal blood pressure of less than 140/90. Additionally, home blood pressure monitoring should be encouraged. She is not on meds at this time. If you think the patient requires initiation of antihypertensive medications please reach out to Maternal- Medicine for further recommendations. The patient is too late to start low-dose aspirin for preeclampsia prevention 6. Enlarged thyroid gland Please perform an ultrasound of the thyroid and check her TSH and free T4. Patient desires to have this done locally. I congratulated her that she was able to stop smoking. Continue to encourage smoking abstinence. I gave her education on adverse maternal and outcomes with smoking. Recommendations: -to return in 4 weeks for growth, evaluation of limbs and MFM visit -please notify roof bolter helper the patient will need to be referred to pediatric Orthopedic surgery -location of delivery local hospital -the patient to reach out to MFM team if she desires amniocentesis -serial growth assessments every 4 weeks -if she has elevated blood pressure greater than 140/90 please perform preeclampsia workup. -healthy diet and exercise -daily movement assessment after 28 weeks. - surveillance is recommended to start at 32 weeks with weekly NST/DVP, or earlier if poorly controlled HTN, FGR, or preeclampsia. Increase NST x2 week at 36 weeks - please schedule through OB office ( testing recommended in the presence of BMI, concern for chronic hypertension, and anomaly) - please obtain baseline EKG. - please obtain baseline preeclampsia labs. The patient desires to have them done locally - please obtain thyroid function studies and ultrasound of the thyroid gland the patient desires to have this done locally - vaginal delivery preferred reserved section for routine indications -If she delivers by , recommend and medication for VTE prevention (LMWH) during delivery hospitalization. -delivery from 38 0/7 weeks to 39 6/7 weeks of gestation for women with chronic hypertension who are not prescribed medication or from 37 0/7 weeks to 39 6/7 weeks of gestation for women whose chronic hypertension is well-controlled with medication. Plan reviewed with patient. She vocalized understanding all questions answered. The patient is to continue with routine care in your office Thank you for allowing me to participate in her care. Please contact me if you have any concerns. Leo Johnson MD, FACOG (she/hers) Maternal- Medicine [facility] [address] 1st [place] [address] This document was created with [employer] technology. Though I make every effort to review the dictation as it is transcribed, on occasion the spoken word can be misinterpreted by the technology leading to inappropriate words, phrases, or sentences. This note is addressed to the requesting provider as a consultation for clinical guidance. Specific medical abbreviations are occasionally used and those are generally approved by the [place]?Board of?Obstetrics and?Gynecology?as well as?Lana parrish abbreviations. The above plan of care was based solely on the diagnoses for which a consultation was requested. ?More frequent testing may be indicated based on her other medical/obstetrical conditions. The management of other or medical conditions is beyond the scope of requested consultation and will continue to be followed by the primary senior account director or primary care provider. Note to patient: The Century Cures Act makes medical notes like these available to patients in the interest of transparency. However, be advised this is a medical document. It is intended as peer to peer communication. It is written in medical language and may contain abbreviations or verbiage that are unfamiliar. It may appear blunt or direct. Medical documents are intended to carry relevant information, facts as evident, and the clinical opinion of the practitioner. Headache/epigastric pain/blurry vision/swelling? no Cramping/contractions? no Abnormal vaginal discharge? no Spotting/vaginal bleeding? no Loss of fluid like your water may have broken? no Cats in the home? no Do you change the litter box? Flu vaccine? no Genetic testing done this here or other office? yes Have you been seen here at [facility] in a previous ? no Recent ER visits or hospitalizations? no Bring blood sugar log or meter with you today? (Please bring them with you for every visit at [facility]) n/a Traveled outside the country in the past 6 month no Any concerns that you would like me to mention to the provider today? no [facility] History of Present illness Narrative Reason for Appointment: Patient ID: Darrius Vergara is a 28 y.o. female who [...] nursing note reviewed. Exam conducted with a e commerce merchant present. Vitals: Estimated body mass index is [...] her MSAFP order do have done at [facility]. Documented by Lauren Crystal MA on behalf of: Alvarado Perry DO documented in this encounter [facility] 04-12-2022 Evaluation note Encounter Date Diagnosis [...] left ear, unspecified type (ICD-10 - H60.502) [employer] Other 12-16-2022 History of Present illness Narrative* Analia Sin RN - 02/12/2022 8:30 AM EST Patient tolerated left hip injections without distress. Dry dressing to site. Patient to MRI for further imaging. [facility] [employer] Phone: [phone] Evaluation note* Encounter Date Diagnosis Assessment Notes Treatment Notes Treatment Clinical Notes Nov, Tattoo reaction (ICD-10 - L92.3) Use medication as directed. complete all doses. Recommend unscented soap to [facility] [employer] Other 09-14-2022 Evaluation note* Encounter Date Diagnosis [...] no improvement in 2 to 3 days. [employer] Other 06-20-2022 Evaluation note* Encounter Date Diagnosis [...] days, Tendonitis home care material was printed [employer] Other Evaluation noteNo Assessments Information Available [facility]* Diagnosis Tear of left acetabular labrum, initial encounter documented in this encounter [facility] Work Phone: evaluation note* Diagnosis Well woman exam with routine gynecological exam Routine gynecological examination Exposure to STD Encounter for anatomic survey Need for maternal serum alpha-protein (MSAFP) screening Second trimester state, incidental documented in this encounter [facility] noteNo assessment information availableBu[facility] [employer] Work Phone: Evaluation note* Diagnosis 6 weeks follow-up Encounter for initial prescription of vaginal ring hormonal contraceptive documented in this encounter [facility]* Diagnosis 29 weeks gestation of - Primary Club foot of fetus affecting antepartum care of mother, single or unspecified fetus Obesity affecting in third trimester, unspecified obesity type Marginal insertion of umbilical cord affecting management of mother Enlarged thyroid gland Goiter, unspecified Hypertension, unspecified type documented in this encounter [facility]* Diagnosis 33 weeks gestation of - Primary Club foot of fetus affecting antepartum care of mother, single or unspecified fetus Obesity affecting in third trimester, unspecified obesity type Marginal insertion of umbilical cord affecting management of mother Hypertension affecting in third trimester documented in this encounter [facility] Narrative - Reported* Type Description Date Surgical History laparoscopy female Surgical History appendectomy Surgical History bronchoscopy [employer] Other History general Narrative - Reported* Type Description Date Medical History Esophageal reflux Surgical History laparoscopy female Surgical History appendectomy Surgical History bronchoscopy [employer] [facility] [employer] Other Hospital Discharge instructions* Attachments The following attachments cannot be sent through Care Everywhere. * Joint Injections (Malagasy) documented in [facility] Work Phone: InstructionsNot on filedocumented in this encounter [facility]* Attachments The following attachments cannot be sent through Care Everywhere. 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 Expl anation ACP-Advance Directive ACP-Power of Sole Painter Documents on File Type Date Recorded Patient Production Welding Supervisor Expl anation ACP-Advance Directive ACP-Power of Sole Painter Advance Directive Response Recorded Date/ Time Advance Directives No October 09, 2017 12:18pm Reason for Referral Status Reason Specialty Diagnoses / Procedures Referre d By Contact Referred To Contact Closed Radiology Diagnoses RUQ pain Procedures [place] [address] [place] [address] Specialty Diagnoses / Procedures Referred By Contac t Referred To Contact Radiology Diagnoses Tear of left acetabular labrum, initial encounter Procedures IR [place] [address] [place] [address] Referral ID Status Reason Start Date Expiration Date Visits Re quested Visits Authorized [id number] Closed 02/12/2022 02/12/2023 1 1 Specialty Diagnoses / Procedures Referred By Hiltonac t Referred To Contact Radiology Diagnoses Tear of left acetabular labrum, initial encounter S73.192A (ICD-10-CM) - Tear of left acetabular labrum, initial encounter Procedures IR INJ ARTHROGRAM HIP LEFT IL INJECTION HIP ARTHROGRAM [address]322 - [place]JE[place] [address] [place] [address] Referral ID Status Reason Start Date Expiration Date Visits Re quested Visits Authorized [id number] Closed 02/05/2022 02/05/2023 1 1 Chief Complaint and Reason for Visit Chief Complaint Tenderness of left c sancho Chief Complaint Unknown Summary Purpose Family History No Family History [...] Procedures US GALLBLADDER RUQ Camron Alicea, LALA [address] [place] [address] Specialty Diagnoses / Procedures Referred By Contabimael t Referred To Contact Radiology Diagnoses Tear of left acetabular labrum, initial encounter S73.192A (ICD-10-CM) - Tear of left acetabular labrum, initial encounter Procedures IR INJ ARTHROGRAM HIP LEFT IL INJECTION HIP ARTHROGRAM [address]42 - [place]JE[place] [address] [place] [address] Referral ID Status Reason Start Date Expiration Date Visits Re quested Visits Authorized [id number] Closed 02/05/2022 02/05/2023 1 1 Reason Comments Routine Visit Reason Comments Care Reason Comments left club foot Reason Comments clubbed left foot marginal cord insertion INFORMATION SOURCE (unrecogn ized section and content) DATE CREATED AUTHOR 03/29/[address] [facility] DATE CREATED AUTHOR AUTHOR'S ORGANIZ ATION 08/17/2021 [facility] DATE CREATED AUTHOR AUTHOR'S ORGANIZ ATION 02/18/2022 [facility] DATE CREATED AUTHOR AUTHOR'S ORGANIZ ATION 08/11/2023 [facility] DATE CREATED AUTHOR AUTHOR'S ORGANIZ ATION 09/16/2023 [facility] DATE CREATED AUTHOR AUTHOR'S ORGANIZ ATION 10/22/2023 [facility] DATE CREATED AUTHOR AUTHOR'S ORGANIZ ATION 04/12/2024 [facility] DATE CREATED AUTHOR AUTHOR'S ORGANIZ ATION 04/13/2024 [facility] Care Teams (unrecognized sec tion and content) Head Sugar Reprocess Operator Relationship Specialty [place] [address] [place] [address] PCP - General Family Medicine 03/11/15 Team Status: Active Member Role Status Dates Mirna Bennett MD Primary Care Provider Active Team Status: Inactive Member Role Status Dates Mirna Bennett MD Primary Care Provider Active Start: September 10, 2023 End: September 10, 2023 Alvarado Perry DO Attending Provider Active Start : September 10, 2023 End: September 10, 2023 Head Sugar Reprocess Operator Relationship Specialty [place] [address] [facility] [place] [address] PCP - General Family Medicine 08/15/16 Head Sugar Reprocess Operator Relationship Specialty [place] [address] [facility] [place] [address] PCP - General Family Medicine 08/15/16 Head Sugar Reprocess Operator Relationship Specialty [place] [address] [facility] [place] [address] PCP - General Family Medicine 08/15/16 Goals (unrecognized section and content) Goals may be documented in a n alternate section FOR RECORDS PERTAINING TO PATIENTS WHO ARE [...] BE BASED ON THE PRIMARY CLINICAL RECORDS. [facility] [employer] [facility]. provides no warranty or guarantee of the accuracy or completeness of information in this document.
== END 2024-04-17 20:37 | disposition home or self-care (01) ==
LOC: LAB 20:36
PROVIDERS: Visit Provider Obstetrics & Gynecology
DX: Z01.419 Encounter for gynecological examination (general) (routine) without abnormal findings (principal)
CPT/HCPCS: 88175

== ENCOUNTER 2024-12-04 13:45 | Outpatient (OUT) | payer BC, SELFPAY ==
--- OUTSIDE RECORDS SUMMARY | 2024-11-22 15:50 | XMS_ITS | Encounter Summary ---
Author Organization [facility] Address [address] [place] [address] Care Team Providers Care Tugboat Mate Name Role Phone Unavailable Primary Care Provider Unavailabl e Reason for Visit * Reason Comments Breast Pain Pt present today for right breast pain. Encounter Details Date Type Department Care Team (Late st Contact Info) Description 11/22/2024 3:50 PM EDT Office Visit [facility] [address] [place] [address] Renate Jacobson NP [address] [place] [address] Breast pain; Mass of right breast, unspecified quadrant Social History Tobacco Use Types Packs/Day Years Used Date Smoking Tobacco: Every Day Cigarettes Started: 02/28/2007 Alcohol Use Standard Drinks/Week Comments Yes 0 (1 standard drink = 0.6 oz pure alcohol) 1-2 drinks less than monthly in the past year Comments No Sex and Gender Information Value Date Recorded Sex Assigned at Not on file Legal Sex Female 11:16 PM EDT Gender Identity Not on file Sexual Orientation Not on file documented as of this encounter Last Filed Vital Signs Vital Sign Reading Time Taken Comments Blood Pressure 112/72 11/22/2024 3:54 PM EDT Pulse - - Temperature - - Respiratory Rate - - Oxygen Saturation - - Inhaled Oxygen Concentration - - Weight 88.9 kg (196 lb) 11/22/2024 3:54 PM EDT Height - - Body Mass Index 38.28 09/15/2023 1:43 PM EDT documented in this encounter [facility] * Renate Jacobson NP - 11/22/2024 3:50 PM EDT Images from the original note were not included. Reason for Appointment: Patient ID: Vianey Krmaer is a 29 y.o. female who presents for Breast Pain (Pt present today for right breast pain.) Patient presents today for Acute Visit. MEDICATIONS Current Outpatient Medications Medication Instructions albuterol HFA 90 mcg/act inhaler INHALE 1-2 PUFFS BY MOUTH EVERY 4-6 HOURS NEEDED FOR COUGH, SHORTNESS OF BREATH, OR WHEEZING. etonogestrel-ethinyl estradiol (EluRyng) 0.12-0.015 MG/24HR vaginal ring INSERT 1 RING INTO THE VAGINA AND LEAVE IN FOR 3 WEEKS, THEN REMOVE FOR 1 WEEK ondansetron ODT (ZOFRAN-ODT) 4 mg, Every 8 hours PRN prochlorperazine (COMPAZINE) 10 mg, 2 times daily PRN ALLERGIES Allergies Allergen Reactions Bismuth Subsalicylate Hives [...] SYSTEMS Review of Systems: Review of Systems Constitutional: Negative. HENT: Negative. Eyes: Negative. Respiratory: Negative. Cardiovascular: Negative. Gastrointestinal: Negative. Genitourinary: Negative. Musculoskeletal: Negative. Skin: Negative. Patient with complaints of tender mass to right breast noticed about 1 week ago Neurological: Negative. All other systems reviewed and are negative. Hematological: Negative. Endocrine: Negative. Allergic/Immunologic: Negative. OBJECTIVE Objective: Physical Exam Constitutional: Appearance: Normal appearance. She is well-developed. Genitourinary: Genitourinary Comments: Tender palpable mass at 1 O'clock right breast. Mass 0.6 cm 2.5 cm from nipple line Breasts: Breasts are soft. Right: Mass and tenderness present. Left: Normal. Cardiovascular: Rate and Rhythm: Normal rate and regular rhythm. Pulmonary: Effort: Pulmonary effort is normal. Breath sounds: Normal breath sounds. Chest: Abdominal: General: Bowel sounds are normal. There [...] nursing note reviewed. Exam conducted with a tool supervisor present. Vitals: Estimated body mass index is 38.28 kg/m?? as calculated from the following: Height as of 09/15/23: 5'. Weight as of this encounter: 196 lb. BP: 112/72 No LMP recorded. (Menstrual status: No Periods). ASSESSMENT & PLAN ICD-10-CM 1. Breast pain N64.4 Bilateral screening mammogram Right diagnostic mammogram Bilateral screening mammogram 2. Mass of right breast, unspecified quadrant N63.10 Bilateral screening mammogram Right diagnostic mammogram Bilateral screening mammogram Patient with tender right breast mass noticed approximately 1 week prior. She reports no nipple discharge. There is no warmth or erythema. She is afebrile and otherwise well appearing. Diagnostic Mammogram is requested. Documented by Renate Jacobson NP on behalf of: Renate Jacobson NP documented in this encounter Plan of Treatment Upcoming Encounters Date Type Department Care Team (Late st Contact Info) Description 04/23/2025 11:00 AM EST Office Visit [facility] [address] [place] [address] Alvarado Perry, [address] [place] [address] Scheduled Orders Name Type Priority Associated Diagnoses Orde r Schedule Bilateral screening mammogram Imaging Routine Breast pain Mass of right breast, unspecified quadrant Expected: 11/22/2024 (Approximate), Expires: 01/22/2026 Right diagnostic mammogram Imaging Routine Breast pain Mass of right breast, unspecified quadrant Expected: 11/22/2024 (Approximate), Expires: 01/22/2026 documented as of this encounter Visit Diagnoses Diagnosis Breast pain Mastodynia Mass of right breast, unspecified quadrant documented in this encounter
--- OUTSIDE RECORDS SUMMARY | 2024-12-04 13:47 | XMS_ITS | Encounter Summary ---
Author Organization [facility] Address [address] [place] [address] Care Team Providers Care Expense Clerk Name Role Phone Unavailable Primary Care Provider Unavailabl e Encounter Details Date Type Department Care Team (Late Contact Info) Description 09/06/2023 Abstract [facility] [address] [place] [id number] Alvarado Perry DO [facility] [place], [facility] Social History Tobacco Use Types Packs/Day Years Used Date Smoking Tobacco: Every Day Cigarettes Started: 02/28/2007 Alcohol Use Standard Drinks/Week Comments Yes 0 (1 standard drink = 0.6 oz pure alcohol) 1-2 drinks less than monthly in the past year Comments Yes Sex and Gender Information Value Date Recorded Sex Assigned at Not on file Legal Sex Female 11:16 PM EDT Gender Identity Not on file Sexual Orientation Not on file documented as of this encounter Plan of Treatment Upcoming Encounters Date Type Department Care Team (Late Contact Info) Description 04/23/2025 11:00 AM EST Office Visit [facility] [address] [place] [address] Alvarado Perry DO [address] [place], [place] [id number] documented as of this encounter Visit Diagnoses Not on filedocumented in this encounter
--- OUTSIDE RECORDS SUMMARY | 2024-12-04 13:47 | XMS_ITS | Encounter Summary ---
Author Organization [facility] Address [address] [place] [address] Care Team Providers Care Clay Thrower Name Role Phone Unavailable Primary Care Provider Unavailabl e Encounter Details Date Type Department Care Team (Late Contact Info) Description 09/07/2023 Clinisync Result Encounter [facility] External Department Unsolicited Kathy Perry, DO [address] [place], [place] [id number] Social History Tobacco Use Types Packs/Day Years [...] 04/23/2025 11:00 AM EST Office Visit [facility] [address] [place] [phone] Kathy Perry DO [address] [place] [address] documented as of this encounter Procedures Procedure Name Priority Date/Time Associated Diagnosis Comments US OB BPP W NON-STRESS 09/07/2023 11:29 AM EDT documented in this encounter Results * US OB BPP W NON-STRESS (09/07/2023 11:29 AM EDT) Anatomical Region Laterality Modality Other 09/07/2023 11:2 9 AM EDT Narrative 09/07/2023 11:32 [place] [address] Ultrasound Report Signed Patient: VIANEY VERGARA MR#: [id number] : 1995 Acct:[id number] Age/Sex: 28 / F ADM Date: 09/07/23 Loc: [facility] 250-[address]: Kathy Perry D.O. Ordering Physician: Kathy Perry D.O. Date of Service: 09/07/23 Procedure(s): US OB BPP w non-stress Accession Number(s): [id number] cc: Kathy Perry D.O.; Physician,Non-Staff [place] [address] Patient Name: VIANEY VERGARA MRN: [id number] date: 1995 Sex: F Assigned Patient Location: [facility] Current Patient Location: [facility] Accession/Order Number: [id number] Exam Date: 09/07/2023 11:00 Report Date: 09/07/2023 11:29 At the request of: KATHY PERRY Procedure: US OB BPP w non-stress EXAMINATION: US OB BPP w non-stress HISTORY: Club foot of fetus COMPARISON: 08/25/2023 TECHNIQUE: Ultrasound biophysical profile was performed in the radiology department. non-reactive stress testing was performed by nursing staff in the birthing center. FINDINGS: BREATHING MOVEMENTS: 2 GROSS BODY MOVEMENTS: 2 TONE: 2 QUALITATIVE AMNIOTIC FLUID VOLUME: 2 PRESENTATION: CEPHALIC HEART RATE: 147.54 bpm AMNIOTIC FLUID VOLUME: 25.5 cm GESTATIONAL AGE: 37 weeks 2 days US/US OB BPP w non-stress IMPRESSION: Total biophysical profile score: 8 Electronically authenticated by: ELDER GONZALEZ Date: 09/07/2023 11:29 Dictated By: Elder Gonzalez M.D. Signed By: 09/07/23 1132 DD/ 1129 TD/TT: Service Aide: Procedure Note Radiology, Radiologist, - 09/07/2023 [place] [address] Ultrasound Report Signed Patient: VIANEY VERGARA MMR#: [id number] : 1995Acct:[id number] Age/Sex: 28 / FADM Date: 09/07/23 Loc: [facility] 250-[address]: Kathy Perry D.O. Ordering Physician: Kathy Perry D.O. Date of Service: 09/07/23 Procedure(s): US OB BPP w non-stress Accession Number(s): [id number] cc: Kathy Perry D.O.; Physician,Non-Staff [place] [id number] Patient Name: VIANEY VERGARA MRN: [id number] date: 1995 Sex: F Assigned Patient Location: [facility] Current Patient Location: [facility] Accession/Order Number: [id number] Exam Date: 09/07/2023 11:00 Report Date: 09/07/2023 11:29 At the request of: KATHY PERRY Procedure: US OB BPP w non-stress EXAMINATION: US OB BPP w non-stress HISTORY: Club foot of fetus COMPARISON: 08/25/2023 TECHNIQUE: Ultrasound biophysical profile was performed in the radiology department. non-reactive stress testing was performed by nursingstaff in the birthing center. FINDINGS: BREATHING MOVEMENTS: 2 GROSS BODY MOVEMENTS: 2 TONE: 2 QUALITATIVE AMNIOTIC FLUID VOLUME: 2 PRESENTATION: CEPHALIC HEART RATE: 147.54 bpm AMNIOTIC FLUID VOLUME: 25.5 cm GESTATIONAL AGE: 37 weeks 2 days US/US OB BPP w non-stress IMPRESSION: Total biophysical profile score: 8 Electronically authenticated by: ELDER GONZALEZ Date: 09/07/2023 11:29 Dictated By: Elder Gonzalez M.D. Signed By:09/07/23 1132 DD/ 1129 TD/TT: Service Aide: us Kathy Perry DO [facility] Final Result documented in this encounter Visit Diagnoses Not on filedocumented in this encounter
--- OUTSIDE RECORDS SUMMARY | 2024-12-04 13:47 | XMS_ITS | Encounter Summary ---
Author Organization [facility] Address [address] [place] [address] Care Team Providers Care Supervisor Briar Shop Name Role Phone Unavailable Primary Care Provider Unavailabl e Encounter Details Date Type Department Care Team (Late Contact Info) Description 08/17/2023 Clinisync Result Encounter [facility] External Department Unsolicited Kathy Perry, DO [address] [place], [place] [id number] Social History Tobacco Use Types Packs/Day Years [...] EST Office Visit [facility] [address] [place] [phone] Kathy Perry DO [address] [place] [address] documented as of this encounter Procedures Procedure Name Priority Date/Time Associated Diagnosis Comments US OB BPP W NON-STRESS 08/17/2023 11:26 AM EDT documented in this encounter Results * US OB BPP W NON-STRESS (08/17/2023 11:26 AM EDT) Anatomical Region Laterality Modality Other 08/17/2023 11:2 6 AM EDT Narrative 08/17/2023 11:29 [place] [address] Ultrasound Report Signed Patient: VIANEY VERGARA MR#: [id number] : 1995 Acct:[id number] Age/Sex: 28 / F ADM Date: 08/17/23 Loc: [facility] 250-[address]: Kathy Perry D.O. Ordering Physician: Kathy Perry D.O. Date of Service: 08/17/23 Procedure(s): US OB BPP w non-stress Accession Number(s): [id number] cc: Kathy Perry D.O.; Physician,Non-Staff [place] [address] Patient Name: VIANEY VERGARA MRN: [id number] date: 1995 Sex: F Assigned Patient Location: [facility] Current Patient Location: [facility] Accession/Order Number: [id number] Exam Date: 08/17/2023 10:18 Report Date: 08/17/2023 11:26 At the request of: KATHY PERRY Procedure: US OB BPP w non-stress EXAMINATION: US OB BPP w non-stress HISTORY:CLUB FOOT OF FETUS O35.HXX0 COMPARISON: No relevant comparison available. TECHNIQUE: Ultrasound biophysical profile was performed in the radiology department. BREATHING MOVEMENTS: 2 GROSS BODY MOVEMENTS: 2 TONE: 2 QUALITATIVE AMNIOTIC FLUID VOLUME: 2 PRESENTATION: CEPHALIC HEART RATE: 148.35 bpm AMNIOTIC FLUID VOLUME: 16.03 cm GESTATIONAL AGE: 240 Day US/US OB BPP w non-stress IMPRESSION: Total biophysical profile score: 8 Electronically authenticated by: ALVARADO OTERO Date: 08/17/2023 11:26 Dictated By: Alvarado Otero M.D. Signed By: 08/17/23 1129 DD/ 25 TD/TT: Marine Radio Installer And Servicer: Procedure Note Radiology, Radiologist, - 08/17/2023 [place] [address] Ultrasound Report Signed Patient: VIANEY VERGARA MMR#: [id number] : 1995Acct:[id number] Age/Sex: 28 / FADM Date: 08/17/23 Loc: [facility] 250-[address]: Kathy Perry D.O. Ordering Physician: Kathy Perry D.O. Date of Service: 08/17/23 Procedure(s): US OB BPP w non-stress Accession Number(s): [id number] cc: Kathy Perry D.O.; Physician,Non-Staff Gertrudis [place] [address] Patient Name: VIANEY VERGARA MRN: [facility]:[id number] date: 1995 Sex: F Assigned Patient Location: [facility] Current Patient Location: [facility] Accession/Order Number: [id number] Exam Date: 08/17/2023 10:18 Report Date: 08/17/2023 11:26 At the request of: KATHY PERRY Procedure: US OB BPP w non-stress EXAMINATION: US OB BPP w non-stress HISTORY:CLUB FOOT OF FETUS O35.HXX0 COMPARISON: No relevant comparison available. TECHNIQUE: Ultrasound biophysical profile was performed in the radiology department. BREATHING MOVEMENTS: 2 GROSS BODY MOVEMENTS: 2 TONE: 2 QUALITATIVE AMNIOTIC FLUID VOLUME: 2 PRESENTATION: CEPHALIC HEART RATE: 148.35 bpm AMNIOTIC FLUID VOLUME: 16.03 cm GESTATIONAL AGE: 89 Day US/US OB BPP w non-stress IMPRESSION: Total biophysical profile score: 8 Electronically authenticated by: ALVARADO OTERO Date: 08/17/2023 11:26 Dictated By: Alvarado Otero M.D. Signed By:08/17/23 1129 DD/ 25 TD/TT: Marine Radio Installer And Servicer: us Kathy Perry DO [facility] Final Result documented in this encounter Visit Diagnoses Not on filedocumented in this encounter
--- OUTSIDE RECORDS SUMMARY | 2024-12-04 13:47 | XMS_ITS | Clinical Summary ---
Author Organization [facility] Address [address] [place] [address] Care Team Providers Care Diamond Mounter Name Role Phone Unavailable Primary Care Provider Unavailabl e Allergies Active Allergy Reactions Criticality Noted Date Comments Bismuth Subsalicylate Hives 12/02/2020 Other Reaction(s): Other (See Comments) Bismuth-Containing Compounds Hives 016 Medications albuterol HFA 90 mcg/act inhaler INHALE 1-2 PUFFS BY MOUTH EVERY 4-6 HOURS NEEDED FOR COUGH, SHORTNESS OF BREATH, OR WHEEZING. 4 Active prochlorperazine (Compazine) 10 MG tablet Take 10 mg by mouth 2 (two) times a day as needed 5 Active ondansetron ODT (Zofran-ODT) 4 MG disintegrating tablet Take 4 mg by mouth every 8 (eight) hours if needed 5 Active etonogestrel-ethin yl estradiol (EluRyng) 0.12-0.015 MG/24HR vaginal ringIndications:6 weeks follow-up ([facility]),Encounte r for initial prescription of vaginal ring hormonal contraceptive INSERT 1 RING INTO THE VAGINA AND LEAVE IN FOR 3 WEEKS, THEN REMOVE FOR 1 WEEK 3 each 3 5 Active Active Problems Problem Noted Date Diagnosed Date 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 Smoker 08/16/2022 Encounters Date Type Department Care Team Description 11/22/2024 3:50 PM EDT Office Visit [facility] [address] [place] [address] [place] [address] Renate Jacobson, JACQUI Breast pain; Mass of right breast, unspecified quadrant 11/22/2024 Bamboo flowsheet [facility] [address] [place] [address] Renate Jacobson, JACQUI 09/21/2024 Refill [facility] [address] [place] [address] Alvarado Perry DO 6 weeks follow-up ([facility]); Encounter for initial prescription of vaginal ring hormonal contraceptive from Last 3 Months Family History Medical History Relation Name Comments Hypotension Mother Relation Name Status Comments Father Alive Mother Alive Social History Tobacco Use Types Packs/Day Years Used Date Smoking Tobacco: Every Day Cigarettes Started: 02/28/2007 Tobacco Cessation:Ready to Q uit: Not Asked; Counseling Given: Not Answered Alcohol Use Standard Drinks/Week Comments Yes 0 (1 standard drink = 0.6 oz pure alcohol) 1-2 drinks less than monthly in the past year Comments No Sex and Gender Information Value Date Recorded Sex Assigned at Not on file Legal Sex Female 11:16 PM EDT Gender Identity Not on file Sexual Orientation Not on file Last Filed Vital Signs Vital Sign Reading Time Taken Comments Blood Pressure 112/72 11/22/2024 3:54 PM EDT Pulse - - Temperature - - Respiratory Rate - - Oxygen Saturation - - Inhaled Oxygen Concentration - - Weight 88.9 kg (196 lb) 11/22/2024 3:54 PM EDT Height 152.4 cm (5') 09/15/2023 1:43 PM EDT Body Mass Index 38.28 09/15/2023 1:43 PM EDT Plan of Treatment Upcoming Encounters Date Type Department Care Team (Late st Contact Info) Description 04/23/2025 11:00 AM EST Office Visit [facility] [address] [facility] [place] [address] Alvarado Perry DO [address] [place] [address] Insurance [facility]
--- OUTSIDE RECORDS SUMMARY | 2024-12-04 13:47 | XMS_ITS | Encounter Summary ---
Author Organization [facility] Address [address] [place] [address] Care Team Providers Care Machine Builder Name Role Phone Unavailable Primary Care Provider Unavailabl e Encounter Details Date Type Department Care Team (Late Contact Info) Description 09/10/2023 Abstract [facility] [address] [place] [phone] Alvarado Perry DO [facility] [place], [facility] Social History Tobacco Use Types Packs/Day Years [...] Office Visit [facility] [address] [place] [address] Alvarado Perry DO [address] [place], [place] [id number] documented as of this encounter Visit Diagnoses Not on filedocumented in this encounter
--- OUTSIDE RECORDS SUMMARY | 2024-12-04 13:47 | XMS_ITS | Encounter Summary ---
Author Organization [facility] Address [address] [place] [address] Care Team Providers Care Teacher Home Therapy Name Role Phone Unavailable Primary Care Provider Unavailabl e Encounter Details Date Type Department Care Team (Late Contact Info) Description 08/04/2023 Clinisync Result Encounter [facility] External Department Unsolicited Kathy Perry, DO [address] [place], [place] [phone] Social History Tobacco Use Types Packs/Day Years [...] EST Office Visit [facility] [address] [place] [address] Kathy Perry DO [address] [place] [address] documented as of this encounter Procedures Procedure Name Priority Date/Time Associated Diagnosis Comments US OB BPP W NON-STRESS 08/04/2023 1:38 PM EDT documented in this encounter Results * US OB BPP W NON-STRESS (08/04/2023 1:38 PM EDT) Anatomical Region Laterality Modality Other 08/04/2023 1:38 PM EDT Narrative 08/04/2023 1:40 [place] [address] Ultrasound Report Signed Patient: VIANEY VERGARA MR#: [id number] : 1995 Acct:[id number] Age/Sex: 28 / F ADM Date: 08/04/23 Loc: [facility] 250-[address]: Kathy Perry D.O. Ordering Physician: Kathy Perry D.O. Date of Service: 08/04/23 Procedure(s): US OB BPP w non-stress Accession Number(s): [id number] cc: Kathy Perry D.O.; Physician,Non-Staff Gertrudis [place] [address] Patient Name: VIANEY VERGARA MRN: [facility]:[id number] date: 1995 Sex: F Assigned Patient Location: [facility] Current Patient Location: [facility] Accession/Order Number: [id number] Exam Date: 08/04/2023 12:50 Report Date: 08/04/2023 13:38 At the request of: KATHY PERRY Procedure: US OB BPP w non-stress EXAMINATION: US OB BPP w non-stress HISTORY: CLUB FOOT OF FETUS O36.HXX0 COMPARISON: Ultrasound OB follow-up 06/14/2023 TECHNIQUE: Ultrasound biophysical profile was performed in the radiology department. BREATHING MOVEMENTS: 2.0 GROSS BODY MOVEMENTS: 2.0 TONE: 2.0 QUALITATIVE AMNIOTIC FLUID VOLUME: 2.0 PRESENTATION: CEPHALIC HEART RATE: 133.7 bpm bpm. AMNIOTIC FLUID VOLUME: 19.1 cm GESTATIONAL AGE: 32 weeks 3 days CONCLUSION: Total biophysical profile score 8.0. Electronically authenticated by: ALVARADO OTERO Date: 08/04/2023 13:38 Dictated By: Alvarado Otero M.D. Signed By: 08/04/23 134 DD/ 37 TD/TT: Steam Box Tender: Procedure Note Radiology, Radiologist, - 08/04/2023 [place] [address] Ultrasound Report Signed Patient: VIANEY VERGARA MMR#: [id number] : 1995Acct:[id number] Age/Sex: 28 / FADM Date: 08/04/23 Loc: [facility] 250-[address]: Kathy Perry D.O. Ordering Physician: Kathy Perry D.O. Date of Service: 08/04/23 Procedure(s): US OB BPP w non-stress Accession Number(s): [id number] cc: Kathy Perry D.O.; Physician,Non-Staff Gertrudis The [place] [address] Patient Name: VIANEY VERGARA MRN: [facility]:[id number] date: 1995 Sex: F Assigned Patient Location: [facility] Current Patient Location: [facility] Accession/Order Number: [id number] Exam Date: 08/04/2023 12:50 Report Date: 08/04/2023 13:38 At the request of: KATHY PERRY Procedure: US OB BPP w non-stress EXAMINATION: US OB BPP w non-stress HISTORY: CLUB FOOT OF FETUS O36.HXX0 COMPARISON: Ultrasound OB follow-up 06/14/2023 TECHNIQUE: Ultrasound biophysical profile was performed in the radiology department. BREATHING MOVEMENTS: 2.0 GROSS BODY MOVEMENTS: 2.0 TONE: 2.0 QUALITATIVE AMNIOTIC FLUID VOLUME: 2.0 PRESENTATION: CEPHALIC HEART RATE: 133.7 bpm bpm. AMNIOTIC FLUID VOLUME: 19.1 cm GESTATIONAL AGE: 32 weeks 3 days CONCLUSION: Total biophysical profile score 8.0. Electronically authenticated by: ALVARADO OTERO Date: 08/04/2023 13:38 Dictated By: Alvarado Otero M.D. Signed By:08/04/23 134 DD/ 37 TD/TT: Steam Box Tender: us Kathy Perry DO [facility] Final Result documented in this encounter Visit Diagnoses Not on filedocumented in this encounter
--- OUTSIDE RECORDS SUMMARY | 2024-12-04 13:47 | XMS_ITS | Encounter Summary ---
Author Organization [facility] Address [address] [place] [address] Care Team Providers Care Community Education Coordinator Name Role Phone Unavailable Primary Care Provider Unavailabl e Encounter Details Date Type Department Care Team (Late Contact Info) Description 07/12/2023 Abstract [facility] [address] [facility] [place] [phone] Stacey Sullivan LPN [address] [facility] [place] [facility] Social History Tobacco Use Types Packs/Day Years [...] AM EST Office Visit [facility] [address] [facility] [place] [address] Alvarado Perry DO [address] [facility] [place] [address] documented as of this encounter Visit Diagnoses Not on filedocumented in this encounter
--- OUTSIDE RECORDS SUMMARY | 2024-12-04 13:47 | XMS_ITS | Encounter Summary ---
Author Organization [facility] Address [address] [address] Care Team Providers Care Propeller Engineer Name Role Phone Unavailable Primary Care Provider Unavailabl e Encounter Details Date Type Department Care Team (Late st Contact Info) Description 05/12/2023 Clinisync Result Encounter [facility] External Department Unsolicited Kathy Perry, [address] [place] [address] Social History Tobacco Use Types Packs/Day Years [...] EST Office Visit [facility] [address] [place] [address] Kathy Perry DO [address] [place] [address] documented as of this encounter Procedures Procedure Name Priority Date/Time Associated Diagnosis Comments US OB ANATOMY 05/12/2023 11:05 AM EDT documented in this encounter Results * US OB ANATOMY (05/12/2023 11:05 AM EDT) Anatomical Region Laterality Modality Other 05/12/2023 11:0 5 AM EDT Narrative 05/12/2023 11:08 AM EDT [address] [address] Ultrasound Report Signed Patient: VIANEY VERGARA MR#: [id number] : 1995 Acct:[id number] Age/Sex: 28 / F ADM Date: 05/12/23 Loc: [facility] Attending Dr: Kathy Perry D.O. Ordering Physician: Kathy Perry D.O. Date of Service: 05/12/23 Procedure(s): US OB anatomy Accession Number(s): [id number] cc: Kathy Perry D.O.; Physician,Non-Staff Gertrudis [place] [id number] Patient Name: VIANEY VERGARA MRN: [facility]:[id number] date: 1995 Sex: F Assigned [facility] Current [facility] Accession/Order Number: [id number] Exam Date: 05/12/2023 09:18 Report Date: 05/12/2023 11:05 At the request of: AKTHY PERRY Procedure: US OB anatomy EXAMINATION: US OB anatomy, US OB cervical length HISTORY: anatomic survey Z36.89 COMPARISON: No relevant comparison available. TECHNIQUE: Transabdominal sonographic examination was performed for obstetrical and evaluation. FINDINGS: Number: 1 Heart Rate: 141.0 bpm H.B. /min Amniotic Fluid Volume: Subjectively normal Placental Location: Posterior with lower margin 3.6 cm from os. Cervix Length: 2.6 cm, closed. ANATOMY: Normal Structures -cerebellum, choroid plexus, cisterna magna, lateral cerebral ventricles, orbits, midline falx, hard palate, stomach, kidneys, bladder, umbilical cord insertion into abdomen, three-vessel cord, cervical spine, thoracic spine, lumbar spine, sacral spine, right upper extremity, left upper extremity, right lower extremity, left lower extremity. SUBOPTIMALLY SEEN: Four-chamber heart and cardiac outflow tracts, nasal bones, feet and ankles. ABNORMALITIES: None BIOMETRY: BPD: 4.8 cm 20 weeks 4 days ; 53% HC: 18.2 cm 20 weeks 4 days; 49% AC: 15.6 cm 20 weeks 5 days; 55% FL: 3.2 cm 19 weeks 6 days; 24% EFW:350.2 grams; 43% FL/AC: 20.4 FL/BPD: 66.3 HC/AC: 1.2 GESTATIONAL AGE: Age by EDC: 20 weeks 3 days LASHELL by EDC: 09/26/2023 Age by current US: 20 weeks 3 days LASHELL by current US: 09/26/2023 US/US OB anatomy IMPRESSION: 1. Single live intrauterine with growth detailed above. 2. Short cervix 2.6 cm in length. 3. Inadequate evaluation of the four-chamber heart, cardiac outflow tracts, nasal bones, and the feet and ankles due to patient body habitus and position. Ankles were crossed during entire time of the study; clubfoot cannot be excluded. Electronically authenticated by: ALVARADO OTERO Date: 05/12/2023 11:05 Dictated By: Alvarado Otero M.D. Signed By: 05/12/23 1108 DD/ 1105 TD/TT: Perch Mender: Procedure Note Radiology, Radiologist, MD - 05/12/2023 [place] [address] Ultrasound Report Signed Patient: VIANEY VERGARA MMR#: [id number] : 1995Acct:[id number] Age/Sex: Date: 05/12/23 Loc: [facility] Attending Dr: Kathy Perry D.O. Ordering Physician: Kathy Perry D.O. Date of Service: 05/12/23 Procedure(s): US OB anatomy Accession Number(s): [id number] cc: Kathy Perry D.O.; Physician,Non-Staff Gertrudis The [place] [id number] Patient Name: VIANEY VERGARA MRN: [id number] date: 1995 Sex: F Assigned Patient Location: [facility] Current Patient Location: [facility] Accession/Order Number: [id number] Exam Date: 05/12/2023 09:18 Report Date: 05/12/2023 11:05 At the request of: KATHY PERRY Procedure: US OB anatomy EXAMINATION: US OB anatomy, US OB cervical length HISTORY: anatomic survey Z36.89 COMPARISON: No relevant comparison available. TECHNIQUE: Transabdominal sonographic examination was performed for obstetrical and evaluation. FINDINGS: Number: 1 Heart Rate: 141.0 bpm H.B. /min Amniotic Fluid Volume: Subjectively normal Placental Location: Posterior with lower margin 3.6 cm from os. Cervix Length: 2.6 cm, closed. ANATOMY: Normal Structures -cerebellum, choroid plexus, cisterna magna, lateral cerebral ventricles, orbits, midline falx, hard palate, stomach, kidneys, bladder, umbilical cord insertion into abdomen, three-vessel cord,cervical spine, thoracic spine, lumbar spine, sacral spine, right upper extremity,left upper extremity, right lower extremity, left lower extremity. SUBOPTIMALLY SEEN: Four-chamber heart and cardiac outflow tracts, nasalbones, feet and ankles. ABNORMALITIES: None BIOMETRY: BPD: 4.8 cm 20 weeks 4 days ; 53% HC: 18.2 cm 20 weeks 4 days; 49% AC: 15.6 cm 20 weeks 5 days; 55% FL: 3.2 cm 19 weeks 6 days; 24% EFW:350.2 grams; 43% FL/AC: 20.4 FL/BPD: 66.3 HC/AC: 1.2 GESTATIONAL AGE: Age by EDC: 20 weeks 3 days LASHELL by EDC: 09/26/2023 Age by current US: 20 weeks 3 days LASHELL by current US: 09/26/2023 US/US OB anatomy IMPRESSION: 1. Single live intrauterine with growth detailed above. 2. Short cervix 2.6 cm in length. 3. Inadequate evaluation of the four-chamber heart, cardiac outflowtracts, nasal bones, and the feet and ankles due to patient body habitus and position. Ankles were crossed during entire time of the study; clubfootcannot be excluded. Electronically authenticated by: ALVARADO OTERO Date: 05/12/2023 11:05 Dictated By: Alvarado Otero M.D. Signed By:05/12/23 1108 DD/ 1105 TD/TT: Perch Mender: us Kathy Perry DO [facility] Final Result documented in this encounter Visit Diagnoses Not on filedocumented in this encounter
--- OUTSIDE RECORDS SUMMARY | 2024-12-04 13:47 | XMS_ITS | Encounter Summary ---
Author Organization [facility] Address [address] [place] [address] Care Team Providers Care Building Custodian Name Role Phone Unavailable Primary Care Provider Unavailabl e Encounter Details Date Type Department Care Team (Late Contact Info) Description 09/06/2023 Abstract [facility] [address] [place] [phone] Alvarado Perry DO [facility] [place], [id number] Social History Tobacco Use Types Packs/Day Years [...] Office Visit [facility] [address] [place] [address] Alvarado Perry DO [address] [place], [place] [phone] documented as of this encounter Visit Diagnoses Not on filedocumented in this encounter
--- OUTSIDE RECORDS SUMMARY | 2024-12-04 13:47 | XMS_ITS | Encounter Summary ---
Author Organization [facility] Address [address] [place] [address] Care Team Providers Care Fact Checker Name Role Phone Unavailable Primary Care Provider Unavailabl e Encounter Details Date Type Department Care Team (Late Contact Info) Description 08/11/2023 Abstract [facility] [address] [facility] [place] [address] Archana Sebastian LPN [address] [place] [address] Social History Tobacco Use Types Packs/Day Years [...] AM EST Office Visit [facility] [address] [facility] [place] [address] Alvarado Perry DO [address] [facility] [address] [place], [facility]11 documented as of this encounter Visit Diagnoses Not on filedocumented in this encounter
--- OUTSIDE RECORDS SUMMARY | 2024-12-04 13:47 | XMS_ITS | Patient Health Record ---
Author Organization [facility] [place] Address [address] [place] [address] Care Team Providers Care Curing Oven Attendant Name Role Phone None, Unknown or Primary Care Provider Unavailab le Reason For Referral No Information Immunizations Vaccine Route Administration Date Status Comme nts DTaP (Daptacel) Unknown 1995 Pending 95 DTaP (Daptacel) Unknown 1995 Pending 95 DTaP (Daptacel) Unknown 09/27/1996 Pending 09/27/96 DTaP (Daptacel) Unknown 07/25/1997 Pending 07/25/97 DTaP (Daptacel) Unknown 10/21/2000 Pending 10/21/00 Flu, FluMist 2-49 nasal spray ([id number]) Nasal 02/04/2010 Pending [id number] 10:39A M Hep B, Adult, 3 Dose Unknown 1995 Pending 01/29 Hep B, Adult, 3 Dose Unknown 1995 Pending 04/28 Hep B, Adult, 3 Dose Unknown 07/25/1997 Pending 06/29 HIB (ActHIB) Unknown 1995 Pending 95 HIB (ActHIB) Unknown 1995 Pending 95 HIB (ActHIB) Unknown 09/27/1996 Pending 09/27/96 HIB (ActHIB) Unknown 07/25/1997 Pending 07/25/97 HPV (Gardasil) Intramuscular 04/23/2009 Pending [id number] 10 04:42PM HPV (Gardasil) Intramuscular 12/23/2009 Pending [id number] 10 03:36PM HPV (Gardasil) Intramuscular 04/07/2011 Pending [id number] 12 11:38AM Meningococcal (Menactra) Intramuscular 12/23/2009 Pending [id number] 03:36PM MMR Unknown 09/27/1996 Pending 09/27/96 MMR Unknown 10/21/2000 Pending 10/21/00 Polio Virus, IPV Unknown Pending Polio Virus, IPV Unknown 1995 Pending 95 Polio Virus, IPV Unknown 1995 Pending 95 Polio Virus, IPV Unknown 09/27/1996 Pending 09/27/96 Tdap Intramuscular 04/07/2011 Pending [id number] 1 1:37AM Plan Of Treatment No Information Insurance Providers Payer Name Payer Address Payer Phone Subscriber Number Group Number Insured Name Patient Relationship to Insured Coverage Start Date Coverage End Date [employer] PPO PLUS LOCAL PLAN [address] [place] [phone] [id number] Vianey Kramer Self - patient is the insured
--- OUTSIDE RECORDS SUMMARY | 2024-12-04 13:47 | XMS_ITS | Encounter Summary ---
Author Organization [facility] Address [address] [place] [place] [address] Care Team Providers Care Rn Bariatric Name Role Phone Unavailable Primary Care Provider Unavailabl e Encounter Details Date Type Department Care Team (Late Contact Info) Description 08/25/2023 Clinisync Result Encounter [facility] External Department Unsolicited Kathy Perry, DO [address] [place], [place] [phone] Social History Tobacco Use Types Packs/Day Years [...] EST Office Visit [facility] [address] [place] [address] Kathy Perry DO [address] [place] [address] documented as of this encounter Procedures Procedure Name Priority Date/Time Associated Diagnosis Comments US OB BPP W NON-STRESS 08/25/2023 10:54 AM EDT documented in this encounter Results * US OB BPP W NON-STRESS (08/25/2023 10:54 AM EDT) Anatomical Region Laterality Modality Other 08/25/2023 10:5 4 AM EDT Narrative 08/25/2023 10:56 [place] [address] Ultrasound Report Signed Patient: VIANEY VERGARA MR#: [id number] : 1995 Acct:[id number] Age/Sex: 28 / F ADM Date: 08/25/23 Loc: [facility] 250-[address]: Kathy Perry D.O. Ordering Physician: Kathy Perry D.O. Date of Service: 08/25/23 Procedure(s): US OB BPP w non-stress Accession Number(s): [id number] cc: Kathy Perry D.O.; Physician,Non-Staff M.[place] [address] Patient Name: VIANEY VERGARA MRN: [id number] date: 1995 Sex: F Assigned Patient Location: [facility] Current Patient Location: [facility] Accession/Order Number: [id number] Exam Date: 08/25/2023 10:15 Report Date: 08/25/2023 10:54 At the request of: KATHY PERRY Procedure: US OB BPP w non-stress EXAMINATION: US OB BPP w non-stress HISTORY: Club foot of fetus O35.Hxx0 COMPARISON: No relevant comparison available. TECHNIQUE: Ultrasound biophysical profile was performed in the radiology department. non-reactive stress testing was performed by nursing staff in the birthing center. FINDINGS: BREATHING MOVEMENTS: 2 GROSS BODY MOVEMENTS: 2 TONE: 2 QUALITATIVE AMNIOTIC FLUID VOLUME: 2 PRESENTATION: CEPHALIC HEART RATE: 135 bpm AMNIOTIC FLUID VOLUME: 14.7 cm GESTATIONAL AGE: 35 weeks 3 days US/US OB BPP w non-stress IMPRESSION: Total biophysical profile score: 8 Electronically authenticated by: ELDER GONZALEZ Date: 08/25/2023 10:54 Dictated By: Elder Gonzalez M.D. Signed By: 08/25/23 1056 DD/ 53 TD/TT: Silo Worker: Procedure Note Radiology, Radiologist, - 08/25/2023 [place] [address] Ultrasound Report Signed Patient: VIANEY VERGARA MMR#: [id number] : 1995Acct:[id number] Age/Sex: 28 / FADM Date: 08/25/23 Loc: [facility] 250-[address]: Kathy Perry D.O. Ordering Physician: Kathy Perry D.O. Date of Service: 08/25/23 Procedure(s): US OB BPP w non-stress Accession Number(s): [id number] cc: Kathy Perry D.O.; Physician,Non-Staff Gertrudis The [place] [address] Patient Name: VIANEY VERGARA MRN: [id number] date: 1995 Sex: F Assigned Patient Location: [facility] Current Patient Location: [facility] Accession/Order Number: [id number] Exam Date: 08/25/2023 10:15 Report Date: 08/25/2023 10:54 At the request of: KATHY PERRY Procedure: US OB BPP w non-stress EXAMINATION: US OB BPP w non-stress HISTORY: Club foot of fetus O35.Hxx0 COMPARISON: No relevant comparison available. TECHNIQUE: Ultrasound biophysical profile was performed in the radiology department. non-reactive stress testing was performed by nursingstaff in the birthing center. FINDINGS: BREATHING MOVEMENTS: 2 GROSS BODY MOVEMENTS: 2 TONE: 2 QUALITATIVE AMNIOTIC FLUID VOLUME: 2 PRESENTATION: CEPHALIC HEART RATE: 135 bpm AMNIOTIC FLUID VOLUME: 14.7 cm GESTATIONAL AGE: 35 weeks 3 days US/US OB BPP w non-stress IMPRESSION: Total biophysical profile score: 8 Electronically authenticated by: ELDER GONZALEZ Date: 08/25/2023 10:54 Dictated By: Elder Gonzalez M.D. Signed By:08/25/23 1056 DD/ 1054 TD/TT: Silo Worker: us Kathy Perry DO [facility] Final Result documented in this encounter Visit Diagnoses Not on filedocumented in this encounter
--- OUTSIDE RECORDS SUMMARY | 2024-12-04 13:47 | XMS_ITS | Encounter Summary ---
Author Organization [facility] Address [address] [place] [address] Care Team Providers Care Glass Loading Equipment Tender Name Role Phone Unavailable Primary Care Provider Unavailabl e Encounter Details Date Type Department Care Team (Late Contact Info) Description 07/12/2023 Abstract [facility] [address] [place] [phone] Stacey Sullivan LPN [address] [facility] [place] [facility] Social History Tobacco Use Types Packs/Day Years [...] AM EST Office Visit [facility] [address] [place] [address] Alvarado Perry DO [address] [facility] [place] [address] documented as of this encounter Visit Diagnoses Not on filedocumented in this encounter
--- OUTSIDE RECORDS SUMMARY | 2024-12-04 13:47 | XMS_ITS | Encounter Summary ---
Author Organization [facility] Address [address] [place] [address] Care Team Providers Care Tax Investigator Name Role Phone Unavailable Primary Care Provider Unavailabl e Encounter Details Date Type Department Care Team (Late st Contact Info) Description 05/12/2023 Clinisync Result Encounter [facility] External Department Unsolicited Kathy Perry, [address] [place] [address] Social History Tobacco Use Types Packs/Day Years [...] EST Office Visit [facility] [place] [facility] [address] [place] [phone] Kathy Perry DO [address] [place] [address] documented as of this encounter Procedures Procedure Name Priority Date/Time Associated Diagnosis Comments US OB CERVICAL LENGTH 05/12/2023 11:05 AM EDT documented in this encounter Results * US OB CERVICAL LENGTH (05/12/2023 11:05 AM EDT) Anatomical Region Laterality Modality Other 05/12/2023 11:0 5 AM EDT Narrative 05/12/2023 11:08 AM EDT [address] [address] Ultrasound Report Signed Patient: VIANEY VERGARA MR#: [id number] : 1995 Acct:[id number] Age/Sex: 28 / F ADM Date: 05/12/23 Loc: [facility] Attending Dr: Kathy Perry D.O. Ordering Physician: Kathy Perry D.O. Date of Service: 05/12/23 Procedure(s): US OB cervical length Accession Number(s): [id number] cc: Kathy Perry D.O.; Physician,Non-Staff Gertrudis [place] [address] Patient Name: VIANEY VERGARA MRN: [id number] date: 1995 Sex: F Assigned Patient Location: [facility] Current Patient Location: [facility] Accession/Order Number: [id number] Exam Date: 05/12/2023 09:18 Report Date: 05/12/2023 11:05 At the request of: KATHY PERRY Procedure: US OB cervical length EXAMINATION: US OB anatomy, US OB cervical [...] LASHELL by current US: 09/26/2023 US/US OB cervical length IMPRESSION: 1. Single live intrauterine with growth detailed above. 2. Short cervix 2.6 cm in length. 3. Inadequate evaluation of the four-chamber heart, cardiac outflow tracts, nasal bones, and the feet and ankles due to patient body habitus and position. Ankles were crossed during entire time of the study; clubfoot cannot be excluded. Electronically authenticated by: CR OTERO Date: 05/12/2023 11:05 Dictated By: Cr Otero M.D. Signed By: 05/12/23 1108 DD/ 1105 TD/TT: Summer Clerk: Procedure Note Radiology, Radiologist, MD - 05/12/2023 [place] [address] Ultrasound Report Signed Patient: VIANEY VERGARA MMR#: [id number] : 1995Acct:[id number] Age/Sex: Date: 05/12/23 Loc: [facility] Attending Dr: Kathy Perry D.O. Ordering Physician: Kathy Perry D.O. Date of Service: 05/12/23 Procedure(s): US OB cervical length Accession Number(s): [id number] cc: Kathy Perry D.O.; Physician,Non-Staff Gertrudis The [place] [id number] Patient Name: VIANEY VERGARA MRN: [id number] date: 1995 Sex: F Assigned Patient Location: [facility] Current Patient Location: [facility] Accession/Order Number: [id number] Exam Date: 05/12/2023 09:18 Report Date: 05/12/2023 11:05 At the request of: KATHY PERRY Procedure: US OB cervical length EXAMINATION: US OB anatomy, US OB cervical [...] LASHELL by current US: 09/26/2023 US/US OB cervical length IMPRESSION: 1. Single live intrauterine with growth detailed above. 2. Short cervix 2.6 cm in length. 3. Inadequate evaluation of the four-chamber heart, cardiac outflowtracts, nasal bones, and the feet and ankles due to patient body habitus and position. Ankles were crossed during entire time of the study; clubfootcannot be excluded. Electronically authenticated by: CR OTERO Date: 05/12/2023 11:05 Dictated By: Cr Otero M.D. Signed By:05/12/23 1108 DD/ 1105 TD/TT: Summer Clerk: us Kathy Costao DO [facility] Final Result documented in this encounter Visit Diagnoses Not on filedocumented in this encounter
--- OUTSIDE RECORDS SUMMARY | 2024-12-04 13:47 | XMS_ITS | Encounter Summary ---
Author Organization [facility] Address [address] [place] [address] Care Team Providers Care Sorter/Assay Tech Name Role Phone Unavailable Primary Care Provider Unavailabl e Encounter Details Date Type Department Care Team (Late Contact Info) Description 11/22/2024 Bamboo flowsheet [facility] Brianna HODGES [address] [place] [address] Renate Jacobson, JACQUI [address] [place] [phone] Social History Tobacco Use Types Packs/Day Years [...] 11:00 AM EST Office Visit [facility] Brianna HODGES [address] [place] [address] Alvarado Perry DO [address] [place], [place] [phone] documented as of this encounter Visit Diagnoses Not on filedocumented in this encounter
--- OUTSIDE RECORDS SUMMARY | 2024-12-04 13:47 | XMS_ITS | Encounter Summary ---
Author Organization [facility] Address [address] [place] [address] Care Team Providers Care Silicator Name Role Phone Unavailable Primary Care Provider Unavailabl e Encounter Details Date Type Department Care Team (Late Contact Info) Description 05/04/2024 Orders Only [facility]leine [facility]OD[facility]ES [address] [email or web address] [place] [phone] Stacey Sullivan LPN [address] [facility] [place] [address] Social History Tobacco Use Types Packs/Day Years [...] EST Office Visit [facility] Brianna HODGES [address] [email or web address] [place] [address] Alvarado Perry DO [address] [place], [place] [phone] documented as of this encounter Procedures Procedure Name Priority Date/Time Associated Diagnosis Comments PAP SMEAR Routine 04/17/2024 12:00 AM EST documented in this encounter Results * Pap Smear (04/17/2024 12:00 AM EST) Swab Cervical swab / Unknown us Vicky Nurse [facility] LAB CYTOLOGY ORDERABLES Final Result EXTERNAL LAB documented in this encounter Visit Diagnoses Not on filedocumented in this encounter
--- OUTSIDE RECORDS SUMMARY | 2024-12-04 13:48 | XMS_ITS | Encounter Summary ---
Author Organization [facility] Address [address] [place] [address] Care Team Providers Care Vegetable Cook Name Role Phone Unavailable Primary Care Provider Unavailabl e Encounter Details Date Type Department Care Team (Late st Contact Info) Description 06/14/2023 Clinisync Result Encounter [facility] External Department Unsolicited Kathy Perry, DO [address] [place], [place] [phone] Social History Tobacco Use Types Packs/Day Years [...] Description 04/23/2025 11:00 AM EST Office Visit [facility] [address] [place] [address] Kathy Perry DO [address] [place] [address] documented as of this encounter Procedures Procedure Name Priority Date/Time Associated Diagnosis Comments US OB FOLLOW UP 06/14/2023 10:45 AM EDT documented in this encounter Results * US OB FOLLOW UP (06/14/2023 10:45 AM EDT) Anatomical Region Laterality Modality Radiographic Billie ging 06/14/2023 10:4 5 AM EDT Narrative 06/14/2023 10:47 AM EDT [address] [address] Ultrasound Report Signed Patient: VIANEY VERGARA MR#: [id number] : 1995 Acct:[id number] Age/Sex: 28 / F ADM Date: 06/14/23 Loc: [facility] Attending Dr: Kathy Perry D.O. Ordering Physician: Kathy Perry D.O. Date of Service: 06/14/23 Procedure(s): US OB follow up Accession Number(s): [id number] cc: Kathy Perry D.O.; Physician,Non-Staff Gertrudis [address] [address] Patient Name: VIANEY VERGARA MRN: [id number] date: 1995 Sex: F Assigned Patient Location: [facility] Current Patient Location: [facility] Accession/Order Number: [id number] Exam Date: 06/14/2023 08:46 Report Date: 06/14/2023 10:45 At the request of: KATHY PERRY Procedure: US OB follow up EXAMINATION: US OB follow up HISTORY: INCOMPLETE ANATOMY FOLLOW UP COMPARISON: 05/12/2023 FINDINGS: position: Cephalic presentation, longitudinal lie Heart rate: 144 bpm Normal observed anatomy: Four-chamber heart, RVOT, LVOT, nasal bone Abnormal anatomy: Left clubfoot Clinical age: 25 weeks 1 day Clinical LASHELL: 09/26/2023 US/US OB follow up IMPRESSION: Left clubfoot. Further evaluation is recommended Electronically authenticated by: ELDER GONZALEZ Date: 06/14/2023 10:45 Dictated By: Elder Gonzalez M.D. Signed By: 06/14/23 1047 DD/ 1045 TD/TT: Keycase Assembler: Procedure Note Radiology, Radiologist, - 06/14/2023 The [place] [id number] Ultrasound Report Signed Patient: VIANEY VERGARA MMR#: [id number] : 1995Acct:[id number] Age/Sex: 28 / FADM Date: 06/14/23 Loc: [facility] Attending Dr: Kathy Perry D.O. Ordering Physician: Kathy Perry D.O. Date of Service: 06/14/23 Procedure(s): US OB follow up Accession Number(s): [id number] cc: Kathy Perry D.O.; Physician,Non-Staff Gertrudis The [place] [id number] Patient Name: VIANEY VERGARA MRN: [id number] date: 1995 Sex: F Assigned Patient Location: [facility] Current Patient Location: [facility] Accession/Order Number: [id number] Exam Date: 06/14/2023 08:46 Report Date: 06/14/2023 10:45 At the request of: KATHY PERRY Procedure: US OB follow up EXAMINATION: US OB follow up HISTORY: INCOMPLETE ANATOMY FOLLOW UP COMPARISON: 05/12/2023 FINDINGS: position: Cephalic presentation, longitudinal lie Heart rate: 144 bpm Normal observed anatomy: Four-chamber heart, RVOT, LVOT, nasal bone Abnormal anatomy: Left clubfoot Clinical age: 25 weeks 1 day Clinical LASHELL: 09/26/2023 US/US OB follow up IMPRESSION: Left clubfoot. Further evaluation is recommended Electronically authenticated by: ELDER GONZALEZ Date: 06/14/2023 10:45 Dictated By: Elder Gonzalez M.D. Signed By:06/14/23 1047 DD/ 1045 TD/TT: Keycase Assembler: us Kathy Perry DO IMG XR PROCEDURES Final Result documented in this encounter Visit Diagnoses Not on filedocumented in this encounter
--- OUTSIDE RECORDS SUMMARY | 2024-12-04 13:48 | XMS_ITS | Encounter Summary ---
Author Organization [facility] Address [address] [place] [address] Care Team Providers Care Church Supervisor Name Role Phone Unavailable Primary Care Provider Unavailabl e Encounter Details Date Type Department Care Team (Late st Contact Info) Description 02/17/2023 Clinisync Result Encounter [facility] External Department Unsolicited Kathy Perry, DO [address] [place], [place] [phone] Social History Tobacco Use Types Packs/Day Years [...] EST Office Visit [facility] [place] [facility] [address] [facility] [address] [place] [address] Kathy Perry DO [address] [place] [address] documented as of this encounter Procedures Procedure Name Priority Date/Time Associated Diagnosis Comments US OB TRANSVAGINAL 02/17/2023 3: 37 PM EST documented in this encounter Results * US OB TRANSVAGINAL (02/17/2023 3:37 PM EST) Anatomical Region Laterality Modality Other 02/17/2023 3:37 PM EST Narrative 02/17/2023 3:39 PM EST [address] [address] Ultrasound Report Signed Patient: VIANEY VERGARA MR#: [id number] : 1995 Acct:[id number] Age/Sex: 27 / F ADM Date: 02/17/23 Loc: US Attending Dr: Kathy Perry D.O. Ordering Physician: Kathy Perry D.O. Date of Service: 02/17/23 Procedure(s): US OB transvaginal Accession Number(s): [id number] cc: Kathy Perry D.O.; Physician,Non-Staff Gertrudis The [address] [address] Patient Name: VIANEY VERGARA MRN: [id number] date: 1995 Sex: F Assigned Patient Location: US Current Patient Location: US Accession/Order Number: [id number] Exam Date: 02/17/2023 13:05 Report Date: 02/17/2023 15:37 At the request of: KATHY PERRY Procedure: US OB transvaginal EXAMINATION: US OB transvaginal HISTORY: MISSED MENSES COMPARISON: No relevant comparison available. FINDINGS: GESTATIONAL SAC: Present and normal appearing. YOLK SAC: Present and normal appearing. POLE: Present and normal appearing. CARDIAC: Present. UTERUS: Normal size and appearance. OVARIES: Right: Normal. Left: Normal. CERVIX: 3.3 cm in length and closed. CUL-DE-SAC: Normal. OTHER: None. AGE BY LMP: 8 weeks 3 days LASHELL BY LMP: 09/26/2023 AGE BY US CRL: 8 weeks 2 days LASHELL BY US CRL: 09/27/2023 US/US OB transvaginal IMPRESSION: 1. Single live intrauterine . Electronically authenticated by: ALVARADO OTERO Date: 02/17/2023 15:37 Dictated By: Alvarado Otero M.D. Signed By: 02/17/23 1539 DD/ 1537 TD/TT: Elementary Education Tutor: Procedure Note Radiology, Radiologist, MD - 02/17/2023 [place] [address] Ultrasound Report Signed Patient: VIANEY VERGARA MMR#: [id number] : 1995Acct:[id number] Age/Sex: 27 / FADM Date: 02/17/23 Loc: US Attending Dr: Kathy Perry D.O. Ordering Physician: Kathy Perry D.O. Date of Service: 02/17/23 Procedure(s): US OB transvaginal Accession Number(s): [id number] cc: Kathy Perry D.O.; Physician,Non-Staff Gertrudsi The [place] [address] Patient Name: VIANEY VERGARA MRN: [id number] date: 1995 Sex: F Assigned Patient Location: US Current Patient Location: US Accession/Order Number: [id number] Exam Date: 02/17/2023 13:05 Report Date: 02/17/2023 15:37 At the request of: KATHY PERRY Procedure: US OB transvaginal EXAMINATION: US OB transvaginal HISTORY: MISSED MENSES COMPARISON: No relevant comparison available. FINDINGS: GESTATIONAL SAC: Present and normal appearing. YOLK SAC: Present and normal appearing. POLE: Present and normal appearing. CARDIAC: Present. UTERUS: Normal size and appearance. OVARIES: Right: Normal. Left: Normal. CERVIX: 3.3 cm in length and closed. CUL-DE-SAC: Normal. OTHER: None. AGE BY LMP: 8 weeks 3 days LASHELL BY LMP: 09/26/2023 AGE BY US CRL: 8 weeks 2 days LASHELL BY US CRL: 09/27/2023 US/US OB transvaginal IMPRESSION: 1. Single live intrauterine . Electronically authenticated by: ALVARADO OTERO Date: 02/17/2023 15:37 Dictated By: Alvarado Otero M.D. Signed By:02/17/23 1539 DD/ 1537 TD/TT: Elementary Education Tutor: us Kathy Costao DO [facility] Final Result documented in this encounter Visit Diagnoses Not on filedocumented in this encounter
--- OUTSIDE RECORDS SUMMARY | 2024-12-04 13:48 | XMS_ITS | Encounter Summary ---
Author Organization [facility] Address [address] [place] [address] Care Team Providers Care Solution Design Engineer Name Role Phone Unavailable Primary Care Provider Unavailabl e Encounter Details Date Type Department Care Team (Late st Contact Info) Description 05/26/2023 Clinisync Result Encounter [facility] External Department Unsolicited Kathy Perry, [address] [place] [address] Social History Tobacco Use Types Packs/Day Years [...] EST Office Visit [facility]Madeleine [place] OBG[facility] [address] [place] [address] Kathy Perry DO [address] [place] [address] documented as of this encounter Procedures Procedure Name Priority Date/Time Associated Diagnosis Comments US OB CERVICAL LENGTH 05/26/2023 11:07 AM EDT documented in this encounter Results * US OB CERVICAL LENGTH (05/26/2023 11:07 AM EDT) Anatomical Region Laterality Modality Other 05/26/2023 11:0 7 AM EDT Narrative 05/26/2023 11:09 [place] [address] Ultrasound Report Signed Patient: VIANEY VERGARA MR#: [id number] : 1995 Acct:[id number] Age/Sex: 28 / F ADM Date: 05/26/23 Loc: US Attending Dr: Kathy Perry D.O. Ordering Physician: Kathy Perry D.O. Date of Service: 05/26/23 Procedure(s): US OB cervical length Accession Number(s): [id number] cc: Kathy Perry D.O.; Physician,Non-Staff Gertrudis The [place] [id number] Patient Name: VIANEY VERGARA MRN: [id number] date: 1995 Sex: F Assigned Patient Location: US Current Patient Location: US Accession/Order Number: [id number] Exam Date: 05/26/2023 09:58 Report Date: 05/26/2023 11:07 At the request of: KATHY PERRY Procedure: US OB cervical length EXAMINATION: US OB cervical length HISTORY: screening for cervical length Z36.86 COMPARISON: No relevant comparison available. FINDINGS: Position: Cephalic presentation, longitudinal lie Heart rate: 158 bpm Cervix: 3.8 cm, closed US/US OB cervical length IMPRESSION: Closed cervix measuring 3.8 cm in length Electronically authenticated by: ELDER GONZALEZ Date: 05/26/2023 11:07 Dictated By: Elder Gonzalez M.D. Signed By: 05/26/23 1109 DD/ 1107 TD/TT: Psychiatry Instructor: Procedure Note Radiology, Radiologist, MD - 05/26/2023 [place] [address] Ultrasound Report Signed Patient: VIANEY VERGARA MMR#: [id number] : 1995Acct:[id number] Age/Sex: 28 FADM Date: 05/26/23 Loc: US Attending Dr: Kathy Perry D.O. Ordering Physician: Kathy Perry D.O. Date of Service: 05/26/23 Procedure(s): US OB cervical length Accession Number(s): [id number] cc: Kathy Perry D.O.; Physician,Non-Staff Gertrudis [place] [address] Patient Name: VIANEY VERGARA MRN: [id number] date: 1995 Sex: F Assigned Patient Location: US Current Patient Location: Accession/Order Number: [id number] Exam Date: 05/26/2023 09:58 Report Date: 05/26/2023 11:07 At the request of: KATHY PERRY Procedure: US OB cervical length EXAMINATION: US OB cervical length HISTORY: screening for cervical length Z36.86 COMPARISON: No relevant comparison available. FINDINGS: Position: Cephalic presentation, longitudinal lie Heart rate: 158 bpm Cervix: 3.8 cm, closed US/US OB cervical length IMPRESSION: Closed cervix measuring 3.8 cm in length Electronically authenticated by: ELDER GONZALEZ Date: 05/26/2023 11:07 Dictated By: Elder Gonzalez M.D. Signed By:05/26/23 1109 DD/ 1107 TD/TT: Psychiatry Instructor: us Kathy Perry DO [facility] Final Result documented in this encounter Visit Diagnoses Not on filedocumented in this encounter
--- OUTSIDE RECORDS SUMMARY | 2024-12-04 13:48 | XMS_ITS | Encounter Summary ---
Author Organization [facility] tem Address [facility] [id number] [address] [place] [address] Care Team Providers Care Investigative Shopper Name Role Phone Ramses Van MD Primary Care Provider [phone] Encounter Details Date Type Department Care Team (Late st Contact Info) Description 08/10/2023 Orders Only Maternal- Medicine at [facility] [address] [place] [phone] Edith Galvez RN Social History Tobacco Use Types Packs/Day Years Used Date Smoking Tobacco: Former Cigarettes 0.5 7 Smokeless Tobacco: Never Alcohol Use Standard Drinks/Week Comments Not Currently 0 (1 standard drink = 0.6 oz pur e alcohol) Childcare Answer Date Recorded Childcare Unknown 08/08/2018 Employment Answer Date Recorded Employment Unknown 08/08/2018 Purpose - Life Answer Date Recorded Purpose and direction in life Unknown Comments Yes Sex and Gender Information Value Date Recorded Sex Assigned at Not on file Legal Sex Female 6:17 PM EDT Gender Identity Not on file Sexual Orientation Not on file documented as of this encounter Plan of Treatment Not on file documented as of this encounter Visit Diagnoses Not on filedocumented in this encounter Care Teams Investigative Shopper Relationship Specialty [place] [address] [facility] [place] [address] [place] [address] PCP - General Family Medicine 04/10/24 documented as of this encounter
--- OUTSIDE RECORDS SUMMARY | 2024-12-04 13:48 | XMS_ITS | Encounter Summary ---
Author Organization [facility] Address [address] [place] [address] Care Team Providers Care Cider Press Operator Name Role Phone Unavailable Primary Care Provider Unavailabl e Encounter Details Date Type Department Care Team (Late Contact Info) Description 09/15/2023 Abstract NOMMadeleine HODGES [address] [place] [id number] Alvarado Perry DO [facility] [place], [facility]11 Social History Tobacco Use Types Packs/Day Years [...] Office Visit NOMMadeleine HODGES [address] [place] [address] Alvarado Perry DO [address] [place] [place], [place] [phone] documented as of this encounter Visit Diagnoses Not on filedocumented in this encounter
--- OUTSIDE RECORDS SUMMARY | 2024-12-04 13:48 | XMS_ITS | Clinical Summary ---
Author Organization [facility] Address [id number] [address] [place] [address] Care Team Providers Care Automotive Service Advisor Name Role Phone Ramses Van MD Primary Care Provider [phone] Allergies Active Allergy Reactions Criticality Noted Date Comments Bismuth Subcarbonate Hives 08/15/2016 Medications etonogestreL-ethiny l estradioL (ELURYNG) 0.12-0.015 mg/24 hr vaginal ring Insert 1 each into the vagina every 28 days. 5 Active ondansetron ODT (ZOFRAN ODT) 4 mg disintegrating tablet Dissolve 1 tablet (4 mg total) on tongue every 8 (eight) hours as needed for nausea for up to 10 doses. 10 tablet 5 Active prochlorperazine (COMPAZINE) 10 mg tablet Take 1 tablet (10 mg total) by mouth 2 (two) times a day as needed for nausea or vomiting. 10 tablet 5 Active ondansetron (ZOFRAN) 4 mg tablet Take 1 tablet (4 mg total) by mouth every 8 (eight) hours as needed for nausea or vomiting for up to 12 doses. 12 tablet 5 Active Active Problems Patient Care Coordination No te Formatting of this note migh t be different from the original. CARE COORDINATION DIAGNOSIS: left clubbed foot Referring OB: Vicky MFM: Tuckerhejeff cfDNA: low risk XY Amnio: NICU not needed [x]Peds Ortho: notify precision agriculture technician the patient will need to be referred to pediatric Orthopedic surgery Delivery Recommendation: [x] Term at local hospital [] Term at [facility] Surveillance Plan: [] Survey at __ weeks [x] Growth q 4 weeks [] Dopplers q __ weeks [] Echo at __ weeks [] Cervical length q __ weeks [] TTTS q __ weeks [x] Wkly NST/JOHN starting at 32 weeks at OB if uncontrolled HTN [x] 2x/wk NST/JOHN starting at 36 weeks at OB if uncontrolled HTN Problem Noted Date Diagnosed Date Club foot, , affecting care of mother, ante 07/11/2023 Obesity affecting in third trimester 0 07/11/2023 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 mother 07/11/2023 Enlarged thyroid gland 07/11/2023 Hypertension 07/11/2023 Encounters Date Type Department Care Team Description 10/22/2024 Travel 10/17/2024 Travel 10/07/2024 5:11 AM EDT - 10/07/2024 5:47 AM EDT Emergency [facility] Emergency [address] [place] [address] Hussein Fitch E, DO Lower abdominal pain (Primary Dx) Discharge Disposition: Left Against Medical Advice or Discontinued Care 10/07/2024 Travel from Last 3 Months Family History Medical History Relation Name Comments Hypotension Mother Relation Name Status Comments Mother Social History Tobacco Use Types Packs/Day Years Used Date Smoking Tobacco: Former Cigarettes 0.5 7 Smokeless Tobacco: Never Tobacco Cessation:Counseling Given: Not Answered Alcohol Use Standard Drinks/Week Comments Not Currently 0 (1 standard drink = 0.6 oz pur e alcohol) Childcare Answer Date Recorded Childcare Unknown 08/08/2018 Employment Answer Date Recorded Employment Unknown 08/08/2018 Hunger Screening Answer Date Recorded Within the past 12 months we worried whether our food would run out before we got money to buy more. Never True 10/07/2024 Within the past 12 months th e food we bought just didn't last and we didn't have money to get more. Never True 10/07/2024 Purpose - Life Answer Date Recorded Purpose and direction in life Unknown Comments No Sex and Gender Information Value Date Recorded Sex Assigned at Not on file Legal Sex Female 6:17 PM EDT Gender Identity Not on file Sexual Orientation Not on file Last Filed Vital Signs Vital Sign Reading Time Taken Comments Blood Pressure 144/119 10/07/2024 5:13 AM EDT Pulse 76 10/07/2024 5:30 AM EDT Temperature 36.7 C (98.1 F) 10/07/2024 5:13 AM EDT Respiratory Rate 15 10/07/2024 5:30 AM EDT Oxygen Saturation 97% 10/07/2024 5:30 AM EDT Inhaled Oxygen Concentration - - Weight 81.6 kg (180 lb) 10/07/2024 5:13 AM EDT Height 152.4 cm (5') 10/07/2024 5:13 AM EDT Body Mass Index 35.15 10/07/2024 5:13 AM EDT Plan of Treatment Health Maintenance Due Date Last Done Comments Depression Screening 2007 Adult BMI Follow Up Plan 2013 Pap Smear 02/20/2016 DTaP,Tdap and Td Vaccines (7 - Td or Tdap) 04/07/2021 04/07/2011, 10/21/2000, 07/25/1997, Additional history exists Influenza Vaccine 10/29/2024 02/04/2010 Adult BMI Screening 10/07/2025 10/07/2024 Tobacco Screening 10/07/2025 10/07/2024 Medical Devices Not on file Procedures Procedure Name Priority Date/Time Associated Diagnosis Comments FECAL LACTOFERRIN Routine 10/22/2024 7:5 0 AM EDT Change in bowel habit PANCREATIC ELASTASE, F Routine 7:50 AM EDT Change in bowel habit CBC WITH AUTO DIFFERENTIAL Routine 10/17/2024 1:39 PM EDT Change in bowel habit TRANSGLUTAMINASE IGA Routine 10/17/2024 1:36 PM EDT Change in bowel habit CELIAC DISEASE SEROLOGY CASCADE Routine 10/17/2024 1:36 PM EDT Change in bowel habit LIPASE Routine 10/17/2024 1:36 PM EDT Change in bowel habit LIVER PANEL Routine 10/17/2024 1:36 PM EDT Change in bowel habit BASIC METABOLIC PANEL Routine 10/17/2024 1:36 PM EDT Change in bowel habit TROPONIN I, HIGH SENSITIVITY 0 HOUR STAT 10/07/2024 5:37 AM EDT MAGNESIUM STAT 10/07/2024 5:37 AM EDT TROPONIN I, HIGH SENSITIVITY 0 HOUR STAT 10/07/2024 5:37 AM EDT LIPASE STAT 10/07/2024 5:37 AM EDT COMPREHENSIVE METABOLIC PANEL STAT 10/07/2024 5:37 AM EDT CBC WITH AUTO DIFFERENTIAL STAT 10/07/2024 5:37 AM EDT ECG 12-LEAD STAT 10/07/2024 5:15 AM EDT from Last 3 Months Results * Pancreatic Elastase, F (10/22/2024 7:50 AM EDT) PANCREATIC ELASTASE, F >500 >200 (Normal) mcg/g 10/24/2024 2:29 PM EDT [facility] Comment: Test Performed by: [facility] [address] [place] [address] Final Assembly Inspector: Jair Jackson Ph.D.; CLIA# [id number] Stool Feces / Unknown 10/22/2024 7 :50 AM EDT 10/22/2024 7:50 AM EDT us Ramses Van MD BODY FLUIDS AND STOOLS ORDERABL ES Final Result [facility] [address] [place] [address], [place] * Fecal lactoferrin (10/22/2024 7:50 AM EDT) Pathologist [facility] FECAL LACTOFERRIN Negative Negative 10/22/2024 4:31 PM EDT [facility] Stool Feces / Unknown 10/22/2024 7 :50 AM EDT 10/22/2024 7:50 AM EDT us Ramses Van MD BODY FLUIDS AND STOOLS ORDERABL ES Final Result [facility] [address] [place] [address], [place] [phone] * (ABNORMAL) CBC auto differential (10/17/2024 1:39 PM EDT) Only the most recent of2 resultswithin the time period is included. [facility] WBC 10.3 4 - 11 x10E9/L 10/17/2024 8:26 PM EDT [facility] RBC Count 4.57 3.8 - 5.2 X10E12/L 10/17/2024 8:26 PM EDT [facility] Hemoglobin 13.3 11.7 - 15.5 g/dL 10/17/2024 8:26 PM EDT [facility] Hematocrit 40.5 35 - 47 % 10/17/2024 8:26 PM EDT [facility] MCV 89 80 - 100 fL 10/17/2024 8:26 PM EDT [facility] MCH 29.1 27 - 34 pg 10/17/2024 8:26 PM EDT [facility] MCHC 32.9 32 - 36 g/dL 10/17/2024 8:26 PM EDT [facility] RDW 14.0 11.5 - 15 % 10/17/2024 8:26 PM EDT [facility] Platelet Count 331 150 - 450 X10E9/L 10/17/2024 8:26 PM EDT [facility] MPV 8.5 7 - 12 fL 10/17/2024 8:26 PM EDT [facility] Neutrophils % 74.7 % 10/17/2024 8:26 PM EDT [facility] Lymphocytes % 18.2 % 10/17/2024 8:26 PM EDT [facility] Monocytes % 4.4 % 10/17/2024 8:26 PM EDT [facility] Eosinophils % 2.3 % 10/17/2024 8:26 PM EDT [facility] Basophils % 0.4 % 10/17/2024 8:26 PM EDT [facility] Neutrophils Absolute (A) 7.7(H) 1.5 - 6.6 10*3/uL 10/17/2024 8:26 PM EDT [facility] Lymphocytes Absolute 1.9 1.0 - 3.5 10*3/uL 10/17/2024 8:26 PM EDT [facility] Monocytes Absolute 0.5 0.0 - 0.9 10*3/uL 10/17/2024 8:26 PM EDT [facility] Eosinophils Absolute 0.2 0.0 - 0.4 10*3/uL 10/17/2024 8:26 PM EDT [facility] Basophils Absolute 0.0 0.0 - 0.2 10*3/uL 10/17/2024 8:26 PM EDT [facility] Differential Type AUTOMATED DIFFERENTIAL 10/17/2024 8:26 PM EDT [facility] Blood Venous blood / Unknown Venipuncture / Unknown 10/17/2024 1:39 PM EDT 10/17/2024 1:39 PM EDT us Ramses Van MD LAB BLOOD ORDERABLES Final Resu lt [facility] [address] [place] [address], * Transglutaminase IgA (10/17/2024 1:36 PM EDT) TTG AB IGA <1.2 <4.0 (Negative ) U/mL 10/18/2024 9:25 PM EDT [facility] Comment: Test Performed by: [facility] [place] [address] Final Assembly Inspector: Jair Jackson Ph.D.; CLIA# [id number] Blood Venous blood / Unknown 10/17/2024 1:36 PM EDT 10/17/2024 1:37 PM EDT Ramses Van MD LAB BLOOD ORDERABLES Final Resu lt Performing Organization Address [facility] Co de Phone Number [facility] [address] [place] [address], [place] * Celiac disease serology cascade (10/17/2024 1:36 PM EDT) Pathologist [facility] CELIAC DISEASE SEROLOGY CASCADE SEE COMMENTS 10/18/2024 9:36 PM EDT [facility] Comment: Test Result Flag Unit RefValue Celiac Disease Serology [place] Immunoglobulin A (IgA), S 163 mg/dL 61 - 356 Celiac Disease Interpretation SEE COMMENTS See Comment: Negative serology. Celiac disease unlikely. However, approximately 10% of patients with celiac disease are seronegative. Also, patients who are already adhering to a gluten-free diet may be seronegative. If celiac disease is highly clinically suspected, consider HLA-DQ typing. Test Performed by: [facility] [place] [address] Final Assembly Inspector: Jair Jackson Ph.D.; CLIA# [id number] Blood Venous blood / Unknown 10/17/2024 1:36 PM EDT 10/17/2024 1:37 PM EDT Ramses Van MD LAB BLOOD ORDERABLES Final Resu lt Performing Organization Address [facility]/ZIP Co de Phone Number [facility] [address] [place] [address], [place] * Lipase (10/17/2024 1:36 PM EDT) Only the most recent of2 resultswithin the time period is included. LIPASE 41 11 - 82 U/L 10/17/2024 6:07 PM EDT [facility] Blood Venous blood / Unknown 10/17/2024 1:36 PM EDT 10/17/2024 1:36 PM EDT us Ramses Van MD LAB BLOOD ORDERABLES Final Resu lt [facility] [address] [place] [address], [place] [phone] * (ABNORMAL) Liver panel (10/17/2024 1:36 PM EDT) TOTAL PROTEIN 6.6 6.0 - 8.0 g/dL 10/17/2024 6:07 PM EDT [facility] ALBUMIN 3.8 3.2 - 5.3 g/dL 10/17/2024 6:07 PM EDT [facility] BILIRUBIN,TOTAL 0.2(L) 0.3 - 1.2 mg/dL 10/17/2024 6:07 PM EDT [facility] ALKALINE PHOSPHATASE 56 39 - 130 U/L 10/17/2024 6:07 PM EDT [facility] AST 16 <=41 U/L 10/17/2024 6:07 PM EDT [facility] ALT 20 <=31 U/L 10/17/2024 6:07 PM EDT [facility] BILIRUBIN,DIRECT <0.1 <=0.4 mg/dL 10/17/2024 6:07 PM EDT [facility] Blood Venous blood / Unknown 10/17/2024 1:36 PM EDT 10/17/2024 1:36 PM EDT us Ramses Van MD LAB BLOOD ORDERABLES Final Resu lt [facility] [address] [place] [address], * (ABNORMAL) Basic Metabolic Panel (10/17/2024 1:36 PM EDT) SODIUM 140 134 - 146 mmol/L 10/17/2024 6:07 PM EDT [facility] POTASSIUM 3.6 3.5 - 5.0 mmol/L 10/17/2024 6:07 PM EDT [facility] CHLORIDE 105 98 - 109 mmol/L 10/17/2024 6:07 PM EDT [facility] CARBON DIOXIDE 26 22 - 32 mmol/L 10/17/2024 6:07 PM EDT [facility] ANION GAP 9 5 - 15 mmol/L 10/17/2024 6:07 PM EDT [facility] BLOOD UREA NITROGEN 10 5 - 23 mg/dL 10/17/2024 6:07 PM EDT [facility] CREATININE 0.66 0.40 - 1.00 mg/dL 10/17/2024 6:07 PM EDT [facility] Comment:METHOD TRACEABLE TO IDMS STANDARD GLUCOSE 106(H) 65 - 99 mg/dL 10/17/2024 6:07 PM EDT [facility] CALCIUM 9.0 8.5 - 10.5 mg/dL 10/17/2024 6:07 PM EDT [facility] EGFR Non-Race Dependent >90 >=60 ml/min/1.7 3sq.m 10/17/2024 6:07 PM EDT [facility] Comment: Reported eGFR is based on the CKD-EPI 2020 equation that does not use a race coefficient. EGFR not calculated due to patient's gender not being defined. Blood Venous blood / Unknown 10/17/2024 1:36 PM EDT 10/17/2024 1:36 PM EDT Ramses Van MD LAB BLOOD ORDERABLES Final Resu lt [facility] [address] [place] [address], [place] [phone] * Troponin I, High Sensitivity 0 Hour (10/07/2024 5:37 AM EDT) TROPONIN I, HIGH SENSITIVITY <2 <16 ng/L 10/07/2024 6:11 AM EDT [facility] Blood Venous blood / Unknown Venipuncture / Unknown 10/07/2024 5:37 AM EDT 10/07/2024 5:40 AM EDT us Hussein Fitch DO LAB BLOOD ORDERABLES Final R esult [address] [place] [address], [place] * (ABNORMAL) Magnesium (10/07/2024 5:37 AM EDT) Pathologist [facility] MAGNESIUM 1.7(L) 1.8 - 2.6 mg/dL 10/07/2024 6:03 AM EDT [facility] Blood Venous blood / Unknown Venipuncture / Unknown 10/07/2024 5:37 AM EDT 10/07/2024 5:40 AM EDT us Hussein Fitch DO LAB BLOOD ORDERABLES Final R esult [address] [place] [address], [place] * (ABNORMAL) Comprehensive metabolic panel (10/07/2024 5:37 AM EDT) Pathologist [facility] SODIUM 138 134 - 146 mmol/L 10/07/2024 6:03 AM EDT [facility] POTASSIUM 3.5 3.5 - 5.0 mmol/L 10/07/2024 6:03 AM EDT [facility] CHLORIDE 104 98 - 109 mmol/L 10/07/2024 6:03 AM EDT [facility] CARBON DIOXIDE 24 22 - 32 mmol/L 10/07/2024 6:03 AM EDT [facility] ANION GAP 10 5 - 15 mmol/L 10/07/2024 6:03 AM EDT [facility] BLOOD UREA NITROGEN 11 5 - 23 mg/dL 10/07/2024 6:03 AM EDT [facility] CREATININE 0.77 0.40 - 1.00 mg/dL 10/07/2024 6:03 AM EDT [facility] Comment:METHOD TRACEABLE TO IDMS STANDARD GLUCOSE 96 65 - 99 mg/dL 10/07/2024 6:03 AM EDT [facility] CALCIUM 9.2 8.5 - 10.5 mg/dL 10/07/2024 6:03 AM T [facility] TOTAL PROTEIN 7.2 6.0 - 8.0 g/dL 10/07/2024 6:03 AM T [facility] ALBUMIN 3.5 3.2 - 5.3 g/dL 10/07/2024 6:03 AM EDT [facility] ALKALINE PHOSPHATASE 61 39 - 130 U/L 10/07/2024 6:03 AM EDT [facility] AST 26 <=41 U/L 10/07/2024 6:03 AM EDT [facility] ALT 45(H) <=31 U/L 10/07/2024 6:03 AM T [facility] BILIRUBIN,TOTAL 0.6 0.3 - 1.2 mg/dL 10/07/2024 6:03 AM T [facility] EGFR Non-Race Dependent >90 >=60 ml/min/1.7 3sq.m 10/07/2024 6:03 AM T [facility] Comment: eGFR not reported due to non-numeric value for Creatinine. Reported eGFR is based on the CKD-EPI 2020 equation that does not use a race coefficient. Blood Venous blood / Unknown Venipuncture / Unknown 10/07/2024 5:37 AM EDT 10/07/2024 5:40 AM EDT us Hussein Fitch DO LAB BLOOD ORDERABLES Final R esult [facility] [address] [place] [address], [place] * ECG 12 lead (10/07/2024 5:15 AM EDT) 10/07/2024 5:15 AM EDT Narrative [facility] - 10/07/2024 6:06 AM EDT us Hussein Fitch DO ECG ORDERABLES Final Result Performing Organization Address City/[facility]/ZIP Co de Phone Number [facility] from Last 3 Months Insurance [facility] Care Teams Automotive Service Advisor Relationship Specialty [place] [address] [place] [address] [place] [address] PCP - General Family Medicine 04/10/24
--- OUTSIDE RECORDS SUMMARY | 2024-12-04 13:48 | XMS_ITS | Encounter Summary ---
Author Organization [facility] Address [address] [place] [address] Care Team Providers Care Plant Pathology Teacher Name Role Phone Unavailable Primary Care Provider Unavailabl e Encounter Details Date Type Department Care Team (Late Contact Info) Description 09/13/2023 Abstract NOMMadeleine HODGES [address] [facility] [place] [phone] Stacey Sullivan LPN [address] [facility] [place] [facility]11 Social History Tobacco Use Types [...] AM EST Office Visit NOMMadeleine HODGES [address] [facility] [address] Alvarado Perry DO [address] [place] [address] documented as of this encounter Visit Diagnoses Not on filedocumented in this encounter
--- OUTSIDE RECORDS SUMMARY | 2024-12-04 13:48 | XMS_ITS | Encounter Summary ---
Author Organization [facility] Address [address] [place] [address] Care Team Providers Care Electrophonic Engineer Name Role Phone Unavailable Primary Care Provider Unavailabl e Encounter Details Date Type Department Care Team (Late Contact Info) Description 09/20/2023 Abstract NOMMadeleine HODGES [address] [facility] [place] [address] Archana Sebastian LPN [address] [place] [address] Social History Tobacco Use Types Packs/Day Years [...] AM EST Office Visit NOMMadeleine HODGES [address] [facility] [facility] [place] [address] Alvarado Perry DO [address] [place] [phone] documented as of this encounter Visit Diagnoses Not on filedocumented in this encounter
--- OUTSIDE RECORDS SUMMARY | 2024-12-04 13:48 | XMS_ITS | Encounter Summary ---
Author Organization [facility] Address [address] [place] [address] Care Team Providers Care Prep Room Supervisor Name Role Phone Unavailable Primary Care Provider Unavailabl e Reason for Visit * Reason Comments Med Refill Encounter Details Date Type Department Care Team (Late Contact Info) Description 12/14/2022 Refill NOMMadeleine HODGES [address] [place] [phone] Gabriela Bose PA [address] [place], [facility]11 Mood changes Social History Tobacco Use Types Packs/Day Years Used Date Smoking Tobacco: Every Day Cigarettes Started: 02/28/2007 Alcohol Use Standard Drinks/Week Comments Yes 0 (1 standard drink = 0.6 oz pure alcohol) 1-2 drinks less than monthly in the past year Comments Unknown Sex and Gender Information Value Date Recorded Sex Assigned at Not on file Legal Sex Female 11:16 PM EDT Gender Identity Not on file Sexual Orientation Not on file documented as of this encounter Miscellaneous Notes * Telephone Encounter - Risa Tolbert LPN - 12/14/2022 8:35 AM EDT Approving, but needs appt for additional refills. documented in this encounter Plan of Treatment Upcoming Encounters Date Type Department Care Team (Late Contact Info) Description 04/23/2025 11:00 AM EST Office Visit NOMMadeleine HODGES [address] [place] [address] Alvarado Perry DO [address] [facility] [place] [address] documented as of this encounter Visit Diagnoses Diagnosis Mood changes Unspecified episodic mood disorder documented in this encounter
--- OUTSIDE RECORDS SUMMARY | 2024-12-04 13:48 | XMS_ITS | Encounter Summary ---
Author Organization [facility] Address [address] [place] [address] Care Team Providers Care Bilingual Receptionist Name Role Phone Unavailable Primary Care Provider Unavailabl e Encounter Details Date Type Department Care Team (Late Contact Info) Description 09/15/2023 Abstract NOMMadeleine HODGES [address] [place] [phone] Alvarado Perry DO [facility] [place], [facility]11 Social History Tobacco Use Types Packs/Day Years [...] Office Visit NOMMadeleine HODGES [address] [place] [address] Alvarado Perry DO [address] [place], [place] [phone] documented as of this encounter Visit Diagnoses Not on filedocumented in this encounter
--- OUTSIDE RECORDS SUMMARY | 2024-12-04 13:48 | XMS_ITS | Encounter Summary ---
Author Organization [facility] Address [address] [place] [address] Care Team Providers Care High School Math Tutor Name Role Phone Unavailable Primary Care Provider Unavailabl e Encounter Details Date Type Department Care Team (Late Contact Info) Description 08/14/2022 Abstract NOMMadeleine HODGES [address] [facility] [place] [phone] Gabriela Bose PA [address] [place], [facility]11 Social History Tobacco Use Types Packs/Day Years [...] AM EST Office Visit UMBERTO HODGES [address] [facility] [place] [address] Alvarado Perry DO [address] [facility] [address] [place] [address] documented as of this encounter Visit Diagnoses Not on filedocumented in this encounter
--- NOTE | 2024-12-04 13:53 | US_ITS ---
Patient Name: DARRIUS VERGARA MR#: [id number] : 1995 Exam Date: 12/04/2024 Ordering Doctor: LAUREL WASSERMAN CNP RADIOLOGY REPORT PROCEDURE: MM TOMOSYNTHESIS DIAGNOSTIC BI, 12/04/2024, 14:13 US BREAST RT LIMITED, 12/04/2024, 14:59 COMPARISON: None. INDICATIONS: Mass Of Right Breast , Breast Pain Calculator Name NCI Breast Cancer Risk Assessment Tool 5 Year Breast Cancer Risk Not Applicable. Lifetime Breast Cancer Risk Not Applicable. Personal Breast Cancer No Personal Ovarian Cancer No Treatments None Family Cancers None LOCATION: [facility] BREAST COMPOSITION: There are scattered areas of fibroglandular density. FINDINGS: DIAGNOSTIC CATEGORY 1--NEGATIVE. RIGHT BREAST: No significant suspicious finding. No suspicious abnormality in the area of palpable lump involving the right breast. LEFT BREAST: No significant suspicious finding. Right breast ultrasound: Imaging in the area of palpable lump at the 2 o'clock position of the right breast demonstrates no suspicious mass or cyst. RECOMMENDATIONS: ROUTINE MAMMOGRAM AND CLINICAL EVALUATION IN 12 MONTHS. The patient's palpable lump should be handled on a clinical basis . Dictated by: Lexa Abdalla DO on 12/04/2024 at 15:16 Approved by: Lexa Abdalla DO on 12/04/2024 at 15:20
--- OUTSIDE RECORDS SUMMARY | 2024-12-04 13:53 | XMS_ITS | CCD ---
Author Organization [facility] Care Team Providers Care Site Lead Name Role Phone Mirna Bennett Primary Care Provider NO FAMILY, PHYSICIAN Primary Care Provider Unava ilJammie Bhatti Attending Provider [phone] Mirna Bennett Primary Care Provider [phone] LIZBET ANA Admitting Unavailable SAMANA MARCOS Attending Unavailable SAMANA MARCOS Consulting Unavailable SAMSA ANA Admitting Unavailable SAMSAANA Attending Unavailable ANA SOMERS Consulting Unavailable AGUBOSIM KELSEY Consulting Unavailable YARITZA SHANKAR Consulting Unavailable DR ALVARADO PERRY Admitting Unavailable DR ALVARADO PERRY Attending Unavailable DR ALVARADO PERRY Consulting Unavailable Julieth Winkler Unavailable Jammie Terry Unavailable Mirna Bennett MD Primary Care Provider [phone] ELICIA GONZALEZ Referring Unavailable MIRNA BENNETT Primary Care Unavailable ELICIA GONZALEZ Referring Unavailable MIRNA BENNETT Primary Care Unavailable Unavailable Primary Care Provider UnavailMIRNA Martinez Referring Unavailable MIRNA BENNETT Primary Care Unavailable LEO JOHNSON Attending Unavailable MIRNA BENNETT Referring Unavailable MIRNA BENNETT Primary Care Unavailable PERRY YBARRA Attending Unavailable MD Mirna Bennett Primary Care Provider [phone] DO Alvarado Perry Attending Provider Mirna Bennett Primary Care Unavailable Alvarado Perry Attending Unavailable Alvarado Perry Admitting Unavailable Mirna Bennett MD Primary Care Provider MIRNA BENNETT Primary Care Unavailable DONNA TARANGO Attending Unavailable MIRNA BENNETT Primary Care Unavailable SWAPNA TAYLOR Attending Unavailable MIRNA BENNETT Primary Care Unavailable GRADY HENSLEY Attending Unavailable MIRNA BENNETT Primary Care Unavailable TRESSA DIETRICH Attending Unavailable MIRNA BENNETT Referring Unavailable MIRNA BENNETT Primary Care Unavailable MIRNA BENNETT Referring Unavailable MIRNA BENNETT Primary Care Unavailable ALVARADO PERRY Attending Unavailable LAUREL JACOBSON Attending Unavailable Allergies Allergy Classification Reported Allergen(s) Allergy Type Date of Onset Reaction(s) Facility (2 sources) Amoxicillin-Pot Clavulanate Propensity to adverse reactions to drug 11-17-19 17 Other (See Comments) [employer] Work Phone: (3 sources) Bismuth-Containin g Compounds Propensity to adverse reactions to drug 03-24-19 16 [facility] [employer] Work Phone: (1 source) bismuth subsalicylate Drug Allergy 10-10-19 18 [facility] Repository (5 sources) bismuth subsalicylate Drug Allergy 12-03-19 21 hives, Other (See Comments) [facility] [employer] (11 sources) bismuth subsalicylate Drug Allergy 12-03-19 21 [facility] [employer] Work Phone: (11 sources) Bismuth-Containin g Compounds Drug Intolerance 03-24-19 16 [facility] (7 sources) bismuth subcarbonate; Translations: [BISMUTH SUBCARBONATE] Drug Allergy 08-16-19 17 [facility] Repository (1 source) bismuth subsalicylate Drug Allergy 04-12-19 23 [facility] Repository Medications Current Medications Medication Drug Class(es) Dates Sig (Normalized) Sig (Original) [id number] 200 actuat albuterol 0.09 mg/actuat metered dose inhaler (10 sources) beta2-Adrenergic Agonist Start: 12-18-2023 take 1-2 puff(s) by mouth every four to six hours as needed for cough albuterol HFA 90 mcg/act inhaler INHALE 1-2 PUFFS BY MOUTH EVERY 4-6 HOURS NEEDED FOR COUGH, SHORTNESS OF BREATH, OR WHEEZING. 12/18/2023 Active Start: 03-04-2021 take 2 puff(s) by in halation every four hours as needed for wheezing [...] tablet 12/14/2021 Active 21 day ethinyl estradiol 0.758847 mg/hr / etonogestrel 0.005 mg/hr vaginal system (18 sources) Progestin, Estrogen Start: 09-21-2024 etonogestrel-ethiny l estradiol (EluRyng) 0.12-0.015 MG/24HR vaginal ring Indications: 6 weeks follow-up ([facility]) , Encounter for initial prescription of vaginal ring hormonal contraceptive INSERT 1 RING INTO THE VAGINA AND LEAVE IN FOR 3 WEEKS, THEN REMOVE FOR 1 WEEK 3 each 3 09/21/2024 Active Start: 03-28-2024 etonogestrel-e thinyl estradiol (EluRyng) 0.12-0.015 MG/24HR vaginal ring Indications: 6 weeks follow-up , Encounter for initial prescription of vaginal ring hormonal contraceptive INSERT 1 RING VAGINALLY AND LEAVE IN PLACE X3 WEEKS, THEN REMOVE X1 WEEK. THEN REPEAT 3 each 11 03/28/2024 Active Start: 10-20-2023 End: 11-17-2023 etonogestrel-ethinyl estradi ol (Nuvaring) 0.12-0.015 MG/24HR vaginal ring Indications: 6 [...] / neomycin 3.5 mg/ml / polymyxin b 14138 unt/ml otic suspension (1 source) Aminoglycoside Antibacterial, Polymyxin-class Antibacterial, Corticosteroid Start: 04-12-2022 [facility] 3.5-83383-6 3 drops left ear Three times a [...] Active Start: 11-01-2017 take 1 capsule by [facility] once daily omeprazole (PRILOSEC) 40 MG delayed release capsule TAKE 1 CAPSULE BY MOUTH DAILY 30 capsule 1 11/01/2017 Active ondansetron 4 mg disintegrating oral tablet (6 sources) Serotonin-3 Receptor Antagonist Start: 04-10-2024 take 1 tablet by mouth every eight hours as needed ondansetron ODT (Zofran-ODT) 4 MG disintegrating tablet Take 4 mg by mouth every 8 (eight) hours if needed 04/10/2024 Active Phentermine (1 source) Sympathomimetic Amine Anorectic Adipex-P Active PNV no.95/ferrous fum/folic ac ( ORAL) (4 sources) PNV no.95/ferrou s fum/folic ac ( ORAL) Take by mouth. Active predniSONE 20 mg oral tablet (4 sources) Start: 12-14-2021 take 2 tablets by mouth in the morning predniSONE (DELTASONE) 20 mg tablet Take 2 tablets (40 mg total) by mouth in the morning. 10 tablet 12/14/2021 Active Vit-Fe Fumarate-FA ( Plus/Iron) 27-1 MG tablet (2 sources) Start: 02-17-2023 End: 02-17-2024 take 1 tablet by mouth in the morning Vit-Fe Fumarate-FA ( Plus/Iron) 27-1 MG tablet Indications: Missed menses Take 1 tablet by mouth in the morning. 90 tablet 3 02/17/2023 02/17/2024 Active prochlorperazine 10 mg oral tablet (6 sources) Phenothiazine Start: 04-10-2024 take 1 tablet by mouth twice daily as needed prochlorperazine (Compazine) 10 MG tablet Take 10 mg by mouth 2 (two) times a day as needed 04/10/2024 Active 0.25 mg, 0.5 mg dose 1.5 [...] Active Problems Problem Classification Problem Date Documented Da te Episodic/Chronic Abdominal pain (5 sources) Right upper quadrant pain; Translations: [Abdominal pain] Onset: 5 Episodic Allergic reactions (3 sources) Atopic dermatitis; Translations: [Intrinsic (allergic) eczema] Onset: 0 07-24-2019 Chronic Anxiety disorders (3 sources) Mixed anxiety and depressive disorder; Translations: [Other specified anxiety disorders] Onset: 6 05-26-2015 Chronic E Codes: Fall (2 sources) Fall Onset: 5 Esophageal disorders (3 sources) Gastroesophageal reflux disease; Translations: [Gastro-esophageal reflux disease without esophagitis] Onset: 7 04-27-2016 Chronic Essential hypertension (4 sources) Hypertensive disorder; Translations: [Essential (primary) hypertension] Onset: 4 07-11-2023 Chronic Gastritis and duodenitis (1 source) Acute gastritis without bleeding; Translations: [Acute gastritis without bleeding] Onset: 5 Episodic Hypertension complicating ; childbirth and the puerperium (1 source) Hypertension complicating ; Translations: [Unspecified maternal hypertension, third trimester] 08-10-2023 Chronic Immunizations and screening for infectious disease (7 sources) Encounter for screening for human papillomavirus (HPV); Translations: [Contact with and (suspected) exposure to other viral communicable diseases] Onset: 2 Resolved: 2 Episodic Joint disorders and dislocations; trauma-related (11 sources) Chondromalacia of patella; Translations: [Chondromalacia patellae, unspecified knee] Onset: 3 08-16-2022 Chronic Nonmalignant breast conditions (4 sources) Pain of breast; Translations: [Mastodynia] 11-22-2024 Episodic Nonspecific chest pain (1 source) Chest pain, unspecified; Translations: [Chest pain, unspecified] Onset: 5 Episodic Other complications of ; puerperium affecting management of mother (1 source) Maternal care for (suspected) abnormality and damage, unspecified, not applicable or unspecified; Translations: [Maternal care for (suspected) abnormality and damage, unspecified, not applicable or unspecified] Onset: 4 Episodic Other complications of (1 source) Obesity complicating , unspecified trimester; Translations: [Obesity complicating , unspecified trimester] Onset: 4 Chronic Other complications of (5 sources) Maternal obesity complicating , childbirth and the puerperium, antepartum; Translations: [Obesity complicating , third trimester] Onset: 4 07-11-2023 Chronic Other connective tissue disease (1 source) Trochanteric bursitis of left hip; Translations: [Trochanteric bursitis, left hip] Onset: 2 01-25-2022 Episodic Other ear and sense organ disorders (1 source) Unspecified acute noninfective otitis externa, left ear Episodic Other gastrointestinal disorders (1 source) Change in bowel habit; Translations: [Change in bowel habit] Onset: 5 Episodic Other injuries and conditions due to external causes (4 sources) Food in respiratory tract, part unspecified causing asphyxiation, initial encounter; Translations: [FOOD RESP TRACT PRT UNS ASPHYX INIT] Onset: 2 Episodic Other injuries and conditions due to external causes (1 source) Unspecified injury of right elbow, initial encounter; Translations: [Unspecified injury of right elbow, initial encounter] Onset: 4 Episodic Other lower respiratory disease (1 source) Dyspnea, unspecified; Translations: [DYSPNEA UNSPECIFIED] Onset: 2 Episodic Other non-traumatic joint disorders (1 source) Pain in elbow Onset: 4 Episodic Other nutritional; endocrine; and metabolic disorders (1 source) Obesity, unspecified; Translations: [OBESITY UNSPECIFIED] Onset: 2 Chronic Other nutritional; endocrine; and metabolic disorders (1 source) Body mass index (BMI) 33.0-33.9, adult; Translations: [BODY MASS INDEX BMI 33.0-33.9 ADULT] Onset: 2 Chronic Other screening for suspected conditions (not mental disorders or infectious disease) (9 sources) Encounter for screening for malignant neoplasm of cervix; Translations: [Patient encounter status] Onset: 2 Episodic Other skin disorders (1 source) Foreign body granuloma of the skin and subcutaneous tissue Episodic Otitis media and related conditions (1 source) Otitis media, unspecified, left ear Episodic Residual codes; unclassified (1 source) 29 weeks gestation of ; Translations: [29 weeks gestation of ] Onset: 4 Episodic Sprains and strains (2 sources) Acetabular labrum tear; Translations: [Other sprain of left hip, initial encounter] Onset: 2 Episodic Substance-related disorders (12 sources) Nicotine dependence, cigarettes, uncomplicated; Translations: [Smoker] Onset: 2 06-19-2023 Chronic Thyroid disorders (4 sources) Goiter; Translations: [Nontoxic goiter, unspecified] Onset: 4 07-11-2023 Chronic Unclassified (1 source) COUGH, UNSPECIFIED; Translations: [COUGH, UNSPECIFIED] Onset: 2 Unclassified (1 source) PERSONAL HISTORY OF COVID-19; Translations: [PERSONAL HISTORY OF COVID-19] Onset: 2 Unclassified (1 source) CONTACT W/AND (SUSP) EXPOS COVID-19; Translations: [CONTACT W/AND (SUSP) EXPOS COVID-19] Onset: 2 Unclassified (1 source) Maternal care for other (suspected) abnormality and damage, lower extremities anomalies, not applicable or unspecified; Translations: [Maternal care for other (suspected) abnormality and damage, lower extremities anomalies, not applicable or unspecified] Onset: 4 Unclassified (1 source) left club foot Onset: 4 Unclassified (1 source) Rt elbow pain Onset: 4 Past or Other Problems Problem Classification Problem [...] lower leg] Onset: 05-26-2015 05-26-2015 Episodic Other non-traumatic joint disorders (1 source) Pain in right elbow; Translations: [Pain in right elbow] Onset: 04-10-2024 Episodic Other non-traumatic joint disorders (1 source) Pain in right wrist; Translations: [Pain in right wrist] Onset: 04-10-2024 Episodic Other and delivery including normal (4 [...] Test Name Value Interpretation Reference Range Facility FECAL LACTOFERRINon 10-23-19 FECAL LACTOFERRIN Negative Normal Negative [facility] Comment on above: Performed By: #### L ACTOF ####[facility] ([facility])[address] [address] VIR PANCREATIC ELASTASE, David PANCREATIC ELASTASE, F >500 Normal >200 (Normal) [facility] Comment on above: Result Comment: Test Performed by: [facility] [address] [place] [address] Glass Installer: Jair Jackson Ph.D.; CLIA# [id number] Performed By: #### P NCEF ####[facility] [employer] ([facility])[address] [place] [address] VIR BASIC METABOLIC PANELon 09-29 Anion gap [Moles/Vol] 9 mmol/L Normal 5-15 [facility] Comment on above: Performed By: #### B MP #### [facility] ([facility]) [address] [place] [address] VIR Calcium [Mass/Vol] 9.0 mg/dL Normal 8.5-10.5 [facility] Comment on above: Performed By: #### B MP #### [facility] ([facility]) [address] [place] [address] VIR Chloride [Moles/Vol] 105 mmol/L Normal 98-109 [facility] Comment on above: Performed By: #### B MP #### [facility] ([facility]) [address] [place] [address] VIR CO2 [Moles/Vol] 26 mmol/L Normal 22-32 [facility] Comment on above: Performed By: #### B MP #### [facility] ([facility]) [address] [place] [address] VIR Creatinine [Mass/Vol] 0.66 mg/dL Normal 0.40-1.00 [facility] Comment on above: Result Comment: METH OD TRACEABLE TO IDMS STANDARD Performed By: #### B MP #### [facility] ([facility]) [address] [place] [address] VIR EGFR (CKD-EPI) NON-RACE DEPENDENT >^90 Normal >=60 [facility] Comment on above: Result Comment: Repo rted eGFR is based on the CKD-EPI 2020 equation that does not use a race coefficient. EGFR not calculated due to patient's gender not being defined. Performed By: #### B MP #### [facility] ([facility]) [address] [place] [address] VIR Glucose [Mass/Vol] 106 mg/dL High 65-99 [facility] Comment on above: Performed By: #### B MP #### [facility] ([facility]) [address] [place] [address] VIR Potassium [Moles/Vol] 3.6 mmol/L Normal 3.5-5.0 [facility] Comment on above: Performed By: #### B MP #### [facility] ([facility]) [address] [place] [address] VIR Sodium [Moles/Vol] 140 mmol/L Normal 134-146 [facility] Comment on above: Performed By: #### B MP #### [facility] ([facility]) [address] [place] [address] VIR Urea nitrogen [Mass/Vol] 10 mg/dL Normal 5-23 [facility] Comment on above: Performed By: #### B MP #### [facility] ([facility]) [address] [place] [address] VIR CBC WITH AUTO DIFFERENTIALon 10-17-2024 BASOPHILS ABSOLUTE COUNT (10*3/UL) BY AUTOMATED COUNT 0.0 10*3/uL Normal 0.0-0.2 [facility] Comment on above: Performed By: #### C BCA ####[facility] ([facility])[address] [address] VIR BASOPHILS RELATIVE PERCENT BY AUTOMATED COUNT 0.4 % Normal [facility] Comment on above: Performed By: #### C BCA ####[facility] ([facility])[address], [place] [address] VIR CELLAVISION DIFFERENTIAL TYPE AUTOMATED DIFFERENTIAL Normal [facility] Comment on above: Performed By: #### C BCA ####[facility] ([facility])[address], [place] [address] VIR Eosinophils (Bld) [#/Vol] 0.2 10*3/uL Normal 0.0-0.4 [facility] Comment on above: Performed By: #### C BCA ####[facility] ([facility])[address], [place] [address] VIR EOSINOPHILS RELATIVE PERCENT BY AUTOMATED COUNT 2.3 % Normal [facility] Comment on above: Performed By: #### C BCA ####[facility] ([facility])[address], [place] [address] VIR Erythrocyte distribution width (RBC) [Ratio] 14.0 % Normal 11.5-15 [facility] Comment on above: Performed By: #### C BCA ####[facility] ([facility])[address], [place] [address] VIR Hematocrit (Bld) [Volume fraction] 40.5 % Normal 35-47 [facility] Comment on above: Performed By: #### C BCA ####[facility] ([facility])[address], [place] [address] VIR Hemoglobin (Bld) [Mass/Vol] 13.3 g/dL Normal 11.7-15.5 [facility] Comment on above: Performed By: #### C BCA ####[facility] ([facility])[address], [place] [address] VIR LYMPHOCYTES ABSOLUTE COUNT (10*3/UL) BY AUTOMATED COUNT 1.9 10*3/uL Normal 1.0-3.5 [facility] Comment on above: Performed By: #### C BCA ####[facility] ([facility])[address], [place] [address] VIR LYMPHOCYTES RELATIVE PERCENT BY AUTOMATED COUNT 18.2 % Normal [facility] Comment on above: Performed By: #### C BCA ####[facility] ([facility])[address], [place] [address] VIR MCH (RBC) [Entitic mass] 29.1 pg Normal 27-34 [facility] Comment on above: Performed By: #### C BCA ####[facility] ([facility])[address], [place] [address] VIR MCHC (RBC) [Mass/Vol] 32.9 g/dL Normal 32-36 [facility] Comment on above: Performed By: #### C BCA ####[facility] ([facility])[address], [place] [address] VIR MCV (RBC) [Entitic vol] 89 fL Normal 80-100 [facility] Comment on above: Performed By: #### C BCA ####[facility] ([facility])[address], [place] [address] VIR MONOCYTES ABSOLUTE COUNT (10*3/UL) BY AUTOMATED COUNT 0.5 10*3/uL Normal 0.0-0.9 [facility] Comment on above: Performed By: #### C BCA ####[facility] ([facility])[address], [place] [address] VIR MONOCYTES RELATIVE PERCENT BY AUTOMATED COUNT 4.4 % Normal [facility] Comment on above: Performed By: #### C BCA ####[facility] ([facility])[address], [place] [address] VIR NEUTROPHILS ABSOLUTE COUNT BY AUTOMATED COUNT 7.7 10*3/uL High 1.5-6.6 [facility] Comment on above: Performed By: #### C BCA ####[facility] ([facility])[address], [place] [address] VIR NEUTROPHILS RELATIVE PERCENT BY AUTOMATED COUNT 74.7 % Normal [facility] Comment on above: Performed By: #### C BCA ####[facility] ([facility])[address], [place] [address] VIR Platelet mean volume (Bld) [Entitic vol] 8.5 fL Normal 7-12 [facility] Comment on above: Performed By: #### C BCA ####[facility] ([facility])[address], [place] [address] VIR Platelets (Bld) [#/Vol] 331 10*3/uL Normal 150-450 [facility] Comment on above: Performed By: #### C BCA ####[facility] ([facility])[address], [place] [address] VIR RBC COUNT 4.57 X10E12/L Normal 3.8-5.2 [facility] Comment on above: Performed By: #### C BCA ####[facility] ([facility])[address], [place] [address] VIR WBC (Bld) [#/Vol] 10.3 10*3/uL Normal 4-11 [facility] Comment on above: Performed By: #### C BCA ####[facility] ([facility])[address], [place] [address] VIR CELIAC DISEASE SEROLOGY [facility] 10-17-2024 CELIAC DISEASE SEROLOGY [place] SEE COMMENTS Normal [facility] Comment on above: Result Comment: Test Result Flag Unit RefValue ----- Celiac Disease Serology [place] Immunoglobulin A (IgA), S 163 mg/dL 61 - 356 Celiac Disease Interpretation SEE COMMENTS See Comment: Negative serology. Celiac disease unlikely. However, approximately 10% of patients with celiac disease are seronegative. Also, patients who are already adhering to a gluten-free diet may be seronegative. If celiac disease is highly clinically suspected, consider HLA-DQ typing. Test Performed by: [facility] [address] [place] [address] Glass Installer: Jair Jackson Ph.D.; CLIA# [id number] Performed By: #### C DSRO ####[facility] ([facility])[address] [place] [address] VIR LIPASEon 10-17-2024 Lipase [Catalytic activity/Vol] 41 U/L Normal 11-82 [facility] Comment on above: Performed By: #### L IPA #### [facility] ([facility]) [address] [place] [address] VIR LIVER PANELon 10-17-2024 Albumin [Mass/Vol] 3.8 g/dL Normal 3.2-5.3 [facility] Comment on above: Performed By: #### L IVR #### [facility] ([facility]) [address] [place] [address] VIR ALP [Catalytic activity/Vol] 56 U/L Normal 39-130 [facility] Comment on above: Performed By: #### L IVR #### [facility] ([facility]) [address] [place] [address] VIR ALT [Catalytic activity/Vol] 20 U/L Normal <=31 [facility] Comment on above: Performed By: #### L IVR #### [facility] ([facility]) [address] [place] [address] VIR AST [Catalytic activity/Vol] 16 U/L Normal <=41 [facility] Comment on above: Performed By: #### L IVR #### [facility] ([facility]) [address] [place] [address] VIR Bilirubin [Mass/Vol] 0.2 mg/dL Low 0.3-1.2 [facility] Comment on above: Performed By: #### L IVR #### [facility] ([facility]) [address] [place] [address] VIR Bilirubin.indirect [Mass/Vol] mg/dL Normal <=0.4 [facility] Comment on above: Performed By: #### L IVR #### [facility] ([facility]) [address] [place] [address] VIR Protein [Mass/Vol] 6.6 g/dL Normal 6.0-8.0 [facility] Comment on above: Performed By: #### L IVR #### [facility] ([facility]) [address] [place] [address] VIR TRANSGLUTAMINASE IGAon 10-17 TTG AB IGA <1.2 Normal <4.0 (Negative) [facility] Comment on above: Result Comment: Test Performed by: [facility] [address] [place] [address] Glass Installer: Jair Jackson Ph.D.; CLIA# [id number] Performed By: #### T TGA ####[facility] ([facility])[address] [place] [address] VIR CBC WITH AUTO DIFFERENTIALon 10-07-2024 BASOPHILS ABSOLUTE COUNT (10*3/UL) BY AUTOMATED COUNT 0.1 10*3/uL Normal 0.0-0.2 [facility] Comment on above: Performed By: #### C BCA #### [facility] ([facility]) [address] [place] [address] VIR BASOPHILS RELATIVE PERCENT BY AUTOMATED COUNT 0.6 % Normal [facility] Comment on above: Performed By: #### C BCA #### [facility] ([facility]) [address] [place] [address] VIR CELLAVISION DIFFERENTIAL TYPE AUTOMATED DIFFERENTIAL Normal [facility] Comment on above: Performed By: #### C BCA #### [facility] ([address] [place] [address] VIR Eosinophils (Bld) [#/Vol] 0.4 10*3/uL Normal 0.0-0.4 [facility] Comment on above: Performed By: #### C BCA #### [facility] ([address] [place] [address] VIR EOSINOPHILS RELATIVE PERCENT BY AUTOMATED COUNT 3.8 % Normal [facility] Comment on above: Performed By: #### C BCA #### [facility] ([address] [place] [address] VIR Erythrocyte distribution width (RBC) [Ratio] 14.0 % Normal 11.5-15 [facility] Comment on above: Performed By: #### C BCA #### [facility] ([address] [place] [address] VIR Hematocrit (Bld) [Volume fraction] 42.3 % Normal 35-47 [facility] Comment on above: Performed By: #### C BCA #### [facility] ([address] [place] [address] VIR Hemoglobin (Bld) [Mass/Vol] 14.7 g/dL Normal 11.7-15.5 [facility] Comment on above: Performed By: #### C BCA #### [facility] ([address] [place] [address] VIR LYMPHOCYTES ABSOLUTE COUNT (10*3/UL) BY AUTOMATED COUNT 3.0 10*3/uL Normal 1.0-3.5 [facility] Comment on above: Performed By: #### C BCA #### [facility] ([address] [place] [address] VIR LYMPHOCYTES RELATIVE PERCENT BY AUTOMATED COUNT 27.0 % Normal [facility] Comment on above: Performed By: #### C BCA #### [facility] ([address] [place] [address] VIR MCH (RBC) [Entitic mass] 29.2 pg Normal 27-34 [facility] Comment on above: Performed By: #### C BCA #### [facility] ([address] [place] [address] VIR MCHC (RBC) [Mass/Vol] 34.7 g/dL Normal 32-36 [facility] Comment on above: Performed By: #### C BCA #### [facility] ([address] [place] [address] VIR MCV (RBC) [Entitic vol] 84 fL Normal 80-100 [facility] Comment on above: Performed By: #### C BCA #### [facility] ([address] [place] [address] VIR MONOCYTES ABSOLUTE COUNT (10*3/UL) BY AUTOMATED COUNT 0.7 10*3/uL Normal 0.0-0.9 [facility] Comment on above: Performed By: #### C BCA #### [facility] ([address] [place] [address] VIR MONOCYTES RELATIVE PERCENT BY AUTOMATED COUNT 6.3 % Normal [facility] Comment on above: Performed By: #### C BCA #### [facility] ([address] [place] [address] VIR NEUTROPHILS ABSOLUTE COUNT BY AUTOMATED COUNT 7.0 10*3/uL High 1.5-6.6 [facility] Comment on above: Performed By: #### C BCA #### [facility] ([address] [place] [address] VIR NEUTROPHILS RELATIVE PERCENT BY AUTOMATED COUNT 62.3 % Normal [facility] Comment on above: Performed By: #### C BCA #### [facility] ([address] [place] [address] VIR Platelet mean volume (Bld) [Entitic vol] 8.4 fL Normal 7-12 [facility] Comment on above: Performed By: #### C BCA #### [facility] ([address] [place] [address] VIR Platelets (Bld) [#/Vol] 376 10*3/uL Normal 150-450 [facility] Comment on above: Performed By: #### C BCA #### [facility] ([facility]) [address] [place], [place] [address] [address] VIR RBC COUNT 5.03 X10E12/L Normal 3.8-5.2 [facility] Comment on above: Performed By: #### C BCA #### [facility] ([address] [place] [address] VIR WBC (Bld) [#/Vol] 11.2 10*3/uL High 4-11 [facility] Comment on above: Performed By: #### C BCA #### [facility] ([address] [place] [address] VIR COMPREHENSIVE METABOLIC PANE All 10-07-2024 Albumin [Mass/Vol] 3.5 g/dL Normal 3.2-5.3 [facility] Comment on above: Performed By: #### C MP #### [facility] ([address] [place] [address] VIR ALP [Catalytic activity/Vol] 61 U/L Normal 39-130 [facility] Comment on above: Performed By: #### C MP #### [facility] ([address] [place] [address] VIR ALT [Catalytic activity/Vol] 45 U/L High <=31 [facility] Comment on above: Performed By: #### C MP #### [facility] ([address] [place] [address] VIR Anion gap [Moles/Vol] 10 mmol/L Normal 5-15 [facility] Comment on above: Performed By: #### C MP #### [facility] ([address] [place] [address] VIR AST [Catalytic activity/Vol] 26 U/L Normal <=41 [facility] Comment on above: Performed By: #### C MP #### [facility] ([address] [place] [address] VIR Bilirubin [Mass/Vol] 0.6 mg/dL Normal 0.3-1.2 [facility] Comment on above: Performed By: #### C MP #### [facility] ([address] [place] [address] VIR Calcium [Mass/Vol] 9.2 mg/dL Normal 8.5-10.5 [facility] Comment on above: Performed By: #### C MP #### [facility] ([address] [place] [address] VIR Chloride [Moles/Vol] 104 mmol/L Normal 98-109 [facility] Comment on above: Performed By: #### C MP #### [facility] ([address] [place] [address] VIR CO2 [Moles/Vol] 24 mmol/L Normal 22-32 [facility] Comment on above: Performed By: #### C MP #### [facility] ([address] [place] [address] VIR Creatinine [Mass/Vol] 0.77 mg/dL Normal 0.40-1.00 [facility] Comment on above: Result Comment: METH OD TRACEABLE TO IDMS STANDARD Performed By: #### C MP #### [facility] ([address] [place] [address] VIR EGFR (CKD-EPI) NON-RACE DEPENDENT >^90 Normal >=60 [facility] Comment on above: Result Comment: eGFR not reported due to non-numeric value for Creatinine. Reported eGFR is based on the CKD-EPI 2020 equation that does not use a race coefficient. Performed By: #### C MP #### [facility] ([address] [place] [address] VIR Glucose [Mass/Vol] 96 mg/dL Normal 65-99 [facility] Comment on above: Performed By: #### C MP #### [facility] ([address] [place] [address] VIR Potassium [Moles/Vol] 3.5 mmol/L Normal 3.5-5.0 [facility] Comment on above: Performed By: #### C MP #### [facility] ([address] [place] [address] VIR Protein [Mass/Vol] 7.2 g/dL Normal 6.0-8.0 [facility] Comment on above: Performed By: #### C MP #### [facility] ([address] [place] [address] VIR Sodium [Moles/Vol] 138 mmol/L Normal 134-146 [facility] Comment on above: Performed By: #### C MP #### [facility] ([address] [place] [address] VIR Urea nitrogen [Mass/Vol] 11 mg/dL Normal 5-23 [facility] Comment on above: Performed By: #### C MP #### [facility] ([address] [place] [address] VIR LIPASEon 10-07-2024 Lipase [Catalytic activity/Vol] 48 U/L High 17-40 [facility] Comment on above: Performed By: #### L IPA #### [facility] ([address] [place] [address] VIR MAGNESIUMon 10-07-2024 Magnesium [Mass/Vol] 1.7 mg/dL Low 1.8-2.6 [facility] Comment on above: Performed By: #### M G #### [facility] ([facility]) [address] [place] [place] [address] VIR TROPONIN I, HIGH SENSITIVITY 0 HOURon 10-07-2024 TROPONIN I, HIGH SENSITIVITY <^2 Normal <16 [facility] Comment on above: Performed By: #### T NIHS0 #### [facility] ([facility]) [address] [place] [place] [address] VIR IGP,APTIMA HPV,AGE GDLNon AGE GDLN ACOG TESTING Note . [facility] Comment on above: TESTS RESULT FLAG UN ITS REF RANGE LAB Clinician Provided Cytology Information Source.............Cervix;Endocervix No. of containers..01 ThinPrep Vial Age Algo ACOG Crystal... -28 03 FLAG LEGEND: L-Low Normal,H-High Normal,LL-Alert Low,HH-Alert High <-Panic Low,>-Panic High,A-Abnormal,AA-Critical Abnormal Performed at: 01 = [facility] [place] [phone] Llaa Juarez MD, IGP, RFX APTIMA HPV ASCU Note . [facility] Comment on above: TESTS RESULT FLAG UN ITS REF RANGE LAB DIAGNOSIS: 02 NEGATIVE FOR INTRAEPITHELIAL LESION OR MALIGNANCY. Specimen adequacy: 02 Satisfactory for evaluation. Endocervical and/or squamous metaplastic cells (endocervical component) are present. Performed by: 02 Pramod Lopez, Medical Certification Specialist ([facility]) . 02 Note: Note 03 The Pap smear is a screening test designed to aid in the detection of premalignant and malignant conditions of the uterine cervix. It is not a diagnostic procedure and should not be used as the sole means of detecting cervical cancer. Both false-positive and false-negative reports do occur. Test Methodology: Note 03 This liquid based ThinPrep(R) pap test was screened with the use of an image guided system. . 02 The HPV DNA reflex criteria were not met with this specimen result therefore, no HPV testing was performed. FLAG LEGEND: L-Low Normal,H-High Normal,LL-Alert Low,HH-Alert High <-Panic Low,>-Panic High,A-Abnormal,AA-Critical Abnormal Performed at: 02 [facility] [place] [facility] [address] [place] [phone] Andre Mccann MD, 03 WB [facility] [address] [phone] Lala Juarez MD, Performed at: =G - [facility] [address], [place] [id number] Glass Installer: Lala Juarez MD, Phone: [phone] Performed at: [facility] [address] [place], [place] [id number] Glass Installer: Andre Mccann MD, Phone: [phone] [facility] ENDOCERVIX CLINISYSD [facility] CBC AND AUTO DIFFon 04-10-19 25 ABSOLUTE BASOPHIL 0.0 X10E9/L Normal 0.0-0.2 [facility] Comment on above: Performed By: #### C YURI, CBCA, 3039-04, #### [facility] ([id number]) [address] [facility] [place] [address] ABSOLUTE NEUTROPHIL 15.2 X10E9/L High 1.5-6.6 [facility] Comment on above: Performed By: #### C MP, CBCA, 3039-04, #### [facility] ([id number]) [address] [place] [address] Basophils/100 WBC (Bld) 0.3 % Normal [facility] Comment on above: Performed By: #### C MP, CBCA, 3039-04, #### [facility] ([id number]) [address] [facility] [place] [address] Eosinophils (Bld) [#/Vol] 0.0 10*3/uL Normal 0.0-0.4 [facility] Comment on above: Performed By: #### C MP, CBCA, 3, #### [facility] ([id number]) [address] [place] [address] Eosinophils/100 WBC (Bld) 0.2 % Normal [facility] Comment on above: Performed By: #### C MP, CBCA, 3, #### [facility] ([id number]) [address] [place] [address] Erythrocyte distribution width (RBC) [Ratio] 14.9 % Normal 11.5-15.0 [facility] Comment on above: Performed By: #### C YURI, CBCA, 3039-04, #### [facility] ([id number]) [address] [place] [address] Hematocrit (Bld) [Volume fraction] 42.7 % Normal 35-47 [facility] Comment on above: Performed By: #### C YURI, CBCA, 3039-04, #### [facility] ([id number]) [address] [facility] [place] [address] Hemoglobin (Bld) [Mass/Vol] 14.3 g/dL Normal 11.7-15.5 [facility] Comment on above: Performed By: #### C YURI, CBCA, 3039-04, #### [facility] ([id number]) [address] [place] [address] Lymphocytes (Bld) [#/Vol] 0.6 10*3/uL Low 1.0-3.5 [facility] Comment on above: Performed By: #### C YURI, CBCA, 3039-04, #### [facility] ([id number]) [address] [place] [address] Lymphocytes/100 WBC (Bld) 3.7 % Normal [facility] Comment on above: Performed By: #### C YURI, CBCA, 3039-04, #### [facility] ([id number]) [address] [place] [address] MCH (RBC) [Entitic mass] 27.9 pg Normal 27-34 [facility] Comment on above: Performed By: #### C YURI, CBCA, 3039-04, #### [facility] ([id number]) [address] [place] [address] MCHC (RBC) [Mass/Vol] 33.4 g/dL Normal 32-36 [facility] Comment on above: Performed By: #### C YURI, CBCA, 03, #### [facility] ([id number]) [address] [place] [address] MCV (RBC) [Entitic vol] 84 fL Normal 80-100 [facility] Comment on above: Performed By: #### C MP, CBCA, 3, #### [facility] ([id number]) [address] [place] [address] Monocytes (Bld) [#/Vol] 0.6 10*3/uL Normal 0-0.9 [facility] Comment on above: Performed By: #### C MP, CBCA, 3039-04, #### [facility] ([id number]) [address] [place] [address] Monocytes/100 WBC (Bld) 3.5 % Normal [facility] Comment on above: Performed By: #### C MP, CBCA, 3039-04, #### [facility] ([id number]) [address] [place] [address] Neutrophils/100 WBC (Bld) 92.3 % Normal [facility] Comment on above: Performed By: #### C MP, CBCA, 3039-04, #### [facility] ([id number]) [address] [place] [address] Platelet mean volume (Bld) [Entitic vol] 8.2 fL Normal 7-12 [facility] Comment on above: Performed By: #### C MP, CBCA, 3039-04, #### [facility] ([id number]) [address] [place] [address] Platelets (Bld) [#/Vol] 368 10*3/uL Normal 150-450 [facility] Comment on above: Performed By: #### C MP, CBCA, 03, #### [facility] ([id number]) [address] [place] [address] RBC COUNT 5.11 X10E12/L Normal 3.80-5.20 [facility] Comment on above: Performed By: #### C ZAID WELCH, 3039-04, #### [facility] ([id number]) [address] [place] [address] WBC (Bld) [#/Vol] 16.4 10*3/uL High 4.0-11.0 [facility] Comment on above: Performed By: #### C YURI CBCSumeet, 3039-04, #### [facility] ([id number]) [address] [place] [address] COMPREHENSIVE METABOLIC PANE All 04-10-2024 Albumin [Mass/Vol] 3.4 g/dL Normal 3.2-5.3 [facility] Comment on above: Performed By: #### C ZAID WELCH, 3039-04, #### [facility] ([id number]) [address] [place] [address] ALP [Catalytic activity/Vol] 63 U/L Normal 39-130 [facility] Comment on above: Performed By: #### C ZAID WELCH, 3039-04, #### [facility] ([id number]) [address] [place] [address] ALT [Catalytic activity/Vol] 17 U/L Normal 0-31 [facility] Comment on above: Performed By: #### C YUIR CBCSumeet, 3039-04, #### [facility] ([id number]) [address] [place] [address] Anion gap [Moles/Vol] 12 mmol/L Normal 5-15 [facility] Comment on above: Performed By: #### C YURI CBCSumeet, 3039-04, #### [facility] ([id number]) [address] [place] [address] AST [Catalytic activity/Vol] 20 U/L Normal 0-41 [facility] Comment on above: Performed By: #### C MP, CBCA, 3040-3, #### [facility] ([id number]) [address] [place] [address] Bilirubin [Mass/Vol] 0.6 mg/dL Normal 0.3-1.2 [facility] Comment on above: Performed By: #### C YURI CBCSumeet, 3039-3, #### [facility] ([id number]) [address] [place] [address] Calcium [Mass/Vol] 8.8 mg/dL Normal 8.5-10.5 [facility] Comment on above: Performed By: #### C YURI CBCSumeet, 3039-3, #### [facility] ([id number]) [address] [facility] [place] [address] Chloride [Moles/Vol] 104 mmol/L Normal 98-109 [facility] Comment on above: Performed By: #### C YURI CBCSumeet, 3039-04, #### [facility] ([id number]) [address] [place] [address] CO2 [Moles/Vol] 23 mmol/L Normal 22-32 [facility] Comment on above: Performed By: #### C ZAID WELCH, 3, #### [facility] ([id number]) [address] [place] [address] Creatinine [Mass/Vol] 0.76 mg/dL Normal 0.40-1.00 [facility] Comment on above: Result Comment: METH OD TRACEABLE TO IDMS STANDARD Performed By: #### C ZAID WELCH, 0-3, #### [facility] ([id number]) [address] [place] [address] eGFR (CKD-EPI) NON-RACE DEPENDENT >90 Normal >59 [facility] Comment on above: Result Comment: Reported eGFR is based on the CKD-EPI 2020 equation that does not use a race coefficient. Performed By: #### C YURI, CBCA, 0-3, #### [facility] ([id number]) [address] [place] [address] Glucose [Mass/Vol] 124 mg/dL High 65-99 [facility] Comment on above: Performed By: #### C YURI CBCA, 0-3, #### [facility] ([id number]) [address] [place] [address] Potassium [Moles/Vol] 4.0 mmol/L Normal 3.5-5.0 [facility] Comment on above: Performed By: #### C YURI CBCSumeet, 3039-04, #### [facility] ([id number]) [address] [place] [address] Protein [Mass/Vol] 7.5 g/dL Normal 6.0-8.0 [facility] Comment on above: Performed By: #### C YURI CBCA, 3039-04, #### [facility] ([id number]) [address] [place] [address] Sodium [Moles/Vol] 139 mmol/L Normal 134-146 [facility] Comment on above: Performed By: #### C YURI CBCA, 3039-04, #### [facility] ([id number]) [address] [place] [address] Urea nitrogen [Mass/Vol] 11 mg/dL Normal 5-23 [facility] Comment on above: Performed By: #### C YURI CBCA, 3039-04, #### [facility] ([id number]) [address] [place] [address] CT ABDOMEN AND PELVIS WO CON Ton [...] Rocha DO on 04/10/2024 10:28 PM Normal [facility] HCG ( test) Ql (U)o n 04-10-2024 Beta HCG ( test) Ql (U) Negative Normal NEG [facility] Comment on above: Performed By: #### 2 106-3 #### [facility] ([id number]) [address] [address] LIPASEon 04-10-2024 Lipase [Catalytic activity/Vol] 29 U/L Normal 17-40 [facility] Comment on above: Performed By: #### C YURI, CBCA, 3040-3, 23468-5 #### [facility] ([id number]) [address] [place] [address] MAGNESIUMon 04-10-2024 Magnesium [Mass/Vol] 1.8 mg/dL Normal 1.8-2.6 [facility] Comment on above: Performed By: #### C YURI, CBCA, 3040-3, 45480-2 #### [facility] ([id number]) [address] [place] [address] URN MACROSCOPIC NURon 2024 ER EXTRA URINES ER EXTRA URINE ORDER IN PROCESS Normal [facility] Comment on above: Performed By: #### N UM #### [facility] ([id number]) [address] [facility] [place] [address] XR ELBOW RT MIN 3 VWSon 03-31 XR ELBOW RT MIN 3 VWS XR ELBOW RT MIN 3 VWS 3 VIEWS RIGHT ELBOW HISTORY: Fall, pain COMPARISON: 01/28/2024 IMPRESSION: * No acute fracture or malalignment in the right elbow. * No right elbow joint effusion. Finalized by Ana Narvaez MD on 04/10/2024 12:35 PM Normal [facility] XR WRIST RT MIN 3 VWSon 03-31 XR WRIST RT MIN 3 VWS XR [...] Whitmore DO on 04/10/2024 12:36 PM Normal [facility] XR ELBOW RT MIN 3 VWSon 12-31 [...] Roldan MD on 01/28/2024 1:26 PM Normal [facility] All 09-10-2023 L Specimen: [id number] Received: 09/12/23 Status: SHWETA Shelton Num: [id number] Spec Type: Surgical Subm Dr: Alvarado Perry Tissues: A Placenta - 3rd Trimester (Greater than 28 weeks) (PLACENTA) Procedures: HE/5, Gross/Micro L5 Age/ Patient Sex Location Account Attending Physician Vianey Kramer 28/F [facility] [id number] Alvarado Perry SPEC NUM: [id number] RECD: 09/12/23 STATUS: SHWETA SHELTON NUM: [id number] CHERRI: 09/10/[address] [facility] [address]: Alvarado Perry ENTERED: 09/12/[address] [facility] DR: Brianna,Lab SPEC TYPE: Surgical DEPT: LATISHA [place] ORDERED: HE/5, Gross/Micro L5 ORDERED: HE/5, Gross/Micro L5 Pathological Diagnosis Placental removal, section [...] disc margin. Intramembranous blood vessels are absent. -------- Specimen: [id number] Received: 09/12/23 Status: SHWETA Cat Num: [id number] Spec Type: Surgical Subm Dr: Alvarado Perry Tissues: A Placenta - 3rd Trimester (Greater than 28 weeks) (PLACENTA) Procedures: Zion SCHULTE L5 -------- Patient: Vianey Kramer [id number] (Continued) -------- Specimen: [id number] Received: 09/12/23 (Continued) Gross Description (Continued) Signed (signature on file) Evon Young MD 09/15/23 1846 -------- Specimen: [id number] Received: 09/12/23 Status: SHWETA Shelton Num: [id number] Spec Type: Surgical Subm Dr: Alvarado Perry Tissues: A Placenta - 3rd Trimester (Greater than 28 weeks) (PLACENTA) Procedures: Kelley SCHULTE/Emiliana L5 -------- Patient: Vianey Kramer [id number] (Continued) -------- Specimen: [id number] Received: 09/12/23-1255 (Continued) Gross Description (Continued) The chorionic plate [...] performed supporting the above interpretation CPT Codes 99060 -------- -------- Specimen: [id number] Received: 09/12/23 Status: SHWETA Shelton Num: [id number] Spec Type: Surgical Subm Dr: Alvarado Perry Tissues: A Placenta - 3rd Trimester (Greater than 28 weeks) (PLACENTA) Procedures: HE/5, Gross/Micro L5 -------- Patient: Vianey Kramer [id number] (Continued) (more content not included)... Normal [facility] Ultrasound officeon 06-17-19 Radiology Study observation (narrative) [facility] Radiology Study observation (narrative) [facility] Radiology Study observation (narrative) [facility] Radiology Study observation (narrative) [facility] Radiology Study observation (narrative) [facility] No Panel Informationon 06-13 SEE SCANNED REPORT MANUAL LY TRANSCRIBED RESULTS [facility] Ultrasound officeon 05-26-19 24 SEE SCANNED REPORT MANUAL LY TRANSCRIBED RESULTS [facility] Ultrasound officeon 05-12-19 24 SEE SCANNED REPORT MANUAL LY TRANSCRIBED RESULTS [facility] Chlamydia/GC by PCR Júnior Sw abon 04-14-2023 Chlamydia Dna(Pcr) Negative [facility] Gonorrhoeae Dna(Pcr) Negative [facility] Urinalysis macro (dipstick) panel (U)on 04-14-2023 Bilirubin, UA Negative Negative - 4(70) +++ mg/dL [facility] Blood, UA Negative Negative - 50 Bill/mcL [facility] Clarity, UA Clear [facility] re Color, UA Yellow [facility] Glucose, UA Negative Negative - 1999(110) ++++ mg/dL [facility] Interpretation and review of laboratory results Abnormal [facility] Ketones, UA Positive Negative - 160(16) ++++ mg/dL [facility] Comment on above: 40 mg Leukocytes, UA Negative Negative - 500+++ Simon/mcL [facility] Nitrite, UA Negative Negative - Positive [facility] pH, UA 7.0 5 - 9 [facility] e Protein, UA Trace Negative - 1999(20) ++++ mg/dL [facility] Spec Grav, UA 1.025 1 - 1.03 [facility] Urobilinogen, UA 0.2 0.2 - 12 mg/dL [facility] e Unlisted Genetic Teston 02-28 SEE SCANNED REPORT MANUAL LY TRANSCRIBED RESULTS [facility] HIV 1&2 AB/AG Screen (P24 AG )on 03-02-2023 HIV 1&2 AB/AG Non-Reactive [facility] Hepatitis B surface antigeno n 03-02-2023 Hepatitis B Surface Antigen Negative [facility] No Panel Informationon 03-02 [facility] Rubella IGG immune statuson 03-02-2023 Rubella immune IgG 5.50 [facility] Syphilis Total(Unknown Syphi lis Status)on 03-02-2023 Syphilis Non-Reactive [facility] No Panel Informationon 03-01 [facility] TSHon 03-01-2023 Thyroid Stimulating (3Rd Generation) Hormone/ Tsh 1.055 [facility] Type and screenon 03-01-2023 Abo/Rh(D) Positive [facility] Ultrasound officeon 02-18-20 SEE SCANNED REPORT MANUAL LY TRANSCRIBED RESULTS [facility] IR INJ ARTHROGRAM HIP LEFTon 02-13-2022 IR INJ ARTHROGRAM HIP LEFT EXAMINATION: FLUOROSCOPIC GUIDED LEFT HIP ARTHROGRAM, 02/12/2022 8:45 am COMPARISON: None. HISTORY: ORDERING SYSTEM PROVIDED HISTORY: Tear of left acetabular labrum, initial encounter TECHNOLOGIST PROVIDED HISTORY: Is the patient ?->No FLUOROSCOPY DOSE AND TYPE OR TIME AND EXPOSURES: 54 seconds; D AP 83 cGy cm2 PROCEDURE: NETTING INSPECTOR: Gaudencio Chávez MD Informed consent was obtained [...] Gaudencio Chávez MD 02/12/22 Final result Normal [facility] IR INJ ARTHROGRAM HIP LEFTon 02-12-2022 Successful fluoroscopic-guided left hip arthrogram. Patient was transferred to MRI for further imaging. [facility] RIS CONSOLIDATED EXAMINATION: FLUOROSCOPIC GUIDED LEFT HIP ARTHROGRAM, 02/12/2022 8:45 am COMPARISON: None. HISTORY: ORDERING SYSTEM PROVIDED HISTORY: Tear of left acetabular labrum, initial encounter TECHNOLOGIST PROVIDED HISTORY: Is the patient ?->No FLUOROSCOPY DOSE AND TYPE OR TIME AND EXPOSURES: 54 seconds; D AP 83 cGy cm2 PROCEDURE: NETTING INSPECTOR: Gaudencio Chávez MD Informed consent was obtained [...] is sent for subsequent MRI. EBL: None [facility] Gaudencio Escalona MD - 02/12/2022 EXAMINATION: FLUOROSCOPIC GUIDED LEFT HIP ARTHROGRAM, 02/12/2022 8:45 am COMPARISON: None. HISTORY: ORDERING SYSTEM PROVIDED HISTORY: Tear of left acetabular labrum, initial encounter TECHNOLOGIST PROVIDED HISTORY: Is the patient ?->No FLUOROSCOPY DOSE AND TYPE OR TIME AND EXPOSURES: 54 seconds; D AP 83 cGy cm2 PROCEDURE: NETTING INSPECTOR: Gaudencio Chávez MD Informed consent was obtained [...] was transferred to MRI for further imaging. [facility] Phone: Radiology Study observation (narrative) [facility] Phone: IR INJ ARTHROGRAM HIP LEFTOr dered By: Gaudencio Chávez on 02-12-2022 [facility] Phone: MRI HIP LEFT W CONTRASTon MRI [...] Anthony Villanueva MD 02/12/22 Final result Normal [facility] SARS-CoV-2 (COVID-19) RNA NA A+probe Ql (Resp)on 11-11-2021 SARS-CoV-2 (COVID-19) RNA ANNABELLE+probe Ql (Unsp spec) Positive [employer] Other PAP ACOG PANEL 2: 21 to 29on 08-17-2021 . . Normal [facility] Comment on above: Performed By: #### [id number] #### [facility] [address] [address] [address] Cesar Young Age Gdln ACOG Testing - Normal [facility] Comment on above: Performed By: #### [id number] #### [facility] [address] [address] [address] Cesar Young DIAGNOSIS: Comment [facility] Comment on above: Result Comment: NEGA TIVE FOR INTRAEPITHELIAL LESION OR MALIGNANCY. Performed By: #### [id number] #### [facility] [address] [address] [address] Cesar Young Methodology: Comment [facility] Comment on above: Result Comment: This liquid based ThinPrep(R) pap test was screened with the use of an image guided system. Performed By: #### [id number] #### [facility] [address] [place] [address] Dr. Cesar Young Note: Comment Normal [facility] Comment on above: Result Comment: The Pap smear is a screening test designed to aid in the detection of premalignant and malignant conditions of the uterine cervix. It is not a diagnostic procedure and should not be used as the sole means of detecting cervical cancer. Both false-positive and false-negative reports do occur. . Performed By: #### [id number] #### [facility] [address] [place] [address] Dr. Cesar Young Performed by: Comment Normal [facility] Comment on above: Result Comment: Linda Taveras Medical Certification Specialist (ASCP) Performed By: #### [id number] #### [facility] [address] [place] [address] Dr. Cesar Young Reflex Criteria: Comment Normal [facility] Comment on above: Result Comment: The HPV DNA reflex criteria were not met with this specimen result therefore, no HPV testing was performed. . Performed By: #### [id number] #### [facility] [address] [place] [address] Dr. Cesar Young Specimen adequacy: Comment Normal [facility] Comment on above: Result Comment: Sati sfactory for evaluation. Endocervical and/or squamous metaplastic cells (endocervical component) are present. Performed By: #### 4 [id number] #### [facility] [address] [place] [address] Dr. Cesar Young XR hand LT min 3V*on 022 XR hand LT min 3V* [facility] [employer] Other XR hand LT min 3V* [facility] [employer] Other XR hand LT min 3V* [address] [place] [address] [employer] Other XR hand LT min 3V* [place] [address] [employer] Other XR hand LT min 3V* XRay Report [employer] Other XR hand LT min 3V* Signed [employer] Other XR hand LT min 3V* Patient: Vianey Chen MR#: [id number] [employer] Other XR hand LT min 3V* 0 [employer] Other XR hand LT min 3V* : 1995 Acct:[id number] [employer] Other XR hand LT min 3V* Age/Sex: 26 / F ADM Date: 08/17/21 [employer] Other XR hand LT min 3V* Loc: XDUCLY Room: Type: [facility] [employer] Other XR hand LT min 3V* Attending Dr: Julieth HERNANDEZ [employer] Other XR hand LT min 3V* Copies to: DAVID Salmeron [employer] Other XR hand LT min 3V* Ordering Provider: DAVID Salmeron [employer] Other XR hand LT min 3V* Date of Service: 08/17/21 [employer] Other XR hand LT min 3V* XR/XR hand LT min 3V*: Pain of left thumb [employer] Other XR hand LT min 3V* LEFT HAND - 4 views [employer] Other XR hand LT min 3V* CLINICAL DATA: Patient injured left hand yesterday and has bruising, pain and swelling over the [employer] Other XR hand LT min 3V* metacarpal phalangea l joint of the thumb and at the distal first metacarpal [employer] Other XR hand LT min 3V* COMPARISON: None [employer] Other XR hand LT min 3V* AP, lateral and oblique views were obtained along with a supplemental lateral view at the thumb. [employer] Other XR hand LT min 3V* There is no evidence of fracture or dislocation. There are no significant soft tissue [employer] Other XR hand LT min 3V* abnormalities. No rt [employer] Other XR hand LT min 3V* XR/XR hand LT min 3V* [employer] Other XR hand LT min 3V* IMPRESSION: [employer] Other XR hand LT min 3V* NO ACUTE BONY INJURY. [employer] Other XR hand LT min 3V* Impression dictated by: Ailin Borrego M.D.08/17/2021 2:53 PM [employer] Other XR hand LT min 3V* Dictation Location: [place] [address] [employer] Other XR hand LT min 3V* Transcribed By: GONZALO 08/17/21 [facility] [employer] Other XR hand LT min 3V* Dictated By: Ailin Borrego MD 08/17/21 [facility] [employer] Other XR hand LT min 3V* Signed By: [employer] Other XR hand LT min 3V* 08/17/21 [facility] [employer] Other PREG HCG QUALon 06-04-2021 , QUAL Negative Normal NEGATIVE [facility] Comment on above: Performed By: #### P REG #### [facility] [address] [place] [address] Dr. Cesar Young Covid-19 PCR (CVDTB)on SARS-CoV-2 (COVID-19) RNA ANNABELLE+probe Ql (Unsp spec) Not detected Normal NOT DETECTED [facility] Comment on above: Result Comment: This test is not yet approved or cleared by the [place] FDA. When there are no FDA-approved or cleared tests available, and other criteria are met, FDA can make tests available under an emergency access mechanism called an Emergency Use Authorization (EUA). The EUA for this test is supported by the [place] of Health and Human Service's (HHS's) declaration [...] consistent with SARS-CoV-2. Performed By: #### [facility] #### [facility] [id number] Cesar Young [id number] 03-28-2021 SARS-CoV-2 (COVID-19) RNA ANNABELLE+probe Ql (Unsp spec) Normal [facility] [place] Comment on above: Performed By: #### C OVID #### [id number] [place] [address] Glass Installer: Vijay Tinsley MD SARS-CoV-2 (COVID-19) RNA ANNABELLE+probe Ql (Unsp spec) Detected Abnormal NOTDET [facility] [place] Comment on above: Result Comment: The specimen is POSITIVE for SARS-Cov-2, the novel coronavirus associated with COVID-19. Júnior SARS-CoV-2 for use on the Júnior [employer]/8800 Systems is a real-time RT-PCR test intended [...] this assay. Fact sheet for Healthcare Providers: https://www.fda.gov/media/299395/download Fact sheet for Patients: https://www.fda.gov/media/749636/download METHODOLOGY: RT-PCR Results reported to the appropriate Health Department Performed By: #### C OVID #### [employer] [facility] [place] [address] Glass Installer: Vijay Tinsley MD [id number] 03-27-2021 SARS-CoV-2 (COVID-19) RNA ANNABELLE+probe Ql (Unsp spec) NOT REPORTED Normal [facility] [place] Comment on above: Performed By: #### C OVID #### [employer] [address] [place] [id number] Glass Installer: Vijay Tinsley MD CBC Auto Differentialon 04-01 Basophils (Bld) [#/Vol] 0.10 10*3/uL [employer] Phone: Basophils/100 WBC (Bld) 1 % 0 - 2 % [employer] Phone: Differential Type NOT REPORTED [employer] Phone: Eosinophils (Bld) [#/Vol] 0.20 10*3/uL [employer] Phone: Eosinophils/100 WBC (Bld) 2 % 0 - 4 % [employer] Phone: Erythrocyte distribution width (RBC) [Ratio] 13.9 % 11.5 - 14.9 % [employer] Phone: Hematocrit (Bld) [Volume fraction] 43.1 % 36 - 46 % [employer] Phone: Hemoglobin (Bld) [Mass/Vol] 14.2 g/dL 12 - 16 g/dL [employer] Phone: Lymphocytes (Bld) [#/Vol] 2.10 10*3/uL [employer] Phone: Lymphocytes/100 WBC (Bld) 25 % 24 - 44 % [employer] Phone: MCH (RBC) [Entitic mass] 28.7 pg 26 - 34 pg [employer] Phone: MCHC (RBC) [Mass/Vol] 33.0 g/dL 31 - 37 g/dL [employer] Phone: MCV (RBC) [Entitic vol] 87.2 fL 80 - 100 fL [employer] Phone: Monocytes (Bld) [#/Vol] 0.60 10*3/uL [employer] Work Phone: Monocytes/100 WBC (Bld) 7 % 1 - 7 % [employer] Phone: Platelet mean volume (Bld) [Entitic vol] 7.7 fL 6 - 12 fL [employer] Phone: Platelets (Bld) [#/Vol] 359 10*3/uL [employer] Work Phone: Platelets (Bld) [#/Vol] NOT REPORTED [employer] Phone: RBC (Bld) [#/Vol] 4.94 10*6/uL 4 - 5.2 m/uL [employer] Work Phone: RBC morphology finding Nom (Bld) NOT REPORTED [employer] Phone: Segmented neutrophils/100 WBC (Bld) 65 % 36 - 66 % [employer] Work Phone: Segs Absolute 5.40 [employer] [facility] Work Phone: WBC (Bld) [#/Vol] NOT REPORTED per 100 WBC [employer] Work Phone: WBC (Bld) [#/Vol] 8.4 10*3/uL [employer] Work Phone: WBC Morphology NOT REPORTED [employer] [facility] Work Phone: Comprehensive Metabolic Pane all 04-24-2020 Albumin [Mass/Vol] 3.9 g/dL 3.5 - 5.2 g/dL [employer] Work Phone: Albumin/Globulin [Mass ratio] NOT REPORTED [facility] Work Phone: ALP [Catalytic activity/Vol] 59 U/L 35 - 104 U/L [facility] Work Phone: ALT [Catalytic activity/Vol] 19 U/L 5 - 33 U/L [facility] Work Phone: Anion gap [Moles/Vol] 10 mmol/L 9 - 17 mmol/L [facility] Work Phone: AST [Catalytic activity/Vol] 15 U/L <32 [facility] Work Phone: Bilirubin Ql (U) <0.15 Low 0.3 - 1.2 mg/dL [facility] Work Phone: Bun/Cre Ratio NOT REPORTED [facility] Work Phone: Calcium [Mass/Vol] 9.2 mg/dL 8.6 - 10. 4 mg/dL [employer] Work Phone: Chloride [Moles/Vol] 104 mmol/L 98 - 10 7 mmol/L [facility] Work Phone: CO2 [Moles/Vol] 25 mmol/L 20 - 31 mmol/L [facility] Work Phone: Creatinine [Mass/Vol] 0.68 mg/dL 0.5 - 0.9 mg/dL [employer] Phone: GFR >60 >60 mL/min [employer] Phone: GFR Non- >60 >60 mL/min [employer] Phone: GFR/1.73 sq M predicted among non-blacks MDRD (S/P/Bld) [Vol rate/Area] [employer] Phone: Comment on above: Average GFR for 20-2 9 years old: 116 mL/min/1.73sq m Chronic Kidney Disease: <60 mL/min/1.73sq m Kidney failure: <15 mL/min/1.73sq m eGFR calculated using average adult body mass. Additional eGFR calculator available at: http://www.[employer]/Xylogenics_crcl_2012.htm GFR/1.73 sq M predicted among non-blacks MDRD (S/P/Bld) [Vol rate/Area] NOT REPORTED [employer] Phone: Glucose [Mass/Vol] 135 mg/dL High 70 - 99 mg/dL [facility] [employer] Phone: Interpretation and review of laboratory results Abnormal [employer] Phone: Potassium [Moles/Vol] 3.7 mmol/L 3.7 - 5.3 mmol/L [facility] Phone: Protein [Mass/Vol] 7.1 g/dL 6.4 - 8.3 g/dL [employer] Phone: Sodium [Moles/Vol] 139 mmol/L 135 - 144 mmol/L [employer] Phone: Urea nitrogen [Mass/Vol] 11 mg/dL 6 - 20 mg/dL [employer] Phone: Otheron 04-24-2020 Immature granulocytes (Bld) [#/Vol] NOT REPORTED 0 % [employer] Phone: US GALL[employer] RUQon 02-25-2 021 Unremarkable right upper quadrant ultrasound. [employer] Phone: EXAMINATION: RIGHT UPPER QUADRANT ULTRASOUND 04/24/2020 [...] No evidence of right upper quadrant ascites. [employer] Phone: [facility] Incoming Radiant Results From [employer] - 04/24/2020 8:18 AM EST EXAMINATION: RIGHT [...] ascites. IMPRESSION: Unremarkable right upper quadrant ultrasound. [employer] Phone: Vital Signs Date Time Vital Sign Value Performing Clinician Facility 11-22-2024 15:54-0400 Body mass index (BMI) [Ratio] 38.28 kg/m2 Laurel Jacobson NP Work Phone: [facility] [employer] 11-22-2024 15:54-0400 Body weight 88.91 kg Laurel Jacobson NP Work Phone: [facility] [employer] 11-22-2024 15:54-0400 Diastolic blood pressure 72 mm[Hg] Laurel Jacobson NP Work Phone: [facility] 11-22-2024 15:54-0400 Systolic blood pressure 112 mm[Hg] Laurel Jacobson ATHLETIC TEAM PHYSICIAN Work Phone: [facility] 04-17-2024 11:15-0500 Body mass index (BMI) [Ratio] 43.55 kg/m2 Alvarado Vicky DO Work Phone: [facility] 04-17-2024 11:15-0500 Body weight 101.15 kg Alvarado Vicky DO Work Phone: [facility] 04-17-2024 11:15-0500 Diastolic blood pressure 72 mm[Hg] Alvarado Vicky DO Work Phone: [facility] 04-17-2024 11:15-0500 Systolic blood pressure 122 mm[Hg] Alvarado Vicky DO Work Phone: [facility] 10-20-2023 11:51-0400 Body mass index (BMI) [Ratio] 43.55 kg/m2 Alvarado Vicky DO Work Phone: [facility] 10-20-2023 11:51-0400 Body weight 101.15 kg Alvarado Vicky DO Work Phone: [facility] 10-20-2023 11:51-0400 Diastolic blood pressure 70 mm[Hg] Alvarado Vicky DO Work Phone: [facility] 10-20-2023 11:51-0400 Systolic blood pressure 116 mm[Hg] Alvarado Vicky DO Work Phone: [facility] 08-10-2023 08:29-0400 Body mass index (BMI) [Ratio] 47.65 kg/m2 [place] Ybarra MD Work Phone: [facility] 08-10-2023 08:29-0400 Body weight 110.68 kg [place] Ybarra MD Work Phone: [facility] 08-10-2023 08:29-0400 Diastolic blood pressure 80 mm[Hg] [place] Ybarra MD Work Phone: [facility] 08-10-2023 08:29-0400 Heart rate 83 /min [place] Ybarra MD Work Phone: [facility] 08-10-2023 08:29-0400 Systolic blood pressure 121 mm[Hg] [place] Ybarra MD Work Phone: [facility] 07-11-2023 14:01-0400 Body mass index (BMI) [Ratio] 47.07 kg/m2 Leo Johnson MD Work Phone: [facility] 07-11-2023 14:01-0400 Body weight 109.32 kg Leo Johnson MD Work Phone: [facility] 07-11-2023 14:01-0400 Diastolic blood pressure 76 mm[Hg] Leo Johnson MD Work Phone: [facility] 07-11-2023 14:01-0400 Systolic blood pressure 114 mm[Hg] Leo Johnson MD Work Phone: [facility] 04-14-2023 10:54-0500 Body mass index (BMI) [Ratio] 44.14 kg/m2 Alvarado Vicky DO Work Phone: [facility] 04-14-2023 10:54-0500 Body weight 102.51 kg Alvarado Vicky DO Work Phone: [facility] 04-14-2023 10:54-0500 Diastolic blood pressure 70 mm[Hg] Alvarado Vicky DO Work Phone: [facility] 04-14-2023 10:54-0500 Systolic blood pressure 120 mm[Hg] Alvarado Vicky DO Work Phone: [facility] 04-12-2022 10:30-0500 Body height 152.4 cm Julieth Winkler Other [employer] Other 04-12-2022 10:30-0500 Body mass index (BMI) [Ratio] 41.59 kg/m2 Julieth Winkler Other [employer] Other 04-12-2022 10:30-0500 Body temperature 98.5 [degF] Julieth Winkler Other [employer] Other 04-12-2022 10:30-0500 Body weight 96.62 kg Julieth Winkler Other [employer] Other 04-12-2022 10:30-0500 Diastolic blood pressure 87 mm[Hg] Julieth Winkler Other [employer] Other 04-12-2022 10:30-0500 Respiratory rate 18 /min Julieth Winkler Other [employer] Other 04-12-2022 10:30-0500 SaO2% (BldA) [Mass fraction] 98 % Julieth Winkler Other [employer] Other 04-12-2022 10:30-0500 Systolic blood pressure 141 mm[Hg] Julieth Winkler Other [employer] Other 11-30-2021 17:00-0400 Body height 152.4 cm Jammie Mara Other [employer] Other 11-30-2021 17:00-0400 Body mass index (BMI) [Ratio] 39.06 kg/m2 Jammie Mara Other [employer] Other 11-30-2021 17:00-0400 Body temperature 97.6 [degF] Jammie Mara Other [employer] Other 11-30-2021 17:00-0400 Body weight 90.72 kg Jammie Terry Other [employer] Other 11-30-2021 17:00-0400 Diastolic blood pressure 84 mm[Hg] Jammie Terry Other [employer] Other 11-30-2021 17:00-0400 Respiratory rate 18 /min Jammie Terry Other [employer] Other 11-30-2021 17:00-0400 SaO2% (BldA) [Mass fraction] 99 % Jammie Terry Other [employer] Other 11-30-2021 17:00-0400 Systolic blood pressure 132 mm[Hg] Jammie Terry Other [employer] Other 11-11-2021 10:30-0400 Body height 152.4 cm Julieth Agarwalmond Other [employer] Other 11-11-2021 10:30-0400 Body mass index (BMI) [Ratio] 37.1 kg/m2 Julieth Cathi Other [employer] Other 11-11-2021 10:30-0400 Body temperature 98.1 [degF] Julieth Cathi Other [employer] Other 11-11-2021 10:30-0400 Body weight 86.18 kg Julieth Agarwalmond Other [employer] Other 11-11-2021 10:30-0400 Respiratory rate 18 /min Julieth Cathi Other [employer] Other 11-11-2021 10:30-0400 SaO2% (BldA) [Mass fraction] 99 % Julieth Agarwalmond Other [employer] Other 08-17-2021 14:55-0400 Body height 152.4 cm Julieth Agarwalmond Other [employer] Other 08-17-2021 14:55-0400 Body mass index (BMI) [Ratio] 39.84 kg/m2 Julieth Agarwalmond Other [employer] Other 08-17-2021 14:55-0400 Body temperature 97.8 [degF] Julieth Agarwalmond Other [employer] Other 08-17-2021 14:55-0400 Body weight 92.53 kg Julieth Agarwalmond Other [employer] Other 08-17-2021 14:55-0400 Diastolic blood pressure 74 mm[Hg] Julieth Cathi Other [employer] Other 08-17-2021 14:55-0400 Respiratory rate 18 /min Julieth Cathi Other [employer] Other 08-17-2021 14:55-0400 SaO2% (BldA) [Mass fraction] 99 % Julieth Cathi Other [employer] Other 08-17-2021 14:55-0400 Systolic blood pressure 134 mm[Hg] Julieth Cathi Other [employer] Other Encounters Encounter Date Encounter Type Care Provider Facility Start: 11-22-2024 End: 11-22-2024 Office outpatient visit 15 minutes Laurel Jacobson NP Work Phone: [facility] Comment on above: Breast pain; Mass of right breast, unspecified quadrant Start: 11-22-2024 End: 11-22-2024 ambulatory LAUREL JACOBSON Not Available Start: 11-22-2024 End: 11-22-2024 Bamboo flowsheet Laurel Jacobson ATHLETIC TEAM PHYSICIAN Work Phone: [facility] Start: 11-22-2024 End: 11-22-2024 Bamboo flowsheet Laurel Jacobson ATHLETIC TEAM PHYSICIAN Work Phone: [facility] Start: 10-22-2024 ambulatory [facility] Start: 10-17-2024 ambulatory [facility] Start: 10-07-2024 End: 10-07-2024 Emergency department patient visit [facility] Start: 04-17-2024 End: 04-17-2024 Bamboo flowsheet Alvarado Vicky DO Work Phone: [facility] Start: 04-17-2024 End: 04-22-2024 Bamboo flowsheet Alvarado Vicky DO Work Phone: [facility] Start: 04-17-2024 End: 04-22-2024 Clinisync Result Encounter Alvarado Vicky DO Work Phone: [facility] Unsolicited Start: 04-17-2024 End: 04-17-2024 Patient encounter procedure Alvarado Vicky DO Work Phone: [facility] Start: 04-17-2024 End: 04-17-2024 Periodic preventive med est patient 18-39 yrs Alvarado Vicky DO Work Phone: [facility] Comment on above: Well woman exam with routine gynecological exam Start: 04-17-2024 End: 04-17-2024 ambulatory ALVARADO VICKY Not Available Start: 04-10-2024 End: 04-10-2024 Emergency department patient visit [facility] Start: 04-10-2024 End: 04-10-2024 Emergency department patient visit MIRNA BENNETT [facility] Start: 01-28-2024 End: 01-28-2024 Emergency department patient visit MIRNA BENNETT [facility] Start: 10-20-2023 End: 10-20-2023 care visit Alvarado [place] DO Work Phone: [facility] Comment on above: 6 weeks f ollow-up; Encounter for initial prescription of vaginal ring hormonal contraceptive Start: 09-10-2023 End: 09-10-2023 ambulatory MD Mirna Bennett Work Phone: [facility] Work Phone: Start: 09-10-2023 End: 09-10-2023 Departed Referred MD Mirna Bennett Work Phone: [facility] Start: 08-10-2023 End: 08-10-2023 Office outpatient visit 25 minutes [place] Ybarra MD Work Phone: [facility] Comment on above: 33 weeks gestation o f (Primary Dx); Club foot of fetus affecting antepartum care of mother, single or unspecified fetus; Obesity affecting in third trimester, unspecified obesity type; Marginal insertion of umbilical cord affecting management of mother; Hypertension affecting in third trimester Start: 08-10-2023 End: 08-10-2023 ambulatory MIRNA Etelvina DONALD [facility] Start: 07-12-2023 End: 07-12-2023 Telephone encounter Edith Galvez RN Maternal- Medicine at [facility] Start: 07-11-2023 End: 07-11-2023 Office consultation new/estab patient 60 min Leo Johnson MD Work Phone: Maternal Medicine [place] Comment on above: 29 weeks gestation o f (Primary Dx); Club foot of fetus affecting antepartum care of mother, single or unspecified fetus; Obesity affecting in third trimester, unspecified obesity type; Marginal insertion of umbilical cord affecting management of mother; Enlarged thyroid gland; Hypertension, unspecified type Start: 07-11-2023 End: 07-11-[address] [facility] Start: 06-17-2023 End: 06-17-2023 Chart abstracting Leo Johnson MD Work Phone: [facility] [place] Start: 04-14-2023 End: 04-14-2023 Patient encounter procedure Alvarado Perry DO Work Phone: [facility] Start: 04-14-2023 End: 04-14-2023 Periodic preventive med est patient 18-39 yrs Alvarado Perry DO Work Phone: [facility] Comment on above: Well woman exam with routine gynecological exam; Exposure to STD; Encounter for anatomic survey; Need for maternal serum alpha-protein (MSAFP) screening; Second trimester Start: 04-12-2022 End: 04-12-2022 ambulatory Julieth Winkler Other [employer] Other Start: 04-12-2022 Office outpatient vi sit 15 minutes Julieth Cathi [facility] Start: 02-12-2022 End: 02-15-2022 ambulatory ELICIA [facility] Start: 02-12-2022 End: 02-14-2022 Subsequent hospital visit by physician [facility] Ir Nurse [facility] Special Procedures Comment on above: Tear of left acetabu lar labrum, initial encounter Start: 11-30-2021 End: 11-30-2021 ambulatory Jammie Terry Other [employer] Other Start: 11-30-2021 Office outpatient vi sit 15 minutes Jammiefeliberto Terry [facility] Start: 11-11-2021 End: 11-11-2021 ambulatory Julieth Winkler Other [employer] Other Start: 11-11-2021 Office outpatient vi sit 15 minutes Julieth Cathi [facility] Start: 08-17-2021 End: 08-17-2021 ambulatory Julieth Cathi Other [facility] [employer] Other Start: 08-17-2021 Office outpatient vi sit 15 minutes Julieth Winkler [facility] Start: 08-12-2021 End: 08-12-[address] ALVARADO PERRY Facility:H1 Start: 06-04-2021 Encounter for preprocedural laboratory examination [facility] Start: 06-04-2021 End: 06-04-2021 ambulatory [facility] Facility:H1 Start: 06-02-2021 End: 06-03-2021 ambulatory [facility] Facility:H1 Start: 06-02-2021 End: 06-03-2021 Encounter for preprocedural laboratory examination [facility] Facility:H1 Start: 07-01-2020 End: 07-01-2020 Patient encounter procedure PHYSICIAN NO FAMILY -Ultrasound [facility] Start: 06-27-2020 End: 06-27-2020 Patient encounter procedure PHYSICIAN [facility]ILY -[facility] Start: 04-24-2020 End: 04-24-2020 Subsequent hospital visit by physician Mirna FERNÁNDEZ Laboratory Comment on above: RUQ pain Start: 04-24-2020 End: 04-26-2020 Subsequent hospital visit by physician Reinier Ultrasound Rm [facility] Ultrasound Comment on above: RUQ pain Start: 05-26-2015 End: 11-24-2017 Patient encounter status [facility] Procedures Date Procedure Procedure Detail Performing Clinician Start: 04-17-2024 IGP,APTIMA HPV,AGE GDLN Alvarado Perry DO Work Phone: Start: 06-14-2023 US OFFICE Not In Sys [...] Prov Start: 02-12-2022 IR ARTHROGRAM HIP LEFT Eliciaangeles REEVES Work Phone: Start: 06-27-2020 Plain X-ray [...] Treatment Date Care Activity Detail Author Start: 04-23-2025 End: 04-23-2025 Patient encounter procedure [facility] Start: 11-22-2024 End: 11-22-2024 Patient encounter procedure 11/22/2024 3:50 PM EDT Office Visit [facility] [address] [place] [address] Laurel Jacobson, ATHLETIC TEAM PHYSICIAN [address] [place] [address] Arrived [facility] Comment on above: Arrived Start: 11-22-2024 End: 01-22-2026 MG Breast - bilateral Screening Bilateral screening mammogram Imaging Routine Breast pain Mass of right breast, unspecified quadrant Expected: 11/22/2024 (Approximate), Expires: 01/22/2026 [facility] Work Phone: Comment on above: Expected: 11/22/2024 (Approximate), Expires: 01/22/2026 Start: 11-22-2024 End: 01-22-2026 MG Breast - right Diagnostic Right diagnostic mammogram Imaging Routine Breast pain Mass of right breast, unspecified quadrant Expected: 11/22/2024 (Approximate), Expires: 01/22/2026 [facility] Comment on above: Expected: 11/22/2024 (Approximate), Expires: 01/22/2026 Start: 08-09-2024 Adult BMI Screening Adult BMI Screen ing [facility] Start: 08-09-2024 Tobacco Screening Tobacco Screening [facility] Start: 07-10-2024 Adult BMI Screening Adult BMI Screen ing [facility] Start: 07-10-2024 Tobacco Screening Tobacco Screening [facility] Start: 04-17-2024 End: 04-17-2024 Patient encounter procedure [facility] Comment on above: Arrived Start: 10-30-2023 Influenza vaccination Influenza Vacc ine [facility] Start: 08-10-2023 End: 08-10-2023 Patient encounter procedure [facility] [place] Start: 08-09-2023 End: 08-09-2023 Patient encounter procedure [facility] [place] Start: 07-11-2023 End: 07-11-2023 Patient encounter procedure [facility] [place] Start: 04-14-2023 End: 05-13-2023 Alpha fetoprotein, maternal Alpha fetoprotein, maternal Lab Routine Need for maternal serum alpha-protein (MSAFP) screening Expected: 04/14/2023 (Approximate), Expires: 05/13/2023 [facility] Comment on above: Expected: 04/14/2023 (Approximate), Expires: 05/13/2023 Start: 04-14-2023 End: 04-14-2024 US for US OB ANATOMY SINGLE W US OB CERVICAL LENGTH Imaging Routine Encounter for anatomic survey Expected: 04/14/2023 (Approximate), Expires: 04/14/2024 [facility] Comment on above: Expected: 04/14/2023 (Approximate), Expires: 04/14/2024 Start: 12-14-2022 Adult BMI Screening Adult BMI Screen ing [facility] Start: 12-14-2022 Tobacco Screening Tobacco Screening [facility] Start: 03-27-2022 Depression Monitoring Depression Mon itoring [facility] Start: 09-28-2021 Influenza vaccination Flu vaccine (# 1) [facility] Start: 04-22-2021 Influenza vaccination Flu vaccine (# 1) [facility] Phone: Comment on above: Postponed from 10/29 (Patient Refused) Start: 04-22-2021 Pneumococcal 0-64 ye ars Vaccine (1 of 1 - PPSV23) Pneumococcal 0-64 years Vaccine (1 of 1 - PPSV23) [employer] Phone: Comment on above: Postponed from 02/19 (Patient Refused) Start: 04-07-2021 DTaP,Tdap and Td Vaccines (7 - Td or Tdap) DTaP,Tdap and Td Vaccines (7 - Td or Tdap) [facility] Start: 04-07-2021 DTaP/Tdap/Td vaccine (7 - Td or Tdap) DTaP/Tdap/Td vaccine (7 - Td or Tdap) [facility] Start: 04-07-2021 DTaP/Tdap/Td vaccine (7 - Td) DTaP/Tdap/Td vaccine (7 - Td) [facility] Phone: Start: 07-01-2020 Duplex scan of lower limb veins US venous duplex LE [facility] Start: 02-20-2016 Screening for malign ant neoplasm of cervix [facility] [employer] Start: 2013 Hepatitis C screening Hepatitis C sc reen [facility] Start: 2010 HIV screening HIV screen [facility] [employer] Start: 2007 Depression Screening Depression Scre ening [facility] Start: 2001 Pneumococcal 0-64 ye ars Vaccine (1 - PCV) Pneumococcal 0-64 years Vaccine (1 - PCV) [employer] Start: 1995 COVID-19 Vaccine (#1) COVID-19 Vacci ne (#1) [employer] [facility] Start: 1995 Hepatitis C screening Hepatitis C sc jyothi [employer] Phone: CHLAMYDIA TRACHOMATI S (GENITO/STI) CHLAMYDIA TRACHOMATIS (GENITO/STI) Lab Routine Exposure to STD Ordered: 04/14/2023 [facility] [employer] Comment on above: Ordered: 04/14/2023 Cytology Cervical or vaginal smear or scraping study Pap Smear Pathology and Cytology Routine Well woman exam with routine gynecological exam Ordered: 04/14/2023 [facility] Work Phone: Comment on above: Ordered: 04/14/2023 Cytology Cervical or vaginal smear or scraping study Pap Smear Pathology and Cytology Routine Well woman exam with routine gynecological exam Ordered: 04/17/2024 [employer] Work Phone: Comment on above: Ordered: 04/17/2024 End: 02-12-2022 IR INJ ARTHROGRAM HIP LEFT IR INJ ARTHROGRAM HIP LEFT Imaging Routine Tear of left acetabular labrum, initial encounter 1 Occurrences starting 02/12/2022 until 02/12/2022 [employer] Phone: Comment on above: 1 Occurrences starti ng 02/12/2022 until 02/12/2022 Neisseria gonorrhoea e DNA [Presence] in Unspecified specimen by ANNABELLE with probe detection Neisseria gonorrhea DNA probe, direct Lab Routine Exposure to STD Ordered: 04/14/2023 [facility] [employer] Comment on above: Ordered: 04/14/2023 SURESWAB(R) ADVANCED VAGINITIS PLUS, TMA SURESWAB(R) ADVANCED VAGINITIS PLUS, TMA Pathology and Cytology Routine Exposure to STD Ordered: 04/14/2023 [facility] [employer] Comment on above: Ordered: 04/14/2023 Immunizations Immunization Date Immunization Notes Care Provider Parker rodrigues 04-07-2011 human papilloma viru s vaccine, quadrivalent Mirna Bennett [employer] Phone: 04-07-2011 tetanus toxoid, redu julia diphtheria toxoid, and acellular pertussis vaccine, adsorbed Mirna [facility] [employer] Phone: 02-04-2010 influenza virus vacc ine, unspecified formulation [facility] [employer] Phone: 12-23-2009 human papilloma viru s vaccine, quadrivalent [facility] Phone: 12-23-2009 meningococcal ACWY vaccine, unspecified formulation [facility] [employer] Phone: 04-23-2009 human papilloma viru s vaccine, quadrivalent [facility] [employer] Phone: 10-21-2000 diphtheria, tetanus toxoids and acellular pertussis vaccine [facility] [employer] Phone: 10-21-2000 measles, mumps and r ubella virus vaccine [facility] [employer] Phone: 07-25-1997 diphtheria, tetanus toxoids and acellular pertussis vaccine [facility] [employer] Phone: 07-25-1997 hepatitis B vaccine, adult dosage [facility] [address] [facility] Work Phone: 07-25-1997 hepatitis B vaccine, unspecified formulation [facility] Phone: 07-25-1997 Hib, unspecified Mirna [facility] Work Phone: 07-19-1997 poliovirus vaccine, unspecified formulation [facility] [employer] Phone: 09-27-1996 diphtheria, tetanus toxoids and acellular pertussis vaccine [facility] [employer] Phone: 09-27-1996 Hib, unspecified [facility] Work Phone: 09-27-1996 measles, mumps and r ubella virus vaccine [facility] [employer] Phone: 09-27-1996 poliovirus vaccine, unspecified formulation [facility] [employer] Phone: 1995 diphtheria, tetanus toxoids and acellular pertussis vaccine Mrina Bennett [employer] Phone: 1995 Hib, unspecified Mirna Bennett [facility] Work Phone: 1995 poliovirus vaccine, unspecified formulation [employer] Phone: 1995 diphtheria, tetanus toxoids and acellular pertussis vaccine [employer] Phone: 1995 hepatitis B vaccine, adult dosage [facility]: 1995 hepatitis B vaccine, unspecified formulation [employer] Phone: 1995 Hib, unspecified Mirna Bennett [employer] [facility] Work Phone: 1995 poliovirus vaccine, unspecified formulation [employer] Phone: 1995 hepatitis B vaccine, adult dosage [facility] [employer] Phone: 1995 hepatitis B vaccine, unspecified formulation [employer] Phone: Payers Date Payer Category Payer Self-pay [id number] 2022 [facility] [id number] 2018 Unknown [id number]. [id number] 1995 Unknown [id number] 2.16.840.1.214494.3.579.2. 593 1995 Unknown [id number] 2.16.840.1.421829.3.579.2. 593 1995 Unknown [id number] 2.16.840.1.783653.3.579.2. 593 1995 Unknown [id number] 2.16.840.1.015891.3.579.2. 176 1995 Unknown [id number] 2.16.840.1.934441.3.579.2. 176 1995 Unknown [id number] 2.16840.1.797636.3.579.2. 1286 1995 Unknown [id number] 2.16.840.1.955618.3.579.2. 1286 1995 Unknown [id number] 2.16.840.1.755431.3.579.2. 1286 1995 Unknown [id number] 2.16.840.1.348997.3.579.2. 1286 1995 Unknown [id number] 2.16.840.1.135355.3.579.2. 1286 1995 Unknown [id number] 2.16.840.1.363678.3.579.2. 128 1995 Unknown [id number] 2.16.840.1.083798.3.579.2. 128 1995 Unknown [id number] 2.16.840.1.428563.3.579.2. 1286 1995 Unknown [id number] 2.16.840.1.318750.3.579.2. 1286 1995 Unknown [id number] 2.16.840.1.200928.3.579.2. 1286 1995 Unknown [id number] 2.16.840.1.985225.3.579.2. 1259 1995 Unknown [id number] 2.16.840.1.937272.3.579.2. 1259 1959 Unknown [id number] 1.2.840.153242.1.13.239.2. 7.3.403608.315 Unknown [id number] Unknown Self Pay [id number] Unknown [id number] [id number]. 531 Worker's Compensation [employer] Misc [id number] Social History Date Type Detail Facility Start: 02-28-2007 End: 08-14-2022 Tobacco smoking status [facility] Current every day smoker [facility] [employer] Start: 02-28-2007 History of tobacco use Cigarette Smo ker [employer] Phone: Start: 04-22-2020 End: 05-12-2023 Cigarettes smoked current (pack per day) - Reported [employer] Phone: Start: 04-22-2020 End: 07-11-2023 Tobacco use and exposure Never used [employer] Phone: Start: 04-22-2020 End: 04-17-2024 Alcohol intake Current drinker of alcohol (finding) [employer] Phone: Start: 03-24-2015 Alcohol Comment occasional [employer] Work Phone: Start: 1995 Sex Assigned At Not on file [employer] Phone: Start: 1995 Sex Assigned At Female F [facility] Start: 08-14-2022 End: 05-12-2023 Sex Assigned At [facility] [employer] Other Start: 02-03-2022 History SDOH Physica l Activity DPW 0 [employer]ON [employer] Work Phone: Start: 03-27-2021 History SDOH Financial 5 [employer] Work Phone: Start: 02-03-2022 History SDOH IPV Fear 2 B ON [employer] Phone: Start: 03-27-2021 History SDOH Food Worry 1 BON [employer] Phone: Start: 01-26-2022 End: 02-05-2022 Exposure to SARS-CoV-2 (event) Not sure [employer] Start: 08-14-2022 Alcohol Comment 1-2 drinks les s than monthly in the past year [facility] Start: 01-03-2023 [facility] Start: 06-17-2023 End: 08-10-2023 Alcoholic beverage intake Ex-drinker (finding) [facility] Unknown [facility] Start: 07-11-2023 Tobacco smoking stat [facility] Ex-smoker [facility] History of tobacco use Current smoker [facility] Goals Date Patient Goal Desired Activity /State Clinical Notes 08-17-2021 to 11-22-2024 Laurel Jacobson NP - 11/22/2024 3:50 PM Cherie Diamond LPN - 04/17/2024 11:00 AM Marleny Tolbert LPN - 10/20/2023 11:40 AM Tamika Ybarra MD - 08/10/2023 9:00 AM EDT Note Date & Type Note Facility 11-22-2024 History of Present illness Narrative Images from the original note were not included. Reason for Appointment: Patient ID: Vianey Kramer is a 29 y.o. female who presents [...] nursing note reviewed. Exam conducted with a hims manager present. Vitals: Estimated body mass index is 38.28 kg/m as calculated from the following: Height [...] appearing. Diagnostic Mammogram is requested. Documented by Laurel Jacobson NP on behalf of: Laurel Jacobson NP documented in this encounter [facility] 04-17-2024 History of Present illness Narrative Reason for Appointment: Patient ID: Vianey Kramer is a 29 y.o. female who presents for Gynecologic Exam Patient presents today for Annual Exam. MEDICATIONS Current Outpatient Medications Medication Instructions albuterol HFA 90 mcg/act inhaler INHALE 1-2 PUFFS BY MOUTH EVERY 4-6 HOURS NEEDED FOR COUGH, SHORTNESS OF BREATH, OR WHEEZING. etonogestrel-ethinyl estradiol (EluRyng) 0.12-0.015 MG/24HR vaginal ring INSERT 1 RING VAGINALLY AND LEAVE IN PLACE X3 WEEKS, THEN REMOVE X1 WEEK. THEN REPEAT ondansetron ODT (ZOFRAN-ODT) 4 mg, Every 8 [...] Negative. Genitourinary: Negative. Musculoskeletal: Negative. Skin: Negative. Neurological: Negative. All other systems reviewed and are negative. Hematological: Negative. Endocrine: Negative. Allergic/Immunologic: Negative. OBJECTIVE Objective: Physical Exam Constitutional: Appearance: Normal appearance. She is well-developed. Genitourinary: Vulva normal. Breasts: Breasts are soft. Right: Normal. Left: Normal. Cardiovascular: Rate and Rhythm: Normal [...] nursing note reviewed. Exam conducted with a hims manager present. Vitals: Estimated body mass index is 43.55 kg/m as calculated from the following: Height as of 09/15/23: 5'. Weight as of this encounter: 223 lb. BP: 122/72 No LMP recorded (lmp unknown). (Menstrual status: No Periods). ASSESSMENT & PLAN ICD-10-CM 1. Well woman exam with routine gynecological exam Z01.419 Pap Smear Annual Exam: Patient presents today for an annual exam. Patient states she is doing well and has no complaints. Pap was obtained without difficulty. No orders of the defined types were placed in this encounter. Follow Up: Patient is to return in one year for annual unless needed otherwise. Documented by Ailin Diamond LPN on behalf of: Alvarado Perry DO documented in this encounter [facility] 10-20-2023 History of Present illness Narrative Reason for Appointment: Patient ID: Vianey Kramer is a 28 y.o. female who presents [...] nursing note reviewed. Exam conducted with a hims manager present. Vitals: Estimated body mass index is [...] Alvarado Perry DO documented in this encounter [facility] 08-10-2023 History of Present illness Narrative REASON FOR OFFICE VISIT: Follow up left clubfoot, chronic hypertension HISTORY OF PRESENT ILLNESS: Vianey Kramer is a pleasant 28 y.o. at 33w2d [...] in complete sentences Gravid abdomen OVERALL ASSESMENT -Vianey Kramer is a pleasant 28 y.o. at 33w0d [...] hypertension is well-controlled with medication. please notify clinical laboratory aides teacher the patient will need to be referred to pediatric Orthopedic surgery location of delivery local hospital DISPOSITION: At this point the patient is in complete care of her painter bottom. Patient does not have ultrasound and office visit scheduled with us. Thank you for allowing me to participate in the care of Vianey Kramer. If there any questions please do not hesitate to contact us. Total time spent was 35 minutes: Preparing to see the patient (e.g., review of tests) Obtaining and/or reviewing separately obtained history Performing a medically appropriate examination and/or evaluation Counseling and educating the patient/family/caregiver Ordering medications, tests, or procedures Referring and communicating with other health manager urgent care (not separately reported) Documenting clinical information in the electronic or other health record Perry Ybarra MD Maternal- Medicine [facility] [address] [facility] [address] [place] [address] [facility], the CDC, and other organizations representing maternal and public health professionals recommend that , , and lactating people and those considering receive the COVID-19 vaccination. Vaccination is the best method to reduce maternal and complications of SARS-CoV-2 infection. This document was created with [employer] technology. Though I make every effort to review the dictation as it is transcribed, on occasion the spoken word can be misinterpreted by the technology leading to inappropriate words, phrases, or sentences. This note is addressed to the requesting provider as a consultation for clinical guidance. Specific medical abbreviations are occasionally used and those are generally approved by the [place]?Board of?Obstetrics and?Gynecology?as well as?Lana parrish abbreviations. The above plan of care was based solely on the diagnoses for which a consultation was requested. ?More frequent testing may be indicated based on her other medical/obstetrical conditions. The management of other or medical conditions is beyond the scope of requested consultation and will continue to be followed by the primary painter bottom or primary care provider. Note to patient: [...] provider today? no documented in this encounter [facility] 07-12-2023 Miscellaneous Notes Called patient to inform of change in schedule. No answer, left VM to please call scheduling office if needing to reschedule documented in this encounter [facility] 07-12-2023 Telephone encounter Note Called patient to inform of change in schedule. No answer, left VM to please call scheduling office if needing to reschedule [facility] 07-11-2023 History of Present illness Narrative [facility] Maternal- Medicine Consult Note Reason For Consult: left club foot HPI: Vianey Kramer is a 28 y.o. at 29w0d with [...] Resource Strain: Low Risk (03/27/2021) Received from [facility] Overall Financial Resource Strain (CARDIA) Difficulty of Paying Living Expenses: Not hard at all Food Insecurity: No Food Insecurity (03/27/2021) Received from [facility] Hunger Vital Sign Worried About Running Out of Food in the Last Year: Never true Ran Out of Food in the Last Year: Never true Transportation Needs: Not on file Physical Activity: Unknown (02/03/2022) Received from [facility] Exercise Vital Sign Days of Exercise per Week: 0 days Minutes of Exercise per Session: Not on file Stress: Not on file Social Connections: Not on file Interpersonal Safety: Not At Risk (02/03/2022) Received from [facility] Humiliation, Afraid, Rape, and Kick questionnaire [...] chorionic villus sampling) with chromosomal microarray analysis (OWNER/OPERATOR) should be offered when a club foot [...] other morbidities. Based on the available evidence, [facility] recommends treatment with antihypertensive therapy for mild [...] of limbs and MFM visit -please notify clinical laboratory aides teacher the patient will need to be referred [...] Leo Johnson MD, FACOG (she/hers) Maternal- Medicine [facility] [address] [place] [id number] This document was created with [employer] technology. Though I make every effort to review the dictation as it is transcribed, on occasion the spoken word can be misinterpreted by the technology leading to inappropriate words, phrases, or sentences. This note is addressed to the requesting provider as a consultation for clinical guidance. Specific medical abbreviations are occasionally used and those are generally approved by the [place]?Board of?Obstetrics and?Gynecology?as well as?Lana parrish abbreviations. The above plan of care was based solely on the diagnoses for which a consultation was requested. ?More frequent testing may be indicated based on her other medical/obstetrical conditions. The management of other or medical conditions is beyond the scope of requested consultation and will continue to be followed by the primary painter bottom or primary care provider. Note to patient: The Cures Act makes medical notes like these [...] yes Have you been seen here at [facility] in a previous ? no Recent ER visits or hospitalizations? no Bring blood sugar log or meter with you today? (Please bring them with you for every visit at [facility]) n/a Traveled outside the country in the past 6 month no Any concerns that you would like me to mention to the provider today? no documented in this encounter [employer] 04-14-2023 History of Present illness Narrative Reason for Appointment: Patient ID: Vianey Kramer is a 28 y.o. female who presents [...] nursing note reviewed. Exam conducted with a hims manager present. Vitals: Estimated body mass index is [...] MSAFP order do have done at [facility]. Documented by Lauren Crystal MA on behalf of: Alvaardo Perry DO documented in this encounter [facility] 04-12-2022 Evaluation note Encounter Date Diagnosis Assessment [...] left ear, unspecified type (ICD-10 - H60.502) [employer] Other 12-16-2022 History of Present illness Narrative* Analia Sin RN - 02/12/2022 8:30 AM EST Patient tolerated left hip injections without distress. Dry dressing to site. Patient to MRI for further imaging. [facility] [employer] Phone: [phone] 188-494810-03-2022 Evaluation note* Encounter Date Diagnosis Assessment Notes Treatment Notes Treatment Clinical Notes Nov, Tattoo reaction (ICD-10 - L92.3) Use medication as directed. complete all doses. Recommend unscented [facility] [employer] Other 09-14-2022 Evaluation note* Encounter Date Diagnosis Assessment Notes Treatment Notes Treatment Clinical Notes Oct, Contact with and (suspected) exposure to other viral communicable diseases (ICD-10 - Z20.823) Oct, COVID-19 (ICD-10 - U07.1) Discharge Instructions for COVID-19 (Suspected or Confirmed ) material was printed Drink plenty fluids, get plenty of rest. Take Tylenol or Motrin as needed for aches pains or fever. You must quarantine for 5 days after the onset of your symptoms of COVID. Follow-up with your family physician if no improvement in 2 to 3 days. [employer] Other 06-20-2022 Evaluation note* Encounter Date Diagnosis [...] days, Tendonitis home care material was printed [employer] Other Evaluation noteNo Assessments Information Available [facility] Diagnosis Tear of left acetabular labrum, initial encounter documented in this encounter [facility] [employer] Work Phone: evaluation note* Diagnosis Well woman exam with routine gynecological exam Routine gynecological examination Exposure to STD Encounter for anatomic survey Need for maternal serum alpha-protein (MSAFP) screening Second trimester state, incidental documented in this encounter [facility] HealthcareEvaluation noteNo assessment information available[facility] [employer] Work Phone: Evaluation note* Diagnosis 6 weeks follow-up Encounter for initial prescription of vaginal ring hormonal contraceptive documented in this encounter [facility] HealthcareEvaluation note* Diagnosis 29 weeks gestation of - Primary Club foot of fetus affecting antepartum care of mother, single or unspecified fetus Obesity affecting in third trimester, unspecified obesity type Marginal insertion of umbilical cord affecting management of mother Enlarged thyroid gland Goiter, unspecified Hypertension, unspecified type [facility] Diagnosis 33 weeks gestation of - Primary Club foot of fetus affecting antepartum care of mother, single or unspecified fetus Obesity affecting in third trimester, unspecified obesity type Marginal insertion of umbilical cord affecting management of mother Hypertension affecting in third trimester [facility] Diagnosis Well woman exam with routine gynecological exam Routine gynecological examination [facility]* Diagnosis Breast pain Mastodynia Mass of right breast, unspecified quadrant documented [facility] encounter [facility] general Narrative - Reported* Type Description Date Surgical History laparoscopy female Surgical History appendectomy Surgical History bronchoscopy [employer] Other History general Narrative - Reported* Type Description Date Medical History Esophageal reflux Surgical History laparoscopy female Surgical History appendectomy Surgical History bronchoscopy [employer] Other Hospital Discharge instructions* Attachments The following attachments cannot be sent through Care Everywhere. * Joint Injections (Burmese) [facility] [employer] Phone: InstructionsNot on filedocumented in this encounter [facility] Connectivity SystemInstructions* Attachments The following attachments cannot be sent through Care Everywhere. 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 [employer] Expl anation ACP-Advance Directive ACP-[employer] Documents on File Type Date Recorded 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 [employer] Expl anation ACP-Advance Directive [employer] Advance Directive Response Recorded Date/ Time Advance Directives No October 09, 2017 12:18pm Reason for Referral Status Reason Specialty Diagnoses / Procedures Referre d By Contact Referred To Contact Closed Radiology Diagnoses RUQ pain Procedures US GALLBLADDER RUQ Camron Alicea, LALA [address] [place] [address] Specialty Diagnoses / Procedures Referred By Contac t Referred To Contact Radiology Diagnoses Tear of left acetabular labrum, initial encounter Procedures IR [place] [address] [place] [address] Referral ID Status Reason Start Date Expiration Date Visits Re quested Visits Authorized [id number] Closed 02/12/2022 02/12/2023 1 1 Specialty Diagnoses / Procedures Referred By Anupama martinez Referred To Contact Radiology Diagnoses Tear of left acetabular labrum, initial encounter S73.192A (ICD-10-CM) - Tear of left acetabular labrum, initial encounter Procedures IR INJ ARTHROGRAM HIP LEFT W[place] INJECTION HIP ARTHROGRAM [id number] - [place]JE[place] [address] [place] [address] Referral ID Status Reason Start Date Expiration Date Visits Re quested Visits Authorized [id number] Closed 02/05/2022 02/05/2023 1 1 Chief Complaint [...] Procedures [place] [address] [facility] [place] [place] [address] Specialty Diagnoses / Procedures Referred By Anupama martinez Referred To Contact Radiology Diagnoses Tear of left acetabular labrum, initial encounter S73.192A (ICD-10-CM) - Tear of left acetabular labrum, initial encounter Procedures IR INJ ARTHROGRAM HIP LEFT [place] INJECTION HIP ARTHROGRAM [id number] - [place]JE[place] [address] [place] [address] Referral ID Status Reason Start Date Expiration Date Visits Re quested Visits Authorized [id number] Closed 02/05/2022 02/05/2023 1 1 Reason Comments Routine Visit Reason Comments Care Reason Comments left club foot Reason Comments clubbed left foot marginal cord insertion Reason Comments Gynecologic Exam Reason Comments Breast Pain Pt present today for right breast pain. INFORMATION SOURCE (unrecogn ized section and content) DATE CREATED AUTHOR 03/29/2021 [facility] DATE CREATED AUTHOR AUTHOR'S ORGANIZ ATION 08/17/2021 [facility] DATE CREATED AUTHOR AUTHOR'S ORGANIZ ATION 02/18/2022 [facility] DATE CREATED AUTHOR AUTHOR'S ORGANIZ ATION 08/11/2023 [facility] DATE CREATED AUTHOR AUTHOR'S ORGANIZ ATION 09/16/2023 [facility] DATE CREATED AUTHOR AUTHOR'S ORGANIZ ATION 04/13/2024 [facility] DATE CREATED AUTHOR AUTHOR'S ORGANIZ ATION 10/26/2024 [facility] DATE CREATED AUTHOR AUTHOR'S ORGANIZ ATION 11/30/2024 [facility] [employer] Care Teams (unrecognized sec tion and content) Site Lead Relationship Specialty [place] [address] [place] [address] PCP - General Family Medicine 03/11/15 Team Status: Active Member Role Status Dates Mirna Bennett MD Primary Care Provider Active Team Status: Inactive Member Role Status Dates Mirna Bennett MD Primary Care Provider Active Start: September 10, 2023 End: September 10, 2023 Alvarado Perry DO Attending Provider Active Start : September 10, 2023 End: September 10, 2023 Site Lead Relationship Specialty [place] [address] [place] [address] PCP - General Family Medicine 08/15/16 Site Lead Relationship Specialty [place] [address] [place] [address] PCP - General Family Medicine 08/15/16 Site Lead Relationship Specialty [place] [address] [facility] [place] [address] PCP - General Family Medicine 08/15/16 Goals [...] BE BASED ON THE PRIMARY CLINICAL RECORDS. [facility]. provides no warranty or guarantee of the accuracy or completeness of information in this document.
--- NOTE | 2024-12-04 14:47 | MM_ITS ---
Patient Name: DARRIUS VERGARA MR#: [id number] : 1995 Exam Date: 12/04/2024 Ordering Doctor: LAUREL WASSERMAN CNP RADIOLOGY REPORT PROCEDURE: MM TOMOSYNTHESIS DIAGNOSTIC BI, 12/04/2024, 14:13 US BREAST RT LIMITED, 12/04/2024, 14:59 COMPARISON: None. INDICATIONS: Mass Of Right Breast , Breast Pain Calculator Name NCI Breast Cancer Risk Assessment Tool 5 Year Breast Cancer Risk Not Applicable. Lifetime Breast Cancer Risk Not Applicable. Personal Breast Cancer No Personal Ovarian Cancer No Treatments None Family Cancers None LOCATION: [facility] BREAST COMPOSITION: There are scattered areas of fibroglandular density. FINDINGS: DIAGNOSTIC CATEGORY 1--NEGATIVE. RIGHT BREAST: No significant suspicious finding. No suspicious abnormality in the area of palpable lump involving the right breast. LEFT BREAST: No significant suspicious finding. Right breast ultrasound: Imaging in the area of palpable lump at the 2 o'clock position of the right breast demonstrates no suspicious mass or cyst. RECOMMENDATIONS: ROUTINE MAMMOGRAM AND CLINICAL EVALUATION IN 12 MONTHS. The patient's palpable lump should be handled on a clinical basis . Dictated by: Lexa Abdalla DO on 12/04/2024 at 15:16 Approved by: Lexa Abdalla DO on 12/04/2024 at 15:20
== END 2024-12-04 13:46 | disposition home or self-care (01) ==
LOC: MAMMO 13:45
PROVIDERS: Visit Provider Nurse Practitioner Family
DX: N64.4 Mastodynia (principal); N63.10 Unspecified lump in the right breast, unspecified quadrant
CPT/HCPCS: 76642; 77066; G0279

== ENCOUNTER 2025-01-13 15:38 | Emergency (ER) | payer BC, SELFPAY ==
[2025-01-13 15:44] VITALS: BP 147/92; PULSE 96; TEMP 36.8; O2SAT 100; BMI 39.1
--- NOTE | 2025-01-13 15:51 | US_ITS ---
The [address] [address] Patient Name: DARRIUS VERGARA MRN: [id number] date: 1995 Sex: F Assigned Patient Location: ER Current Patient Location: ER Accession/Order Number: [id number] Exam Date: 01/13/2025 16:29 Report Date: 01/13/2025 17:16 At the request of: AUBREY CYR Procedure: US OB transvaginal First trimester ultrasound HISTORY: Left lower quadrant pain. Intrauterine sac present. No yolk sac identified. No pole identified. No cardiac activity identified. Uterus retroverted. Right ovary measures 2.7 x 2.5 x 2.0 cm. This likely right corpus luteal cyst measuring up to 15 mm. Left ovary measures 2.4 x 2.3 x 1.6 cm. Small amount of fluid present within the cervical canal. Within the endometrium is a hypoechoic area measuring 1.4 x 0.6 x 0.6 cm. This may correspond with blood. Adequate flow of both ovaries. No adnexal mass. US/US OB transvaginal IMPRESSION: Intrauterine sac. May represent very early intrauterine gestation. Pseudogestational sac not excluded. No adnexal mass. No free fluid. Follow-up pelvic ultrasound with serial beta hCG levels recommended to confirm intrauterine gestation and exclude ectopic . Impression dictated by: John Stack M.D. 01/13/2025 5:16 PM Dictation Location: [facility] Electronically authenticated by: [id number] Y Date: 01/13/2025 17:16
--- OUTSIDE RECORDS SUMMARY | 2025-01-13 15:58 | XMS_ITS | CCD ---
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 Name Role Phone Mirna Bennett Primary Care Provider NO FAMILY, PHYSICIAN Primary Care Provider Unava ilJammie Bhatti Attending Provider [phone] Mirna Bennett Primary Care Provider LIZBET ANA Admitting Unavailable SAMANA MARCOS Attending Unavailable SAMANA MARCOS Consulting Unavailable SAMSA ANA Admitting Unavailable SAMSAANA Attending Unavailable ANA SOMERS Consulting Unavailable AGUBOSIM KELSEY Consulting Unavailable YARITZA SHANKAR Consulting Unavailable DR ALVARADO PERRY Admitting Unavailable DR ALVARADO PERRY Attending Unavailable DR ALVARADO PERRY Consulting Unavailable Julieth Winkler Unavailable Jammie Terry Unavailable Mirna Bennett MD Primary Care Provider [phone] ELICIA PIEDRA Referring Unavailable MIRNA BENNETT Primary Care Unavailable ELICIA PIEDRA Referring Unavailable MIRNA BENNETT Primary Care Unavailable Unavailable Primary Care Provider UnavailMIRNA Martinez Referring Unavailable MIRNA BENNETT Primary Care Unavailable LEO JOHNSON Attending Unavailable MIRNA BENNETT Referring Unavailable MIRNA BENNETT Primary Care Unavailable PERRY YBARRA Attending Unavailable MD Mirna Bennett Primary Care Provider DO Alvarado Perry Attending Provider Mirna Bennett Primary Care Unavailable Alvarado Perry Attending Unavailable Alvarado Perry Admitting Unavailable Mirna Bennett MD Primary Care Provider [phone] MIRNA BENNETT Primary Care Unavailable DONNA TARANGO [...] Unavailable LAUREL JACOBSON Attending Unavailable Allergies Allergy ClassificationReported Allergen(s)Allergy TypeDate of OnsetReaction(s) Facility (2 sources)Amoxicillin-Pot ClavulanatePropensity to adverse reactions to drug 71-44-3890Copdg (See Comments)[employer] Work Phone: (3 sources)Bismuth-Containing CompoundsPropensity to adverse reactions to drug 26-61-7755VdpekQarxm Health Work Phone: (1 source)bismuth subsalicylateDrug Coqhmyg29-40-5259SxzW[facility] Repository (5 sources)bismuth subsalicylateDrug Hjaqkws85-10-8015noqob, Other (See Comments)[facility] [employer] (20 sources)bismuth subsalicylateDrug Yfoyahm10-52-4549DhhieWEUY Healthcare Work Phone: (20 sources)Bismuth-Containing CompoundsDrug Gotescsaqys35-71-6895RygwsOXMA Healthcare (7 sources)bismuth subcarbonate; Translations: [BISMUTH SUBCARBONATE]Drug Rhoqzzx03-35-1922UdnsjEbbAwqhtx Repository (1 source)bismuth subsalicylateDrug Mkmyifb32-03-5017GtvqchiqcMount Carmel Health System Repository Medications Current Medications MedicationDrug Class(es)DatesSig (Normalized)Sig (Original)[id number] 200 actuat albuterol 0.09 mg/actuat metered dose inhaler (12 sources)beta2-Adrenergic AgonistStart: 06-71-9822eoea 1-2 puff(s) by mouth every four to six hours as needed for coughalbuterol HFA 90 mcg/act inhaler INHALE 1-2 PUFFS BY MOUTH EVERY 4-6 HOURS NEEDED FOR COUGH, SHORTNESS OF BREATH, OR WHEEZING. 12/18/2023 ActiveStart: 58-87-7040oxjl 2 puff(s) by inhalation every four hours as needed for wheezingalbuterol (PROVENTIL HFA;VENTOLIN HFA) 90 mcg/actuation inhaler Indications: Upper respiratory tract infection, unspecified type , GRANDA (dyspnea on exertion) Inhale 2 puffs every 4 (four) hours as needed for wheezing. 18 g 03/04/2021 Activeamoxicillin 500 mg oral capsule (1 source)Penicillin-class AntibacterialStart: 80-55-9946jsbq 1 capsule by mouth every eight hoursAmoxicillin 500 MG 1 capsule Orally three times a day for 10 day(s) Mar, Activecitalopram 10 mg oral tablet (4 sources)Serotonin Reuptake InhibitorStart: 90-36-4474vwhi 1 tablet by mouth once dailycitalopram (CELEXA) 10 MG tablet Take 1 tablet by mouth daily 30 tablet 3 12/17/2019 Activecyclobenzaprine hydrochloride 10 mg oral tablet (4 sources)Muscle RelaxantStart: 73-69-7801owrv 1 tablet by mouth twice daily as needed for muscle spasmscyclobenzaprine (FLEXERIL) 10 mg tablet Take 1 tablet (10 mg total) by mouth 2 (two) times a day asneeded for muscle spasms. 10 tablet 12/14/2021 Cvhcns71 day ethinyl estradiol 0.992292 mg/hr / etonogestrel 0.005 mg/hr vaginal system (20 sources)Progestin, EstrogenStart: 30-51-2146vmjzgiaqeypz-ethinyl estradiol (EluRyng) 0.12-0.015 MG/24HR vaginal ring Indications: 6 weeks follow-up ([facility]) , Encounter for initial prescription of vaginal ring hormonal contraceptive INSERT 1 RING INTO THE VAGINA AND LEAVE IN FOR 3 WEEKS, THEN REMOVE FOR 1 WEEK 3 each 3 09/21/2024tiveStart: 29-85-5934empgpmqkgalj- ethinyl estradiol (EluRyng) 0.12-0.015 MG/24HR vaginal ring Indications: 6 weeks follow-up , Encounter for initial prescription of vaginal ring hormonal contraceptive INSERT 1RING VAGINALLY AND LEAVE IN PLACE X3 WEEKS, THEN REMOVE X1 WEEK. THEN REPEAT 3 each 11 03/28/2024 ActiveStart: 10-20-2023 End: 06-19-0370xtijrupisvmc-ethinyl estradiol (Nuvaring) 0.12-0.015 MG/24HR vaginal ring Indications: 6 weeks follow-up , Encounter for initial prescription of vaginal ring hormonal contraceptive Insert 1 Ring into the vagina every 28 (twenty-eight) days for 28 days Insert vaginal ring for 3 weeks, then remove for 1 week. 1 each 11 10/20/2023 11/17/2023 ActiveStart: 06-13-2018 NUVARING 0.12-0.015 MG/24HR vaginal ring End: 08-18-9021xbuacqvxekaB-ethinyl estradioL (NUVARING) 0.12-0.015 mg/24 hr vaginal ring Insert 1 each into the vagina every 28 days. Insert vaginally and leave in place for 3 consecutive weeks, then remove for 1 week. 07/11/2023 Discontinued ()NuvaRing Activefluocinonide 0.5 mg/ml topical cream (2 sources)CorticosteroidStart: 83-34-1311qaitoepbcmbs (LIDEX) 0.05 % cream Apply topically 2 times daily. 60 g 1 07/24/2019 ActiveFLUoxetine 10 mg oral capsule (4 sources)Serotonin Reuptake Inhibitortake 1 capsule by mouth in the morning FLUoxetine (PROzac) 10 mg capsule Take 1 capsule (10 mg total) by mouth in the morning. Activehydrocortisone 10 mg/ml / neomycin 3.5 mg/ml / polymyxin b 33861 unt/ml otic suspension (1 source)Aminoglycoside Antibacterial, Polymyxin-class Antibacterial, CorticosteroidStart: 55-13-3284Opesetzc-Polymyxin-HC 3.5-07528-6 3 drops left ear Three times a day for 7 days Mar, ActivemethylPREDNISolone 4 mg oral tablet (1 source)CorticosteroidStart: 93-29-2134rbutcpTRRBGUVbgafu 4 MG as directed Orally Once a day for 6 days Nov, Activeomeprazole 20 mg delayed release oral capsule (4 sources)Proton Pump InhibitorStart: 52-37-3110oxwd 1 capsule by mouth twice dailyomeprazole (PRILOSEC) 20 MG delayed release capsule Take 1 capsule by mouth 2 times daily 30 capsule 3 12/17/2019 ActiveStart: 86-02-6613vdvc 1 capsule by mouth once dailyomeprazole (PRILOSEC) 40 MG delayed release capsule TAKE 1 CAPSULE BY MOUTH DAILY 30 capsule 1 11/01/2017 Activeondansetron 4 mg disintegrating oral tablet (8 sources)Serotonin-3 Receptor AntagonistStart: 11-21-9285xghm 1 tablet by mouth every eight hours as neededondansetron ODT (Zofran-ODT) 4 MG disintegrating tablet Take 4 mg by mouth every 8 (eight) hours ifneeded 04/10/2024 ActivePhentermine (1 source)Sympathomimetic Amine AnorecticAdipex-P ActivePNV no.95/ferrous fum/folic ac ( ORAL) (4 sources)PNV no.95/ferrous fum/folic ac ( ORAL) Take by mouth. Active predniSONE 20 mg oral tablet (4 sources)Start: 89-71-0658oqcl 2 tablets by mouth in the morningpredniSONE (DELTASONE) 20 mg tablet Take 2 tablets (40 mg total) by mouth in the morning. 10 raffwr3212/14/2021 Activeprochlorperazine 10 mg oral tablet (8 sources)PhenothiazineStart: 86-92-1946zbbz 1 tablet by mouth twice daily as neededprochlorperazine (Compazine) 10 MG tablet Take 10 mg by mouth 2 (two) times a day as needed 04/10/2024 Active0.25 mg, 0.5 mg dose 1.5 ml semaglutide 1.34 mg/ml pen injector (1 source)Ozempic (0.25 or 0.5 MG/DOSE) 2 MG/1.5ML Subcutaneous for 56 Days Activetriamcinolone acetonide 1 mg/ml topical cream (2 sources)CorticosteroidStart: 26-36-0369ofqczzsxqwqie (KENALOG) 0.1 % cream Indications: Bug bite, initial encounter Apply topically 2 times daily. 45 g 0 06/29/2018 ActiveWrist Splint/Right XL - (1 source)Wrist Splint/Right XL - as directed Active Completed/Discontinued Medications MedicationDrug Class(es)DatesSig (Normalized)Sig (Original)ibuprofen 800 mg oral tablet (5 sources)Nonsteroidal Anti-inflammatory DrugStart: 12-14-2021 End: 27-52-2489nkto 1 tablet by mouth every eight hours as needed for pain ibuprofen (MOTRIN) 800 mg tablet Take 1 tablet (800 mg total) by mouth every 8 (eight) hours as needed for pain. 21 tablet 12/14/2021 07/11/2023 Discontinued ()Start: 52-78-4502ydtq 1 tablet by mouth three times daily as needed ibuprofen (ADVIL;MOTRIN) 800 MG tablet Take 800 mg by mouth 3 times daily as needed 0 07/03/2018 Activeioversol (OPTIRAY) 74 % injection 100 mL (1 source)Start: 02-12-2022 End: 17-58-2455komyaztv (OPTIRAY) 74 % injection 100 mLlabetalol hydrochloride 100 mg oral tablet (2 sources)beta-Adrenergic BlockerStart: 08-30-2023 End: 98-58-0276clsj 1 tablet by mouth in the morninglabetalol (Normodyne) 100 MG tablet Indications: Hypertension during in third trimester, u nspecified hypertension in type Take 1 tablet (100 mg) by mouth in the morning and 1 tablet (100 mg) before bedtime. 60 tablet 11 08/30/2023 10/20/2023 Discontinued (Other) Vit-Fe Fumarate-FA ( Plus/Iron) 27-1 MG tablet (4 sources)Start: 02-17-2023 End: 04-33-3494kkov 1 tablet by mouth in the morningPrenatal Vit-Fe Fumarate-FA ( Plus/Iron) 27-1 MG tablet Indications: Missed menses Take 1 tablet by mouth in the morning. 90 tablet 3 02/17/2023 09/27/2023 DiscontinuedStart: 02-17-2023 End: 77-36-4390vpak 1 tablet by mouth in the morningPrenatal Vit-Fe Fumarate-FA ( Plus/Iron) 27-1 MG tablet Indications: Missed menses Take 1 tablet by mouth in the morning. 90 tablet 3 02/17/2023 02/17/2024 Activepromethazine hydrochloride 25 mg oral tablet (4 sources)PhenothiazineStart: 01-25-2022 End: 55-86-3169eajt 1 tablet by mouth four times daily as needed for nausea promethazine (PHENERGAN) 25 MG tablet Take 1 tablet by mouth 4 times daily as needed for Nausea 40 tablet 1 01/25/2022 02/14/2022 ExpiredPhenergan Active Problems Active Problems Problem ClassificationProblemDateDocumented DateEpisodic/ChronicAbdominal pain (5 sources)Right upper quadrant pain; Translations: [Abdominal pain]Onset: 08-39-0011RysreeqeHopplqbt reactions (3 sources)Atopic dermatitis; Translations: [Intrinsic (allergic) eczema]Onset: 600336-88-9996MtinbblKsfutgd disorders (3 sources)Mixed anxiety and depressive disorder; Translations: [Other specified anxiety disorders]Onset: 188594-53-3416WjrppifG Codes: Fall (2 sources)FallOnset: 19-83-7448Wnaimwsuib disorders (3 sources)Gastroesophageal reflux disease; Translations: [Gastro-esophageal reflux disease without esophagitis]Onset: 131151-27-2912ThssubwRwlezdwfo hypertension (4 sources)Hypertensive disorder; Translations: [Essential (primary) hypertension]Onset: 651942-45-0618UusdiicGlyimaejt and duodenitis (1 source)Acute gastritis without bleeding; Translations: [Acute gastritis without bleeding]Onset: 69-49-4141DjbjrpzaVsxjhidrloou complicating ; childbirth and the puerperium (1 source)Hypertension complicating ; Translations: [Unspecified maternal hypertension, third trimester]34-40-5099HbsehutPrncjrgdppodm and screening for infectious disease (7 sources)Encounter for screening for human papillomavirus (HPV); Translations: [Contact with and (suspected)exposure to other viral communicable diseases] Onset: 08-13-2021 Resolved: 83-72-7334AcjninspVbize disorders and dislocations; trauma-related (20 sources)Chondromalacia of patella; Translations: [Chondromalacia patellae, unspecified knee]Onset: 272055-41-6123SlwhstsPxvstgaknetu breast conditions (4 sources)Pain of breast; Translations: [Mastodynia]77-48-8093Nkhecdev Nonspecific chest pain (1 source)Chest pain, unspecified; Translations: [Chest pain, unspecified]Onset: 61-59-7793LnbqxaodXyulh complications of ; puerperium affecting management of mother (1 source)Maternal care for (suspected) abnormality and damage, unspecified, not applicable or unspecified; Translations: [Maternal care for (suspected) abnormality and damage, unspecified, not applicable or unspecified]Onset: 04-22-4380HlhfflyjGilmx complications of (1 source)Obesity complicating , unspecified trimester; Translations: [Obesity complicating , unspecified trimester]Onset: 06-02-1884Sltmxtf Other complications of (5 sources)Maternal obesity complicating , childbirth and the puerperium, antepartum; Translations: [Obesity complicating , third trimester]Onset: 521647-63-3490LgoujanCslps connective tissue disease (1 source)Trochanteric bursitis of left hip; Translations: [Trochanteric bursitis, left hip]Onset: 926989-75-6648VwdbivnrQaqhf ear and sense organ disorders (1 source)Unspecified acute noninfective otitis externa, left earEpisodicOther gastrointestinal disorders (1 source)Change in bowel habit; Translations: [Change in bowel habit]Onset: 58-07-0708AfmuofyhWgpeh injuries and conditions due to external causes (4 sources)Food in respiratory tract, part unspecified causing asphyxiation, initial encounter; Translations: [FOOD RESP TRACT PRT UNS ASPHYX INIT]Onset: 75-90-2767KdcogpraWfawk injuries and conditions due to external causes (1 source)Unspecified injury of right elbow, initial encounter; Translations: [Unspecified injury of right elbow, initial encounter]Onset: 64-13-8162Kpawhbwn Other lower respiratory disease (1 source)Dyspnea, unspecified; Translations: [DYSPNEA UNSPECIFIED]Onset: 72-50-6198IzlghmpzCfkfm non-traumatic joint disorders (1 source)Pain in elbowOnset: 16-62-6243UbjiayvwYsquk nutritional; endocrine; and metabolic disorders (1 source)Obesity, unspecified; Translations: [OBESITY UNSPECIFIED]Onset: 07-01-4946VdhubqiQrcrf nutritional; endocrine; and metabolic disorders (1 source)Body mass index (BMI) 33.0-33.9, adult; Translations: [BODY MASS INDEX BMI 33.0-33.9 ADULT]Onset: 00-69-9975LaomhofSlnun screening for suspected conditions (not mental disorders or infectious disease) (9 sources)Encounter for screening for malignant neoplasm of cervix; Translations: [Patient encounter status]Onset: 61-11-0823NvdmfkmyYymic skin disorders (1 source)Foreign body granuloma of the skin and subcutaneous tissueEpisodic Otitis media and related conditions (1 source)Otitis media, unspecified, left earEpisodicResidual codes; unclassified (1 source)29 weeks gestation of ; Translations: [29 weeks gestation of ]Onset: 67-61-4930WqlfynhrUixbprf and strains (2 sources)Acetabular labrum tear; Translations: [Other sprain of left hip, initial encounter]Onset: 91-16-3936DhmjwnkcHtdadcnqz-related disorders (20 sources)Nicotine dependence, cigarettes, uncomplicated; Translations: [Smoker]Onset: 506731-27-4550IldlrraMosykal disorders (4 sources)Goiter; Translations: [Nontoxic goiter, unspecified]Onset: 07-11-2023 68-79-3214PxdiyojTsxgtegaxrbv (1 source)COUGH, UNSPECIFIED; Translations: [COUGH, UNSPECIFIED]Onset: 79-74-8591Gpodhobitokz (1 source)PERSONAL HISTORY OF COVID-19; Translations: [PERSONAL HISTORY OF COVID-19]Onset: 47-07-4150Ypuzvjykqakr (1 source)CONTACT W/AND (SUSP) EXPOS COVID-19; Translations: [CONTACT W/AND (SUSP) EXPOS COVID-19]Onset: 22-45-3160Yoncfvlimgsx (1 source)Maternal care for other (suspected) abnormality and damage, lower extremities anomalies, not applicable or unspecified; Translations: [Maternal care for other (suspected) abnormality and damage, lower extremities anomalies, not applicable or unspecified]Onset: 08-10-2023 Unclassified (1 source)left club footOnset: 04-51-9338Zrzxyrgtmqiy (1 source)Rt elbow painOnset: 01-28-2024 Past or Other Problems Problem ClassificationProblemDateDocumented DateEpisodic/ChronicContraceptive and procreative management (2 sources)Patient encounter status; Translations: [Encounter for initial prescription of vaginal ring hormonal contraceptive]85-27-4036MekpxjalZibcwwyckh disorders (3 sources)Chalasia of lower esophageal sphincter; 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]Onset: 463449-22-5620NreuovrpPsjvok and vomiting (3 sources)Nausea and vomiting; Translations: [Nausea with vomiting, unspecified]Onset: 279288-37-1342FpgcfbloQjqpm and unspecified benign neoplasm (3 sources)Benign neoplastic disease; Translations: [Melanocytic nevi, unspecified]Onset: 198099-37-6853TprmnndmXtaxk complications of ; puerperium affecting management of mother (5 sources)Disorder of structure; Translations: [Club foot of fetus affecting antepartum care of mother,single or unspecified fetus]Onset: 992884-80-3459LkolayfkSzrin complications of (5 sources)Abnormal placenta affecting management of mother; Translations: [Other malformation of placenta, unspecified trimester]Onset: 07-11-2023 36-07-3532HcsdsbcwVddrs connective tissue disease (1 source)Pain in left finger(s)Onset: 08-17-2021 Resolved: 46-26-4891TnjxcahqVnkdi connective tissue disease (1 source)Other enthesopathies, not elsewhere classifiedOnset: 08-17-2021 Resolved: 67-01-5285ArnzcthjCdntf infections; including parasitic (3 sources)Infestation by Sarcoptes scabiei rosmery hominis; Translations: [Scabies] Onset: 05-26-2015 Resolved: 531542-43-6397WzpcybnqBtezg non-traumatic joint disorders (2 sources)Knee pain; Translations: [Knee pain]Onset: EpisodicOther non-traumatic joint disorders (1 source)Pain in unspecified knee; Translations: [Pain in joint, lower leg] Onset: 857867-70-9375WwfqryfpWxgnu non-traumatic joint disorders (1 source)Pain in right elbow; Translations: [Pain in right elbow]Onset: 92-18-2766UbornoxwYxbpn non-traumatic joint disorders (1 source)Pain in right wrist; Translations: [Pain in right wrist]Onset: 14-86-1121GdcgsjpqHxhqo and delivery including normal (4 sources)Second trimester ; Translations: [Encounter for supervision of normal , unspecified, second trimester]88-79-7785PxaivynpPhnnwjxx codes; unclassified (1 source)Gestation period, 29 weeks; Translations: [29 weeks gestation of ]68-39-0519AqddrabnTgotkojx codes; unclassified (1 source)Gestation period, 33 weeks; Translations: [33 weeks gestation of ]11-55-0476YaueklxmPuihxastgbzz (2 sources)Patient encounter status; Translations: [Visit for gynecologic examination]Onset: 05-26-2015 Resolved: Viral infection (3 sources)Plane wart; Translations: [Other viral warts]Onset: 05-26-2015 94-09-3439UoesfhknEslyz infection (1 source)COVID-19Onset: 11-11-2021 Resolved: 06-73-6566FJCASZX: Highlighted row has been ruled out!Unclassified (1 source)No known active fogzbksb12-77-7292 Results Test NameValueInterpretationReference RangeFacilityMM TOMOSYNTHESIS DIAGNOSTIC BIon 12-99[place] [address] Mammography Report Signed Patient: DARRIUS KRAMER MR#: [id number] : 1995 Acct:[id number] Age/Sex: 29 / F ADM Date: 12/04/24 Loc: MAMMO Attending Dr: Laurel Jacobson Ordering Physician: Laurel Jacobson Results: Date of Service: 12/04/24 Follow Up: Procedure(s): MM tomosynthesis diagnostic BI Accession Number(s): [id number] cc: Laurel Jacobson; Physician,Non-Staff M.D. Patient Name: DARRIUS KRAMER MR#: [id number] : 1995 Exam Date: 12/04/2024 Ordering Doctor: LAUREL JACOBSON [facility] RADIOLOGY REPORT PROCEDURE: MM TOMOSYNTHESIS DIAGNOSTIC BI, 12/04/2024, 14:13 US BREAST RT LIMITED, 12/04/2024, 14:59 COMPARISON: None. INDICATIONS: Mass Of Right Breast , Breast Pain Calculator Name NCI Breast Cancer Risk Assessment Tool 5 Year Breast Cancer Risk Not Applicable. Lifetime Breast Cancer Risk Not Applicable. Personal Breast Cancer No Personal Ovarian Cancer No Treatments None Family Cancers None LOCATION: [facility] BREAST COMPOSITION: There are scattered areas of fibroglandular density. FINDINGS: DIAGNOSTIC CATEGORY 1--NEGATIVE. RIGHT BREAST: No significant suspicious finding. No suspicious abnormality in the area of palpable lump involving the right breast. LEFT BREAST: No significant suspicious finding. Right breast ultrasound: Imaging in the area of palpable lump at the 2 o'clock position of the right breast demonstrates no suspicious mass or cyst. RECOMMENDATIONS: ROUTINE MAMMOGRAM AND CLINICAL EVALUATION IN 12 MONTHS. The patient's palpable lump should be handled on a clinical basis . Dictated by: Lexa Abdalla DO on 12/04/2024 at 15:16 Approved by: Lexa Abdalla DO on 12/04/2024 at 15:20 Dictated By: Lexa Abdalla M.D. Signed By: 12/04/24 1521 DD/ 1520 TD/TT: Program Analyst:TBHRadiology, Radiologist, MD - 12/04/2024 [place] [address] Mammography Report Signed Patient: DARRIUS KRAMER MR#: [id number] : 1995 Acct:[id number] Age/Sex: 29 / F ADM Date: 12/04/24 Loc: MAMMO Attending Dr: Laurel Jacobson Ordering Physician: Laurel Jacobson Results: Date of Service: 12/04/24 Follow Up: Procedure(s): MM tomosynthesis diagnostic BI Accession Number(s): [id number] cc: Laurel Jacobson; Physician,Non-Staff M.DGomez Patient Name: DARRIUS KRAMER MR#: [id number] : 1995 Exam Date: 12/04/2024 Ordering Doctor: LAUREL JACOBSON [facility] REPORT PROCEDURE: MM TOMOSYNTHESIS DIAGNOSTIC BI, 12/04/2024, 14:13 US BREAST RT LIMITED, 12/04/2024, 14:59 COMPARISON: None. INDICATIONS: Mass Of Right Breast , Breast Pain Calculator Name NCI Breast Cancer Risk Assessment Tool 5 Year Breast Cancer Risk Not Applicable. Lifetime Breast Cancer Risk Not Applicable. Personal Breast Cancer No Personal Ovarian Cancer No Treatments None Family Cancers None LOCATION: [facility] BREAST COMPOSITION: There are scattered areas of fibroglandular density. FINDINGS: DIAGNOSTIC CATEGORY 1--NEGATIVE. RIGHT BREAST: No significant suspicious finding. No suspicious abnormality in the area of palpable lump involving the right breast. LEFT BREAST: No significant suspicious finding. Right breast ultrasound: Imaging in the area of palpable lump at the 2 o'clock position of the right breast demonstrates no suspicious mass or cyst. RECOMMENDATIONS: ROUTINE MAMMOGRAM AND CLINICAL EVALUATION IN 12 MONTHS. The patient's palpable lump should be handled on a clinical basis . Dictated by: Lexa Abdalla DO on 12/04/2024 at 15:16 Approved by: Lexa Abdalla DO on 12/04/2024 at 15:20 Dictated By: Lexa Abdalla M.D. Signed By: 12/04/24 1521 DD/ 1520 TD/TT: Program Analyst: UMBERTO Clarke InformationOrdered By: Radiologist Radiology on 30-11-6412WYXM [employer] Work Phone: No Panel Informationon 18-03-5764Zjpdlpgjp Study observation (narrative)UMBERTO Leal Breast - right limitedon 18-04-5331[place] [address] Ultrasound Report Signed Patient: DARRIUS KRAMER MR#: [id number] : 1995 Acct:[id number] Age/Sex: 29 / F ADM Date: 12/04/24 Loc: MAMMO Attending Dr: Laurel Jacobson Ordering Physician: Laurel Jacobson Date of Service: 12/04/24 Procedure(s): US breast RT limited Accession Number(s): [id number] cc: Laurel Jacobson; Physician,Non-Staff M.DGomez Patient Name: DARRIUS KRAMER MR#: [id number] : 1995 Exam Date: 12/04/2024 Ordering Doctor: LAUREL JACOBSON [facility] RADIOLOGY REPORT PROCEDURE: MM TOMOSYNTHESIS DIAGNOSTIC BI, 12/04/2024, 14:13 US BREAST RT LIMITED, 12/04/2024, 14:59 COMPARISON: None. INDICATIONS: Mass Of Right Breast , Breast Pain Calculator Name NCI Breast Cancer Risk Assessment Tool 5 Year Breast Cancer Risk Not Applicable. Lifetime Breast Cancer Risk Not Applicable. Personal Breast Cancer No Personal Ovarian Cancer No Treatments None Family Cancers None LOCATION: [facility] BREAST COMPOSITION: There are scattered areas of fibroglandular density. FINDINGS: DIAGNOSTIC CATEGORY 1--NEGATIVE. RIGHT BREAST: No significant suspicious finding. No suspicious abnormality in the area of palpable lump involving the right breast. LEFT BREAST: No significant suspicious finding. Right breast ultrasound: Imaging in the area of palpable lump at the 2 o'clock position of the right breast demonstrates no suspicious mass or cyst. RECOMMENDATIONS: ROUTINE MAMMOGRAM AND CLINICAL EVALUATION IN 12 MONTHS. The patient's palpable lump should be handled on a clinical basis . Dictated by: Lexa Abdalla DO on 12/04/2024 at 15:16 Approved by: Lexa Abdalla DO on 12/04/2024 at 15:20 Dictated By: Lexa Abdalla M.D. Signed By: 12/04/24 1521 DD/ 1520 TD/TT: Program Analyst:TBHRadiology, Radiologist, MD - 12/04/2024 [place] [address] Ultrasound Report Signed Patient: DARRIUS KRAMER MR#: [id number] : 1995 Acct:[id number] Age/Sex: 29 / F ADM Date: 12/04/24 Loc: MAMMO Attending Dr: Laurel Jacobson Ordering Physician: Laurel Jacobson Date of Service: 12/04/24 Procedure(s): US breast RT limited Accession Number(s): [id number] cc: Laurel Jacobson; Physician,Non-Staff M.Pranay Patient Name: DARRIUS KRAMER MR#: [id number] : 1995 Exam Date: 12/04/2024 Ordering Doctor: LAUREL JACOBSON CNP RADIOLOGY REPORT PROCEDURE: MM TOMOSYNTHESIS DIAGNOSTIC BI, 12/04/2024, 14:13 US BREAST RT LIMITED, 12/04/2024, 14:59 COMPARISON: None. INDICATIONS: Mass Of Right Breast , Breast Pain Calculator Name NCI Breast Cancer Risk Assessment Tool 5 Year Breast Cancer Risk Not Applicable. Lifetime Breast Cancer Risk Not Applicable. Personal Breast Cancer No Personal Ovarian Cancer No Treatments None Family Cancers None LOCATION: The [facility] BREAST COMPOSITION: There are scattered areas of fibroglandular density. FINDINGS: DIAGNOSTIC CATEGORY 1--NEGATIVE. RIGHT BREAST: No significant suspicious finding. No suspicious abnormality in the area of palpable lump involving the right breast. LEFT BREAST: No significant suspicious finding. Right breast ultrasound: Imaging in the area of palpable lump at the 2 o'clock position of the right breast demonstrates no suspicious mass or cyst. RECOMMENDATIONS: ROUTINE MAMMOGRAM AND CLINICAL EVALUATION IN 12 MONTHS. The patient's palpable lump should be handled on a clinical basis . Dictated by: Lexa Abdalla DO on 12/04/2024 at 15:16 Approved by: Lexa Abdalla DO on 12/04/2024 at 15:20 Dictated By: Lexa Abdalla M.D. Signed By: 12/04/24 1521 DD/ 1520 TD/TT: Program Analyst: UMBERTO TrevinoFECAL LACTOFERRINon [id number] LACTOFERRINNegativeNormal NegativeProMemorial Hermann Southwest HospitalComment on above:Performed By: #### LACTOF ####[facility] ([facility])[address] [facility] [address], [place] [address] VIRPANCREATIC ELASTASE, David 23-05-7640XTTUTWJRPQ ELASTASE, F>500Normal>200 (Normal)[facility] County HospitalComment on above:Result Comment: Test Performed by: [facility] [address] [place] [address] Fur Remodeler: Jair Jackson Ph.D.; CLIA# [id number] By: #### PNCEF ####[employer] ([employer])[address] [place] [address] VIRBASIC METABOLIC PANELon 46-62-9460Ixqac gap [Moles/Vol]9 mmol/LNormal5-15ProMemorial Hermann Southwest HospitalComment on above:Performed By: #### BMP #### [facility] ([facility]) [address] [place] [address] VIRCalcium [Mass/Vol]9.0 mg/dLNormal8.5-10.5PCleveland Clinic Fairview HospitalComment on above:Performed By: #### BMP #### [facility] ([facility]) [address] [place] [address] VIRChloride [Moles/Vol]105 mmol/WZrtzlm37-241CovQgubatMemorial Hermann Southwest HospitalComment on above:Performed By: #### BMP #### [facility] ([facility]) [address] [place] [address] VIRCO2 [Moles/Vol]26 mmol/FTrbyih37-05EuqLmjbkdCleveland Clinic Fairview HospitalComment on above:Performed By: #### BMP #### [facility] ([facility]) [address] [place] [address] VIRCreatinine [Mass/Vol]0.66 mg/dLNormal0.40-1.00ProMemorial Hermann Southwest HospitalComment on above:Result Comment: METHOD TRACEABLE TO IDMS STANDARDPerformed By: #### BMP #### [facility] ([facility]) [address] [place] [address] VIREGFR (CKD-EPI) NON-RACE DEPENDENT>^90Normal>=60ProMemorial Hermann Southwest HospitalComment on above:Result Comment: Reported eGFR is based on the CKD-EPI 2020 equation that does not use a race coefficient. EGFR not calculated due to patient's gender not being defined.Performed By: #### BMP #### [facility] ([facility]) [address] [place] [address] VIRGlucose [Mass/Vol]106 mg/rDOaqw19-99ZraStprolMemorial Hermann Southwest HospitalComment on above:Performed By: #### BMP #### [facility] ([facility]) [address] [place] [address] VIRPotassium [Moles/Vol]3.6 mmol/LNormal3.5-5.0Paul[facility] County HospitalComment on above:Performed By: #### BMP #### [facility] ([facility]) [address] [place] [address] VIRSodium [Moles/Vol]140 mmol/QMxndsr514-913XjzZwibpx [facility]ont HospitalComment on above:Performed By: #### BMP #### [facility] ([facility]) [address] [place] [address] VIRUrea nitrogen [Mass/Vol]10 mg/dLNormal5-23Paul[facility] County HospitalComment on above:Performed By: #### BMP #### [facility] ([facility]) [address] [place] [address] VIRCBC WITH AUTO DIFFERENTIALon 06-72-4517VQJGNIJPO ABSOLUTE COUNT (10*3/UL) BY AUTOMATED COUNT0.0 10*3/uLNormal0.0-0.2PCleveland Clinic Fairview HospitalComforest view hospital on above:Performed By: #### CBCA ####[facility] ([facility])[address], [place] [address] VIRBASOPHILS RELATIVE PERCENT BY AUTOMATED COUNT0.4 %NormalProMemorial Hermann Southwest HospitalComment on above: Performed By: #### CBCA ####[facility] ([facility])[address], [place] [address] VIRCELLAVISION DIFFERENTIAL TYPEAUTOMATED DIFFERENTIALNormalProMemorial Hermann Southwest HospitalComment on above:Performed By: #### CBCA ####[facility] ([facility])[address], [place] [address] VIREosinophils (Bld) [#/Vol]0.2 10*3/uLNormal0.0-0.4 [facility] County HospitalComment on above:Performed By: #### CBCA ####[facility] ([facility])[address], [place] [address] VIR EOSINOPHILS RELATIVE PERCENT BY AUTOMATED COUNT2.3 %NormalPaulding County HospitalComment on above:Performed By: #### CBCA ####[facility] ([facility])[address], [place] [address] VIRErythrocyte distribution width (RBC) [Ratio]14.0 %Xcxgco29.5-15[facility] Comment on above:Performed By: #### CBCA ####[facility] ([facility])[address], [place] [address] VIRHematocrit (Bld) [Volume fraction]40.5 %Ybrvei06-45LsnRmnwpfMemorial Hermann Southwest HospitalComment on above:Performed By: #### CBCA ####[facility] ([facility])[address], [place] [address] VIRHemoglobin (Bld) [Mass/Vol]13.3 g/bSXayiqt17.7-15.5 [facility] County HospitalComment on above:Performed By: #### CBCA ####[facility] ([facility])[address], [place] [address] VIR LYMPHOCYTES ABSOLUTE COUNT (10*3/UL) BY AUTOMATED COUNT1.9 10*3/uLNormal1.0-3.5 [facility] HospitalComment on above:Performed By: #### CBCA ####[facility] ([facility])[address], [place] [address] VIR LYMPHOCYTES RELATIVE PERCENT BY AUTOMATED COUNT18.2 %NormalProMemorial Hermann Southwest HospitalComment on above:Performed By: #### CBCA ####[facility] ([facility])[address], [place] [address] VIRMCH (RBC) [Entitic mass]29.1 yaCihgkj45-40NetUkwpvgPaulding County HospitalComment on above:Performed By: #### CBCA ####[facility] ([facility])[address], [place] [address] VIRMCHC (RBC) [Mass/Vol]32.9 g/tCLyqctv95-53IldCheqloPaulding County HospitalComment on above:Performed By: #### CBCA ####[facility] ([facility])[address], [place] [address] VIRMCV (RBC) [Entitic vol]89 nBIzpsce72-182NjhXsaeww [facility] HospitalComment on above: Performed By: #### CBCA ####[facility] ([facility])[address], [place] [address] VIRMONOCYTES ABSOLUTE COUNT (10*3/UL) BY AUTOMATED COUNT0.5 10*3/uLNormal0.0-0.9Paul[facility] County HospitalComforest view hospital on above:Performed By: #### CBCA ####[facility] ([facility])[address], [place] [address] VIRMONOCYTES RELATIVE PERCENT BY AUTOMATED COUNT4.4 %NormalPaulding County HospitalComforest view hospital on above:Performed By: #### CBCA ####[facility] ([facility])[address], [place] [address] VIRNEUTROPHILS ABSOLUTE COUNT BY AUTOMATED COUNT7.7 10*3/uL High1.5-6.6Paul[facility] County HospitalComforest view hospital on above:Performed By: #### CBCA ####[facility] ([facility])[address], [place] [address] VIRNEUTROPHILS RELATIVE PERCENT BY AUTOMATED COUNT74.7 %NormalPaulding County HospitalComforest view hospital on above:Performed By: #### CBCA ####[facility] ([facility])[address], [place] [address] VIRPlatelet mean volume (Bld) [Entitic vol]8.5 fLNormal7-12ProMedica Hinsdale HospitalComment on above:Performed By: #### CBCA ####[facility] ([facility])[address] [address] VIRPlatelets (Bld) [#/Vol]331 10*3/uLNormal 150-450ProMemorial Hermann Southwest HospitalComment on above:Performed By: #### CBCA ####[facility] ([facility])[address] [address] VIRRBC COUNT4.57 X10E12/LNormal3.8-5.2PCleveland Clinic Fairview HospitalComment on above:Performed By: #### CBCA ####[facility] ([facility])[address] [facility] [address], [place] [address] VIRWBC (Bld) [#/Vol]10.3 10*3/uLNormal4-11 [facility] HospitalComment on above:Performed By: #### CBCA ####[facility] ([facility])[address] [address] VIR CELIAC DISEASE SEROLOGY [facility] 84-72-9834NRPDVU DISEASE SEROLOGY [facility] HospitalComforest view hospital on above:Result Comment: Test Result Flag Unit RefValue Celiac Disease Serology [place] Immunoglobulin A (IgA), S 163 mg/dL 61 - 356 Celiac Disease Interpretation SEE COMMENTS See Comment: Negative serology. Celiac disease unlikely. However, approximately 10% of patients with celiac disease are seronegative. Also, patients who are already adhering to a gluten-free diet may be seronegative. If celiac disease is highly clinically suspected, consider HLA-DQ typing. Test Performed by: [facility] [address] [place] [address] Fur Remodeler: Jair Jackson Ph.D.; CLIA# [id number] By: #### CDSRO ####[facility] ([facility])[address] [place] [address] VIRLIPASEon 40-97-2133Iychhj [Catalytic activity/Vol]41 U/WAkskpv40-32IomVgnilfMemorial Hermann Southwest HospitalComment on above:Performed By: #### LIPA #### [facility] ([facility]) [address] [place] [address] VIRLIVER PANELon 92-96-0021Ayxcqno [Mass/Vol]3.8 g/dLNormal 3.2-5.3PCleveland Clinic Fairview HospitalComment on above:Performed By: #### LIVR #### [facility] ([facility]) [address] [place] [address] VIRALP [Catalytic activity/Vol]56 U/HZingde82-815TmeEevzaqMemorial Hermann Southwest HospitalComment on above:Performed By: #### LIVR #### [facility] ([facility]) [address] [place] [address] VIRALT [Catalytic activity/Vol]20 U/LNormal<=31PCleveland Clinic Fairview HospitalComment on above:Performed By: #### LIVR #### [facility] ([facility]) [address] [place] [address] VIRAST [Catalytic activity/Vol]16 U/LNormal<=41ProMemorial Hermann Southwest HospitalComment on above:Performed By: #### LIVR #### [facility] ([facility]) [address] [place] [address] VIRBilirubin [Mass/Vol]0.2 mg/dLLow0.3-1.2PCleveland Clinic Fairview HospitalComment on above:Performed By: #### LIVR #### [facility] ([facility]) [address] [place] [address] VIRBilirubin.indirect [Mass/Vol]mg/dLNormal<=0.4ProMemorial Hermann Southwest HospitalComment on above:Performed By: #### LIVR #### [facility] ([facility]) [address] [place] [address] VIRProtein [Mass/Vol]6.6 g/dLNormal6.0-8.0Paul[facility] County HospitalComment on above:Performed By: #### LIVR #### [facility] ([facility]) [address] [place] [address] VIRTRANSGLUTAMINASE IGAon 16-53-9906FTE AB IGA<1.2Normal<4.0 (Negative)[facility] County HospitalComment on above:Result Comment: Test Performed by: [facility] [address] [place] [address] Fur Remodeler: Jair Jackson Ph.D.; CLIA# [id number] By: #### TTGA ####[facility] ([facility])[address] [place] [address] VIRCBC WITH AUTO DIFFERENTIALon 40-75-4285CJAGSXSHQ ABSOLUTE COUNT (10*3/UL) BY AUTOMATED COUNT0.1 10*3/uLNormal0.0-0.2PCleveland Clinic Fairview HospitalComment on above: Performed By: #### CBCA #### [facility] ([facility]) [address] [place] [address] VIRBASOPHILS RELATIVE PERCENT BY AUTOMATED COUNT0.6 %Normal [facility] HospitalComment on above:Performed By: #### CBCA #### [facility] ([facility]) [address] [place] [address] VIRCELLAVISION DIFFERENTIAL TYPEAUTOMATED DIFFERENTIALNormal [facility] HospitalComment on above:Performed By: #### CBCA #### [facility] ([facility]) [address] [place] [address] VIREosinophils (Bld) [#/Vol]0.4 10*3/uLNormal0.0-0.4ProMemorial Hermann Southwest HospitalComment on above:Performed By: #### CBCA #### [facility] ([address] [place] [address] VIREOSINOPHILS RELATIVE PERCENT BY AUTOMATED COUNT3.8 %Normal [facility] HospitalComforest view hospital on above:Performed By: #### CBCA #### [facility] ([address] [place] [address] VIRErythrocyte distribution width (RBC) [Ratio]14.0 %Normal 11.5-15ProMed[facility] Valley HospitalComment on above:Performed By: #### CBCA #### [facility] ([address] [place] [address] VIRHematocrit (Bld) [Volume fraction]42.3 %Efuned75-04 [facility] HospitalComment on above:Performed By: #### CBCA #### [facility] ([address] [place] [address] VIRHemoglobin (Bld) [Mass/Vol]14.7 g/oJFjfkqz12.7-15.5 [facility] HospitalComment on above:Performed By: #### CBCA #### [facility] ([address] [place] [address] VIRLYMPHOCYTES ABSOLUTE COUNT (10*3/UL) BY AUTOMATED COUNT3.0 10*3/uLNormal1.0-3.5ProMedica [facility] HospitalComforest view hospital on above:Performed By: #### CBCA #### [facility] ([address] [place] [address] VIRLYMPHOCYTES RELATIVE PERCENT BY AUTOMATED COUNT27.0 %Normal [facility] HospitalComforest view hospital on above:Performed By: #### CBCA #### [facility] ([address] [address] VIRMCH (RBC) [Entitic mass]29.2 deQnrwzg18-50KbzFvqgbtMemorial Hermann Southwest HospitalComment on above:Performed By: #### CBCA #### [facility] ([address] [place] [address] VIRMCHC (RBC) [Mass/Vol]34.7 g/cXOtsoza88-18GyvBtouxbMemorial Hermann Southwest HospitalComment on above:Performed By: #### CBCA #### [facility] ([address] [place] [address] VIRMCV (RBC) [Entitic vol]84 jVKoivlx36-430JcpPhwrds [facility] HospitalComment on above:Performed By: #### CBCA #### [facility] ([address] [place] [address] VIRMONOCYTES ABSOLUTE COUNT (10*3/UL) BY AUTOMATED COUNT0.7 10*3/uLNormal0.0-0.9ProMemorial Hermann Southwest HospitalComment on above:Performed By: #### CBCA #### [facility] ([address] [place] [address] VIRMONOCYTES RELATIVE PERCENT BY AUTOMATED COUNT6.3 %Normal [facility] HospitalComforest view hospital on above:Performed By: #### CBCA #### [facility] ([address] [place] [address] VIRNEUTROPHILS ABSOLUTE COUNT BY AUTOMATED COUNT7.0 10*3/uL High1.5-6.6ProMemorial Hermann Southwest HospitalComforest view hospital on above:Performed By: #### CBCA #### [facility] ([address] [place] [address] VIRNEUTROPHILS RELATIVE PERCENT BY AUTOMATED COUNT62.3 %Normal [facility] HospitalComforest view hospital on above:Performed By: #### CBCA #### [facility] ([address] [place] [address] VIRPlatelet mean volume (Bld) [Entitic vol]8.4 fLNormal7-12 [facility] HospitalComment on above:Performed By: #### CBCA #### [facility] ([address] [place] [address] VIRPlatelets (Bld) [#/Vol]376 10*3/gTLfefjq910-228FilJosvla [facility] HospitalComment on above:Performed By: #### CBCA #### [facility] ([address] [place] [address] VIRRBC COUNT5.03 X10E12/LNormal3.8-5.2PCleveland Clinic Fairview HospitalComment on above:Performed By: #### CBCA #### [facility] ([address] [place] [address] VIRWBC (Bld) [#/Vol]11.2 10*3/uLHigh4-11ProMemorial Hermann Southwest HospitalComment on above:Performed By: #### CBCA #### [facility] ([address] [place] [address] VIRCOMPREHENSIVE METABOLIC PANELon 03-78-6989Dnkqrlb [Mass/Vol]3.5 g/dLNormal3.2-5.3PCleveland Clinic Fairview HospitalComment on above: Performed By: #### CMP #### [facility] ([address] [place] [address] VIRALP [Catalytic activity/Vol]61 U/JAcbvft59-727NpoCqasslMemorial Hermann Southwest HospitalComment on above:Performed By: #### CMP #### [facility] ([address] [place] [address] VIRALT [Catalytic activity/Vol]45 U/LHigh<=31PCleveland Clinic Fairview HospitalComment on above:Performed By: #### CMP #### [facility] ([place] [address] [place] [place] [address] VIRAnion gap [Moles/Vol]10 mmol/LNormal5-15ProMemorial Hermann Southwest HospitalComment on above:Performed By: #### CMP #### [facility] ([place] [address] [place] [address] VIRAST [Catalytic activity/Vol]26 U/LNormal<=41ProMemorial Hermann Southwest HospitalComment on above:Performed By: #### CMP #### [facility] ([place] [address] [place] [address] VIRBilirubin [Mass/Vol]0.6 mg/dLNormal0.3-1.2PCleveland Clinic Fairview HospitalComment on above:Performed By: #### CMP #### [facility] ([address] [place] [address] VIRCalcium [Mass/Vol]9.2 mg/dLNormal8.5-10.5PCleveland Clinic Fairview HospitalComment on above:Performed By: #### CMP #### [facility] ([address] [place] [address] VIRChloride [Moles/Vol]104 mmol/FNxweji84-993HvtWgvdrxMemorial Hermann Southwest HospitalComment on above:Performed By: #### CMP #### [facility] ([place] [address] [place] [address] VIRCO2 [Moles/Vol]24 mmol/EKclfta82-60ZjrDrwahrCleveland Clinic Fairview HospitalComment on above:Performed By: #### CMP #### [facility] ([place] [address] [place] [address] VIRCreatinine [Mass/Vol]0.77 mg/dLNormal0.40-1.00ProMemorial Hermann Southwest HospitalComment on above:Result Comment: METHOD TRACEABLE TO IDMS STANDARDPerformed By: #### CMP #### [facility] ([place] [address] [place] [address] VIREGFR (CKD-EPI) NON-RACE DEPENDENT>^90Normal>=60ProMemorial Hermann Southwest HospitalComment on above:Result Comment: eGFR not reported due to non- numeric value for Creatinine. Reported eGFR is based on the CKD-EPI 2020 equation that does not use a race coefficient.Performed By: #### CMP #### [facility] ([address] [place] [address] VIRGlucose [Mass/Vol]96 mg/qZIxigpw38-23KrwFgwjrbMemorial Hermann Southwest HospitalComment on above:Performed By: #### CMP #### [facility] ([address] [address] VIRPotassium [Moles/Vol]3.5 mmol/LNormal3.5-5.0ProMemorial Hermann Southwest HospitalComment on above:Performed By: #### CMP #### [facility] ([address] [address] VIRProtein [Mass/Vol]7.2 g/dLNormal6.0-8.0ProMemorial Hermann Southwest HospitalComment on above:Performed By: #### CMP #### [address] [address] VIRSodium [Moles/Vol]138 mmol/XXxobmk893-153WqfCwdrrb [facility] HospitalComment on above:Performed By: #### CMP #### [address] [address] VIRUrea nitrogen [Mass/Vol]11 mg/dLNormal5-23ProMemorial Hermann Southwest HospitalComment on above:Performed By: #### CMP #### [address] [address] VIRLIPASEon 09-77-3341Svvmhy [Catalytic activity/Vol]48 U/L Shaz12-14VizKwmayjMemorial Hermann Southwest HospitalComment on above:Performed By: #### LIPA #### [facility]) [address] [place] [address] VIRMAGNESIUMon 38-74-3862Sbmavaimj [Mass/Vol]1.7 mg/dLLow 1.8-2.6ProMemorial Hermann Southwest HospitalComment on above:Performed By: #### MG #### [facility] ([address] [address] VIRTROPONIN I, HIGH SENSITIVITY 0 HOURon 34-38-1568MWNEIBPQ I, HIGH SENSITIVITY<^2Normal<16ProMemorial Hermann Southwest HospitalComment on above: Performed By: #### [id number] #### [facility] ([address] [address] VIRIGP,APTIMA HPV,AGE GDLNon [id number] GDLN ACOG TESTING Note.NOMS HealthcareComment on above:TESTS RESULT FLAG UNITS REF RANGE LAB Clinician Provided Cytology Information Source.............Cervix;Endocervix No. of containers..01 ThinPrep Vial Age Algo ACOG Crystal... FLAG LEGEND: L-Low Normal,H-High Normal,LL-Alert Low,HH-Alert High <-Panic Low,>-Panic High,A-Abnormal,AA-Critical Abnormal Performed at: 01 =G [facility] [address] [place] [address] Lala Juarez MD, IGP, RFX APTIMA HPV ASCUNote.NOMS HealthcareComment on above:TESTS RESULT FLAG UNITS REF RANGE LAB DIAGNOSIS: 02 NEGATIVE FOR INTRAEPITHELIAL LESION OR MALIGNANCY. Specimen adequacy: 02 Satisfactory for evaluation. Endocervical and/or squamous metaplastic cells (endocervical component) are present. Performed by: 02 Pramod Lopez, After School Tutor ([facility]) . 02 Note: Note 03 The Pap [...] High,A-Abnormal,AA-Critical Abnormal Performed at: 02 [facility] [id number] [place] [id number] Andre Mccann MD, 03 WB [facility] [address] [address] Lala Juarez MD, Performed at: =G - [facility] [address], [place] [id number] Fur Remodeler: Lala Juarez MD, Phone: [phone] Performed at: [facility] - [facility] [id number] [place] [id number] Fur Remodeler: Andre Mccann MD, Phone: [phone] [facility] AND AUTO DIFFon [id number] BASOPHIL0.0 X10E9/LNormal0.0-0.2Pro[facility] Center At RiverbendComment on above:Performed By: #### CMP, CBCA, 3, #### [facility] ([id number]) [address] [facility] [place], [place] [id number] KXRZJZRRBN23.2 X10E9/LHigh1.5-6.6ProCommunity Regional Medical CenterComment on above:Performed By: #### CMP, CBCA, 03, #### [facility] ([id number]) [facility] [place] [place], [place] [address]Qyfpfkocz/100 WBC (Bld)0.3 %[facility] Comment on above:Performed By: #### CMP, CBCA, 3, #### [facility] ([id number]) [address] [place] [address] [address] [place], [place] [address]Galnjtlswml (Bld) [#/Vol]0.0 10*3/uLNormal0.0-0.4[facility] - WestComment on above:Performed By: #### CMP, CBCA, 3040-3, #### [facility] ([id number]) [address] [facility] [address] [place], [place] [address]Towhiacepjl/100 WBC (Bld)0.2 %[facility] Comment on above:Performed By: #### CMP, CBCA, 3, #### [facility] ([id number]) [address] [place], [place] [address]Wiomrqbodcu distribution width (RBC) [Ratio]14.9 %Normal 11.5-15.0ProCommunity Regional Medical CenterComment on above:Performed By: #### CMP, CBCA, 3, #### [facility] ([id number]) [address] [facility] [place], [place] [address]Yarfvyllve (Bld) [Volume fraction]42.7 %Bqdfkn68-25KvhBtluckCommunity Regional Medical CenterComment on above:Performed By: #### CMP, CBCA, 3, #### [facility] ([id number]) [address] [facility] [place], [place] [address]Ziambjyjyp (Bld) [Mass/Vol]14.3 g/pZEtlpin49.7-15.5PKettering Health Behavioral Medical CenterComment on above:Performed By: #### CMP, CBCA, 3, #### [facility] ([id number]) [address] [facility] [place], [place] [address]Ypsfjaczrrn (Bld) [#/Vol]0.6 10*3/uLLow1.0-3.5PKettering Health Behavioral Medical CenterComment on above:Performed By: #### CMP, CBCA, 3, #### [facility] ([id number]) [address] [facility] [place], [place] [address]Zlzwkbrehws/100 WBC (Bld)3.7 %NormalProCommunity Regional Medical Center Comment on above:Performed By: #### CMP, CBCA, 3, #### [facility] ([id number]) [address] [facility] [place], [place] [address]YTW (RBC) [Entitic mass]27.9 ogLjcisx92-88JwiQiyuboCommunity Regional Medical CenterComment on above:Performed By: #### CMP, CBCA, 3, #### [facility] ([id number]) [address] [place], [place] [address]JLCY (RBC) [Mass/Vol]33.4 g/aRUvxkfh20-19DegRztmikCommunity Regional Medical CenterComment on above:Performed By: #### CMP, CBCA, 3040-3, #### [facility] ([id number]) [address] [place], [place] [address]ALV (RBC) [Entitic vol]84 cAMereql11-894QelDywtrh Baypark HospitalComment on above:Performed By: #### CMP, CBCA, 0-3, #### [facility] ([id number]) [address] [place], [place] [address]Cgrvbgdzk (Bld) [#/Vol]0.6 10*3/uLNormal0-0.9[facility] - WestComment on above:Performed By: #### CMP, CBCA, 03, #### [facility] ([id number]) [address] [place], [place] [address]Iaaooylnr/100 WBC (Bld)3.5 %[facility] Comment on above:Performed By: #### CMP, CBCA, 03, #### [facility] ([id number]) [address] [place], [place] [address]Tvcyiyvkyvg/100 WBC (Bld)92.3 %[facility] Comment on above:Performed By: #### CMP, CBCA, 30403, #### [facility] ([id number]) [address] [place], [place] [address]Pidxhlty mean volume (Bld) [Entitic vol]8.2 fLNormal7-12 ProMGerman HospitalComment on above:Performed By: #### CMP, CBCA, 3040-3, #### [facility] ([id number]) [address] [place], [place] [address]Kvlxzobyp (Bld) [#/Vol]368 10*3/aOOsyalo684-241BwgQckmlf Baypark HospitalComment on above:Performed By: #### ZAID GUTHRIE, 3039-3, #### [facility] ([id number]) [address] [place], [place] [address]JTK COUNT5.11 X10E12/LNormal3.80-5.20ProCommunity Regional Medical Center Comment on above:Performed By: #### ZAID GUTHRIE, 3, #### [facility] ([id number]) [address] [place], [place] [address]PFU (Bld) [#/Vol]16.4 10*3/uLHigh4.0-11.0ProCommunity Regional Medical CenterComment on above:Performed By: #### ZAID GUTHRIE, 3, #### [facility] ([id number]) [address] [place], [place] [address]XPJVYEXHWPZYE METABOLIC PANELon 76-96-9392Xqrjhso [Mass/Vol]3.4 g/dLNormal3.2-5.3PKettering Health Behavioral Medical CenterComment on above:Performed By: #### ZAID GUTHRIE, 3, #### [facility] ([id number]) [address] [place], [place] [address]IRP [Catalytic activity/Vol]63 U/AJohnnb27-035PunAgqodtCommunity Regional Medical CenterComment on above:Performed By: #### ZAID GUTHRIE, 3, #### [facility] ([id number]) [address] [place], [place] [address]ORJ [Catalytic activity/Vol]17 U/LNormal0-31PKettering Health Behavioral Medical CenterComment on above:Performed By: #### ZAID GUTHRIE, 0-3, #### [facility] ([id number]) [address] [place], [place] [address]Mlweb gap [Moles/Vol]12 mmol/LNormal5-15ProCommunity Regional Medical CenterComment on above:Performed By: #### [place], CBCSumeet, 3040-3, #### [facility] ([id number]) [address] [place], [place] [address]VNE [Catalytic activity/Vol]20 U/LNormal0-41ProCommunity Regional Medical CenterComment on above:Performed By: #### [place], CBCA, 3040-3, #### [facility] ([id number]) [address] [place], [place] [address]Qkmsmgags [Mass/Vol]0.6 mg/dLNormal0.3-1.2PKettering Health Behavioral Medical CenterComment on above:Performed By: #### ZAID GUTHRIE, 0-3, #### [facility] ([id number]) [address] [place], [place] [address]Eqonnem [Mass/Vol]8.8 mg/dLNormal8.5-10.5PKettering Health Behavioral Medical CenterComment on above:Performed By: #### [place], CBCA, 0-3, #### [facility] ([id number]) [address] [place], [place] [address]Pokznpsy [Moles/Vol]104 mmol/SOkjudu47-102UyrNvobkfCommunity Regional Medical CenterComment on above:Performed By: #### [place] CBCSumeet, 03, #### [facility] ([id number]) [address] [place], [place] [address]XC1 [Moles/Vol]23 mmol/IPsietf26-41ArrKbybdfKettering Health Behavioral Medical Center Comment on above:Performed By: #### [place], CBCA, 3040-3, #### [facility] ([id number]) [address] [place], [place] [address]Vfkcnkjerv [Mass/Vol]0.76 mg/dLNormal0.40-1.00ProCommunity Regional Medical CenterComment on above:Result Comment: METHOD TRACEABLE TO IDMS STANDARD Performed By: #### [place], CBCA, 3040-3, #### [facility] ([id number]) [address] [facility] [place], [place] [address]tZUB (CKD-EPI) NON-RACE DEPENDENT>90Normal>59ProCommunity Regional Medical CenterComment on above:Result Comment: Reported eGFR is based on the CKD-EPI 1 equation that does not use a race coefficient.Performed By: #### ZAID GUTHRIE, 3040-3, #### [facility] ([id number]) [address] [place], [place] [address]Kzuftws [Mass/Vol]124 mg/sAKwsa56-40LuvGiodjpCommunity Regional Medical Center Comment on above:Performed By: #### ZAID GUTHRIE, 03, #### [facility] ([id number]) [address] [place], [place] [address]Urqepqlwr [Moles/Vol]4.0 mmol/LNormal3.5-5.0ProCommunity Regional Medical CenterComment on above:Performed By: #### ZAID GUTHRIE, 03, #### [facility] ([id number]) [address] [place], [place] [address]Uqdocda [Mass/Vol]7.5 g/dLNormal6.0-8.0ProCommunity Regional Medical CenterComment on above:Performed By: #### ZAID GUTHRIE, 3, #### [facility] ([id number]) [address] [place], [place] [address]Ajwavw [Moles/Vol]139 mmol/YVawkhr901-957BgfDouwly Baypark HospitalComment on above:Performed By: #### ZAID GUTHRIE, 3040-3, #### [facility] ([id number]) [address] [place], [place] [address]Ehim nitrogen [Mass/Vol]11 mg/dLNormal5-23ProCommunity Regional Medical CenterComment on above:Performed By: #### ZAID UGTHRIE, 3040-3, #### [facility] ([id number]) [address] [place], [place] [address]SV ABDOMEN AND PELVIS WO CONTon 04-75-9753XC ABDOMEN AND PELVIS WO CONTCT ABDOMEN AND PELVIS WO CONT CT ABDOMEN [...] by Curly Rocha DO on 04/10/2024 10:28 PMNormalProCommunity Regional Medical CenterHCG ( test) Ql (U)on 73-65-2820Widc HCG ( test) Ql (U) NegativeNormalNEGProCommunity Regional Medical CenterComment on above:Performed By: #### 2106-3 #### [facility] ([id number]) [address] [place], [place] [address]CVDYAOkj 65-32-4439Hhahys [Catalytic activity/Vol]29 U/LNormal 17-40[facility] Hospital - WestComment on above:Performed By: #### CMP, CBCA, 3040-3, 43791-6 #### [facility] ([id number]) [address] [place], [place] [address]MTDXBPBEDqe 17-02-1316Smvxuozio [Mass/Vol]1.8 mg/dLNormal1.8-2.6 [facility] Center At RiverbendComment on above:Performed By: #### CMP, CBCA, 3040-3, 54398-3 #### [facility] ([id number]) [address] [facility] [place], [place] [address]SCD MACROSCOPIC NURon 08-57-9969OM EXTRA URINESER EXTRA URINE ORDER IN PROCESSNoalProCommunity Regional Medical CenterComment on above:Performed By: #### NUM #### [facility] ([id number]) [address] [facility] [place], [place] [address]EQ ELBOW RT MIN 3 VWSon 08-89-0188UH ELBOW RT MIN 3 VWSXR ELBOW RT MIN 3 VWS 3 VIEWS RIGHT ELBOW HISTORY: Fall, pain COMPARISON: 01/28/2024 IMPRESSION: * No acute fracture or malalignment in the right elbow. * No right elbow joint effusion. Finalized by Ana Narvaez MD on 04/10/2024 12:35 PMNormalPaulding County HospitalXR WRIST RT MIN 3 VWSon 34-66-9505NG WRIST RT MIN 3 VWSXR WRIST RT MIN 3 VWS History: Fall. Right wrist pain Exam/Technique: AP, lateral, oblique views of the wrist Comparison: None Available Findings: There is no evidence of fracture, malalignment or an acute bony abnormality. The lateral view shows normal alignment of the distal radius, lunate and capitate. IMPRESSION: * No acute findings. Finalized by Dick Whitmore DO on 04/10/2024 12:36 PMNAvita Health System Ontario HospitalXR ELBOW RT MIN 3 VWSon 16-29-8344NO ELBOW RT MIN 3 VWSXR ELBOW RT MIN 3 VWS HISTORY: A [...] by Rory Roldan MD on 01/28/2024 1:26 PMNormalProMedica [facility] 33-69-6093EUynkurlm: [id number] Received: 09/12/23 Status: SHWETA Solorio Num: [id number] Spec Type: Surgical Subm Dr: Alvarado Perry Tissues: A Placenta - 3rd Trimester (Greater than 28 weeks) (PLACENTA) Procedures: HE/5, Gross/Micro L5 Age/ Patient Sex Location Account Attending Physician Darrius Kramer 28/F LABELL [id number] Alvarado Perry SPEC NUM: [id number] RECD: 09/12/23 STATUS: SHWETA SOLORIO NUM: [id number] CHERRI: 09/10/[address]: Alvarado Perry ENTERED: 09/12/[address] [facility] [address]: Brianna,Lab SPEC TYPE: Surgical DEPT: LATISHA [...] cord. The 25.4 x 1.2 cm, three-vessel, padilla umbilical cord inserts eccentrically into the chorionic plate, 1.3 cm from the placental disc margin. The cord has normal spiraling with no knots or lesions present. The marginally inserted, complete membranes are padilla, slippery and translucent, with the point of rupture 11.4 cm from the disc margin. Intramembranous blood vessels are absent. Specimen: [id number] Received: 09/12/23 Status: SHWETA Oronadenise Num: [id number] Spec Type: Surgical Subm Dr: Alvarado Perry Tissues: A Placenta - 3rd Trimester (Greater than 28 weeks) (PLACENTA) Procedures: , Gross/Micro L5 Patient: Darrius Kramer [id number] (Continued) Specimen: [id number] Received: 09/12/23 (Continued) Gross Description (Continued) Signed (signature on file) Evon Young MD 09/15/23 1846 Specimen: [id number] Received: 09/12/23 Status: SHWETA Solorio Num: [id number] Spec Type: Surgical Subm Dr: Alvarado Perry Tissues: A Placenta - 3rd Trimester (Greater than 28 weeks) (PLACENTA) Procedures: HE/5, Gross/Micro L5 Patient: Darrius Kramer [id number] (Continued) Specimen: [id number] Received: 09/12/23 (Continued) Gross Description (Continued) The chorionic plate is villalobos-blue with patent vessels that span out magistrally over the surface. The maternal surface has intact, lobulated cotyledons. There is a 6.3 x 1.5 cm hemorrhagic area of possible abruption along the maternal surface of the disc comprising of approximately 25% of the disc. Sectioning demonstrates a firm padilla-yellow nodule measuring 1.8 x 0.7 x 0.6 [...] section A4: Possible site of abruption A5: Padilla-yellow nodule TW Microscopic Description Microscopic examinations are performed supporting the above interpretation CPT Codes 05663 Specimen: [id number] Received: 09/12/23 Status: SHWETA Solorio Num: [id number] Spec Type: Surgical Subm Dr: Alvarado Perry Tissues: A Placenta - 3rd Trimester (Greater than 28 weeks) (PLACENTA) Procedures: HE/5, Gross/Micro L5 Patient: Darrius Kramer [id number] (Continued) (more content not included)...NormalThe Person Memorial Hospital Physician GroupUS OB BPP W NON-STRESSon 27-30-3734F[address] [address] Ultrasound Report Signed Patient: DARRIUS KRAMER MR#: [id number] : 1995 Acct:[id number] Age/Sex: 28 / F ADM Date: 09/07/23 Loc: [facility] 250-[address]: Alvarado Perry D.O. Ordering Physician: Alvarado Perry D.O. Date of Service: 09/07/23 Procedure(s): US OB BPP w non-stress Accession Number(s): [id number] cc: Alvarado Perry D.O.; Physician,Non-Staff Gertrudis The [place] [id number] Patient Name: DARRIUS KRAMER MRN: [facility]:[id number] date: 1995 Sex: F Assigned Patient Location: [facility] Current Patient Location: [facility] Accession/Order Number: [id number] Exam Date: 09/07/2023 11:00 Report Date: 09/07/2023 11:29 At the request of: ALVARADO PERRY Procedure: US OB BPP w non-stress [...] profile score: 8 Electronically authenticated by: ELDER JASSO Date: 09/07/2023 11:29 Dictated By: Elder Jasso M.D. Signed By: 09/07/23 1132 DD/ 1129 TD/TT: Program Analyst:LAURIadiology, Radiologist, - 09/07/2023 [place] [address] Ultrasound Report Signed Patient: DARRIUS KRAMER MR#: [id number] : 1995 Acct:[id number] Age/Sex: 28 / F ADM Date: 09/07/23 Loc: [facility] 250-[address]: Alvarado Perry D.O. Ordering Physician: Alvarado Perry D.O. Date of Service: 09/07/23 Procedure(s): US OB BPP w non-stress Accession Number(s): [id number] cc: Alvarado Perry D.O.; Physician,Non-Staff Gertrudis [address] [address] Patient Name: DARRIUS KRAMER MRN: [id number] date: 1995 Sex: F Assigned Patient Location: [facility] Current Patient Location: [facility] Accession/Order Number: [id number] Exam Date: 09/07/2023 11:00 Report Date: 09/07/2023 11:29 At the request of: ALVARADO PERRY Procedure: US OB BPP w non-stress [...] profile score: 8 Electronically authenticated by: ELDER JASSO Date: 09/07/2023 11:29 Dictated By: Elder Jasso M.D. Signed By: 09/07/23 1132 DD/ 1129 TD/TT: Program Analyst: UMBERTO HealthcareRadiology Study observation (narrative)UMBERTO HealthcareUS OB BPP W NON-STRESSOrdered By: Radiologist Radiology on 93-60-8772EGUI Healthcare Work Phone: US OB BPP W NON-STRESSon 26-00-7225J[address] [address] Ultrasound Report Signed Patient: DARRIUS KRAMER#: [id number] : 1995 Acct:[id number] Age/Sex: 28 / F ADM Date: 08/25/23 Loc: [facility] 250-[address]: Alvarado Perry D.O. Ordering Physician: Alvarado Perry D.O. Date of Service: 08/25/23 Procedure(s): US OB BPP w non-stress Accession Number(s): [id number] cc: Alvarado Perry D.O.; Physician,Non-Staff Gertrudis The [place] [address] Patient Name: DARRIUS KRAMER MRN: [facility]:[id number] date: 1995 Sex: F Assigned Patient Location: [facility] Current Patient Location: [facility] Accession/Order Number: [id number] Exam Date: 08/25/2023 10:15 Report Date: 08/25/2023 10:54 At the request of: ALVARADO PERRY Procedure: US OB BPP w non-stress [...] profile score: 8 Electronically authenticated by: ELDER JASSO Date: 08/25/2023 10:54 Dictated By: Elder Jasso M.D. Signed By: 08/25/23 1056 DD/ 1054 TD/TT: Program Analyst:LAURIadiologcourtney, Radiologist, - 08/25/2023 [place] [address] Ultrasound Report Signed Patient: DARRIUS KRAMER MR#: [id number] : 1995 Acct:[id number] Age/Sex: 28 / F ADM Date: 08/25/23 Loc: [facility] 250-[address]: Alvarado Perry D.O. Ordering Physician: Alvarado Perry D.O. Date of Service: 08/25/23 Procedure(s): US OB BPP w non-stress Accession Number(s): [id number] cc: Alvarado Perry D.O.; Physician,Non-Staff Gertrudis [place] [address] Patient Name: DARRIUS KRAMER MRN: [id number] date: 1995 Sex: F Assigned Patient Location: [facility] Current Patient Location: [facility] Accession/Order Number: [id number] Exam Date: 08/25/2023 10:15 Report Date: 08/25/2023 10:54 At the request of: ALVARADO PERRY Procedure: US OB BPP w non-stress [...] profile score: 8 Electronically authenticated by: ELDER JASSO Date: 08/25/2023 10:54 Dictated By: Elder Jasso M.D. Signed By: 08/25/23 1056 DD/ 1054 TD/TT: Program Analyst: UMBERTO HealthcareRadiology Study observation (narrative)NOMMadeleine HealthcareUS OB BPP W NON-STRESSOrdered By: Radiologist Radiology on 78-37-5352BPAT Healthcare Work Phone: US OB BPP W NON-STRESSon 65-03-1617Hng[address] [address] Ultrasound Report Signed Patient: DARRIUS KRAMER MR#: [id number] : 1995 Acct:[id number] Age/Sex: 28 / F ADM Date: 08/17/23 Loc: [facility] 250-[address]: Alvarado Perry D.O. Ordering Physician: Alvarado Perry D.O. Date of Service: 08/17/23 Procedure(s): US OB BPP w non-stress Accession Number(s): [id number] cc: Alvarado Perry D.O.; Physician,Non-Staff Gertrudis The [address] [address] Patient Name: DARRIUS KRAMER MRN: [id number] date: 1995 Sex: F Assigned Patient Location: [facility] Current Patient Location: [facility] Accession/Order Number: [id number] Exam Date: 08/17/2023 10:18 Report Date: 08/17/2023 11:26 At the request of: ALVARADO PERRY Procedure: US OB BPP w non-stress [...] biophysical profile score: 8 Electronically authenticated by: CR MORENO Date: 08/17/2023 11:26 Dictated By: Cr Moreno M.D. Signed By: 08/17/23 1129 DD/ 1126 TD/TT: Program Analyst:TBHRadiology, Radiologist, - 08/17/[address] [place] [address] Ultrasound Report Signed Patient: DARRIUS KRAMER MR#: [id number] : 1995 Acct:[id number] Age/Sex: 28 / F ADM Date: 08/17/23 Loc: [facility] 250-[address]: Alvarado Perry D.O. Ordering Physician: Alvarado Perry D.O. Date of Service: 08/17/23 Procedure(s): US OB BPP w non-stress Accession Number(s): [id number] cc: Alvarado Perry D.O.; Physician,Non-Staff Gertrudis [place] [address] Patient Name: DARRIUS KRAMER MRN: [id number] date: 1995 Sex: F Assigned Patient Location: [facility] Current Patient Location: [facility] Accession/Order Number: [id number] Exam Date: 08/17/2023 10:18 Report Date: 08/17/2023 11:26 At the request of: ALVARADO PERRY Procedure: US OB BPP w non-stress [...] biophysical profile score: 8 Electronically authenticated by: CR MORENO Date: 08/17/2023 11:26 Dictated By: Cr Moreno M.D. Signed By: 08/17/23 1129 DD/ 112 TD/TT: Program Analyst: UMBERTO HealthcareRadiology Study observation (narrative)NOMMadeleine HealthcareUS OB BPP W NON-STRESSOrdered By: Radiologist Radiology on 73-85-7498MINF Healthcare Work Phone: US OB BPP W NON-STRESSon 61-53-3295Ibg [address] [address] Ultrasound Report Signed Patient: DARRIUS KRAMER MR#: [id number] : 1995 Acct:[id number] Age/Sex: 28 / F ADM Date: 08/04/23 Loc: [facility] 250-[address]: Alvarado Perry D.O. Ordering Physician: Alvarado Perry D.O. Date of Service: 08/04/23 Procedure(s): US OB BPP w non-stress Accession Number(s): [id number] cc: Alvarado Perry D.O.; Physician,Non-Staff Gertrudis The [address] [address] Patient Name: DARRIUS KRAMER MRN: [id number] date: 1995 Sex: F Assigned Patient Location: [facility] Current Patient Location: [facility] Accession/Order Number: [id number] Exam Date: 08/04/2023 12:50 Report Date: 08/04/2023 13:38 At the request of: ALVARADO PERRY Procedure: US OB BPP w non-stress [...] biophysical profile score 8.0. Electronically authenticated by: CR MORENO Date: 08/04/2023 13:38 Dictated By: Cr Moreno M.D. Signed By: 08/04/23 1347 DD/ 1338 TD/TT: Program Analyst:LAURIadiology, Radiologist, - 08/04/[address] [address] Ultrasound Report Signed Patient: DARRIUS KRAMER MR#: [id number] : 1995 Acct:[id number] Age/Sex: 28 / F ADM Date: 08/04/23 Loc: [facility] 250-[address]: Alvarado Perry D.O. Ordering Physician: Alvarado Perry D.O. Date of Service: 08/04/23 Procedure(s): US OB BPP w non-stress Accession Number(s): [id number] cc: Alvarado Perry D.O.; Physician,Non-Staff Gertrudis [address] [address] Patient Name: DARRIUS KRAMER MRN: [id number] date: 1995 Sex: F Assigned Patient Location: [facility] Current Patient Location: [facility] Accession/Order Number: [id number] Exam Date: 08/04/2023 12:50 Report Date: 08/04/2023 13:38 At the request of: ALVARADO PERRY Procedure: US OB BPP w non-stress [...] biophysical profile score 8.0. Electronically authenticated by: CR MORENO Date: 08/04/2023 13:38 Dictated By: Cr Moreno M.D. Signed By: 08/04/23 1340 DD/ 1338 TD/TT: Program Analyst: UMBERTO TrevinoRadiology Study observation (narrative)UMBERTO TrevinoUS OB BPP W NON-STRESSOrdered By: Radiologist Radiology on 86-30-2431DG[facility] Work Phone: Ultrasound officeon 56-71-4018Gzzyoqxuu Study observation (narrative)[facility] SystemRad[facility] Study observation (narrative)[facility] SystemRadiology Study observation (narrative) [facility] SystemRad[facility] Study observation (narrative)[facility] SystemRadiology Study observation (narrative)[facility] SystemNo Panel Informationon 67-50-4504VUR SCANNED REPORTMANUALLY TRANSCRIBED RESULTSProMedica Health SystemUS for multiple gestation limitedon 79-14-[place] [address] Ultrasound Report Signed Patient: DARRIUS KRAMER MR#: [id number] : 1995 Acct:[id number] Age/Sex: 28 / F ADM Date: 06/14/23 Loc: [facility] Attending Dr: Alvarado Perry D.O. Ordering Physician: Alvarado Perry D.O. Date of Service: 06/14/23 Procedure(s): US OB follow up Accession Number(s): [id number] cc: Alvarado Perry D.O.; Physician,Non-Staff Gertrudis [address] [address] Patient Name: DARRIUS KRAMER MRN: [id number] date: 1995 Sex: F Assigned Patient Location: [facility] Current Patient Location: [facility] Accession/Order Number: [id number] Exam Date: 06/14/2023 08:46 Report Date: 06/14/2023 10:45 At the request of: ALVARADO PERRY Procedure: US OB follow up EXAMINATION: [...] evaluation is recommended Electronically authenticated by: ELDER JASSO Date: 06/14/2023 10:45 Dictated By: Elder Jasso M.D. Signed By: 06/14/231046 DD/ 44 TD/TT: Program Analyst:LAURIadiologcourtney, Radiologist, - 06/14/2023 [place] [address] Ultrasound Report Signed Patient: DARRIUS KRAMER MR#: [id number] : 1995 Acct:[id number] Age/Sex: 28 / F ADM Date: 06/14/23 Loc: [facility] Attending Dr: Alvarado Perry D.O. Ordering Physician: Alvarado Perry D.O. Date of Service: 06/14/23 Procedure(s): US OB follow up Accession Number(s): [id number] cc: Alvarado Perry D.O.; Physician,Non-Staff [place] [address] Patient Name: DARRIUS KRAMER MRN: [id number] date: 1995 Sex: F Assigned Patient Location: [facility] Current Patient Location: [facility] Accession/Order Number: [id number] Exam Date: 06/14/2023 08:46 Report Date: 06/14/2023 10:45 At the request of: ALVARADO PERRY Procedure: US OB follow up EXAMINATION: [...] evaluation is recommended Electronically authenticated by: ELDER JASSO Date: 06/14/2023 10:45 Dictated By: Elder Jasso M.D. Signed By: 06/14/237 DD/ 44 TD/TT: Program Analyst: [facility] HealthcareRadiology Study observation (narrative)[facility] HealthcareNo Panel Informationon [id number] [place], [place] [address]US OB CERVICAL LENGTHon 03-50-4882P[place] [address] Ultrasound Report Signed Patient: DARRIUS KRAMER MR#: [id number] : 1995 Acct:[id number] Age/Sex: 28 / F ADM Date: 05/26/23 Loc: US Attending Dr: Alvarado Perry D.O. Ordering Physician: Alvarado Perry D.O. Date of Service: 05/26/23 Procedure(s): US OB cervical length Accession Number(s): [id number] cc: Alvarado Perry D.O.; Physician,Non-Staff Gertrudis The [place] [address] Patient Name: DARRIUS KRAMER MRN: [id number] date: 1995 Sex: F Assigned Patient Location: US Current Patient Location: US Accession/Order Number: [id number] Exam Date: 05/26/2023 09:58 Report Date: 05/26/2023 11:07 At the request of: ALVARADO PERRY Procedure: US OB cervical length EXAMINATION: US OB cervical length HISTORY: screening for cervical length Z36.86 COMPARISON: No relevant comparison available. FINDINGS: Position: Cephalic presentation, longitudinal lie Heart rate: 158 bpm Cervix: 3.8 cm, closed US/US OB cervical length IMPRESSION: Closed cervix measuring 3.8 cm in length Electronically authenticated by: ELDER JASSO Date: 05/26/2023 11:07 Dictated By: Elder Jasso M.D. Signed By: 05/26/23 1109 DD/ 1107 TD/TT: Program Analyst:EZEHRadiology, Radiologist, MD - 05/26/2023 [place] [address] Ultrasound Report Signed Patient: DARRIUS KRAMER MR#: [id number] : 1995 Acct:[id number] Age/Sex: 28 / F ADM Date: 05/26/23 Loc: US Attending Dr: Alvarado Perry D.O. Ordering Physician: Alvarado Perry D.O. Date of Service: 05/26/23 Procedure(s): US OB cervical length Accession Number(s): [id number] cc: Alvarado Perry D.O.; Physician,Non-Staff Gertrudis The [address] [address] Patient Name: DARRIUS KRAMER MRN: [facility]:[id number] date: 1995 Sex: F Assigned Patient Location: US Current Patient Location: US Accession/Order Number: [id number] Exam Date: 05/26/2023 09:58 Report Date: 05/26/2023 11:07 At the request of: ALVARADO PERRY Procedure: US OB cervical length EXAMINATION: US OB cervical length HISTORY: screening for cervical length Z36.86 COMPARISON: No relevant comparison available. FINDINGS: Position: Cephalic presentation, longitudinal lie Heart rate: 158 bpm Cervix: 3.8 cm, closed US/US OB cervical length IMPRESSION: Closed cervix measuring 3.8 cm in length Electronically authenticated by: ELDER JASSO Date: 05/26/2023 11:07 Dictated By: Elder Jasso M.D. Signed By: 05/26/23 1109 DD/ 1107 TD/TT: Program Analyst: UMBERTO HealthcareRadiology Study observation (narrative)[facility] HospitalUltrasound officeon 94-98-8194KPI SCANNED REPORTMANUALLY TRANSCRIBED RESULTSNo Panel Informationon 48-24-3468RcgRtluje Health SystemRadiology Study observation (narrative)[facility] HospitalUS OB ANATOMYon 04-89-5020[address] [address] Ultrasound Report Signed Patient: DARRIUS KRAMER MR#: [id number] : 1995 Acct:[id number] Age/Sex: 28 / F ADM Date: 05/12/23 Loc: NOMS Attending Dr: Alvarado Perry D.O. Ordering Physician: Alvarado Perry D.O. Date of Service: 05/12/23 Procedure(s): US OB anatomy Accession Number(s): [id number] cc: Alvarado Perry D.O.; Physician,Non-Staff Gertrudis The [place] [id number] Patient Name: DARRIUS KRAMER MRN: [id number] date: 1995 Sex: F Assigned Patient Location: [facility] Current Patient Location: [facility] Accession/Order Number: [id number] Exam Date: 05/12/2023 09:18 Report Date: 05/12/2023 11:05 At the request of: ALVARADO PERRY Procedure: US OB anatomy EXAMINATION: US [...] cannot be excluded. Electronically authenticated by: CR MORENO Date: 05/12/2023 11:05 Dictated By: Cr Moreno M.D. Signed By: 05/12/23 1108 DD/ 1105 TD/TT: Program Analyst:TBHRadiology, Radiologist, MD - 05/12/2023 [place] [address] Ultrasound Report Signed Patient: DARRIUS KRAMER MR#: [id number] : 1995 Acct:[id number] Age/Sex: 28 / F ADM Date: 05/12/23 Loc: [facility] Attending Dr: Alvarado Perry D.O. Ordering Physician: Alvarado Perry D.O. Date of Service: 05/12/23 Procedure(s): US OB anatomy Accession Number(s): [id number] cc: Alvarado Perry D.O.; Physician,Non-Staff Gertrudis The [place] [id number] Patient Name: DARRIUS KRAMER MRN: [facility]:[id number] date: 1995 Sex: F Assigned Patient Location: [facility] Current Patient Location: [facility] Accession/Order Number: [id number] Exam Date: 05/12/2023 09:18 Report Date: 05/12/2023 11:05 At the request of: ALVARADO PERRY Procedure: US OB anatomy EXAMINATION: US [...] cannot be excluded. Electronically authenticated by: CR MORENO Date: 05/12/2023 11:05 Dictated By: Cr Moreno M.D. Signed By: 05/12/23 1108 DD/ 1105 TD/TT: Program Analyst: UMBERTO Leal OB CERVICAL LENGTHon 16-96-1574[place], [place] [address] Ultrasound Report Signed Patient: DARRIUS KRAMER MR#: [id number] : 1995 Acct:[id number] Age/Sex: 28 / F ADM Date: 05/12/23 Loc: UMBERTO Attending Dr: Alvarado Perry D.O. Ordering Physician: Alvarado Perry D.O. Date of Service: 05/12/23 Procedure(s): US OB cervical length Accession Number(s): [id number] cc: Alvarado Perry D.O.; Physician,Non-Staff Gertrudis [address] [address] Patient Name: DARRIUS KRAMER MRN: [id number] date: 1995 Sex: F Assigned Patient Location: [facility] Current Patient Location: [facility] Accession/Order Number: [id number] Exam Date: 05/12/2023 09:18 Report Date: 05/12/2023 11:05 At the request of: ALVARADO PERRY Procedure: US OB cervical length EXAMINATION: [...] cannot be excluded. Electronically authenticated by: CR MORENO Date: 05/12/2023 11:05 Dictated By: Cr Moreno M.D. Signed By: 05/12/23 1108 DD/ 1105 TD/TT: Program Analyst:TBHRadiology, Radiologist, MD - 05/12/2023 [place] [address] Ultrasound Report Signed Patient: DARRIUS KRAMER MR#: [id number] : 1995 Acct:[id number] Age/Sex: 28 / F ADM Date: 05/12/23 Loc: [facility] Attending Dr: Alvarado Perry D.O. Ordering Physician: Alvarado Perry D.O. Date of Service: 05/12/23 Procedure(s): US OB cervical length Accession Number(s): [id number] cc: Alvarado Perry D.O.; Physician,Non-Staff Gertrudis The [place] [address] Patient Name: DARRIUS KRAMER MRN: [facility]:[id number] date: 1995 Sex: F Assigned Patient Location: [facility] Current Patient Location: [facility] Accession/Order Number: [id number] Exam Date: 05/12/2023 09:18 Report Date: 05/12/2023 11:05 At the request of: ALVARADO PERRY Procedure: US OB cervical length EXAMINATION: [...] cannot be excluded. Electronically authenticated by: CR MORENO Date: 05/12/2023 11:05 Dictated By: Cr Moreno M.D. Signed By: 05/12/23 1108 DD/ 1105 TD/TT: Program Analyst: UMBERTO [facility] Medical CenterUltgila regional medical centeround officeon 24-56-9112VBC SCANNED REPORTMANUALLY TRANSCRIBED RESULTSChlamydia/GC by PCR Júnior Swabon 17-70-2152Floruzztl Dna(Pcr) NegativeProMercy Health Springfield Regional Medical CenterGonorrhoeae Dna(Pcr)NegativeProValley Forge Medical Center & HospitalUrinalysis macro (dipstick) panel (U)on 04-14-2023 Bilirubin, UANegativeNegative - 4(70) +++ mg/dLNOMS HealthcareBlood, UANegative Negative - 50 Bill/mcLNOMS HealthcareClarity, UAClearNOMS HealthcareColor, UA YellowNOMS HealthcareGlucose, UANegativeNegative - 2000(110) ++++ mg/dLNOMS HealthcareInterpretation and review of laboratory resultsAbnormalNOOR Healthcare Ketones, UAPositiveNegative - 160(16) ++++ mg/dLNOMS HealthcareComment on above: 40 mgLeukocytes, UANegativeNegative - 500+++ Simon/mcLNOMS HealthcareNitrite, UA NegativeNegative - PositiveNOMS HealthcarepH, UA7.05 - 9NOMS HealthcareProtein, UATraceNegative - 2000(20) ++++ mg/dLNOMS HealthcareSpec Grav, UA1.0251 - 1.03 NOMS HealthcareUrobilinogen, UA0.20.2 - 12 mg/dLNOMS HealthcareNOMS Healthcare Unlisted Genetic Teston 95-22-8067VTW SCANNED REPORTMANUALLY TRANSCRIBED RESULTS [facility] SystemHIV 1&2 AB/AG Screen (P24 AG)on 47-67-3031WEN 1&2 AB/AG Non-ReactiveSt. Elizabeth Hospital SystemHepatitis B surface antigenon 03-02-2023 Hepatitis B Surface AntigenNegativeSt. Elizabeth Hospital SystemNo Panel Informationon 80-27-1622EfbZrfoqu Health SystemRubella IGG immune statuson 81-74-7160Ohzuoip immune IgG5.50ProMedina Hospital SystemSyphilis Total(Unknown Syphilis Status)on 15-51-6667PchoyujxHks-ReactiveProMedina Hospital SystemNo Panel Informationon 97-01-8695JyqLbewuz Health SystemTSHon 89-86-9797Jpujore Stimulating (3Rd Generation) Hormone/ Tsh1.055[facility] SystemType and screenon 03-01-2023 Abo/Rh(D)PositiveProMedina Hospital SystemNo Panel Informationon 02-17-2023 [facility] SystemUS OB TRANSVAGINALon 39-26-0428[place]vk[place] [address] Ultrasound Report Signed Patient: DARRIUS KRAMER MR#: [id number] : 1995 Acct:[id number] Age/Sex: 27 / F ADM Date: 02/17/23 Loc: US Attending Dr: Alvarado Perry D.O. Ordering Physician: Alvarado Perry D.O. Date of Service: 02/17/23 Procedure(s): US OB transvaginal Accession Number(s): [id number] cc: Alvarado Perry D.O.; Physician,Non-Staff Gertrudis The [address] [address] Patient Name: DARRIUS KRAMER MRN: [facility]:[id number] date: 1995 Sex: F Assigned Patient Location: US Current Patient Location: US Accession/Order Number: [id number] Exam Date: 02/17/2023 13:05 Report Date: 02/17/2023 15:37 At the request of: ALVARADO PERRY Procedure: US OB transvaginal EXAMINATION: US [...] Single live intrauterine . Electronically authenticated by: CR MORENO Date: 02/17/2023 15:37 Dictated By: Cr Moreno M.D. Signed By: 02/17/23 1539 DD/ 153 TD/TT: Program Analyst:LAURIadiologcourtney, Radiologist, - 02/17/[address] [address] Ultrasound Report Signed Patient: DARRIUS KRAMER MR#: [id number] : 1995 Acct:[id number] Age/Sex: 27 / F ADM Date: 02/17/23 Loc: US Attending Dr: Alvarado Perry D.O. Ordering Physician: Alvarado Perry D.O. Date of Service: 02/17/23 Procedure(s): US OB transvaginal Accession Number(s): [id number] cc: Alvarado Perry D.O.; Physician,Non-Staff Gertrudis [place] [address] Patient Name: DARRIUS KARMER MRN: [facility]:[id number] date: 1995 Sex: F Assigned Patient Location: US Current Patient Location: US Accession/Order Number: [id number] Exam Date: 02/17/2023 13:05 Report Date: 02/17/2023 15:37 At the request of: ALVARADO PERRY Procedure: US OB transvaginal EXAMINATION: US [...] Single live intrauterine . Electronically authenticated by: CR MORENO Date: 02/17/2023 15:37 Dictated By: Cr Moreno M.D. Signed By: 02/17/23 1539 DD/ 1537 TD/TT: Program Analyst: UMBERTO HealthcareRadiology Study observation (narrative)NOMMadeleine HealthcareUltrasound officeon 33-74-9443KJB SCANNED REPORTMANUALLY TRANSCRIBED RESULTSIR INJ ARTHROGRAM HIP LEFTon 55-65-4334WD INJ ARTHROGRAM HIP LEFTEXAMINATION: FLUOROSCOPIC GUIDED LEFT HIP ARTHROGRAM, 02/12/2022 8:45 am COMPARISON: None. HISTORY: ORDERING SYSTEM PROVIDED HISTORY: Tear of left acetabular labrum, initial encounter TECHNOLOGIST PROVIDED HISTORY: Is the patient ?->No FLUOROSCOPY DOSE AND TYPE OR TIME AND EXPOSURES: 54 seconds; D AP 83 cGy cm2 PROCEDURE: ABSTRACT CLERK: Gaduencio Chávez MD Informed consent was obtained and [...] Signed by: Gaudencio Chávez MD 02/12/22 Final resultNormalMercy Parkwood HospitalIR INJ ARTHROGRAM HIP LEFTon 74-65-3648Ichawvepzw fluoroscopic-guided left hip arthrogram. Patient was transferred to MRI for further imaging. [facility] RIS CONSOLIDATEDEXAMINATION: FLUOROSCOPIC GUIDED LEFT HIP ARTHROGRAM, 02/12/2022 8:45 am COMPARISON: None. HISTORY: ORDERING SYSTEM PROVIDED HISTORY: Tear of left acetabular labrum, initial encounter TECHNOLOGIST PROVIDED HISTORY: Is the patient ?->No FLUOROSCOPY DOSE AND TYPE OR TIME AND EXPOSURES: 54 seconds; D AP 83 cGy cm2 PROCEDURE: ABSTRACT CLERK: Gaudencio Chávez MD Informed consent was obtained [...] is sent for subsequent MRI. EBL: None [facility] Gaudencio Hidalgo MD - 02/12/2022 EXAMINATION: FLUOROSCOPIC GUIDED LEFT HIP ARTHROGRAM, 02/12/2022 8:45 am COMPARISON: None. HISTORY: ORDERING SYSTEM PROVIDED HISTORY: Tear of left acetabular labrum, initial encounter TECHNOLOGIST PROVIDED HISTORY: Is the patient ?->No FLUOROSCOPY DOSE AND TYPE OR TIME AND EXPOSURES: 54 seconds; D AP 83 cGy cm2 PROCEDURE: ABSTRACT CLERK: Gaudencio Chávez MD Informed consent was obtained [...] was transferred to MRI for further imaging. [facility] Phone: radiology Study observation (narrative)[facility] Phone: IR INJ ARTHROGRAM HIP LEFTOrdered By: Gaudencio Chávez on 12-33-6281HXE [employer] Phone: MRI HIP LEFT W CONTRASTon 41-51-4314XSJ HIP LEFT W CONTRASTEXAMINATION: MRI OF THE LEFT HIP WITH CONTRAST, [...] Signed by: Anthony Villanueva MD 02/12/22 Final resultNormalMercy Adena Pike Medical CenterARS-CoV-2 (COVID-19) RNA ANNABELLE+probe Ql (Resp)on 04-25-9561KURB-CoV-2 (COVID-19) RNA ANNABELLE+probe Ql (Unsp spec)Positive Answer.To Other pap ACOG PANEL 2: 21 to 29on 08-17-2021..NormalThe [facility]ostoria Community HospitalComment on above:Performed By: #### [id number] #### [facility] [address] [place] [address] [address] Cesar Mullins Gdln ACOG Umdhrzv86-40GvwzkoKbkBlanchard Valley Health System Bluffton HospitalComment on above:Performed By: #### [id number] #### [facility] [address] [place], [place] [address] Dr. Cesar YoungDIAGNOSIS:CommentNoTuscarawas Hospitalment on above: Result Comment: NEGATIVE FOR INTRAEPITHELIAL LESION OR MALIGNANCY.Performed By: #### [id number] #### [place] [address] Dr[address] Cesar YoungMethodology:CommentPike Community Hospital on above: Result Comment: This liquid based ThinPrep(R) pap test was screened with the use of an image guided system.Performed By: #### [id number] #### [place] [address] Dr[address] Cesar YoungNote:CommentPike Community Hospital on above:Result Comment: The Pap smear is a screening test designed to aid in the detection of premalignant and malignant conditions of the uterine cervix. It is not a diagnostic procedure and should not be used as the sole means of detecting cervical cancer. Both false-positive and false-negative reports do occur. .Performed By: #### [id number] #### [place] [address] Dr. Cesar YoungPerformed by:CommentPike Community Hospital on above: Result Comment: Merly Taveras, After School Tutor (ASCP)Performed By: #### [id number] #### [place] [address] Dr. Cesar YoungReflex Criteria:CommentPike Community Hospital on above:Result Comment: The HPV DNA reflex criteria were not met with this specimen result therefore, no HPV testing was performed. .Performed By: #### [id number] #### [place] [address] Dr. Cesar YoungSpecimen adequacy:CommentPike Community Hospital on above:Result Comment: Satisfactory for evaluation. Endocervical and/or squamous metaplastic cells (endocervical component) are present.Performed By: #### [id number] #### [place] [address] Dr. Cesar YoungXR hand LT min 3V*on 87-29-5353NA hand LT min 3V*[facility] [place] Other XR hand LT min 3V*[facility] [employer] Other XR hand LT min 3V*[facility] [place] Other XR hand LT min 3V*SNEHAL Nicolas [address]IrzvcProvidence Sacred Heart Medical Center [place] Other XR hand LT min 3V*XRay ReportProvidence Sacred Heart Medical Center [place] Other XR hand LT min 3V*SignedProvidence Sacred Heart Medical Center [place] Other XR hand LT min 3V*Patient: Darrius Chen MR#: [id number] [employer] Other XR hand LT min 3V*[facility] [employer] Other XR hand LT min 3V*: 1995 Acct:[id number] [employer] Other XR hand LT min 3V*Age/Sex: 26 / F ADM Date: 08/17/21 [facility] [place] Other XR hand LT min 3V*Loc: XDUCLY Room: Type: [facility] [place] Other XR hand LT min 3V*Attending Dr: Julieth HERNANDEZ [facility] [place] Other XR hand LT min 3V*Copies to: DAVID Salmeron [place] [employer] Other XR hand LT min 3V*Ordering Provider: BETO Salmeronjefferson memorial hospital [employer] Other XR hand LT min 3V*Date of Service: 08/17/21[place] [employer] Other XR hand LT min 3V* XR/XR hand LT min 3V*: Pain of left thumbL[place] Creek [employer] Other XR hand LT min 3V*LEFT HAND - 4 viewsLake Creek [employer] Other XR hand LT min 3V*CLINICAL DATA: Patient injured left hand yesterday and has bruising, pain and swelling over [facility] [employer] Other XR hand LT min 3V*metacarpal phalangeal joint of the thumb and at the distal first metacarpalNoheartland behavioral health services [employer] Other XR hand LT min 3V*COMPARISON: None[place] [employer] Other XR hand LT min 3V*AP, lateral and oblique views were obtained along with a supplemental lateral view at the thumb.Answer.To Other XR hand LT min 3V*There is no evidence of fracture or dislocation. There are no significant soft tissueNoBelmont Behavioral Hospital [place] Other XR hand LT min 3V*abnormalities.Answer.To Other XR hand LT min 3V* XR/XR hand LT min 3V*[place] [employer] Other XR hand LT min 3V*IMPRESSION:Answer.To Other XR hand LT min 3V*NO ACUTE BONY INJURY.Answer.To Other XR hand LT min 3V*Impression dictated by: Ailin Borrego M.D.08/17/2021 2:53 [facility] [employer] Other XR hand LT min 3V*Dictation Location: PFTRZ-GI-78Jhtca [employer] Other XR hand LT min 3V*Transcribed By: GONZALO 08/17/21 [facility] Answer.To Other XR hand LT min 3V*Dictated By: Ailin Borrego MD 08/17/[address] [place] [address] [employer] Other XR hand LT min 3V*Signed By:Answer.To Other XR hand LT min 3V*08/17/21 [facility] HospitalNoheartland behavioral health services [employer] Other PREG HCG QUALon 89-62-6235CEIZAPYTR, QUALNegative NormalNEGATIVEThe [facility]ostoria Community HospitalComment on above:Performed By: #### PREG #### [facility] [address] [place] [address] [address] [address] Cesar Heathvid-19 PCR (CVDTB)on 17-38-3631SIYM-CoV-2 (COVID-19) RNA ANNABELLE+probe Ql (Unsp spec)Not detectedNormalNOT DETECTEDWooster Community Hospital Comment on above:Result Comment: This test is not yet approved or cleared by the [place] FDA. When there are no FDA-approved or cleared tests available, and other criteria are met, FDA can make tests available under an emergency access mechanism called an Emergency Use Authorization (EUA). The EUA for this test is supported by the [employer]ner of Health and Human Service's (HHS's) declaration that circumstances exist to justify the emergency use of in vitro diagnostics for the detection and/or diagnosis of the virus that causes COVID- 19. This EUA will remain in effect (meaning [...] of clinical signs and symptoms consistent with SARS-CoV-2.Performed By: #### CVDTB #### [facility] [address] [place], [place] [address] Dr. Cesar Farrell-CoV-2on 18-04-5539GYWK-CoV-2 (COVID-19) RNA ANNABELLE+probe Ql (Unsp spec)NormalMerHoag Memorial Hospital PresbyterianComment on above:Performed By: #### COVID #### [facility] HospitalAphi[facility] [address] [place], [place] [id number] Fur Remodeler: VIANEY Hinkle-CoV-2 (COVID-19) RNA ANNABELLE+probe Ql (Unsp spec)DetectedAbnormalNOTDETMercy Kaiser Manteca Medical CenterComment on above: Result Comment: The specimen is POSITIVE for SARS-Cov-2, the novel coronavirus associated with COVID-19. Júnior SARS-CoV-2 for use on the Júnior [employer] is a real-time RT-PCR test intended [...] this assay. Fact sheet for Healthcare Providers: https://www.fda.gov/media/298853/download Fact sheet for Patients: https://www.fda.gov/media/388358/download METHODOLOGY: RT-PCR Results reported to the appropriate Health DepartmentPerformed By: #### COVID #### [employer] [address] [place] [address] Fur Remodeler: VIANEY Hinkle-CoV-2on 86-39-9301YPVD-CoV-2 (COVID-19) RNA ANNABELLE+probe Ql (Unsp spec)NOT REPORTEDNoSt. Charles Hospital Comment on above:Performed By: #### COVID #### [employer] [address] [place], [place] [id number] Fur Remodeler: DELIO Hinkle Auto Differentialon 60-69-4275Lcevmdnqt (Bld) [#/Vol]0.10 10*3/[facility] [employer] Work Phone: basophils/100 WBC (Bld)1 %0 - 2 %[employer] Work Phone: differential TypeNOT REPORTEDMercy Health Urbana Hospitalmymxlog Work Phone: Eosinophils (Bld) [#/Vol]0.20 10*3/[employer] Phone: Eosinophils/100 WBC (Bld)2 %0 - 4 %[employer] Phone: Erythrocyte distribution width (RBC) [Ratio]13.9 %11.5 - 14.9 %[employer] Phone: Hematocrit (Bld) [Volume fraction]43.1 %36 - 46 %[employer] Phone: Hemoglobin (Bld) [Mass/Vol]14.2 g/dL12 - 16 g/dLE[employer] Phone: Lymphocytes (Bld) [#/Vol]2.10 10*3/[employer] Phone: [phone]/100 WBC (Bld)25 %24 - 44 %[employer] Phone: [phone] (RBC) [Entitic mass]28.7 pg26 - 34 pgE[employer] Phone: [phone] (RBC) [Mass/Vol]33.0 g/dL31 - 37 g/dLMercy Health Urbana HospitalHygeia Personal Care Products Phone: [phone] (RBC) [Entitic vol]87.2 fL80 - 100 [employer] Phone: Monocytes (Bld) [#/Vol]0.60 10*3/[employer] Phone: Monocytes/100 WBC (Bld)7 %1 - 7 %[employer] Phone: Platelet mean volume (Bld) [Entitic vol]7.7 fL6 - 12 [employer] Phone: Platelets (Bld) [#/Vol]359 10*3/[employer] Phone: [phone] (Bld) [#/Vol]NOT REPORTEDMermymxlog Work Phone: RBC (Bld) [#/Vol]4.94 10*6/uL4 - 5.2 m/uLMercy Health Urbana Hospitalmymxlog Work Phone: rBC morphology finding Nom (Bld)NOT REPORTEDMermymxlog Work Phone: Cegmented neutrophils/100 WBC (Bld)65 %36 - 66 %[employer] Work Phone: segs Absolute5.40M[employer] Work Phone: WBC (Bld) [#/Vol]NOT REPORTEDper 100 WBCMercy Health Urbana Hospitalmymxlog Work Phone: WBC (Bld) [#/Vol]8.4 10*3/uLMercy Health Urbana Hospitalmymxlog Work Phone: WBC MorphologyNOT REPORTEDMercy Health Urbana Hospitalmymxlog Work Phone: comprehensive Metabolic Panelon 75-95-3317Jitprys [Mass/Vol]3.9 g/dL3.5 - 5.2 g/dLMercy Health Urbana Hospitalmymxlog Work Phone: albumin/Globulin [Mass ratio]NOT REPORTEDMercy Health Urbana Hospitalmymxlog Work Phone: aLP [Catalytic activity/Vol]59 U/L35 - 104 U/LMercy [employer] Work Phone: aLT [Catalytic activity/Vol]19 U/L5 - 33 U/LMercy [employer] Work Phone: anion gap [Moles/Vol]10 mmol/L9 - 17 mmol/LMercy [employer] Work Phone: aST [Catalytic activity/Vol]15 U/L<32Merm[employer] Work Phone: bilirubin Ql (U)<0.15Low0.3 - 1.2 mg/dLMercy Health Urbana Hospitalmymxlog Work Phone: bun/Cre RatioNOT REPORTEDMercy Health Urbana Hospitalmymxlog Work Phone: calcium [Mass/Vol]9.2 mg/dL8.6 - 10.4 mg/dLMercy Health Urbana HospitalHygeia Personal Care Products Phone: chloride [Moles/Vol]104 mmol/L98 - 107 mmol/LMuniversity hospitals cleveland medical centery [employer] Work Phone: cO2 [Moles/Vol]25 mmol/L20 - 31 mmol/LMercy [employer] Work Phone: creatinine [Mass/Vol]0.68 mg/dL0.5 - 0.9 mg/dLMercy Health Urbana HospitalHygeia Personal Care Products Phone: GFR >60>60 mL/minMercy Health Urbana HospitalHygeia Personal Care Products Phone: GFR Non->60>60 mL/minMercy Health Urbana HospitalHygeia Personal Care Products Phone: GFR/1.73 sq M predicted among non-blacks MDRD (S/P/Bld) [Vol rate/Area][facility] Children'S HospitalYhat Phone: comment on above:Average GFR for 20-29 years old: 116 mL/min/1.73sq m Chronic Kidney Disease: <60 mL/min/1.73sq m Kidney failure: <15 mL/min/1.73sq m eGFR calculated using average adult body mass. Additional eGFR calculator available at: http://www.ebridge/multiple_crcl_2012.htm GFR/1.73 sq M predicted among non-blacks MDRD (S/P/Bld) [Vol rate/Area]NOT REPORTEDMercy Health Urbana HospitalHygeia Personal Care Products Phone: Glucose [Mass/Vol]135 mg/aNGqsv44 - 99 mg/dLMercy Health Urbana HospitalHygeia Personal Care Products Phone: Interpretation and review of laboratory results AbnormalMercy Health Urbana HospitalHygeia Personal Care Products Phone: potassium [Moles/Vol]3.7 mmol/L3.7 - 5.3 mmol/LMuniversity hospitals cleveland medical centery [employer] Phone: protein [Mass/Vol]7.1 g/dL6.4 - 8.3 g/dLMercy Health Urbana HospitalHygeia Personal Care Products Phone: sodium [Moles/Vol]139 mmol/L135 - 144 mmol/LMercy [employer] Phone: Urea nitrogen [Mass/Vol]11 mg/dL6 - 20 mg/dLMercy Health Urbana HospitalHygeia Personal Care Products Phone: Otheron 24-46-8384Nqgoxaax granulocytes (Bld) [#/Vol] NOT REPORTED0 %[employer] Phone: US GALLBLADDER RUQon 70-43-0956Gngcflqqkrtr right upper quadrant ultrasound.[employer] Phone: eXAMINATION: RIGHT UPPER QUADRANT ULTRASOUND 04/24/2020 8:04 am [...] The right kidney is grossly unremarkable without evidenceof hydronephrosis. PANCREAS: Visualized portions of the pancreas are unremarkable. OTHER: No evidence of right upper quadrant ascites.[employer] Phone: edi, pn Incoming Radiant Results From [employer] - 04/24/2020 8:18 AM EST EXAMINATION: RIGHT [...] ascites. IMPRESSION: Unremarkable right upper quadrant ultrasound. [employer] Phone: Vital Signs Date TimeVital SignValuePerforming MszzqxyxtIwsgcwbv55-94-5046 15:54-0400Body mass index (BMI) [Ratio]38.28 kg/a3EgapjlmtLaurel Jacobson CELL ATTENDANT Work Phone: [phone] [place], [place] [address]Zcwonzxpho90-21-5284 15:54-0400Body .91 kgKrjohn Kavon CELL ATTENDANT Work Phone: [phone] [place], [place] [address]Lyixznlqjd41-88-8597 15:54-0400Diastolic blood mm[Hg]Laurel Wongerly CELL ATTENDANT Work Phone: [phone] [place], [place] [address]Cdnkdveqgv72-84-1165 15:54-0400Systolic blood imflnyqh669 mm[Hg]Laurel Wongerly CELL ATTENDANT Work Phone: [phone] [place], [place] [address]Gjsqgiofqp60-91-9857 11:15-0500Body mass index (BMI) [Ratio]43.55 kg/i2Wngzw Vicky DO Work Phone: [phone] [place], [place] [address]Iygjozueid39-58-5855 11:15-0500Body zsuaar200.15 kgCorey Vicky DO Work Phone: [phone] [place], [place] [address]Bwawhnvvjs00-11-2649 11:15-0500Diastolic blood mm[Hg]Alvarado Vicky DO Work Phone: [phone] [place], [place] [address]Kajhrvytau80-71-8287 11:15-0500Systolic blood mm[Hg]Alvarado Vicky DO Work Phone: [phone] [place], [place] [address]322908-22-2024 11:51-0400Body mass index (BMI) [Ratio]43.55 kg/x2Ncudw Vicky DO Work Phone: [phone] [place], [place] [address]Kjaybusemv65-47-4638 11:51-0400Body .15 kgCorey Vicky DO Work Phone: [phone] [place], [place] [address]Fgepeogduo59-53-7755 11:51-0400Diastolic blood dryfmhdh57 mm[Hg]Alvarado Vicky DO Work Phone: [phone] [place], [place] [address]Qtmazrxrye50-76-2525 11:51-0400Systolic blood ftkbatbt488 mm[Hg]Alvarado Costao DO Work Phone: [facility] HospitalEbepxfxste86-86-7973 08:29-0400Body mass index (BMI) [Ratio]47.65 kg/m2Perry Ybarra MD Work Phone: [phone])[address] [place], [place] 5776606-12-2024 08:29-0400Body uwknwo896.68 kgPerry Ybarra MD Work Phone: [phone])[address] [place], [place] 5776606-12-2024 08:29-0400Diastolic blood eohwixfk11 mm[Hg]Perry Ybarra MD Work Phone: 1(419)[address] [place], [place] 5776606-12-2024 08:29-0400Heart rate 83 /June Ybarra MD Work Phone: [phone])[address] [place], [place] 5776606-12-2024 08:29-0400Systolic blood xamugked460 mm[Hg]Perry Ybarra MD Work Phone: [phone])[address] [place], [place] 5776605-13-2024 14:01-0400Body mass index (BMI) [Ratio]47.07 kg/n0EhcwmaexLeo Johnson MD Work Phone: 1(419)[address] [place], [place] 5776605-13-2024 14:01-0400Body zxysts846.32 kgLeo Johnson MD Work Phone: [phone])[address] [place], [place] 5776605-13-2024 14:01-0400Diastolic blood vavieghv40 mm[Hg]Leo Johnson MD Work Phone: 1(338)[address] [place], [place] 5776605-13-2024 14:01-0400Systolic blood nogtztsh478 mm[Hg]Leo Johnson MD Work Phone: 1(998)[address] [place], [place] 5776602-15-2024 10:54-0500Body mass index (BMI) [Ratio]44.14 kg/f7Ylzhu Vicky DO Work Phone: [facility] HospitalNrnhtxcrjd97-37-7696 10:54-0500Body dgmcfy201.51 kgCorey Vicky DO Work Phone: [facility] HospitalFvwfgbzmdy99-80-1779 10:54-0500Diastolic blood opafpequ86 mm[Hg]Alvarado Vicky DO Work Phone: noCrittenton Behavioral HealthGsznygilfr53-01-4143 10:54-0500Systolic blood dfwztzuc134 mm[Hg]Alvarado Vicky DO Work Phone: noCrittenton Behavioral HealthPtaaiiykes70-88-9029 10:30-0500Body .4 cmPamelsumeet Winkler Other [employer] Other 02-13-2023 10:30-0500Body mass index (BMI) [Ratio] 41.59 kg/f2Gxhckj Cathi Other Answer.To Other 02-13-2023 10:30-0500Body vvjgtefedoc67.5 [degF]Julieth Winkler Other Answer.To Other 02-13-2023 10:30-0500Body qsjtuw67.62 kgPaemiliano Cathi Other Answer.To Other 02-13-2023 10:30-0500Diastolic blood adekmjwa94 mm[Hg] Julieth Winkler Other Answer.To Other 02-13-2023 10:30-0500Respiratory rate18 /minPaemiliano Winkler Other Answer.To Other 02-13-2023 10:30-9231OaR9% (BldA) [Mass fraction]98 % Julieth Winkler Other Answer.To Other 02-13-2023 10:30-0500Systolic blood cbnimxxb426 mm[Hg] Julieth Winkler Other Answer.To Other 10-03-2022 17:00-0400Body .4 cmSneyda Mara Other [employer] Other 10-03-2022 17:00-0400Body mass index (BMI) [Ratio] 39.06 kg/g9Zgjxvzwsn Mara Other [employer] Other 10-03-2022 17:00-0400Body rbqtboggqol90.6 [degF] Jammie Mara Other [employer] Other 10-03-2022 17:00-0400Body iwbbzz33.72 kgStrichard Mara Other [employer] Other 10-03-2022 17:00-0400Diastolic blood eyqtxzwl94 mm[Hg] Jammie Mara Other [employer] Other 10-03-2022 17:00-0400Respiratory rate18 /minSsanjaymelitonakbar Mara Other [employer] Other 10-03-2022 17:00-5305HvK3% (BldA) [Mass fraction]99 % Jammiefeliberto Terry Other [employer] Other 10-03-2022 17:00-0400Systolic blood mm[Hg] Jammie Mara Other [employer] Other 09-14-2022 10:30-0400Body .4 Ruddy Winkler Other [employer] Other 09-14-2022 10:30-0400Body mass index (BMI) [Ratio]37.1 kg/z3Ssjvvp Cathi Other Answer.To Other 09-14-2022 10:30-0400Body kmyvuxumwrn03.1 [degF]Julieth Agarwalmond Other Answer.To Other 09-14-2022 10:30-0400Body xfpqah67.18 kgPaemiliano Cathi Other Answer.To Other 09-14-2022 10:30-0400Respiratory rate18 /minJulieth Winkler Other Answer.To Other 09-14-2022 10:30-8870QaZ4% (BldA) [Mass fraction]99 % Julieth Agarwalmond Other Answer.To Other 06-20-2022 14:55-0400Body yceumh658.4 cmPamelsumeet Winkler Other Answer.To Other 06-20-2022 14:55-0400Body mass index (BMI) [Ratio] 39.84 kg/i5Zxbxwz Cathi Other Answer.To Other 06-20-2022 14:55-0400Body wjhjhegntdg77.8 [degF]Julieth Cathi Other Answer.To Other 06-20-2022 14:55-0400Body lvrzes45.53 kgPaemiliano Cathi Other Answer.To Other 06-20-2022 14:55-0400Diastolic blood wiyelxca72 mm[Hg] Julieth Winkler Other [facility] [employer] Other 06-20-2022 14:55-0400Respiratory rate18 /minJulieth Winkler Other [facility] [employer] Other 06-20-2022 14:55-2823TbZ2% (BldA) [Mass fraction]99 % Julieth Winkler Other [facility] [employer] Other 06-20-2022 14:55-0400Systolic blood fxuefifh096 mm[Hg] Julieth Winkler Other [facility] [employer] Other Encounters Encounter DateEncounter TypeCare ProviderFacilityStart: 12-04-2024 End: 95-72-1068Jsfxifmsf Result EncounterLaurel Jacobson 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 ATTENDANT Work Phone: noms External Department UnsolicitedStart: 12-04-2024 End: 77-46-3391Eimghgftf Result EncounterLaurel Jacobson CELL ATTENDANT Work Phone: noms External Department UnsolicitedStart: 11-22-2024 End: 33-09-7885Qwcpyp outpatient visit 15 minutesLaurel Jacobson CELL ATTENDANT Work Phone: noms [place] [facility] OBGYNComment on above:Breast pain; Mass of right breast, unspecified quadrantStart: 11-22-2024 End: 86-17-5104ffdeckcdwyGJFGYNBV EBERLYNot AvailableStart: 11-22-2024 End: 32-22-6934Gcczjd flowsheetLaurel Whiteheadly CELL ATTENDANT Work Phone: noms [facility] OBGYNStart: 11-22-2024 End: 15-71-5605Jkywcv flowsheetLaurel Kavon CELL ATTENDANT Work Phone: noms [facility] OBGYNStart: 88-92-9682hfqhwsphqeMJJD E PIERCEProMedica Hinsdale HospitalStart: 60-02-0556gxrdnohkouHHAH E BENNETT [facility] HospitalStart: 10-07-2024 End: 64-25-8540Uhqfgeurg department patient visitJO E DONALDGrant Hospital HospitalStart: 04-17-2024 End: 21-04-3643Sskxtm flowsheetCorey Vicky DO Work Phone: noms BCP OBStart: 04-17-2024 End: 64-17-1326Sqmaay flowsheetCorey Vicky DO Work Phone: noms BCP OBStart: 04-17-2024 End: 08-52-7996Xyrjhcjsz Result EncounterCorey Vicky DO Work Phone: [facility] External Department UnsolicitedStart: 04-17-2024 End: 65-78-2979Zpfixbt encounter procedureCorey Vicky DO Work Phone: N[facility] HealthcareStart: 04-17-2024 End: 22-92-7718Dwmmnspf preventive med est patient 18-39 yrsCorey Vicky DO Work Phone: noms BCP OBComment on above:Well woman exam with routine gynecological examStart: 04-17-2024 End: 84-64-0516vyzuxxnkasKZFXV FAZIONot AvailableStart: 04-10-2024 End: 44-22-9523Ximkozjiw department patient visitJOHN E DONALDCenterville HospitalStart: 04-10-2024 End: 84-19-0142Stjdsdxri department patient visitJOHN E DONALDGrant Hospital HospitalStart: 01-28-2024 End: 36-73-3232Dyegtivfl department patient visitJOHN E [facility] HospitalStart: 10-20-2023 End: 45-39-0700Tdphdxrqyr care visitCorey Vicky DO Work Phone: noms BCP OBComment on above:6 weeks follow-up; Encounter for initial prescription of vaginal ring hormonal contraceptiveStart: 09-10-2023 End: 96-27-5039kkyzvtbxxqVA Mirna Bennett Work Phone: [facility] Work Phone: Start: 09-10-2023 End: 91-55-1480Nsvnftwm ReferredMD Mirna Bennett Work Phone: [facility]-LAB Path Spec Brianna HospStart: 09-07-2023 End: 92-91-6210Dggmzoshq Result EncounterCorey Vicky DO Work Phone: noms External Department UnsolicitedStart: 09-07-2023 End: 96-87-9335Bvtrgixwh Result EncounterCorey Vicky DO Work Phone: noms External Department UnsolicitedStart: 08-25-2023 End: 22-24-2274Vsvelvmgs Result EncounterCorey Vicky DO Work Phone: noms External Department UnsolicitedStart: 08-25-2023 End: 10-36-8096Fadvmxrin Result EncounterCorey Vicky DO Work Phone: noms External Department UnsolicitedStart: 08-17-2023 End: 53-90-7638Nbbyitunr Result EncounterCorey Vicky DO Work Phone: noms External Department UnsolicitedStart: 08-17-2023 End: 75-53-6361Orlhhkfzk Result EncounterCorey Vicky DO Work Phone: noms External Department UnsolicitedStart: 08-10-2023 End: 33-22-6045Agyuyj outpatient visit 25 minutesIra Tate RIVERA Work Phone: Maternal Medicine PersburgComment on above:33 weeks gestation of (Primary Dx); Club foot of fetus affecting antepartum care of mother, single or unspecified fetus; Obesity affecting in third trimester, unspecified obesity type; Marginal insertion of umbilical cord affecting management of mother; Hypertension affecting in third trimesterStart: 08-10-2023 End: 95-61-5267wvmlphtxzpRODSBayley Seton Hospital PPGStart: 08-04-2023 End: 73-85-0007Xjwrrqzvn Result EncounterCorey Vicky DO Work Phone: noms External Department UnsolicitedStart: 08-04-2023 End: 13-46-2957Cermscvpw Result EncounterCorey Vicky DO Work Phone: noms External Department UnsolicitedStart: 07-12-2023 End: 71-86-4842Hjhodkxem encounterSally Fey RNMaternal- Medicine at [facility] Hospitaltart: 07-11-2023 End: 54-31-2081Ctxdhj consultation new/estab patient 60 Jessi Johnson MD Work Phone: Maternal Medicine [place]landComment on above:29 weeks gestation of (Primary Dx); Club foot of fetus affecting antepartum care of mother, single or unspecified fetus; Obesity affecting in third trimester, unspecified obesity type; Marginal insertion of umbilical cord affecting management of mother; Enlarged thyroid gland; Hypertension, unspecified typeStart: 07-11-2023 End: 61-66-5268yhsfzkxrvyIWTWArbuckle Memorial Hospital – [facility] PPGStart: 06-17-2023 End: 10-49-1090Btyzh abstractIrasema Johnson MD Work Phone: [facility]aternal Medicine [place]Start: 06-14-2023 End: 72-88-5205Hcpbgzgdx Result EncounterCorey Vicky DO Work Phone: noms External Department UnsolicitedStart: 06-14-2023 End: 69-94-5238Bwyfdvghz Result EncounterCorey Vicky DO Work Phone: noms External Department UnsolicitedStart: 05-26-2023 End: 93-02-3951Rugrfjlqw Result EncounterCorey Vicky DO Work Phone: noms External Department UnsolicitedStart: 05-26-2023 End: 73-52-8557Hklubguir Result EncounterCorey Vicky DO Work Phone: noms External Department UnsolicitedStart: 05-12-2023 End: 26-05-1424Kyuuuyall Result EncounterCorey Vicky DO Work Phone: noms External Department UnsolicitedStart: 05-12-2023 End: 74-61-0859Zlnzmqeno Result EncounterCorey Vicky DO Work Phone: noms External Department UnsolicitedStart: 04-14-2023 End: 87-69-4009Ucfngip encounter procedureCorey Vicky DO Work Phone: noms HealthcareStart: 04-14-2023 End: 75-16-7643Zegvbbob preventive med est patient 18-39 yrsCorey Vicky DO Work Phone: noms BCP OBComment on above:Well woman exam with routine gynecological exam; Exposure to STD; Encounter for anatomic survey; Need for maternal serum alpha-protein (MSAFP) screening; Second trimester pregnancyStart: 02-17-2023 End: 10-22-2245Eezwwdyad Result EncounterCorey Vicky DO Work Phone: noms External Department UnsolicitedStart: 02-17-2023 End: 62-22-9945Alrktbott Result EncounterCorey Vicky DO Work Phone: noms External Department UnsolicitedStart: 04-12-2022 End: 12-43-9358mwpmkseghkMfjoii Dymond Other [facility] [employer] Other Start: 55-54-1959Qnkzuz outpatient visit 15 minutes Julieth VelazquezG Urgent Care ClydeStart: 02-12-2022 End: 44-99-5188lepipshjtaPRAFDOOAshtabula County Medical Centertart: 02-12-2022 End: 33-29-0682Yuangklvyj hospital visit by physicianStc Ir Nurse [address] [place] [address] Special ProceduresComment on above:Tear of left acetabular labrum, initial encounterStart: 11-30-2021 End: 94-16-9966ahizhbqjmbElzrnzszr Mara Other [employer] Other Start: 26-66-1143Fzkltv outpatient visit 15 minutes Jammie PhelpsjohnFPG [facility] Care ClydeStart: 11-11-2021 End: 68-53-7173rsumcfhwdvXdfkni Cathi Other [employer] Other Start: 76-31-2775Jnmodr outpatient visit 15 minutes Julieth DymondFPG [facility] Care ClydeStart: 08-17-2021 End: 08-63-5244gidplaxvzjRbcwci Cathi Other [employer] Other Start: 39-02-9257Hxoxeh outpatient visit 15 minutes Julieth DymondFPG [facility] Care ClydeStart: 08-12-2021 End: 87-61-3792xgupiogkiePV ALVARADO FAZIOFacility:T9Eubzf: 42-43-7663Toxtplwlw for preprocedural laboratory examinationMercer County Community Hospitaltart: 06-04-2021 End: 38-09-4374vqixuykgijKISBKE SAMSAFacility:M9Hthrc: 06-02-2021 End: 77-17-3341qtkicemszyCIJGPX SAMSAFacility:F4Xxhjb: 06-02-2021 End: 00-60-1170Krulfhfnp for preprocedural laboratory examinationATASCADERO STATE H[facility] Facility:I7Jiomw: 07-01-2020 End: 21-85-5720Amvgyia encounter procedurePHYSICIAN NO FAMILY-[facility] Main CampusStart: 06-27-2020 End: 20-22-0962Okaumdx encounter procedurePHYSICIAN NO FAMILY-XRay [facility] Care ClydeStart: 04-24-2020 End: 46-30-7197Mitkozcpwi hospital visit by [facility] Comment on above:RUQ painStart: 04-24-2020 End: 56-65-5898Tbhklevrub hospital visit by [facility] [address] UltrasoundComment on above:RUQ painStart: 05-26-2015 End: 28-27-1165Smcpawp encounter statusStc [address] [place] [address] Procedures DateProcedureProcedure DetailPerforming ClinicianStart: 08-90-7517PH TOMOSYNTHESIS DIAGNOSTIC Nicholas Jacobson NP Work Phone: Start: 66-64-3707Rw breast uni real time with image limitedLaurel Jacobson NP Work Phone: Start: 09-36-2038RWW,APTIMA HPV,AGE GDLNCorey Vicky DO Work Phone: Start: 89-83-0642EH OB BPP W NON-STRESSCorey Vicky DO Work Phone: Start: 35-89-5357YU OB BPP W NON-STRESSCorey Vicky DO Work Phone: Start: 92-28-8901TF OB BPP W NON-STRESSCorey Vicky DO Work Phone: Start: 13-45-9997NG OB BPP W NON-STRESSCorey Vicky DO Work Phone: Start: 13-48-0461OX OFFICENot In System Ref ProvStart: 09-24-7964EE for multiple gestation limitedCorey Vicky DO Work Phone: Start: 08-07-1649IJ OFFICENot In System Ref ProvStart: 67-20-6784EF OB CERVICAL LENGTHCorey Vicky DO Work Phone: Start: 17-29-4658DU OFFICENot In System Ref ProvStart: 55-79-5550IZ OB ANATOMYCorey Vicky DO Work Phone: Start: 38-41-3921TF OB CERVICAL LENGTHCorey Vicky DO Work Phone: Start: 97-10-3067IIJDTZZME/GC BY PCR JÚNIOR SWABNot In System Ref ProvStart: 38-78-5116Jcmhc dip stick/tablet rgnt non-auto w/o micrscp Alvarado Vicky DO Work Phone: Start: 36-85-5283JOH 1&2 AB/AG SCREEN (P24 AG)Not In System Ref ProvStart: 40-28-8267Aows ia hepatitis b surface antigenNot In System Ref ProvStart: 50-20-0863Rgzjuddb test non-treponemal antibody qualNot In System Ref ProvStart: 17-02-1834Qtqbfzne screenLeo Johnson MD Work Phone: Start: 66-11-9205Hfcdd of thyroid stimulating hormone tshNot In System Ref ProvStart: 00-95-1279KKOX AND SCREENNot In System Ref Prov Start: 41-38-6126QESFUAWM GENETIC TESTNot In System Ref ProvStart: 27-25-4047UU OB TRANSVAGINALCorey Vicky DO Work Phone: Start: 77-27-1084LM OFFICENot In System Ref ProvStart: 15-57-9473ZE ARTHROGRAM HIP LEFTZachary Tadeo REEVES Work Phone: start: 33-11-9549Wupun X-ray of left tibia and left fibulaPHYSICIAN NO FAMILYStart: 58-62-5987Ithrmygcvd examination of knee PHYSICIAN NO FAMILYStart: 88-52-4344Cqegc count complete auto&auto difrntl wbc Camron B Alicea Work Phone: Start: 86-36-8033Zbcmrkohqlyxv metabolic panelJustin B Alicea Work Phone: Start: 27-90-6981Nx abdominal real time w/image limitedJustin B Alicea Work Phone: Plan of Treatment DateCare ActivityDetailAuthorStart: 04-23-2025 End: 11-34-3774Urxyvot encounter procedureNOMS BCP OBStart: 11-22-2024 End: 62-39-6934Uezpemx encounter kiauswhaw31/25/2025 3:50 PM EDT Office Visit UMBERTO HODGES [address] [place] [id number] Laurel Jacobson, JACQUI [address] [place] [address] Stephanie Reed OBGYN Comment on above:ArrivedStart: 11-22-2024 End: 65-35-4917CY Breast - bilateral ScreeningBilateral screening mammogram Imaging Routine Breast pain Mass of right breast, unspecified quadrant Expected: 11/22/2024 (Approximate), Expires: 01/22/2026[facility] Work Phone: comment on above:Expected: 11/22/2024 (Approximate), Expires: 01/22/2026Start: 11-22-2024 End: 05-22-4294CN Breast - right DiagnosticRight diagnostic mammogram Imaging Routine Breast pain Mass of right breast, unspecified quadrant Expected: 11/22/2024 (Approximate), Expires: 01/22/2026NOOR HealthcareComment on above: Expected: 11/22/2024 (Approximate), Expires: 01/22/2026Start: 53-49-8905Uyjks BMI ScreeningAdult BMI ScreeningSt. Elizabeth Hospital SystemStart: 60-75-6133Dksomnn ScreeningTobacco ScreeningSt. Elizabeth Hospital SystemStart: 55-62-0867Zpdab BMI ScreeningAdult BMI ScreeningSt. Elizabeth Hospital SystemStart: 57-66-5181Osjucen ScreeningTobacco ScreeningSt. Elizabeth Hospital SystemStart: 04-17-2024 End: 60-62-1383Zxmapjk encounter procedureNOMS BCP OBComment on above:Arrived Start: 75-97-9899Ytwzpocqf vaccinationInfluenza VaccineBucyrus Community Hospital Start: 08-10-2023 End: 26-30-1489Qrsqtpg encounter procedureMaternal Medicine [place] Start: 08-09-2023 End: 71-78-0430Lfaznzr encounter procedureMaternal Medicine [place] Start: 07-11-2023 End: 09-27-3812Dhwkqah encounter procedureMaternal Medicine [place] Start: 04-14-2023 End: 88-90-0721Yhkwp fetoprotein, maternalAlpha fetoprotein, maternal Lab Routine Need for maternal serum alpha-protein (MSAFP) screening Expected: 04/14/2023 (Approximate), Expires: 05/13/2023NOOR HealthcareComment on above: Expected: 04/14/2023 (Approximate), Expires: 05/13/2023Start: 04-14-2023 End: 12-06-8633GS for pregnancyUS OB ANATOMY SINGLE W US OB CERVICAL LENGTH Imaging Routine Encounter for anatomic survey Expected: 04/14/2023 (Approximate), Expires: 04/14/2024NOOR HealthcareComment on above:Expected: 04/14/2023 (Approximate), Expires: 04/14/2024Start: 41-05-5412Hirui BMI ScreeningAdult BMI ScreeningSt. Elizabeth Hospital SystemStart: 60-52-3737Gczddba ScreeningTobacco ScreeningAtrium Health Mountain Islandtart: 83-78-2509Ontxsykbvp MonitoringDepression MonitoringBON TRIHEALTH BETHESDA NORTH HOSPITALStart: 09-28-2021 Influenza vaccinationFlu vaccine (#1)[facility] Hospitalart: 04-22-2021 Influenza vaccinationFlu vaccine (#1)[employer] Phone: comment on above:Postponed from 10/30/2019 (Patient Refused)Start: 14-16-9583Hbvoghfntuhx 0-64 years Vaccine (1 of 1 - PPSV23) Pneumococcal 0-64 years Vaccine (1 of 1 - PPSV23)[employer] Phone: comment on above:Postponed from 2001 (Patient Refused)Start: 23-85-5343SOiI,Tdap and Td Vaccines (7 - Td or Tdap)DTaP,Tdap and Td Vaccines (7 - Td or Tdap)[facility] Islandtart: 04-07-2021 DTaP/Tdap/Td vaccine (7 - Td or Tdap)DTaP/Tdap/Td vaccine (7 - Td or Tdap)[facility] Hospitalart: 37-89-3790ADrD/Tdap/Td vaccine (7 - Td)DTaP/Tdap/Td vaccine (7 - Td)[employer] Phone: start: 66-34-3058Hvkosi scan of lower limb veinsUS venous duplex LE [facility] CtrStart: 00-06-2800Eebdroegu for malignant neoplasm of cervixBON DAVIES CAMPUSSarta [facility] SYSTEMStart: 16-38-0679Blytmcxpt C screeningHepatitis C screenNAVAL MEDICAL CENTER PORTSMOUTHStart: 01-71-8271ABL screeningHIV screenInova Loudoun Hospitalart: 63-58-8060Vnqrptiubf Screening Depression ScreeningHolzer Health Systemca Health SystemStart: 52-93-3274Mjamzxjgszjd 0-64 years Vaccine (1 - PCV)Pneumococcal 0-64 years Vaccine (1 - PCV)[facility]TSM[facility]THStart: 57-83-3068HBMPN-19 Vaccine (#1)COVID-19 Vaccine (#1)[facility] HOSPITALHauteLook [facility] SYSTEMStart: 57-74-2942Ednsninzs C screeningHepatitis C screen [employer] Phone: cHLAMYDIA TRACHOMATIS (GENITO/STI)CHLAMYDIA TRACHOMATIS (GENITO/STI) Lab Routine Exposure to STD Ordered: 04/14/2023[facility] LocalBanyaComment on above:Ordered: 4Cytology Cervical or vaginal smear or scraping studyPap Smear Pathology and Cytology Routine Well woman exam with routine gynecological exam Ordered: 04/14/2023[facility] [employer] Work Phone: comment on above:Ordered: 4Cytology Cervical or vaginal smear or scraping studyPap Smear Pathology and Cytology Routine Well woman exam with routine gynecological exam Ordered: 04/17/2024[facility] [employer] Work Phone: comment on above:Ordered: 04/17/2024 End: 51-42-6080CN INJ ARTHROGRAM HIP LEFTIR INJ ARTHROGRAM HIP LEFT Imaging Routine Tear of left acetabular labrum, initial encounter 1 Occurrences starting 02/12/2022 until 02/12/2022ON [facility] CENTERIntelliworks Phone: comment on above:1 Occurrences starting 02/12/2022 until 02/12/2022Neisseria gonorrhoeae DNA [Presence] in Unspecified specimen by ANNABELLE with probe detectionNeisseria gonorrhea DNA probe, direct Lab Routine Exposure to STD Ordered: 04/14/2023NOOR HealthcareComment on above:Ordered: 04/14/2023SURESWAB(R) ADVANCED VAGINITIS PLUS, TMASURESWAB(R) ADVANCED VAGINITIS PLUS, TMA Pathology and Cytology Routine Exposure to STD Ordered: 04/14/2023 NOMS HealthcareComment on above:Ordered: 04/14/2023 Immunizations Immunization DateImmunizationNotesCare VrnaqpeuUbfcottg49-93-4752xljvn papilloma virus vaccine, quadrivalentJoTuba City Regional Health Care Corporation [employer] Phone: [phone] toxoid, reduced diphtheria toxoid, and acellular pertussis vaccine, adsorbedJoTuba City Regional Health Care Corporation [employer] Phone: [phone]jmyh virus vaccine, unspecified formulationTenn[facility] Phone: [phone] papilloma virus vaccine, quadrivalent [facility] [employer] Phone: [phone] ACWY vaccine, unspecified formulationTennova Healthcare [place] [employer] Phone: [phone] papilloma virus vaccine, quadrivalent [facility] [employer] Phone: [phone], tetanus toxoids and acellular pertussis vaccineTennova Healthcare [place] [employer] Phone: [phone], mumps and rubella virus vaccineTennova Healthcare [facility] [employer] Phone: [phone], tetanus toxoids and acellular pertussis vaccineTennova Healthcare [place] [employer] Phone: [phone]) [phone] B vaccine, adult dosageS[address] Work Phone: [phone]) [phone] B vaccine, unspecified formulation [facility] Work Phone: [phone], unspecifiedJoT[facility] [employer] Work Phone: [phone]vqlgqk vaccine, unspecified formulation [facility] [place] [employer] Work Phone: [phone]ukcvs, tetanus toxoids and acellular pertussis vaccineJoTuba City [facility] [employer] Work Phone: [phone], unspecifiedJoTuba City Regional Health Care [facility] [employer] Work Phone: [phone], mumps and rubella virus vaccineJoTuba City [facility] [employer] Work Phone: [phone] vaccine, unspecified formulation [facility] [employer] Phone: [phone]dcepu, tetanus toxoids and acellular pertussis vaccineJoTuba City Regional Health Care [facility] [employer] Work Phone: [phone], unspecifiedMirnaTuba City Regional Health Care Corporation [employer] Work Phone: [phone] vaccine, unspecified formulation [facility] [place] [employer] Work Phone: [phone]ujsfj, tetanus toxoids and acellular pertussis vaccineTennova Healthcare [place] [employer] Phone: [phone] B vaccine, adult dosageStc 104B[address] STinser [facility] Work Phone: [phone]thhkq B vaccine, unspecified formulation [facility] [employer] Work Phone: [phone], unspecifiedJoTuba City Regional Health Care Corporation [employer] Work Phone: [phone] vaccine, unspecified formulation [facility] [employer] Phone: [phone]lpkh B vaccine, adult dosageStc 104[address] [employer] Work Phone: [phone] B vaccine, unspecified formulation [facility] Work Phone: Payers DatePayer CategoryPayerPolicy [id number]-wce [id number] Cross Blue ShieldBCBS [id number]-08-0915Hfaoegv 1.2.840.554394.1.13.693.2.7.3.391[id number] 2.0.1.500788.3.579.[id number] 2.0.1.632770.3.579.[id number] 2.0.1.740054.3.579.2.96[id number] 2.0.1.700519.3.579.2.08331-29-3252Ipjgweu32813449 2.0.1.444650.3.57[id number] 2.0.1.073134.3.579.2.4[id number] 2.0.1.630063.3.57[id number] 2.16.840.1.625767.3.579.[id number] 2.0.1.832424.3.579.2.[id number] 2.840.1.528895.3.579.2.191686-73-7594Pdyzqtq65356414 2.0.1.399681.3.579.2.373683-91-5342Pmfrkiy769721895 2.0.1.799655.3.579.2.181818-15-2886Hwwicdv057414474 2..1.890900.3.579.[id number] 2..1.110529.3.579.2.[id number] 2..1.473088.3.57[id number] 2..1.497457.3.579.2.595772-35-1435Jfshxbd7262635 2..1.193445.3.579.2.210157-66-7853AdvaxiiIOLHA3417549 1.840.185033.1.13.239.2.7.3.669992.855Zbfogyc247538467611 9q4p0u66-j43j-89r7-y199-5955xoqdvun7CqhxhesScmn [id number] 057n5970-0085-40d6-[id number] 2.0.1.762607.3.579.2.531Worker's CompensationIndustrial Self Ins Misc [id number] Social History DateTypeDetailFacilityStart: 02-28-2007 End: 70-51-3754Tckggfv smoking status NHISCurrent every day smokerBON SportStylistStart: 44-26-8897Sjhqfiz of tobacco useCigarette SmokerMercy Health Urbana HospitalHygeia Personal Care Products Phone: start: 04-22-2020 End: 74-23-1322Wxdphnbdhn smoked current (pack per day) - ReportedMercy Health Urbana HospitalHygeia Personal Care Products Phone: start: 04-22-2020 End: 25-15-0068Lezfqtd use and exposureNever usedMercy Health Urbana HospitalHygeia Personal Care Products Phone: start: 04-22-2020 End: 19-88-7142Wxdmack intakeCurrent drinker of alcohol (finding)[employer] Phone: start: 19-26-1630Kwrzgou CommentoccasionalMercy Health Urbana HospitalHygeia Personal Care Products Phone: start: 88-76-1527Rrw Assigned At BirthNot on [facility] CenterHyge[facility] Personal Care Products Phone: start: 30-55-2297Nyd Assigned At [facility] Centertart: 08-14-2022 End: 54-16-9438Nmq Assigned At [facility] [employer] Other Start: 83-49-9195Wegiywo SDOH Physical Activity DPW0 BON [employer] Phone: start: 35-41-7275Dbrtrjn SDOH Ghbfehqvr5YDI [employer] Phone: start: 22-01-7296Dxymuqx SDOH IPV Mlvt9PLU [employer] Phone: start: 87-47-5984Tzvahsb SDOH Food Wndsk8JIV [employer] Phone: start: 01-26-2022 End: 23-69-6635Ssaswkjp to SARS-CoV-2 (event)Not sureBON [facility] Start: 08-23-6160Szxvsta Comment1-2 drinks less than monthly in the past year [facility] HealthcareStart: 15-89-1097DazfhvulxQQSV HealthcareStart: 06-17-2023 End: 68-34-0186Mwgrwfqir beverage intakeEx-drinker (finding)[facility] SystemStart: 87-87-7642AfdpryquiHpalfeqIVBQ HealthcareStart: 88-72-7624Riwqnfb smoking status NHISEx-smokerProMedina Hospital SystemHistory of tobacco useCurrent smokerSt. Elizabeth Hospital System Goals DatePatient GoalDesired Activity/State Clinical Notes 08-17-2021 to 11-22-2024 Note Date & ZqxkOmfxRyxamwcn94-04-1018 History of Present illness Narrative* Laurel Jacobson, CELL ATTENDANT - 11/22/2024 3:50 PM EDT Images from the original note were not included. Reason for Appointment: Patient ID: Darrius Kramer is a 29 y.o. female who [...] nursing note reviewed. Exam conducted with a valve fitter present. Vitals: Estimated body mass index is [...] of: Laurel Jacobson NP documented in this encounterCedar County Memorial HospitalRvvdvxqypi96-81-9666 History of Present illness Narrative* Ailin Diamond, MAIL WEIGHER - 04/17/2024 11:00 AM EST Reason for Appointment: Patient ID: Darrius Kramer is a 29 y.o. female who [...] nursing note reviewed. Exam conducted with a valve fitter present. Vitals: Estimated body mass index is 43.55 kg/m as calculated from the following: Height as of 09/14/24: 5'. Weight as of this encounter: 223 [...] for annual unless needed otherwise. Documented by iAlin Diamond LPN on behalf of: Alvarado Perry DO documented in this encounterCedar County Memorial HospitalVwqgagisxe30-10-9825 History of Present illness Narrative* Risa Tolbert, MAIL WEIGHER - 10/20/2023 11:40 AM EDT Reason for Appointment: Patient ID: Darrius Kramer is a 28 y.o. female who presents for Care Patient presents today for Post Follow Up appointment. MEDICATIONS Current Outpatient Medications Medication Instructions etonogestrel-ethinyl estradiol (Nuvaring) 0.12-0.015 MG/24HR vaginal ring 1 Ring, Vaginal, Every 28days, Insert vaginal ring for 3 weeks, then [...] nursing note reviewed. Exam conducted with a valve fitter present. Vitals: Estimated body mass index is [...] time. Patient presents today for 6 week postpartumvisit. Patient is s/p delivery. Patient states depression but denies suicidal and homicidal ideations. All options were discussed with the patient regarding control and patient desires NuvaRing. Follow Up: Patient is to return for annual unless needed otherwise. Documented by Risa Tolbert LPN on behalf of: Alvarado Perry DO documented in this encounterCedar County Memorial HospitalGyvsizjtqh76-01-3593 History of Present illness Narrative* Perry Ybarra MD - 08/10/2023 9:00 AM EDT REASON FOR OFFICE VISIT: Follow up left clubfoot, chronic hypertension HISTORY OF PRESENT ILLNESS: Darrius Kramer is a pleasant 28 y.o. at [...] mg total) by mouth in the morning. (Patientnot taking: Reported on 07/11/2023), Disp: 10 tablet, [...] kg (244 lb) LMP 12/20/2022 BMI 47.65 kg/m. Well-appearing, no acute distress Normal gait well oriented in time place and person. Respirations not labored, speaking comfortably in complete sentences Gravid abdomen OVERALL ASSESMENT -Darrius Kramer is a pleasant 28 y.o. at [...] 32 weeks with weekly NST/DVP, or earlier ifpoorly controlled HTN, FGR, or preeclampsia. Increase NST [...] gestation for women with chronic hypertension who arenot prescribed medication or from 37 0/7 weeks to 39 6/7 weeks of gestation for women whose chronichypertension is well-controlled with medication. please notify senior investigator the patient will need to be referred to pediatric Orthopedic surgery location of delivery local hospital DISPOSITION: At this point the patient is in complete care of her cloth winder. Patient does not have ultrasound and office visit scheduled with us. Thank you for allowing me to participate in the care of Darrius Kramer. If there any questionsplease do not hesitate to contact us. Total time spent was 35 minutes: Preparing to see the patient (e.g., review of tests) Obtaining and/or reviewing separately obtained history Performing a medically appropriate examination and/or evaluation Counseling and educating the patient/family/caregiver Ordering medications, tests, or procedures Referring and communicating with other health healthcare business analyst (not separately reported) Documenting clinical information in the electronic or other health record Perry Ybarra MD Maternal- Medicine [facility] [address] [place] [address] [facility], the CDC, and other organizations representing maternal and public health professionals recommend that , , and lactating people and those considering receive the COVID-19 vaccination. Vaccination is the best method to reduce maternal and complications of SARS-CoV-2 infection. This document was created with [employer] technology. Though I make every effort to review the dictation as it is transcribed, on occasion the spoken word can be misinterpreted by the technology leading to inappropriate words, phrases, or sentences. This note is addressed to the requesting provider as a consultation for clinical guidance. Specificmedical abbreviations are occasionally used and those are generally approved by the [place]?Board of?Obstetrics and?Gynecology?as well as?Lana parrish abbreviations. The above plan of care was based solely on the diagnoses for which a consultation was requested. ?More frequent testing may be indicated based on her other medical/obstetrical conditions. The management of other or medical conditions is beyond the scope of requested consultation and will c ontinue to be followed by the primary cloth winder or primary care provider. Note to patient: The Century Cures Act makes medical notes like these available to patients inthe interest of transparency. However, be advised this is a medical document. It is intended as peer to peer communication. It is written in medical language and may contain abbreviations or verbiagethat are unfamiliar. It may appear blunt or direct. Medical documents are intended to carry relevant information, facts as evident, and the clinical opinion of the practitioner. * Edith Galvez RN - 08/10/2023 9:00 AM EDT Headache/epigastric pain/blurry vision/swelling? no Cramping/contractions? no Abnormal vaginal discharge? no Spotting or vaginal bleeding? no Loss of fluid like your water may have broken? no Recent ER visits or hospitalizations? no Any concerns that you would like me to mention to the provider today? no documented in this encounterBucyrus [facility] Hospital05-14-2024 Miscellaneous Notes* Telephone Encounter - Edith Galvez RN - 07/12/2023 1:24 PM EDT Called patient to inform of change in schedule. No answer, left VM to please call scheduling officeif needing to reschedule documented in this encounterBucyrus Community Hospital05-14-2024 Telephone encounter Note* Telephone Encounter - Edith Galvez RN - 07/12/2023 1:24 PM EDT Called patient to inform of change in schedule. No answer, left VM to please call scheduling officeif needing to reschedule [facility]05[facility] History of Present illness Narrative* Leo Johnson MD - 07/11/2023 2:15 PM EDT [facility] Maternal- Medicine Consult Note Reason For Consult: left club foot HPI: Darrius Kramer is a 28 y.o. at 29w0d [...] of: Learning difficulties, congenital anomalies, DVT/VTE, early-onset cancer,early-onset cardiac disease or other inherited conditions Denies [...] mg total) by mouth in the morning. (Patientnot taking: Reported on 07/11/2023), Disp: 10 tablet, [...] Resource Strain: Low Risk (03/27/2021) Received from [facility] Overall Financial Resource Strain (CARDIA) Difficulty of Paying Living Expenses: Not hard at all Food Insecurity: No Food Insecurity (03/27/2021) Received from [facility] Hunger Vital Sign Worried About Running Out of Food in the Last Year: Never true Ran Out of Food in the Last Year: Never true Transportation Needs: Not on file Physical Activity: Unknown (02/03/2022) Received from [facility] Exercise Vital Sign Days of Exercise per Week: 0 days Minutes of Exercise per Session: Not on file Stress: Not on file Social Connections: Not on file Interpersonal Safety: Not At Risk (02/03/2022) Received from [facility] Humiliation, Afraid, Rape, and Kick questionnaire [...] 7 per 1000 live births in different populations.Most of the studies reported that the incidence of clubfoot is higher in male than in female (2:1),and this ratio is consistent in all ethnic [...] syndromes such as Torres; Eric; PierreRobin; Alarcon-Shokeir; Meckel- Marta; Guadarrama-LemliOpitz; Ellison; TARP (Talipes equinovarus, Atrial septal [...] chorionic villus sampling) with chromosomal microarray analysis (OUTSIDE SALES ACCOUNT REPRESENTATIVE) should be offered when a club foot [...] . For women with a BMI>40 kg/m2, considerprophylactic low molecular weight heparin therapy for 3-5 [...] is poor growth, although the evidence for thisassociation is not robust. In the setting of [...] in with normal physiologic decrease in systemic vascularresistance leads to a decrease in blood pressure, [...] hypertension becomes severe, reduces the risk of maternaland morbidity without increasing the risk of SGA infants or other morbidities. Based on the available evidence, [facility] recommends treatment with antihypertensive therapy for mild [...] and hydrochlorothiazide. In general, for the initial treatmentof women with chronic hypertension who require pharmacologic therapy, labetalol, methyldopa or nifed ipine are recommended. Continue to monitor blood pressure, [...] of limbs and MFM visit -please notify senior investigator the patient will need to be referred to pediatric Orthopedicsurgery -location of delivery local hospital -the patient [...] of the thyroid gland the patient desires tohave this done locally - vaginal delivery preferred [...] Leo Johnson MD, FACOG (she/hers) Maternal- Medicine [facility] [address] [place] [address] This document was created with [employer] technology. Though I make every effort to review the dictation as it is transcribed, on occasion the spoken word can be misinterpreted by the technology leading to inappropriate words, phrases, or sentences. This note is addressed to the requesting provider as a consultation for clinical guidance. Specificmedical abbreviations are occasionally used and those are generally approved by the [place]?Board of?Obstetrics and?Gynecology?as well as?Lana parrish abbreviations. The above plan of care was based solely on the diagnoses for which a consultation was requested. ?More frequent testing may be indicated based on her other medical/obstetrical conditions. The management of other or medical conditions is beyond the scope of requested consultation and will c ontinue to be followed by the primary cloth winder or primary care provider. Note to patient: The Cures Act makes medical notes like these available to patients inthe interest of transparency. However, be advised this is a medical document. It is intended as peer to peer communication. It is written in medical language and may contain abbreviations or verbiagethat are unfamiliar. It may appear blunt or direct. Medical documents are intended to carry relevant information, facts as evident, and the clinical opinion of the practitioner. * Edith Galvez RN - 07/11/2023 2:15 PM EDT Headache/epigastric pain/blurry vision/swelling? no Cramping/contractions? no Abnormal vaginal discharge? no Spotting/vaginal bleeding? no Loss of fluid like your water may have broken? no Cats in the home? no Do you change the litter box? Flu vaccine? no Genetic testing done this here or other office? yes Have you been seen here at [facility] in a previous ? no Recent ER visits or hospitalizations? no Bring blood sugar log or meter with you today? (Please bring them with you for every visit at [facility]) n/a Traveled outside the country in the past 6 month no Any concerns that you would like me to mention to the provider today? no documented in this encounterOhioHealth [facility] Center [employer] [id number] History of Present illness Narrative* Lauren Crystal MA - 04/14/2023 10:20 AM EST Reason for Appointment: Patient ID: Darrius Nieset is a 28 y.o. female who presents [...] nursing note reviewed. Exam conducted with a valve fitter present. Vitals: Estimated body mass index is [...] her MSAFP order do have done at [facility]. Documented by Lauren Crystal MA on behalf of: Alvarado Perry DO documented in this encounterCedar County Memorial HospitalYxfzhwlwib02-35-6434 Evaluation note* Encounter Date Diagnosis Assessment Notes Treatment Notes Treatment Clinical Notes Mar, Left otitis media, unspecified o titis media type (ICD-10 - H66.92) Middle ear infection: adult home care material was printed Drink plenty fluids, get plenty of rest. Take the amoxicillin as prescribed until gone. Use eardrops as prescribed. Take Tylenol or Motrin as needed for aches pains or fevers. Follow-up with your family physician if no improvement in 2 to 3 days. Mar,cute otitis externa of left ear, unspecified type (ICD-10 - H60.502) Answer.To Other 12-16-2022 History of Present illness Narrative* Analia Sin RN - 02/12/2022 8:30 AM EST Patient tolerated left hip injections without distress. Dry dressing to site. Patient to MRI for further imaging. documented in this encounterB[facility] [employer] Work Phone: 1(692) 941-896710-03-2022 Evaluation note* Encounter Date Diagnosis Assessment Notes Treatment Notes Treatment Clinical Notes Nov, Tattoo reaction (ICD-10 - L92.3) Use medication as directed. complete all doses. Recommend unscented soap to [facility] Answer.To Other 09-14-2022 Evaluation note* Encounter Date Diagnosis Assessment Notes Treatment Notes Treatment Clinical Notes Oct, Contact with and (darnell spected) exposure to other viral communicable diseases (ICD-10 - Z20.828) 14 Sep, 2022COVID-19 (ICD-10 - U07.1)Discharge Instructions for COVID-19 (Suspected or Confirmed ) material was printed Drink plenty fluids, get plenty of rest. Take Tylenol or Motrin as needed for aches pains or fever.You must quarantine for 5 days after the onset of your symptoms of COVID. Follow-up with your family physician if no improvement in 2 to 3 days. Answer.To Other 06-20-2022 Evaluation note* Encounter Date Diagnosis Assessment Notes Treatment Notes Treatment Clinical Notes Jul, Pain of left thumb (ICD-10 - M79 .645) Jul,Thumb tendonitis (ICD-10 - M77.8) Jul,therWear the splint is much as possible. Take ibuprofen up to 600 mg up to 3 times a day with food as needed for pain and swelling. Follow-up with your family physician if no improvement in 5 to 7 days, Tendonitis home care material was printed Answer.To Other Evaluation noteNo Assessments Information Available [facility]* Diagnosis Tear of left acetabular labrum, initial encounter documented in this encounter [facility] Work Phone: evaluation note* Diagnosis Well woman exam with routine gynecological exam Routine gynecological examination Exposure to STD Encounter for anatomic survey Need for maternal serum alpha-protein (MSAFP) screening Second trimester state, incidental documented in this encounter [facility] HealthcareEvaluation noteNo assessment information availablePomerene Hospital [email or web address] Work Phone: Evaluation note* Diagnosis 6 weeks follow-up Encounter for initial prescription of vaginal ring hormonal contraceptive documented in this encounter [facility] HealthcareEvaluation note* Diagnosis 29 weeks [...] in third trimester documented in this encounter [facility]* Diagnosis Well woman exam with routine gynecological exam Routine gynecological examination documented in this encounter [facility] HealthcareEvaluation note* Diagnosis Breast pain Mastodynia Mass of right breast, unspecified quadrant documented in this encounter [facility] HealthcareHistory general Narrative - Reported* Type Description Date Surgical History laparoscopy female Surgical HistoryappendectomySurgical Historybronchoscopy Answer.To Other History general Narrative - Reported* Type Description Date Medical History Esophageal reflux Surgical Historylaparoscopy femaleSurgical HistoryappendectomySurgical History bronchoscopy Answer.To Other Hospital Discharge instructions* Attachments The following attachments cannot be sent through Care Everywhere. * Joint Injections (Italian) documented in this encounterABRAZO [facility] [employer] Phone: InstructionsNot on filedocumented in this encounter [facility] SystemInstructions* Attachments The following attachments cannot be sent through Care Everywhere. * Preeclampsia (Italian) * Movement (Italian) documented in this encounterProCitizens Baptist Health SystemInstructionsNot on file documented in this encounterProMedina Hospital SystemInstructionsNot on file documented in this encounterProMedina Hospital System Assessments Diagnosis RUQ pain Abdominal pain, right upper quadrant Diagnosis RUQ pain Abdominal pain, right upper quadrant Advance Directives TypeDate RecordedPatient RepresentativeExplanationACP-Advance DirectiveACP-Power of AttorneyTypeDate RecordedPatient RepresentativeExplanationACP-Advance DirectiveACP-Power of Home Restoration Service Cleaner Advance Directive Response Recorded Date/ Time Advance Directives No October 09, 2017 12:18pm Reason for Referral StatusReasonSpecialtyDiagnoses / ProceduresReferred By ContactReferred To ContactClosedRadiology Diagnoses RUQ pain Procedures US GALLBLADDER RUQ Camron Alicea, LALA [address] [place] [address] SpecialtyDiagnoses / ProceduresReferred By ContactReferred To ContactRadiology Diagnoses Tear of left acetabular labrum, initial encounter Procedures IR INJ ARTHROGRAM HIP LEFT Elicia Piedra [place] [id number] [place] [address] Referral IDStatusReasonStart DateExpiration DateVisits RequestedVisits [id number]/16/202212/16/716147AxtgtdweiJvdxvxfsj / Procedures Referred By ContactReferred To ContactRadiology Diagnoses Tear of left acetabular labrum, initial encounter S73.192A (ICD-10-CM) - Tear of left acetabular labrum, initial encounter Procedures IR INJ ARTHROGRAM HIP LEFT [place] INJECTION HIP ARTHROGRAM [id number] - [place] INJECTION HIP ARTHROGRAM Elicia Piedra PA [address] [place] [address] Referral IDStatusReasonStdamar DateExpiration DateVisits RequestedVisits [id number]/9/202212/9/202311 Chief Complaint and Reason for Visit Chief [...] for Visit (unrecogniz ed section and content) StatusReasonSpecialtyDiagnoses / ProceduresReferred By ContactReferred To ContactClosedRadiology Diagnoses RUQ pain Procedures US GALLBLADDER RUQ Camron Alicea, LALA [address] [place] [address] SpecialtyDiagnoses / ProceduresReferred By ContactReferred To ContactRadiology Diagnoses Tear of left acetabular labrum, initial encounter S73.192A (ICD-10-CM) - Tear of left acetabular labrum, initial encounter Procedures IR INJ ARTHROGRAM HIP LEFT [place] INJECTION HIP ARTHROGRAM - [place] INJECTION HIP ARTHROGRAM Elicia P[place] [id number] [place] [address] Referral IDStatusReasonStart DateExpiration DateVisits RequestedVisits [id number]/9/202212/9/949472ItqrddVzwmdvoaSfsaxxi Visit ReasonCommentsPostpartum CareReasonCommentsleft club footReasonCommentsclubbed left footmarginal cord insertionReasonCommentsGynecologic ExamReasonComments Breast PainPt present today for right breast pain. INFORMATION SOURCE (unrecogn ized section and content) DATE CREATED AUTHOR 03/29/2021 [facility] DATE CREATED AUTHOR AUTHOR'S ORGANIZ ATION 08/17/2021 [facility] DATE CREATED AUTHOR AUTHOR'S ORGANIZ ATION 02/18/2022 [facility] DATE CREATED AUTHOR AUTHOR'S ORGANIZ ATION 08/11/2023 [facility] DATE CREATED AUTHOR AUTHOR'S ORGANIZ ATION 09/16/2023 [facility] DATE CREATED AUTHOR AUTHOR'S ORGANIZ ATION 04/13/2024 [facility] DATE CREATED AUTHOR AUTHOR'S ORGANIZ ATION 10/26/2024 [facility] DATE CREATED AUTHOR AUTHOR'S ORGANIZ ATION 11/30/2024 [facility] EPIC Care Teams (unrecognized sec tion and content) Team MemberRelationshipSpecialtyStart [place] [address] [facility] [place] [address] [place] [address] PCP - [facility]03/11/15 Team Status: Active Member Role Status Dates Mirna Bennett MD Primary Care Provider Active Team Status: Inactive Member Role Status Dates Mirna Bennett MD Primary Care Provider Active Start: September 10, 2023 End: September 09orecourtney Perry DOAttjayna ProviderActiveStart: September 10, 2023 End: September 10, 2023Team MemberRelationshipSpecialtyStart [place] [address] [facility] [address] [place] [address] [place] [address] [facility] - [facility]16Team MemberRelationshipSpecialtyStart [place] [address] [address] [place] [address] [place] [address] PCP - [facility]08/15/16Team MemberRelationshipSpecialtyStart [place] [address] [facility] [place] [address] PCP - [facility]08/15/16 Goals (unrecognized section and content) Goals may [...] BE BASED ON THE PRIMARY CLINICAL RECORDS. [facility]. provides no warranty or guarantee of the accuracy or completeness of information in this document.
--- OUTSIDE RECORDS SUMMARY | 2025-01-13 15:59 | XMS_ITS | Clinical Summary ---
Author Organization [facility] tem Address [facility] [place] [address] 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 10 tablet 5Active prochlorperazine (COMPAZINE) 10 mg tablet Take 1 tablet (10 mg total) by mouth 2 (two) times a day as needed for nausea or vomiting. 10 tablet 5Active ondansetron (ZOFRAN) 4 mg tablet Take 1 tablet (4 mg total) by mouth every 8 (eight) hours as needed for nausea or vomiting for up to 12 doses. 12 tablet 5Active Active Problems Patient Care Coordination No te Formatting of this note migh t be different from the original. CARE COORDINATION DIAGNOSIS: left clubbed foot Referring OB: Vicky MFM: Docheva cfDNA: low risk XY Amnio: NICU not needed [x]Peds Ortho: notify merchandiser the patient will need to be referred to pediatric Orthopedic surgery Delivery Recommendation: [x] Term at local hospital [] Term at H Surveillance Plan: [] Survey at __ weeks [x] Growth q 4 weeks [] Dopplers q __ weeks [] Echo at __ weeks [] Cervical length q __ weeks [] TTTS q __ weeks [x] Wkly NST/JOHN starting at 32 weeks at OB if uncontrolled HTN [x] 2x/wk NST/JOHN starting at 36 weeks at OB if uncontrolled HTN ProblemNoted DateDiagnosed DateClub foot, , affecting care of mother, /13/2024Obesity affecting in third /13/2024 Marginal insertion of umbilical cord affecting management of xcfhxk2407/11/2023 Enlarged thyroid gland07/11/20235291Hkxzydrloczu72/13/2024 Encounters DateTypeDepartmentCare EbyrOryzpppdzuk99/25/8132Fqixxm18/20/2025Travelfrom Last 3 Months Family History Medical HistoryRelationNameCommentsHypotensionMotherRelationNameStatusComments Mother Social History Tobacco UseTypesPacks/DayYears UsedDateSmoking Tobacco: FormerCigarettes0.57 Smokeless Tobacco: Never Tobacco Cessation:Counseling Given: Not Answered Alcohol UseStandard Drinks/WeekCommentsNot Currently0 (1 standard drink = 0.6 oz pure alcohol)ChildcareAnswerDate BodnslgzPbwwvfvnbLhiydul23/11/2019Employment AnswerDate UqqofmpzRaqtjtduacRcizeba84/11/2019Hunger ScreeningAnswerDate RecordedWithin the past 12 months we worried whether our food would run out before we got money to buy more.Never True10/07/2024Within the past 12 months the food we bought just didn't last and we didn't have money to get more.Never True10/07/2024Purpose - LifeAnswerDate RecordedPurpose and direction in life Xwtxfxh46/17/2021CommentsNoSex and Gender InformationValueDate Recorded Sex Assigned at BirthNot on fileLegal EukGthedl69/04/2015 6:17 PM EDTGender IdentityNot on fileSexual OrientationNot on file Last Filed Vital Signs Vital SignReadingTime TakenCommentsBlood Efnzmyzb279/4794810/07/2024 5:13 AM EDT Hxopv225510/07/2024 5:30 AM UJZXwbiwbsvxcq67.7 ??C (98.1 ??F)10/07/2024 5:13 AM EDTRespiratory Skga448610/07/2024 5:30 AM EDTOxygen Yiafiqkwfr20%10/07/2024 5:30 AM EDTInhaled Oxygen Concentration--Jxjmho68.6 kg (180 lb)10/07/2024 5:13 AM EDT Qznqaf903.4 cm (5')10/07/2024 5:13 AM EDTBody Mass Index35.15010/07/2024 5:13 AM EDT Plan of Treatment Health MaintenanceDue DateLast DoneCommentsDepression Txjeqjvct48/23/2007dult BMI Follow Up Plan2013Pap Smear02/20/2016DTaP,Tdap and Td Vaccines (7 - Td or Tdap)/09/2011, 10/21/2000, 07/25/1997, Additional history exists Influenza Hrpfpwz52/dult BMI Ctlpobcuk34 Tobacco Qhudohpst36 Medical Devices Not on file Procedures Procedure NamePriorityDate/TimeAssociated DiagnosisCommentsFECAL LACTOFERRIN Qtfrdtj5610/22/2024 7:50 AM EDT Change in bowel habit PANCREATIC ELASTASE, YFrpmuah72/25/2025 7:50 AM EDT Change in bowel habit CBC WITH AUTO EGWARAGNBIWQUtbjuhm10/20/2025 1:39 PM EDT Change in bowel habit TRANSGLUTAMINASE KVQOugzoym07/20/2025 1:36 PM EDT Change in bowel habit CELIAC DISEASE SEROLOGY OIGCCAJLdesiaj11/20/2025 1:36 PM EDT Change in bowel habit CKZZOKAlzxebu97/20/2025 1:36 PM EDT Change in bowel habit LIVER IESYIKstthyv72/20/2025 1:36 PM EDT Change in bowel habit BASIC METABOLIC DMQJWBbeyibc10/20/2025 1:36 PM EDT Change in bowel habit from Last 3 Months Results * Pancreatic Elastase, F (10/22/2024 7:50 AM EDT)ComponentValueRef RangeTest MethodAnalysis TimePerformed AtPathologist SignaturePANCREATIC ELASTASE, F>500 >200 (Normal) mcg/g010/24/2024 2:29 PM EDTMSOUTHAMPTON MEMORIAL HOSPITAL LABORATORIESComment: Test Performed by: [facility] [address] [place] [address] Sliver Cutter: Jair Jackson Ph.D.; CLIA# [id number] Specimen (Source)Anatomical Location / LateralityCollection Method / Volume Collection TimeReceived TimeStoolFeces / Njtcwbs3010/22/2024 7:50 AM EDT10/22/2024 7:50 AM EDT Narrative Authorizing ProviderResult TypeResult StatusRamses Van MDBODY FLUIDS AND STOOLS ORDERABLESFinal ResultPerforming OrganizationAddressCity/State/ZIP Code Phone Number [facility] [address] [place] [address], * Fecal lactoferrin (10/22/2024 7:50 AM EDT)ComponentValueRef RangeTest Method Analysis TimePerformed AtPathologist SignatureFECAL LACTOFERRINNegative Yxgtqlkh57/25/2025 4:31 PM [facility] LABORATORYSpecimen (Source)Anatomical Location / LateralityCollection Method / VolumeCollection TimeReceived TimeStoolFeces / Oolcjji0110/22/2024 7:50 AM EDT10/22/2024 7:50 AM EDT Narrative Authorizing ProviderResult TypeResult StatusRamses Van MDBODY FLUIDS AND STOOLS ORDERABLESFinal ResultPerforming OrganizationAddressCity/State/ZIP Code Phone Number [facility] [address] [place] [address], [place] [phone] * (ABNORMAL) CBC auto differential (10/17/2024 1:39 PM EDT)ComponentValueRef RangeTest MethodAnalysis TimePerformed AtPathologist StzoczsxmTJG21.34 - 11 x10E9/L10/17/2024 8:26 PM [facility] LABORATORYRBC Count4.57 3.8 - 5.2 X10E12/L10/17/2024 8:26 PM [facility] Qedunijbtg60.311.7 - 15.5 g/dL10/17/2024 8:26 PM [facility] JSMLZZRSYNVlngixistg05.535 - 47 %10/17/2024 8:26 PM [facility] FGDUMYWXVGLWW6431 - 100 fL10/17/2024 8:26 PM [facility] DXLQTIERSXBSD37.127 - 34 pg10/17/2024 8:26 PM [facility] LZJITVMTJNYFQF15.932 - 36 g/dL10/17/2024 8:26 PM [facility] DCNCWLASDRHXY16.011.5 - 15 %10/17/2024 8:26 PM [facility] LABORATORYPlatelet Yqcfv095195 - 450 X10E9/L10/17/2024 8:26 PM EDT [facility] LABORATORYMPV8.57 - 12 fL10/17/2024 8:26 PM [facility] LABOR[facility]ORYNeutrophils %74.7%10/17/2024 8:26 PM [facility] LABORATORYLymphocytes %18.2%10/17/2024 8:26 PM [facility] LAB[facility]ORYMonocytes %4.4%10/17/2024 8:26 PM [facility] LAB[facility]ORYEosinophils %2.3%10/17/2024 8:26 PM [facility] LABORATORYBasophils %0.4%10/17/2024 8:26 PM [facility] LABORATORYNeutrophils Absolute (A)7.7(H)1.5 - 6.6 10*3/uL 10/17/2024 8:26 PM [facility] LABORATORYLymphocytes Absolute 1.91.0 - 3.5 10*3/uL10/17/2024 8:26 PM [facility] Monocytes Absolute0.50.0 - 0.9 10*3/uL10/17/2024 8:26 PM [facility] LABORATORYEosinophils Absolute0.20.0 - 0.4 10*3/uL10/17/2024 8:26 PM [facility] LABORATORYBasophils Absolute0.00.0 - 0.2 10*3/uL 10/17/2024 8:26 PM [facility] LABORATORYDifferential Type AUTOMATED JAGIVQZPYRHE19/20/2025 8:26 PM [facility] LABORATORYSpecimen (Source)Anatomical Location / LateralityCollection Method / VolumeCollection TimeReceived TimeBloodVenous blood / UnknownVenipuncture / Gbadldv0810/17/2024 1:39 PM EDT10/17/2024 1:39 PM EDT Narrative Authorizing ProviderResult TypeResult Ina SURESH BLOOD ORDERABLES Final ResultPerforming OrganizationAddressCity/State/ZIP CodePhone Number [facility] [address] [place] [address], * Transglutaminase IgA (10/17/2024 1:36 PM EDT)ComponentValueRef RangeTest MethodAnalysis TimePerformed AtPathologist SignatureTTG AB IGA<1.2<4.0 (Negative) U/mL10/18/2024 9:25 PM [facility] LABORATORIESComment: Test Performed by: [address] [address] Sliver Cutter: Jair Jackson Ph.D.; CLIA# [id number] Specimen (Source)Anatomical Location / LateralityCollection Method / Volume Collection TimeReceived TimeBloodVenous blood / Holmezj5410/17/2024 1:36 PM EDT 10/17/2024 1:37 PM EDT Narrative Authorizing ProviderResult TypeResult Ina SURESH BLOOD ORDERABLES Final ResultPerforming OrganizationAddressCity/State/ZIP CodePhone Number [facility] [address] [place] [address], [place] * Celiac disease serology cascade (10/17/2024 1:36 PM EDT)ComponentValueRef RangeTest MethodAnalysis TimePerformed AtPathologist SignatureCELIAC DISEASE SEROLOGY CASCADESEE SCDOYIQS51/21/2025 9:36 PM EDTMMAYO CL[facility] Comment: Test ?Result ? Flag ??Unit ?? RefValue Celiac Disease Serology [place] ??Immunoglobulin A (IgA), S ? 163 ?mg/dL ??61 - 356 ??Celiac Disease Interpretation ? SEE COMMENTS ?See Comment: ?Negative serology. Celiac disease unlikely. However, ?approximately 10% of patients with celiac disease are ?seronegative. Also, patients who are already adhering to a ?gluten-free diet may be seronegative. If celiac disease is ?highly clinically suspected, consider HLA-DQ typing. ?Test Performed by: ?[facility] ?[address] [place] [address] ?Sliver Cutter: Jair Jackson Ph.D.; CLIA# [id number] Specimen (Source)Anatomical Location / LateralityCollection Method / Volume Collection TimeReceived TimeBloodVenous blood / Zlpaxja1610/17/2024 1:36 PM EDT 10/17/2024 1:37 PM EDT Narrative Authorizing ProviderResult TypeResult StatusRamses SURESH BLOOD ORDERABLES Final ResultPerforming OrganizationAddressCity/State/ZIP CodePhone Number [facility] [address] [place] [address], [place] * Lipase (10/17/2024 1:36 PM EDT)ComponentValueRef RangeTest MethodAnalysis Time Performed AtPathologist HcyosbsarWDIWLR1236 - 82 U/L10/17/2024 6:07 PM EDT [facility] LABORATORYSpecimen (Source)Anatomical Location / LateralityCollection Method / VolumeCollection TimeReceived TimeBloodVenous blood / Avxvddv2810/17/2024 1:36 PM EDT10/17/2024 1:36 PM EDT Narrative Authorizing ProviderResult TypeResult StatusRamses SURESH BLOOD ORDERABLES Final ResultPerforming OrganizationAddressCity/State/ZIP CodePhone Number [facility] [address] [place] [id number], * (ABNORMAL) Liver panel (10/17/2024 1:36 PM EDT)ComponentValueRef RangeTest MethodAnalysis TimePerformed AtPathologist SignatureTOTAL PROTEIN6.66.0 - 8.0 g/dL10/17/2024 6:07 PM [facility] LABORATORYALBUMIN3.83.2 - 5.3 g/dL10/17/2024 6:07 PM [facility] BILIRUBIN,TOTAL0.2(L)0.3 - 1.2 mg/dL10/17/2024 6:07 PM [facility] LABORATORYALKALINE XMQWUEVOONK9539 - 130 U/L10/17/2024 6:07 PM EDT [facility] INMHRAXMRMODV60<=41 U/L10/17/2024 6:07 PM [facility] HCNDCIGBZASXS20<=31 U/L10/17/2024 6:07 PM [facility] LABORATORYBILIRUBIN,DIRECT<0.1<=0.4 mg/dL10/17/2024 6:07 PM EDT [facility] LABORATORYSpecimen (Source)Anatomical Location / LateralityCollection Method / VolumeCollection TimeReceived TimeBloodVenous blood / Leazjtv9210/17/2024 1:36 PM EDT10/17/2024 1:36 PM EDT Narrative Authorizing ProviderResult TypeResult StatusRamses SURESH BLOOD ORDERABLES Final ResultPerforming OrganizationAddressCity/State/ZIP CodePhone Number [facility] [address] [place] [address], * (ABNORMAL) Basic Metabolic Panel (10/17/2024 1:36 PM EDT)ComponentValueRef RangeTest MethodAnalysis TimePerformed AtPathologist RmjhyzgzzIODREX873608 - 146 mmol/L10/17/2024 6:07 PM [facility] LABORATORYPOTASSIUM 3.63.5 - 5.0 mmol/L10/17/2024 6:07 PM [facility] WQIEVTBU16529 - 109 mmol/L10/17/2024 6:07 PM [facility] LABORATORYCARBON UODJNMG9409 - 32 mmol/L10/17/2024 6:07 PM [facility] LABORATORYANION GAP95 - 15 mmol/L10/17/2024 6:07 PM [facility] LABORATORYBLOOD UREA HJJWCLUS172 - 23 mg/dL10/17/2024 6:07 PM [facility] LABORATORYCREATININE0.660.40 - 1.00 mg/dL 10/17/2024 6:07 PM [facility]ORATORYComment:METHOD TRACEABLE TO IDMS SSXWSNOLUCXBEZQ716(H)65 - 99 mg/dL10/17/2024 6:07 PM EDT [facility] LABORATORYCALCIUM9.08.5 - 10.5 mg/dL10/17/2024 6:07 PM [facility]ORYEGFR Non-Race Dependent>90>=60 ml/min/1.73sq.m010/17/2024 6:07 PM [facility] Comment: Reported eGFR is based on the CKD-EPI 2020 equation that does not use a race coefficient. EGFR not calculated due to patient's gender not being defined. Specimen (Source)Anatomical Location / LateralityCollection Method / Volume Collection TimeReceived TimeBloodVenous blood / Phsjite0910/17/2024 1:36 PM EDT 10/17/2024 1:36 PM EDT Narrative Authorizing ProviderResult TypeResult StatusRamses SURESH BLOOD ORDERABLES Final ResultPerforming OrganizationAddressCity/State/ZIP CodePhone Number [facility] [address] [place] [address], from Last 3 Months Insurance Care Teams Team MemberRelationshipSpecialty[place] [address] [facility] [place] [address] [place] [address] PCP - GeneralFamily Medicine04/10/24
--- OUTSIDE RECORDS SUMMARY | 2025-01-13 15:59 | XMS_ITS | Patient Health Record ---
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 Name Role Phone None, Unknown or Primary Care Provider Unavailab le Reason For Referral No Information Immunizations Vaccine Route Administration Date Status Comme nts DTaP (Daptacel) Unknown 1995 Pending 95 DTaP (Daptacel) Unknown 1995 Pending 95 DTaP (Daptacel) Unknown 09/27/1996 Pending 09/27/96 DTaP (Daptacel) Unknown 07/25/1997 Pending 07/25/97 DTaP (Daptacel) Unknown 10/21/2000 Pending 10/21/00 Flu, FluMist 2-49 nasal spray (61884) Nasal 02/04/2010 Pending 88Nsg5574 10:39A M Hep B, Adult, 3 Dose Unknown 1995 Pending 01/29 Hep B, Adult, 3 Dose Unknown 1995 Pending 04/28 Hep B, Adult, 3 Dose Unknown 07/25/1997 Pending 06/29 HIB (ActHIB) Unknown 1995 Pending 95 HIB (ActHIB) Unknown 1995 Pending 95 HIB (ActHIB) Unknown 09/27/1996 Pending 09/27/96 HIB (ActHIB) Unknown 07/25/1997 Pending 07/25/97 HPV (Gardasil) Intramuscular 04/23/2009 Pending 05Znl45 10 04:42PM HPV (Gardasil) Intramuscular 12/23/2009 Pending 92Vlc79 10 03:36PM HPV (Gardasil) Intramuscular 04/07/2011 Pending 33Jbu10 12 11:38AM Meningococcal (Menactra) Intramuscular 12/23/2009 Pending [id number] 03:36PM MMR Unknown 09/27/1996 Pending 09/27/96 MMR Unknown 10/21/2000 Pending 10/21/00 Polio Virus, IPV Unknown Pending Polio Virus, IPV Unknown 1995 Pending 95 Polio Virus, IPV Unknown 1995 Pending 95 Polio Virus, IPV Unknown 09/27/1996 Pending 09/27/96 Tdap Intramuscular 04/07/2011 Pending [id number] 1 1:37AM Plan Of Treatment No Information Insurance Providers Payer Name Payer Address Payer Phone Subscriber Number Group Number Insured Name Patient Relationship to Insured Coverage Start Date Coverage End Date [employer] PPO PLUS LOCAL PLAN [address] [place] [address] [id number] Katja Kramer - patient is the insured
--- OUTSIDE RECORDS SUMMARY | 2025-01-13 15:59 | XMS_ITS | Clinical Summary ---
Author Organization [facility] Address [address] [place] [address] Care Team Providers [facility] Name Role Phone Unavailable Primary Care Provider Unavailabl e Allergies Active AllergyReactionsCriticalityNoted DateCommentsBismuth SubsalicylateHives 12/02/2020 Other Reaction(s): Other (See Comments) Bismuth-Containing AurquuvblBkhmc59/25/2016 Medications MedicationSigDispense QuantityRefillsLast FilledStart DateEnd DateStatus albuterol HFA 90 mcg/act inhaler INHALE 1-2 PUFFS BY MOUTH EVERY 4-6 HOURS NEEDED FOR COUGH, SHORTNESS OF BREATH, OR WHEEZING.4Active prochlorperazine (Compazine) 10 MG tablet Take 10 mg by mouth 2 (two) times a day as xmgfll215Active ondansetron ODT (Zofran-ODT) 4 MG disintegrating tablet Take 4 mg by mouth every 8 (eight) hours if clfzye155Active etonogestrel-ethinyl estradiol (EluRyng) 0.12-0.015 MG/24HR vaginal ring Indications:6 weeks follow-up ([facility]),Encounter for initial prescription of vaginal ring hormonal contraceptiveINSERT 1 RING INTO THE VAGINA AND LEAVE IN FOR 3 WEEKS, THEN REMOVE FOR 1 WEEK 3 each 5Active Active Problems ProblemNoted DateDiagnosed DateChondromalacia of ojifljw9708/16/2022Smoker 08/16/2022 Encounters DateTypeDepartmentCare XosxNaaxouriotv64/07/2025Clinisync Result Encounter [facility] Department Unsolicited Laurel Jacobson NP 12/04/2024linisync Result Encounter [facility] External Department Unsolicited Laurel Jacobson NP 12/04/2024Telephone [facility] [place] [facility] [address] [place] [address] Lauren Crystal MA 11/22/2024 3:50 PM EDTOffice Visit [facility] [place] [address] [address] Laurel Jacobson NP Breast pain; Mass of right breast, unspecified lsjcmqee95/25/2025amboo flowsheet [facility] [place] [facility] [address] [place] [address] Laurel Jacobson NP from Last 3 Months Family History Medical HistoryRelationNameCommentsHypotensionMotherRelationNameStatusComments FatherAliveMotherAlive Social History Tobacco UseTypesPacks/DayYears UsedDateSmoking Tobacco: Every DayCigarettes Started: 02/28/2007 Tobacco Cessation:Ready to Q uit: Not Asked; Counseling Given: Not Answered Alcohol UseStandard Drinks/WeekCommentsYes0 (1 standard drink = 0.6 oz pure alcohol)1-2 drinks less than monthly in the past yearCommentsNoSex and Gender InformationValueDate RecordedSex Assigned at BirthNot on fileLegal Sex Xxyfgs7305/12/2022 11:16 PM EDTGender IdentityNot on fileSexual OrientationNot on file Last Filed Vital Signs Vital SignReadingTime TakenCommentsBlood Ugginqxh328/72011/22/2024 3:54 PM EDT Pulse--Temperature--Respiratory Rate--Oxygen Saturation--Inhaled Oxygen Concentration--Encmlq79.9 kg (196 lb)11/22/2024 3:54 PM XPBQuzojz853.4 cm (5') 09/15/2023 1:43 PM EDTBody Mass Index38.28009/15/2023 1:43 PM EDT Plan of Treatment DateTypeDepartmentCare Team (Latest Contact Info)Ouokanqlcbu48/21/2025 10:00 AM ESTAncillary Procedure [facility] [address] [facility] [place] [address] 01/18/2025 10:30 AM ESTInitial [facility] [place] [facility] [address] [facility] [place] [address] 04/23/2025 11:00 AM ESTOffice Visit [facility] [address] [place] [address] Alvarado Perry, DO [address] [place] [address] Procedures Procedure NamePriorityDate/TimeAssociated DiagnosisCommentsBI US BREAST LIMITED RIGHT12/04/2024 3:20 PM EDT MM TOMOSYNTHESIS DIAGNOSTIC BI12/04/2024 3:20 PM EDT from Last 3 Months Results * MM TOMOSYNTHESIS DIAGNOSTIC BI (12/04/2024 3:20 PM EDT)Anatomical Region LateralityModalityOtherSpecimen (Source)Anatomical Location / Laterality Collection Method / VolumeCollection TimeReceived Time12/04/2024 3:20 PM EDT Narrative 12/04/2024 3:21 PM EDT [facility] ?[address] ? [place] [address] ? Mammography Report ? Signed ? Patient: VIANEY VERGARA M ?MR#: [id number] ?? : 1995 ?Acct:[id number] ?? Age/Sex: 29 / F ?ADM Date: 12/04/ ?? Loc: MAMMO ? Attending Dr: Laurel Jacobson ? Ordering Physician: Kavon,Laurel ?Results: ? Date of Service: //25 ?Follow Up: ? Procedure(s): MM tomosynthesis diagnostic BI ?? Accession Number(s): [id number] ? cc: Laurel Jacobson; Physician,Non-Staff M.D. ? Patient Name: ? VIANEY VERGARA ? MR#: [id number] ? : 1995 ? Exam Date: 12/04/2024 ?? Ordering Doctor: LAUREL JACOBSON CNP ? RADIOLOGY REPORT ? PROCEDURE: ? MM TOMOSYNTHESIS DIAGNOSTIC BI, 12/04/2024, 14:13 ?? US BREAST RT LIMITED, 12/04/2024, 14:59 ? COMPARISON: ? None. ? INDICATIONS: ? Mass Of Right Breast , Breast Pain ? Calculator Name ? NCI Breast Cancer Risk Assessment Tool ?? 5 Year Breast Cancer Risk ? Not Applicable. ?? Lifetime Breast Cancer Risk ? Not Applicable. ?? Personal Breast Cancer ?No ?? Personal Ovarian Cancer ? No ?? Treatments ? None ?? Family Cancers ? None ? LOCATION: ? [facility] ? BREAST COMPOSITION: ? There are scattered areas of fibroglandular density. ? FINDINGS: ? DIAGNOSTIC CATEGORY 1--NEGATIVE. ? RIGHT BREAST: ??No significant suspicious finding. ??No suspicious abnormality ?? in the area of palpable lump involving the right breast. ?? LEFT BREAST: ??No significant suspicious finding. ? Right breast ultrasound: ??Imaging in the area of palpable lump at the 2 ?? o'clock position of the right breast demonstrates no suspicious mass or cyst. ? RECOMMENDATIONS: ? ROUTINE MAMMOGRAM AND CLINICAL EVALUATION IN 12 MONTHS. ??The patient's ?? palpable lump should be handled on a clinical basis . ? Dictated by: Lexa Abdalla DO on 12/04/2024 at 15:16 ? Approved by: Lexa Abdalla DO on 12/04/2024 at 15:20 ? Dictated By: ?Lexa Abdalla M.D. ? Signed By: ?12/04/24 1521 ? DD/ 1520 ? TD/TT: ? Occupational Health And Safety Officer: Procedure Note Radiology, Radiologist, MD - 12/04/2024 [facility] [place] [id number] Mammography Report Signed Patient: VIANEY VERGARA MMR#: [id number] : 1995Acct:[id number] Age/Sex: 29 FADM Date: 12/04/24 Loc: MAMMO Attending Dr: Laurel Jacobson Ordering Physician: Miranda Jacobsonults: Date of Service: 12/04/24Follow Up: Procedure(s): MM tomosynthesis diagnostic BI Accession Number(s): [id number] cc: Laurel Jacobson; Physician,Non-Staff M.D. Patient Name: VIANEY VERGARA MR#: [id number] : 1995 Exam Date: 12/04/2024 Ordering Doctor: LAUREL JACOBSON [facility] RADIOLOGY REPORT PROCEDURE: MM TOMOSYNTHESIS DIAGNOSTIC BI, 12/04/2024, 14:13 US BREAST RT LIMITED, 12/04/2024, 14:59 COMPARISON: None. INDICATIONS: Mass Of Right Breast , Breast Pain Calculator Name NCI Breast Cancer Risk Assessment Tool 5 Year Breast Cancer Risk Not Applicable. Lifetime Breast Cancer Risk Not Applicable. Personal Breast Cancer No Personal Ovarian Cancer No Treatments None Family Cancers None LOCATION: [facility] BREAST COMPOSITION: There are scattered areas of fibroglandulardensity. FINDINGS: DIAGNOSTIC CATEGORY 1--NEGATIVE. RIGHT BREAST: No significant suspicious finding. No suspiciousabnormality in the area of palpable lump involving the right breast. LEFT BREAST: No significant suspicious finding. Right breast ultrasound: Imaging in the area of palpable lump at the 2 o'clock position of the right breast demonstrates no suspicious mass orcyst. RECOMMENDATIONS: ROUTINE MAMMOGRAM AND CLINICAL EVALUATION IN 12 MONTHS. The patient's palpable lump should be handled on a clinical basis . Dictated by: Lexa Abdalla DO on 12/04/2024 at 15:16 Approved by: Lexa Abdalla DO on 12/04/2024 at 15:20 Dictated By: Lexa Abdalla M.D. Signed By:12/04/24 1521 DD/ 1520 TD/TT: Occupational Health And Safety Officer: Authorizing ProviderResult TypeResult StatusKristina Kavon NPCLINISYNC IMAGING Final Result * Right breast US limited (12/04/2024 3:20 PM EDT)Anatomical RegionLaterality ModalityBreastRightUltrasoundSpecimen (Source)Anatomical Location / Laterality Collection Method / VolumeCollection TimeReceived Time12/04/2024 3:20 PM EDT Narrative 12/04/2024 3:21 PM EDT [facility] ?[address] ? [place] [address] ? Ultrasound Report ? Signed ? Patient: VIANYE VERGARA ?MR#: [id number] ?? : 1995 ?Acct:[id number] ?? Age/Sex: 29 / F ?ADM Date: 12/04/24 ?? Loc: MAMMO ? Attending Dr: Laurel Jacobson ? Ordering Physician: Laurel Jacobson ?? Date of Service: 12/04/24 ?? Procedure(s): US breast RT limited ?? Accession Number(s): [id number] ? cc: Laurel Jacobson; Physician,Non-Staff M.D. ? Patient Name: ? VIANEY VERGARA ? MR#: [id number] ? : 1995 ? Exam Date: 12/04/2024 ?? Ordering Doctor: LAUREL JACOBSON CNP ? RADIOLOGY REPORT ? PROCEDURE: ? MM TOMOSYNTHESIS DIAGNOSTIC BI, 12/04/2024, 14:13 ?? US BREAST RT LIMITED, 12/04/2024, 14:59 ? COMPARISON: ? None. ? INDICATIONS: ? Mass Of Right Breast , Breast Pain ? Calculator Name ? NCI Breast Cancer Risk Assessment Tool ?? 5 Year Breast Cancer Risk ? Not Applicable. ?? Lifetime Breast Cancer Risk ? Not Applicable. ?? Personal Breast Cancer ?No ?? Personal Ovarian Cancer ? No ?? Treatments ? None ?? Family Cancers ? None ? LOCATION: ? [facility] ? BREAST COMPOSITION: ? There are scattered areas of fibroglandular density. ? FINDINGS: ? DIAGNOSTIC CATEGORY 1--NEGATIVE. ? RIGHT BREAST: ??No significant suspicious finding. ??No suspicious abnormality ?? in the area of palpable lump involving the right breast. ?? LEFT BREAST: ??No significant suspicious finding. ? Right breast ultrasound: ??Imaging in the area of palpable lump at the 2 ?? o'clock position of the right breast demonstrates no suspicious mass or cyst. ? RECOMMENDATIONS: ? ROUTINE MAMMOGRAM AND CLINICAL EVALUATION IN 12 MONTHS. ??The patient's ?? palpable lump should be handled on a clinical basis . ? Dictated by: Lexa Abdalla DO on 12/04/2024 at 15:16 ? Approved by: Lexa Abdalla DO on 12/04/2024 at 15:20 ? Dictated By: ?Lexa Abdalla M.D. ? Signed By: ?12/04/24 1521 ? DD/ 1520 ? TD/TT: ? Occupational Health And Safety Officer: Procedure Note Radiology, Radiologist, MD - 12/04/2024 [place] [address] Ultrasound Report Signed Patient: VIANEY VERGARA MMR#: [id number] : 1995Acct:[id number] Age/Sex: 29 / FADM Date: 12/04/24 Loc: MAMMO Attending Dr: Laurel Jacobson Ordering Physician: Laurel Jacobson Date of Service: 12/04/24 Procedure(s): US breast RT limited Accession Number(s): [id number] cc: Laurel Jacobson; Physician,Non-Staff M.D. Patient Name: VIANEY VERGARA MR#: [id number] : 1995 Exam Date: 12/04/2024 Ordering Doctor: LAUREL JACOBSON [facility] RADIOLOGY REPORT PROCEDURE: MM TOMOSYNTHESIS DIAGNOSTIC BI, 12/04/2024, 14:13 US BREAST RT LIMITED, 12/04/2024, 14:59 COMPARISON: None. INDICATIONS: Mass Of Right Breast , Breast Pain Calculator Name NCI Breast Cancer Risk Assessment Tool 5 Year Breast Cancer Risk Not Applicable. Lifetime Breast Cancer Risk Not Applicable. Personal Breast Cancer No Personal Ovarian Cancer No Treatments None Family Cancers None LOCATION: [facility] BREAST COMPOSITION: There are scattered areas of fibroglandulardensity. FINDINGS: DIAGNOSTIC CATEGORY 1--NEGATIVE. RIGHT BREAST: No significant suspicious finding. No suspiciousabnormality in the area of palpable lump involving the right breast. LEFT BREAST: No significant suspicious finding. Right breast ultrasound: Imaging in the area of palpable lump at the 2 o'clock position of the right breast demonstrates no suspicious mass orcyst. RECOMMENDATIONS: ROUTINE MAMMOGRAM AND CLINICAL EVALUATION IN 12 MONTHS. The patient's palpable lump should be handled on a clinical basis . Dictated by: Lexa Abdalla DO on 12/04/2024 at 15:16 Approved by: Lexa Abdalla DO on 12/04/2024 at 15:20 Dictated By: Lexa Abdalla M.D. Signed By:12/04/24 1521 DD/ 1520 TD/TT: Occupational Health And Safety Officer: Authorizing ProviderResult TypeResult StatusLaurel Jacobson NPIMG US PROCEDURES Final Result from Last 3 Months Insurance
[2025-01-13 16:15] LABS: Hematocrit 40.2 % (36.0-48.0); Hemoglobin 13.4 g/dL (12.0-16.0); Immature Granulocytes Abs Auto 0.02 10^3/uL (0.00-0.03); Immature Granulocytes Pct Auto 0.2 % (0.0-0.5); Lymphocytes Absolute Auto 2.3 10^3/uL (1.2-3.8); Mean Corpuscular HGB Conc 33.3 g/dL (29.9-35.2); Mean Corpuscular Hemoglobin 29.5 pg (26.7-34.0); Mean Corpuscular Volume 88.4 fL (81.0-99.0); Platelet Count 387 10^3/uL (150-450); Red Blood Count 4.55 10^6/uL (4.20-5.40); White Blood Count 9.1 10^3/uL (4.0-11.0)
[2025-01-13 16:16] LABS: HCG Qualitative Urine* POSITIVE (NEGATIVE)
[2025-01-13 16:17] LABS: Glucose Urine UA NEGATIVE (NEGATIVE)
[2025-01-13 16:28] LABS: Cast Seen? NONE SEEN #/LPF (NONE SEEN); Crystals Seen? None Seen #/HPF (None Seen)
[2025-01-13 16:41] LABS: Alanine Aminotransferase 46 U/L (14-59); Albumin Globulin Ratio 0.9; Albumin Level 3.0 g/dL (3.4-5.0); Alkaline Phosphatase 76 U/L (46-116); Anion Gap 11.1; Aspartate Amino Transferase 17 U/L (15-37); Blood Urea Nitrogen 11.0 mg/dL (7.0-18.0); Calcium 8.4 mg/dL (8.5-10.1); Carbon Dioxide 28.9 mmol/L (21.0-32.0); Chloride 106 mmol/L (98-107); Estimated GFR (African America >60 (>=60 mL/min/1.73m^2); Estimated GFR (Non-African Ame >60 (>=60 mL/min/1.73m^2); Globulin 3.5 g/dL; Glucose 132 mg/dL (74-106); Potassium 4.0 mmol/L (3.5-5.1); Sodium 142 mmol/L (136-145); Total Protein 6.5 g/dL (6.4-8.2)
--- NOTE | 2025-01-13 17:25 | ED_ITS ---
HPI - General Chief complaint: Vaginal Bleeding Stated complaint: vaginal bleeding Time Seen by Provider: 01/13/25 15:51 Source: patient Mode of arrival: walk-in Limitations: no limitations History of Present Illness HPI Narrative: 29-year-old female with a history of suspected 8-week presents the emergency room chief complaint of vaginal bleeding. She was scheduled to see Dr. Perry's office for her initial intake on January 18 for her initial ultrasound. She believes she is approximately 8 weeks . She had a positive test at home. Patient presents today after having intercourse last evening with heavy vaginal bleeding. She has some cramping and left lower quadrant tenderness as well. Patient has a history of previous eclampsia with last year. Her blood type is a positive. Patient is calm cooperative afebrile nontoxic. MD Complaint: Reports abdominal pain and vaginal bleeding Related Data Home Medications ?Medication ?Instructions ?Recorded ?Confirmed vits,calcium 21-iron fum 1 tab PO DAILY 08/0301/13/25 14 mg iron-folic acid 400 mcg tablet ( Complete) Allergies Allergy/AdvReac Type Severity Reaction Status Date / Time bismuth subsalicylate (From Allergy Intermediate Hives Verified 01/13/25 15:44 Pepto-Bismol) Review of Systems ROS Status of ROS 10 or more systems reviewed and unremark able except as noted in history and below [facility] History (Updated 01/13/25 @ 17:24 by Gabriela Bose) Hypertension affecting ?O16.9 - Unspecified maternal hypertension, unspecified trimester (ICD-10) GERD (gastroesophageal reflux disease) ?K21.9 - Gastro-esophageal reflux disease without esophagitis (ICD-10) Surgical History History of exploratory laparotomy ?Z98.890 - Other specified postprocedural states (ICD-10) History of appendectomy ?Z90.49 - Acquired absence of other specified parts of digestive tract (ICD- 10) Social History Little interest or pleasure in doing things: not at all Feeling down, depressed, or hopeless: not at all Exam Narrative Exam Narrative: All Systems are negative except as noted/marked.All systems reviewed and otherwise negative Nurses note and vital signs reviewed and patient is not hypoxic. General: The patient appears well and in no apparent distress. Patient is resting comfortably on cart. Skin: Warm, dry, no pallor noted. There is no rash noted. Head: Normocephalic, atraumatic Eye: Normal conjunctiva, no drainage, EOMI. PERRL Ears, Nose, Mouth, and Throat: oral mucosa is moist. Nares patent. Mouth without vesicles. Ear canals patent. Tm's without Erythema Cardiovascular: Regular Rate and Rhythm Respiratory: Patient is in no distress, no accessory muscle use, lungs are clear to auscultation, no wheezing, rales or rhonchi Back: non-tender, no CVA tenderness bilaterally to percussion. gu: vaginal bleeding per history GI: Normal bowel sounds, no tenderness to palpation, no masses appreciated. No rebound, guarding, or rigidity noted. Musculoskeletal: The patient has no evidence of calf tenderness, no pitting edema, symmetrical pulses noted bilaterally Neurological: A&O x4, normal speech Psychiatric: Cooperative Constitutional Vital Signs, click to edit/add: Last Vital Signs Temp 98.2 F 01/13/25 15:44 Pulse 96 H 01/13/25 15:44 Resp 16 01/13/25 15:44 BP 147/92 H 01/13/25 15:44 Pulse Ox 100 01/13/25 15:44 O2 Del Method Room Air 01/13/25 15:44 Course Vital Signs Vital signs: Vital Signs Temperature 98.2 F 01/13/25 15:44 Pulse Rate 96 H 01/13/25 15:44 Respiratory Rate 16 01/13/25 15:44 Blood Pressure 147/92 H 01/13/25 15:44 Pulse Oximetry 100 01/13/25 15:44 Oxygen Delivery Method Room Air 01/13/25 15:44 Temperature 98.2 F 01/13/25 15:44 Pulse Rate 96 H 01/13/25 15:44 Respiratory Rate 16 01/13/25 15:44 Blood Pressure 147/92 H 01/13/25 15:44 Pulse Oximetry 100 01/13/25 15:44 Oxygen Delivery Method Room Air 01/13/25 15:44 MDM - OB/Uterine Contractions MDM Narrative Medical decision making narrative: 29-year-old female with a history of suspected 8-week presents the emergency room chief complaint of vaginal bleeding. She was scheduled to see Dr. Perry's office for her initial intake on January 18 for her initial ultrasound. She believes she is approximately 8 weeks . She had a positive test at home. Patient presents today after having intercourse last evening with heavy vaginal bleeding. She has some cramping and left lower quadrant tenderness as well. Patient has a history of previous eclampsia with last year. Her blood type is a positive. Patient is calm cooperative afebrile nontoxic. Patient presenting here with chief complaint of vaginal bleeding with i ntrauterine . She has not had an ultrasound at this point. Ultrasound today shows an intrauterine sac may represent very early intrauterine gestation pseudo gestational sac not excluded and no external mass. No free fluid. Follow-up pelvic ultrasound with serial beta hCG levels is recommended to confirm intrauterine gestation and exclude ectopic . Patient will follow-up with her SURVEY DATA TECHNICIAN's office. She will have routine hCG quant levels until the quant level does drop below less than 5 or if it continues to proceed with her . Patient was made aware of results and agrees with plan of care and will follow-up with Dr. Perry's office Differential Diagnosis Differential diagnosis: Likely other (vaginal bleeding in , threatened AB ) Medical Records Attestation: I reviewed the patient's medical records. Lab Data Attestation: I reviewed the patient's lab results. Labs: Lab Results 01/13/25 01/13/25 Range/Units 16:02 16:05 WBC 9.1 (4.0-11.0) 10^3/uL RBC 4.55 (4.20-5.40) 10^6/uL Hgb 13.4 (12.0-16.0) g/dL Hct 40.2 (36.0-48.0) % MCV 88.4 (81.0-99.0) fL MCH 29.5 (26.7-34.0) pg MCHC 33.3 (29.9-35.2) g/dL RDW 14.1 (11.0-15.0) % Plt Count 387 (150-450) 10^3/uL MPV 9.7 (9.5-13.5) fL Neut % (Auto) 63.5 (43.0-75.0) % Lymph % (Auto) 25.7 (20.5-60.0) % [place] % (Auto) 7.2 (1.7-12.0) % Eos % (Auto) 2.7 (0.9-7.0) % Baso % (Auto) 0.7 (0.2-2.0) % Neut # (Auto) 5.8 (1.4-6.5) 10^3/uL Lymph # (Auto) 2.3 (1.2-3.8) 10^3/uL [place] # (Auto) 0.7 (0.3-0.8) 10^3/uL Eos # (Auto) 0.3 (0.0-0.7) 10^3/uL Baso # (Auto) 0.1 (0.0-0.1) 10^3/uL Abs Immat Gran (auto) 0.02 (0.00-0.03) 10^3/uL Imm/Tot Granulo (auto) 0.2 (0.0-0.5) % Sodium 142 (136-145) mmol/L Potassium 4.0 (3.5-5.1) mmol/L Chloride 106 (98-107) mmol/L Carbon Dioxide 28.9 (21.0-32.0) mmol/L Anion Gap 11.1 BUN 11.0 (7.0-18.0) mg/dL Creatinine 0.73 (0.55-1.02) mg/dL Est GFR ( Amer) >60 (>=60 mL/min/1.73m^2) Est GFR (Non-Af Amer) >60 (>=60 mL/min/1.73m^2) BUN/Creatinine Ratio 15.1 Glucose 132 H (74-106) mg/dL Calcium 8.4 L (8.5-10.1) mg/dL Total Bilirubin 0.1 L (0.2-1.0) mg/dL AST 17 (15-37) U/L ALT 46 (14-59) U/L Alkaline Phosphatase 76 (46-116) U/L Total Protein 6.5 (6.4-8.2) g/dL Albumin 3.0 L (3.4-5.0) g/dL Globulin 3.5 g/dL Albumin/Globulin Ratio 0.9 HCG, Quant 427 mIU/mL Urine Color Dk orange A (YELLOW) Urine Clarity Cloudy A (CLEAR) Urine pH 7.0 (5.0-9.0) Ur Specific [place] 1.020 (1.005-1.025) Urine Protein Trace (NEG/TRACE) mg/dL Urine Glucose (UA) Negative (NEGATIVE) mg/dL Urine Ketones Negative (NEGATIVE) mg/dL Urine Occult Blood Large A (NEGATIVE) Urine Nitrite Negative (NEGATIVE) Urine Bilirubin Negative (NEGATIVE) Urine Urobilinogen 1.0 (0.2-1.0) EU/dL Ur Leukocyte Esterase Trace A (NEGATIVE) Urine RBC 50-75 A (0-2) #/HPF Urine WBC 0-2 A (NONE SEEN) #/HPF Ur Squamous Epith Cells Rare (NONE/RARE) #/LPF Urine Crystals None seen (None Seen) #/HPF Urine Bacteria Trace A (NONE SEEN) #/HPF Urine Casts None seen (NONE SEEN) #/LPF Urine Mucus Trace A (NONE SEEN) Urine HCG, Qual Positive A (NEGATIVE) Imaging Data us: Radiologist's impression: ITS Impressions Transvaginal US 01/13/25 15:51 IMPRESSION: Intrauterine sac. May represent very early intrauterine gestation. Pseudogestational sac not excluded. No adnexal mass. No free fluid. Follow-up pelvic ultrasound with serial beta hCG levels recommended to confirm intrauterine gestation and exclude ectopic . Impression dictated by: John Stack M.D. 01/13/2025 5:16 PM Dictation Location: [place] [address] Electronically authenticated by: [id number] Y Date: 01/13/2025 17:16 Discharge Plan Discharge Chief Complaint: Vaginal Bleeding Clinical Impression: Vaginal bleeding affecting early Patient Disposition: Home, Self-Care Time of Disposition Decision: 17:23 Condition: Good Prescriptions / Home Meds: No Action Complete 14 mg iron- 400 mcg tablet 1 tab PO DAILY Print Language: Yoruba Instructions: Threatened Miscarriage (ED) Additional Instructions: repeat HCG quant on 01/15/25. follow up in office as scheduled Referrals: Alvarado Perry DO [Physician, SURVEY DATA TECHNICIAN] - 1 week Ramses Van MD [Primary Care Provider] - 1 week
== END 2025-01-13 17:32 | disposition home or self-care (01) ==
PROVIDERS: Physician Assistant; Emergency Provider Emergency Medicine; PCP Family Medicine
DX: O20.9 Hemorrhage in early pregnancy, unspecified (principal); Z3A.08 8 weeks gestation of pregnancy
CPT/HCPCS: 36415; 76817; 80053; 81001; 84702; 84703; 85025; 99284; 99285

== ENCOUNTER 2025-01-14 11:06 | Outpatient (RCR) | payer BC, SELFPAY | END 2025-01-28 08:24 | disposition home or self-care (01) | LOC: LAB 11:06 | PROVIDERS: PCP Family Medicine; Visit Provider Physician Assistant | DX: O03.9 Complete or unspecified spontaneous abortion without complication (principal); Z51.81 Encounter for therapeutic drug level monitoring | CPT/HCPCS: 36415; 84702 ==